=== PATIENT | male | born 1960 | race Caucasian/White ===

== ENCOUNTER 2019-05-08 07:00 | Outpatient (RCR) | payer MEDICARE, MEDICAID, SELFPAY | END 2019-05-21 14:00 | disposition home or self-care (01) | LOC: PT.CARL 07:00 | PROVIDERS: Visit Provider Physician Assistant Medical | DX: M54.5 Low back pain (principal); M25.552 Pain in left hip; M51.36 Other intervertebral disc degeneration, lumbar region | CPT/HCPCS: 97010; 97012; 97014; 97110; 97140; 97163; G0283 ==

== ENCOUNTER → 2023-01-04 08:36 | Outpatient (CLI) | payer MEDICARE, MEDICAID, SELFPAY ==
--- NOTE | 2023-01-04 08:48 | XR_ITS ---
FINAL REPORT CLINICAL HISTORY: foot pain FINDINGS: 3 weight-bearing views of the left foot were obtained. There is no acute fracture or dislocation. The joint spaces are intact. The soft tissues are unremarkable. IMPRESSION: No acute process. Reviewed, Interpreted and Dictated by Sanjeev Sutton MD Transcribed by Perez Riley Authenticated and [facility]
--- NOTE | 2023-01-04 08:48 | XR_ITS ---
FINAL REPORT CLINICAL HISTORY: foot pain FINDINGS: 3 weight-bearing views of the right foot were obtained. There is no acute fracture or dislocation. The joint spaces are intact. There is a small plantar spur. The soft tissues are unremarkable. IMPRESSION: No acute process. Reviewed, Interpreted and Dictated by Sanjeev Sutton MD Transcribed by Perez Riley Authenticated and [facility]
== END ==
PROVIDERS: PCP Nurse Practitioner; Visit Provider Nurse Practitioner Family
DX: M79.671 Pain in right foot (principal); M79.672 Pain in left foot
CPT/HCPCS: 73630

== ENCOUNTER 2023-03-27 08:42 | Emergency (ER) | payer MEDICARE, MEDICAID, SELFPAY ==
[2023-03-27 08:50] VITALS: BP 147/81; PULSE 60; RESP 21; TEMP 36.6; O2SAT 96; BMI 30.9
--- NOTE | 2023-03-27 09:14 | EXP.UTC ---
Discharge Plan Disposition Patient Disposition: Home, Self-Care Condition: Good Prescriptions Prescriptions: New sulfamethoxazole-trimethoprim [Bactrim DS] 800-160 mg tablet 1 tab PO Q12H Qty: 20 0RF phenazopyridine [Pyridium] 200 mg tablet 200 mg PO Q8H 2 Days Qty: 6 0RF No Action divalproex 500 mg tablet extended release 24 hr PO amlodipine 5 mg tablet 5 mg PO Patient Comments: TAKE 1 TABLET BY MOUTH DAILY. tamsulosin 0.4 mg capsule PO propranolol 20 mg tablet 20 mg PO gabapentin 600 mg tablet 600 mg PO Patient Comments: TAKE 1 TABLET BY MOUTH THREE TIMES DAILY NEEDED. esomeprazole magnesium 40 mg capsule,delayed release(DR/EC) 40 mg PO mesalamine 400 mg capsule (with del rel tablets) PO doxycycline hyclate 100 mg capsule 100 mg PO Patient Comments: TAKE 1 CAPSULE BY MOUTH TWICE A DAY. meloxicam 7.5 mg tablet 7.5 mg PO DAILY 30 Days Qty: 30 2RF Referrals Follow up/Referrals: Consuelo Segundo APRN [Primary Care Provider] - See instructions Activity Restrictions/Add. Instructions Additional Instructions/Restrictions: *Increase fluids. Water not Soda or Tea *Start antibiotic immediately and be sure to take as ordered for the FULL length of time although you should start to see improvement over the next 48 hours *Pyridium as needed Remember this medication will turn your urine . This is normal but it will stain what ever it gets on *You should not use Pyridium for more than 48 hours. If so , follow up with your primary physician to review urine culture and ensure that antibiotic is adequate for infection *Be SURE to follow up anytime for new or worsening symptoms with your family doctor. AND in 48 hours for urine culture results with your family doctor, if you do not have a doctor then you may call back to the [facility] for urine culture results and further treatment. We do recommend that you choose and establish care with a Primary Care Physician. ?AND follow up with them ?in 10-14 days to repeat UA to ensure infection is resolved and blood no longer present *Be sure to let your PCP know that we sent urine cultures from the [facility] so they can follow up to ensure that you area the on the correct antibiotic Call your doctor office and make appointment for 48 hours (2 days from today) ?to follow up and get the results of your urine culture and further treatment Straight to ER if you start having any fever, worsening of symptoms, N/V or any life threatening Clinical Impressions Clinical Impression: Urinary tract infection Qualifiers: Urinary tract infection type: site unspecified Hematuria presence: without hematuria Qualified Code(s): N39.0 - Urinary tract infection, site not specified Instructions Patient Instructions: Trimethoprim/Sulfamethoxazole (Alternative Therapy), DI for Urinary Tract Infection (UTI) Discharge ED Provider: Irma Lopez [facility] HPI General Stated complaint: possible bladder infection Mode of Arrival: Ambulatory Source of Information: Patient Limitations: No Limitations Time Seen by Provider: 03/27/23 09:14 Description of Symptoms (Recalled from Triage Doc. by RN): PATIENT C/O BURNING WITH URINATION, PAIN IN GENITAL AREA AND LOWER BACK PAIN SINCE TUESDAY NIGHT HEENT Symptoms (Recalled from RN notes): No Resp Symptoms (Recalled from RN notes): No Skin Symptoms (Recalled from RN notes): No MS Symptoms (Recalled from RN notes): No Functional Status (Recalled from RN notes): WNL History of Present Illness Provider Complaint: Patient states that he has been having burning with urination, achy like pain in his lower back area but has a bad back and tenderness in his private area State that he has been urinating more frequently than usual and just feels sore there Denies swelling or redness in testicles States that feels like he may have a UTI Related Data Home Medications Medication Instruc
[2023-03-27 09:17] LABS: Microscopic, Urine URINE MICROSCOPIC (MICROSCOPIC)
[2023-03-27 09:39] VITALS: BP 147/81; PULSE 60; RESP 21; TEMP 36.6; O2SAT 96
[2023-03-27 09:49] LABS: Appearance,Urine CLEAR (Clear); Blood, Urine Negative (Negative); Glucose,Urine (UA) 3+ (Negative); Ketones,Urine 1+ (Negative); Leukocyte Esterase,Urine Negative (Negative); Nitrate,Urine POSITIVE (Negative); Protein,Urine 2+ (Negative); Specific Gravity, Urine 1.015 (1.005-1.030)
[2023-03-27 10:00] LABS: Bilirubin,Urine Negative (Negative); Color,Urine Orange (Yellow)
[2023-03-27 10:10] LABS: Bacteria,Urine 1+ /lpf; Squamous Epithelial Cell,Urine Occasional #/hpf (0-5)
== END 2023-03-27 10:18 | disposition home or self-care (01) ==
PROVIDERS: Emergency Provider Nurse Practitioner; PCP Nurse Practitioner
DX: N39.0 Urinary tract infection, site not specified (principal); M54.59 Other low back pain
CPT/HCPCS: 81001; 87086; 99204; 99212; G0463

== ENCOUNTER 2023-08-11 16:20 | Emergency (ER) | payer MEDICARE, MEDICAID, SELFPAY ==
[2023-08-11 16:21] VITALS: BP 132/78; PULSE 56; RESP 16; TEMP 36.8; O2SAT 97; BMI 32.3
--- NOTE | 2023-08-11 16:52 | PC.NURSE ---
DR COSME AT BEDSIDE
--- NOTE | 2023-08-11 16:54 | XR_ITS ---
PROCEDURE INFORMATION: Exam: XR Left Wrist Exam date and time: 08/11/2023 4:58 PM Age: 63 years old Clinical indication: Injury or trauma; Fall; Blunt trauma (contusions or hematomas); Wrist; Left; Additional info: Fall injury. Previously broken 3 different times (no surgery) TECHNIQUE: Imaging protocol: Radiologic exam of the left wrist. Views: 3 or more views. Total images: 3 COMPARISON: CR XR FOREARM LT 2V 08/11/2023 4:58 PM FINDINGS: Bones/joints: No evidence of acute fracture or dislocation. Soft tissues: Soft tissues are within normal limits. IMPRESSION: No evidence of acute fracture or dislocation.
--- NOTE | 2023-08-11 16:54 | XR_ITS ---
PROCEDURE INFORMATION: Exam: XR Left Forearm Exam date and time: 08/11/2023 4:58 PM Age: 63 years old Clinical indication: Injury or trauma; Fall; Blunt trauma (contusions or hematomas); Arm, lower; Left; Prior surgery; Surgery date: 6+ months; Surgery type: Nerve removed; Additional info: Fall injury TECHNIQUE: Imaging protocol: Radiologic exam of the left forearm. Views: 2 views. Total images: 2 COMPARISON: CR XR HAND LT MIN 3V 08/11/2023 4:58 PM FINDINGS: Bones/joints: No evidence of acute fracture or dislocation. Soft tissues: Soft tissues are within normal limits. IMPRESSION: No evidence of acute fracture or dislocation.
--- NOTE | 2023-08-11 16:54 | XR_ITS ---
PROCEDURE INFORMATION: Exam: XR Left Hand Exam date and time: 08/11/2023 4:58 PM Age: 63 years old Clinical indication: Injury or trauma; Fall; Blunt trauma (contusions or hematomas); Hand; Left; Additional info: Fall injury TECHNIQUE: Imaging protocol: Radiologic exam of the left hand. Views: 3 or more views. Total images: 2 COMPARISON: CR XR FOREARM LT 2V 08/11/2023 4:58 PM FINDINGS: Bones/joints: No evidence of acute fracture or dislocation. Degenerative changes of the interphalangeal joints. Soft tissues: Mild soft tissue swelling. IMPRESSION: 1. No evidence of acute fracture or dislocation. 2. Mild soft tissue swelling. 3. Degenerative changes of the interphalangeal joints.
--- NOTE | 2023-08-11 16:55 | ED_ITS ---
Discharge Plan Disposition Patient Disposition: Home, Self-Care Prescriptions Prescriptions: No Action divalproex 500 mg tablet extended release 24 hr PO amlodipine 5 mg tablet 5 mg PO Patient Comments: TAKE 1 TABLET BY MOUTH DAILY. tamsulosin 0.4 mg capsule PO propranolol 20 mg tablet 20 mg PO gabapentin 600 mg tablet 600 mg PO Patient Comments: TAKE 1 TABLET BY MOUTH THREE TIMES DAILY NEEDED. esomeprazole magnesium 40 mg capsule,delayed release(DR/EC) 40 mg PO mesalamine 400 mg capsule (with del rel tablets) PO doxycycline hyclate 100 mg capsule 100 mg PO Patient Comments: TAKE 1 CAPSULE BY MOUTH TWICE A DAY. meloxicam 7.5 mg tablet 7.5 mg PO DAILY 30 Days Qty: 30 2RF sulfamethoxazole-trimethoprim [Bactrim DS] 800-160 mg tablet 1 tab PO Q12H Qty: 20 0RF phenazopyridine [Pyridium] 200 mg tablet 200 mg PO Q8H 2 Days Qty: 6 0RF Referrals Follow up/Referrals: Andrei Calhoun DO [Staff Physician] - See instructions (if you are not improving in 1-2 weeks ) Consuelo Segundo APRN [Primary Care Provider] - See instructions Clinical Impressions Clinical Impression: Left wrist sprain Discharge ED Provider: Fernando Pyle General Adult HPI General Chief complaint: PAIN Stated complaint: AO [id number] lt wrist injury Time Seen by Provider: 08/11/23 16:52 Mode of Arrival: Ambulatory Source of Information: Patient Limitations: No Limitations Description of Symptoms (Recalled from ER Triage Doc. by RN): pt presents to ED with c/o left wrist pain. pt states he tripped and fell earlier today. pt reports he stuck his hands out in front of him to catch himself when he was falling. pt reports pain in right wrist, but not as bad as left wrist History of Present Illness HPI narrative: Is a 63-year-old male presents today with left forearm wrist and hand pain after falling. This was a mechanical fall where he tripped over a board. Fell majority on his left hand no injuries elsewhere. States he has broken his wrist multiple times in the past on the same side that he is hurting today. Denies any need for any type of pain medication. Has normal function and sensory history. Related Data Home Medications Medication Instructions Recorded Confirmed amlodipine 5 mg tablet 5 mg PO 01/04/23 01/04/23 divalproex 500 mg tablet,extended tab PO 01/04/23 01/04/23 release 24 hr doxycycline hyclate 100 mg capsule 100 mg PO 01/04/23 01/04/23 esomeprazole magnesium 40 mg 40 mg PO 01/04/23 01/04/23 capsule,delayed release gabapentin 600 mg tablet 600 mg PO 01/04/23 01/04/23 mesalamine 400 mg capsule (with cap PO 01/04/23 01/04/23 delayed release tablets inside) propranolol 20 mg tablet 20 mg PO 01/04/23 01/04/23 tamsulosin 0.4 mg capsule cap PO 01/04/23 01/04/23 Previous Rx's Medication Instructions Recorded meloxicam 7.5 mg tablet 7.5 mg PO DAILY RIGHT FOOT PAIN 30 01/04/23 days #30 tabs phenazopyridine 200 mg tablet 200 mg PO Q8H pain 2 days #6 tabs 03/27/23 (Pyridium) sulfamethoxazole 800 1 tab PO Q12H #20 tabs 03/27/23 mg-trimethoprim 160 mg tablet (Bactrim DS) Allergies Allergy/AdvReac Type Severity Reaction Status Date / Time prednisone Allergy Mild Verified 08/11/23 16:36 levofloxacin [From Levaquin] Allergy Verified 08/11/23 16:36 lithium Allergy Verified 08/11/23 16:36 metronidazole [From Flagyl] Allergy Verified 08/11/23 16:36 mometasone furoate Allergy Verified 08/11/23 16:36 [From Asmanex Twisthaler] montelukast [From Singulair] Allergy Verified 08/11/23 16:36 [facility] Disclaimer: The information contained in this section may have been updated after the patient was seen, as this information can be updated by other users. Surgical History (Updated 01/04/23 @ 09:30 by MONCHO Hale) History of hip replacement Family History (Updated 01/04/23 @ 09:33 by MONCHO Hale) Brother Asthma Hypertension Mother Cancer Hypertension Sister Diabetes Hypertension Brother Diabetes Hypertension Grandfather Tuberculosis Social History (Updated 01/04/23 @ 09:35 by MONCHO Hale) Smoking Status: Never smoker second hand exposure: No alcohol intake: never substance use type: denies use current occupational status: unemployed Travel in the last 8 weeks: None lives independently: No marital status: ROS Obtained: Yes All systems reviewed & no additional complaints except as documented Physical Exam General General appearance: alert Respiratory Respiratory exam: Present normal lung sounds bilaterally Cardiovascular Cardiovascular exam: Present regular rate; Absent tachycardia Extremities Exam Extremities exam: Present other (Patient has significant tenderness over the distal radius on the left hand in the middle aspect of the dorsal aspect of the left hand also has some pain with compression of the proximal forearm normal neurovascular exam) Neurological Exam Neurological exam: Present alert and oriented X3 Medical Decision Making Jeet Inquiry Pt receiving controlled substance: No Vital Signs: 08/11/23 16:21 08/11/23 17:41 Temperature 98.2 F 97.9 F Temperature Source Oral Oral Pulse Rate 62 Pulse Rate [Left Radial] 56 L Respiratory Rate 16 18 Blood Pressure 135/84 Blood Pressure [Right Arm] 132/78 Blood Pressure Mean [Right Arm] 96 Blood Pressure Source Automatic Cuff Blood Pressure Position Sitting 02 Sat by Pulse Oximetry 97 Oxygen Delivery Method Room Air Room Air Orders (Tests/Meds): ORDERS Category Date Time Status Forearm XR left 2 views [XR forearm LT 2V] Stat Exams 08/11/23 16:54 Completed Wrist XR left minimum 3 views [XR wrist LT min 3V] Stat Exams 08/11/23 16:54 Completed XR hand LT min 3V Stat Exams 08/11/23 16:54 Completed Medical Decision Narrative: With above history differential includes left forearm wrist and hand sprain fracture dislocation we will get plain films for further evaluation. Reassessment 5:42 PM x-rays of the forearm wrist and hand were performed which I personally interpreted shows no acute fracture or dislocation this is consistent with radiology read patient was given a Velcro splint for comfort and advised to follow-up with orthopedics in 1 to 2 weeks if not improving otherwise supportive care discussed. Critical Care Critical Care Time Critical Care Time: No
[2023-08-11 17:41] VITALS: BP 135/84; PULSE 62; RESP 18; TEMP 36.6; O2SAT 97
--- NOTE | 2023-08-16 23:37 | PC.NURSE ---
chart accessed for ortho paperwork
== END 2023-08-11 17:43 | disposition home or self-care (01) ==
PROVIDERS: Emergency Provider Emergency Medicine; PCP Nurse Practitioner
DX: S63.502A Unspecified sprain of left wrist, initial encounter (principal); W01.0XXA Fall on same level from slipping, tripping and stumbling without subsequent striking against object, initial encounter
CPT/HCPCS: 73090; 73110; 73130; 99284

== ENCOUNTER 2024-03-13 20:44 | Emergency (ER) | payer MEDICARE, MEDICAID, SELFPAY ==
[2024-03-13 20:45] VITALS: BP 142/85; PULSE 66; RESP 18; TEMP 36.9; O2SAT 95; BMI 31.3
--- NOTE | 2024-03-13 21:26 | ED_ITS ---
Discharge Plan Disposition Patient Disposition: Home, Self-Care Prescriptions Prescriptions: No Action divalproex 500 mg tablet extended release 24 hr PO amlodipine 5 mg tablet 5 mg PO Patient Comments: TAKE 1 TABLET BY MOUTH DAILY. tamsulosin 0.4 mg capsule PO propranolol 20 mg tablet 20 mg PO gabapentin 600 mg tablet 600 mg PO Patient Comments: TAKE 1 TABLET BY MOUTH THREE TIMES DAILY NEEDED. esomeprazole magnesium 40 mg capsule,delayed release(DR/EC) 40 mg PO mesalamine 400 mg capsule (with del rel tablets) PO doxycycline hyclate 100 mg capsule 100 mg PO Patient Comments: TAKE 1 CAPSULE BY MOUTH TWICE A DAY. meloxicam 7.5 mg tablet 7.5 mg PO DAILY 30 Days Qty: 30 2RF sulfamethoxazole-trimethoprim [Bactrim DS] 800-160 mg tablet 1 tab PO Q12H Qty: 20 0RF phenazopyridine [Pyridium] 200 mg tablet 200 mg PO Q8H 2 Days Qty: 6 0RF Referrals Follow up/Referrals: Consuelo Segundo APRN [Primary Care Provider] - See instructions Activity Restrictions/Add. Instructions Additional Instructions/Restrictions: At this time it was felt you are safe to be discharged home. If new or worsening symptoms please do not hesitate to return the emergency department. Please apply 0.5 cm strip in the inferior lid of your erythromycin ointment 3 times a day for 5 days as discussed. Clinical Impressions Clinical Impression: Foreign body, intraocular, Corneal abrasion Print Language Print Language: Mohawk Discharge ED Provider: Fernando Pyle General Adult HPI General Chief complaint: Eye Problems Stated complaint: FB RT eye Time Seen by Provider: 03/13/24 20:53 Mode of Arrival: Ambulatory Source of Information: Patient Limitations: No Limitations Description of Symptoms (Recalled from ER Triage Doc. by RN): Pt to ED with c/o something in his right eye. states it could possibly be metal. History of Present Illness HPI narrative: Patient is 63-year-old male, diabetic who presents emergency department for ocular foreign body. Patient was backing out of screw over his head when he had a thea of something fall in his right eye. He was not welding. He was not angled grinding. No other acute complaints at this time. Related Data Home Medications ?Medication ?Instructions ?Recorded ?Confirmed amlodipine 5 mg tablet 5 mg PO 01/04/23 01/04/23 divalproex 500 mg tablet,extended tab PO 01/04/23 01/04/23 release 24 hr doxycycline hyclate 100 mg capsule 100 mg PO 01/04/23 01/04/23 esomeprazole magnesium 40 mg 40 mg PO 01/04/23 01/04/23 capsule,delayed release gabapentin 600 mg tablet 600 mg PO 01/04/23 01/04/23 mesalamine 400 mg capsule (with cap PO 01/04/23 01/04/23 delayed release tablets inside) propranolol 20 mg tablet 20 mg PO 01/04/23 01/04/23 tamsulosin 0.4 mg capsule cap PO 01/04/23 01/04/23 Previous Rx's ?Medication ?Instructions ?Recorded meloxicam 7.5 mg tablet 7.5 mg PO DAILY RIGHT FOOT PAIN 01/04/23 days #30 tabs phenazopyridine 200 mg tablet 200 mg PO Q8H pain 2 days #6 tabs 03/27/23 (Pyridium) sulfamethoxazole 800 1 tab PO Q12H #20 tabs 03/27/23 mg-trimethoprim 160 mg tablet (Bactrim DS) Allergies Allergy/AdvReac Type Severity Reaction Status Date / Time prednisone Allergy Mild Verified 08/11/23 16:36 levofloxacin [From Levaquin] Allergy Verified 08/11/23 16:36 lithium Allergy Verified 08/11/23 16:36 metronidazole [From Flagyl] Allergy Verified 08/11/23 16:36 mometasone furoate Allergy Verified 08/11/23 16:36 [From Asmanex Twisthaler] montelukast [From Singulair] Allergy Verified 08/11/23 16:36 PFSH PFS Disclaimer: The information contained in this section may have been updated after the patient was seen, as this information can be updated by other users. Surgical History (Updated 01/04/23 @ 09:30 by MONCHO Hale) History of hip replacement Family History (Updated 01/04/23 @ 09:33 by MONCHO Hale) Brother Asthma Hypertension Mother Cancer Hypertension Sister Diabetes Hypertension Brother Diabetes Hypertension Grandfather Tuberculosis Social History (Updated 01/04/23 @ 09:35 by MONCHO Hale) Smoking Status: Current some day smoker second hand exposure: No alcohol intake: never substance use type: denies use current occupational status: unemployed Travel in the last 8 weeks: None lives independently: No marital status: ROS Obtained: Yes Systems reviewed as appropriate & no additional complaints except as documented Physical Exam General General appearance: alert and in no apparent distress Head Head exam: atraumatic and normocephalic Eye Eye exam: Present PERRL and other (Ocular foreign body at the 6:00 while looking extreme vertical gaze along the sclera and conjunctiva.) ENT ENT exam: Present mucous membranes moist Neck Neck exam: Present normal inspection Chest Chest inspection: Present normal inspection Respiratory Respiratory exam: Absent respiratory distress Cardiovascular Cardiovascular exam: Present regular rate and normal rhythm Abdominal Exam Abdominal exam: Present soft Extremities Exam Extremities exam: Present normal inspection Neurological Exam Neurological exam: Present alert Psychiatric Psychiatric exam: Present normal affect Skin Skin exam: Present warm and dry Medical Decision Making Jeet Inquiry Pt receiving controlled substance: No Vital Signs: 03/13/24 20:45 03/13/24 21:27 Temperature 98.4 F 98.4 F Temperature Source Oral Oral Pulse Rate 65 Pulse Rate [Left Radial] 66 Respiratory Rate 18 18 Blood Pressure 132/81 Blood Pressure [Right Arm] 142/85 H Blood Pressure Mean [Right Arm] 104 Blood Pressure Source Automatic Cuff Blood Pressure Source [Right Arm] Automatic Cuff Blood Pressure Position Sitting Blood Pressure Position [Right Arm] Sitting 02 Sat by Pulse Oximetry 95 Oxygen Delivery Method Room Air Room Air Medical Decision Narrative: In summary patient is 63-year-old male past medical history described who presents emergency department for evaluation of ocular foreign body. Patient is hemodynamically stable nontoxic-appearing but arrival, afebrile. Initially was unable to locate ocular foreign body however upon fluorescein exam and with help from patient's significant other at bedside it was identified at 6:00 with extreme vertical gaze. It was easily removed with a Q-tip. He has a small corneal abrasion for which she will be treated with erythromycin and outpatient basis. Patient is appropriate for discharge at this time after his Tdap was updated. Procedure: Procedure performed was ocular examination. Procedure performed by Fernando Pyle. Using topical tetracaine the eye was numbed with good effect. Fluorescein staining showed corneal abrasion about the foreign body at 6:00 in the right eye with extreme vertical gaze. Critical Care Critical Care Time Critical Care Time: No
[2024-03-13 21:27] VITALS: BP 132/81; PULSE 65; RESP 18; TEMP 36.9; O2SAT 96
[2024-03-13] MEDS: TET/DIPHTH/PERT-ADULT 0.5ML SYRINGE 0.5 ML IM (21:32)
[2024-03-13] MEDS: ERYTHROMYCIN BASE 1 GM OINT...G. OP (21:41)
[2024-03-13] MEDS: FLUORESCEIN SODIUM 1MG STRIP 1 MG OP (21:41)
[2024-03-13] MEDS: TETRACAINE 0.5% OPTH SOL 15ML OP (21:43)
== END 2024-03-13 21:53 | disposition home or self-care (01) ==
PROVIDERS: Emergency Provider Emergency Medicine; PCP Nurse Practitioner
DX: T15.01XA Foreign body in cornea, right eye, initial encounter (principal); W44.9XXA Unspecified foreign body entering into or through a natural orifice, initial encounter; Z23 Encounter for immunization
CPT/HCPCS: 65220; 90471; 90715; 99283

== ENCOUNTER 2024-03-29 18:11 | Emergency (ER) | payer MEDICARE, MEDICAID, SELFPAY ==
[2024-03-29 18:14] VITALS: BP 128/79; PULSE 59; RESP 18; TEMP 36.6; O2SAT 97; BMI 32.4
[2024-03-29 18:31] VITALS: BP 118/70; PULSE 61; O2SAT 95
[2024-03-29 19:01] VITALS: BP 109/65; PULSE 60; O2SAT 96
--- NOTE | 2024-03-29 19:08 | HMH.EDGENADL ---
Discharge Plan Disposition Patient Disposition: Home, Self-Care Prescriptions Prescriptions: No Action divalproex 500 mg tablet extended release 24 hr PO amlodipine 5 mg tablet 5 mg PO Patient Comments: TAKE 1 TABLET BY MOUTH DAILY. tamsulosin 0.4 mg capsule PO propranolol 20 mg tablet 20 mg PO gabapentin 600 mg tablet 600 mg PO Patient Comments: TAKE 1 TABLET BY MOUTH THREE TIMES DAILY NEEDED. esomeprazole magnesium 40 mg capsule,delayed release(DR/EC) 40 mg PO mesalamine 400 mg capsule (with del rel tablets) PO doxycycline hyclate 100 mg capsule 100 mg PO Patient Comments: TAKE 1 CAPSULE BY MOUTH TWICE A DAY. meloxicam 7.5 mg tablet 7.5 mg PO DAILY 30 Days Qty: 30 2RF sulfamethoxazole-trimethoprim [Bactrim DS] 800-160 mg tablet 1 tab PO Q12H Qty: 20 0RF phenazopyridine [Pyridium] 200 mg tablet 200 mg PO Q8H 2 Days Qty: 6 0RF Referrals Follow up/Referrals: Consuelo Segundo APRN [Primary Care Provider] - See instructions Activity Restrictions/Add. Instructions Additional Instructions/Restrictions: Your symptoms are consistent with a concussion and postconcussive symptoms. As discussed to 48 hours out from an injury is exceedingly unlikely with your exam that we would find anything on a CAT scan that would require neurosurgical intervention. A CT scan was offered however after discussion and shared decision making and you stating that you would not even consider neurosurgical intervention there is no indication for ordering a CT scan as that would be the purpose of ordering the test would be to look for those abnormalities that would require further intervention. Please return with any significant worsening of her mental status neurologic deficits or other concerns. Otherwise expect postconcussive symptoms allow several days to weeks. Clinical Impressions Clinical Impression: Concussion Print Language Print Language: [place] Discharge ED Provider: Supriya Plummer General Adult [facility] General Chief complaint: Head Injury Stated complaint: Sent by janna Castillo in head with low beam Time Seen by Provider: 03/29/24 19:01 Mode of Arrival: Ambulatory Source of Information: Patient Limitations: No Limitations Description of Symptoms (Recalled from ER Triage Doc. by RN): c/o slurred speech, stuttering, dizziness and head pain that goes into the back of his neck since hitting his head on a beam, states he was walking his dog 8-10 days ago and he ran him into a beam causing him to hit the top of his head. Denies any loc, Pt states he has had a decreased appetite and nausea, ozempic started 5 weeks ago. Pt reports that he found a tick on his groin yesterday and if everything is negative in the ER, she is starting him on medicine for lyme disease. History of Present Illness HPI narrative: The patient is a 63-year-old man presenting today after being told to come to the Emergency Department for further evaluation after a head injury from 48 hours ago. He is not any antiplatelets or any anticoagulation. States that he was walking a dog that led him into a beam and struck the top portion of his head. Since that time he had some nausea and vomiting some dizziness. No changes in his mental status or no focal neurologic deficits according to he and his family member who is at the bedside. Does have some chronic nausea vomiting associated with Ozempic. Additionally he had an embedded tick that he saw his doctor for earlier today that they will be treating outpatient but he does not complaining of anything regarding that today. Related Data Home Medications ?Medication ?Instructions ?Recorded ?Confirmed amlodipine 5 mg tablet 5 mg PO 01/04/23 01/04/23 divalproex 500 mg tablet,extended tab PO 01/04/23 01/04/23 release 24 hr doxycycline hyclate 100 mg capsule 100 mg PO 01/04/23 01/04/23 esomeprazole magnesium 40 mg 40 mg PO 01/04/23 01/04/23 capsule,delayed release gabapentin 600 mg tablet 600 mg PO 01/04/23 01/04/23 mesalamine 400 mg capsule (with cap PO 01/04/23 01/04/23 delayed release tablets inside) propranolol 20 mg tablet 20 mg PO 01/04/23 01/04/23 tamsulosin 0.4 mg capsule cap PO 01/04/23 01/04/23 Previous Rx's ?Medication ?Instructions ?Recorded meloxicam 7.5 mg tablet 7.5 mg PO DAILY RIGHT FOOT PAIN 01/04/23 days #30 tabs phenazopyridine 200 mg tablet 200 mg PO Q8H pain 2 days #6 tabs 03/27/23 (Pyridium) sulfamethoxazole 800 1 tab PO Q12H #20 tabs 03/27/23 mg-trimethoprim 160 mg tablet (Bactrim DS) Allergies Allergy/AdvReac Type Severity Reaction Status Date / Time prednisone Allergy Mild Verified 08/11/23 16:36 levofloxacin [From Levaquin] Allergy Verified 08/11/23 16:36 lithium Allergy Verified 08/11/23 16:36 metronidazole [From Flagyl] Allergy Verified 08/11/23 16:36 mometasone furoate Allergy Verified 08/11/23 16:36 [From Asmanex Twisthaler] montelukast [From Singulair] Allergy Verified 08/11/23 16:36 [facility] Disclaimer: The information contained in this section may have been updated after the patient was seen, as this information can be updated by other users. Surgical History (Updated 01/04/23 @ 09:30 by MONCHO Hale) History of hip replacement Family History (Updated 01/04/23 @ 09:33 by MONCHO Hale) Brother Asthma Hypertension Mother Cancer Hypertension Sister Diabetes Hypertension Brother Diabetes Hypertension Grandfather Tuberculosis Social History (Updated 01/04/23 @ 09:35 by MONCHO Hale) Smoking Status: Unknown if ever smoked second hand exposure: No alcohol intake: never substance use type: denies use current occupational status: unemployed Travel in the last 8 weeks: None lives independently: No marital status: ROS Obtained: Yes All systems reviewed & no additional complaints except as documented Physical Exam General General appearance: alert and in no apparent distress Head Head exam: other (No evidence of depressible fracture Murray sign or raccoon eyes) Neck Neck exam: Absent tenderness Respiratory Respiratory exam: Present normal lung sounds bilaterally Cardiovascular Cardiovascular exam: Present regular rate and normal rhythm Neurological Exam Neurological exam: Present alert, oriented X3, CN II-XII intact and normal gait; Absent motor sensory deficit Medical Decision Making Jeet Inquiry Pt receiving controlled substance: No Vital Signs: 03/29/24 18:14 03/29/24 18:31 03/29/24 19:01 Temperature 97.9 F Temperature Source Oral Pulse Rate 61 60 Pulse Rate [Left Radial] 59 L Respiratory Rate 18 Blood Pressure 118/70 109/65 L Blood Pressure [Right Arm] 128/79 Blood Pressure Mean [Right Arm] 95 Blood Pressure Source [Right Arm] Automatic Cuff 02 Sat by Pulse Oximetry 97 95 96 Oxygen Delivery Method Room Air Medical Decision Narrative: 63-year-old to 48 hours out not on any anticoagulants or antiplatelets presenting today after a minor head injury nausea and vomiting. Symptoms are consistent with a concussion. Exceedingly unlikely that we would find any type of abnormality on his CAT scan that would require neurosurgical intervention and from my perspective that is the purpose of a CT scan in the setting of acute head trauma. He is also [place] head CT negative. After extensive discussion with the patient and shared decision making he also told me that he would not even be willing to consider neurosurgical intervention even if we did find an abnormality, we decided not to proceed with a CT scan. I have advised that he and his family member keep an eye on him if his mental status worsens that he should return but at this point no indication for any CT imaging as it would not change any management. He has been advised of what to expect with postconcussive symptoms and postconcussive syndrome and he is aware of this and agreeable to this plan. He will follow back up with his primary care doctor tomorrow regarding the tick bite that he was evaluated for earlier today. I do not believe that has anything to do with his presentation today. Critical Care Critical Care Time Critical Care Time: No
[2024-03-29 19:12] VITALS: BP 109/65; PULSE 77; RESP 18; TEMP 36.7; O2SAT 98
== END 2024-03-29 19:13 | disposition home or self-care (01) ==
PROVIDERS: Emergency Provider Student in an Organized Health Care Education/Training Program; PCP Nurse Practitioner
DX: S06.0X0A Concussion without loss of consciousness, initial encounter (principal); R11.2 Nausea with vomiting, unspecified; R42 Dizziness and giddiness; W22.8XXA Striking against or struck by other objects, initial encounter
CPT/HCPCS: 99283

== ENCOUNTER 2024-05-29 17:15 | Emergency (ER) | payer MEDICARE, MEDICAID, SELFPAY ==
[2024-05-29 17:45] VITALS: BP 117/76; PULSE 93; RESP 21; TEMP 37.9; O2SAT 97; BMI 31.4
--- NOTE | 2024-05-29 18:10 | ED_ITS ---
Discharge Plan Disposition Patient Disposition: Home, Self-Care Condition: Good Prescriptions Prescriptions: New azithromycin [Zithromax Z-Dangelo] 250 mg tablet See Rx Instructions .ROUTE .COMPLEX 5 Days Qty: 6 0RF Rx Instructions: For 250 mg dose pack: take 500 mg today (day 1), then 250 mg for 4 days (days 2-5) benzonatate 100 mg capsule 100 mg PO TID PRN (Reason: cough) Qty: 30 0RF guaifenesin [Mucinex] 600 mg tablet extended release 12hr 600 mg PO BID PRN (Reason: cough) Qty: 20 0RF ondansetron 4 mg tablet,disintegrating 4 mg PO Q8H PRN (Reason: nausea and vomiting) Qty: 10 0RF No Action gabapentin 600 mg tablet 600 mg PO TID Patient Comments: TAKE ONE TABLET BY MOUTH THREE TIMES DAILY atorvastatin 20 mg tablet 20 mg PO DAILY Patient Comments: TAKE ONE TABLET BY MOUTH DAILY amlodipine 5 mg tablet 5 mg PO DAILY Patient Comments: TAKE ONE TABLET BY MOUTH DAILY ropinirole 2 mg tablet 2 mg PO HS Patient Comments: TAKE ONE TABLET BY MOUTH NIGHTLY AT BEDTIME esomeprazole magnesium 40 mg capsule,delayed release(DR/EC) 40 mg PO BID Patient Comments: TAKE ONE CAPSULE BY MOUTH TWICE DAILY finasteride 5 mg tablet 5 mg PO DAILY Patient Comments: TAKE ONE TABLET BY MOUTH ONCE DAILY alfuzosin 10 mg tablet extended release 24 hr 10 mg PO DAILY Patient Comments: TAKE ONE TABLET BY MOUTH EVERY DAY mesalamine 0.375 gram capsule,extended release 24hr 0.375 g PO DAILY Patient Comments: Take 4 capsules every day by oral route as directed for 90 days. Jardiance 25 mg tablet 25 mg PO DAILY Patient Comments: Take 1 tablet every day by oral route. Ozempic 0.25 mg or 0.5 mg (2 mg/3 mL) pen injector 0.25 mg SQ WEEKLY Patient Comments: INJECT 0.25 MG WEEKLY SUBCUTANEOUSLY FOR 30 DAYS Referrals Follow up/Referrals: Consuelo Segundo APRN [Primary Care Provider] - See instructions Activity Restrictions/Add. Instructions Additional Instructions/Restrictions: * Start antibiotic today. Be sure to complete entire prescription even if feeling better * Monitor temp. Tylenol every 4 hours as needed and / or ibuprofen every 6 hours as needed ( As long as your primary care physician has told you that it ok to take both. For fever/aches/pains ER if no less than 101 despite Tylenol or Motrin * Humidifier/vaporizer or hot steamy shower * Inhaler every 4-6 hours as needed like we discussed. If unsure how to use it, ask pharmacist to demonstrate how. Should help open airways and improve cough, wheezing, and shortness of breath * Mucinex during the day for your cough and cough suppressant only at night. Be sure to drink lots of water. *Tessalon Perles will not cause drowsiness but use at bedtime to help stop cough so that you may get some rest. Follow up IMMEDIATELY for new or worsening of symptoms OR no noticeable improvement over the next 48-72 hours. 911 immediately for any life threatening symptoms such as chest pain or difficulty breathing Clinical Impressions Clinical Impression: Bronchitis Instructions Patient Instructions: Cough Print Language Print Language: [place] Discharge ED Provider: Irma Lopez [facility] [place] General Stated complaint: cough,body aches,headache Mode of Arrival: Ambulatory Source of Information: Patient Limitations: No Limitations Time Seen by Provider: 05/29/24 18:11 Description of Symptoms (Recalled from Triage Doc. by RN): PATIENT C/O COUGH, SORE THROAT, BODY ACHES, NAUSEA, AND CHEST CONGESTION SINCE TUESDAY MORNING HEENT Symptoms (Recalled from RN notes): Yes Resp Symptoms (Recalled from RN notes): Yes Skin Symptoms (Recalled from RN notes): No MS Symptoms (Recalled from RN notes): No Functional Status (Recalled from RN notes): WNL History of Present Illness Provider Complaint: Patient states that he had COVID about 3 weeks ago, States since Tuesday he has been having cough, sore throat, chest congestion and at times nausea/vomiting after coughing episode, and fever States today he was having chills and not feeling any better States feels like bronchitis so he came in to get checked Related Data Home Medications ?Medication ?Instructions ?Recorded ?Confirmed alfuzosin 10 mg tablet,extended 10 mg PO DAILY 05/29/24 05/29/24 release 24 hr amlodipine 5 mg tablet 5 mg PO DAILY 05/29/24 05/29/24 atorvastatin 20 mg tablet 20 mg PO DAILY 05/29/24 05/29/24 empagliflozin 25 mg tablet 25 mg PO DAILY 05/29/24 05/29/24 (Jardiance) esomeprazole magnesium 40 mg 40 mg PO BID 05/29/24 05/29/24 capsule,delayed release finasteride 5 mg tablet 5 mg PO DAILY 05/29/24 05/29/24 gabapentin 600 mg tablet 600 mg PO TID 05/29/24 05/29/24 mesalamine 0.375 gram 0.375 g PO DAILY 05/29/24 05/29/24 capsule,extended release 24 hr ropinirole 2 mg tablet 2 mg PO HS 05/29/24 05/29/24 semaglutide 0.25 mg or 0.5 mg (2 0.25 mg SQ WEEKLY 05/29/24 05/29/24 mg/3 mL) subcutaneous pen injector (Ozempic) Previous Rx's ?Medication ?Instructions ?Recorded azithromycin 250 mg tablet See Rx Instructions PO .COMPLEX 5 05/29/24 (Zithromax Z-Dangelo) days #6 tabs benzonatate 100 mg capsule 100 mg PO TID PRN cough #30 caps 05/29/24 guaifenesin 600 mg tablet, 600 mg PO BID PRN cough #20 tabs 05/29/24 extended release 12 hr (Mucinex) ondansetron 4 mg disintegrating 4 mg PO Q8H PRN nausea and 05/29/24 tablet vomiting #10 tabs Allergies Allergy/AdvReac Type Severity Reaction Status Date / Time prednisone Allergy Mild Verified 08/11/23 16:36 levofloxacin [From Levaquin] Allergy Verified 08/11/23 16:36 lithium Allergy Verified 08/11/23 16:36 metronidazole [From Flagyl] Allergy Verified 08/11/23 16:36 mometasone furoate Allergy Verified 08/11/23 16:36 [From Asmanex Twisthaler] montelukast [From Singulair] Allergy Verified 08/11/23 16:36 Worker's Comp Is this a Worker's Comp case?: No [facility] Disclaimer: The information contained in this section may have been updated after the patient was seen, as this information can be updated by other users. Medical History (Updated 05/29/24 @ 18:33 by Irma Lopez APRN) GERD (gastroesophageal reflux disease) Depression Anxiety Diabetes mellitus, type 2 Hyperlipidemia Hypertension Surgical History (Updated 05/29/24 @ 17:54 by Ashley King RN) History of cholecystectomy History of hip replacement Family History (Updated 01/04/23 @ 09:33 by MONCHO Hale) Brother Asthma Hypertension Mother Cancer Hypertension Sister Diabetes Hypertension Brother Diabetes Hypertension Grandfather Tuberculosis Social History (Updated 01/04/23 @ 09:35 by MONCHO Hale) Smoking Status: Unknown if ever smoked second hand exposure: No alcohol intake: never substance use type: denies use current occupational status: unemployed Travel in the last 8 weeks: None lives independently: No marital status: ROS Obtained: Yes All systems reviewed & no additional complaints except as documented and Yes Systems reviewed as appropriate & no additional complaints except as documented Constitutional Constitutional: Reports system reviewed and no additional complaints, except as documented, Reports as per HPI, Reports body ache, Reports chills, Reports fever(s) and Reports headache(s) ENT Ears, Nose, Mouth, and Throat: Reports system reviewed and no additional complaints, except as documented, Reports as per HPI and Reports headache(s) Cardiovascular Cardiovascular: Reports system reviewed and no additional complaints, except as documented and Reports as per HPI Respiratory Respiratory: Reports system reviewed and no additional complaints, except as documented, Reports as per HPI, Reports chest congestion and Reports cough Gastrointestinal Gastrointestingal: Reports system reviewed and no additional complaints, except as documented, as per HPI, nausea and vomiting Neurologic Neurologic: Reports headache(s) Physical Exam General General appearance: alert and in no apparent distress ENT ENT exam: Present mucous membranes moist Expanded ENT Exam Throat exam: Present tonsillar erythema Respiratory Respiratory exam: Present normal lung sounds bilaterally; Absent respiratory distress or wheezes Cardiovascular Cardiovascular exam: Present regular rate, normal rhythm and normal heart sounds Abdominal Exam Abdominal exam: Present soft and normal bowel sounds; Absent distention or tenderness Neurological Exam Neurological exam: Present alert, oriented X3 and normal gait Medical Decision Making Medical Records Screening: Per USPSTF and CDC recommendations, given the prevalence of disease in our region, it is our hospital?s policy to screen for HIV and viral Hepatitis for all patients aged 18 and over and those with ongoing risk factors. Jeet Inquiry Pt receiving controlled substance: No Jeet was queried for this patient: No Vital Signs: 05/29/24 17:45 Temperature 100.3 F H Temperature Source Oral Pulse Rate [Left Brachial] 93 H Respiratory Rate 21 Blood Pressure [Left Arm] 117/76 Blood Pressure Mean [Left Arm] 89 Blood Pressure Source [Left Arm] Automatic Cuff Blood Pressure Position [Left Arm] Sitting 02 Sat by Pulse Oximetry 97 Oxygen Delivery Method Room Air Lab Data Lab results reviewed: Yes I reviewed the patient's lab results. Medical Decision Narrative: discussed CXR and Rocephin injection and pt declined at this time Will cover with azithromycin, and mucinex and patient given strict return precautions and to follow up with PCP later this week
[2024-05-29 18:13] LABS: UTC Influenza A Antigen Negative (Negative); UTC Influenza B Antigen Negative (Negative); UTC Strep Screen (Rapid) Negative (Negative)
[2024-05-29 18:41] VITALS: BP 117/76; PULSE 93; RESP 21; TEMP 37.9; O2SAT 97
[2024-05-29] MEDS: AZITHROMYCIN 250MG TABLET 500 MG PO (18:46)
== END 2024-05-29 18:47 | disposition home or self-care (01) ==
PROVIDERS: Emergency Provider Nurse Practitioner; PCP Nurse Practitioner
DX: J40 Bronchitis, not specified as acute or chronic (principal)
CPT/HCPCS: 87804; 87880; 99213; G0381

== ENCOUNTER 2024-07-07 07:45 | Emergency (ER) | payer MEDICARE, MEDICAID, SELFPAY ==
[2024-07-07 07:46] VITALS: BP 117/73; PULSE 71; RESP 16; TEMP 36.6; O2SAT 97; BMI 30.7
--- NOTE | 2024-07-07 07:48 | ED_ITS ---
Discharge Plan Disposition Patient Disposition: Home, Self-Care Condition: Good Prescriptions Prescriptions: No Action gabapentin 600 mg tablet 600 mg PO TID Patient Comments: TAKE ONE TABLET BY MOUTH THREE TIMES DAILY atorvastatin 20 mg tablet 20 mg PO DAILY Patient Comments: TAKE ONE TABLET BY MOUTH DAILY amlodipine 5 mg tablet 5 mg PO DAILY Patient Comments: TAKE ONE TABLET BY MOUTH DAILY ropinirole 2 mg tablet 2 mg PO HS Patient Comments: TAKE ONE TABLET BY MOUTH NIGHTLY AT BEDTIME esomeprazole magnesium 40 mg capsule,delayed release(DR/EC) 40 mg PO BID Patient Comments: TAKE ONE CAPSULE BY MOUTH TWICE DAILY finasteride 5 mg tablet 5 mg PO DAILY Patient Comments: TAKE ONE TABLET BY MOUTH ONCE DAILY alfuzosin 10 mg tablet extended release 24 hr 10 mg PO DAILY Patient Comments: TAKE ONE TABLET BY MOUTH EVERY DAY mesalamine 0.375 gram capsule,extended release 24hr 0.375 g PO DAILY Patient Comments: Take 4 capsules every day by oral route as directed for 90 days. Jardiance 25 mg tablet 25 mg PO DAILY Patient Comments: Take 1 tablet every day by oral route. Ozempic 0.25 mg or 0.5 mg (2 mg/3 mL) pen injector 0.25 mg SQ WEEKLY Patient Comments: INJECT 0.25 MG WEEKLY SUBCUTANEOUSLY FOR 30 DAYS azithromycin [Zithromax Z-Dangelo] 250 mg tablet See Rx Instructions .ROUTE .COMPLEX 5 Days Qty: 6 0RF Rx Instructions: For 250 mg dose pack: take 500 mg today (day 1), then 250 mg for 4 days (days 2-5) benzonatate 100 mg capsule 100 mg PO TID PRN (Reason: cough) Qty: 30 0RF guaifenesin [Mucinex] 600 mg tablet extended release 12hr 600 mg PO BID PRN (Reason: cough) Qty: 20 0RF ondansetron 4 mg tablet,disintegrating 4 mg PO Q8H PRN (Reason: nausea and vomiting) Qty: 10 0RF Referrals Follow up/Referrals: Consuelo Segundo APRN [Primary Care Provider] - See instructions Activity Restrictions/Add. Instructions Additional Instructions/Restrictions: Place erythromycin ointment on lower eyelid and blink into place 4 times a day until you start your drops for upcoming cataract surgery. Avoid placing ointment prior to driving because can make your vision blurry.Wash eyelids with warm baby soap and water twice a day and use warm compresses to help stye heal. Clinical Impressions Clinical Impression: Stye Print Language Print Language: Kazakh Discharge ED Provider: Nilsa Schmidt General Adult HPI General Chief complaint: Eye Problems Stated complaint: feels like something is in/pain right eye Time Seen by Provider: 07/07/24 07:48 History of Present Illness HPI narrative: Patient is a 64-year-old with past medical history significant for hypertension and diabetes presents to the emergency department for irritation of right eye. Irritation has been present for the last 3 days. No trauma exposure to chemicals or irritants that patient can identify. No pain or significant visual changes. No photo phobia. Patient does not wear contacts and only wears gl asses. Is scheduled for cataract surgery later this week. Related Data Home Medications ?Medication ?Instructions ?Recorded ?Confirmed alfuzosin 10 mg tablet,extended 10 mg PO DAILY 05/29/24 05/29/24 release 24 hr amlodipine 5 mg tablet 5 mg PO DAILY 05/29/24 05/29/24 atorvastatin 20 mg tablet 20 mg PO DAILY 05/29/24 05/29/24 empagliflozin 25 mg tablet 25 mg PO DAILY 05/29/24 05/29/24 (Jardiance) esomeprazole magnesium 40 mg 40 mg PO BID 05/29/24 05/29/24 capsule,delayed release finasteride 5 mg tablet 5 mg PO DAILY 05/29/24 05/29/24 gabapentin 600 mg tablet 600 mg PO TID 05/29/24 05/29/24 mesalamine 0.375 gram 0.375 g PO DAILY 05/29/24 05/29/24 capsule,extended release 24 hr ropinirole 2 mg tablet 2 mg PO HS 05/29/24 05/29/24 semaglutide 0.25 mg or 0.5 mg (2 0.25 mg SQ WEEKLY 05/29/24 05/29/24 mg/3 mL) subcutaneous pen injector (Ozempic) Previous Rx's ?Medication ?Instructions ?Recorded azithromycin 250 mg tablet See Rx Instructions PO .COMPLEX 5 05/29/24 (Zithromax Z-Dangelo) days #6 tabs benzonatate 100 mg capsule 100 mg PO TID PRN cough #30 caps 05/29/24 guaifenesin 600 mg tablet, 600 mg PO BID PRN cough #20 tabs 05/29/24 extended release 12 hr (Mucinex) ondansetron 4 mg disintegrating 4 mg PO Q8H PRN nausea and 05/29/24 tablet vomiting #10 tabs Allergies Allergy/AdvReac Type Severity Reaction Status Date / Time prednisone Allergy Mild Verified 08/11/23 16:36 levofloxacin (From Levaquin) Allergy Verified 08/11/23 16:36 lithium Allergy Verified 08/11/23 16:36 metronidazole (From Flagyl) Allergy Verified 08/11/23 16:36 mometasone furoate (From Allergy Verified 08/11/23 16:36 Asmanex Twisthaler) montelukast (From Singulair) Allergy Verified 08/11/23 16:36 PFSH PFS Disclaimer: The information contained in this section may have been updated after the patient was seen, as this information can be updated by other users. Medical History (Updated 07/07/24 @ 08:05 by Nilsa Schmidt MD) GERD (gastroesophageal reflux disease) Depression Anxiety Diabetes mellitus, type 2 Hyperlipidemia Hypertension Surgical History (Updated 05/29/24 @ 17:54 by Ashley King RN) History of cholecystectomy History of hip replacement Family History (Updated 01/04/23 @ 09:33 by MONCHO Hale) Brother Asthma Hypertension Mother Cancer Hypertension Sister Diabetes Hypertension Brother Diabetes Hypertension Grandfather Tuberculosis Social History (Updated 01/04/23 @ 09:35 by MONCHO Hale) Smoking Status: Never smoker second hand exposure: No alcohol intake: never substance use type: denies use current occupational status: unemployed lives independently: No marital status: ROS Obtained: Yes All systems reviewed & no additional complaints except as documented Physical Exam General General appearance: alert and in no apparent distress Head Head exam: atraumatic Eye Eye exam: Present other (right eye: hordeolum right upper internal eyelid without erythema, fluorescein exam without corneal defect, no conjunctivitis, no chemosis, visual acuity intact, normal pupil, no periorbital swelling) ENT ENT exam: Present normal exam and normal oropharynx Neck Neck exam: Present normal inspection Chest Chest inspection: Present normal inspection Respiratory Respiratory exam: Absent respiratory distress Cardiovascular Cardiovascular exam: Present regular rate and normal rhythm Abdominal Exam Abdominal exam: Present soft; Absent distention Neurological Exam Neurological exam: Present alert and oriented X3; Absent motor sensory deficit Medical Decision Making Medical Records Screening: Per USPSTF and CDC recommendations, given the prevalence of disease in our region, it is our hospital?s policy to screen for HIV and viral Hepatitis for all patients aged 18 and over and those with ongoing risk factors. Jeet Inquiry Pt receiving controlled substance: No Vital Signs: 07/07/24 07:46 Temperature 97.9 F Temperature Source Oral Pulse Rate [Radial] 71 Respiratory Rate 16 Blood Pressure [Right Arm] 117/73 Blood Pressure Mean [Right Arm] 87 Blood Pressure Source [Right Arm] Automatic Cuff Blood Pressure Position [Right Arm] Sitting 02 Sat by Pulse Oximetry 97 Oxygen Delivery Method Room Air Orders (Tests/Meds): ORDERS Category Date Time Status HIV (1&2) Antibody Rapid Stat Lab 07/07/24 07:53 Ordered Hep C Ab with Reflex to RNA Stat Lab 07/07/24 07:53 Ordered Medical Decision Narrative: In summary, this 64-year-old male presents to the emergency department today with right eye irritation. On initial evaluation patient is hemodynamically stable saturating appropriately on room air afebrile no acute distress. Differential diagnosis includes but is not limited to hordeolum Chalazion, foreign body corneal abrasion corneal ulcer blepharitis. History, Fluorescein light exam and eye exam most consistent with hordeolum. No further workup indicated at this time. Patient was provided with erythromycin for comfort and educated on eye hygiene including using baby soap for exfoliation of eyelids and warm compresses. 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 On reassessment patient has alleviation of symptoms after tetracaine drops required for exam. Amenable to discharge with strict return precautions. Of note, social determinants of health include inability to see healthcare provider in timely manner. Critical Care Critical Care Time Critical Care Time: No
[2024-07-07 08:09] VITALS: BP 115/75; PULSE 70; RESP 18; TEMP 36.6; O2SAT 97
== END 2024-07-07 08:11 | disposition home or self-care (01) ==
PROVIDERS: Emergency Provider Student in an Organized Health Care Education/Training Program; PCP Nurse Practitioner
DX: H00.019 Hordeolum externum unspecified eye, unspecified eyelid (principal); H57.11 Ocular pain, right eye
CPT/HCPCS: 99282

== ENCOUNTER 2024-07-13 05:13 | Emergency (ER) | payer MEDICARE, MEDICAID, SELFPAY ==
[2024-07-13] VITALS (15 sets, daily range): BP systolic 117–150; BP diastolic 72–84; PULSE 50–87; RESP 18; TEMP 36.6–36.7; O2SAT 94–98; BMI 30.7
--- NOTE | 2024-07-13 05:26 | CT_ITS ---
FINAL REPORT CLINICAL HISTORY: L flank, LLQ pain, hx stones FINDINGS: CT OF THE ABDOMEN AND PELVIS WITH CONTRAST Axial CT images of the abdomen and pelvis were obtained after the administration of oral and iv contrast. Coronal reformatted images were also obtained and reviewed. This study was performed with techniques to keep radiation doses as low as reasonably achievable (ALARA). Individualized dose reduction techniques using automated exposure control or adjustment of mA and/or kV according to the patient's size were employed. Abdomen: There is mild bibasilar atelectasis. There is mild fatty infiltration of the liver. A small cyst is seen in the left liver dome. The patient is status postcholecystectomy. The spleen is unremarkable. No adrenal mass is present. The pancreas has an unremarkable appearance. There is a right renal cyst measuring 42 mm. There is mild left hydronephrosis and hydroureter secondary to a 5 mm distal left ureteral stone at the level of the mid pelvis. The aorta is normal in caliber. There is no free fluid or adenopathy. No mass or abnormal fluid collection is seen. Pelvis: The patient is status post right hip arthroplasty. The appendix normal. The urinary bladder is unremarkable. No inflammatory process is seen. There is no evidence of mass or adenopathy. There is no evidence of bowel obstruction. IMPRESSION: Mild left hydronephrosis and hydroureter secondary to a 5 mm distal left ureteral stone. Reviewed, Interpreted and Dictated by Romeo Edge III, MD Transcribed by Lisette Son Authenticated and [facility]
[2024-07-13] MEDS: LACTATED RINGERS 1000ML 1,000 ML 999 ML IV (05:28)
[2024-07-13] MEDS: MORPHINE 4MG/ML SYRINGE 4 MG IV ×3 (05:28→10:35)
[2024-07-13] MEDS: ONDANSETRON 4MG/2ML VIAL 4 MG IV (05:28)
--- NOTE | 2024-07-13 05:28 | ED_ITS ---
Discharge Plan Disposition Patient Disposition: Home, Self-Care Condition: Good Prescriptions Prescriptions: New tamsulosin [Flomax] 0.4 mg capsule 0.4 mg PO DAILY 14 Days Qty: 14 0RF ketorolac 10 mg tablet 10 mg PO Q8H PRN (Reason: pain) 5 Days Qty: 15 0RF oxycodone 5 mg tablet 5 mg PO Q8H PRN (Reason: pain) 3 Days Qty: 9 0RF No Action gabapentin 600 mg tablet 600 mg PO TID Patient Comments: TAKE ONE TABLET BY MOUTH THREE TIMES DAILY atorvastatin 20 mg tablet 20 mg PO DAILY Patient Comments: TAKE ONE TABLET BY MOUTH DAILY amlodipine 5 mg tablet 5 mg PO DAILY Patient Comments: TAKE ONE TABLET BY MOUTH DAILY ropinirole 2 mg tablet 2 mg PO HS Patient Comments: TAKE ONE TABLET BY MOUTH NIGHTLY AT BEDTIME esomeprazole magnesium 40 mg capsule,delayed release(DR/EC) 40 mg PO BID Patient Comments: TAKE ONE CAPSULE BY MOUTH TWICE DAILY finasteride 5 mg tablet 5 mg PO DAILY Patient Comments: TAKE ONE TABLET BY MOUTH ONCE DAILY alfuzosin 10 mg tablet extended release 24 hr 10 mg PO DAILY Patient Comments: TAKE ONE TABLET BY MOUTH EVERY DAY mesalamine 0.375 gram capsule,extended release 24hr 0.375 g PO DAILY Patient Comments: Take 4 capsules every day by oral route as directed for 90 days. Jardiance 25 mg tablet 25 mg PO DAILY Patient Comments: Take 1 tablet every day by oral route. Ozempic 0.25 mg or 0.5 mg (2 mg/3 mL) pen injector 0.25 mg SQ WEEKLY Patient Comments: INJECT 0.25 MG WEEKLY SUBCUTANEOUSLY FOR 30 DAYS azithromycin [Zithromax Z-Dangelo] 250 mg tablet See Rx Instructions .ROUTE .COMPLEX 5 Days Qty: 6 0RF Rx Instructions: For 250 mg dose pack: take 500 mg today (day 1), then 250 mg for 4 days (days 2-5) benzonatate 100 mg capsule 100 mg PO TID PRN (Reason: cough) Qty: 30 0RF guaifenesin [Mucinex] 600 mg tablet extended release 12hr 600 mg PO BID PRN (Reason: cough) Qty: 20 0RF ondansetron 4 mg tablet,disintegrating 4 mg PO Q8H PRN (Reason: nausea and vomiting) Qty: 10 0RF Referrals Follow up/Referrals: Randy Macdonald MD [Referring] - See instructions Consuelo Segundo APRN [Primary Care Provider] - See instructions Activity Restrictions/Add. Instructions Additional Instructions/Restrictions: Please follow-up with urology this coming Tuesday, your appointment is scheduled for . Should your symptoms worsen please return to ED. Clinical Impressions Clinical Impression: Left flank pain, Kidney stone on left side Instructions Patient Instructions: DI for Acute Abdominal Pain Print Language Print Language: Amharic Discharge ED Provider: Alo Alexander General Adult HPI <Errol Thomas MD - Last Filed: 07/13/24 06:42> General Chief complaint: Abdominal Pain Stated complaint: kidney stone Time Seen by Provider: 07/13/24 05:23 Mode of Arrival: Ambulatory Source of Information: Patient Limitations: No Limitations Description of Symptoms (Recalled from ER Triage Doc. by RN): Patient reports to ED with left side abd pain and vomiting that started 2-3 days ago. Patient has hx of kidney stones. History of Present Illness HPI narrative: 64-year-old male with history of hypertension, diabetes on Jardiance, cataract removal in the right eye yesterday presents to the ER for complaints of left flank and left lower quadrant abdominal pain that started 2 to 3 days ago but acutely worsened around 1 AM today. He states the pain worsened and then he started vomiting around 4:30 AM, approximately 40 minutes prior to arrival. He states he has not taken anything for the pain. He reports no dysuria or hematuria and states he is still passing urine. He has a history of kidney stones and states the last time he had to have a procedure for 1 was approximately [address] Patel out of [place]. Patient has not seen a urologist since that time. He states he tolerated the cataract procedure well and is having no pain or concerns with the right eye. Related Data Home Medications ?Medication ?Instructions ?Recorded ?Confirmed alfuzosin 10 mg tablet,extended 10 mg PO DAILY 05/29/24 05/29/24 release 24 hr amlodipine 5 mg tablet 5 mg PO DAILY 05/29/24 05/29/24 atorvastatin 20 mg tablet 20 mg PO DAILY 05/29/24 05/29/24 empagliflozin 25 mg tablet 25 mg PO DAILY 05/29/24 05/29/24 (Jardiance) esomeprazole magnesium 40 mg 40 mg PO BID 05/29/24 05/29/24 capsule,delayed release finasteride 5 mg tablet 5 mg PO DAILY 05/29/24 05/29/24 gabapentin 600 mg tablet 600 mg PO TID 05/29/24 05/29/24 mesalamine 0.375 gram 0.375 g PO DAILY 05/29/24 05/29/24 capsule,extended release 24 hr ropinirole 2 mg tablet 2 mg PO HS 05/29/24 05/29/24 semaglutide 0.25 mg or 0.5 mg (2 0.25 mg SQ WEEKLY 05/29/24 05/29/24 mg/3 mL) subcutaneous pen injector (Ozempic) Previous Rx's ?Medication ?Instructions ?Recorded azithromycin 250 mg tablet See Rx Instructions PO .COMPLEX 5 05/29/24 (Zithromax Z-Dangelo) days #6 tabs benzonatate 100 mg capsule 100 mg PO TID PRN cough #30 caps 05/29/24 guaifenesin 600 mg tablet, 600 mg PO BID PRN cough #20 tabs 05/29/24 extended release 12 hr (Mucinex) ondansetron 4 mg disintegrating 4 mg PO Q8H PRN nausea and 05/29/24 tablet vomiting #10 tabs ketorolac 10 mg tablet 10 mg PO Q8H PRN pain 5 days #15 07/13/24 tabs oxycodone 5 mg tablet 5 mg PO Q8H PRN pain 3 days #9 tabs 07/13/24 tamsulosin 0.4 mg capsule (Flomax) 0.4 mg PO DAILY 14 days #14 caps 07/13/24 Allergies Allergy/AdvReac Type Severity Reaction Status Date / Time prednisone Allergy Mild Verified 08/11/23 16:36 levofloxacin (From Levaquin) Allergy Verified 08/11/23 16:36 lithium Allergy Verified 08/11/23 16:36 metronidazole (From Flagyl) Allergy Verified 08/11/23 16:36 mometasone furoate (From Allergy Verified 08/11/23 16:36 Asmanex Twisthaler) montelukast (From Singulair) Allergy Verified 08/11/23 16:36 PFSH <Errol Thomas MD - Last Filed: 07/13/24 06:42> [facility] Disclaimer: The information contained in this section may have been updated after the patient was seen, as this information can be updated by other users. Medical History (Updated 07/13/24 @ 10:25 by Alo Alexander DO) GERD (gastroesophageal reflux disease) Depression Anxiety Diabetes mellitus, type 2 Hyperlipidemia Hypertension Surgical History (Updated 05/29/24 @ 17:54 by Ashley King RN) History of cholecystectomy History of hip replacement Family History (Updated 01/04/23 @ 09:33 by MONCHO Hale) Brother Asthma Hypertension Mother Cancer Hypertension Sister Diabetes Hypertension Brother Diabetes Hypertension Grandfather Tuberculosis Social History (Updated 01/04/23 @ 09:35 by MONCHO Hale) Smoking Status: Never smoker second hand exposure: No alcohol intake: never substance use type: denies use current occupational status: unemployed Travel in the last 8 weeks: None lives independently: No marital status: <Errol Thomas MD - Last Filed: 07/13/24 06:42> ROS Obtained: Yes Systems reviewed as appropriate & no additional complaints except as documented Per HPI Physical Exam <Errol Thomas MD - Last Filed: 07/13/24 06:42> General General appearance: alert and in no apparent distress Head Head exam: atraumatic and normocephalic Eye Eye exam: Present other (Normal-appearing left eye, right eye covered by a patch that patient states she is not supposed to taken off until later today.) ENT ENT exam: Present mucous membranes moist Neck Neck exam: Present normal inspection and full ROM Chest Chest inspection: Present symmetric chest wall rise Respiratory Respiratory exam: Present normal lung sounds bilaterally; Absent respiratory distress, wheezes or stridor Cardiovascular Cardiovascular exam: Present regular rate and normal rhythm Abdominal Exam Abdominal exam: Present soft and tenderness (Left lower quadrant); Absent distention, guarding, rebound or rigidity Extremities Exam Extremities exam: Present full ROM Back Exam Back exam: Present full ROM and CVA tenderness (L); Absent CVA tenderness (R) or vertebral tenderness Neurological Exam Neurological exam: Present alert, oriented X3 and normal gait; Absent motor sensory deficit Psychiatric Psychiatric exam: Present normal affect and normal mood Skin Skin exam: Present warm and dry Medical Decision Making <Errol Thomas MD - Last Filed: 07/13/24 06:42> Medical Records Medical records reviewed: Yes I reviewed the patient's medical records. Screening: Per USPSTF and CDC recommendations, given the prevalence of disease in our region, it is our hospital?s policy to screen for HIV and viral Hepatitis for all patients aged 18 and over and those with ongoing risk factors. MR Comment: Last time patient was seen in our system for urinary complaints was in March 2023 when patient was evaluated in the [facility] and diagnosed with UTI sent home on Bactrim and Pyridium Jeet Inquiry Pt receiving controlled substance: No Vital Signs: 07/13/24 05:14 07/13/24 05:18 07/13/24 05:30 Temperature 97.8 F Temperature Source Oral Pulse Rate 64 65 Pulse Rate [Right Brachial] 50 L Respiratory Rate 18 Blood Pressure 145/82 H 150/82 H Blood Pressure [Right Arm] 145/82 H Blood Pressure Mean 103 104 Blood Pressure Mean [Right Arm] 103 Blood Pressure Source [Right Arm] Automatic Cuff Blood Pressure Position [Right Arm] Supine 02 Sat by Pulse Oximetry 98 98 97 Oxygen Delivery Method Room Air Room Air Room Air 07/13/24 06:01 07/13/24 07:00 07/13/24 07:30 Temperature Temperature Source Pulse Rate 58 L 60 61 Pulse Rate [Right Brachial] Respiratory Rate Blood Pressure 129/72 126/74 130/80 Blood Pressure [Right Arm] Blood Pressure Mean 96 Blood Pressure Mean [Right Arm] Blood Pressure Source [Right Arm] Blood Pressure Position [Right Arm] 02 Sat by Pulse Oximetry 98 95 95 Oxygen Delivery Method Room Air Room Air Room Air 07/13/24 07:45 07/13/24 08:00 07/13/24 08:15 Temperature Temperature Source Pulse Rate 59 L 57 L 54 L Pulse Rate [Right Brachial] Respiratory Rate Blood Pressure 130/78 Blood Pressure [Right Arm] Blood Pressure Mean Blood Pressure Mean [Right Arm] Blood Pressure Source [Right Arm] Blood Pressure Position [Right Arm] 02 Sat by Pulse Oximetry 95 96 95 Oxygen Delivery Method 07/13/24 08:30 07/13/24 08:45 07/13/24 09:00 Temperature Temperature Source Pulse Rate 65 59 L 57 L Pulse Rate [Right Brachial] Respiratory Rate Blood Pressure 133/84 127/77 Blood Pressure [Right Arm] Blood Pressure Mean Blood Pressure Mean [Right Arm] Blood Pressure Source [Right Arm] Blood Pressure Position [Right Arm] 02 Sat by Pulse Oximetry 96 94 L 95 Oxygen Delivery Method 07/13/24 09:30 07/13/24 10:00 Temperature Temperature Source Pulse Rate 62 53 L Pulse Rate [Right Brachial] Respiratory Rate Blood Pressure 130/83 130/77 Blood Pressure [Right Arm] Blood Pressure Mean 96 Blood Pressure Mean [Right Arm] Blood Pressure Source [Right Arm] Blood Pressure Position [Right Arm] 02 Sat by Pulse Oximetry 95 95 Oxygen Delivery Method Lab Data Lab Results 07/13/24 05:27: Urine Color Yellow, Urine Appearance Clear, Urine pH 5.5, Ur Specific [place] >= 1.030, Urine Protein Negative, Urine Glucose (UA) 3+, Urine Ketones Negative, Urine Blood 3+ A, Urine Nitrate Negative, Urine Bilirubin Negative, Urine Urobilinogen 0.2, Ur Leukocyte Esterase Negative, Urine RBC 20- 50, Urine WBC Occasional, Ur Squamous Epith Cells 3-5, Calcium Oxalate Crystal 2+, Urine Bacteria Trace 07/13/24 05:30: WBC 6.3, RBC 5.17, Hgb 16.3, Hct 48.2, MCV 93.2, MCH 31.6 H, MCHC 33.9, RDW 14.4, Plt Count 301, MPV 7.7, Neut % (Auto) 57.5, Lymph % (Auto) 30.2, [place] % (Auto) 7.9, Eos % (Auto) 3.3, Baso % (Auto) 1.1, Neut # (Auto) 3.6, Lymph # (Auto) 1.9, [place] # (Auto) 0.5, Eos # (Auto) 0.2, Baso # (Auto) 0.1, PT 11.3, INR 1.01, Lactate 1.3 07/13/24 05:52: Sodium 136, Potassium 3.4 L, Chloride 105, Carbon Dioxide 24, Anion Gap 10.4, BUN 17, Creatinine 1.10, Estimated Creat Clear 83, Estimated GFR 67, Est GFR ( Amer) 82, Glucose 174 H, Calcium 8.9, Total Bilirubin 0.7, AST 30, ALT 28, Alkaline Phosphatase 102, Total Protein 6.5, Albumin 3.9, Globulin 2.6, Albumin/Globulin Ratio 1.5 07/13/24 05:30 07/13/24 05:52 Orders (Tests/Meds): ED MEDICATIONS Discontinued Medications Generic Name Dose Route Start Last Admin Trade Name Freq PRN Reason Stop Dose Admin Lactated Ringer's 1,000 mls @ 999 mls/hr 07/13/24 05:23 07/13/24 05:28 Lactated Ringer's 1000 Ml Bag IV 07/13/24 06:23 999 mls/hr .Q1H1M ONE Administration Iopamidol 75 ml 07/13/24 07:23 07/13/24 07:23 Iopamidol-370 (76%);100ml Bottle IV 07/13/24 07:24 75 ml ONCE ONE Administration Ketorolac Tromethamine 30 mg 07/13/24 05:23 07/13/24 05:29 Ketorolac 30mg/Ml Vial IV 07/13/24 05:24 30 mg ONCE ONE Administration Morphine Sulfate 4 mg 07/13/24 05:23 07/13/24 05:28 Morphine 4mg/Ml Syringe IV 07/13/24 05:24 4 mg ONCE ONE Administration Morphine Sulfate 4 mg 07/13/24 07:57 07/13/24 08:14 Morphine 4mg/Ml Syringe IV 07/13/24 07:58 4 mg ONCE ONE Administration Ondansetron HCl 4 mg 07/13/24 05:23 07/13/24 05:28 Ondansetron 4mg/2ml Vial IV 07/13/24 05:24 4 mg ONCE ONE Administration Sodium Chloride 10 ml 07/13/24 07:23 07/13/24 07:23 Sodium Chloride 0.9% 10ml Syr (Rad Only) IV 07/13/24 07:24 10 ml ONCE ONE Administration ORDERS Category Date Time Status CT abdomen pelvis w con Stat Cat Scan 07/13/24 05:26 Completed CBC w/Auto Diff [Complete Blood Count Auto Diff] Stat Lab 07/13/24 05:30 Completed CMP [Comprehensive Metabolic Panel] Stat Lab 07/13/24 05:52 Completed HIV (1&2) Antibody Rapid Stat Lab 07/13/24 05:30 Received Hep C Ab with Reflex to RNA Stat Lab 07/13/24 05:30 Received Lactic Acid Stat Lab 07/13/24 05:30 Completed PT INR [Prothrombin Time INR] Stat Lab 07/13/24 05:30 Completed Urinalysis and Microscopic Stat Lab 07/13/24 05:27 Completed Medical Decision Narrative: In summary, this 64-year-old male with comorbidities described in HPI presents to the emergency department today with left lower quadrant and left flank pain, concern for kidney stone. On initial evaluation patient is hemodynamically stable, afebrile, physical exam is most notable for left CVA tenderness and left lower quadrant tenderness without rebound or guarding. Differential diagnosis includes but is not limited to UTI, pyelonephritis, nephrolithiasis, ureterolithiasis, hydronephrosis, hydroureter, electrolyte abnormality, dehydration, kidney dysfunction, also considered the possibility of intra- abdominal pathology such as colitis, diverticulitis, though I have lower suspicion for these. Based on these concerns, I ordered serum labs, urine studies, CT imaging. Patient received Toradol, morphine, Zofran, IV fluid for treatment. Labs personally reviewed demonstrate RBC and calcium oxalate crystals, nitrite negative, only occasional WBCs, no findings of infection but UA is concerning for stone. CBC unremarkable, nonactionable, CMP nonactionable, reassuring kidney function. Lactic normal at 1.8. On reassessment patient has had significant improvement of symptoms, he is resting more comfortably at this time. CT abdomen pelvis pending at the time of physician handoff. Patient handed off to Dr. Alexander at physician shift change for further management and disposition. <Alo Alexander, DO - Last Filed: 07/13/24 10:31> Vital Signs: 07/13/24 05:14 07/13/24 05:18 07/13/24 05:30 Temperature 97.8 F Temperature Source Oral Pulse Rate 64 65 Pulse Rate [Right Brachial] 50 L Respiratory Rate 18 Blood Pressure 145/82 H 150/82 H Blood Pressure [Right Arm] 145/82 H Blood Pressure Mean 103 104 Blood Pressure Mean [Right Arm] 103 Blood Pressure Source [Right Arm] Automatic Cuff Blood Pressure Position [Right Arm] Supine 02 Sat by Pulse Oximetry 98 98 97 Oxygen Delivery Method Room Air Room Air Room Air 07/13/24 06:01 07/13/24 07:00 07/13/24 07:30 Temperature Temperature Source Pulse Rate 58 L 60 61 Pulse Rate [Right Brachial] Respiratory Rate Blood Pressure 129/72 126/74 130/80 Blood Pressure [Right Arm] Blood Pressure Mean 96 Blood Pressure Mean [Right Arm] Blood Pressure Source [Right Arm] Blood Pressure Position [Right Arm] 02 Sat by Pulse Oximetry 98 95 95 Oxygen Delivery Method Room Air Room Air Room Air 07/13/24 07:45 07/13/24 08:00 07/13/24 08:15 Temperature Temperature Source Pulse Rate 59 L 57 L 54 L Pulse Rate [Right Brachial] Respiratory Rate Blood Pressure 130/78 Blood Pressure [Right Arm] Blood Pressure Mean Blood Pressure Mean [Right Arm] Blood Pressure Source [Right Arm] Blood Pressure Position [Right Arm] 02 Sat by Pulse Oximetry 95 96 95 Oxygen Delivery Method 07/13/24 08:30 07/13/24 08:45 07/13/24 09:00 Temperature Temperature Source Pulse Rate 65 59 L 57 L Pulse Rate [Right Brachial] Respiratory Rate Blood Pressure 133/84 127/77 Blood Pressure [Right Arm] Blood Pressure Mean Blood Pressure Mean [Right Arm] Blood Pressure Source [Right Arm] Blood Pressure Position [Right Arm] 02 Sat by Pulse Oximetry 96 94 L 95 Oxygen Delivery Method 07/13/24 09:30 07/13/24 10:00 Temperature Temperature Source Pulse Rate 62 53 L Pulse Rate [Right Brachial] Respiratory Rate Blood Pressure 130/83 130/77 Blood Pressure [Right Arm] Blood Pressure Mean 96 Blood Pressure Mean [Right Arm] Blood Pressure Source [Right Arm] Blood Pressure Position [Right Arm] 02 Sat by Pulse Oximetry 95 95 Oxygen Delivery Method Lab Data Lab Results 07/13/24 05:27: Urine Color Yellow, Urine Appearance Clear, Urine pH 5.5, Ur Specific [place] >= 1.030, Urine Protein Negative, Urine Glucose (UA) 3+, Urine Ketones Negative, Urine Blood 3+ A, Urine Nitrate Negative, Urine Bilirubin Negative, Urine Urobilinogen 0.2, Ur Leukocyte Esterase Negative, Urine RBC 20- 50, Urine WBC Occasional, Ur Squamous Epith Cells 3-5, Calcium Oxalate Crystal 2+, Urine Bacteria Trace 07/13/24 05:30: WBC 6.3, RBC 5.17, Hgb 16.3, Hct 48.2, MCV 93.2, MCH 31.6 H, MCHC 33.9, RDW 14.4, Plt Count 301, MPV 7.7, Neut % (Auto) 57.5, Lymph % (Auto) 30.2, [place] % (Auto) 7.9, Eos % (Auto) 3.3, Baso % (Auto) 1.1, Neut # (Auto) 3.6, Lymph # (Auto) 1.9, [place] # (Auto) 0.5, Eos # (Auto) 0.2, Baso # (Auto) 0.1, PT 11.3, INR 1.01, Lactate 1.3 07/13/24 05:52: Sodium 136, Potassium 3.4 L, Chloride 105, Carbon Dioxide 24, Anion Gap 10.4, BUN 17, Creatinine 1.10, Estimated Creat Clear 83, Estimated GFR 67, Est GFR ( Amer) 82, Glucose 174 H, Calcium 8.9, Total Bilirubin 0.7, AST 30, ALT 28, Alkaline Phosphatase 102, Total Protein 6.5, Albumin 3.9, Globulin 2.6, Albumin/Globulin Ratio 1.5 Orders (Tests/Meds): ED MEDICATIONS Discontinued Medications Generic Name Dose Route Start Last Admin Trade Name Freq PRN Reason Stop Dose Admin Lactated Ringer's 1,000 mls @ 999 mls/hr 07/13/24 05:23 07/13/24 05:28 Lactated Ringer's 1000 Ml Bag IV 07/13/24 06:23 999 mls/hr .Q1H1M ONE Administration Iopamidol 75 ml 07/13/24 07:23 07/13/24 07:23 Iopamidol-370 (76%);100ml Bottle IV 07/13/24 07:24 75 ml ONCE ONE Administration Ketorolac Tromethamine 30 mg 07/13/24 05:23 07/13/24 05:29 Ketorolac 30mg/Ml Vial IV 07/13/24 05:24 30 mg ONCE ONE Administration Morphine Sulfate 4 mg 07/13/24 05:23 07/13/24 05:28 Morphine 4mg/Ml Syringe IV 07/13/24 05:24 4 mg ONCE ONE Administration Morphine Sulfate 4 mg 07/13/24 07:57 07/13/24 08:14 Morphine 4mg/Ml Syringe IV 07/13/24 07:58 4 mg ONCE ONE Administration Ondansetron HCl 4 mg 07/13/24 05:23 07/13/24 05:28 Ondansetron 4mg/2ml Vial IV 07/13/24 05:24 4 mg ONCE ONE Administration Sodium Chloride 10 ml 07/13/24 07:23 07/13/24 07:23 Sodium Chloride 0.9% 10ml Syr (Rad Only) IV 07/13/24 07:24 10 ml ONCE ONE Administration ORDERS Category Date Time Status CT abdomen pelvis w con Stat Cat Scan 07/13/24 05:26 Completed CBC w/Auto Diff [Complete Blood Count Auto Diff] Stat Lab 07/13/24 05:30 Completed CMP [Comprehensive Metabolic Panel] Stat Lab 07/13/24 05:52 Completed HIV (1&2) Antibody Rapid Stat Lab 07/13/24 05:30 Received Hep C Ab with Reflex to RNA Stat Lab 07/13/24 05:30 Received Lactic Acid Stat Lab 07/13/24 05:30 Completed PT INR [Prothrombin Time INR] Stat Lab 07/13/24 05:30 Completed Urinalysis and Microscopic Stat Lab 07/13/24 05:27 Completed Medical Decision Narrative: In summary, this 64-year-old male with comorbidities described in HPI presents to the emergency department today with left lower quadrant and left flank pain, concern for kidney stone. On initial evaluation patient is hemodynamically stable, afebrile, physical exam is most notable for left CVA tenderness and left lower quadrant tenderness without rebound or guarding. Differential diagnosis includes but is not limited to UTI, pyelonephritis, nephrolithiasis, ureterolithiasis, hydronephrosis, hydroureter, electrolyte abnormality, dehydration, kidney dysfunction, also considered the possibility of intra- abdominal pathology such as colitis, diverticulitis, though I have lower suspicion for these. Based on these concerns, I ordered serum labs, urine studies, CT imaging. Patient received Toradol, morphine, Zofran, IV fluid for treatment. Labs personally reviewed demonstrate RBC and calcium oxalate crystals, nitrite negative, only occasional WBCs, no findings of infection but UA is concerning for stone. CBC unremarkable, nonactionable, CMP nonactionable, reassuring kidney function. Lactic normal at 1.8. On reassessment patient has had significant improvement of symptoms, he is resting more comfortably at this time. CT abdomen pelvis pending at the time of physician handoff. Patient handed off to Dr. Alexander at physician shift change for further management and disposition. On my assumption of care patient hemodynamically stable. CT imaging reviewed, significant for 5 mm kidney stone left ureter distally. Mild left hydronephrosis. Discussed patient with Dr. Randy Simental office in [place] for urology follow-up. Patient to follow-up Tuesday. Prescribing Flomax and pain medication. Patient agreeable with this plan. Given strict instructions to return to ED if symptoms worsen. Medically clear for discharge at this time. Discharged home with hemodynamically stable vitals. Critical Care <Errol Thomas MD - Last Filed: 07/13/24 06:42> Critical Care Time Critical Care Time: No
[2024-07-13] MEDS: KETOROLAC 30MG/ML VIAL 30 MG IV (05:29)
[2024-07-13 05:30] LABS: Microscopic, Urine URINE MICROSCOPIC (MICROSCOPIC)
[2024-07-13 05:39] LABS: Appearance,Urine CLEAR (Clear); Bilirubin,Urine Negative (Negative); Blood, Urine 3+ (Negative); Color,Urine YELLOW (Yellow); Glucose,Urine (UA) 3+ (Negative); Ketones,Urine Negative (Negative); Leukocyte Esterase,Urine Negative (Negative); Nitrate,Urine Negative (Negative); PH,Urine 5.5 (5.0-8.5); Protein,Urine Negative (Negative); Specific Gravity, Urine >= 1.030 (1.005-1.030); Urobilinogen,Urine 0.2 EU/dl (0.2)
[2024-07-13 05:45] LABS: Basophils # 0.1 K/mm3 (0-0.2); Basophils % 1.1 % (0.1-2.0); Eosinophils # 0.2 K/mm3 (0.0-0.4); Eosinophils % 3.3 % (0.1-12.0); Hematocrit 48.2 % (42.0-52.0); Hemoglobin 16.3 g/dL (14.1-18.0); Lymphocytes # 1.9 K/mm3 (0.7-4.5); Lymphocytes % 30.2 % (10-50); Mean Corpuscular HGB Conc 33.9 g/dL (31.8-35.4); Mean Corpuscular Hemoglobin 31.6 pg (27.0-31.2); Mean Corpuscular Volume 93.2 fl (80-94); Mean Platelet Volume 7.7 fl (7.4-10.4); Monocytes # 0.5 K/mm3 (0.1-1.0); Monocytes % 7.9 % (1.7-9.3); Neutrophils # 3.6 K/mm3 (1.8-7.8); Neutrophils % 57.5 % (37.0-80.0); Platelet Count 301 K/mm3 (142-424); Red Blood Count 5.17 M/mm3 (4.60-6.20); Red Cell Distribution Width 14.4 % (11.5-17.5); White Blood Count 6.3 K/mm3 (4.8-10.8)
[2024-07-13 05:49] LABS: RBC,Urine 20-50 #/hpf (0-3); WBC,Urine Occasional #/hpf (0-3)
[2024-07-13 05:50] LABS: INR 1.01 (0.9-1.1); Prothrombin Time 11.3 seconds (10.1-12.5)
[2024-07-13 05:50] LABS: Bacteria,Urine Trace /lpf; Calcium Oxalate Crystals,Urine 2+ /lpf
[2024-07-13 05:54] LABS: Lactic Acid 1.3 mmol/L (0.7-2.1)
[2024-07-13 06:20] LABS: Albumin Level 3.9 g/dl (3.5-5.0); Chloride 105 mmol/L (98-107); Potassium 3.4 mmoL/L (3.5-5.1); Sodium 136 mmol/L (136-145)
[2024-07-13 06:23] LABS: Alanine Aminotransferase 28 U/L (12-78); Albumin/Globulin Ratio 1.5 (1.1-1.8); Alkaline Phosphatase 102 U/L (38-126); Anion Gap 10.4 mEq/L (5-15); Aspartate Amino Transferase 30 U/L (17-59); Bilirubin,Total 0.7 mg/dl (0.2-1.3); Blood Urea Nitrogen 17 mg/dl (9-20); Calcium 8.9 mg/dl (8.4-10.2); Carbon Dioxide 24 mmol/L (22.0-30.0); Creatinine Clearance Estimated 83 mL/min (50-200); Estimated Glomerular Filt Rate 67 ml/min (>60); GFR (African American) 82 ML/MIN (>60); Globulin 2.6 g/dL (1.3-3.2); Glucose 174 mg/dl (74-100); Total Protein,Serum 6.5 g/dl (6.3-8.2)
[2024-07-13] MEDS: SODIUM CHLORIDE 0.9% 10ML SYR (RAD ONLY) 10 ML IV (07:23)
[2024-07-13] MEDS: IOPAMIDOL-370 (76%);100ML BOTTLE 75 ML IV (07:23)
--- NOTE | 2024-07-13 07:38 | PC.NURSE ---
call made to radiology. spoke with ashley. she states scan is locked and in read status right now.
--- NOTE | 2024-07-13 08:15 | PC.NURSE ---
Rounded on pt, given pain medications and warm blanket for comfort. Updated we are awaiting ct results. Call light within reach
--- NOTE | 2024-07-13 08:57 | PC.NURSE ---
call made to radiology. TRN spoke with dany, states that the scan is still looked with [facility].
--- NOTE | 2024-07-13 09:15 | PC.NURSE ---
updated pt & his on results thus far, no needs at this time.
--- NOTE | 2024-07-13 10:22 | PC.NURSE ---
ED report and CT report faxed over to [facility] for his follow up appt next week. Radiology also sending down an imaging disc for patient.
[2024-07-13 11:36] LABS: HIV (1&2) Antibody Rapid NONREACTIVE (NONREACTIVE)
[2024-07-14 12:22] LABS: HCV Ab Non Reactive (Non Reactive)
== END 2024-07-13 10:40 | disposition home or self-care (01) ==
PROVIDERS: Emergency Medicine; Emergency Provider Student in an Organized Health Care Education/Training Program; PCP Nurse Practitioner
DX: N20.0 Calculus of kidney (principal); R10.32 Left lower quadrant pain; R11.10 Vomiting, unspecified
CPT/HCPCS: 74177; 80053; 81001; 83605; 85025; 85610; 86803; 87389; 96361; 96374; 96375; 99285; J1885; J2270; J2405; J7120; Q9967

== ENCOUNTER 2024-07-18 14:40 | Outpatient (CLI) | payer MEDICARE, MEDICAID, SELFPAY ==
--- NOTE | 2024-07-18 | ECG_ITS ---
APPROVED REPORT Exam: Resting ECG HR:56 bpm ECG Measurements Heart Rate 56 AXES MT 136 P 55 QRSd 104 QRS 77 QT 411 T 33 QTc 403 Conclusion SINUS BRADYCARDIA BORDERLINE ECG UNCONFIRMED REPORT Electronically signed by : J Carlos Montgomery MD 07/19/2024 16:41:10
== END 2024-07-18 23:59 | disposition home or self-care (01) ==
LOC: RT 14:52
PROVIDERS: PCP Nurse Practitioner; Visit Provider Internal Medicine
DX: Z01.818 Encounter for other preprocedural examination (principal)
CPT/HCPCS: 93005

== ENCOUNTER 2024-09-06 06:10 | Outpatient (CLI) | payer MEDICARE, MEDICAID, SELFPAY ==
--- NOTE | 2024-09-06 06:27 | CT_ITS ---
FINAL REPORT TECHNIQUE: Axial CT images of the abdomen were obtained without contrast. Coronal and sagittal reformatted images were also obtained. This study was performed with techniques to keep radiation doses as low as reasonably achievable (ALARA). Individualized dose reduction techniques using automated exposure control or adjustment of mA and/or kV according to the patient's size were employed. CLINICAL HISTORY: UPPER ABD PAIN FOR 3 WEEKS COMPARISON: 07/13/2024 FINDINGS: The lung bases are clear. The benign appearing cyst in the lateral segment of the left lobe of the liver is stable. The gallbladder is surgically absent. The pancreas and adrenals are unremarkable. The spleen measures at the upper limits of normal in size. There is a benign-appearing cyst in the anterior left kidney measuring 4.2 x 3.3 cm. The previously noted left hydronephrosis and hydroureter is no longer seen. The appendix appears unremarkable. IMPRESSION: Stable cyst in the liver and left kidney. Resolution of left hydronephrosis. Borderline splenomegaly. Reviewed, Interpreted and Dictated by Sanjeev Sutton MD Transcribed by Ginny Zacarias Authenticated and [facility]
== END 2024-09-06 23:59 | disposition home or self-care (01) ==
LOC: RAD 06:14
PROVIDERS: PCP Nurse Practitioner; Visit Provider Nurse Practitioner
DX: R10.10 Upper abdominal pain, unspecified (principal)
CPT/HCPCS: 74150

== ENCOUNTER 2024-09-11 09:06 | Outpatient (CLI) | payer MEDICARE, MEDICAID, SELFPAY ==
--- NOTE | 2024-09-11 09:09 | US_ITS ---
FINAL REPORT TECHNIQUE: Ultrasound images of the abdomen were obtained. CLINICAL HISTORY: EPIGASTRIC HERNIA COMPARISON: CT of the abdomen dated 09/06/2024 FINDINGS: The pancreas is obscured by bowel gas. The liver demonstrates increased echogenicity consistent with fatty infiltration. There are small hepatic cysts present, the largest measuring up to 1.5 cm in diameter. The gallbladder has been surgically resected. The common duct is normal. The right kidney measures 12.2 cm in length and is normal in echogenicity without hydronephrosis. The left kidney measures 12.2 cm in length and demonstrates a 4.1 x 3.8 cm hypoechoic cyst. No hydronephrosis is noted. The spleen is unremarkable. The aorta is normal in caliber. The vena cava is unremarkable. No evidence of an abdominal wall hernia is identified. IMPRESSION: Prior cholecystectomy without evidence of biliary ductal dilatation. Fatty infiltration of the liver, with small hepatic cysts. Hypoechoic left renal cyst as described. No evidence of hydronephrosis is seen in either kidney. No evidence of an anterior abdominal wall hernia is visualized. Reviewed, Interpreted and Dictated by Sanjeev Sutton MD Transcribed by Stephenie Preston Authenticated and [facility]
== END 2024-09-11 23:59 | disposition home or self-care (01) ==
LOC: RAD 09:07
PROVIDERS: PCP Nurse Practitioner; Visit Provider Nurse Practitioner
DX: K43.9 Ventral hernia without obstruction or gangrene (principal)
CPT/HCPCS: 76700

== ENCOUNTER 2024-09-13 19:10 | Emergency (ER) | payer MEDICARE, MEDICAID, SELFPAY ==
[2024-09-13 19:11] VITALS: BP 139/76; PULSE 77; RESP 12; TEMP 36.9; O2SAT 97; BMI 31.1
--- NOTE | 2024-09-13 19:19 | ECG_ITS ---
APPROVED REPORT Exam: Resting ECG HR:71 bpm ECG Measurements Heart Rate 71 AXES ND 135 P 54 QRSd 107 QRS 58 QT 386 T 40 QTc 408 Conclusion SINUS RHYTHM INCOMPLETE RIGHT BUNDLE BRANCH BLOCK [90+ ms QRS DURATION, TERMINAL R IN V1/V2, 40+ ms S IN I/aVL/V4/V5/V6] POSSIBLE INFERIOR MYOCARDIAL INFARCTION , PROBABLY OLD [30 ms Q WAVE IN II/aVF] BORDERLINE ECG UNCONFIRMED REPORT Electronically signed by : THADDEUS STACK, 09/14/2024 06:51:16
--- NOTE | 2024-09-13 19:34 | ED_ITS ---
Discharge Plan Disposition Patient Disposition: Home, Self-Care Condition: Good Prescriptions Prescriptions: New pantoprazole 40 mg tablet,delayed release (DR/EC) 40 mg PO DAILY Qty: 30 1RF alum-mag hydroxide-simeth [Maalox Maximum Strength] 400-400-40 mg/5 mL suspension 5 ml PO Q6H PRN (Reason: indigestion) Qty: 3000 0RF ondansetron 4 mg tablet,disintegrating 4 mg PO Q8H PRN (Reason: nausea and vomiting) 4 Days Qty: 12 0RF Discontinued esomeprazole magnesium 40 mg capsule,delayed release(DR/EC) 40 mg PO BID Patient Comments: TAKE ONE CAPSULE BY MOUTH TWICE DAILY No Action gabapentin 600 mg tablet 600 mg PO TID Patient Comments: TAKE ONE TABLET BY MOUTH THREE TIMES DAILY atorvastatin 20 mg tablet 20 mg PO DAILY Patient Comments: TAKE ONE TABLET BY MOUTH DAILY amlodipine 5 mg tablet 5 mg PO DAILY Patient Comments: TAKE ONE TABLET BY MOUTH DAILY ropinirole 2 mg tablet 2 mg PO HS Patient Comments: TAKE ONE TABLET BY MOUTH NIGHTLY AT BEDTIME finasteride 5 mg tablet 5 mg PO DAILY Patient Comments: TAKE ONE TABLET BY MOUTH ONCE DAILY alfuzosin 10 mg tablet extended release 24 hr 10 mg PO DAILY Patient Comments: TAKE ONE TABLET BY MOUTH EVERY DAY mesalamine 0.375 gram capsule,extended release 24hr 0.375 g PO DAILY Patient Comments: Take 4 capsules every day by oral route as directed for 90 days. Jardiance 25 mg tablet 25 mg PO DAILY Patient Comments: Take 1 tablet every day by oral route. Ozempic 0.25 mg or 0.5 mg (2 mg/3 mL) pen injector 0.25 mg SQ WEEKLY Patient Comments: INJECT 0.25 MG WEEKLY SUBCUTANEOUSLY FOR 30 DAYS azithromycin [Zithromax Z-Dangelo] 250 mg tablet See Rx Instructions .ROUTE .COMPLEX 5 Days Qty: 6 0RF Rx Instructions: For 250 mg dose pack: take 500 mg today (day 1), then 250 mg for 4 days (days 2-5) benzonatate 100 mg capsule 100 mg PO TID PRN (Reason: cough) Qty: 30 0RF guaifenesin [Mucinex] 600 mg tablet extended release 12hr 600 mg PO BID PRN (Reason: cough) Qty: 20 0RF ondansetron 4 mg tablet,disintegrating 4 mg PO Q8H PRN (Reason: nausea and vomiting) Qty: 10 0RF tamsulosin [Flomax] 0.4 mg capsule 0.4 mg PO DAILY 14 Days Qty: 14 0RF ketorolac 10 mg tablet 10 mg PO Q8H PRN (Reason: pain) 5 Days Qty: 15 0RF oxycodone 5 mg tablet 5 mg PO Q8H PRN (Reason: pain) 3 Days Qty: 9 0RF Referrals Follow up/Referrals: Rad Jacob II, MD [Staff Physician] - See instructions Consuelo Segundo APRN [Primary Care Provider] - See instructions Activity Restrictions/Add. Instructions Additional Instructions/Restrictions: You were evaluated in the emergency department today. Please follow-up very closely with your primary care provider. I also recommend close follow-up with gastroenterology. I provided you with information for Dr. Jacob. supervisor lens generating your prescriptions and take them as prescribed. Return to the emergency department for new or worsening symptoms. Clinical Impressions Clinical Impression: Diastasis of rectus abdominis, Abdominal pain, Nausea, vomiting and diarrhea, GERD with esophagitis Stand Alone Forms Stand Alone Forms: Work/School Release Instructions Patient Instructions: DI for Gastroesophageal Reflux Disease (GERD), DI for Diarrhea and Traveler's Diarrhea -- Adult, DI for Acute Abdominal Pain, DI for Nausea -- Adult Print Language Print Language: Maori Discharge ED Provider: Anca Jaquez General Adult HPI General Chief complaint: Abdominal Pain Stated complaint: Heart burn,congestion,vomiting Time Seen by Provider: 09/13/24 19:23 History of Present Illness HPI narrative: This patient is a 64-year-old male with a history of GERD, type 2 diabetes, hypertension, hyperlipidemia, depression, and anxiety presenting to the emergency department for evaluation with concern for abdominal pain. Patient has a history of prior cholecystectomy and prior hernia repair. He states that for the last several weeks, he has been having upper abdominal pain and a bulge in his abdomen when he tries to sit up or activate his abdominal wall musculature. He is concerned he has a hernia. He notes that he started having an increase of pain as well as nausea, vomiting, and diarrhea. Emesis and diarrhea are nonbloody. He has really bad heartburn as well. No fever or urinary symptoms associated. He saw his primary care provider for this and had CT scan 09/06/2024 and right upper quadrant ultrasound 09/11/24. Related Data Home Medications ?Medication ?Instructions ?Recorded ?Confirmed alfuzosin 10 mg tablet,extended 10 mg PO DAILY 05/29/24 05/29/24 release 24 hr amlodipine 5 mg tablet 5 mg PO DAILY 05/29/24 05/29/24 atorvastatin 20 mg tablet 20 mg PO DAILY 05/29/24 05/29/24 empagliflozin 25 mg tablet 25 mg PO DAILY 05/29/24 05/29/24 (Jardiance) finasteride 5 mg tablet 5 mg PO DAILY 05/29/24 05/29/24 gabapentin 600 mg tablet 600 mg PO TID 05/29/24 05/29/24 mesalamine 0.375 gram 0.375 g PO DAILY 05/29/24 05/29/24 capsule,extended release 24 hr ropinirole 2 mg tablet 2 mg PO HS 05/29/24 05/29/24 semaglutide 0.25 mg or 0.5 mg (2 0.25 mg SQ WEEKLY 05/29/24 05/29/24 mg/3 mL) subcutaneous pen injector (Ozempic) Previous Rx's ?Medication ?Instructions ?Recorded azithromycin 250 mg tablet See Rx Instructions PO .COMPLEX 5 05/29/24 (Zithromax Z-Dangelo) days #6 tabs benzonatate 100 mg capsule 100 mg PO TID PRN cough #30 caps 05/29/24 guaifenesin 600 mg tablet, 600 mg PO BID PRN cough #20 tabs 05/29/24 extended release 12 hr (Mucinex) ondansetron 4 mg disintegrating 4 mg PO Q8H PRN nausea and 05/29/24 tablet vomiting #10 tabs ketorolac 10 mg tablet 10 mg PO Q8H PRN pain 5 days #15 07/13/24 tabs oxycodone 5 mg tablet 5 mg PO Q8H PRN pain 3 days #9 tabs 07/13/24 tamsulosin 0.4 mg capsule (Flomax) 0.4 mg PO DAILY 14 days #14 caps 07/13/24 aluminum-mag hydroxide-simethicone 5 ml PO Q6H PRN indigestion #3,000 09/13/24 400 mg-400 mg-40 mg/5 mL oral susp mL (Maalox Maximum Strength) ondansetron 4 mg disintegrating 4 mg PO Q8H PRN nausea and 09/13/24 tablet vomiting 4 days #12 tabs pantoprazole 40 mg tablet,delayed 40 mg PO DAILY #30 tabs 09/13/24 release Allergies Allergy/AdvReac Type Severity Reaction Status Date / Time prednisone Allergy Mild Verified 08/11/23 16:36 levofloxacin (From Levaquin) Allergy Verified 08/11/23 16:36 lithium Allergy Verified 08/11/23 16:36 metronidazole (From Flagyl) Allergy Verified 08/11/23 16:36 mometasone furoate (From Allergy Verified 08/11/23 16:36 Asmanex Twisthaler) montelukast (From Singulair) Allergy Verified 08/11/23 16:36 PFSH PFSH Disclaimer: The information contained in this section may have been updated after the patient was seen, as this information can be updated by other users. Medical History GERD (gastroesophageal reflux disease) Depression Anxiety Diabetes mellitus, type 2 Hyperlipidemia Hypertension Surgical History History of cholecystectomy History of hip replacement Family History Brother Asthma Hypertension Mother Cancer Hypertension Sister Diabetes Hypertension Brother Diabetes Hypertension Grandfather Tuberculosis Social History Smoking Status: Never smoker second hand exposure: No alcohol intake: never substance use type: denies use current occupational status: unemployed Travel in the last 8 weeks: None lives independently: No marital status: Have you lived/traveled outside [place] in past 30 days?: No Contact w/someone who lives/traveled outside [place] past 30 days?: No Exposure to someone with infectious disease in past 14 days?: No Do you have a fever (greater than 100.4 F or 38 C)?: No Have you tested positive for COVID-19: No Exposed to someone with COVID-19 in past 14 days?: No Do you have a sore throat?: No Do you have a cough?: No Do you have any weakness?: No Do you have any diarrhea?: No Are you experiencing any unusual bleeding?: No Do you have any muscle aches/pain?: No Do you have any abdominal pain?: No Are you experiencing loss of taste or smell?: No ROS Obtained: Yes All systems reviewed & no additional complaints except as documented Physical Exam General General appearance: alert and in no apparent distress Head Head exam: atraumatic and normocephalic Eye Eye exam: Present normal appearance, PERRL and EOMI ENT ENT exam: Present normal exam, normal oropharynx, mucous membranes moist and normal external ear exam Neck Neck exam: Present normal inspection, full ROM and trachea midline; Absent tenderness Chest Chest inspection: Present normal inspection and symmetric chest wall rise; Absent tenderness Respiratory Respiratory exam: Present normal lung sounds bilaterally; Absent respiratory distress, wheezes, stridor or accessory muscle use Cardiovascular Cardiovascular exam: Present regular rate and normal rhythm Abdominal Exam Abdominal exam: Present soft and tenderness (Epigastric); Absent distention or guarding Comment: No appreciable hernia at rest, diastases of rectus abdominis muscles when activating his abdominal wall to trying to sit up Extremities Exam Extremities exam: Present normal inspection, full ROM and normal capillary refill; Absent tenderness or edema Back Exam Back exam: Present normal inspection and full ROM; Absent tenderness Neurological Exam Neurological exam: Present alert, oriented X3, CN II-XII intact and normal gait; Absent motor sensory deficit Psychiatric Psychiatric exam: Present normal affect and normal mood Skin Skin exam: Present warm and dry Medical Decision Making Medical Records Medical records reviewed: Yes I reviewed the patient's medical records. Screening: Per USPSTF and CDC recommendations, given the prevalence of disease in our region, it is our hospital?s policy to screen for HIV and viral Hepatitis for all patients aged 18 and over and those with ongoing risk factors. Jeet Inquiry Pt receiving controlled substance: No Vital Signs: 09/13/24 19:11 09/13/24 20:25 09/13/24 20:30 Temperature 98.4 F Temperature Source Oral Pulse Rate 69 65 Pulse Rate [Right Radial] 77 Respiratory Rate 12 14 23 Blood Pressure 122/76 119/66 Blood Pressure [Right Arm] 139/76 Blood Pressure Mean [Right Arm] 97 Blood Pressure Source Blood Pressure Source [Right Arm] Automatic Cuff 02 Sat by Pulse Oximetry 97 97 96 Oxygen Delivery Method Room Air Room Air Room Air 09/13/24 20:55 09/13/24 21:00 Temperature 98.4 F Temperature Source Pulse Rate 67 68 Pulse Rate [Right Radial] Respiratory Rate 19 24 Blood Pressure 119/66 111/69 Blood Pressure [Right Arm] Blood Pressure Mean [Right Arm] Blood Pressure Source Automatic Cuff Blood Pressure Source [Right Arm] 02 Sat by Pulse Oximetry 95 Oxygen Delivery Method Room Air Room Air Lab Data Lab results reviewed: Yes I reviewed the patient's lab results. Lab Results 09/13/24 19:32: WBC 4.6 L, RBC 4.54 L, Hgb 14.2, Hct 41.1 L, MCV 90.5, MCH 31.3 H, MCHC 34.5, RDW 13.2, Plt Count 190, MPV 9.9, Neut % (Auto) 51.6, Lymph % (Auto) 37.3, [place] % (Auto) 6.6, Eos % (Auto) 3.9, Baso % (Auto) 0.4, Neut # (Auto) 2.4, Lymph # (Auto) 1.7, [place] # (Auto) 0.3, Eos # (Auto) 0.2, Baso # (Auto) 0.0, Sodium 138, Potassium 3.8, Chloride 105, Carbon Dioxide 21 L, Anion Gap 15.8 H, BUN 16, Creatinine 0.90, Estimated Creat Clear 92, Estimated GFR 85, Est GFR ( Amer) 103, Glucose 192 H, Calcium 8.9, Total Bilirubin 0.8, AST 45, ALT 39, Alkaline Phosphatase 105, Troponin I < 0.01, Total Protein 6.7, Albumin 4.4, Globulin 2.3, Albumin/Globulin Ratio 1.9 H, Lipase 90, HCV Ab ERIC w/Rflx PCR Qn Negative, HIV Ag/Ab Combo Qual Negative 09/13/24 19:56: SARS-CoV-2 (PCR) Not detected, Influenza A Untype (PCR) Not detected, Influenza Type B (PCR) Not detected 09/13/24 20:00: Urine Color Yellow, Urine Appearance Clear, Urine pH 6.0, Ur Specific [place] 1.025, Urine Protein Negative, Urine Glucose (UA) 3+, Urine Ketones Negative, Urine Blood Negative, Urine Nitrate Negative, Urine Bilirubin Negative, Urine Urobilinogen 1.0, Ur Leukocyte Esterase Negative, Urine RBC Occasional, Urine WBC 3-5, Ur Squamous Epith Cells 3-5, Urine Mucus 1+ 09/13/24 20:17: Lactate 1.4 09/13/24 19:32 09/13/24 19:32 Orders (Tests/Meds): ED MEDICATIONS Discontinued Medications Generic Name Dose Route Start Last Admin Trade Name Sukhi PRN Reason Stop Dose Admin Acetaminophen 1,000 mg 09/13/24 19:33 09/13/24 20:21 Acetaminophen 1,000mg/100ml Vial IV 09/13/24 19:34 1,000 mg ONCE ONE Administration Belladonna Alkaloids 60 ml 09/13/24 19:33 09/13/24 20:09 Belladonna Alkaloids 60 Ml Ml PO 09/13/24 19:34 60 ml ONCE ONE Administration Famotidine 20 mg 09/13/24 19:33 09/13/24 20:16 Famotidine 20mg/2ml Vial IV 09/13/24 19:34 20 mg ONCE ONE Administration Lactated Ringer's 1,000 mls @ 999 mls/hr 09/13/24 19:33 09/13/24 20:38 Lactated Ringer's 1000 Ml Bag IV 09/13/24 20:33 999 mls/hr .Q1H1M ONE Administration Ketorolac Tromethamine 15 mg 09/13/24 19:33 09/13/24 20:13 Ketorolac 30mg/Ml Vial IV 09/13/24 19:34 15 mg ONCE ONE Administration Ondansetron HCl 4 mg 09/13/24 19:33 09/13/24 20:11 Ondansetron 4mg/2ml Vial IV 09/13/24 19:34 4 mg ONCE ONE Administration Sodium Chloride 8 ml 09/13/24 19:33 Sodium Chloride 0.9% 10ml Vial IV 10/13/24 19:32 NEEDED PRN dilute pepcid ORDERS Category Date Time Status Complete Blood Count Auto Diff Stat Lab 09/13/24 19:32 Completed Comprehensive Metabolic Panel Stat Lab 09/13/24 19:32 Completed HIV Combo Routine Lab 09/13/24 19:32 Completed Hepatitis C Ab Qual. W/ RFX Routine Lab 09/13/24 19:32 Completed Lactic Acid Stat Lab 09/13/24 20:17 Completed Lipase Stat Lab 09/13/24 19:32 Completed Rapid PCR Covid and Flu A/B Stat Lab 09/13/24 19:56 Completed Trop I [Troponin I] Stat Lab 09/13/24 19:32 Completed Troponin I Q3H Lab 09/13/24 22:30 Ordered UA [Urinalysis and Microscopic] Stat Lab 09/13/24 20:00 Completed ECG Data Tracing #1: I reviewed this ECG and interpreted as documented below: Normal sinus rhythm with ventricular of 71 bpm. Incomplete right bundle branch block. No acute ST changes concerning for STEMI. Normal intervals otherwise ECG initial impression date: 09/13/24 ECG initial impression time: 19:22 Medical Decision Narrative: In summary, this patient is a 64-year-old male presenting to the Emergency Department for evaluation of abdominal pain, nausea, vomiting, and diarrhea. Differential diagnoses considered include but are not limited to pancreatitis, ACS, gastritis, peptic ulcer disease, colitis, hernia, diastases rectus, gastroparesis. Ruling out the most morbid conditions drove assessment. It should be noted patient's history includes diabetes, GERD which may or may not be at goal therapy. This complicates all aspects of care by increasing patient's risk for morbidity. I reviewed patient's past medical records and noted outpatient CT scan and outpatient ultrasound obtained 09/06/2024 and 09/11/2024. I independently interpreted the imaging and noted no obvious large hernia, no obvious colonic inflammation. Please see radiology read for final interpretation. Per the report, the patient had mild splenomegaly. On exam, the patient is lying in bed in no acute distress. He does have diastases of his rectus abdominis muscles but no appreciable hernia on exam. He has epigastric tenderness but otherwise abdominal exam is benign. Vitals reassuring on cardiac telemetry. Workup included CBC, CMP, lipase, troponin, EKG, urinalysis. I ordered diarrhea panel but patient was not able to provide specimen. Patient was given GI cocktail, IV Zofran, IV Pepcid for symptomatic improvement as well as Toradol and acetaminophen. 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 Labs obtained were reassuring with very mild leukopenia, which is nonspecific. Blood counts otherwise look good. Anion gap and CO2 are slightly abnormal, consistent with slight dehydration. Urine is not concerning for infection. EKG looks good. Troponin negative. On reassessment, he had good symptomatic improvement after administration of interventions above. I had shared decision-making with the patient again who declines need for imaging, and states that he will follow-up with gastroenterology for further evaluation and management. It is possible he has gastritis/peptic ulcer disease causing his epigastric pain and significant heartburn symptoms. I changed his PPI to pantoprazole to see if he gets better symptomatic improvement and also prescribed him Maalox and Zofran. I gave him instructions for very close follow-up with GI as well as primary care and strict return precautions. He was discharged after all questions were answered. Critical Care Critical Care Time Critical Care Time: No
[2024-09-13 19:41] LABS: Basophils % 0.4 % (0.1-2.0); Eosinophils # 0.2 K/mm3 (0.0-0.4); Eosinophils % 3.9 % (0.1-12.0); Hematocrit 41.1 % (42.0-52.0); Hemoglobin 14.2 g/dL (14.1-18.0); Lymphocytes # 1.7 K/mm3 (0.7-4.5); Lymphocytes % 37.3 % (10-50); Mean Corpuscular HGB Conc 34.5 g/dL (31.8-35.4); Mean Corpuscular Hemoglobin 31.3 pg (27.0-31.2); Mean Corpuscular Volume 90.5 fl (80-94); Mean Platelet Volume 9.9 fl (7.4-10.4); Monocytes # 0.3 K/mm3 (0.1-1.0); Monocytes % 6.6 % (1.7-9.3); Neutrophils # 2.4 K/mm3 (1.8-7.8); Neutrophils % 51.6 % (37.0-80.0); Platelet Count 190 K/mm3 (142-424); Red Blood Count 4.54 M/mm3 (4.60-6.20); Red Cell Distribution Width 13.2 % (11.5-17.5); White Blood Count 4.6 K/mm3 (4.8-10.8)
[2024-09-13 19:50] LABS: Albumin Level 4.4 g/dl (3.5-5.0); Chloride 105 mmol/L (98-107); Sodium 138 mmol/L (136-145)
[2024-09-13 19:51] LABS: Potassium 3.8 mmoL/L (3.5-5.1)
[2024-09-13 19:53] LABS: Alanine Aminotransferase 39 U/L (12-78); Alkaline Phosphatase 105 U/L (38-126); Anion Gap 15.8 mEq/L (5-15); Aspartate Amino Transferase 45 U/L (17-59); Bilirubin,Total 0.8 mg/dl (0.2-1.3); Blood Urea Nitrogen 16 mg/dl (9-20); Carbon Dioxide 21 mmol/L (22.0-30.0); Creatinine Clearance Estimated 92 mL/min (50-200); Estimated Glomerular Filt Rate 85 ml/min (>60); GFR (African American) 103 ML/MIN (>60)
[2024-09-13 19:54] LABS: Albumin/Globulin Ratio 1.9 (1.1-1.8); Calcium 8.9 mg/dl (8.4-10.2); Globulin 2.3 g/dL (1.3-3.2); Glucose 192 mg/dl (74-100); Lipase 90 U/L (23-300); Total Protein,Serum 6.7 g/dl (6.3-8.2)
[2024-09-13 20:07] LABS: Appearance,Urine CLEAR (Clear); Bilirubin,Urine Negative (Negative); Blood, Urine Negative (Negative); Color,Urine YELLOW (Yellow); Glucose,Urine (UA) 3+ (Negative); Ketones,Urine Negative (Negative); Leukocyte Esterase,Urine Negative (Negative); Microscopic, Urine URINE MICROSCOPIC (MICROSCOPIC); Nitrate,Urine Negative (Negative); Protein,Urine Negative (Negative); Specific Gravity, Urine 1.025 (1.005-1.030)
[2024-09-13 20:07] LABS: Coronavirus 19, PCR Not Detected (NotDetected); Influenza A, PCR Not Detected (NotDetected); Influenza B, PCR Not Detected (NotDetected)
[2024-09-13] MEDS: BELLADONNA ALKALOIDS 60 ML ML PO (20:09)
[2024-09-13] MEDS: ONDANSETRON 4MG/2ML VIAL 4 MG IV (20:11)
[2024-09-13] MEDS: KETOROLAC 30MG/ML VIAL 15 MG IV (20:13)
[2024-09-13 20:14] LABS: Troponin I < 0.01 ng/ml (0.00-0.034)
[2024-09-13] MEDS: FAMOTIDINE 20MG/2ML VIAL 20 MG IV (20:16)
[2024-09-13] MEDS: ACETAMINOPHEN 1,000MG/100ML VIAL 1000 MG IV (20:21)
[2024-09-13 20:22] LABS: RBC,Urine Occasional #/hpf (0-3)
[2024-09-13 20:23] LABS: Mucus,Urine 1+ /lpf
[2024-09-13 20:25] VITALS: BP 122/76; PULSE 69; RESP 14; O2SAT 97
[2024-09-13 20:30] VITALS: BP 119/66; PULSE 65; RESP 23; O2SAT 96
[2024-09-13] MEDS: LACTATED RINGERS 1000ML 1,000 ML 999 ML IV (20:38)
[2024-09-13 20:53] LABS: HIV Combo NEGATIVE (Negative)
[2024-09-13 20:55] VITALS: BP 119/66; PULSE 67; RESP 19; TEMP 36.9; O2SAT 96
[2024-09-13 21:00] VITALS: BP 111/69; PULSE 68; RESP 24; O2SAT 95
[2024-09-13 21:00] LABS: Lactic Acid 1.4 mmol/L (0.7-2.1)
--- NOTE | 2024-09-13 21:00 | PC.NURSE ---
2008- GI cocktail administered, see MAR. 2010- Zofran administered, see MAR. 2013- Toradol administered, see MAR. 2016- Pepcid administered, see OCT. 2020- Tylenol administered, see MAR. Patient expresses no needs at this time. A & O x 4. No distress noted. Respirations are even and unlabored. Hemodynamic monitoring continued. Call smith in reach. Family x 1 at bedside. 2037- LRS administered, see MAR. Hourly rounding completed. Patient expresses no needs at this time. No change in condition. Will continue monitoring, no new orders at this time.
[2024-09-13 21:01] LABS: Hepatitis C Ab Qual. W/ RFX NEGATIVE (Negative)
== END 2024-09-13 21:08 | disposition home or self-care (01) ==
PROVIDERS: Emergency Provider Emergency Medicine; PCP Nurse Practitioner
DX: K21.00 Gastro-esophageal reflux disease with esophagitis, without bleeding (principal); R10.10 Upper abdominal pain, unspecified; R11.2 Nausea with vomiting, unspecified; R19.7 Diarrhea, unspecified; R12 Heartburn; I10 Essential (primary) hypertension; E78.5 Hyperlipidemia, unspecified
CPT/HCPCS: 80053; 81001; 83605; 83690; 84484; 85025; 86803; 87389; 87636; 93005; 96361; 96374; 96375; 99284; J0131; J1885; J2405; J7120; S0028

== ENCOUNTER 2024-10-07 15:17 | Emergency (ER) | payer MEDICARE, MEDICAID, SELFPAY ==
[2024-10-07 15:37] VITALS: BP 118/69; PULSE 72; RESP 18; TEMP 36.6; O2SAT 98; BMI 29.5
[2024-10-07 15:54] VITALS: BP 121/68; PULSE 73; O2SAT 95
--- NOTE | 2024-10-07 16:20 | ED_ITS ---
Discharge Plan Disposition Patient Disposition: Home, Self-Care Condition: Good Prescriptions Prescriptions: No Action gabapentin 600 mg tablet 600 mg PO TID Patient Comments: TAKE ONE TABLET BY MOUTH THREE TIMES DAILY atorvastatin 20 mg tablet 20 mg PO DAILY Patient Comments: TAKE ONE TABLET BY MOUTH DAILY amlodipine 5 mg tablet 5 mg PO DAILY Patient Comments: TAKE ONE TABLET BY MOUTH DAILY ropinirole 2 mg tablet 2 mg PO HS Patient Comments: TAKE ONE TABLET BY MOUTH NIGHTLY AT BEDTIME finasteride 5 mg tablet 5 mg PO DAILY Patient Comments: TAKE ONE TABLET BY MOUTH ONCE DAILY alfuzosin 10 mg tablet extended release 24 hr 10 mg PO DAILY Patient Comments: TAKE ONE TABLET BY MOUTH EVERY DAY mesalamine 0.375 gram capsule,extended release 24hr 0.375 g PO DAILY Patient Comments: Take 4 capsules every day by oral route as directed for 90 days. Jardiance 25 mg tablet 25 mg PO DAILY Patient Comments: Take 1 tablet every day by oral route. Ozempic 0.25 mg or 0.5 mg (2 mg/3 mL) pen injector 0.25 mg SQ WEEKLY Patient Comments: INJECT 0.25 MG WEEKLY SUBCUTANEOUSLY FOR 30 DAYS azithromycin [Zithromax Z-Dangelo] 250 mg tablet See Rx Instructions .ROUTE .COMPLEX 5 Days Qty: 6 0RF Rx Instructions: For 250 mg dose pack: take 500 mg today (day 1), then 250 mg for 4 days (days 2-5) benzonatate 100 mg capsule 100 mg PO TID PRN (Reason: cough) Qty: 30 0RF guaifenesin [Mucinex] 600 mg tablet extended release 12hr 600 mg PO BID PRN (Reason: cough) Qty: 20 0RF ondansetron 4 mg tablet,disintegrating 4 mg PO Q8H PRN (Reason: nausea and vomiting) Qty: 10 0RF tamsulosin [Flomax] 0.4 mg capsule 0.4 mg PO DAILY 14 Days Qty: 14 0RF ketorolac 10 mg tablet 10 mg PO Q8H PRN (Reason: pain) 5 Days Qty: 15 0RF oxycodone 5 mg tablet 5 mg PO Q8H PRN (Reason: pain) 3 Days Qty: 9 0RF pantoprazole 40 mg tablet,delayed release (DR/EC) 40 mg PO DAILY Qty: 30 1RF alum-mag hydroxide-simeth [Maalox Maximum Strength] 400-400-40 mg/5 mL suspension 5 ml PO Q6H PRN (Reason: indigestion) Qty: 3000 0RF ondansetron 4 mg tablet,disintegrating 4 mg PO Q8H PRN (Reason: nausea and vomiting) 4 Days Qty: 12 0RF Referrals Follow up/Referrals: Consuelo Segundo APRN [Primary Care Provider] - See instructions Activity Restrictions/Add. Instructions Additional Instructions/Restrictions: Apply erythromycin ointment to the right eye 4 times per day. You likely have an abrasion. No foreign body was visualized in your eye or ulceration. It is advised that you wear eye protection while using power tools. If your symptoms worsen, please return for reevaluation or go to an sonar technician. Please return to ED if your symptoms worsen, change in location, change in severity, new symptoms develop or if you become concerned for your health. Clinical Impressions Clinical Impression: Corneal abrasion Qualifiers: Encounter type: initial encounter Laterality: right Qualified Code(s): S05.01XA - Injury of conjunctiva and corneal abrasion without foreign body, right eye, initial encounter Instructions Patient Instructions: DI for Corneal Abrasion Print Language Print Language: Yoruba Discharge ED Provider: Elodia Alba Adult HPI General Chief complaint: Eye Problems Stated complaint: AO 10/07/24 1500 FB right eye Time Seen by Provider: 10/07/24 15:49 Mode of Arrival: Ambulatory Source of Information: Patient Limitations: No Limitations Description of Symptoms (Recalled from ER Triage Doc. by RN): Pt states he was cutting metal and may have gotten a piece of metal in his eye. Pt states he was not wearing safety glasses. History of Present Illness HPI narrative: Elliot Mata is a 64-year-old male presenting with eye pain. Patient states he was cutting a hole in a piece of metal without wearing safety glasses and felt that he got something in his eye. He complains of a scratching sensation in the right eye. He denies blurred vision, double vision. Patient does not wear contacts or glasses. Patient had cataract surgery in July. Patient denies pain with extraocular movements. Related Data Home Medications ?Medication ?Instructions ?Recorded ?Confirmed alfuzosin 10 mg tablet,extended 10 mg PO DAILY 05/29/24 05/29/24 release 24 hr amlodipine 5 mg tablet 5 mg PO DAILY 05/29/24 05/29/24 atorvastatin 20 mg tablet 20 mg PO DAILY 05/29/24 05/29/24 empagliflozin 25 mg tablet 25 mg PO DAILY 05/29/24 05/29/24 (Jardiance) finasteride 5 mg tablet 5 mg PO DAILY 05/29/24 05/29/24 gabapentin 600 mg tablet 600 mg PO TID 05/29/24 05/29/24 mesalamine 0.375 gram 0.375 g PO DAILY 05/29/24 05/29/24 capsule,extended release 24 hr ropinirole 2 mg tablet 2 mg PO HS 05/29/24 05/29/24 semaglutide 0.25 mg or 0.5 mg (2 0.25 mg SQ WEEKLY 05/29/24 05/29/24 mg/3 mL) subcutaneous pen injector (Ozempic) Previous Rx's ?Medication ?Instructions ?Recorded azithromycin 250 mg tablet See Rx Instructions PO .COMPLEX 5 05/29/24 (Zithromax Z-Dangelo) days #6 tabs benzonatate 100 mg capsule 100 mg PO TID PRN cough #30 caps 05/29/24 guaifenesin 600 mg tablet, 600 mg PO BID PRN cough #20 tabs 05/29/24 extended release 12 hr (Mucinex) ondansetron 4 mg disintegrating 4 mg PO Q8H PRN nausea and 05/29/24 tablet vomiting #10 tabs ketorolac 10 mg tablet 10 mg PO Q8H PRN pain 5 days #15 07/13/24 tabs oxycodone 5 mg tablet 5 mg PO Q8H PRN pain 3 days #9 tabs 07/13/24 tamsulosin 0.4 mg capsule (Flomax) 0.4 mg PO DAILY 14 days #14 caps 07/13/24 aluminum-mag hydroxide-simethicone 5 ml PO Q6H PRN indigestion #3,000 09/13/24 400 mg-400 mg-40 mg/5 mL oral susp mL (Maalox Maximum Strength) ondansetron 4 mg disintegrating 4 mg PO Q8H PRN nausea and 09/13/24 tablet vomiting 4 days #12 tabs pantoprazole 40 mg tablet,delayed 40 mg PO DAILY #30 tabs 09/13/24 release Allergies Allergy/AdvReac Type Severity Reaction Status Date / Time prednisone Allergy Mild Verified 08/11/23 16:36 levofloxacin (From Levaquin) Allergy Verified 08/11/23 16:36 lithium Allergy Verified 08/11/23 16:36 metronidazole (From Flagyl) Allergy Verified 08/11/23 16:36 mometasone furoate (From Allergy Verified 08/11/23 16:36 Asmanex Twisthaler) montelukast (From Singulair) Allergy Verified 08/11/23 16:36 [facility] Disclaimer: The information contained in this section may have been updated after the lubna prasad was seen, as this information can be updated by other users. Medical History GERD (gastroesophageal reflux disease) Depression Anxiety Diabetes mellitus, type 2 Hyperlipidemia Hypertension Surgical History History of cholecystectomy History of hip replacement Family History Brother Asthma Hypertension Mother Cancer Hypertension Sister Diabetes Hypertension Brother Diabetes Hypertension Grandfather Tuberculosis Social History Smoking Status: Never smoker second hand exposure: No alcohol intake: never substance use type: denies use current occupational status: unemployed Travel in the last 8 weeks: None lives independently: No marital status: Have you lived/traveled outside [place] in past 30 days?: No Contact w/someone who lives/traveled outside [place] past 30 days?: No Exposure to someone with infectious disease in past 14 days?: No Do you have a fever (greater than 100.4 F or 38 C)?: No Have you tested positive for COVID-19: No Exposed to someone with COVID-19 in past 14 days?: No Do you have a sore throat?: No Do you have a cough?: No Do you have any weakness?: No Do you have any diarrhea?: No Are you experiencing any unusual bleeding?: No Do you have any muscle aches/pain?: No Do you have any abdominal pain?: No Are you experiencing loss of taste or smell?: No ROS Obtained: Yes All systems reviewed & no additional complaints except as documented Physical Exam General General appearance: alert and in no apparent distress Head Head exam: atraumatic and normocephalic Eye Eye exam: Present normal appearance, PERRL and EOMI; Absent conjunctival redness, conjunctival injection, discharge, periorbital swelling or periorbital tenderness Respiratory Respiratory exam: Present normal lung sounds bilaterally; Absent respiratory distress Cardiovascular Cardiovascular exam: Present regular rate and normal rhythm Abdominal Exam Abdominal exam: Present soft; Absent tenderness Extremities Exam Extremities exam: Present full ROM Back Exam Back exam: Present full ROM Neurological Exam Neurological exam: Present alert and oriented X3 Medical Decision Making Medical Records Medical records reviewed: Yes I reviewed the patient's medical records. Screening: Per USPSTF and CDC recommendations, given the prevalence of disease in our region, it is our hospital?s policy to screen for HIV and viral Hepatitis for all patients aged 18 and over and those with ongoing risk factors. Jeet Inquiry Pt receiving controlled substance: No Jeet was queried for this patient: No Vital Signs: 10/07/24 15:37 10/07/24 15:54 10/07/24 16:23 Temperature 98 F 98 F Temperature Source Oral Pulse Rate 73 64 Pulse Rate [Right] 72 Respiratory Rate 18 18 Blood Pressure 121/68 118/72 Blood Pressure [Right Arm] 118/69 Blood Pressure Mean [Right Arm] 85 Blood Pressure Source [Right Arm] Automatic Cuff Blood Pressure Position [Right Arm] Sitting 02 Sat by Pulse Oximetry 98 95 Oxygen Delivery Method Room Air Room Air Medical Decision Narrative: In summary, this is a 64-year-old male presenting with right eye pain. Differential diagnosis includes but is not limited to, corneal abrasion, foreign body, conjunctivitis, keratitis, periorbital cellulitis, among others. Patient has no decreased vision, blurred vision, erythema or drainage. No foreign body visualized on exam. Tetracaine placed in patient's right eye. Patient's right eye stained and evaluated under Baird lamp without evidence of ulceration or foreign body. Ultrasound of right eye performed which was negative for foreign body, vitreous or retinal detachment/hemorrhage, normal optic nerve diameter visualized. I discussed the findings with the patient and his family at bedside. R ecommended erythromycin ointment for likely abrasion. Patient advised to wear eye protection when utilizing power tools. Patient given return precautions as well as follow-up recommendations. Patient and family in agreement with this plan. Patient discharged in stable condition. Elodia Alba MD Critical Care Critical Care Time Critical Care Time: No
[2024-10-07 16:23] VITALS: BP 118/72; PULSE 64; RESP 18; TEMP 36.6; O2SAT 94
== END 2024-10-07 16:27 | disposition home or self-care (01) ==
PROVIDERS: Emergency Provider Student in an Organized Health Care Education/Training Program; PCP Nurse Practitioner
DX: S05.01XA Injury of conjunctiva and corneal abrasion without foreign body, right eye, initial encounter (principal); H57.11 Ocular pain, right eye; X58.XXXA Exposure to other specified factors, initial encounter; Y93.89 Activity, other specified
CPT/HCPCS: 99283

== ENCOUNTER 2024-10-15 16:09 | Observation (INO) | payer MEDICARE, MEDICAID, SELFPAY ==
[2024-10-15 16:10] VITALS: BMI 29.3
[2024-10-15 16:12] VITALS: BP 129/76; PULSE 61; RESP 18; TEMP 36.7; O2SAT 98; BMI 29.3
--- NOTE | 2024-10-15 16:13 | ECG_ITS ---
APPROVED REPORT Exam: Resting ECG HR:59 bpm ECG Measurements Heart Rate 59 AXES WV 138 P 58 QRSd 103 QRS 69 QT 412 T 54 QTc 412 Conclusion SINUS BRADYCARDIA No acute ST changes Electronically signed by : PAVAN MONTIEL, 10/15/2024 23:46:05
--- NOTE | 2024-10-15 16:22 | PC.NURSE ---
Pt brought back to room 10. He c/o LUE arm pain that began last night and persisted t/o today. States he then began to have chest pain that radiated into left jaw and neck. States today at 12p, his left side of face had some numbness and tingling. He has moved all extremities well and walked back to room 10.
--- NOTE | 2024-10-15 16:24 | ED_ITS ---
<Statement entered by Anca Jaquez DO - 10/15/24 23:03> I was consulted by the HEMAL, and we discussed the complexity of the problems being addressed. I approved the treatment and management plan for this patient's care in the emergency department, thus performing a substantive portion of the medical decision making. Patient arrives complaining of chest pain, however on initial assessment by our PA had noted some L facial numbness as well. On my assessment of the patient, NIHSS is 1 for subjective decrease in sensation of L face. He states that his vision seems a little bit off but cannot further characterize this, he has no visual field deficits noted on my exam. Otherwise, I do not note any focal neurologic deficits. Patient was immediately taken for stroke CT scans, which did not demonstrate any intracranial hemorrhage on my independent interpretation. I also do not see large vessel occlusion. I considered tPA/TNK, however patient complained of symptoms outside of window since his last known well was almost 5 hours before he had notified us of the symptoms. He also has a very low NIH stroke scale so I do not feel that the left facial sensory issue is potentially devastating to him and would make the benefit of thrombolytics outweigh the risk. I considered thrombectomy, however the patient has no large vessel occlusion. Initial troponin negative, CTA reassuring. Ultimately, I feel the patient would benefit from admission for continued stroke evaluation, risk factor modification. Patient was admitted in stable condition. I personally performed critical care. Anca Jaquez DO Discharge Plan Disposition Patient Disposition: Admitted Condition: Fair Clinical Impressions Clinical Impression: Chest pain, Facial paresthesia Discharge ED Provider: Anca Jaquez General Adult HPI <REGINA Alvarado - Last Filed: 10/15/24 22:46> General Chief complaint: PAIN Stated complaint: Chest Pain Time Seen by Provider: 10/15/24 16:24 Mode of Arrival: Ambulatory Source of Information: Patient Description of Symptoms (Recalled from ER Triage Doc. by RN): Pt states he had left arm pain that started last night and then today developed a pressure to his chest. Pt states he has numbness that started to left side of his face/neck that started at 12pm. History of Present Illness HPI narrative: Patient presents for evaluation of initially chest pain. Patient states that he began having left arm pain last evening. It progressed to left chest discomfort. Patient reports that he had it continuously all night and throughout the day and around noon today began having paresthesia of his left face. He reports that it feels numb but has had no problems with word finding speech eating drinking swallowing walking. He has no change in his level of consciousness headache chest pain shortness of breath fever chills hemoptysis hematochezia melena nausea vomit diarrhea. He does not have a cardiovascular history or known cardiovascular disease. Related Data Home Medications ?Medication ?Instructions ?Recorded ?Confirmed amlodipine 5 mg tablet 5 mg PO DAILY 05/29/24 10/15/24 atorvastatin 20 mg tablet 20 mg PO DAILY 05/29/24 10/15/24 empagliflozin 25 mg tablet 25 mg PO DAILY 05/29/24 10/15/24 (Jardiance) gabapentin 600 mg tablet 600 mg PO TID 05/29/24 10/15/24 mesalamine 0.375 gram 0.375 g PO DAILY 05/29/24 10/15/24 capsule,extended release 24 hr semaglutide 0.25 mg or 0.5 mg (2 0.25 mg SQ WEEKLY 05/29/24 10/15/24 mg/3 mL) subcutaneous pen injector (Ozempic) divalproex 500 mg tablet,extended 500 mg PO BID 10/15/24 10/15/24 release 24 hr propranolol 10 mg tablet 10 mg PO BID 10/15/24 10/15/24 Previous Rx's ?Medication ?Instructions ?Recorded ondansetron 4 mg disintegrating 4 mg PO Q8H PRN nausea and 05/29/24 tablet vomiting #10 tabs ketorolac 10 mg tablet 10 mg PO Q8H PRN pain 5 days #15 07/13/24 tabs oxycodone 5 mg tablet 5 mg PO Q8H PRN pain 3 days #9 tabs 07/13/24 tamsulosin 0.4 mg capsule (Flomax) 0.4 mg PO DAILY 14 days #14 caps 07/13/24 aluminum-mag hydroxide-simethicone 5 ml PO Q6H PRN indigestion #3,000 09/13/24 400 mg-400 mg-40 mg/5 mL oral susp mL (Maalox Maximum Strength) Allergies Allergy/AdvReac Type Severity Reaction Status Date / Time prednisone Allergy Mild Other Verified 10/15/24 16:12 levofloxacin (From Levaquin) Allergy Other Verified 10/15/24 16:12 lithium Allergy Other Verified 10/15/24 16:12 metronidazole (From Flagyl) Allergy Other Verified 10/15/24 16:12 mometasone furoate (From Allergy Other Verified 10/15/24 16:12 Asmanex Twisthaler) montelukast (From Singulair) Allergy Other Verified 10/15/24 16:12 [facility] <REGINA Alvarado - Last Filed: 10/15/24 22:46> [facility] Disclaimer: The information contained in this section may have been updated after the patient was seen, as this information can be updated by other users. Medical History (Updated 10/15/24 @ 19:04 by Zulema Julian RN) Left wrist amputee GERD (gastroesophageal reflux disease) Depression Anxiety Diabetes mellitus, type 2 Hyperlipidemia Hypertension Surgical History (Updated 10/15/24 @ 19:04 by Zulema Julian RN) H/O left wrist surgery Hx of cataract surgery History of cholecystectomy History of hip replacement Family History Tuberculosis Grandfather Diabetes Sister Brother Cancer Mother Hypertension Brother Mother Sister Brother Asthma Brother Social History (Updated 10/15/24 @ 18:53 by Zulema Julian RN) Smoking Status: Never smoker second hand exposure: No alcohol intake: never substance use type: denies use current occupational status: unemployed Travel in the last 8 weeks: None lives independently: No marital status: Have you lived/traveled outside [place] in past 30 days?: No Contact w/someone who lives/traveled outside US past 30 days?: No Exposure to someone with infectious disease in past 14 days?: No Do you have a fever (greater than 100.4 F or 38 C)?: No Have you tested positive for COVID-19: No Exposed to someone with COVID-19 in past 14 days?: No Do you have a sore throat?: No Do you have a cough?: No Do you have any weakness?: No Are you experiencing any nausea/vomitting?: No Do you have any diarrhea?: No Are you experiencing any unusual bleeding?: No Do you have any muscle aches/pain?: No Do you have any abdominal pain?: No Are you experiencing loss of taste or smell?: No <REGINA Alvarado - Last Filed: 10/15/24 22:46> ROS Obtained: Yes Systems reviewed as appropriate & no additional complaints except as documented Physical Exam <REGINA Alvarado - Last Filed: 10/15/24 22:46> General General appearance: alert and in no apparent distress Respiratory Respiratory exam: Present normal lung sounds bilaterally Cardiovascular Cardiovascular exam: Present regular rate Neurological Exam Neurological exam: Present alert and oriented X3 Medical Decision Making <REGINA Alvarado - Last Filed: 10/15/24 22:46> Medical Records Medical records reviewed: Yes I reviewed the patient's medical records. Screening: Per USPSTF and CDC recommendations, given the prevalence of disease in our region, it is our hospital?s policy to screen for HIV and viral Hepatitis for all patients aged 18 and over and those with ongoing risk factors. Jeet Inquiry Pt receiving controlled substance: No Vital Signs: 10/15/24 16:12 10/15/24 16:54 10/15/24 18:20 Temperature 98.0 F Temperature Source Oral Pulse Rate 66 68 Pulse Rate [Right] 61 Respiratory Rate 18 Blood Pressure 130/72 104/67 L Blood Pressure [Right Arm] 129/76 Blood Pressure Mean [Right Arm] 93 Blood Pressure Source Blood Pressure Source [Right Arm] Automatic Cuff Blood Pressure Position Blood Pressure Position [Right Arm] Sitting 02 Sat by Pulse Oximetry 98 96 95 Oxygen Delivery Method Room Air Room Air 10/15/24 18:25 Temperature 98.2 F Temperature Source Oral Pulse Rate 70 Pulse Rate [Right] Respiratory Rate 18 Blood Pressure 104/67 L Blood Pressure [Right Arm] Blood Pressure Mean [Right Arm] Blood Pressure Source Automatic Cuff Blood Pressure Source [Right Arm] Blood Pressure Position Supine Blood Pressure Position [Right Arm] 02 Sat by Pulse Oximetry Oxygen Delivery Method Room Air Lab Data Lab results reviewed: Yes I reviewed the patient's lab results. Lab Results 10/15/24 16:25: WBC 4.5 L, RBC 4.78, Hgb 15.0, Hct 44.1, MCV 92.3, MCH 31.4 H, MCHC 34.0, RDW 13.1, Plt Count 185, MPV 10.1, Neut % (Auto) 50.9, Lymph % (Auto) 35.4, Holmes % (Auto) 8.6, Eos % (Auto) 3.8, Baso % (Auto) 0.9, Neut # (Auto) 2.3, Lymph # (Auto) 1.6, Holmes # (Auto) 0.4, Eos # (Auto) 0.2, Baso # (Auto) 0.0, PT 11.4, INR 1.02, APTT 26.6, Sodium 139, Potassium 3.6, Chloride 105, Carbon Dioxide 26, Anion Gap 11.6, BUN 10, Creatinine 0.80, Estimated Creat Clear 87, Estimated GFR 97, Est GFR ( Amer) 118, Glucose 146 H, Hemoglobin A1c 5.3, Calcium 8.8, Total Bilirubin 0.7, AST 32, ALT 25, Alkaline Phosphatase 100, Troponin I < 0.01, NT-Pro-B Natriuret Pep 21.8, Total Protein 6.9, Albumin 4.4, Globulin 2.5, Albumin/Globulin Ratio 1.8, Triglycerides 187 H, Cholesterol 130 L , LDL Cholesterol Direct 64.96 L, VLDL Cholesterol 37, HDL Cholesterol 39 L, Cholesterol/HDL Ratio 3.3, TSH 3.32, Plasma/Serum Alcohol < 10 10/15/24 17:05: SARS-CoV-2 (PCR) Not detected, Influenza A Untype (PCR) Not detected, Influenza Type B (PCR) Not detected 10/15/24 16:25 10/15/24 16:25 Orders (Tests/Meds): ED MEDICATIONS Generic Name Dose Route Start Last Admin Trade Name Freq PRN Reason Stop Dose Admin Aspirin 81 mg 10/16/24 09:00 Aspirin Ec 81mg Tablet PO 11/15/24 08:59 DAILY [facility] Aspirin 325 mg 10/15/24 18:14 10/15/24 18:41 Aspirin 325mg Tablet PO 10/15/24 18:15 325 mg ONCE ONE Administration Atorvastatin Calcium 80 mg 10/15/24 21:00 10/15/24 20:09 Atorvastatin 40mg Tablet PO 11/14/24 20:59 80 mg HS GERARD Administration Clopidogrel Bisulfate 75 mg 10/16/24 09:00 Clopidogrel 75mg Tab PO 11/15/24 08:59 DAILY [facility] Empagliflozin 25 mg 10/16/24 09:00 Empagliflozin 25mg Tablet PO 11/15/24 08:59 DAILY [facility] Enoxaparin Sodium 40 mg 10/15/24 18:13 10/15/24 18:41 Enoxaparin 40mg/0.4ml Syringe SUBCUT 10/15/24 18:14 40 mg ONCE ONE Administration Gabapentin 600 mg 10/16/24 09:00 Gabapentin 600mg Tablet PO 11/15/24 08:59 TID [facility] Insulin Human Lispro 0 unit 10/16/24 06:00 Humalog 100 Units/Ml 10ml Vial (Ssi) SUBCUT 11/15/24 05:59 ACHS [facility] Protocol Miscellaneous 1 each 10/15/24 18:11 Consider Pt For Statin At Discharge-Stroke NOTAPPLIC 11/14/24 18:10 NEEDED PRN Reminder for med @discharge Non-Formulary Medication 5 ml 10/15/24 21:43 Alum-Mag Hydroxide-Simeth [Maalox Maximum Strength] PO Q6H PRN indigestion Non-Formulary Medication 500 mg 10/16/24 09:00 Divalproex PO 11/15/24 08:59 BID [facility] Non-Formulary Medication 0.375 gm 10/16/24 09:00 Mesalamine PO 11/15/24 08:59 DAILY [facility] Non-Formulary Medication 10 mg 10/16/24 09:00 Propranolol PO 11/15/24 08:59 BID [facility] Sodium Chloride 10 ml 10/15/24 16:55 Sodium Chloride 0.9% 10ml Syr (Rad Only) IV 11/14/24 16:54 NEEDED PRN Maintain IV Site Tamsulosin HCl 0.4 mg 10/16/24 09:00 Tamsulosin 0.4mg Capsule PO 11/15/24 08:59 DAILY [facility] Discontinued Medications Generic Name Dose Route Start Last Admin Trade Name Freq PRN Reason Stop Dose Admin Acetaminophen 1,000 mg 10/15/24 17:45 10/15/24 18:18 Acetaminophen 500mg Tab PO 10/15/24 17:46 1,000 mg ONCE ONE Administration Dexamethasone Sodium Phosphate 10 mg 10/15/24 17:45 10/15/24 18:16 Dexamethasone 4mg/Ml 5ml Mdv IV 10/15/24 17:46 10 mg ONCE ONE Administration Iopamidol 160 ml 10/15/24 16:55 10/15/24 18:37 Iopamidol-370 (76%);100ml Bottle IV 10/15/24 16:56 Not Given ONCE ONE Ketorolac Tromethamine 15 mg 10/15/24 17:45 10/15/24 18:17 Ketorolac 30mg/Ml Vial IV 10/15/24 17:46 15 mg ONCE ONE Administration Methocarbamol 500 mg 10/15/24 17:45 10/15/24 18:17 Methocarbamol 500mg Tablet PO 10/15/24 17:46 500 mg ONCE ONE Administration Ondansetron HCl 4 mg 10/15/24 17:45 10/15/24 18:16 Ondansetron 4mg/2ml Vial IV 10/15/24 17:46 4 mg ONCE ONE Administration Sodium Chloride 100 ml 10/15/24 16:55 10/15/24 18:37 0.9 % Sodium Chloride 50 Ml Vial IV 10/15/24 16:56 Not Given ONCE ONE ORDERS Category Date Time Status CT angio chest PE protocol Stat Cat Scan 10/15/24 16:[address] angio head Stat Cat Scan 10/15/24 16:[address] angio neck Stat Cat Scan 10/15/24 16:[address] head/brain wo con Stat Cat Scan 10/15/24 16:51 Completed Blood alcohol [Ethyl Alcohol] Stat Lab 10/15/24 16:25 Completed Complete Blood Count Auto Diff AMLAB Lab 10/16/24 06:00 Ordered Complete Blood Count Auto Diff Stat Lab 10/15/24 16:25 Completed Comprehensive Metabolic Panel AMLAB Lab 10/16/24 06:00 Ordered Comprehensive Metabolic Panel Stat Lab 10/15/24 16:25 Completed Hemoglobin A1C Stat Lab 10/15/24 16:25 Completed Lipid Panel Stat Lab 10/15/24 16:25 Completed Magnesium AMLAB Lab 10/16/24 06:00 Ordered NT Pro Brain Natriuretic Pep. Stat Lab 10/15/24 16:25 Completed PTT [Activated Partial Thrombo Time] Stat Lab 10/15/24 16:25 Completed Prothrombin Time INR Stat Lab 10/15/24 16:25 Completed Rapid PCR Covid and Flu A/B Stat Lab 10/15/24 17:05 Completed TSH [Thyroid Stimulating Hormone] Stat Lab 10/15/24 16:25 Completed Troponin I Q3H Lab 10/15/24 16:25 Completed Troponin I Q3H Lab 10/15/24 20:10 Completed CA echo doppler complete Routine Y 10/15/24 18:15 Ordered HEART Score History (anamnesis): Slightly suspicious ECG: Normal Age: 45-65 years Risk factors: 1-2 risk factors Troponin: </= normal limit HEART Score: 2 Medical Decision Narrative: In summary patient is a 64-year-old male who presents to the emergency department for evaluation of chest pain arm pain facial paresthesia. Patient is hemodynamically stable blood pressure 129/76 pulse 61 respiratory rate 18 temperature is 98.0 satting at 98% on room air upon arrival. Physical exam is remarkable for a Cary Coma Score 15 patient is awake alert and oriented person place and circumstance cranial nerves II through XII are intact to exam. Patient at rest appears to have some left-sided mouth droop however there is no asymmetry on cranial nerve testing patient is tongue protrusion is normal patient has a normal eyebrow raise normal shoulder shrug but does have altered sensation of his left cheek from his right on exam. Straight leg raise shows that he has some left lower extremity drift but it does not reach the bed. No other focal neurologic deficits. NIH stroke score is 1 for the facial paresthesia. Extraocular movements are intact pupils equal round reactive to light patient has no extinction no visual field disturbances.. Differential diagnosis includes stroke versus Chen's palsy versus ACS versus service algia etc. Initial workup will be conducted with stroke alert secludes hematologic labs twelve-lead EKG CT scan of the head without contrast CTAs of the head and neck.. Initial interventions include Tylenol and Zofran for now. I considered TNK however patient is outside of the window for thrombolytics at the time of my arrival as it is 4 hours past the time of his last known well, and NIH stroke score of 1 with no definitive stroke findings other than the paresthesias to his face makes the risk versus benefit analysis not in the patient's favor for TNK. Initial workup reviewed by me shows that his hematologic labs are nonactionable his initial troponin is undetectable and his stroke scans do not show any large vessel occlusion or abnormality.. Upon repeat evaluation patient still reports the paresthesia to his face and arm pain. Given this had interactive discussion with hospital medicine regarding patient presentation SAUNDERS and findings as well as patient management and he will be admitted for further observation and care. <Anca Jaquez, DO - Last Filed: 10/15/24 23:00> Vital Signs: 10/15/24 16:12 10/15/24 16:54 10/15/24 18:20 Temperature 98.0 F Temperature Source Oral Pulse Rate 66 68 Pulse Rate [Right] 61 Respiratory Rate 18 Blood Pressure 130/72 104/67 L Blood Pressure [Right Arm] 129/76 Blood Pressure Mean [Right Arm] 93 Blood Pressure Source Blood Pressure Source [Right Arm] Automatic Cuff Blood Pressure Position Blood Pressure Position [Right Arm] Sitting 02 Sat by Pulse Oximetry 98 96 95 Oxygen Delivery Method Room Air Room Air 10/15/24 18:25 Temperature 98.2 F Temperature Source Oral Pulse Rate 70 Pulse Rate [Right] Respiratory Rate 18 Blood Pressure 104/67 L Blood Pressure [Right Arm] Blood Pressure Mean [Right Arm] Blood Pressure Source Automatic Cuff Blood Pressure Source [Right Arm] Blood Pressure Position Supine Blood Pressure Position [Right Arm] 02 Sat by Pulse Oximetry Oxygen Delivery Method Room Air Lab Data Lab Results 10/15/24 16:25: WBC 4.5 L, RBC 4.78, Hgb 15.0, Hct 44.1, MCV 92.3, MCH 31.4 H, MCHC 34.0, RDW 13.1, Plt Count 185, MPV 10.1, Neut % (Auto) 50.9, Lymph % (Auto) 35.4, Holmes % (Auto) 8.6, Eos % (Auto) 3.8, Baso % (Auto) 0.9, Neut # (Auto) 2.3, Lymph # (Auto) 1.6, Holmes # (Auto) 0.4, Eos # (Auto) 0.2, Baso # (Auto) 0.0, PT 11.4, INR 1.02, APTT 26.6, Sodium 139, Potassium 3.6, Chloride 105, Carbon Dioxide 26, Anion Gap 11.6, BUN 10, Creatinine 0.80, Estimated Creat Clear 87, Estimated GFR 97, Est GFR ( Amer) 118, Glucose 146 H, Hemoglobin A1c 5.3, Calcium 8.8, Total Bilirubin 0.7, AST 32, ALT 25, Alkaline Phosphatase 100, Troponin I < 0.01, NT-Pro-B Natriuret Pep 21.8, Total Protein 6.9, Albumin 4.4, Globulin 2.5, Albumin/Globulin Ratio 1.8, Triglycerides 187 H, Cholesterol 130 L , LDL Cholesterol Direct 64.96 L, VLDL Cholesterol 37, HDL Cholesterol 39 L, Cholesterol/HDL Ratio 3.3, TSH 3.32, Plasma/Serum Alcohol < 10 10/15/24 17:05: SARS-CoV-2 (PCR) Not detected, Influenza A Untype (PCR) Not detected, Influenza Type B (PCR) Not detected Orders (Tests/Meds): ED MEDICATIONS Generic Name Dose Route Start Last Admin Trade Name Freq PRN Reason Stop Dose Admin Aspirin 81 mg 10/16/24 09:00 Aspirin Ec 81mg Tablet PO 11/15/24 08:59 DAILY [facility] Aspirin 325 mg 10/15/24 18:14 10/15/24 18:41 Aspirin 325mg Tablet PO 10/15/24 18:15 325 mg ONCE ONE Administration Atorvastatin Calcium 80 mg 10/15/24 21:00 10/15/24 20:09 Atorvastatin 40mg Tablet PO 11/14/24 20:59 80 mg HS GERARD Administration Clopidogrel Bisulfate 75 mg 10/16/24 09:00 Clopidogrel 75mg Tab PO 11/15/24 08:59 DAILY [facility] Empagliflozin 25 mg 10/16/24 09:00 Empagliflozin 25mg Tablet PO 11/15/24 08:59 DAILY [facility] Enoxaparin Sodium 40 mg 10/15/24 18:13 10/15/24 18:41 Enoxaparin 40mg/0.4ml Syringe SUBCUT 10/15/24 18:14 40 mg ONCE ONE Administration Gabapentin 600 mg 10/16/24 09:00 Gabapentin 600mg Tablet PO 11/15/24 08:59 TID [facility] Insulin Human Lispro 0 unit 10/16/24 06:00 Humalog 100 Units/Ml 10ml Vial (Ssi) SUBCUT 11/15/24 05:59 ACHS [facility] Protocol Miscellaneous 1 each 10/15/24 18:11 Consider Pt For Statin At Discharge-Stroke NOTAPPLIC 11/14/24 18:10 NEEDED PRN Reminder for med @discharge Non-Formulary Medication 5 ml 10/15/24 21:43 Alum-Mag Hydroxide-Simeth [Maalox Maximum Strength] PO Q6H PRN indigestion Non-Formulary Medication 500 mg 10/16/24 09:00 Divalproex PO 11/15/24 08:59 BID GERARD Non-Formulary Medication 0.375 gm 10/16/24 09:00 Mesalamine PO 11/15/24 08:59 DAILY G[facility]ARD Non-Formulary Medication 10 mg 10/16/24 09:00 Propranolol PO 11/15/24 08:59 BID GERARD Sodium Chloride 10 ml 10/15/24 16:55 Sodium Chloride 0.9% 10ml Syr (Rad Only) IV 11/14/24 16:54 NEEDED PRN Maintain IV Site Tamsulosin HCl 0.4 mg 10/16/24 09:00 Tamsulosin 0.4mg Capsule PO 11/15/24 08:59 DAILY [facility] Discontinued Medications Generic Name Dose Route Start Last Admin Trade Name Freq PRN Reason Stop Dose Admin Acetaminophen 1,000 mg 10/15/24 17:45 10/15/24 18:18 Acetaminophen 500mg Tab PO 10/15/24 17:46 1,000 mg ONCE ONE Administration Dexamethasone Sodium Phosphate 10 mg 10/15/24 17:45 10/15/24 18:16 Dexamethasone 4mg/Ml 5ml Mdv IV 10/15/24 17:46 10 mg ONCE ONE Administration Iopamidol 160 ml 10/15/24 16:55 10/15/24 18:37 Iopamidol-370 (76%);100ml Bottle IV 10/15/24 16:56 Not Given ONCE ONE Ketorolac Tromethamine 15 mg 10/15/24 17:45 10/15/24 18:17 Ketorolac 30mg/Ml Vial IV 10/15/24 17:46 15 mg ONCE ONE Administration Methocarbamol 500 mg 10/15/24 17:45 10/15/24 18:17 Methocarbamol 500mg Tablet PO 10/15/24 17:46 500 mg ONCE ONE Administration Ondansetron HCl 4 mg 10/15/24 17:45 10/15/24 18:16 Ondansetron 4mg/2ml Vial IV 10/15/24 17:46 4 mg ONCE ONE Administration Sodium Chloride 100 ml 10/15/24 16:55 10/15/24 18:37 0.9 % Sodium Chloride 50 Ml Vial IV 10/15/24 16:56 Not Given ONCE ONE ORDERS Category Date Time Status CT angio chest PE protocol Stat Cat Scan 10/15/24 16:[address] angio head Stat Cat Scan 10/15/24 16:[address] angio neck Stat Cat Scan 10/15/24 16:[address] head/brain wo con Stat Cat Scan 10/15/24 16:51 Completed Blood alcohol [Ethyl Alcohol] Stat Lab 10/15/24 16:25 Completed Complete Blood Count Auto Diff AMLAB Lab 10/16/24 06:00 Ordered Complete Blood Count Auto Diff Stat Lab 10/15/24 16:25 Completed Comprehensive Metabolic Panel AMLAB Lab 10/16/24 06:00 Ordered Comprehensive Metabolic Panel Stat Lab 10/15/24 16:25 Completed Hemoglobin A1C Stat Lab 10/15/24 16:25 Completed Lipid Panel Stat Lab 10/15/24 16:25 Completed Magnesium AMLAB Lab 10/16/24 06:00 Ordered NT Pro Brain Natriuretic Pep. Stat Lab 10/15/24 16:25 Completed PTT [Activated Partial Thrombo Time] Stat Lab 10/15/24 16:25 Completed Prothrombin Time INR Stat Lab 10/15/24 16:25 Completed Rapid PCR Covid and Flu A/B Stat Lab 10/15/24 17:05 Completed TSH [Thyroid Stimulating Hormone] Stat Lab 10/15/24 16:25 Completed Troponin I Q3H Lab 10/15/24 16:25 Completed Troponin I Q3H Lab 10/15/24 20:10 Completed CA echo doppler complete Routine Y 10/15/24 18:15 Ordered ECG Data Tracing #1: I reviewed this ECG and interpreted as documented below: Sinus bradycardia with a ventricular rate of [address] changes concerning for ischemia. Normal intervals ECG initial impression date: 10/15/24 ECG initial impression time: 16:15 HEART Score HEART Score: 2 Critical Care <REGINA Alvarado - Last Filed: 10/15/24 22:46> Critical Care Time Critical Care Time: Yes Attestation: On 10/15/24, the high probability of a clinically significant, sudden or life threatening deterioration of the following system(s) required my full and direct attention, intervention and personal management. The time I documented below is in addition to time spent performing reported procedures but includes the following listed in this critical care notation. Total Time Total Critical Care Time: 35
--- NOTE | 2024-10-15 16:49 | PC.NURSE ---
lab notified that pt labs need to be run as a stroke alert
--- NOTE | 2024-10-15 16:50 | PC.NURSE ---
Maximo Bey would like a Stroke Alert paged d/t LLE weakness & L facial droop Pageg CVA alert at [id number]
--- NOTE | 2024-10-15 16:51 | CT_ITS ---
PROCEDURE INFORMATION: Exam: CT Head Without Contrast Exam date and time: 10/15/2024 3:55 PM Age: 64 years old Clinical indication: Stroke-like symptoms; Left facial droop; Additional info: Stroke, L face numb TECHNIQUE: Imaging protocol: Computed tomography of the head without contrast. Radiation optimization: All CT scans at this facility use at least one of these dose optimization techniques: automated exposure control; mA and/or kV adjustment per patient size (includes targeted exams where dose is matched to clinical indication); or iterative reconstruction. Other technique: STROKE PROTOCOL was implemented. COMPARISON: No relevant prior studies available. FINDINGS: Brain: Global cerebral volume loss. No acute intracranial hemorrhage. No intra- or extra-axial fluid collection. No mass effect or midline shift. No evidence of acute/subacute vascular territory infarct. Periventricular and subcortical white matter hypodensities compatible with chronic hypertensive microvascular disease. Cerebral ventricles: No hydrocephalus. Paranasal sinuses: No air fluid levels in the visualized paranasal sinuses. Mastoid air cells: Visualized mastoid air cells are clear. Bones: No evidence of acute calvarial or skull base fracture. Soft tissues: Unremarkable. IMPRESSION: 1. No evidence of acute intracranial hemorrhage or acute/subacute vascular territory infarct. 2. White matter changes compatible with chronic hypertensive microvascular disease. 3. Global cerebral volume loss. ASSESSMENT: ASPECTS ([place] Stroke Program Early CT Score) is 10.
--- NOTE | 2024-10-15 16:51 | CT_ITS ---
PROCEDURE INFORMATION: Exam: CTA Head With Contrast, Arteriography Exam date and time: 10/15/2024 3:57 PM Age: 64 years old Clinical indication: Stroke-like symptoms; Left facial droop; Additional info: Stroke, L face numb TECHNIQUE: Imaging protocol: Computed tomographic angiography of the head with contrast. Exam focused on the arteries. 3D rendering (Not supervised by radiologist): MIP and/or 3D reconstructed images were created by the technologist. Radiation optimization: All CT scans at this facility use at least one of these dose optimization techniques: automated exposure control; mA and/or kV adjustment per patient size (includes targeted exams where dose is matched to clinical indication); or iterative reconstruction. Contrast material: ISOVUE 370; Contrast volume: 80 ml; Contrast route: INTRAVENOUS (IV); COMPARISON: CT HEAD/BRAIN WO CON 10/15/2024 3:55 PM FINDINGS: ANTERIOR CIRCULATION: Right internal carotid artery: Intracranial segment is patent with no significant stenosis. No aneurysm. Right middle cerebral artery: No occlusion or significant stenosis. No aneurysm. Right anterior cerebral artery: No occlusion or significant stenosis. No aneurysm. Left internal carotid artery: Intracranial segment is patent with no significant stenosis. No aneurysm. Left middle cerebral artery: No occlusion or significant stenosis. No aneurysm. Left anterior cerebral artery: No occlusion or significant stenosis. No aneurysm. POSTERIOR CIRCULATION: Right vertebral artery: Moderate (50-69%) stenosis in the mid V4 segment of the right vertebral artery. Left vertebral artery: Severe (70-99%) focal stenosis in the distal V4 segment of the left vertebral artery. Basilar artery: Mild (less than 50%) stenosis in the proximal basilar artery. Right posterior cerebral artery: No occlusion or significant stenosis. No aneurysm. Left posterior cerebral artery: No occlusion or significant stenosis. No aneurysm. Right posterior communicating artery: Right posterior communicating artery is patent. Left posterior communicating artery: Left posterior communicating artery is patent. Brain: No abnormally enhancing brain lesion, mass effect, or midline shift. Cerebral ventricles: No hydrocephalus. Bones/joints: No acute calvarial or skull base fracture. Soft tissues: Unremarkable. IMPRESSION: 1. No evidence of large vessel occlusion in the intracranial cerebral arteries. 2. Severe (70-99%) focal stenosis in the distal V4 segment of the left vertebral artery and moderate (50-69%) stenosis in the mid V4 segment of the right vertebral artery. Of note, the [id number] is complete with patent anterior and posterior communicating arteries and no significant stenoses in the anterior circulation. 3. Mild (less than 50%) stenosis in the proximal basilar artery. 4. Concurrent neck CTA reported separately. PROCEDURE INFORMATION: Exam: CT Maxillofacial With Contrast Exam date and time: 10/15/2024 3:57 PM Age: 64 years old Clinical indication: Stroke-like symptoms; Left facial droop; Additional info: Stroke, L face numb TECHNIQUE: Imaging protocol: Computed tomography of the face with contrast. Radiation optimization: All CT scans at this facility use at least one of these dose optimization techniques: automated exposure control; mA and/or kV adjustment per patient size (includes targeted exams where dose is matched to clinical indication); or iterative reconstruction. COMPARISON: CT HEAD/BRAIN WO CON 10/15/2024 3:55 PM FINDINGS: Paranasal sinuses: Mucosal thickening in the paranasal sinuses with frothy fluid in the right sphenoid sinus compatible with sinusitis. Orbital cavities: Bilateral lens replacement incidentally noted. Globes and orbital structures are otherwise unremarkable. Bones: No evidence of acute fracture. Bilateral temporomandibular joints are congruent. Pterygoid plates and lamina papyracea are intact. Soft tissues: Unremarkable. IMPRESSION: Mucosal thickening in the paranasal sinuses with frothy fluid in the right sphenoid sinus compatible with sinusitis.
--- NOTE | 2024-10-15 16:51 | CT_ITS ---
PROCEDURE INFORMATION: Exam: CTA Neck With Contrast Exam date and time: 10/15/2024 3:57 PM Age: 64 years old Clinical indication: Stroke-like symptoms; Left facial droop; Additional info: Stroke, L face numb TECHNIQUE: Imaging protocol: Computed tomographic angiography of the neck with contrast. Exam focused on the cervical segments of the vasculature. 3D rendering (Not supervised by radiologist): MIP and/or 3D reconstructed images were created by the technologist. Radiation optimization: All CT scans at this facility use at least one of these dose optimization techniques: automated exposure control; mA and/or kV adjustment per patient size (includes targeted exams where dose is matched to clinical indication); or iterative reconstruction. Contrast material: ISOVUE 370; Contrast volume: 80 ml; Contrast route: INTRAVENOUS (IV); COMPARISON: CT HEAD/BRAIN WO CON 10/15/2024 3:55 PM FINDINGS: Right common carotid artery: No stenosis. No dissection or occlusion. Right internal carotid artery: No stenosis of the extracranial segment. No dissection or occlusion. Right external carotid artery: No occlusion or stenosis of the origin. Left common carotid artery: No stenosis. No dissection or occlusion. Left internal carotid artery: No stenosis of the extra-cranial segment. No dissection or occlusion. Left external carotid artery: No occlusion or stenosis of the origin. Right vertebral artery: No stenosis. No dissection or occlusion. Left vertebral artery: No stenosis. No dissection or occlusion. Soft tissues: Unremarkable. Bones/joints: Multi-level degenerative changes in the cervical spine result in varying degrees of mild to moderate neuroforaminal narrowing, most prominent on the right at C5-C6 and C6-C7. No evidence of acute osseous abnormality. IMPRESSION: 1. No evidence of occlusion, significant stenosis, dissection or aneurysm in the extracranial cerebral arteries. 2. Multi-level degenerative changes in the cervical spine, as above. 3. Concurrent head CTA reported separately. REFERENCES: NASCET CRITERIA. The degree of stenosis in the cervical segment of the internal carotid artery is based on NASCET criteria. Normal is no stenosis. Mild is less than 50% stenosis. Moderate is 50-69% stenosis. Severe is 70% to 99% stenosis. Total occlusion is no detectable patent lumen.
--- NOTE | 2024-10-15 16:51 | CT_ITS ---
PROCEDURE INFORMATION: Exam: CTA Chest With Contrast Exam date and time: 10/15/2024 4:04 PM Age: 64 years old Clinical indication: Pain; Chest pressure; Additional info: Chest pain, L arm pain, L facial numbness, vision TECHNIQUE: Imaging protocol: Computed tomographic angiography of the chest with contrast. Exam focused on the arteries. 3D rendering (Not supervised by radiologist): MIP and/or 3D reconstructed images were created by the technologist. Radiation optimization: All CT scans at this facility use at least one of these dose optimization techniques: automated exposure control; mA and/or kV adjustment per patient size (includes targeted exams where dose is matched to clinical indication); or iterative reconstruction. Contrast material: ISOVUE 370; Contrast volume: 80 ml; Contrast route: INTRAVENOUS (IV); COMPARISON: CT ANGIO NECK 10/15/2024 3:57 PM FINDINGS: Pulmonary arteries: No pulmonary emboli. Aorta: Unremarkable. No aortic aneurysm. No aortic dissection. Lungs: Unremarkable. No consolidation. No masses. Pleural spaces: Unremarkable. No pneumothorax. No pleural effusion. Heart: Unremarkable. No cardiomegaly. No pericardial effusion. Lymph nodes: Calcified hilar lymph nodes without lymphadenopathy. Bones/joints: Unremarkable. No acute fracture. Soft tissues: Unremarkable. IMPRESSION: No acute findings.
--- NOTE | 2024-10-15 16:51 | PC.NURSE ---
GLUCOSE IS 122
[2024-10-15 16:53] LABS: Basophils % 0.9 % (0.1-2.0); Eosinophils # 0.2 K/mm3 (0.0-0.4); Eosinophils % 3.8 % (0.1-12.0); Hematocrit 44.1 % (42.0-52.0); Lymphocytes # 1.6 K/mm3 (0.7-4.5); Lymphocytes % 35.4 % (10-50); Mean Corpuscular Hemoglobin 31.4 pg (27.0-31.2); Mean Corpuscular Volume 92.3 fl (80-94); Mean Platelet Volume 10.1 fl (7.4-10.4); Monocytes # 0.4 K/mm3 (0.1-1.0); Monocytes % 8.6 % (1.7-9.3); Neutrophils # 2.3 K/mm3 (1.8-7.8); Neutrophils % 50.9 % (37.0-80.0); Platelet Count 185 K/mm3 (142-424); Red Blood Count 4.78 M/mm3 (4.60-6.20); Red Cell Distribution Width 13.1 % (11.5-17.5); White Blood Count 4.5 K/mm3 (4.8-10.8)
--- NOTE | 2024-10-15 16:53 | PC.NURSE ---
PT GONE TO CT VIA STRETCHER
[2024-10-15 16:54] VITALS: BP 130/72; PULSE 66; O2SAT 96
[2024-10-15 16:56] LABS: Albumin Level 4.4 g/dl (3.5-5.0); Chloride 105 mmol/L (98-107); Potassium 3.6 mmoL/L (3.5-5.1); Sodium 139 mmol/L (136-145)
[2024-10-15 16:59] LABS: Alanine Aminotransferase 25 U/L (12-78); Albumin/Globulin Ratio 1.8 (1.1-1.8); Alkaline Phosphatase 100 U/L (38-126); Anion Gap 11.6 mEq/L (5-15); Aspartate Amino Transferase 32 U/L (17-59); Bilirubin,Total 0.7 mg/dl (0.2-1.3); Blood Urea Nitrogen 10 mg/dl (9-20); Carbon Dioxide 26 mmol/L (22.0-30.0); Creatinine Clearance Estimated 87 mL/min (50-200); Estimated Glomerular Filt Rate 97 ml/min (>60); GFR (African American) 118 ML/MIN (>60); Globulin 2.5 g/dL (1.3-3.2); Total Protein,Serum 6.9 g/dl (6.3-8.2)
[2024-10-15 17:00] LABS: Calcium 8.8 mg/dl (8.4-10.2); Glucose 146 mg/dl (74-100)
--- NOTE | 2024-10-15 17:02 | HMH.ITSTN ---
GFR results overrode by ED physician on risk vs benefit situation
[2024-10-15 17:06] LABS: Activated Partial Thrombo Time 26.6 seconds (22.8-30.6); INR 1.02 (0.9-1.1); Prothrombin Time 11.4 seconds (10.1-12.5)
--- NOTE | 2024-10-15 17:07 | PC.NURSE ---
REGINA ABERNATHY SPEAKING WITH LAB REGARDING PT LABS
[2024-10-15 17:10] LABS: NT Pro Brain Natriuretic Pep. 21.8 pg/mL (0-125)
[2024-10-15 17:12] LABS: Coronavirus 19, PCR Not Detected (NotDetected); Influenza A, PCR Not Detected (NotDetected); Influenza B, PCR Not Detected (NotDetected)
[2024-10-15 17:17] LABS: Troponin I < 0.01 ng/ml (0.00-0.034)
[2024-10-15 18:10] LABS: Chol/HDL Ratio 3.3 (1-3.5); Cholesterol 130 mg/dl (140-200); Direct LDL Cholesterol 64.96 mg/dL (100-129); HDL Cholesterol 39 mg/dl (40-60); Triglycerides 187 mg/dl (30-150); VLDL Cholesterol 37 mg/dL (0-40)
[2024-10-15 18:12] LABS: Ethyl Alcohol < 10 mg/dl (0-10)
--- NOTE | 2024-10-15 18:13 | PC.NURSE ---
HS aware of admission
[2024-10-15] MEDS: ONDANSETRON 4MG/2ML VIAL 4 MG IV (18:16)
[2024-10-15] MEDS: DEXAMETHASONE 4MG/ML 5ML MDV 10 MG IV (18:16)
--- NOTE | 2024-10-15 18:16 | EXP.HP ---
History of Present Illness *Admission Date: 10/15/24 *Reason for visit:: Left arm weakness and left facial tingling *History of present illness: Mr. Mata is a 64-year-old male with history of diabetes, GERD, depression, hypertension who presented with complaint of left arm pain and discomfort along with some weakness that began yesterday. Today he developed discomfort in his left upper chest as well as numbness/tingling in the left side of his face and neck. Symptoms began around noon today in the face. Denies fever, cough, shortness of breath. No pain with exertion. The weakness in his arm concerned him and so he came in for evaluation. Denies any significant change in vision. No headache. No confusion. Workup in the ER relatively unremarkable. Troponins negative. EKG normal. CT of head with no acute findings. Given strokelike symptoms, medicine consulted for admission and further workup. After arriving to the floor, patient is alert and oriented x 4. Comfortable on room air. Answers questions appropriately. Very minor strength deficit on left side compared to right. No cranial nerve deficits appreciable on exam. [facility] Disclaimer: The information contained in this section may have been updated after the patient was seen, as this information can be updated by other users. Medical History (Updated 10/15/24 @ 19:04 by Zulema Julian RN) Left wrist amputee GERD (gastroesophageal reflux disease) Depression Anxiety Diabetes mellitus, type 2 Hyperlipidemia Hypertension Surgical History (Updated 10/15/24 @ 19:04 by Zulema Julian RN) H/O left wrist surgery Hx of cataract surgery History of cholecystectomy History of hip replacement Family History Tuberculosis Grandfather Diabetes Sister Brother Cancer Mother Hypertension Brother Mother Sister Brother Asthma Brother Social History (Updated 10/15/24 @ 18:53 by Zulema Julian RN) Smoking Status: Never smoker second hand exposure: No alcohol intake: never substance use type: denies use current occupational status: unemployed Travel in the last 8 weeks: None lives independently: No marital status: Have you lived/traveled outside [place] in past 30 days?: No Contact w/someone who lives/traveled outside [place] past 30 days?: No Exposure to someone with infectious disease in past 14 days?: No Do you have a fever (greater than 100.4 F or 38 C)?: No Have you tested positive for COVID-19: No Exposed to someone with COVID-19 in past 14 days?: No Do you have a sore throat?: No Do you have a cough?: No Do you have any weakness?: No Are you experiencing any nausea/vomitting?: No Do you have any diarrhea?: No Are you experiencing any unusual bleeding?: No Do you have any muscle aches/pain?: No Do you have any abdominal pain?: No Are you experiencing loss of taste or smell?: No Review of Systems Review of Systems Review of systems (narrative): 14 point review of systems performed, pertinent positives and negatives as per HPI Meds Home Medications and Allergies Home Medications ?Medication ?Instructions ?Recorded ?Confirmed ?Type amlodipine 5 mg tablet 5 mg PO DAILY 05/29/24 10/15/24 History atorvastatin 20 mg tablet 20 mg PO DAILY 05/29/24 10/15/24 History empagliflozin 25 mg tablet 25 mg PO DAILY 05/29/24 10/15/24 History (Jardiance) gabapentin 600 mg tablet 600 mg PO TID 05/29/24 10/15/24 History mesalamine 0.375 gram 0.375 g PO DAILY 05/29/24 10/15/24 History capsule,extended release 24 hr ondansetron 4 mg disintegrating 4 mg PO Q8H PRN nausea and 05/29/24 10/15/24 Rx tablet vomiting #10 tabs semaglutide 0.25 mg or 0.5 mg (2 0.25 mg SQ WEEKLY 05/29/24 10/15/24 History mg/3 mL) subcutaneous pen injector (Ozempic) ketorolac 10 mg tablet 10 mg PO Q8H PRN pain 5 days #15 07/13/24 10/15/24 Rx tabs oxycodone 5 mg tablet 5 mg PO Q8H PRN pain 3 days #9 tabs 07/13/24 10/15/24 Rx tamsulosin 0.4 mg capsule (Flomax) 0.4 mg PO DAILY 14 days #14 caps 07/13/24 10/15/24 Rx aluminum-mag hydroxide-simethicone 5 ml PO Q6H PRN indigestion #3,000 09/13/24 10/15/24 Rx 400 mg-400 mg-40 mg/5 mL oral susp mL (Maalox Maximum Strength) divalproex 500 mg tablet,extended 500 mg PO BID 10/15/24 10/15/24 History release 24 hr propranolol 10 mg tablet 10 mg PO BID 10/15/24 10/15/24 History New Prescriptions to Start Prescriptions: Allergies Allergy/AdvReac Type Severity Reaction Status Date / Time prednisone Allergy Mild Other Verified 10/15/24 16:12 levofloxacin (From Levaquin) Allergy Other Verified 10/15/24 16:12 lithium Allergy Other Verified 10/15/24 16:12 metronidazole (From Flagyl) Allergy Other Verified 10/15/24 16:12 mometasone furoate (From Allergy Other Verified 10/15/24 16:12 Asmanex Twisthaler) montelukast (From Singulair) Allergy Other Verified 10/15/24 16:12 Exam Data for Last 24 hours Vital signs and Labs for Last 24 Hours: Temp Pulse Resp BP Pulse Ox O2 Del Method 98.0 F 66 18 130/72 96 Room Air 10/15/24 16:12 10/15/24 16:54 10/15/24 16:12 10/15/24 16:54 10/15/24 16:54 10/15/24 16:54 Laboratory Results - last 24 hr 10/15/24 16:25: WBC 4.5 L, RBC 4.78, Hgb 15.0, Hct 44.1, MCV 92.3, MCH 31.4 H, MCHC 34.0, RDW 13.1, Plt Count 185, MPV 10.1, Neut % (Auto) 50.9, Lymph % (Auto) 35.4, [place] % (Auto) 8.6, Eos % (Auto) 3.8, Baso % (Auto) 0.9, Neut # (Auto) 2.3, Lymph # (Auto) 1.6, [place] # (Auto) 0.4, Eos # (Auto) 0.2, Baso # (Auto) 0.0, PT 11.4, INR 1.02, APTT 26.6, Sodium 139, Potassium 3.6, Chloride 105, Carbon Dioxide 26, Anion Gap 11.6, BUN 10, Creatinine 0.80, Estimated Creat Clear 87, Estimated GFR 97, Est GFR ( Amer) 118, Glucose 146 H, Calcium 8.8, Total Bilirubin 0.7, AST 32, ALT 25, Alkaline Phosphatase 100, Troponin I < 0.01, NT-Pro-B Natriuret Pep 21.8, Total Protein 6.9, Albumin 4.4, Globulin 2.5, Albumin/Globulin Ratio 1.8, Triglycerides 187 H, Cholesterol 130 L, LDL Cholesterol Direct 64.96 L, VLDL Cholesterol 37, HDL Cholesterol 39 L, Cholesterol/HDL Ratio 3.3, Plasma/Serum Alcohol < 10 10/15/24 17:05: SARS-CoV-2 (PCR) Not detected, Influenza A Untype (PCR) Not detected, Influenza Type B (PCR) Not detected I & O for Last 24 hours: Intake & Output 10/12/24 10/13/24 10/15/24 10/15/24 23:59 23:59 00:59 23:59 Weight 82.554 kg Constitutional Constitutional: no acute distress, obese and cooperative *Routine HEENT Exam Head: Present normocephalic and atraumatic Eye: Present EOMI and PERRL ENT: Present mucous membranes moist *Routine Neck Exam Neck: Present supple; Absent lymphadenopathy *Routine Respiratory Exam Respiratory: Present CTA bilaterally; Absent rhonchi, wheezes or crackles *Routine Cardiovascular Exam Cardiovascular: Present RRR *Routine Abdominal Exam Abdominal: Present soft and normoactive bowel sounds; Absent tenderness *Routine Rectal Exam Rectal:: deferred *Routine Genitalia Exam Genitalia:: deferred *Routine Extremities Exam Extremities: Absent cyanosis, clubbing or edema *Routine Skin Exam Skin: Present warm; Absent rash *Routine Neurological Exam Neurological: Present alert, oriented X3, CN II-XII intact and moving all extremities; Absent altered mental status Comments: Strength ever so slightly less in left hand and arm than right. With arms extended out front and palms up, left hand drifted down with eyes closed. Assessment and Plan *Assessment and plan (1) Stroke-like symptoms: Status: Acute Category: Medical Code(s): R29.90 - Unspecified symptoms and signs involving the nervous system (2) Diabetes mellitus: Status: Acute Category: Medical Code(s): E11.9 - Type 2 diabetes mellitus without complications (3) GERD with esophagitis: Status: Acute Category: Medical Code(s): K21.00 - Gastro-esophageal reflux disease with esophagitis, without bleeding (4) Depression: Status: Acute Category: Medical Code(s): F32.A - Depression, unspecified (5) Hypertension: Status: Acute Category: Medical Code(s): I10 - Essential (primary) hypertension (6) Hyperlipidemia: Status: Acute Category: Medical Code(s): E78.5 - Hyperlipidemia, unspecified (7) BPH (benign prostatic hyperplasia): Status: Acute Category: Medical Code(s): N40.0 - Benign prostatic hyperplasia without lower urinary tract symptoms Plan 64-year-old male with history of diabetes and BPH. Presented with left-sided facial numbness and left arm weakness. Symptoms began the day before presentation. Outside window for treatment. CT negative in the ER. Discussed case with ER physician, request admission for MRI and further workup along with medical management/optimization. I agreed to admit for further care. Minimal symptoms at time of admission. Hemodynamically stable on room air. Problems addressed as follows: Seizure-like episode Left facial paresthesia -CTA of head and neck and CT of head obtained with no LVO or acute findings per my review. Does have some chronic changes and some mild volume loss. - Initiate Plavix 75 mg daily, loaded with aspirin 325 mg once, will continue 81 mg daily. Continue DAPT therapy for 21 days, aspirin therapy thereafter. Increase Lipitor to 80 mg nightly -LDL 64. A1c 5.3 as below. TSH normal at 3.3. Remainder of CBC and CMP nonactionable with normal kidney function. -Allow for permissive hypertension with blood pressure up to 180/110. Holding home blood pressure regimen at this time. -Proceed with MRI in the morning. Will also obtain echo to evaluate heart function and for possible shunt. Diabetes: A1c well-controlled at 5.3, on Jardiance 25 mg to and Ozempic for glucose control. Will do sliding scale insulin and fingersticks ACHS during admission, resume home regimen at discharge BPH: Continue tamsulosin 0.4 mg daily Neuropathy: Continue gabapentin 600 mg 3 times a day Mood disorder: Continue divalproex 500 mg twice daily Continue home mesalamine 0.375 g daily Full code Lovenox 40 mg subcu daily Diabetic diet
[2024-10-15] MEDS: KETOROLAC 30MG/ML VIAL 15 MG IV (18:17)
[2024-10-15] MEDS: METHOCARBAMOL 500MG TABLET 500 MG PO (18:17)
[2024-10-15] MEDS: ACETAMINOPHEN 500MG TAB 1000 MG PO (18:18)
[2024-10-15 18:20] VITALS: BP 104/67; PULSE 68; O2SAT 95
[2024-10-15 18:25] VITALS: BP 104/67; PULSE 70; RESP 18; TEMP 36.8; O2SAT 97
--- NOTE | 2024-10-15 18:34 | PC.NURSE ---
Addendum entered by Chantell Taylor RN 10/15/24 18:51: this occurred at 1634, not 1834 Original Note: Visitor at bedside
[2024-10-15] MEDS: ENOXAPARIN 40MG/0.4ML SYRINGE 40 MG SUBCUT (18:41)
[2024-10-15] MEDS: ASPIRIN 325MG TABLET 325 MG PO (18:41)
--- NOTE | 2024-10-15 18:42 | PC.NURSE ---
Addendum entered by Chantell Taylor RN 10/15/24 18:50: This occurred at 1642 not 1842 Original Note: Maximo TAPIA at bedside
[2024-10-15 18:56] VITALS: BP 134/78; PULSE 61; RESP 18; O2SAT 98; BMI 30.1
--- NOTE | 2024-10-15 19:12 | PC.NURSE ---
Per Dr Godoy, it is ok to not wake patient up between 10pm-6am so long as patient is in no obvious distress
[2024-10-15 19:46] LABS: Thyroid Stimulating Hormone 3.32 uIU/mL (0.465-4.68)
[2024-10-15 20:00] VITALS: BP 136/69; PULSE 63; RESP 17; TEMP 36.7; O2SAT 95
[2024-10-15] MEDS: ATORVASTATIN 40MG TABLET 80 MG PO (20:09)
[2024-10-15 20:42] LABS: Troponin I < 0.01 ng/ml (0.00-0.034)
[2024-10-15 21:17] LABS: Hemoglobin A1C 5.3 % (4.0-6.0)
--- NOTE | 2024-10-15 21:22 | PC.NURSE ---
patient c/o left sided facial numbness but reports its no worse then earlier.
[2024-10-15 21:41] LABS: POC Glucose,Bedside 155 (70-110)
[2024-10-16] VITALS: BP 127/50; PULSE 62; RESP 17; TEMP 36.6; O2SAT 97
[2024-10-16 04:00] VITALS: BP 111/63; PULSE 62; RESP 16; TEMP 36.7; O2SAT 94
[2024-10-16 05:49] LABS: POC Glucose,Bedside 140 (70-110)
[2024-10-16 06:29] LABS: Basophils % 0.2 % (0.1-2.0); Eosinophils % 0.2 % (0.1-12.0); Hematocrit 43.6 % (42.0-52.0); Hemoglobin 14.8 g/dL (14.1-18.0); Lymphocytes # 0.8 K/mm3 (0.7-4.5); Lymphocytes % 12.3 % (10-50); Mean Corpuscular HGB Conc 33.9 g/dL (31.8-35.4); Mean Corpuscular Hemoglobin 30.6 pg (27.0-31.2); Mean Corpuscular Volume 90.1 fl (80-94); Mean Platelet Volume 10.4 fl (7.4-10.4); Monocytes # 0.2 K/mm3 (0.1-1.0); Monocytes % 2.3 % (1.7-9.3); Neutrophils # 5.4 K/mm3 (1.8-7.8); Neutrophils % 84.7 % (37.0-80.0); Platelet Count 170 K/mm3 (142-424); Red Blood Count 4.84 M/mm3 (4.60-6.20); Red Cell Distribution Width 12.6 % (11.5-17.5); White Blood Count 6.4 K/mm3 (4.8-10.8)
[2024-10-16 06:59] LABS: Alanine Aminotransferase 26 U/L (12-78); Albumin Level 4.2 g/dl (3.5-5.0); Albumin/Globulin Ratio 1.8 (1.1-1.8); Alkaline Phosphatase 69 U/L (38-126); Aspartate Amino Transferase 38 U/L (17-59); Bilirubin,Total 0.6 mg/dl (0.2-1.3); Blood Urea Nitrogen 15 mg/dl (9-20); Carbon Dioxide 20 mmol/L (22.0-30.0); Chloride 110 mmol/L (98-107); Creatinine Clearance Estimated 89 mL/min (50-200); Estimated Glomerular Filt Rate 114 ml/min (>60); GFR (African American) 137 ML/MIN (>60); Globulin 2.4 g/dL (1.3-3.2); Glucose 156 mg/dl (74-100); Magnesium 1.8 mg/dl (1.6-2.3); Sodium 139 mmol/L (136-145); Total Protein,Serum 6.6 g/dl (6.3-8.2)
[2024-10-16 07:21] VITALS: BP 129/74; PULSE 60; RESP 14; TEMP 36.3; O2SAT 97
--- NOTE | 2024-10-16 07:23 | MR_ITS ---
FINAL REPORT CLINICAL HISTORY: LEFT SIDED FACIAL DROOP, STROKE LIKE SX FINDINGS: Multi planar MR imaging was obtained through the brain without contrast. The midline structures appear intact. There is no evidence of Chiari malformation. On T2 and flair axial images the brain parenchyma is homogeneous. On diffusion-weighted images there is no evidence of restricted diffusion. There is mild cortical atrophy. Mild mucoperiosteal thickening is seen within the inferior right maxillary sinus. The seventh and eighth nerve root complexes are intact. IMPRESSION: No acute intracranial abnormality. Mild cortical atrophy. Chronic right maxillary sinusitis. Reviewed, Interpreted and Dictated by Sanjeev Sutton MD Transcribed by Sury Fofana Authenticated and . [facility]
[2024-10-16 08:00] VITALS: PULSE 60
[2024-10-16] MEDS: EMPAGLIFLOZIN 25MG TABLET 25 MG PO (09:29)
[2024-10-16] MEDS: CLOPIDOGREL 75MG TAB 75 MG PO (09:29)
[2024-10-16] MEDS: ASPIRIN EC 81MG TABLET 81 MG PO (09:30)
[2024-10-16] MEDS: GABAPENTIN 600MG TABLET 600 MG PO ×2 (09:30→12:07)
[2024-10-16] MEDS: DIVALPROEX 500MG (Delayed-Release) TABLET 500 MG PO (09:30)
[2024-10-16] MEDS: PROPRANOLOL 20MG TAB 10 MG PO (09:30)
[2024-10-16] MEDS: MAGNESIUM SULFATE IN WATER 2 GM/50 ML PIGGYBACK IV (09:31)
--- NOTE | 2024-10-16 10:39 | HMH.PTEV ---
Physical Therapy Evaluation Rehab PT IP Evaluation Start: 10/15/24 18:13 Freq: ONCE Status: Active Protocol: Document 10/16/24 10:33 SANTOSH (Rec: 10/16/24 10:39 SANTOSH [id number]) Subjective/History History History 64-year-old male with history of diabetes, GERD, depression, hypertension who presented with complaint of left arm pain and discomfort along with some weakness that began yesterday. Today he developed discomfort in his left upper chest as well as numbness/ tingling in the left side of his face and neck. Symptoms began around noon today in the face. Denies fever, cough, shortness of breath. No pain with exertion. The weakness in his arm concerned him and so he came in for evaluation. Denies any significant change in vision. No headache. No confusion. Workup in the ER relatively unremarkable. Troponins negative. EKG normal. CT of head with no acute findings. Given strokelike symptoms, medicine consulted for admission and further workup. Pt reports he lives with , 1-2 GABI the home, and he is generally independent with all mobility and ambulation without AD at baseline. Subjective Subjective Pt reports he continues to have mild L side face numbness and L UE weakness, but overall feels he is better than upon adm. He agrees to mobility assessment this am. [facility] How much help from another person do you currently need... Turning from your back to your side None while in a flat bed without using bedrails? Moving from lying on back to sitting on None the side of a flat bed without using bedrails? Moving to and from a bed to a chair ( None including a wheelchair)? Standing up from a chair using your arms None ? (e.g., wheelchair, bedside chair) Walking in hospital room? None Climbing 3-5 steps with a railing? None Mobility Score 24 Mobility Level [facility] Mobility Calculator Mobility 8 Walk 250 feet or more Rehab PT IP Eval Objective Appearance Patient Behavior Appropriate Patient Orientation Person,Place,Time Difficulty following instructions none Speech Pattern Clear Ambulation Patient Able to Ambulate Yes Ambulation Observation IP General Gait Pattern Observation No Deviations/Normal Ambulation Distance (feet) 200 Ambulation Assistive Device None Ambulation Ability Independent Balance Ability to Arise Able, uses arms to help Sitting Balance Steady, safe Standing Balance Steady, wide stance Dynamic Sitting Balance Ability Good Dynamic Standing Balance Ability Good Transfers Bed Transfer Ability Independent Chair Transfer Ability Independent Sit to Stand Bed Transfer Ability Independent Sit to Stand Chair Transfer Ability Independent ROM All Extremities PT ROM Status WFL MMT All Extremities PT MMT WFL Abnormal MMT Grade except L 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 Rehab PT IP prob,goals,plan Problems Date of Evaluation: 10/16/24 Discharge Plan PT Discharge Plan Pt currently is appropriate to return home once medically stable for d/c. He may be a good candidate for outpatient occupational therapy if L hand weakness remains. No current inpatient acute therapy needs. Eval Complexity Eval Charge Codes 17206 - High Complexity PHYSICIAN CERTIFICATION: I certify the specified therapy services for Elliot Mata are required, authorized, and reviewed every 30 days.
[2024-10-16 10:47] LABS: POC Glucose,Bedside 150 (70-110)
[2024-10-16 11:36] VITALS: BP 116/68; PULSE 68; RESP 18; TEMP 36.6; O2SAT 95
--- NOTE | 2024-10-16 12:34 | SW/DCPLANNER ---
Spoke with patient about getting outpatient therapy. Patient agreed to do it with outpatient therapy in [place]. Patient asked that we get his appointments late in the day as possible. I spoke with the Dr and jd edwards consultant and told them patients request. Beth JUNE Annual Campaign Manager
--- NOTE | 2024-10-16 12:49 | P.DS_ITS ---
General Admission date:: 10/15/24 HPI HPI HPI: Mr. Mata is a 64-year-old male with history of diabetes, GERD, depression, hypertension who presented with complaint of left arm pain and discomfort along with some weakness that began yesterday. Today he developed discomfort in his left upper chest as well as numbness/tingling in the left side of his face and neck. Symptoms began around noon today in the face. Denies fever, cough, shortness of breath. No pain with exertion. The weakness in his arm concerned him and so he came in for evaluation. Denies any significant change in vision. No headache. No confusion. Workup in the ER relatively unremarkable. Troponins negative. EKG normal. CT of head with no acute findings. Given strokelike symptoms, medicine consulted for admission and further workup. After arriving to the floor, patient is alert and oriented x 4. Comfortable on room air. Answers questions appropriately. Very minor strength deficit on left side compared to right. No cranial nerve deficits appreciable on exam. Hospital Course Hospital Course Hospital Course: Elliot Mata is a 64-year-old male with a medical history significant for diabetes, hypertension who presented with left face/arm numbness and was admitted for stroke workup. #Left arm/leg weakness #Left face/arm numbness #Left neck pain #TIA vs muscle strain vs bulging/herniated disc ? Patient notes numbness and weakness began yesterday. No history of CVA, cardiac history. On my examination, patient has slight 4/5 motor deficit in left arm, leg. ? He also notes left-sided neck pain, denies any recent trauma or strenuous activity. ? CT head, CTA head/neck, MRI brain unremarkable for acute findings or large vessel occlusions. ? Neck CTA does show multilevel degenerative disc disease. ? Risk factors are well-managed, non-smoker, A1c 5.3, LDL 64, blood pressure normal. ? Symptoms may be from a TIA vs muscle strain vs bulging/herniated disc. ? Will treat with aspirin 81 mg, Plavix 75 mg for 19 more days for total of 21 days, then can discuss with PCP about monotherapy. Continue atorvastatin 20 mg. If symptoms do not get better, consider bulging/herniated disc. ? PT/OT consulted, referred to outpatient occupational therapy. #Hypertension ? Patient notes dizziness, especially with standing at home. ? Currently on amlodipine 5 mg, propranolol 10 mg twice daily. Will hold amlodipine, continue propranolol for tremors. ? Advised patient to keep a blood pressure log and follow-up with PCP. Diabetes: A1c well-controlled at 5.3, on Jardiance 25 mg to and Ozempic for glucose control. BPH: Continue tamsulosin 0.4 mg daily Neuropathy: Continue gabapentin 600 mg 3 times a day Mood disorder: Continue divalproex 500 mg twice daily Total time spent on discharge: 32 minutes on chart review, counseling, documentation, and direct care with patient. Exam Data for Last 24 hours Vital signs and Labs for Last 24 Hours: Temp Pulse Resp BP Pulse Ox O2 Del Method 97.8 F 68 18 116/68 95 Room Air 10/16/24 11:36 10/16/24 11:36 10/16/24 11:36 10/16/24 11:36 10/16/24 11:36 10/16/24 12:33 Laboratory Results - last 24 hr 10/15/24 16:25: WBC 4.5 L, RBC 4.78, Hgb 15.0, Hct 44.1, MCV 92.3, MCH 31.4 H, MCHC 34.0, RDW 13.1, Plt Count 185, MPV 10.1, Neut % (Auto) 50.9, Lymph % (Auto) 35.4, [place] % (Auto) 8.6, Eos % (Auto) 3.8, Baso % (Auto) 0.9, Neut # (Auto) 2.3, Lymph # (Auto) 1.6, [place] # (Auto) 0.4, Eos # (Auto) 0.2, Baso # (Auto) 0.0, PT 11.4, INR 1.02, APTT 26.6, Sodium 139, Potassium 3.6, Chloride 105, Carbon Dioxide 26, Anion Gap 11.6, BUN 10, Creatinine 0.80, Estimated Creat Clear 87, Estimated GFR 97, Est GFR ( Amer) 118, Glucose 146 H, Hemoglobin A1c 5.3, Calcium 8.8, Total Bilirubin 0.7, AST 32, ALT 25, Alkaline Phosphatase 100, Troponin I < 0.01, NT-Pro-B Natriuret Pep 21.8, Total Protein 6.9, Albumin 4.4, Globulin 2.5, Albumin/Globulin Ratio 1.8, Triglycerides 187 H, Cholesterol 130 L , LDL Cholesterol Direct 64.96 L, VLDL Cholesterol 37, HDL Cholesterol 39 L, Cholesterol/HDL Ratio 3.3, TSH 3.32, Plasma/Serum Alcohol < 10 10/15/24 17:05: SARS-CoV-2 (PCR) Not detected, Influenza A Untype (PCR) Not detected, Influenza Type B (PCR) Not detected 10/15/24 20:10: Troponin I < 0.01 10/15/24 21:34: POC Glucose 155 H 10/16/24 05:39: POC Glucose 140 H 10/16/24 06:08: WBC 6.4 D, RBC 4.84, Hgb 14.8, Hct 43.6, MCV 90.1, MCH 30.6, MCHC 33.9, RDW 12.6, Plt Count 170, MPV 10.4, Neut % (Auto) 84.7 H, Lymph % (Auto) 12.3, [place] % (Auto) 2.3, Eos % (Auto) 0.2, Baso % (Auto) 0.2, Neut # (Auto) 5.4, Lymph # (Auto) 0.8, [place] # (Auto) 0.2, Eos # (Auto) 0.0, Baso # (Auto) 0.0, Sodium 139, Potassium 4.0, Chloride 110 H, Carbon Dioxide 20 L, Anion Gap 13.0, BUN 15 D, Creatinine 0.70, Estimated Creat Clear 89, Estimated GFR 114, Est GFR ( Amer) 137, Glucose 156 H, Calcium 9.0, Magnesium 1.8, Total Bilirubin 0.6, AST 38, ALT 26, Alkaline Phosphatase 69, Total Protein 6.6, Albumin 4.2, Globulin 2.4, Albumin/Globulin Ratio 1.8 10/16/24 10:38: POC Glucose 150 H I & O for Last 24 hours: Intake & Output 10/13/24 10/15/24 10/15/24 10/16/24 23:59 00:59 23:59 23:59 Intake Total 240 / 240 250 / 250 Output Total 0 / 0 0 / 0 Balance 240 / 240 250 / 250 Weight 84.992 kg 84.731 kg Results Data Completed and Pending Labs on day of discharge: Labs from last 24 hours 10/16/24 10/16/2410/16/25 10:38 06:08 05:39 WBC 6.4 D RBC 4.84 Hgb 14.8 Hct 43.6 MCV 90.1 MCH 30.6 MCHC 33.9 RDW 12.6 Plt Count 170 MPV 10.4 Neut % (Auto) 84.7 H Lymph % (Auto) 12.3 [place] % (Auto) 2.3 Eos % (Auto) 0.2 Baso % (Auto) 0.2 Neut # (Auto) 5.4 Lymph # (Auto) 0.8 [place] # (Auto) 0.2 Eos # (Auto) 0.0 Baso # (Auto) 0.0 PT INR APTT Sodium 139 Potassium 4.0 Chloride 110 H Carbon Dioxide 20 L Anion Gap 13.0 BUN 15 D Creatinine 0.70 Estimated Creat Clear 89 Estimated GFR 114 Est GFR ( Amer) 137 Glucose 156 H POC Glucose 150 H 140 H Hemoglobin A1c Calcium 9.0 Magnesium 1.8 Total Bilirubin 0.6 AST 38 ALT 26 Alkaline Phosphatase 69 Troponin I NT-Pro-B Natriuret Pep Total Protein 6.6 Albumin 4.2 Globulin 2.4 Albumin/Globulin Ratio 1.8 Triglycerides Cholesterol LDL Cholesterol Direct VLDL Cholesterol HDL Cholesterol Cholesterol/HDL Ratio TSH Plasma/Serum Alcohol SARS-CoV-2 (PCR) Influenza A Untype (PCR) Influenza Type B (PCR) 10/15/24 10/15/24 10/15/24 21:34 20:10 17:05 WBC RBC Hgb Hct MCV MCH MCHC RDW Plt Count MPV Neut % (Auto) Lymph % (Auto) [place] % (Auto) Eos % (Auto) Baso % (Auto) Neut # (Auto) Lymph # (Auto) [place] # (Auto) Eos # (Auto) Baso # (Auto) PT INR APTT Sodium Potassium Chloride Carbon Dioxide Anion Gap BUN Creatinine Estimated Creat Clear Estimated GFR Est GFR ( Amer) Glucose POC Glucose 155 H Hemoglobin A1c Calcium Magnesium Total Bilirubin AST ALT Alkaline Phosphatase Troponin I < 0.01 NT-Pro-B Natriuret Pep Total Protein Albumin Globulin Albumin/Globulin Ratio Triglycerides Cholesterol LDL Cholesterol Direct VLDL Cholesterol HDL Cholesterol Cholesterol/HDL Ratio TSH Plasma/Serum Alcohol SARS-CoV-2 (PCR) Not detected Influenza A Untype (PCR) Not detected Influenza Type B (PCR) Not detected 03/10/25 16:25 WBC 4.5 L RBC 4.78 Hgb 15.0 Hct 44.1 MCV 92.3 MCH 31.4 H MCHC 34.0 RDW 13.1 Plt Count 185 MPV 10.1 Neut % (Auto) 50.9 Lymph % (Auto) 35.4 [place] % (Auto) 8.6 Eos % (Auto) 3.8 Baso % (Auto) 0.9 Neut # (Auto) 2.3 Lymph # (Auto) 1.6 [place] # (Auto) 0.4 Eos # (Auto) 0.2 Baso # (Auto) 0.0 PT 11.4 INR 1.02 APTT 26.6 Sodium 139 Potassium 3.6 Chloride 105 Carbon Dioxide 26 Anion Gap 11.6 BUN 10 Creatinine 0.80 Estimated Creat Clear 87 Estimated GFR 97 Est GFR ( Amer) 118 Glucose 146 H POC Glucose Hemoglobin A1c 5.3 Calcium 8.8 Magnesium Total Bilirubin 0.7 AST 32 ALT 25 Alkaline Phosphatase 100 Troponin I < 0.01 NT-Pro-B Natriuret Pep 21.8 Total Protein 6.9 Albumin 4.4 Globulin 2.5 Albumin/Globulin Ratio 1.8 Triglycerides 187 H Cholesterol 130 L LDL Cholesterol Direct 64.96 L VLDL Cholesterol 37 HDL Cholesterol 39 L Cholesterol/HDL Ratio 3.3 TSH 3.32 Plasma/Serum Alcohol < 10 SARS-CoV-2 (PCR) Influenza A Untype (PCR) Influenza Type B (PCR) DS: Diagnosis Discharge Diagnosis (1) Stroke-like symptoms: Status: Acute Code(s): R29.90 - Unspecified symptoms and signs involving the nervous system (2) Diabetes mellitus: Status: Acute Code(s): E11.9 - Type 2 diabetes mellitus without complications (3) GERD with esophagitis: Status: Acute Code(s): K21.00 - Gastro-esophageal reflux disease with esophagitis, without bleeding (4) Depression: Status: Acute Code(s): F32.A - Depression, unspecified (5) Hypertension: Status: Acute Code(s): I10 - Essential (primary) hypertension (6) Hyperlipidemia: Status: Acute Code(s): E78.5 - Hyperlipidemia, unspecified (7) BPH (benign prostatic hyperplasia): Status: Acute Code(s): N40.0 - Benign prostatic hyperplasia without lower urinary tract symptoms Meds Home Medications and Allergies Home Medications ?Medication ?Instructions ?Recorded ?Confirmed ?Type amlodipine 5 mg tablet 5 mg PO DAILY 05/29/24 10/15/24 History atorvastatin 20 mg tablet 20 mg PO HS 05/29/24 10/16/24 History empagliflozin 25 mg tablet 25 mg PO DAILY 05/29/24 10/15/24 History (Jardiance) gabapentin 600 mg tablet 600 mg PO TID 05/29/24 10/15/24 History mesalamine 0.375 gram 1.48 g PO DAILY 05/29/24 10/16/24 History capsule,extended release 24 hr semaglutide 0.25 mg or 0.5 mg (2 0.25 mg SQ WEEKLY 05/29/24 10/15/24 History mg/3 mL) subcutaneous pen injector (Ozempic) aluminum-mag hydroxide-simethicone 5 ml PO Q6H PRN indigestion #3,000 09/13/24 10/15/24 Rx 400 mg-400 mg-40 mg/5 mL oral susp mL (Maalox Maximum Strength) divalproex 500 mg tablet,extended 500 mg PO BID bipolar disease 10/15/24 10/15/24 History release 24 hr oxybutynin chloride 10 mg 10 mg PO DAILY 10/15/24 10/15/24 History tablet,extended release 24 hr pantoprazole 40 mg tablet,delayed 40 mg PO DAILY 10/15/24 10/15/24 History release propranolol 10 mg tablet 10 mg PO BID tremors 10/15/24 10/15/24 History ropinirole 2 mg tablet 2 mg PO HS 10/15/24 10/15/24 History tamsulosin 0.4 mg capsule 0.4 mg PO HS 10/15/24 10/16/24 History aspirin 81 mg tablet,delayed 81 mg PO DAILY 30 days #30 tabs 10/16/24 Rx release clopidogrel 75 mg tablet 75 mg PO DAILY 19 days #19 tabs 10/16/24 Rx New Prescriptions to Start Prescriptions: aspirin Scooter Pringle clopidogrel Scooter Pringle Allergies Allergy/AdvReac Type Severity Reaction Status Date / Time prednisone Allergy Mild Other Verified 10/15/24 16:12 levofloxacin (From Levaquin) Allergy Other Verified 10/15/24 16:12 lithium Allergy Other Verified 10/15/24 16:12 metronidazole (From Flagyl) Allergy Other Verified 10/15/24 16:12 mometasone furoate (From Allergy Other Verified 10/15/24 16:12 Asmanex Twisthaler) montelukast (From Singulair) Allergy Other Verified 10/15/24 16:12 Discharge Plan Disposition Patient Disposition: Home, Self-Care Condition: Fair Follow up Plan Follow up with: Consuelo Segundo APRN [Primary Care Provider] - 10/23/24 9:00 am Prescriptions/Medication Reconciliation: New clopidogrel 75 mg Tablet 75 mg PO DAILY 19 Days Qty: 19 0RF aspirin 81 mg Tablet,Delayed Release (Dr/Ec) 81 mg PO DAILY 30 Days Qty: 30 0RF Continued gabapentin 600 mg tablet 600 mg PO TID Patient Comments: TAKE ONE TABLET BY MOUTH THREE TIMES DAILY atorvastatin 20 mg tablet 20 mg PO HS Patient Comments: TAKE ONE TABLET BY MOUTH DAILY mesalamine 0.375 gram capsule,extended release 24hr 1.48 g PO DAILY Patient Comments: Take 4 capsules every day by oral route as directed for 90 days. Jardiance 25 mg tablet 25 mg PO DAILY Patient Comments: Take 1 tablet every day by oral route. Ozempic 0.25 mg or 0.5 mg (2 mg/3 mL) pen injector 0.25 mg SQ WEEKLY Patient Comments: INJECT 0.25 MG WEEKLY SUBCUTANEOUSLY FOR 30 DAYS alum-mag hydroxide-simeth [Maalox Maximum Strength] 400-400-40 mg/5 mL suspension 5 ml PO Q6H PRN (Reason: indigestion) Qty: 3000 0RF propranolol 10 mg tablet 10 mg PO BID Patient Comments: TAKE ONE TABLET BY MOUTH TWICE DAILY for tremors divalproex 500 mg tablet extended release 24 hr 500 mg PO BID Patient Comments: TAKE ONE TABLET BY MOUTH TWICE DAILY oxybutynin chloride 10 mg tablet extended release 24hr 10 mg PO DAILY Patient Comments: TAKE ONE TABLET BY MOUTH DAILY tamsulosin 0.4 mg capsule 0.4 mg PO HS Patient Comments: TAKE ONE CAPSULE BY MOUTH ONCE DAILY ropinirole 2 mg tablet 2 mg PO HS Patient Comments: TAKE ONE TABLET BY MOUTH NIGHTLY AT BEDTIME pantoprazole 40 mg tablet,delayed release (DR/EC) 40 mg PO DAILY Patient Comments: TAKE ONE TABLET BY MOUTH DAILY Held amlodipine 5 mg tablet 5 mg PO DAILY Hold Instructions: Resume on 10/23/24. Your blood pressures have been stable without this medication. Please check your blood pressures at home and follow- up with your PCP about restarting this medication. Patient Comments: TAKE ONE TABLET BY MOUTH DAILY Other Ambulatory Orders: Rehab Eval, OP (Routine) Timeframe: 2 Weeks Facility: [facility] - Location: Physical Therapy Ordered By: Scooter Pringle Problem Reconciliation Problems Reviewed?: Yes Patient Discharge Instructions Patient Instructions: Transient Ischemic Attack, High Triglycerides, High Blood Pressure, How to Prevent Falls Print Language: Arabic Providers Primary Care Provider: Consuelo Segundo Admit Provider: Marcelo Godoy Attending Provider: Marcelo Godoy
--- NOTE | 2024-10-16 18:15 | CA_ITS ---
APPROVED REPORT EXAM: Comprehensive 2D, Doppler, and color-flow Echocardiogram Chainstitch Felled Seam Operator: Sophy Cowan CRT Ht: 5 ft 6 in Wt: 182lbs BSA: 1.92 BP: 104/67 mmHg Indications: Atrial Fibrillation, Diabetes, Hyperlipidemia, Hypertension/HDD, Stoke like symptoms, cp, facial paresthesia Echo Enhancing Agent Indication: Rule out Shunt Agent(s) / Amount(s) Used: Agitated Saline 5 cc Comments: B/S performed 2D Dimensions LA Volume 18.90 mL LA Volume Index 9.60 mL/m2 (M/F) 16-34 M-Mode Dimensions RVDd 2.54 cm (0.9-2.6) LA Diam 2.64 cm (1.9-4.0) LVDd 4.47 cm (3.5-5.7) LVDs 2.43 cm (3.5-5.7) IVSd 1.21 cm (0.6-1.1) PWd 0.75 cm (0.6-1.1) EF (Teich) 77.10% FS 45.60% EDV (Teich) 91.00 mL ESV (Teich) 20.80 mL LV Diastology E Decel Time 227 (160-240 msec) E/A Ratio 0.98 MED A' 7.70 cm/s LAT A' 13.40 cm/s Aortic Valve AO Peak GR. 7.10 mmHg Mitral Valve MV A Velocity 95.0 (40-130 cm/s) E/A Ratio 0.98 Pulmonary Valve PV Peak Velocity 111.0 (50-150 cm/s) Tricuspid Valve TR P. Velocity 182.00 cm/s RAP Estimate 10.00 mmHg RVSP 23.20 mmHg Left Ventricle The left ventricle is normal size. The left ventricular systolic function is normal. The left ventricular ejection fraction is within the normal range. There is increased LV wall thickness. There is normal LV segmental wall motion. Transmitral Doppler flow pattern suggests impaired LV relaxation. LVEF is 60%. Right Ventricle The right ventricle is normal size. The right ventricular systolic function is normal. Atria The left atrium size is normal. The right atrium size is normal. There is no color Doppler evidence of interatrial shunt. Agitated saline administration demonstrates no evidence of interatrial shunt. Aortic Valve The aortic valve is mildly thickened. There is no aortic valvular stenosis. No aortic regurgitation is present. Mitral Valve The mitral valve is normal in structure. No evidence of mitral valve stenosis Trace mitral regurgitation. Tricuspid Valve Tricuspid valve is grossly normal in structure and function. Trace tricuspid regurgitation. There is insufficient TR jet to estimate RVSP. Pulmonic Valve The pulmonary valve is normal in structure. Trace pulmonic regurgitation. Great Vessels The aortic root is normal in size. IVC is normal in size and collapses >50% with inspiration. Pericardium There is no pericardial effusion. Other Information Study Quality: Fair Conclusion Normal biventricular systolic function. No significant valvular stenosis or regurgitation. There is no color Doppler evidence of interatrial shunt. Agitated saline administration demonstrates no evidence of interatrial shunt. Electronically signed by : Viry Viera MD 10/16/2024 09:34:01
--- NOTE | 2024-10-17 10:11 | SW/DCPLANNER ---
Spoke with patient on the phone. Patient stated that he is very tired. Patient stated that his is going to pick his medicine up from the drug store in [place]. Patient stated that he is aware of his upcoming appointments. Patient stated that he has no concerns or questions at this time. Beth Branham
== END 2024-10-16 13:37 | disposition home or self-care (01) ==
LOC: ER 18:10 → 2ND 18:26
PROVIDERS: Physician Assistant; Admitting Provider Internal Medicine Adolescent Medicine; Emergency Provider Emergency Medicine; PCP Nurse Practitioner; Visit Provider Internal Medicine Adolescent Medicine
DX: R20.2 Paresthesia of skin (principal); R29.90 Unspecified symptoms and signs involving the nervous system; R29.898 Other symptoms and signs involving the musculoskeletal system; M51.9 Unspecified thoracic, thoracolumbar and lumbosacral intervertebral disc disorder; K21.00 Gastro-esophageal reflux disease with esophagitis, without bleeding; I10 Essential (primary) hypertension; E78.5 Hyperlipidemia, unspecified; N40.0 Benign prostatic hyperplasia without lower urinary tract symptoms; E11.40 Type 2 diabetes mellitus with diabetic neuropathy, unspecified; F39 Unspecified mood [affective] disorder; Z83.1 Family history of other infectious and parasitic diseases; Z83.3 Family history of diabetes mellitus; Z80.9 Family history of malignant neoplasm, unspecified; Z82.49 Family history of ischemic heart disease and other diseases of the circulatory system; Z82.5 Family history of asthma and other chronic lower respiratory diseases; Z79.84 Long term (current) use of oral hypoglycemic drugs; Z79.85 Long-term (current) use of injectable non-insulin antidiabetic drugs; Z88.8 Allergy status to other drugs, medicaments and biological substances; Z88.1 Allergy status to other antibiotic agents
CPT/HCPCS: 70450; 70496; 70498; 70551; 71275; 80053; 80061; 80320; 82962; 83036; 83735; 83880; 84443; 84484; 85025; 85610; 85730; 87636; 93005; 93306; 97163; 99291; G0378; J1100; J1650; J1885; J2405; J3475

== ENCOUNTER 2024-10-19 17:26 | Emergency (ER) | payer MEDICARE, MEDICAID, SELFPAY ==
--- NOTE | 2024-10-19 17:36 | CT_ITS ---
PROCEDURE INFORMATION: Exam: CTA Neck With Contrast Exam date and time: 10/19/2024 5:44 PM Age: 64 years old Clinical indication: Stroke-like symptoms; Left facial droop; Additional info: L sided facial droop, numbness, lue drift TECHNIQUE: Imaging protocol: Computed tomographic angiography of the neck with contrast. Exam focused on the cervical segments of the vasculature. 3D rendering (Not supervised by radiologist): MIP and/or 3D reconstructed images were created by the technologist. Radiation optimization: All CT scans at this facility use at least one of these dose optimization techniques: automated exposure control; mA and/or kV adjustment per patient size (includes targeted exams where dose is matched to clinical indication); or iterative reconstruction. Contrast material: ISOVUE; Contrast volume: 80 ml; Contrast route: INTRAVENOUS (IV); COMPARISON: CT ANGIO NECK 10/15/2024 3:57 PM FINDINGS: Right common carotid artery: No stenosis. No dissection or occlusion. Right internal carotid artery: No stenosis of the extracranial segment. No dissection or occlusion. Right external carotid artery: No occlusion or stenosis of the origin. Left common carotid artery: No stenosis. No dissection or occlusion. Left internal carotid artery: No stenosis of the extracranial segment. No dissection or occlusion. Left external carotid artery: No occlusion or stenosis of the origin. Right vertebral artery: No stenosis. No dissection or occlusion. Left vertebral artery: No stenosis. No dissection or occlusion. Soft tissues: Normal. No significant soft tissue swelling. Bones/joints: No acute fracture. IMPRESSION: No stenosis or occlusion. REFERENCES: NASCET CRITERIA. The degree of stenosis in the cervical segment of the internal carotid artery is based on NASCET criteria. Normal is no stenosis. Mild is less than 50% stenosis. Moderate is 50-69% stenosis. Severe is 70% to 99% stenosis. Total occlusion is no detectable patent lumen.
--- NOTE | 2024-10-19 17:36 | CT_ITS ---
PROCEDURE INFORMATION: Exam: CT Head Without Contrast Exam date and time: 10/19/2024 5:44 PM Age: 64 years old Clinical indication: Stroke-like symptoms; Left facial droop; Additional info: Left facial droop, facial numbness, lue drift TECHNIQUE: Imaging protocol: Computed tomography of the head without contrast. Radiation optimization: All CT scans at this facility use at least one of these dose optimization techniques: automated exposure control; mA and/or kV adjustment per patient size (includes targeted exams where dose is matched to clinical indication); or iterative reconstruction. Other technique: STROKE PROTOCOL was implemented. COMPARISON: MR HEAD/BRAIN WO CON 10/16/2024 8:26 AM FINDINGS: Brain: Normal. No hemorrhage. Unremarkable white matter. No mass effect. Cerebral ventricles: No ventriculomegaly. Paranasal sinuses: Visualized sinuses are unremarkable. No fluid levels. Mastoid air cells: Visualized mastoid air cells are well aerated. Bones: Unremarkable. No acute fracture. Soft tissues: Unremarkable. IMPRESSION: No acute intracranial abnormality. ASSESSMENT: ASPECTS ([place] Stroke Program Early CT Score) is 10.
--- NOTE | 2024-10-19 17:36 | CT_ITS ---
PROCEDURE INFORMATION: Exam: CTA Head With Contrast, Arteriography Exam date and time: 10/19/2024 5:44 PM Age: 64 years old Clinical indication: Stroke-like symptoms; Left facial droop; Additional info: L sided facial droop, numbness, lue drift TECHNIQUE: Imaging protocol: Computed tomographic angiography of the head with contrast. Exam focused on the arteries. 3D rendering (Not supervised by radiologist): MIP and/or 3D reconstructed images were created by the technologist. Radiation optimization: All CT scans at this facility use at least one of these dose optimization techniques: automated exposure control; mA and/or kV adjustment per patient size (includes targeted exams where dose is matched to clinical indication); or iterative reconstruction. Contrast material: ISOVUE; Contrast volume: 80 ml; Contrast route: INTRAVENOUS (IV); COMPARISON: CT ANGIO HEAD 10/15/2024 3:57 PM FINDINGS: ANTERIOR CIRCULATION: Right internal carotid artery: Intracranial segment is patent with no significant stenosis. No aneurysm. Right middle cerebral artery: No occlusion or significant stenosis. No aneurysm. Right anterior cerebral artery: No occlusion or significant stenosis. No aneurysm. Left internal carotid artery: Intracranial segment is patent with no significant stenosis. No aneurysm. Left middle cerebral artery: No occlusion or significant stenosis. No aneurysm. Left anterior cerebral artery: No occlusion or significant stenosis. No aneurysm. POSTERIOR CIRCULATION: Right vertebral artery: No occlusion or significant stenosis. No aneurysm. Left vertebral artery: No occlusion or significant stenosis. No aneurysm. Basilar artery: No occlusion or significant stenosis. No aneurysm. Right posterior cerebral artery: No occlusion or significant stenosis. No aneurysm. Left posterior cerebral artery: No occlusion or significant stenosis. No aneurysm. Brain: No definite mass, mass effect, or midline shift. Cerebral ventricles: No ventriculomegaly. Bones/joints: Unremarkable. No acute fracture. Soft tissues: Unremarkable. IMPRESSION: No large vessel stenosis or occlusion.
--- NOTE | 2024-10-19 17:37 | PC.NURSE ---
1731 Cayetano CHRISTIANSON to triage to assess patient.
--- NOTE | 2024-10-19 17:38 | ECG_ITS ---
APPROVED REPORT Exam: Resting ECG HR:58 bpm ECG Measurements Heart Rate 58 AXES NV 141 P 52 QRSd 94 QRS 60 QT 417 T 55 QTc 414 Conclusion Sinus bradycardia Incomplete right bundle branch block Electronically signed by : WINSTON PADILLA, 10/19/2024 21:07:00
--- NOTE | 2024-10-19 17:38 | PC.NURSE ---
1733 Per Cayetano CHRISTIANSON stroke alert to be activated. Carlos Taylor notified of patient coming to room 1 and stroke activation.
[2024-10-19 17:44] VITALS: BP 123/73; PULSE 69; RESP 16; TEMP 36.6; O2SAT 98; BMI 29.8
[2024-10-19] MEDS: SODIUM CHLORIDE 0.9% 10ML SYR (RAD ONLY) 10 ML IV (17:47)
[2024-10-19] MEDS: IOPAMIDOL-370 (76%);100ML BOTTLE 80 ML IV (17:47)
[2024-10-19] MEDS: 0.9 % SODIUM CHLORIDE 50 ML VIAL IV (17:47)
[2024-10-19 17:49] LABS: Basophils % 0.6 % (0.1-2.0); Eosinophils # 0.2 K/mm3 (0.0-0.4); Eosinophils % 4.3 % (0.1-12.0); Hematocrit 43.7 % (42.0-52.0); Mean Corpuscular HGB Conc 34.3 g/dL (31.8-35.4); Mean Corpuscular Hemoglobin 31.3 pg (27.0-31.2); Mean Corpuscular Volume 91.2 fl (80-94); Mean Platelet Volume 9.8 fl (7.4-10.4); Monocytes # 0.5 K/mm3 (0.1-1.0); Monocytes % 9.1 % (1.7-9.3); Neutrophils # 2.3 K/mm3 (1.8-7.8); Neutrophils % 45.8 % (37.0-80.0); Platelet Count 181 K/mm3 (142-424); Red Blood Count 4.79 M/mm3 (4.60-6.20); White Blood Count 4.9 K/mm3 (4.8-10.8)
[2024-10-19 17:54] LABS: Albumin Level 4.4 g/dl (3.5-5.0); Chloride 104 mmol/L (98-107); Sodium 139 mmol/L (136-145)
[2024-10-19 17:55] LABS: Potassium 3.6 mmoL/L (3.5-5.1)
[2024-10-19 17:57] LABS: Alanine Aminotransferase 25 U/L (12-78); Alkaline Phosphatase 95 U/L (38-126); Anion Gap 11.6 mEq/L (5-15); Aspartate Amino Transferase 28 U/L (17-59); Bilirubin,Total 0.7 mg/dl (0.2-1.3); Blood Urea Nitrogen 17 mg/dl (9-20); Carbon Dioxide 27 mmol/L (22.0-30.0); Estimated Glomerular Filt Rate 85 ml/min (>60); GFR (African American) 103 ML/MIN (>60); Globulin 2.2 g/dL (1.3-3.2); Total Protein,Serum 6.6 g/dl (6.3-8.2)
[2024-10-19 17:58] LABS: Calcium 9.1 mg/dl (8.4-10.2); Glucose 147 mg/dl (74-100)
--- NOTE | 2024-10-19 17:59 | [facility].EDGENADL ---
Discharge Plan Disposition Patient Disposition: Home, Self-Care Chief Complaint: Neuro Symptoms/Deficit Prescriptions Prescriptions: No Action gabapentin 600 mg tablet 600 mg PO TID Patient Comments: TAKE ONE TABLET BY MOUTH THREE TIMES DAILY atorvastatin 20 mg tablet 20 mg PO HS Patient Comments: TAKE ONE TABLET BY MOUTH DAILY amlodipine 5 mg tablet 5 mg PO DAILY Patient Comments: TAKE ONE TABLET BY MOUTH DAILY mesalamine 0.375 gram capsule,extended release 24hr 1.48 g PO DAILY Patient Comments: Take 4 capsules every day by oral route as directed for 90 days. Jardiance 25 mg tablet 25 mg PO DAILY Patient Comments: Take 1 tablet every day by oral route. Ozempic 0.25 mg or 0.5 mg (2 mg/3 mL) pen injector 0.25 mg SQ WEEKLY Patient Comments: INJECT 0.25 MG WEEKLY SUBCUTANEOUSLY FOR 30 DAYS alum-mag hydroxide-simeth [Maalox Maximum Strength] 400-400-40 mg/5 mL suspension 5 ml PO Q6H PRN (Reason: indigestion) Qty: 3000 0RF propranolol 10 mg tablet 10 mg PO BID Patient Comments: TAKE ONE TABLET BY MOUTH TWICE DAILY for tremors divalproex 500 mg tablet extended release 24 hr 500 mg PO BID Patient Comments: TAKE ONE TABLET BY MOUTH TWICE DAILY oxybutynin chloride 10 mg tablet extended release 24hr 10 mg PO DAILY Patient Comments: TAKE ONE TABLET BY MOUTH DAILY tamsulosin 0.4 mg capsule 0.4 mg PO HS Patient Comments: TAKE ONE CAPSULE BY MOUTH ONCE DAILY ropinirole 2 mg tablet 2 mg PO HS Patient Comments: TAKE ONE TABLET BY MOUTH NIGHTLY AT BEDTIME pantoprazole 40 mg tablet,delayed release (DR/EC) 40 mg PO DAILY Patient Comments: TAKE ONE TABLET BY MOUTH DAILY clopidogrel 75 mg Tablet 75 mg PO DAILY 19 Days Qty: 19 0RF aspirin 81 mg Tablet,Delayed Release (Dr/Ec) 81 mg PO DAILY 30 Days Qty: 30 0RF Referrals Follow up/Referrals: Consuelo Segundo APRN [Primary Care Provider] - See instructions Delta Guajardo MD [Staff Physician] - See instructions Activity Restrictions/Add. Instructions Additional Instructions/Restrictions: Call your family doctor to establish care for this visit to the emergency department and schedule follow-up within 48 hours to ensure improvement. If you have any worsening of your condition or any other concerning signs or symptoms, return to the emergency department or your primary care doctor for further evaluation. Follow-up with cardiology, information here. This could be atypical presentation of heart disease given your history. Clinical Impressions Clinical Impression: Transient neurological symptoms Print Language Print Language: Sinhala Discharge ED Provider: Robert Monteiro General Adult HPI General Chief complaint: Neuro Symptoms/Deficit Stated complaint: Numbness left side of faceleft arm Time Seen by Provider: 10/19/24 17:35 History of Present Illness HPI narrative: Please note that above description of symptoms, in this electronic medical record under categorization of recalled from ER triage doctor by RN are reflective of an initial nursing assessment, however, is not reflective of my full history and physical exam that was personally taken and clarified. Consequentially, this preceding description of symptoms, which may include the patient's categorized chief complaint in the EMR, do not reflect my personal clinical impression, and the ultimate description of history of present illness and patient stated complaints should be deferred to this section of the note. Unless stated otherwise or congruent with this section of the note, additional signs, symptoms, or incongruence should be interpreted as inaccurate with my clinical impression. Related Data Home Medications ?Medication ?Instructions ?Recorded ?Confirmed amlodipine 5 mg tablet 5 mg PO DAILY 05/29/24 10/15/24 atorvastatin 20 mg tablet 20 mg PO HS 05/29/24 10/16/24 empagliflozin 25 mg tablet 25 mg PO DAILY 05/29/24 10/15/24 (Jardiance) gabapentin 600 mg tablet 600 mg PO TID 05/29/24 10/15/24 mesalamine 0.375 gram 1.48 g PO DAILY 05/29/24 10/16/24 capsule,extended release 24 hr semaglutide 0.25 mg or 0.5 mg (2 0.25 mg SQ WEEKLY 05/29/24 10/15/24 mg/3 mL) subcutaneous pen injector (Ozempic) divalproex 500 mg tablet,extended 500 mg PO BID bipolar disease 10/15/24 10/15/24 release 24 hr oxybutynin chloride 10 mg 10 mg PO DAILY 10/15/24 10/15/24 tablet,extended release 24 hr pantoprazole 40 mg tablet,delayed 40 mg PO DAILY 10/15/24 10/15/24 release propranolol 10 mg tablet 10 mg PO BID tremors 10/15/24 10/15/24 ropinirole 2 mg tablet 2 mg PO HS 10/15/24 10/15/24 tamsulosin 0.4 mg capsule 0.4 mg PO HS 10/15/24 10/16/24 Previous Rx's ?Medication ?Instructions ?Recorded aluminum-mag hydroxide-simethicone 5 ml PO Q6H PRN indigestion #3,000 09/13/24 400 mg-400 mg-40 mg/5 mL oral susp mL (Maalox Maximum Strength) aspirin 81 mg tablet,delayed 81 mg PO DAILY 30 days #30 tabs 10/16/24 release clopidogrel 75 mg tablet 75 mg PO DAILY 19 days #19 tabs 10/16/24 Allergies Allergy/AdvReac Type Severity Reaction Status Date / Time prednisone Allergy Mild Other Verified 10/19/24 18:08 levofloxacin (From Levaquin) Allergy Other Verified 10/19/24 18:08 lithium Allergy Other Verified 10/19/24 18:08 metronidazole (From Flagyl) Allergy Other Verified 10/19/24 18:08 mometasone furoate (From Allergy Other Verified 10/19/24 18:08 Asmanex Twisthaler) montelukast (From Singulair) Allergy Other Verified 10/19/24 18:08 PFSH PFSH Disclaimer: The information contained in this section may have been updated after the patient was seen, as this information can be updated by other users. Medical History (Updated 10/19/24 @ 20:04 by Robert Monteiro MD) Left wrist amputee GERD (gastroesophageal reflux disease) Depression Anxiety Diabetes mellitus, type 2 Hyperlipidemia Hypertension Surgical History (Updated 10/15/24 @ 19:04 by Zulema Julian RN) H/O left wrist surgery Hx of cataract surgery History of cholecystectomy History of hip replacement Family History Tuberculosis Grandfather Diabetes Sister Brother Cancer Mother Hypertension Brother Mother Sister Brother Asthma Brother Social History (Updated 10/15/24 @ 18:53 by Zulema Julian RN) Smoking Status: Never smoker second hand exposure: No alcohol intake: never substance use type: denies use current occupational status: unemployed Travel in the last 8 weeks: None lives independently: No marital status: Have you lived/traveled outside [place] in past 30 days?: No Contact w/someone who lives/traveled outside [place] past 30 days?: No Exposure to someone with infectious disease in past 14 days?: No Do you have a fever (greater than 100.4 F or 38 C)?: No Have you tested positive for COVID-19: No Exposed to someone with COVID-19 in past 14 days?: No Do you have a sore throat?: No Do you have a cough?: No Do you have any weakness?: No Do you have any diarrhea?: No Are you experiencing any unusual bleeding?: No Do you have any muscle aches/pain?: No Do you have any abdominal pain?: No Are you experiencing loss of taste or smell?: No Other Medical History Have you received the Flu Vaccine for this season: No Have you received the Pneumonia Vaccine: No ROS Obtained: Yes All systems reviewed & no additional complaints except as documented Physical Exam General General appearance: alert Head Head exam: atraumatic and normocephalic Eye Eye exam: Present normal appearance, PERRL and EOMI Neck Neck exam: Present normal inspection, full ROM and trachea midline Respiratory Respiratory exam: Present normal lung sounds bilaterally; Absent respiratory distress, wheezes, stridor, accessory muscle use or prolonged expiratory phase Cardiovascular Cardiovascular exam: Present regular rate, normal rhythm and other (Pulses equal symmetric in upper and lower extremities) Abdominal Exam Abdominal exam: Present soft; Absent distention, tenderness or pulsatile mass Extremities Exam Extremities exam: Absent edema Neurological Exam Neurological exam: Present alert, oriented X3, normal gait and motor sensory deficit (Left upper extremity drift); Absent CN II-XII intact (Left-sided nasolabial fold flattening and facial sensation decreased as compared to right) Skin Skin exam: Present warm and dry; Absent diaphoresis or erythema Medical Decision Making Medical Records Medical records reviewed: Yes I reviewed the patient's medical records. Screening: Per USPSTF and CDC recommendations, given the prevalence of disease in our region, it is our hospital?s policy to screen for HIV and viral Hepatitis for all patients aged 18 and over and those with ongoing risk factors. Jeet Inquiry Pt receiving controlled substance: No Jeet was queried for this patient: No Vital Signs: 10/19/24 17:44 10/19/24 18:02 10/19/24 18:30 Temperature 97.9 F Temperature Source Oral Pulse Rate 56 L 60 Pulse Rate [Left] 69 Respiratory Rate 16 22 18 Blood Pressure 123/73 119/71 Blood Pressure [Right Arm] 123/73 Blood Pressure Mean 95 88 Blood Pressure Mean [Right Arm] 89 Blood Pressure Source [Right Arm] Automatic Cuff Blood Pressure Position [Right Arm] Sitting 02 Sat by Pulse Oximetry 98 97 98 Oxygen Delivery Method Room Air 10/19/24 19:00 Temperature Temperature Source Pulse Rate 57 L Pulse Rate [Left] Respiratory Rate 17 Blood Pressure 122/73 Blood Pressure [Right Arm] Blood Pressure Mean 92 Blood Pressure Mean [Right Arm] Blood Pressure Source [Right Arm] Blood Pressure Position [Right Arm] 02 Sat by Pulse Oximetry 98 Oxygen Delivery Method Lab Data Lab Results 10/19/24 17:40: WBC 4.9, RBC 4.79, Hgb 15.0, Hct 43.7, MCV 91.2, MCH 31.3 H, MCHC 34.3, RDW 13.0, Plt Count 181, MPV 9.8, Neut % (Auto) 45.8, Lymph % (Auto) 40.0, [place] % (Auto) 9.1, Eos % (Auto) 4.3, Baso % (Auto) 0.6, Neut # (Auto) 2.3, Lymph # (Auto) 2.0, [place] # (Auto) 0.5, Eos # (Auto) 0.2, Baso # (Auto) 0.0, PT 11.5, INR 1.03, APTT 26.2, Sodium 139, Potassium 3.6, Chloride 104, Carbon Dioxide 27, Anion Gap 11.6, BUN 17, Creatinine 0.90, Estimated GFR 85, Est GFR ( Amer) 103, Glucose 147 H, Calcium 9.1, Total Bilirubin 0.7, AST 28, ALT 25, Alkaline Phosphatase 95, Troponin I < 0.01, NT-Pro-B Natriuret Pep 28.1, Total Protein 6.6, Albumin 4.4, Globulin 2.2, Albumin/Globulin Ratio 2.0 H 10/19/24 17:40 10/19/24 17:40 Orders (Tests/Meds): ED MEDICATIONS Discontinued Medications Generic Name Dose Route Start Last Admin Trade Name Freq PRN Reason Stop Dose Admin Iopamidol 80 ml 10/19/24 17:46 10/19/24 17:47 Iopamidol-370 (76%);100ml Bottle IV 10/19/24 17:47 80 ml ONCE ONE Administration Sodium Chloride 50 ml 10/19/24 17:46 10/19/24 17:47 0.9 % Sodium Chloride 50 Ml Vial IV 10/19/24 17:47 50 ml ONCE ONE Administration Sodium Chloride 10 ml 10/19/24 17:46 10/19/24 17:47 Sodium Chloride 0.9% 10ml Syr (Rad Only) IV 10/19/24 17:47 10 ml ONCE ONE Administration ORDERS Category Date Time Status CT angio head Stat Cat Scan 10/19/24 17:[address] angio neck Stat Cat Scan 10/19/24 17:[address] head/brain wo con Stat Cat Scan 10/19/24 17:36 Completed CBC w/Auto Diff [Complete Blood Count Auto Diff] Stat Lab 10/19/24 17:40 Completed CMP [Comprehensive Metabolic Panel] Stat Lab 10/19/24 17:40 Completed NT Pro Brain Natriuretic Pep. Stat Lab 10/19/24 17:40 Completed PT INR [Prothrombin Time INR] Stat Lab 10/19/24 17:40 Completed PTT [Activated Partial Thrombo Time] Stat Lab 10/19/24 17:40 Completed Trop T [Troponin I] Stat Lab 10/19/24 17:40 Completed Troponin I Q3H Lab 10/19/24 20:45 Ordered Troponin I Q3H Lab 10/19/24 23:45 Ordered ECG Data Tracing #1: I reviewed this ECG and interpreted as documented below: (Sinus bradycardia 58 bpm with TX 141, QRS 94, QTc 414. Incomplete right bundle branch block morphology with normal axis. No acute ischemic change) HEART Score History (anamnesis): Moderately suspicious ECG: Normal Age: 45-65 years Risk factors: 3 or more risk factors Troponin: </= normal limit HEART Score: 4 Medical Decision Narrative: 64-year-old male history of hypertension, hyperlipidemia, type 2 diabetes, anxiety, recent TIA presenting with worsening left-sided symptoms. States that his symptoms were largely gone till today, 10/19 around 4 PM. States that he was doing nothing in particular when he had acute onset left-sided facial numbness, left-sided facial droop and left upper extremity heaviness/weakness. Did go away, came in for further evaluation. No left lower extremity symptoms. History was obtained via conversation with patient, family, chart review. On arrival, patient hemodynamically stable, alert, oriented x4, appropriate, GCS 15, moving all extremities spontaneously, pupils equal and reactive to light. Full physical exam performed and significant for clinically well-appearing male who is in no acute distress. Ambulatory without issue. Left-sided facial decreased sensation as compared to right. Flattening of the left nasolabial fold. Left upper extremity drift and mild weakness as compared to right. No left lower extremity symptoms. Cardiac exam normal with no lower extremity edema. Differential includes embolic stroke, hemorrhagic stroke, dissection, metabolic abnormality, endocrinologic abnormality, among others. Patient placed on continuous cardiac monitoring and continuous pulse ox with initial blood pressure 123/73, heart rate 89, saturation 98% on room air. Independent interpretation of EKG shows sinus bradycardia 58 bpm with TX 141, QRS 94, QTc 414. No acute ischemic change and normal axis. Patient was given IV fluids for symptomatic management and correction of underlying abnormalities. Workup independently interpreted and significant for no acute actionable abnormalities of CBC chemistry, coags, troponin, BNP. Patient's imaging independently interpreted. No intracranial hemorrhage on CT head. No vascular abnormality about the head or neck. Heart score 4. On reevaluation, patient states that he is feeling better, just scared about the symptoms. I had prolonged discussion with patient regarding admission versus home-going. Patient already on maximal medical therapy, symptoms are resolving, but has ABCD2 score of 6 making him high risk for full CVA. Also discussed with patient that this may be related to underlying cardiac disease and atypical presentation of angina given his history of diabetes and atypical symptom he voiced his understanding. States that he would rather go home after prolonged discussion of risks and benefits of doing so. This included a discussion of potential alternative plans. These risks include but are not limited to clinical decompensation, halfway disability and . The patient appears capable of making this decision. I have advised the patient to immediately return if there are any further problems or if they change their mind about seeking further care. Given patient presentation, workup, history, this most likely represents TIA versus atypical angina. Recommended close follow-up with family doctor as well as cardiology. This was placed. Because patient at baseline without signs or symptoms of clinical decompensation, deemed appropriate for discharge. Results were relayed to patient who voiced understanding and were agreeable to outpatient management and follow up. I discussed my clinical impression with patient and answered all questions. At this time, the evidence for any other entities in the differential is insufficient to warrant any further testing or ED observation. This was explained as well. Advisory was given that persistent or worsening symptoms require further evaluation. I confirmed the understanding of this discussion. Flatbed Driver disclaimer Much of this encounter note is an electronic auto wash buffer spoken language to printed text. Electronic auto wash buffer of the spoken language may permit errors. Although I have reviewed the note, some errors may still exist. Critical Care Critical Care Time Critical Care Time: Yes (neurologic) Attestation: On 10/19/24, the high probability of a clinically significant, sudden or life threatening deterioration of the following system(s) required my full and direct attention, intervention and personal management. The time I documented below is in addition to time spent performing reported procedures but includes the following listed in this critical care notation. Total Time Total Critical Care Time: 35
[2024-10-19 18:02] VITALS: BP 123/73; PULSE 56; RESP 22; O2SAT 97
[2024-10-19 18:07] LABS: Activated Partial Thrombo Time 26.2 seconds (22.8-30.6); INR 1.03 (0.9-1.1); Prothrombin Time 11.5 seconds (10.1-12.5)
--- NOTE | 2024-10-19 18:07 | PC.NURSE ---
NAYANA called to speak with Dr Monteiro about this pt.
[2024-10-19 18:10] LABS: NT Pro Brain Natriuretic Pep. 28.1 pg/mL (0-125)
[2024-10-19 18:22] LABS: Troponin I < 0.01 ng/ml (0.00-0.034)
[2024-10-19 18:30] VITALS: BP 119/71; PULSE 60; RESP 18; O2SAT 98
[2024-10-19 19:00] VITALS: BP 122/73; PULSE 57; RESP 17; O2SAT 98
[2024-10-19 20:24] VITALS: BP 130/77; PULSE 59; RESP 16; TEMP 36.6; O2SAT 96
== END 2024-10-19 20:25 | disposition home or self-care (01) ==
PROVIDERS: Emergency Provider Emergency Medicine; PCP Nurse Practitioner
DX: R29.818 Other symptoms and signs involving the nervous system (principal); R20.2 Paresthesia of skin; G81.94 Hemiplegia, unspecified affecting left nondominant side; R29.810 Facial weakness
CPT/HCPCS: 70450; 70496; 70498; 80053; 83880; 84484; 85025; 85610; 85730; 93005; 99291; Q9967

== ENCOUNTER 2024-11-08 09:50 | Outpatient (CLI) | payer MEDICARE, MEDICAID, SELFPAY ==
[2024-11-08 11:13] LABS: Anion Gap 10.3 mEq/L (5-15); Blood Urea Nitrogen 11 mg/dl (9-20); Calcium 9.3 mg/dl (8.4-10.2); Carbon Dioxide 31 mmol/L (22.0-30.0); Chloride 103 mmol/L (98-107); Estimated Glomerular Filt Rate 85 ml/min (>60); GFR (African American) 103 ML/MIN (>60); Glucose 91 mg/dl (74-100); Potassium 4.3 mmoL/L (3.5-5.1); Sodium 140 mmol/L (136-145)
== END 2024-11-08 23:59 | disposition home or self-care (01) ==
LOC: RT 09:51
PROVIDERS: PCP Nurse Practitioner; Visit Provider Physician Assistant
DX: R00.2 Palpitations (principal); M79.661 Pain in right lower leg; R20.0 Anesthesia of skin; R07.89 Other chest pain
CPT/HCPCS: 36415; 80048; 93270

== ENCOUNTER 2024-11-23 08:40 | Outpatient (CLI) | payer MEDICARE, MEDICAID, SELFPAY ==
--- OUTSIDE RECORDS SUMMARY | 2024-11-23 08:42 | XMS_ITS | Data Portability ---
Author Organization ANGELINA LINNETTE Ku [facility] Address [address] [place] [address] Care Team Providers Care Policy Value Calculator Name Role Phone ISAURO SELENA Primary Care Provider [phone] Assessment Encounter Date Assessment Date Assessment LastModified by Organization Details LastModified Time 04/14/2023 04/14/2023 Back greater nohemy n right greater than left lower extremity pain. He has a disc protrusion at L1-2 that causes mild to moderate canal stenosis. I do not detect any severe nerve impingement or misalignment of the spine. I do not recommend surgery because of this. I will check flexion-extension x-rays to see if there is any occult instability. He will call the office in a couple days for results. He seems like a reasonable patientMan. He just wants some relief of his back pain. He Wants to avoid pain medications. I will see if Dr. Olguin our house painter helper can evaluate and treat him.He was happy with the plan. [email or web address] Not available 04/14/2023 12:31:42 04/19/2023 04/19/2023 This is a 62-year-old gentleman seen today for evaluation and treatment of low back pain. He is referred by Dr. Gallo for evaluation and treatment to consider injection therapy. No immediate surgery was recommended. This pain has been present for over 5 years. He describes pain with minimal standing and ambulation. He also has pain at rest. Pain refers into the hips and thighs bilaterally as well as an S1 distribution. He has some allodynia across the lumbar spine. He has treated with other pain management providers in the past with minimal relief. PMH: PSHx: 1. MRI lumbar spine 04/06/2023 demonstrates large central disc protrusion at L1-2 with moderate canal stenosis. Mild left L4-5 foraminal narrowing. Slight Modic type II endplate changes at right L5-S1 2. X-ray lumbar spine flexion-extension 04/14/2023 demonstrates no instability in flexion or extension. Mild DDD 3. EMG/NCV from 2021 demonstrates acute denervation of the L5-S1 innervated muscles bilaterally. The above image findings were discussed with the patient. Previous injection therapy at has included: 2021 lumbar MBB RFA no relief 09/02/2021 bilateral L3-5 MBB no relief 06/22/2021 L2-3 IL RAE Currently prescribed gabapentin with minimal. Presentation is consistent with lumbar stenosis with radiculopathy. I recommend: 1. Given the potential invasiveness of surgical options recommended at and no surgery recommended by Dr. Gallo we discussed all available options today. He has tried and failed conservative injection options with minimal relief. At this time I think it is appropriate to consider spinal cord stimulator trial. A thorough discussion was had with the patient today regarding the potential risks, benefits, and alternatives to the above treatment plan. Questions were answered to the patient's satisfaction. 2. He will call if he wishes to follow-up to discuss further or proceed Preop Surgery Preparation Diabetes history: Yes MRSA history: No or Unknown Postop infection history: No Immune compromised: No Anticoagulants: none External records were reviewed and discussed as above, including imaging, clinical notes, and relevant labs. [email or web address] Not available 04/19/2023 09:35:41 2023 2023 This is a 62-year-old gentleman seen today for evaluation and treatment of low back pain and to discuss Lyrica prescription as well as spinal cord stimulator versus neurosurgery. This pain has been present for over 5 years. He describes pain with minimal standing and ambulation, however he has recently experienced a few falls and generalized lower extremity weakness. He also has pain at rest. Pain refers into the hips and thighs bilaterally as well as an S1 distribution. He has some allodynia across the lumbar spine. Notably, he was intolerant of baclofen as it caused some mental status changes. PMH: PSHx: 1. MRI lumbar spine 04/06/2023 demonstrates large central disc protrusion at L1-2 with moderate canal stenosis. Mild left L4-5 foraminal narrowing. Slight Modic type II endplate changes at right L5-S1 2. X-ray lumbar spine flexion-extension 04/14/2023 demonstrates no instability in flexion or extension. Mild DDD 3. EMG/NCV from 2021 demonstrates acute denervation of the L5-S1 innervated muscles bilaterally. The above image findings were discussed with the patient. Previous injection therapy at has included: 2021 lumbar MBB RFA no relief 09/02/2021 bilateral L3-5 MBB no relief 06/22/2021 L2-3 IL RAE Jeet reviewed and appropriate. Patient is considered low risk. Presentation is consistent with lumbar stenosis with radiculopathy. I recommend: 1. Given the potential invasiveness of surgical options recommended at as well as exacerbation of symptoms to include worsening weakness and falls I would recommend he suspend the consideration of spinal cord stimulator at this time and patient will seek follow-up with neurosurgery. He has tried and failed conservative injection options with minimal relief. 2. In an effort to manage pain we will transition from gabapentin to Lyrica. Patient is currently taking gabapentin 600 mg 3 times daily. This will replace 5 Lyrica 100 mg 3 times daily. External records were reviewed and discussed as above, including imaging, clinical notes, and relevant labs. [email or web address] Not available 2023 10:49:42 05/18/2023 05/18/2023 Anatomic evaluat ion with cystoscopy. Medical management lower urinary symptoms with alfuzosin and finasteride. [email or web address] Not available 05/25/2023 19:30:24 06/21/2023 06/21/2023 DATE OF PROCEDUR E: 06/21/2023 PROCEDURE PERFORMED: Cystourethroscopy SURGEON: Jarred Tian M.D. ANESTHESIA: Local BLOOD LOSS: None PREOPERATIVE INDICATIONS: BPH/LUTS POSTOPERATIVE INDICATIONS: BPH/LUTS DESCRIPTION OF PROCEDURE: Patient was correctly identified in preoperative holding area. Informed consent was obtained. Risks and benefits were reviewed with patient. Patient was taken to procedure room and positioned supine position. All pressure points padded. Proper timeout procedure completed. Genitourinary area prepped and draped in the normal sterile fashion. Lidocaine jelly instilled for local analgesia. Flexible cystoscope advanced through the urethra. Bladder mucosa without evidence of erythema, papillary bladder mass, foreign body. Ureteral orifices in normal anatomic position. The prostatic urethra showed evidence of prior TUR procedure but moderate bladder neck contracture noted with some nodular adenoma. The urethra was without evidence of stricture or stenosis. The cystoscope was withdrawn atraumatically. Patient tolerated procedure well. DISPOSITION: Patient was taken to the recovery in stable condition. Discharged home with instructions for outpatient follow-up. [email or web address] Not available 06/21/2023 16:00:46 Plan of Treatment Reminders Order Date Submit Date Provider Last Modified By Organization Details Last Modified Time Details Appointments None recorded . Lab urinalys is panel, auto 2022 023 [email or web address] [facility], [address], [address], [place], [address], 19:30:25 PSA, serum or plasma 2022 023 [email or web address] [facility], [address], [address], [place], [address], 19:30:25 toxicolo gy screen, urine [address] [facility], [address] [place], [address], 00:04:17 Referral neurolog ical surgeon referral 2022 023 [email or web address] [facility] [place], [address] [place], [address], 11:37:15 Procedures None recorded . Surgeries transure thral resectio n of bladder neck (SURG) [email or web address] [facility], [address], [address], [place], [address], 13:14:48 cystosco py (SURG) 2022 023 [email or web address] [facility], [address], [address], 3 16:21:07 Imaging None recorded . Medication Orders alfuzosi n ER 10 mg tablet,e xtended release 24 hr 2022 023 [facility], [address] [place], [address], 4 10:49:03 finaster shmuel 5 mg tablet 2022 023 [email or web address] [facility], [address] [place], [address], 3 15:09:17 Lyrica 100 mg capsule 2022 023 [facility], [address] [place], [address], 3 11:24:18 Patient TargetsNo targets recorded. Patient InstructionsNo instructions recorded. Reason for Referral Neurological Surgeon Referra l for Displacement of lumbar intervertebral disc Referring Physician: Karoline Hernández, Pain Management, Encounter Date: 2023 Results Created Date Observation Date Name Description Value Unit Range Abnormal Flag Note LastModifiedBy Organization Detail LastModifiedTime 05/10/2005/11/2023 HIGH RISK DRUG PANEL heroin metabolite, qt ur NEGATI VE NG/mL <10 normal Not Available [facility] [address] [place], [address], 05/13/2023 00:50:28 05/10/2005/11/2023 HIGH RISK DRUG PANEL buprenorphin e NEGATI VE NG/mL <2 normal Not Available [facility] [address] [place], [address], 05/13/2023 00:50:28 05/10/2005/11/2023 HIGH RISK DRUG PANEL norbuprenorp lauren NEGATI VE NG/mL <2 normal Not Available [facility] [address] [place] [address], [address], 05/13/2023 00:50:28 05/10/20 23 05/11/2023 HIGH RISK DRUG PANEL naloxone NEGATI VE NG/mL <2 normal Not Available [facility] [address] [place] [address], [address], 05/13/2023 00:50:28 05/10/20 23 05/12/2023 HIGH RISK DRUG PANEL amphetamines NEGATI VE NG/mL <500 normal Not Available [facility] [address] [place] [address], [address], 05/13/2023 00:50:28 05/10/20 23 05/12/2023 HIGH RISK DRUG PANEL barbiturates NEGATI VE NG/mL <300 normal Not Available [facility] [address] [place] [address], [address], 05/13/2023 00:50:28 05/10/20 23 05/12/2023 HIGH RISK DRUG PANEL benzodiazepi conchis NEGATI VE NG/mL <100 normal Not Available [facility] [address] [place] [address], [address], 05/13/2023 00:50:28 05/10/20 23 05/12/2023 HIGH RISK DRUG PANEL marijuana metabolite NEGATI VE NG/mL <20 normal Not Available [facility] [address] [place] [address], [address], 05/13/2023 00:50:28 05/10/20 23 05/12/2023 HIGH RISK DRUG PANEL cocaine metabolite NEGATI VE NG/mL <150 normal Not Available [facility] [address] [place] [address], [address], 05/13/2023 00:50:28 05/10/20 23 05/12/2023 HIGH RISK DRUG PANEL methadone metabolite NEGATI VE NG/mL <100 normal Not Available [facility] [address] [place] [address], [address], 05/13/2023 00:50:28 05/10/2005/12/2023 HIGH RISK DRUG PANEL opiates NEGATI VE NG/mL <100 normal Not Available [facility] [address] [place] [address], [address], 05/13/2023 00:50:28 05/10/20 23 05/12/2023 HIGH RISK DRUG PANEL oxycodone NEGATI VE NG/mL <100 normal Not Available [facility] [address] [place] [address], [address], 05/13/2023 00:50:28 05/10/20 23 05/12/2023 HIGH RISK DRUG PANEL phencyclidin e NEGATI VE NG/mL <25 normal Not Available [facility] [address] [place] [address], [address], 05/13/2023 00:50:28 05/10/20 23 05/12/2023 HIGH RISK DRUG PANEL creatinine 61.8 mg/dL > or = 20.0 normal Not Available [facility] [address] [place] [address], [address], 05/13/2023 00:50:28 05/10/20 23 05/12/2023 HIGH RISK DRUG PANEL specific gravity 1.015 > or = 1.003 normal Not Available [facility] [address] [place] [address], [address], 05/13/2023 00:50:28 05/10/20 23 05/12/2023 HIGH RISK DRUG PANEL pH 7.3 4.5-9. 0 normal Not Available [facility] [address] [place] [address], [address], 05/13/2023 00:50:28 05/10/20 23 05/12/2023 HIGH RISK DRUG PANEL oxidant NEGATI VE mcg/m L <200 normal Not Available [facility] [address] [place] [address], [place], [address], 05/13/2023 00:50:28 05/10/20 23 05/12/2023 HIGH RISK DRUG PANEL comment SEE BELOW normal This drug testi ng is for medic al treat ment only. Lucina sis was perfo rmed as non-f orens ic testi ng and these resul ts shoul d be used only by healt hcare provi ders to rende r diagn osis or treat ment, or to monit or progr ess of medic al condi tions . LDT Notes : Confi rmati on tests were devel oped and their lucina tical perfo rmanc e wilmer cteri stics have been deter mined by [employer]. It has not been clear ed or appro christiane by the FDA. This assay has been valid ated pursu ant to the CLIA regul ation s and is used for clini sandie purpo ses. Healt hcare Provi ders needi ng Inter preta tion zaira tance , pleas e conta ct us at 1.877 .40.R XTOX (1.87 [phone] .[id number] ) M-F, 8am to 10pm EST Not Available [facility] [address] [place] [address], [address], 05/13/2023 00:50:28 05/10/20 23 05/12/2023 HIGH RISK DRUG PANEL fentanyl NG/mL <0.5 normal SEE BELOW NEGAT JEROMY CONFI RMED NEGAT JEROMY Not Available [facility] [address] [place] [address], [address], 05/13/2023 00:50:28 05/10/20 23 05/12/2023 HIGH RISK DRUG PANEL norfentanyl NEGATI VE NG/mL <0.5 normal Not Available [facility] [address] [place] [address], [address], 05/13/2023 00:50:28 05/10/20 23 05/12/2023 HIGH RISK DRUG PANEL gabapentin [id number] NG/mL <1000 high Not Available [facility] [address] [place] [address], [address], 05/13/2023 00:50:28 05/10/2005/12/2023 HIGH RISK DRUG PANEL pregabalin, qt ur NEGATI VE NG/mL <1000 normal Not Available [facility] [address] [place] [address], [address], 05/13/2023 00:50:28 05/10/20 23 05/12/2023 HIGH RISK DRUG PANEL desmethyltra madol NEGATI VE NG/mL <100 normal Not Available [facility] [address] [place] [address], [address], 05/13/2023 00:50:28 05/10/20 23 05/12/2023 HIGH RISK DRUG PANEL tramadol NEGATI VE NG/mL <100 normal Not Available [facility] [address] [place] [address], [address], 05/13/2023 00:50:28 05/10/20 23 05/12/2023 HIGH RISK DRUG PANEL tapentadol NEGATI VE NG/mL <50 normal Not Available [facility] [address] [place] [address], [address], 05/13/2023 00:50:28 05/10/20 23 05/12/2023 HIGH RISK DRUG PANEL nortapentado l NEGATI VE NG/mL <50 normal Not Available [facility] [address] [place] [address], [address], 05/13/2023 00:50:28 05/10/20 23 05/12/2023 HIGH RISK DRUG PANEL ethyl glucuronide NEGATI VE NG/mL <500 normal Not Available [facility] [address] [place] [address], [address], 05/13/2023 00:50:28 05/10/20 23 05/12/2023 HIGH RISK DRUG PANEL ethyl sulfate NEGATI VE NG/mL <100 normal Not Available [facility] [address] [place], [place] [address], [address], 05/13/2023 00:50:28 05/18/2005/18/2023 PSA, serum or plasm a PSA 0.30 NG/mL 0.0 - 4.0 Not Available [facility] [address], [place], [address], 05/18/2023 10:29:57 05/18/2005/18/2023 urina lysis panel , auto Unknown Analyte Clean Catch Not Available [facility] [address], [place], [address], 05/18/2023 09:50:26 05/18/2005/18/2023 urina lysis panel , auto Unknown Analyte Yellow Not Available [facility] [place] [address], [place], [address], 05/18/2023 09:50:26 05/18/2005/18/2023 urina lysis panel , auto Unknown Analyte Cloudy Not Available [facility] [address], [place], [address], 05/18/2023 09:50:26 05/18/2005/18/2023 urina lysis panel , auto Unknown Analyte 1.015 Not Available [facility] [address], [place], [address], 05/18/2023 09:50:26 05/18/2005/18/2023 urina lysis panel , auto Unknown Analyte 1.003- 1.035 Not Available [facility] [address], [place], [address], 05/18/2023 09:50:26 05/18/2005/18/2023 urina lysis panel , auto Unknown Analyte 7.[address] [facility] [address], [place], [address], 05/18/2023 09:50:26 05/18/2005/18/2023 urina lysis panel , auto Unknown Analyte 5.0-8. 0 Not Available [facility] [address], [place], [address], 05/18/2023 09:50:26 05/18/2005/18/2023 urina lysis panel , auto Unknown Analyte Negati ve Not Available [facility] [address], [place], [address], 05/18/2023 09:50:26 05/18/2005/18/2023 urina lysis panel , auto Unknown Analyte Negati ve Not Available [facility] [address], [place], [address], 05/18/2023 09:50:26 05/18/2005/18/2023 urina lysis panel , auto Unknown Analyte Negati ve Not Available [facility] [address], [place], [address], 05/18/2023 09:50:26 05/18/2005/18/2023 urina lysis panel , auto Unknown Analyte Negati ve Not Available [facility] [address], [place], [address], 05/18/2023 09:50:26 05/18/2005/18/2023 urina lysis panel , auto Unknown Analyte Negati ve Not Available [facility] [address], [place], [address], 05/18/2023 09:50:26 05/18/2005/18/2023 urina lysis panel , auto Unknown Analyte Negati ve Not Available [facility] [address], [place], [address], 05/18/2023 09:50:26 05/18/2005/18/2023 urina lysis panel , auto Unknown Analyte >1000 mg/dl Not Available [facility] [address], [place], [address], 05/18/2023 09:50:26 05/18/2005/18/2023 urina lysis panel , auto Unknown Analyte Normal Not Available [facility] [address], [place], [address], 05/18/2023 09:50:26 05/18/2005/18/2023 urina lysis panel , auto Unknown Analyte 15 mg/dl (Sm) Not Available [facility] [address], [place], [address], 05/18/2023 09:50:26 05/18/2005/18/2023 urina lysis panel , auto Unknown Analyte Negati ve Not Available [facility] [address], [place], [address], 05/18/2023 09:50:26 05/18/2005/18/2023 urina lysis panel , auto Unknown Analyte 1 mg/dl Not Available [facility] [address], [place], [address], 05/18/2023 09:50:26 05/18/2005/18/2023 urina lysis panel , auto Unknown Analyte Normal 1 mg/dl Not Available [facility] [address], [place], [address], 05/18/2023 09:50:26 05/18/2005/18/2023 urina lysis panel , auto Unknown Analyte Negati ve Not Available [facility] [address], [place], [address], 05/18/2023 09:50:26 05/18/2005/18/2023 urina lysis panel , auto Unknown Analyte Negati ve Not Available [facility] [address], [place], [address], 05/18/2023 09:50:26 05/18/2005/18/2023 urina lysis panel , auto Unknown Analyte Negati ve Not Available [facility] [address], [place], [address], 05/18/2023 09:50:26 05/18/2005/18/2023 urina lysis panel , auto Unknown Analyte Negati ve Not Available [facility] [address], [place], [address], 05/18/2023 09:50:26 03/15/2003/15/2023 XR, hip, unila teral , 2 or 3 view [facility] [address] [place] [address] Jorge duncan Name: ELLIOT duncan : [phone] Orderi ng Provid er: [facility] EXAM DATE: 2022 EXAM: XR RT HIP UNILAT ERAL, 2 OR 3 VWS COMPAR TIM: None. HISTOR Y: Pain FINDIN GS: Jorge duncan has a right total hip arthro plasty . The alignm ent is normal . No compli cation is indica pravin. No loosen ing is seen. Minima l degene rative change of the left hip. IMPRES PAIGE: Uncomp licate d appear ing right total hip arthro plasty Interp reted By: Angie Abreu MD Electr onical ly Signed By: Angie Abreu MD on 03/15/20 9:16 AM [email or web address] [facility] [place] [address] , [place], [address], 05/19/2023 07:37:55 03/15/2003/15/2023 XR, lumbo sacra l spine , 2 or 3 view [facility] [address] [place] [address] Jorge duncan Name: ELLIOT duncan : [phone] duncan Orderi ng Provid er: [facility] EXAM DATE: 2022 EXAM: XR LUMBAR AP/LAT CLINIC AL INFORM ATION: Back pain. IMAGES PROVID ED: AP, latera l and coned- down views of the lumbar spine. COMPAR TIM: None. FINDIN GS: Loss of normal lumbar lordos is is seen. Alignm ent and verteb ral body height s are normal . Multil evel disc space reduct ion is seen with anteri or and latera l osteop hytes. No radiog raphic eviden ce of injury is noted. IMPRES PAIGE: Degene rative change s of the lumbar spine. Interp reted By: Asia Pandey MD Electr onical ly Signed By: Asia Pandey MD on 03/15/20 2:22 PM [email or web address] [facility] [place] [address] , [place], [address], 05/19/2023 07:37:55 04/06/20 23 04/06/2023 MRI, lumba r spine , w/o contr ast [place] [facility] [address] [facility] [place] [address] Patien t Name: ELLIOT duncan : [phone] Orderi ng Provid er: ANGIE RAMOS EXAM DATE: 2022 EXAM: MR LUMBAR W/O CONTRA ST HISTOR Y: 62-yea r-old male with low back pain radiat ing to the hips and legs. COMPAR TIM: Radiog raph dated 03/15/20 23 FINDIN GS: The lumbar spine is normal in alignm ent. There is no sublux ation. There is no fractu re. There is mild anteri or margin al osteop hytic spurri ng. No pathol ogic lesion is identi fied in the lumbar spine. The conus medull ivan is normal in appear ance at the L1-L2 level. T11-T1 2 and T12-L1 : These interv ertebr al discs are essent ially normal in appear ance. L1-L2: There is a large centra l disc extrus ion and minima l endpla te spurri ng. There is modera te centra l canal stenos is. There is no neural forami nal stenos is. L2-L3: There is a broad- based disc bulge, mild endpla te spurri ng and mild facet arthro ana. There is no centra l canal stenos is. There is minima l left neural forami nal stenos is. L3-L4: There is a mild disc bulge, mild endpla te spurri ng and mild facet arthro ana. There is no centra l canal stenos is. There is minima l neural forami nal stenos is. L4-L5: There is a broad- based disc bulge, mild endpla te spurri ng and mild facet arthro ana. There is no centra l canal stenos is. There is mild left and minima l right neural forami nal stenos is. L5-S1: There is a broad- based disc protru paige, mild endpla te spurri ng and mild facet arthro ana. There is no centra l canal stenos is. There is mild right neural forami nal stenos is. The parasp inous muscul ature is symmet too and normal in signal . IMPRES PAIGE: 1. There is a large centra l disc extrus ion at L1-L2 with modera te centra l canal stenos is. 2. There is mild left neural forami nal narrow ing at L4-L5 and mild right neural forami nal narrow ing at L5-S1. Interp reted By: Wan rose MD Electr onical ly Signed By: Wan rose MD on 023 11:22 AM [id number] [facility] Radiology [facility] [address] [place] [address], [phone], 04/07/2023 07:34:29 04/14/20 23 04/14/2023 XR, lumbo sacra l spine , 2 or 3 view, bendi ng only [facility] [address] [address] Jorge duncan Name: ELLIOT duncan : [id number] Jorge duncan Orderi ng Provid er: SNEHAL GALLO EXAM DATE: 2022 EXAM: XR LUMBAR SPINE FLEX/E XT ONLY CLINIC AL INFORM ATION: Back pain. IMAGES PROVID ED: Latera l views of the lumbar spine in flexio n and extens ion. COMPAR TIM: 2022 FINDIN GS: Verteb ral body height s are normal . Disc spaces are well-m aintai remigio. No abnorm ality of alignm ent is seen. No instab ility is seen on flexio n or extens ion. No radiog raphic eviden ce of injury is noted. Mild diffus e degene rative endpla te spurri ng IMPRES PAIGE: Mild diffus e DDD. No instab ility. Interp reted By: Angie Abreu MD Electr onical ly Signed By: Angie Abreu MD on 04/14/20 23 12:49 PM [email or web address] [facility] Radiology [facility] [address] [place] [address], [phone], 05/19/2023 14:33:38 Result Notes None recorded. Problems Name Problem SNOMED Code Status Onset Date Resolution Date Notes Provider Name and Address Organization Details Recorded Time Spermatoce le 04168915 Active 2015 From Automated Load;Provi dayna: Lofton, Odilia;Statu s: Active Not Available [facility] 02:[facility]26 Problem Notes Documentation Provider Name and Address Organization Details Recorded Time Neurological Surgeon Consult Note : [facility] ? ? [address] [place] [id number], Perry M (id #[id number], : 1960) [facility] [address] [place] [phone] Date: 04/19/2023RE: Elliot Mata : 1960, PT ID #[id number] Woodward PA-C, I would like to thank you for referring Elliot Mata to our practice for consultation and evaluation. I have enclosed a copy of the office evaluation for your records. Sincerely, Electronically Signed by: FARIBA OLGUIN MDEncount Reason/Date Lower Back Elliot Mata is a 62yo male here for low back pain referred by Dr. Snehal Gallo. He states his pain is 7/10, centered bilaterally in his low back, radiating from his hip to the mid-calf on the Right and to the knee on the Left. He had a Right hip replacement 01/2022. His most recent MRI was 04/06/23. 04/19/2023 - 08:15AM - PAIN MEDICINE History of Present IllnessPain Management L-spine GISHReported bypatient.Location:bilatera l LE radiation; left buttock pain; right buttock pain Quality:burning;sharp Severity:current pain level 7/10; worst pain 10/10;interference with sleep Duration:constant; pain at night Onset/Timing:chronic; 5 years Context:cannot identify Alleviating Factors:position change Aggravating Factors:getting out of bed; going from sit to stand; sitting; walking Associated Symptoms:no bladder compromise; no bowel compromise;weakness; on right Work Related:no ADL (Activities of Daily Living):do not improve with medication; uses OTC acetaminophen alternating with Ibuprofen, states the gabapentin doesn't work but he still takes it Pain Relief with Current Medications:25%; [address] Impairments with Medications:no Prior Imaging:MRI Prior EMG:none Previous Surgery:none Previous Injections:RAE; Had RAE and RFA 4 years ago in [place] and the pain increased. Previous PT:did not help Previous Vamp Stitcher:noneReview of Systems Patient reportsmuscle weakness, back pain, and swelling in the extremitiesbut reports no neck pain. He reports no fever and no night sweats. He reports no difficulty hearing. He reports no chest pain, no palpitations, and no edema. He reports no cough, no shortness of breath, and no sleep apnea. He reports normal appetite. He reports no incontinence. He reports no weakness and no numbness. He reports no depression, no alcohol abuse, no anxiety, and no suicidal thoughts. He reports no fatigue. He reports no excessive bleeding. Physical ExamConstitutional:General Appearance: healthy-appearing, NAD, and normal body habitus. Psychiatric:Orientation: oriented to time, place, and person. Mood and Affect: normal mood and affect and active and alert. Gait and Station:Appearance: normal gait, no limp, and ambulating with no assistive devices. Cardiovascular System:Edema Right: none. Edema Left: none. Skin:Lumbosacral Spine: normal skin. Lumbar Spine:Inspection: no induration, ecchymosis, or swelling and normal alignment. Bony Palpation of the Lumbar Spine: no tenderness of the spinous process or the transverse process;Allodynia across the lumbar spine. Active Range of Motion: flexion normal and extension normal. Motor Strength:L1 Motor Strength on the Right: hip flexion iliopsoas 5/5. L1 Motor Strength on the Left: hip flexion iliopsoas 5/5. L2-L4 Motor Strength on the Right: knee extension quadriceps 5/5. L2-L4 Motor Strength on the Left: knee extension quadriceps 5/5. L5 Motor Strength on the Right: ankle dorsiflexion tibialis anterior 5/5. L5 Motor Strength on the Left: ankle dorsiflexion tibialis anterior 5/5. S1 Motor Strength on the Right: plantar flexion gastrocnemius 5/5. S1 Motor Strength on the Left: plantar flexion gastrocnemius 5/5. Neurological System:Knee Reflex Right: normal (2). Knee Reflex Left: normal (2). Sensation on the Right: L4 normal, L5 normal, and S1 normal. Sensation on the Left: L4 normal, L5 normal, and S1 normal. Special Tests on the Right: compression test negative, Sathya-Fabere test negative, and no clonus of the ankle/knee. Special Tests on the Left: compression test negative, Sathya-Fabere test negative, and no clonus of the ankle/knee.Procedure DocumentationCelina pozoSher[facility]/Pawan is a 62-year-old gentleman seen today for evaluation and treatment of low back pain. He is referred by Dr. Gallo for evaluation and treatment to consider injection therapy. No immediate surgery was recommended. This pain has been present for over 5 years. He describes pain with minimal standing and ambulation. He also has pain at rest. Pain refers into the hips and thighs bilaterally as well as an S1 distribution. He has some allodynia across the lumbar spine. He has treated with other pain management providers in the past with minimal relief.PMH:PSHx: 1. MRI lumbar spine 04/06/2023 demonstrates large central disc protrusion at L1-2 with moderate canal stenosis. Mild left L4-5 foraminal narrowing. Slight Modic type II endplate changes at right L5-S12. X-ray lumbar spine flexion-extension 04/14/2023 demonstrates no instability in flexion or extension. Mild DDD3. EMG/NCV from 2021 demonstrates acute denervation of the L5-S1 innervated muscles bilaterally.The above image findings were discussed with the patient. Previous injection therapy at has included:2021 lumbar MBB RFA no relief09/02/2021 bilateral L3-5 MBB no [id number]/22/2021 L2-3 [place] RAE Currently prescribed gabapentin with minimal. Presentation is consistent with lumbar stenosis with radiculopathy. I recommend:1. Given the potential invasiveness of surgical options recommended at and no surgery recommended by Dr. Gallo we discussed all available options today. He has tried and failed conservative injection options with minimal relief. At this time I think it is appropriate to consider spinal cord stimulator trial. A thorough discussion was had with the patient today regarding the potential risks, benefits, and alternatives to the above treatment plan. Questions were answered to the patient's satisfaction.2. He will call if he wishes to follow-up to discuss further or proceed Preop Surgery Preparation Diabetes history: Yes MRSA history: No or Unknown Postop infection history: No Immune compromised: No Anticoagulants: none External records were reviewed and discussed as above, including imaging, clinical notes, and relevant labs. 1. Lumbar frrjboofebtcvU70.16: Radiculopathy, lumbar region 2. Displacement of lumbar intervertebral discM51.26: Other intervertebral disc displacement, lumbar region 3. Spinal stenosis of lumbar fjavtsO59.062: Spinal stenosis, lumbar region with neurogenic claudication Return to Office Patient will return to the office as needed [facility] 09:10:51 External Records : [facility] ? ? [address] [facility] [id number], Perry M (id #[id number], : 1960) [facility] [address] [facility] [address] [place] [address] Date: 05/25/2023RE: Elliot Mata : 1960, PT ID #[id number] Woodward PA-C, I would like to thank you for referring Elliot Mata to our practice for consultation and evaluation. I have enclosed a copy of the office evaluation for your records. Sincerely, Electronically Signed by: JARRED TIAN MDEncmclaren lapeer region Reason/DateTransition of Care Encounter 05/18/2023 - 09:00AM - [facility] History of Present [id number] male in the office for my initial evaluation and for discussion of prostatitis. He was referred here by [facility]. He was treated for a UTI at the ER in early March. He felt better for a few days and then went back. He was informed he did not have a urinary tract infection, but he did have prostatitis. He just finished a 30 day course of ciprofloxacin. He reports pain in the groin and dysuria. He is experiencing nocturia, urgency, and leakage. He voids frequently during the day, and despite the urgency he is hesitant to void. He has a history of kidney stones. He reports being on tamsulosin for the last for 5 years. He reports procedure with Dr. Snell, possible TURP because he describes shaving of prostate with postoperative retrograde ejaculation.Review of Systems Patient reportsedemabut reports no chest pain, no arm pain on exertion, no shortness of breath when walking, no shortness of breath when lying down, no palpitations, no known heart murmur, and no edema. He reportsabdominal pain and GERDbut reports normal appetite, no nausea, no vomiting, not vomiting blood, no constipation, no diarrhea, no bright red blood per rectum, and no dyspepsia. He reportsurinary incontinence, increased urinary frequency, abnormal urinary flowing, and dysuriabut reports no difficulty urinating, no hematuria, no urinary urgency, and no nocturia. He reportsarthralgias/joint pain, back pain, and neck painbut reports no muscle aches, no muscle weakness, and no swelling in the extremities. He reports no fever, no night sweats, no significant weight gain, no significant weight loss, and no exercise intolerance. He reports no dry eyes, no vision change, and no irritation. He reports no difficulty hearing and no ear pain. He reports no frequent nosebleeds, no nose problems, and no sinus problems. He reports no sore throat, no bleeding gums, no snoring, no dry mouth, no mouth ulcers, no oral abnormalities, and no teeth problems. He reports no cough, no wheezing, no shortness of breath, no coughing up blood, and no sleep apnea. He reports no abnormal mole, no jaundice, no rashes, and no laceration. He reports no loss of consciousness, no weakness, no numbness, no seizures, no dizziness, no migraines, no headaches, no tremor, and no tingling (paresthesia). He reports no depression, no sleep disturbances, feeling safe in a relationship, no alcohol abuse, no anxiety, no hallucinations, and no suicidal thoughts. He reports no fatigue. He reports no swollen glands, no bruising, and no excessive bleeding. He reports no runny nose, no sinus pressure, no itching, no hives, and no frequent sneezing. Physical ExamConstitutional:General Appearance: healthy-appearing, well-nourished, and well-developed. Psychiatric:Orientation: to time, place, and person. Abdomen:Inspection and Palpation: soft, non-distended, and no tenderness.Procedure DocumentationNone recordedAssessment/PlanAnat omic evaluation with cystoscopy. Medical management lower urinary symptoms with alfuzosin and finasteride. 1. CcvwhglnrogL30.9: Inflammatory disease of prostate, unspecified URINALYSIS PANEL, AUTO - ?Specimen source: Urine 2. Benign prostatic hyperplasia with outflow hoqpahgdtmxF83.1: Benign prostatic hyperplasia with lower urinary tract symptoms alfuzosin ER 10 mg tablet,extended release 24 hr - To be submitted on or around 05/25/2023 ? Take 1 tablet(s) every day by oral route for 90 days. ? Qty: (90)?tablet ? Refills: 3 ? Pharmacy: [facility] ? Note to Pharmacy: Discontinue Flomax finasteride 5 mg tablet - Take 1 tablet(s) every day by oral route for 90 days. ? Qty: (90)?tablet ? Refills: 3 ? Pharmacy: [facility] CYSTOSCOPY (SURG) - ?Note to Provider: CYSTOSCOPY - LOCAL Admission Status: Outpatient Anesthesia: Local Diabetes?: N Bowel Prep?: N Latex Allergy: N Robot Assisted?: N Date of surgery/procedure: 06/21/2023 [facility] Procedure code: 40408 Authorization: [facility] (Medicare Replacement/Advantage - PPO) NOTREQUIRED Not Required for [id number]: [facility] (Medicaid Replacement - HMO) NOTREQUIRED [place] for [address] PSA, SERUM OR PLASMA - ?Specimen source: Blood venous URINALYSIS PANEL, AUTO UA Auto/Manual RESULT REFERENCE RANGE SOURCE Clean Catch COLOR Yellow APPEARANCE Cloudy SPECIFIC GRAVITY 1.015 1.003-1.035 pH 7.0 5.0-8.0 LEUKOCYTE ESTERACE Negative Negative NITRITE Negative Negative PROTEIN Negative Negative GLUCOSE >1000 mg/dl Normal KETONES 15 mg/dl (Sm) Negative UROBILINOGEN 1 mg/dl Normal 1 mg/dl BILIRUBIN Negative Negative BLOOD Negative Negative PSA, SERUM OR PLASMA Result: -PSA: 0.30ng/ml Return to Office KAROLINE HERNÁNDEZ PA-C for RECHECK at PAIN MEDICINE on 06/08/2023 at 09:30 AM JARRED TIAN MD for ASC-CYSTO at SURGERY SCHEDULE on 06/21/2023 at 01:15 PM [facility] 05/26/2023 07:27:19 Procedures Surgical History Date Name Laterality Status Provider Name and Address Organization Details Recorded Time 01/27/20 22 Total hip arthroplasty completed Barbara Crain [facility] 03/15/2023 08:38:27 08/08/19 18 Collette fundoplication completed Kristen Cage [facility] 04/19/2023 08:53:28 Cholecystectomy completed [facility] 12/29/2016 14:18:06 Other completed [facility] 12/29/2016 14:18:59 Kidney Stones completed [facility] 12/29/2016 14:19:05 Imaging Results Imaging Date Name Status LastModified by Organiz ation Details LastModified Time 03/15/2023 XR, hip, unilateral, 2 or 3 view completed [address] [facility] [place] [address], [place], [address], 05/19/2023 07:37:55 03/15/2023 XR, lumbosacral spine, 2 or 3 view completed [id number] [facility] [place] [address], [place], [address], 05/19/2023 07:37:55 04/06/2023 MRI, lumbar spine, w/o contrast completed [id number] Radiology [facility] [address] [facility], [place], [phone], 04/07/2023 07:34:29 04/14/2023 XR, lumbosacral spine, 2 or 3 view, bending only completed [email or web address] [facility] Radiology [facility] [address] [facility], [place], [address], 05/19/2023 14:33:38 Procedure Notes None recorded. Medical Equipment None Reported. Allergies Allergen ID Allergen Name Allergen Category Reaction Reaction Severity Criticality Documentation Date Start Date Code Code System Note Provider Name and Address Organization Details Recorded Time 409063 Singulair medicatio n Not available Not available Not available 07/01/20162005 71163 9 RxNorm Comme nt: milenaa perla to ld , SOB;C resánchez d By: Mary Ann jeffers; Creat ed Date: 2005 12:09 :53 PM; Not Available [facility] 6 10:20:20 [id number] Flagyl medicatio n Not available Not available Not available 07/01/2016201286 6 RxNorm Comme nt: Creat ed By: Shivani rosario;Cr eated Date: 2012 9:11: 44 AM; Not Available [facility] 6 10:54:21 [id number] prednison e medicatio n Not available Not available Not available 07/01/20162005 8640 RxNorm Comme nt: AGGRE SSIVE AND VIOLE NT;Cr eated By: Mary Ann jeffers; Creat ed Date: 2005 12:09 :04 PM; Not Available [facility] 6 11:15:51 [id number] Asmanex medicatio n Not available Not available Not available 07/01/20162012 78876 2 RxNorm Comme nt: Creat ed By: Shivani rosario;Cr eated Date: 2012 9:11: 33 AM; Not Available [facility] 6 11:15:51 [id number] Levaquin medicatio n Not available Not available Not available 07/02/20162005 35306 2 RxNorm Comme nt: hives ;Keira pravin By: Mary Ann jeffers; Creat ed Date: 2005 12:08 :14 PM; Not Available [facility] 6 03:55:39 [id number] Gralise medicatio n Not available Not available Not available 07/02/20162012 35180 76 RxNorm Comme nt: Creat ed By: Shivani cheonisreen Marilyn rosario;Cr eated Date: 2012 9:11: 55 AM; Not Available [facility] 6 03:55:39 [id number] Lipitor medicatio n Not available Not available Not available 12/29/2016 85520 5 RxNorm Selenajuaquin Ramsey [facility] 7 14:14:27 358970 baclofen medicatio n vomiting severe high 05/09/20232022 1292 RxNorm Viviana Hernandez [facility] 3 08:25:37 Medications Name Sig Start Date Stop Date Status Note LastModified by Organization Details LastModified Time Seroquel 300 mg tablet Daily 03/15 completed Duration : 10 days;Billy quency: daily;Me dication Descript ion: quetiapi ne; Route:or al; refills: 0 Not Available Not Available Not Available metformin 500 mg tablet Take 1 tablet twice a day by oral route. 03/15 completed Not Available Not Available Not Available gabapenti n 600 mg tablet TAKE ONE TABLET BY MOUTH THREE TIMES DAILY active Not Available Not Available No t Available doxycycli ne hyclate 100 mg capsule TAKE 1 CAPSULE BY MOUTH TWICE A DAY. active Not Available Not Available No t Available atorvasta tin 20 mg tablet TAKE ONE TABLET BY MOUTH EVERY DAY active Not Available Not Available No t Available Neurontin 300 mg capsule Every night at bedtime 03/15 completed Duration : 30 days;Billy quency: qhs;Medi cation Descript ion: gabapent in; Dosage:1 ; Route:or al; refills: 6; Quantity :30 capsule Not Available Not Available Not Available ibuprofen 800 mg tablet TAKE 1 TABLET BY MOUTH THREE TIMES DAILY active Not Available Not Available No t Available promethaz ine 12.5 mg tablet Every six hours 03/15 completed Duration : 30 days;Billy quency: q6h;Alt Frequenc y: prn;Medi cation Descript ion: prometha zine; Dosage:1 ; Route:or al; refills: 6; Quantity :30 tablet Not Available Not Available Not Available amlodipin e 5 mg tablet Take 1 tablet every day by oral route. active Not Available Not Available No t Available ciproflox acin 500 mg tablet TAKE 1 TABLET ORAL ROUTE EVERY 12 HOURS FOR 30 DAYS active Not Available Not Available No t Available sulfameth oxazole 800 mg-trimet hoprim 160 mg tablet TAKE ONE TABLET BY MOUTH EVERY TWELVE HOURS active Not Available Not Available No t Available amantadin e HCl 100 mg capsule TAKE ONE (1) CAPSULE BY MOUTH DAILY FOR TREMORS active Not Available Not Available No t Available propranol ol 10 mg tablet TAKE 1 TABLET BY MOUTH TWICE DAILY FOR TREMORS. active Not Available Not Available No t Available amoxicill in 875 mg tablet TAKE 1 TABLET EVERY 12 HOURS active Not Available Not Available No t Available tamsulosi n 0.4 mg capsule Take 1 capsule every day by oral route. active Not Available Not Available No t Available 50 CubesTouch Ultra Test strips USE DAILY DIRECTED . active Not Available Not Available No t Available baclofen 10 mg tablet TAKE 1 TABLET BY MOUTH AT BEDTIME THEN INCREASE TO TWICE DAILY TOLERATE D AND NEEDED. 05/10 completed Not Available Not Available Not Available esomepraz ole magnesium 40 mg capsule,d elayed release TAKE ONE CAPSULE BY MOUTH TWICE DAILY active Not Available Not Available No t Available divalproe x ER 500 mg tablet,ex tended release 24 hr TAKE 1 TABLET BY MOUTH TWICE DAILY. active Not Available Not Available No t Available Lamictal 100 mg tablet Two times a day 03/15 completed Frequenc y: bid;Medi cation Descript ion: lamotrig ine; Route:or al; refills: 0 Not Available Not Available Not Available diclofena c sodium 75 mg tablet,de layed release Two times a day 03/15 completed Frequenc y: bid;Medi cation Descript ion: diclofen ac; Route:or al; refills: 0 Not Available Not Available Not Available Bentyl 10 mg capsule Four times a day 03/15 completed Frequenc y: qid;Medi cation Descript ion: dicyclom ine; Dosage:1 ; Route:or al; refills: 0 Not Available Not Available Not Available aspirin 81 mg tablet Daily active Frequenc y: daily;Me dication Descript ion: aspirin; Dosage:1 ; Route:or al; refills: 0 Not Available Not Available Not Available mupirocin 2 % topical ointment APPLY A SMALL AMOUNT TO THE NARES 3 TIMES PER DAY FOR 5 DAYS PRIOR TO PROCEDUR E active Not Available Not Available No t Available metoprolo l succinate ER 25 mg tablet,ex tended release 24 hr Take 1 tablet every day by oral route. 03/15 completed Not Available Not Available Not Available Imitrex 100 mg tablet As Directed 03/15 completed Duration : 30 days;Ins truction s: at onset, may repeat x 1 after 2h prn; max 2/24h;Fr equency: as direct.; Medicati on Descript ion: sumatrip flores; Dosage:1 ; Route:or al; refills: 6; Quantity :9 tablet Not Available Not Available Not Available Vitamin D2 1,250 mcg (50,000 unit) capsule Take 1 capsule every week by oral route for 90 days. active Not Available Not Available No t Available propranol ol 20 mg tablet Take 1 tablet 3 times a day by oral route. active Not Available Not Available No t Available ketoconaz ole 2 % topical cream APPLY TO THE AFFECTED AREA(S) ONCE DAILY active Not Available Not Available No t Available brompheni ramine-ps eudoephed rine-DM 2 mg-30 mg-10 mg/5 mL oral syrup TAKE 10ml BY MOUTH EVERY 4 HOURS NEEDED active Not Available Not Available No t Available cefdinir 300 mg capsule TAKE 1 CAPSULE BY MOUTH EVERY 12 HOURS FOR 7 DAYS. active Not Available Not Available No t Available Hibiclens 4 % topical liquid Apply topicall y to procedur e area and scrub in bath the evening prior and morning of your procedur e. 2022 active Not Available Not Available Not Avai lable finasteri de 5 mg tablet TAKE 1 TABLET BY MOUTH ONCE DAILY active Not Available Not Available No t Available glycopyrr olate 2 mg tablet TAKE 1 TABLET BY MOUTH TWICE DAILY active Not Available Not Available No t Available hydroxyzi ne pamoate 25 mg capsule TAKE ONE CAPSULE BY MOUTH THREE TIMES DAILY NEEDED active Not Available Not Available No t Available rosuvasta tin 40 mg tablet TAKE 1 TABLET BY MOUTH ONCE DAILY. active Not Available Not Available No t Available Wellbutri n XL 300 mg 24 hr tablet, extended release Daily 03/15 completed Duration : 30 days;Billy quency: daily;Me dication Descript ion: bupropio n; Dosage:1 ; Route:or al; refills: 0 Not Available Not Available Not Available alfuzosin ER 10 mg tablet,ex tended release 24 hr Take 1 tablet every day by oral route for 90 days. 2022 active Not Available Not Available Not Avai lable pregabali n 100 mg capsule TAKE 1 CAPSULE BY MOUTH THREE TIMES DAILY active Not Available Not Available No t Available Zantac 03/15 completed Duration : 10 days;Med ication Descript ion: ranitidi ne; refills: 0 Not Available Not Available Not Available mesalamin e ER 0.375 gram capsule,e xtended release 24 hr TAKE 4 CAPSULES BY MOUTH DAILY DIRECTED . active Not Available Not Available No t Available Jardiance 10 mg tablet TAKE 1 TABLET BY MOUTH DAILY. active Not Available Not Available No t Available Jardiance 25 mg tablet Take 1 tablet every day by oral route. active Not Available Not Available No t Available mesalamin e 400 mg capsule (with delayed release tablets inside) Take 2 capsules 3 times a day by oral route. active Not Available Not Available No t Available OneTouch Ultra2 Meter USE DIRECTED . active Not Available Not Available No t Available OneTouch Delica Plus Lancet 33 gauge USE DAILY DIRECTED . active Not Available Not Available No t Available Paxlovid 300 mg (150 mg x 2)-100 mg tablets in a dose pack take by mouth as directed on pack active Not Available Not Available No t Available Vitals Date Recorded Body height Body mass index (BMI) Body weight Systolic blood pressure Diastolic blood pressure Provider Name and Address Organization Details Last Updated DateTime 04/14/2023 167.64 cm 35 kg/m2 08730.54 g 120 mm[Hg] 80 mm[Hg] Tena Vila [facility] 3 10:02:09 Date Recorded Body height Body mass index (BMI) Body weight Respiratory rate Pain severity - 0-10 verbal numeric rating [Score] - Reported Systolic blood pressure Diastolic blood pressure Provider Name and Address Organization Details Last Updated DateTime 3 167.64 cm 34.4 kg/m2 37235.1 7 g 14 /min 7 122 mm[Hg] 82 mm[Hg] Kristen Cage [facility] 3 08:50:49 Date Recorded Body height Body mass index (BMI) Body weight Heart rate Oxygen saturation Oxygen saturation in Arterial blood by Pulse oximetry Body temperature Systolic blood pressure Diastolic blood pressure Provider Name and Address Organization Details Last Updated DateTime 3 167.64 cm 34.4 kg/m2 86920.1 7 g 68 /min 99 % 99 % 98.6 [degF] 122 mm[Hg] 84 mm[Hg] Debbie Jese [facility] 3 08:48:38 Date Recorded Body height Body mass index (BMI) Body weight Provider Name and Address Organization Details Last Updated DateTime 05/18/2023 167.64 cm 32.9 kg/m2 44857.84 g Enriqueta Christian [facility] 05/18/2023 15:09:20 Social History Question Answer Notes LastModified by Organizat ion Details LastModified Time Tobacco Smoking Status [facility] 12/29/2016 14:17:46 What Is Your Level Of Alcohol Consumption? None Information not available 12/29/2016 What Is Your Occupation? Retired Information not available 12/29/2016 Marital Status [place] [id number] Informatio n not available 12/29/2016 What Was The Date Of Your Most Recent Tobacco Screening? 04/19/2023 [email or web address] Information not available 04/19/2023 Sex: Male Functional Status None recorded. Mental Status None recorded. Family History Relationship Description Onset Age of this Age Resolved Age Notes LastModified by Organization Details LastModified Time Unspecified Relation Diabetes mellitus arigg Not available 2016 14:15:10 Unspecified Relation Family history of malignant neoplasm Not available 2016 14:15:16 Medical History Condition Response Anxiety Disorder Y False Teeth Y Arthritis Y Chronic Obstructive Pulmonary Disease Y Kidney Stones Y High Cholesterol Y Acid Reflux (GERD) Y Ulcers Y Hypertension Y Depression Y Past Encounters Encounter ID Performer Location Encounter Start Date Encounter Closed Date Diagnosis/Indication Diagnosis SNOMED-CT Code Diagnosis ICD10 Code Diagnosis Note [id number] ODILIA LOFTON MD [facility] OUTREACH CLOSED [address] [address] 12/29/2016 13:32:25 01/03/2017 10:52:03 Cyst of testes 936343129 N44.2 Large prostate 300666803 N40.0 [id number] ANGIE WOODWARD PA-C [facility] [address] [place] [address] 03/15/2023 08:20:06 03/15/2023 10:29:46 History of right hip replacement 3715183930 248248 Z96.641 Assessment : 1 year status post right hip arthroplas ty with lumbar radiculopa thy Plan: Hip appears to be well fixed in proper position. No evidence of complicati on. Most of his pain appears to be more originatin g from his lumbar spine region. Was told in the past that he would benefit from a back surgery. Has underwent multiple injections in his lumbar spine with no benefits. Would like to obtain MRI and refer to neurosurge ry for further evaluation and treatment options. Follow-up with me as needed. May follow-up with Dr. Calvillo for yearly follow-ups . Lumbar radiculopathy 128 033453 M54.16 [id number] SNEHAL GALLO MD NEUROSURG [facility] [address] [place] [phone] 04/14/2023 09:19:30 04/15/2023 08:05:25 Lumbar spondylosis 953297328 M47.896 [id number] FARIBA OLGUIN MD PAIN MEDICINE [address] [place] [address] 04/19/2023 08:34:14 04/19/2023 12:56:04 Displacement of lumbar intervertebral disc 0260510293 M51.26 Lumbar radiculopathy 128 671682 M54.16 Spinal david nosis of lumbar region 60500380 M48.062 [id number] KAROLINE HERNÁNDEZ PA-C PAIN MEDICINE [address] [place], [place] [phone] 2023 08:40:01 05/11/2023 04:26:51 Lumbar radiculopathy 249708371 M54.16 Displaceme nt of lumbar intervertebral disc 8313102945 M51.26 Spinal david nosis of lumbar region 10643824 M48.062 Long-term drug therapy 118376838 Z79.899 [id number] JARRED TIAN MD [facility] [address] [place] [address] 05/18/2023 08:35:58 05/26/2023 19:59:58 Prostatitis 7170508 N41.9 Benign pro static hyperplasia with outflow obstruction 239318865 N40.1 [id number] JARRED TIAN MD SURGERY SCHEDULE [address] [place] [address] 06/21/2023 13:21:12 06/21/2023 13:22:01 Contracture of neck of urinary bladder 1501666443 9103 N32.0 Health Concerns Section Related Observation LastModified by Organization Detai ls LastModified Time None Recorded Concern Status LastModified by Organization Details LastModified Time None Recorded Advance Directives Directive None Recorded Payers Encounter Date Sequence Insurance Name Policy Number Policy Garcia Covered Member ID Garcia Member ID Guarantor Name 04/14/2023 1 [facility] (MEDICARE REPLACEMENT/AD VANTAGE - PPO) DANIELA Zarate [facility] [id number] [facility] 04/19/2023 1 [facility] (MEDICARE REPLACEMENT/AD VANTAGE - PPO) DANIELA Sexton [place] [id number] [facility] 04/19/2023 2 [facility] (MEDICAID REPLACEMENT - HMO) DANIELA Sexton [place] [id number] Elliot Sexton [place] 2023 1 [facility] (MEDICARE REPLACEMENT/AD VANTAGE - PPO) DANIELA Sexton [place] [id number] Elliot [facility] 2023 2 [facility] (MEDICAID REPLACEMENT - HMO) DANIELA Mata [id number] Elliot Sexton [place] 05/18/2023 1 [facility] (MEDICARE REPLACEMENT/AD VANTAGE - PPO) DANIELA Sexton [place] [id number] Elliot [facility] 05/18/2023 2 [facility] ([place]ICA[place] REPLAC[place] - HMO) DANIELA Mata [id number] Elliot Mata 06/21/2023 2 MEDICAID-[facility] - FFS/TRADITIONA Patricia Mata [id number] Elliot Mata 06/21/2023 1 [facility] (MEDICARE REPLACEMENT/AD VANTAGE - PPO) DANIELA Mata [id number] Elliot Mata Notes Date Note Type Note Provider Name and Address Organization Details Recorded Time 04/14/2023 text/html Mr. Mata is 62 years old.He has had low back pain for years. Pain is in the mid lumbar area. Occasionally radiates to the thoracolumbar area. He has right lower extremity pain that radiates to the ankle and the left lower extremity radiates to the knee. Lower extremity symptoms are posterior. His back pain is worse in his lower extremity symptoms.He is done physical therapy. He seen a house painter helper remotely in [place] where they have done injections. It sounds like he has had ablations and perhaps epidural injections.At some point he was seen by a spine surgeon at [facility] who talked him about undergoing surgery. He declined because the spine surgeon would not tell him if he thought his back pain and leg symptoms will get better after surgery. Dr. Calvillo a regional orthopedic surgeon performed a right hip arthroplasty about a year ago. He did well for a while. He saw our orthopedic doctors here and they ordered an MRI scan and have him see me. Apparently, his hip prosthesis looks good. SNEHAL GALLO MD [address] [place] [address], [phone], [facility] 04/14/2023 12:32:12 04/19/2023 text/html Pain Management L-spine GISHReported bypatient.Location: bilateral LE radiation; left buttock pain; right buttock pain Quality:burning;sha rp Severity:current pain level 7/10; worst pain 10/10;interference with sleep Duration:constant; pain at night Onset/Timing:chroni c; 5 years Context:cannot identify Alleviating Factors:position change Aggravating Factors:getting out of bed; going from sit to stand; sitting; walking Associated Symptoms:no bladder compromise; no bowel compromise;weakness ; on right Work Related:no ADL (Activities of Daily Living):do not improve with medication; uses OTC acetaminophen alternating with Ibuprofen, states the gabapentin doesn't work but he still takes it Pain Relief with Current Medications:25%; [address] Impairments with Medications:no Prior Imaging:MRI Prior EMG:none Previous Surgery:none Previous Injections:RAE; Had RAE and RFA 4 years ago in [place] and the pain increased. Previous PT:did not help Previous Vamp Stitcher:none AFRIBA OLGUIN MD [address] [place] [address], [phone], [facility] 04/19/2023 09:37:12 2023 text/html Pain Management L-spine GISHReported bypatient.Location: radiating to the LLE; radiating to the RLE; LBP Quality:numbness;bu rning Severity:current pain level 6-7/10; worst pain 10/10;interference with sleep Duration:constant Alleviating Factors:medication Associated Symptoms:no bladder compromise; no bowel compromise Work Related:no KAROLINE HERNÁNDEZ PA-C [address] [place] [address], [phone], [facility] 2023 10:50:29 05/18/2023 text/html 63-year-old male in the office for my initial evaluation and for discussion of prostatitis. He was referred here by [facility]. He was treated for a UTI at the ER in early March. He felt better for a few days and then went back. He was informed he did not have a urinary tract infection, but he did have prostatitis. He just finished a 30 day course of ciprofloxacin. He reports pain in the groin and dysuria. He is experiencing nocturia, urgency, and leakage. He voids frequently during the day, and despite the urgency he is hesitant to void. He has a history of kidney stones. He reports being on tamsulosin for the last for 5 years. He reports procedure with Dr. Snell, possible TURP because he describes shaving of prostate with postoperative retrograde ejaculation. JARRED TIAN MD [address] [place] [address], [phone], [facility] 05/25/2023 19:30:47
--- OUTSIDE RECORDS SUMMARY | 2024-11-23 08:42 | XMS_ITS | Continuity of Care Document ---
Author Organization [facility] Phone Care Team Providers Care System Trainer Name Role Phone NINA ROSS Admitting NINA ROSS Primary Attending [phone] NINA ROSS Unavailable RADHA JUAN Primary Care ALLERGIES AND ADVERSE REACTIONS ALLERGIES AND ADVERSE REACTIONS Code System Allergy Substance Adverse Reaction Date Reaction (Severity) [place] [id number] RXNorm Levaquin Adverse reaction to substance Not Specified active [id number] on February 18, 2021 8:57:36 PM UTC 8640 RXNorm predniSONE Adverse reaction to substance Not Specified active [id number] on February 18, 2021 8:57:36 PM UTC 17421 RXNorm Singulair Adverse reaction to substance Not Specified active [id number] on February 18, 2021 8:57:36 PM UTC 6922 RXNorm Flagyl Adverse reaction to substance Not Specified active [id number] on February 18, 2021 8:57:36 PM UTC [place] Carbonate (Free Text Allergy) Adverse reaction to substance Not Specified active [id number] on February 18, 2021 8:57:37 PM UTC 09702 RXNorm Lipitor Adverse reaction to substance Not Specified active [id number] on February 18, 2021 9:51:22 PM UTC [place] HFA (Free Text Allergy) Adverse reaction to substance Not Specified active [id number] on February 18, 2021 9:51:22 PM UTC [place] (Free Text Allergy) Adverse reaction to substance Not Specified active [id number] on February 18, 2021 9:51:22 PM UTC RESULTS Patient: ELENI CURRIE Date of : [birth year] 96 0 LABORATORY RESULTS ORDER 100: COMP METABOLIC PA HEIKE (LOINC: 60895-4) ORDER DATE: September 27, 2024 5:40:00 PM UTC Specimen Source: Serum Specimen Type: Serum specime n PERFORMING LAB: [address] [id number] Result Comment: Final Result Date: September 27, 2024 7:19:00 PM UTC (TECH: KNM) LOINC TEST FLAG RESULT REFERENCE RANGE UPDA IGNACIA BY 2951-2 Sodium [Moles/volume ] in Serum or Plasma N 143 mmol/L 137 mmol/L - 147 mmol/L September 27, 2024 7:19:00 PM UTC (TECH: KNM) 2823-3 Potassium [Moles/volume] in Serum or Plasma N 3.9 mmol/L 3.5 mmol/L - 5.1 mmol/L September 27, 2024 7:19:00 PM UTC (TECH: KNM) 2075-0 Chloride [Moles/volume] in Serum or Plasma N 104 mmol/L 98 mmol/L - 110 mmol/L September 27, 2024 7:19:00 PM UTC (TECH: KNM) 8-9 Carbon dioxide, tota l [Moles/volume] in Serum or Plasma N 26 mmol/L 21 mmol/L - 30 mmol/L September 27, 2024 7:19:00 PM UTC (TECH: KNM) 11792-5 Anion gap in Serum o r Plasma N 13 mmol/L 6 mmol/L - 14 mmol/L September 27, 2024 7:19:00 PM UTC (TECH: KNM) 2345-7 Glucose [Mass/volume ] in Serum or Plasma N 103 mg/dL 70 mg/dL - 115 mg/dL September 27, 2024 7:19:00 PM UTC (TECH: KNM) 3094-0 Urea nitrogen [Mass/volume] in Serum or Plasma N 19 mg/dL 9 mg/dL - 20 mg/dL September 27, 2024 7:19:00 PM UTC (TECH: KNM) 2160-0 Creatinine [Mass/volume] in Serum or Plasma N 0.9 mg/dL 0.5 mg/dL - 1.5 mg/dL September 27, 2024 7:19:00 PM UTC (TECH: KNM) 3097-3 Urea nitrogen/Creatinine [Mass Ratio] in Serum or Plasma H 21 - September 27, 2024 7:19:00 PM UTC (TECH: [email or web address]) 63593-6 Glomerular filtratio n rate/1.73 sq M.predicted N 95 mL/min >60 September 27, 2024 7:19:00 PM UTC (TECH: [email or web address]) 43885-0 Osmolality of Serum or Plasma by calculation N 300 mOsmol/Kg 275 mOsmol/Kg - 301 mOsmol/Kg September 27, 2024 7:19:00 PM UTC (TECH: [email or web address]) 2885-2 Protein [Mass/volume ] in Serum or Plasma N 7.2 g/dL 6.2 g/dL - 8.2 g/dL September 27, 2024 7:19:00 PM UTC (TECH: [email or web address]) 1751-7 Albumin [Mass/volume ] in Serum or Plasma N 4.5 g/dL 3.5 g/dL - 5.0 g/dL September 27, 2024 7:19:00 PM UTC (TECH: [email or web address]) 68848-4 Calcium [Mass/volume ] in Serum or Plasma N 9.3 mg/dL 8.5 mg/dL - 10.8 mg/dL September 27, 2024 7:19:00 PM UTC (TECH: [email or web address]) 1975-2 Bilirubin.total [Mass/volume] in Serum or Plasma N 0.8 mg/dL 0.2 mg/dL - 1.3 mg/dL September 27, 2024 7:19:00 PM UT (TECH: [email or web address]) 1920-8 Aspartate aminotransferase [Enzymatic activity/volume] in Serum or Plasma N 32 IU/L 17 IU/L - 59 IU/L September 27, 2024 7:19:00 PM UTC (TECH: [email or web address]) 1742-6 Alanine aminotransferase [Enzymatic activity/volume] in Serum or Plasma N 29 IU/L 0 IU/L - 50 IU/L September 27, 2024 7:19:00 PM UT (TECH: [email or web address]) 89043-6 Alkaline phosphatase.bile [Enzymatic activity/volume] in Serum or Plasma N 115 IU/L 38 IU/L - 126 IU/L September 27, 2024 7:19:00 PM UTC (TECH: [email or web address]) ORDER 200: CBC W/ AUTO DIFF (LOINC: 16978-0) ORDER DATE: September 27, 2024 5:40:00 PM UT Specimen Source: Whole Blood Specimen Type: Whole blood s ample PERFORMING LAB: [address] [id number] Result Comment: Final Result Date: September 27, 2024 6:21:00 PM UTC (TECH: BG) LOINC TEST FLAG RESULT REFERENCE RANGE UPDA IGNACIA BY 6690-2 Leukocytes [#/volume ] in Blood by Automated count N 5.25 K/uL 4.5 K/uL - 11.5 K/uL September 27, 2024 6:21:00 PM UTC (TECH: BG) 789-8 Erythrocytes [#/volume] in Blood by Automated count N 5.07 M/uL 4.0 M/uL - 5.4 M/uL September 27, 2024 6:21:00 PM UTC (TECH: BG) 718-7 Hemoglobin [Mass/volume] in Blood N 15.9 g/dL 14.0 g/dL - 18.0 g/dL September 27, 2024 6:21:00 PM UTC (TECH: BG) 4544-3 Hematocrit [Volume Fraction] of Blood by Automated count N 45.8 % 40 % - 54 % September 27, 2024 6:21:00 PM UTC (TECH: BG) 787-2 Erythrocyte mean corpuscular volume [Entitic volume] by Automated count N 90.3 fL 80.0 fL - 100.0 fL September 27, 2024 6:21:00 PM UTC (TECH: BG) 785-6 Erythrocyte mean corpuscular hemoglobin [Entitic mass] by Automated count N 31.4 pg 26.0 pg - 32.0 pg September 27, 2024 6:21:00 PM UTC (TECH: BG) 786-4 Erythrocyte mean corpuscular hemoglobin concentration [Mass/volume] by Automated count N 34.7 g/dL 32.0 g/dL - 36.0 g/dL September 27, 2024 6:21:00 PM UTC (TECH: BG) 788-0 Erythrocyte distribution width [Ratio] by Automated count N 13.1 % 11.5 % - 14.5 % September 27, 2024 6:21:00 PM UTC (TECH: BG) 777-3 Platelets [#/volume] in Blood by Automated count N 205 K/uL 142 K/uL - 424 K/uL September 27, 2024 6:21:00 PM UTC (TECH: BG) 35426-0 Platelet mean volume [Entitic volume] in Blood by Automated count N 9.5 fL 6.8 fL - 10.2 fL September 27, 2024 6:21:00 PM UTC (TECH: BG) 87379-5 Neutrophils/100 leukocytes in Blood N 56.9 % 50 % - 70 % September 27, 2024 6:21:00 PM UTC (TECH: BG) 29006-3 Lymphocytes/100 leukocytes in Blood N 30.7 % 18.0 % - 42.0 % September 27, 2024 6:21:00 PM UTC (TECH: BG) 77145-4 Monocytes/100 leukocytes in Blood N 8.2 % 2.0 % - 11.0 % September 27, 2024 6:21:00 PM UTC (TECH: BG) 16370-7 Eosinophils/100 leukocytes in Blood H 3.4 % 1.0 % - 3.0 % September 27, 2024 6:21:00 PM UTC (TECH: BG) 23200-1 Basophils/100 leukocytes in Blood N 0.6 % 0.0 % - 2.0 % September 27, 2024 6:21:00 PM UTC (TECH: BG) 74972-7 Immature granulocytes/100 leukocytes in Blood by Automated count N 0.2 % 0.0 % - 0.8 % September 27, 2024 6:21:00 PM UTC (TECH: BG) 63237-7 Nucleated cells [#/volume] in Blood N 0.0 % September 27, 2024 6:21:00 PM UTC (TECH: BG) 86021-7 Neutrophils [#/volume] in Blood N 2.99 K/uL September 27, 2024 6:21:00 PM UTC (TECH: BG) 51655-2 Lymphocytes [#/volume] in Blood N 1.61 K/uL September 27, 2024 6:21:00 PM UTC (TECH: BG) 41352-5 Monocytes [#/volume] in Blood N 0.43 K/uL September 27, 2024 6:21:00 PM UTC (TECH: BG) 64317-0 Eosinophils [#/volume] in Blood N 0.18 K/uL September 27, 2024 6:21:00 PM UTC (TECH: BG) 704-7 Basophils [#/volume] in Blood by Automated count N 0.03 K/uL September 27, 2024 6:21:00 PM UTC (TECH: BG) 16353-1 Immature granulocyte s [#/volume] in Blood N 0.01 K/uL September 27, 2024 6:21:00 PM UTC (TECH: BG) 72227-6 Nucleated cells [#/volume] in Blood N 0.00 k/uL September 27, 2024 6:21:00 PM UTC (TECH: BG) 28847-9 Manual differential comment [interpretation] in Blood Narrative N NO September 27, 2024 6:21:00 PM UTC (TECH: BG) ORDER 300: C-REACTIVE PROTEI N CRP (LOINC: 1987-12) ORDER DATE: September 27, 2024 5:40:00 PM UT Specimen Source: Serum/Plasm a Specimen Type: Acellular blo od (serum or plasma) specimen PERFORMING LAB: [address] [id number] Result Comment: Final Result Date: September 27, 2024 7:30:00 PM UT (TECH: KNM) LOINC TEST FLAG RESULT REFERENCE RANGE UPDA IGNACIA BY 1987- C reactive protein [Mass/volume] in Serum or Plasma N <5.0 mg/L - 10 mg/L September 27 7:30:00 PM UT (TECH: KNM) ORDER 400: PT PROTIME W INR (LOINC: 67038-7) ORDER DATE: September 27, 2024 5:40:00 PM UTC Specimen Source: Plasma Specimen Type: Plasma specim en PERFORMING LAB: [address] [id number] Result Comment: Final Result Date: September 27, 2024 6:33:00 PM UTC (TECH: A/V) LOINC TEST FLAG [place] [address]-1 INR in Platelet poor plasma or blood by Coagulation assay N 11.1 seconds 9.0 seconds - 12.0 seconds September 27, 2024 6:33:00 PM UT (TECH: A/V) 60020-9 INR in Platelet poor plasma by Coagulation assay --post heparin adsorption L 1.1 2.0 - 3.0 September 27, 2024 6:33:00 PM UTC (TECH: A/V) ORDER 500: CELIAC DISEASE CO MPREHENSIVE (LOINC: 20051-5) ORDER DATE: September 27, 2024 5:40:00 PM UTC Specimen Source: Whole Blood Specimen Type: Whole blood s ample PERFORMING LAB: [address] [id number] Result Comment: Final Result Date: September 27, 2024 5:40:00 PM UTC (TECH: LAB) LOINC TEST FLAG RESULT REFERENCE RANGE UPDA IGNACIA BY 2458-8 IgA [Mass/volume] in Serum or Plasma N 307 mg/dL 61-437 September 27, 2024 5:40:00 PM UTC (TECH: LAB) 86058-3 Gliadin peptide IgA Ab [Units/volume] in Serum N 4 units 0-September 27, 2024 5:40:00 PM UTC (TECH: LAB) 89100-2 Gliadin peptide IgG Ab [Units/volume] in Serum N 2 units 0-September 27, 2024 5:40:00 PM UTC (TECH: LAB) 16195-7 Tissue transglutamin ase IgA Ab [Units/volume] in Serum N <2 U/mL 0-3 September 27, 2024 5:40:00 PM UTC (TECH: LAB) 94656-0 Tissue transglutamin ase IgG Ab [Units/volume] in Serum N <2 U/mL 0-5 September 27, 2024 5:40:00 PM UTC (TECH: LAB) 44396-5 Endomysium IgA Ab [Presence] in Serum N Negative Negative September 27, 2024 5:40:00 PM UTC (TECH: LAB) ORDER 600: GAMMA GT (LOINC: 2324-2) ORDER DATE: September 27, 2024 5:40:00 PM UTC Specimen Source: Serum/Plasm a Specimen Type: Acellular blo od (serum or plasma) specimen PERFORMING LAB: [address] [id number] Result Comment: Final Result Date: September 27, 2024 7:20:00 PM UTC (TECH: KNM) LOINC TEST FLAG RESULT REFERENCE RANGE UPDA IGNACIA BY 2324-2 Gamma glutamyl transferase [Enzymatic activity/volume] in Serum or Plasma N 44 IU/L 5 IU/L - 85 IU/L September 27, 2024 7:20:00 PM UTC (TECH: KNM) ORDER 700: IGG IMMUNOGLOBULI NS QUANT (LOINC: 2465-3) ORDER DATE: September 27, 2024 5:40:00 PM UTC Specimen Source: Serum Specimen Type: Serum specime n PERFORMING LAB: [address] [id number] Result Comment: September 28, 2024 1:11:00 PM UTC Performed at: [facility] Result Comment: September 28, 2024 1:11:00 PM UTC [address] [place], [place] [id number] Result Comment: September 28, 2024 1:11:00 PM UTC Specification Manager: Levon Sanchez PhD, Phone: [phone] Result Comment: September 28, 2024 1:11:00 PM UTC Final Result Date: September 28, 2024 5:40:00 PM UTC (TECH: LAB) LOINC TEST FLAG RESULT REFERENCE RANGE UPDA IGNACIA BY 2465-3 IgG [Mass/volume] in Serum or Plasma N 1042 mg/dL 603-1613 September 28, 2024 5:40:00 PM UTC (TECH: LAB) ORDER 800: ACUTE VIRAL HEPAT ITIS PANEL (LOINC: 93008-4) ORDER DATE: September 27, 2024 5:40:00 PM UTC Specimen Source: Serum Specimen Type: Serum specime n PERFORMING LAB: [address] [id number] Result Comment: September 28, 2024 12:09:00 PM UTC . Result Comment: September 28, 2024 12:09:00 PM UTC Not infected with HCV unless early or acute infection is Result Comment: September 28, 2024 12:09:00 PM UTC suspected (which may be delayed in an immunocompromised Result Comment: September 28, 2024 12:09:00 PM UTC individual), or other evidence exists to indicate HCV Result Comment: September 28, 2024 12:09:00 PM UTC infection. Result Comment: September 28, 2024 12:09:00 PM UTC Performed at: [facility] Result Comment: September 28, 2024 12:09:00 PM UTC [address] [place], [place] [id number] Result Comment: September 28, 2024 12:09:00 PM UTC Specification Manager: Levon Sanchez PhD, Phone: [phone] Result Comment: September 28, 2024 12:09:00 PM UTC Final Result Date: September 27, 2024 5:40:00 PM UTC (TECH: LAB) LOINC TEST FLAG RESULT [place] [address]-5 Hepatitis A virus IgM Ab [Presence] in Serum N Negative Negative September 27, 2024 5:40:00 PM UTC (TECH: LAB) 5196-1 Hepatitis B virus surface Ag [Presence] in Serum or Plasma by Immunoassay N Negative Negative September 27, 2024 5:40:00 PM UTC (TECH: LAB) 76150-1 Hepatitis B virus core IgM Ab [Presence] in Serum or Plasma by Immunoassay N Negative Negative September 27, 2024 5:40:00 PM UTC (TECH: LAB) 95755-4 Hepatitis C virus Ab Signal/Cutoff in Serum or Plasma by Immunoassay N Non Reactive Non Reactive September 27, 2024 5:40:00 PM UTC (TECH: LAB) 95780-4 Reference lab test results N Comment September 27, 2024 5:40:00 PM UTC (TECH: LAB) ORDER 900: JOSEFINA SCREEN W REFL EX (LOINC: 8061-4) ORDER DATE: September 27, 2024 5:40:00 PM UTC Specimen Source: Serum Specimen Type: Serum specime n PERFORMING LAB: [address] [id number] Result Comment: September 28, 2024 6:09:00 PM UTC . Result Comment: September 28, 2024 6:09:00 PM UTC Autoantibody Disease Association Result Comment: September 28, 2024 6:09:00 PM UTC Result Comment: September 28, 2024 6:09:00 PM UTC Result Comment: September 28, 2024 6:09:00 PM UTC Condition Frequency Result Comment: September 28, 2024 6:09:00 PM UTC Result Comment: September 28, 2024 6:09:00 PM UTC --------- Result Comment: September 28, 2024 6:09:00 PM UTC Result Comment: September 28, 2024 6:09:00 PM UTC Antinuclear Antibody, SLE, mixed connective Result Comment: September 28, 2024 6:09:00 PM UTC Direct (JOSEFINA-D) tissue diseases Result Comment: September 28, 2024 6:09:00 PM UTC --------- Result Comment: September 28, 2024 6:09:00 PM UTC Result Comment: September 28, 2024 6:09:00 PM UTC dsDNA SLE 40 - 60% Result Comment: September 28, 2024 6:09:00 PM UTC Result Comment: September 28, 2024 6:09:00 PM UTC --------- Result Comment: September 28, 2024 6:09:00 PM UTC Result Comment: September 28, 2024 6:09:00 PM UTC Chromatin Drug induced SLE 90% Result Comment: September 28, 2024 6:09:00 PM UTC Result Comment: September 28, 2024 6:09:00 PM UTC SLE 48 - 97% Result Comment: September 28, 2024 6:09:00 PM UTC Result Comment: September 28, 2024 6:09:00 PM UTC --------- Result Comment: September 28, 2024 6:09:00 PM UTC Result Comment: September 28, 2024 6:09:00 PM UTC SSA (Ro) SLE 25 - 35% Result Comment: September 28, 2024 6:09:00 PM UTC Result Comment: September 28, 2024 6:09:00 PM UTC Sjogren's Syndrome 40 - 70% Result Comment: September 28, 2024 6:09:00 PM UTC Result Comment: September 28, 2024 6:09:00 PM UTC Lupus 100% Result Comment: September 28, 2024 6:09:00 PM UTC Result Comment: September 28, 2024 6:09:00 PM UTC --------- Result Comment: September 28, 2024 6:09:00 PM UTC Result Comment: September 28, 2024 6:09:00 PM UTC SSB (La) SLE 10% Result Comment: September 28, 2024 6:09:00 PM UTC Result Comment: September 28, 2024 6:09:00 PM UTC Sjogren's Syndrome 30% Result Comment: September 28, 2024 6:09:00 PM UTC Result Comment: September 28, 2024 6:09:00 PM UTC --------- Result Comment: September 28, 2024 6:09:00 PM UTC Result Comment: September 28, 2024 6:09:00 PM UTC Sm (anti-Jackson) SLE 15 - 30% Result Comment: September 28, 2024 6:09:00 PM UTC Result Comment: September 28, 2024 6:09:00 PM UTC --------- Result Comment: September 28, 2024 6:09:00 PM UTC Result Comment: September 28, 2024 6:09:00 PM UTC PYROMETER TEMPERATURE REGULATOR Mixed Connective Tissue Result Comment: September 28, 2024 6:09:00 PM UTC Disease 95% Result Comment: September 28, 2024 6:09:00 PM UTC Result Comment: September 28, 2024 6:09:00 PM UTC (U1 nRNP, SLE 30 - 50% Result Comment: September 28, 2024 6:09:00 PM UTC Result Comment: September 28, 2024 6:09:00 PM UTC anti-ribonucleoprotein) Polymyositis and/or Result Comment: September 28, 2024 6:09:00 PM UTC Dermatomyositis 20% Result Comment: September 28, 2024 6:09:00 PM UTC Result Comment: September 28, 2024 6:09:00 PM UTC --------- Result Comment: September 28, 2024 6:09:00 PM UTC Result Comment: September 28, 2024 6:09:00 PM UTC Scl-70 (antiDNA Scleroderma (diffuse) 20 - 35% Result Comment: September 28, 2024 6:09:00 PM UTC Result Comment: September 28, 2024 6:09:00 PM UTC topoisomerase) Crest 13% Result Comment: September 28, 2024 6:09:00 PM UTC Result Comment: September 28, 2024 6:09:00 PM UTC --------- Result Comment: September 28, 2024 6:09:00 PM UTC Result Comment: September 28, 2024 6:09:00 PM UTC May-1 Polymyositis and/or Result Comment: September 28, 2024 6:09:00 PM UTC Dermatomyositis 20 - 40% Result Comment: September 28, 2024 6:09:00 PM UTC Result Comment: September 28, 2024 6:09:00 PM UTC --------- Result Comment: September 28, 2024 6:09:00 PM UTC Result Comment: September 28, 2024 6:09:00 PM UTC Centromere B Scleroderma - Crest Result Comment: September 28, 2024 6:09:00 PM UTC variant 80% Result Comment: September 28, 2024 6:09:00 PM UTC Result Comment: September 28, 2024 6:09:00 PM UTC Performed at: [facility] Result Comment: September 28, 2024 6:09:00 PM UTC [address] [place], [place] [id number] Result Comment: September 28, 2024 6:09:00 PM UTC Specification Manager: Levon Sanchez PhD, Phone: [phone] Result Comment: September 28, 2024 6:09:00 PM UTC Result Comment: September 28, 2024 7:10:00 PM UTC . Result Comment: September 28, 2024 7:10:00 PM UTC Autoantibody Disease Association Result Comment: September 28, 2024 7:10:00 PM UTC Result Comment: September 28, 2024 7:10:00 PM UTC Result Comment: September 28, 2024 7:10:00 PM UTC Condition Frequency Result Comment: September 28, 2024 7:10:00 PM UTC Result Comment: September 28, 2024 7:10:00 PM UTC --------- Result Comment: September 28, 2024 7:10:00 PM UTC Result Comment: September 28, 2024 7:10:00 PM UTC Antinuclear Antibody, SLE, mixed connective Result Comment: September 28, 2024 7:10:00 PM UTC Direct (JOSEFINA-D) tissue diseases Result Comment: September 28, 2024 7:10:00 PM UTC --------- Result Comment: September 28, 2024 7:10:00 PM UTC Result Comment: September 28, 2024 7:10:00 PM UTC dsDNA SLE 40 - 60% Result Comment: September 28, 2024 7:10:00 PM UTC Result Comment: September 28, 2024 7:10:00 PM UTC --------- Result Comment: September 28, 2024 7:10:00 PM UTC Result Comment: September 28, 2024 7:10:00 PM UTC Chromatin Drug induced SLE 90% Result Comment: September 28, 2024 7:10:00 PM UTC Result Comment: September 28, 2024 7:10:00 PM UTC SLE 48 - 97% Result Comment: September 28, 2024 7:10:00 PM UTC Result Comment: September 28, 2024 7:10:00 PM UTC --------- Result Comment: September 28, 2024 7:10:00 PM UTC Result Comment: September 28, 2024 7:10:00 PM UTC SSA (Ro) SLE 25 - 35% Result Comment: September 28, 2024 7:10:00 PM UTC Result Comment: September 28, 2024 7:10:00 PM UTC Sjogren's Syndrome 40 - 70% Result Comment: September 28, 2024 7:10:00 PM UTC Result Comment: September 28, 2024 7:10:00 PM UTC Lupus 100% Result Comment: September 28, 2024 7:10:00 PM UTC Result Comment: September 28, 2024 7:10:00 PM UTC --------- Result Comment: September 28, 2024 7:10:00 PM UTC Result Comment: September 28, 2024 7:10:00 PM UTC SSB (La) SLE 10% Result Comment: September 28, 2024 7:10:00 PM UTC Result Comment: September 28, 2024 7:10:00 PM UTC Sjogren's Syndrome 30% Result Comment: September 28, 2024 7:10:00 PM UTC Result Comment: September 28, 2024 7:10:00 PM UTC --------- Result Comment: September 28, 2024 7:10:00 PM UTC Result Comment: September 28, 2024 7:10:00 PM UTC Sm (anti-Jackson) SLE 15 - 30% Result Comment: September 28, 2024 7:10:00 PM UTC Result Comment: September 28, 2024 7:10:00 PM UTC --------- Result Comment: September 28, 2024 7:10:00 PM UTC Result Comment: September 28, 2024 7:10:00 PM UTC PYROMETER TEMPERATURE REGULATOR Mixed Connective Tissue Result Comment: September 28, 2024 7:10:00 PM UTC Disease 95% Result Comment: September 28, 2024 7:10:00 PM UTC Result Comment: September 28, 2024 7:10:00 PM UTC (U1 nRNP, SLE 30 - 50% Result Comment: September 28, 2024 7:10:00 PM UTC Result Comment: September 28, 2024 7:10:00 PM UTC anti-ribonucleoprotein) Polymyositis and/or Result Comment: September 28, 2024 7:10:00 PM UTC Dermatomyositis 20% Result Comment: September 28, 2024 7:10:00 PM UTC Result Comment: September 28, 2024 7:10:00 PM UTC --------- Result Comment: September 28, 2024 7:10:00 PM UTC Result Comment: September 28, 2024 7:10:00 PM UTC Scl-70 (antiDNA Scleroderma (diffuse) 20 - 35% Result Comment: September 28, 2024 7:10:00 PM UTC Result Comment: September 28, 2024 7:10:00 PM UTC topoisomerase) Crest 13% Result Comment: September 28, 2024 7:10:00 PM UTC Result Comment: September 28, 2024 7:10:00 PM UTC --------- Result Comment: September 28, 2024 7:10:00 PM UTC Result Comment: September 28, 2024 7:10:00 PM UTC May-1 Polymyositis and/or Result Comment: September 28, 2024 7:10:00 PM UTC Dermatomyositis 20 - 40% Result Comment: September 28, 2024 7:10:00 PM UTC Result Comment: September 28, 2024 7:10:00 PM UTC --------- Result Comment: September 28, 2024 7:10:00 PM UTC Result Comment: September 28, 2024 7:10:00 PM UTC Centromere B Scleroderma - Crest Result Comment: September 28, 2024 7:10:00 PM UTC variant 80% Result Comment: September 28, 2024 7:10:00 PM UTC Result Comment: September 28, 2024 7:10:00 PM UTC Performed at: [facility] Result Comment: September 28, 2024 7:10:00 PM UTC [address] [place], [place] [id number] Result Comment: September 28, 2024 7:10:00 PM UTC Specification Manager: Levon Sanchez PhD, Phone: [phone] Result Comment: September 28, 2024 7:10:00 PM UTC Final Result Date: September 27, 2024 5:40:00 PM UTC (TECH: LAB) LOINC TEST FLAG RESULT REFERENCE RANGE UPDA IGNACIA BY 8061-4 Nuclear Ab [Presence ] in Serum Positive Negative September 27, 2024 5:40:00 PM UTC (TECH: LAB) 5130-0 DNA double strand Ab [Units/volume] in Serum N <1 IU/mL 0-9 September 27, 2024 5:40:00 PM UTC (TECH: LAB) 99522-9 Ribonucleoprotein extractable nuclear Ab [Units/volume] in Serum H >8.0 AI 0.0-0.9 September 27, 2024 5:40:00 PM UTC (TECH: LAB) 87193-2 SCL-70 extractable nuclear Ab [Units/volume] in Serum N <0.2 AI 0.0-0.9 September 27, 2024 5:40:00 PM UTC (TECH: LAB) 55694-1 Sjogrens syndrome-A extractable nuclear Ab [Units/volume] in Serum N <0.2 AI 0.0-0.9 September 27, 2024 5:40:00 PM UTC (TECH: LAB) 22428-8 Sjogrens syndrome-B extractable nuclear Ab [Units/volume] in Serum N <0.2 AI 0.0-0.9 September 27, 2024 5:40:00 PM UTC (TECH: LAB) 06799-1 Chromatin Ab [Units/volume] in Serum or Plasma N <0.2 AI 0.0-0.9 September 27, 2024 5:40:00 PM UTC (TECH: LAB) 04931-7 May-1 extractable nuclear Ab [Units/volume] in Serum N <0.2 AI 0.0-0.9 September 27, 2024 5:40:00 PM UTC (TECH: LAB) 74052-0 Centromere protein B Ab [Units/volume] in Serum N <0.2 AI 0.0-0.9 September 27, 2024 5:40:00 PM UTC (TECH: LAB) 48319-2 Nuclear Ab [Titer] i n Serum N <0.2 AI 0.0-0.9 September 27, 2024 5:40:00 PM UTC (TECH: LAB) 08514-1 Reference lab test results N Comment September 27, 2024 5:40:00 PM UTC (TECH: LAB) ORDER 1000: MITOCHONDRIAL AN TIBODIES (LOINC: 33834-1) ORDER DATE: September 27, 2024 5:40:00 PM UTC Specimen Source: Serum Specimen Type: Serum specime n PERFORMING LAB: [address] [id number] Result Comment: September 28, 2024 7:10:00 PM UTC Negative 0.0 - 20.0 Result Comment: September 28, 2024 7:10:00 PM UTC Equivocal 20.1 - 24.9 Result Comment: September 28, 2024 7:10:00 PM UTC Positive >24.9 Result Comment: September 28, 2024 7:10:00 PM UTC . Result Comment: September 28, 2024 7:10:00 PM UTC Mitochondrial (M2) Antibodies are found in 90-96% of Result Comment: September 28, 2024 7:10:00 PM UTC patients with primary biliary cirrhosis. Result Comment: September 28, 2024 7:10:00 PM UTC Performed at: [facility] Result Comment: September 28, 2024 7:10:00 PM UTC [address], [place] [id number] Result Comment: September 28, 2024 7:10:00 PM UTC Specification Manager: Levon Sanchez PhD, Phone: [phone] Result Comment: September 28, 2024 7:10:00 PM UTC Final Result Date: September 28, 2024 5:40:00 PM UTC (TECH: LAB) LOINC TEST FLAG [place] [address]-5 Mitochondria M2 IgG Ab [Units/volume] in Serum N <20.0 Units 0.0-20.0 September 28, 2024 5:40:00 PM UTC (TECH: LAB) ORDER 1100: SMOOTH MUSCLE AC TIN AB'S (LOINC: 39088-3) ORDER DATE: September 27, 2024 5:40:00 PM UTC Specimen Source: Serum Specimen Type: Serum specime n PERFORMING LAB: [address] [id number] Result Comment: September 28, 2024 7:10:00 PM UTC Negative 0 - 19 Result Comment: September 28, 2024 7:10:00 PM UTC Weak positive 20 - 30 Result Comment: September 28, 2024 7:10:00 PM UTC Moderate to strong positive >30 Result Comment: September 28, 2024 7:10:00 PM UTC . Result Comment: September 28, 2024 7:10:00 PM UTC Actin Antibodies are found in 52-85% of patients with Result Comment: September 28, 2024 7:10:00 PM UTC autoimmune hepatitis or chronic active hepatitis and Result Comment: September 28, 2024 7:10:00 PM UTC in 22% of patients with primary biliary cirrhosis. Result Comment: September 28, 2024 7:10:00 PM UTC Performed at: [employer] Result Comment: September 28, 2024 7:10:00 PM UTC [address] [place], [place] [id number] Result Comment: September 28, 2024 7:10:00 PM UTC Specification Manager: Levon Sanchez PhD, Phone: [phone] Result Comment: September 28, 2024 7:10:00 PM UTC Final Result Date: September 28, 2024 5:40:00 PM UTC (TECH: LAB) LOINC TEST FLAG [place] [address]-8 Actin IgG Ab [Units/volume] in Serum or Plasma N 3 Units 0-19 September 28 5:40:00 PM UTC (TECH: LAB) ORDER 1200: ALPHA 1 ANTITRYP TOTAL AND PHENO (LOINC: 1825-9) ORDER DATE: September 27, 2024 5:40:00 PM UTC Specimen Source: Serum/Plasm a Specimen Type: Acellular blo od (serum or plasma) specimen PERFORMING LAB: [address] [id number] Result Comment: September 28, 2024 6:09:00 PM UTC Performed at: [employer] Result Comment: September 28, 2024 6:09:00 PM UTC [address] [place], [place] [id number] Result Comment: September 28, 2024 6:09:00 PM UTC Specification Manager: Levon Sanchez PhD, Phone: [phone] Result Comment: September 28, 2024 6:09:00 PM UTC Performed at: [facility] Result Comment: September 28, 2024 6:09:00 PM UTC [address] [place], [place] [id number] Result Comment: September 28, 2024 6:09:00 PM UTC Specification Manager: Ike Berrios MD, Phone: [phone] Result Comment: September 28, 2024 6:09:00 PM UTC Result Comment: October 05, 2024 2:08:00 AM UTC MM Phenotype is considered to be normal , producing Result Comment: October 05, 2024 2:08:00 AM UTC normal serum levels of xjmji-7-gswneutd inhibitor and Result Comment: October 05, 2024 2:08:00 AM UTC not associated with clinical disease. Associated A1A Result Comment: October 05, 2024 2:08:00 AM UTC total serum levels in other phenotypes and their Result Comment: October 05, 2024 2:08:00 AM UTC incidence in the general population are shown in the Result Comment: October 05, 2024 2:08:00 AM UTC table below. Result Comment: October 05, 2024 2:08:00 AM UTC Phenotype Population % function A-1-AT Conc.* Result Comment: October 05, 2024 2:08:00 AM UTC Incidence % compared to MM (Typical Range) Result Comment: October 05, 2024 2:08:00 AM UTC MM 86.5% 100% (96 - 189) Result Comment: October 05, 2024 2:08:00 AM UTC MS 8.0% 86% (83 - 161) Result Comment: October 05, 2024 2:08:00 AM UTC MZ 3.9% 61% (60 - 111) Result Comment: October 05, 2024 2:08:00 AM UTC FM 0.4% 100% (93 - 191) Result Comment: October 05, 2024 2:08:00 AM UTC SZ 0.3% 41% (42 - 75) Result Comment: October 05, 2024 2:08:00 AM UTC SS 0.1% 64% (62 - 119) Result Comment: October 05, 2024 2:08:00 AM UTC ZZ 0.05% 19% (16 - 38) Result Comment: October 05, 2024 2:08:00 AM UTC FS 0.05% 70% (70 - 128) Result Comment: October 05, 2024 2:08:00 AM UTC FZ Unknown 46% (44 - 88) Result Comment: October 05, 2024 2:08:00 AM UTC FF Unknown Unknown Result Comment: October 05, 2024 2:08:00 AM UTC *A-1-AT concentration in the homozygous MM phenotype Result Comment: October 05, 2024 2:08:00 AM UTC is taken as the reference normal. Percent deficiency Result Comment: October 05, 2024 2:08:00 AM UTC in each phenotype is reported relative to this Result Comment: October 05, 2024 2:08:00 AM UTC reference. Ranges used to confirm phenotype. Result Comment: October 05, 2024 2:08:00 AM UTC Performed at: [facility] Result Comment: October 05, 2024 2:08:00 AM UTC [address] [place], [place] [id number] Result Comment: October 05, 2024 2:08:00 AM UTC Specification Manager: Levon Sanchez PhD, Phone: [phone] Result Comment: October 05, 2024 2:08:00 AM UTC [facility] Result Comment: October 05, 2024 2:08:00 AM UTC [facility] [place], [place] [id number] Result Comment: October 05, 2024 2:08:00 AM UTC Specification Manager: Ike Berrios MD, Phone: [phone] Result Comment: October 05, 2024 2:08:00 AM UTC Final Result Date: September 27, 2024 5:40:00 PM UTC (TECH: LAB) LOINC TEST FLAG RESULT REFERENCE RANGE UPDA IGNACIA BY 1825-9 Alpha 1 antitrypsin [Mass/volume] in Serum or Plasma N 167 mg/dL 101-187 September 27, 2024 5:40:00 PM UTC (TECH: LAB) 6770-2 Alpha 1 antitrypsin phenotyping [Identifier] in Serum or Plasma by Immunofixation N MM September 27, 2024 5:40:00 PM UTC (TECH: LAB) ORDER 1300: IRON STUDY W FE/ TIBC/UIBC/ SAT (LOINC: 98365-9) ORDER DATE: September 27, 2024 5:40:00 PM UTC Specimen Source: Serum Specimen Type: Serum specime n PERFORMING LAB: [address] [id number] Result Comment: Final Result Date: September 27, 2024 7:30:00 PM UTC (TECH: KNM) LOINC TEST FLAG RESULT REFERENCE RANGE UPDA IGNACIA BY 2498-4 Iron [Mass/volume] in Serum or Plasma N 114 ug/dL 49 ug/dL - 181 ug/dL September 27, 2024 7:30:00 PM UTC (TECH: KNM) 2500-7 Iron binding capacity [Mass/volume] in Serum or Plasma N 297 ug/dL 261 ug/dL - 462 ug/dL September 27, 2024 7:30:00 PM UTC (TECH: KNM) 2501-5 Iron binding capacity.unsaturat ed [Mass/volume] in Serum or Plasma N 183 ug/dl 150 ug/dl - 375 ug/dl September 27, 2024 7:30:00 PM UTC (TECH: KNM) 2502-3 Iron saturation [Mass Fraction] in Serum or Plasma N 38 % 15 % - 55 % September 27, 2024 7:30:00 PM UTC (TECH: KNM) ORDER 1400: FERRITIN (LOINC: 2276-4) ORDER DATE: September 27, 2024 5:40:00 PM UTC Specimen Source: Serum Specimen Type: Serum specime n PERFORMING LAB: [address] [id number] Result Comment: Final Result Date: September 27, 2024 7:54:00 PM UTC (TECH: KNM) LOINC TEST FLAG RESULT REFERENCE RANGE UPDA IGNACIA BY 2276-4 Ferritin [Mass/volume] in Serum or Plasma N 202 ng/mL 5 ng/mL - 244 ng/mL September 27, 2024 7:54:00 PM UTC (TECH: KNM) ORDER 1500: CERULOPLASMIN (L OINC: 2064-4) ORDER DATE: September 27, 2024 5:40:00 PM UTC Specimen Source: Serum/Plasm a Specimen Type: Acellular blo od (serum or plasma) specimen PERFORMING LAB: [address] [id number] Result Comment: September 28, 2024 6:09:00 PM UTC Performed at: [facility] Result Comment: September 28, 2024 6:09:00 PM UTC [address] [place] [id number] Result Comment: September 28, 2024 6:09:00 PM UTC Specification Manager: Levon Sanchez PhD, Phone: [phone] Result Comment: September 28, 2024 6:09:00 PM UTC Final Result Date: September 28, 2024 5:40:00 PM UTC (TECH: LAB) LOINC TEST FLAG RESULT REFERENCE RANGE UPDA IGNACIA BY 2063-11 Ceruloplasmin [Mass/volume] in Serum or Plasma N 22.6 mg/dL 16.0-31.0 September 28, 2024 5:40:00 PM UTC (TECH: LAB) ORDER 1600: HEREDITARY HEMOC HROMATOSIS (LOINC: 38969-1) ORDER DATE: September 27, 2024 5:40:00 PM UTC Specimen Source: Serum/Plasm a Specimen Type: Acellular blo od (serum or plasma) specimen PERFORMING LAB: [address] [id number] Result Comment: October 01, 2024 11:09:00 PM UTC Technical Component performed at [facility] Result Comment: October 01, 2024 11:09:00 PM UT Professional Component performed by: Result Comment: October 01, 2024 11:09:00 PM UT . Result Comment: October 01, 2024 11:09:00 PM UT [employer] Result Comment: October 01, 2024 11:09:00 PM UT Baldev Chavis, Ph.D., [facility] Result Comment: October 01, 2024 11:09:00 PM UT Director, Molecular Genetics Result Comment: October 01, 2024 11:09:[address] Result Comment: October 01, 2024 11:09:00 [facility] [id number] Result Comment: October 01, 2024 11:09:00 PM UTC [facility] Result Comment: October 01, 2024 11:09:00 PM UTC [address], [facility], [place] [id number] Result Comment: October 01, 2024 11:09:00 PM UTC Specification Manager: Henny Granados [facility], Phone: [phone] Result Comment: October 01, 2024 11:09:00 PM UTC Final Result Date: September 27, 2024 5:40:00 PM UTC (TECH: LAB) LOINC TEST FLAG [place] [address]-0 HFE gene mutation analysis in Blood or Tissue by Molecular genetics method Narrative N Comment September 27 5:40:00 PM UTC (TECH: LAB) 48700-5 Reviewer initials N Comment Fe brugrinnell 2024 5:40:00 PM UTC (TECH: LAB) ORDER 1700: RICKS FIBROSURE P FERNANDA (LOINC: 52228-9) ORDER DATE: September 27, 2024 5:40:00 PM UTC Specimen Source: Serum/Plasm a Specimen Type: Acellular blo od (serum or plasma) specimen PERFORMING LAB: [address] [id number] Result Comment: October 02, 2024 11:09:00 AM UTC . Result Comment: October 02, 2024 11:09:00 AM UTC The analytes tested are performed by [employer] Result Comment: October 02, 2024 11:09:00 AM UTC methods. Not intended for use with other diagnostic Result Comment: October 02, 2024 11:09:00 AM UTC considerations. Result Comment: October 02, 2024 11:09:00 AM UTC Final Result Date: September 27, 2024 5:40:00 PM UTC (TECH: LAB) LOINC TEST FLAG RESULT REFERENCE RANGE UPDA IGNACIA BY 2345-7 Glucose [Mass/volume ] in Serum or Plasma H 104 mg/dL 70-99 September 27 5:40:00 PM UTC (TECH: LAB) 2571-8 Triglyceride [Mass/v olume] in Serum or Plasma N 103 mg/dL 0-149 September 27, 2024 5:40:00 PM UTC (TECH: LAB) 67819-0 Cholesterol/Total in Stone N 139 mg/dL 100 -199 September 27, 2024 5:40:00 PM UTC (TECH: LAB) 1920-8 Aspartate aminotrans ferase [Enzymatic activity/volume] in Serum or Plasma N 30 IU/L 0-40 September 27, 2024 5:40:00 PM UTC (TECH: LAB) 1975-2 Bilirubin.total [Mass/volume] in Serum or Plasma N 0.4 mg/dL 0.0-1.2 September 27 5:40:00 PM UTC (TECH: LAB) 81636-2 Cqjpp-5-Dtvffprkwqem n [Mass/volume] in Unspecified specimen N 167 mg/dL 110-276 September 5:40:00 PM UTC (TECH: LAB) 2324-2 Gamma glutamyl trans ferase [Enzymatic activity/volume] in Serum or Plasma N 39 IU/L 0-65 September 27, 2024 5:40:00 PM UTC (TECH: LAB) 4542-7 Haptoglobin [Mass/vo lume] in Serum or Plasma N 117 mg/dL 32-363 September 27, 2024 5:40:00 PM UTC (TECH: LAB) 1869-7 Apolipoprotein A-I [Mass/volume] in Serum or Plasma N 157 mg/dL 101-178 September 27 5:40:00 PM UTC (TECH: LAB) 1742-6 Alanine aminotransfe rase [Enzymatic activity/volume] in Serum or Plasma N 27 IU/L 0-55 September 27, 2024 5:40:00 PM UTC (TECH: LAB) 76154-9 Nonalcoholic steatohepatitis score in Serum or Plasma H 0.62 0.00-0.25 September 27 5:40:00 PM UTC (TECH: LAB) 71165-2 Nonalcoholic steatohepatitis score in Serum or Plasma N Comment September 27 5:40:00 PM UTC (TECH: LAB) 92503-1 Nonalcoholic steatohepatitis grade in Serum or Plasma Qualitative N Comment Febr [id number] 5:40:00 PM UTC (TECH: LAB) 20312-8 Fibrosis stage N F0-F1 Febru linnette 2024 5:40:00 PM UTC (TECH: LAB) 05538-9 Fibrosis score N 0.21 0.00-0.21 2024 5:40:00 PM UTC (TECH: LAB) 87015-1 Cystic fibrosis [facility] orn screening panel N Comment September 27 5:40:00 PM UTC (TECH: LAB) 23565-1 Fibrosis stage N Comment 2024 5:40:00 PM UTC (TECH: LAB) 37327-3 Liver steatosis scor e in Serum or Plasma H 0.43 0.00-0.40 September 27 5:40:00 PM UTC (TECH: LAB) 62292-2 Liver steatosis scor e in Serum or Plasma N Comment September 27 5:40:00 PM UTC (TECH: LAB) 77013-4 Test performance information in Specimen Narrative N Comment September 27 5:40:00 PM UTC (TECH: LAB) 18897-4 Reference lab test results N Comment September 27, 2024 5:40:00 PM UTC (TECH: LAB) 83703-8 Nonalcoholic steatohepatitis interpretation in Serum or Plasma Qualitative N Comment September 27, 2024 5:40:00 PM UTC (TECH: LAB) 20196-7 Reference lab test method N Comment September 27, 2024 5:40:00 PM UTC (TECH: LAB) LABORATORY NARRATIVE RESULTS Information is not available RADIOLOGY RESULTS Information is not available PATHOLOGY NARRATIVE RESULTS Information is not available MICROBIOLOGY RESULTS No Micro Labs/Results Exist for Patient BLOOD ADMIN RESULTS Information is not available MEDICATIONS HOME MEDICATIONS Status RXNORM NDC Medication Dose Route Frequency Dates Comments Reported By Updated By Drug Treatment Unknown DISCHARGE MEDICATIONS Status RXNORM NDC Medication Dose Route Frequency Dates Comments Physician Updated By No Discharge Medication Info rmation Available INPATIENT MEDICATIONS Status RXNORM NDC Medication Dose Route Frequency Rat e Quantity Dates Comments Physician Updated By No Inpatient Medication Info rmation Available SOCIAL HISTORY SOCIAL HISTORY SNOMED-CT Social History Element Description Effective Dates Offered Cessation Comment UpdatedBy [id number] Smoking Status Unknown If Ever Smoked SOCIAL HISTORY - Gender Sex: Male SOCIAL HISTORY - Status : status i nformation is not available Intention in Next Year: intention information is not available SOCIAL HISTORY - Sexual Behavior Sexual Orientation Gender Identity SNOMED-CT Description SNO MED -CT Description Activity Level No of Partners Partner Type UpdatedBy Information is not available HEALTH CONCERNS Problems Concern Status Health Concern problem infor mation not available. Smoking Status Status Years Used Consumed packs p er day Health Concern smoking histo ry information not available. Family History Concern Status Health Concern family histor y information not available. ENCOUNTERS ENCOUNTER INFORMATION Reason for Visit LAB Admission September 27, 2024 5:29:[address] [address] Discharge September 28, 2024 1:29:00 AM [facility] DISCHARGED TO HOME OR SELF CARE ENCOUNTER DIAGNOSES Notes information is not julio ilable. Code System Diagnosis Onset Date Diagnosis information is not available. ABSTRACT DIAGNOSES Code System Diagnosis Updated By K51.90 ICD10 ULCERATIVE COLIT IS, UNSPECIFIED, WITHOUT COMPLICATIONS [id number] on October 01, 2024 7:41:03 AM [facility] K76.0 ICD10 FATTY (CHANGE OF ) LIVER, NOT ELSEWHERE CLASSIFIED [id number] on October 01, 2024 7:41:03 AM [facility] K51.90 ICD10 ULCERATIVE COLIT IS, UNSPECIFIED, WITHOUT COMPLICATIONS [id number] on October 01, 2024 7:41:03 AM [facility] K76.0 ICD10 FATTY (CHANGE OF ) LIVER, NOT ELSEWHERE CLASSIFIED [id number] on October 01, 2024 7:41:03 AM [facility] CARE TEAM Care System Trainer Role NINA ROSS Admitting NINA ROSS Primary Attending NINA ROSS Referring RADHA JUAN Primary Care CARE TEAM CARE mold designer Role on Team Status Start Date End Date Update d By YESSICA Nava APRN PCP normal September 27, 2024 5:33:35 PM UT September 28, 2024 1:29:00 AM [facility] [id number] on September 27, 2024 5:33:35 PM UT CODY HAMMER APRN Referring normal September 27, 2024 5:33:35 PM UT September 28, 2024 1:29:00 AM UT [id number] on September 27, 2024 5:33:35 PM UT CODY HAMMER APRN Attending normal September 27, 2024 5:33:35 PM UT September 28, 2024 1:29:00 AM UT [id number] on September 27, 2024 5:33:35 PM [facility] CODY HAMMER APRN Admitting normal September 27, 2024 5:33:35 PM UT September 28, 2024 1:29:00 AM [facility] [id number] on September 27, 2024 5:33:35 PM [facility]
[2024-11-23 09:21] VITALS: BP 142/91; PULSE 60; RESP 16; O2SAT 98
[2024-11-23] MEDS: NITROGLYCERIN 0.4MG SL TABLET SL (09:21)
[2024-11-23 09:24] VITALS: BP 96/56; PULSE 60; RESP 18; O2SAT 95
[2024-11-23 09:35] VITALS: BP 103/67; PULSE 68; RESP 16; O2SAT 96
[2024-11-23 09:41] VITALS: BP 110/76; PULSE 63; RESP 16; TEMP 36.1; O2SAT 99; BMI 64.0
[2024-11-23] MEDS: IOPAMIDOL-370 (76%);100ML BOTTLE 85 ML IV (09:56)
[2024-11-23] MEDS: 0.9 % SODIUM CHLORIDE 50 ML VIAL IV (09:56)
[2024-11-23] MEDS: SODIUM CHLORIDE 0.9% 10ML SYR (RAD ONLY) 10 ML IV (09:56)
--- NOTE | 2024-11-23 10:00 | CT_ITS ---
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 A noncontrast coronary calcium scan was performed. A CT attenuation threshold of 130 Hounsfield units (HU) was used for the detection of calcium in contiguous voxels of 1 sq mm in area to be counted as individual lesions. Bolus tracking in the ascending aorta with a threshold of 180 HU was performed. Immediately afterwards, ECG synchronized cardiac CT was then performed from the cardiac base to apex using retrospective gating with ECG tube current modulation. A total of 85 mL of Isovue 370 mg/mL contrast medium was administered at 5 mL/sec followed by a saline flush using a biphasic injection protocol. A tube voltage of 120 KVp was used. The patient received the following medications prior to the cardiac CT. 0.8 mg of sublingual nitroglycerin The average heart rate at the time of acquisition was 60 bpm and regular. Image Reconstruction Transaxial images were reconstructed at 0.67 mm slide thickness. Data was reviewed interactively on an advanced workstation capable of 2 and 3-dimensional displays in all conventional reconstruction formats, including multiplanar reformations, maximum intensity projections, curved multiplanar reformations, and volume rendered reconstructions. When applicable, selected routine images describing the relevant coronary anatomy and pathology were saved and sent to PACS. Complications None Technical Quality Overall image quality was good. Coronary artery opacification was adequate. Total DLP (Dose-Length Product) is 2030.3 mGy-cm. The reported value represents the total of one or more individual components during the CT acquisition of this date and at this time, and as such, the same value may appear in more than one CT report depending on the interpreting/reporting physicians. COMPARISON None FINDINGS CT Coronary Calcium Scoring LMA (Left Main Artery) = 0 LAD (Left Anterior Descending) = 29 LCX (Left Coronary Circumflex) = 0 RCA (Right Coronary Artery) = 1 Total Calcium Score = 30 using the AJ-130 method. The observed calcium score of 30 is at 40th percentile for subjects of the same age, sex, and race/ethnicity. The interpretation of the calcium heart score is based on the following continuum*: 0 = no calcified plaque detected (risk of coronary artery disease is very low ??? less than 5%) 1-10 = calcium detected in extremely minimal levels (risk of coronary diseases is still low ??? less than 10%) 11-100 = mild levels of plaque detected with certainty (mild or minimal narrowing of heart arteries is likely) 101-400 = definite,at least moderate levels of plaque detected (relatively high risk of a heart attack within 3-5 years) >401-999 = extensive levels of plaque detected (high risk of heart attack, high levels of vascular disease are present, high likelihood of at least one significant coronary narrowing) *The calcium heart score quantifies the burden of coronary calcification/plaque in the coronary arteries. The calcium heart score is not able to evaluate the presence or burden of non-calcified (i.e. soft) plaque. There is mild calcification in the ascending thoracic aorta. Coronary CT Angiography The coronary arterial system is right dominant. Quantitative Stenosis Grading: Left Main (LM): The left main originates normally from the left sinus of Valsalva. The LM is patent with no evidence of atherosclerosis. Left Anterior Descending (LAD) and Diagonal Branches: The LAD gives off 2 diagonal branch(es). There is calcified plaque in the proximal LAD, with no evidence of luminal stenosis. There is no evidence of LAD-myocardial bridge. 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 The LCx takeoff has a sharp angle and follows a non-interarterial (non-malignant) retroaortic course. The LCx gives off 1 Obtuse Marginal (OM) branch(es). The LCX and its branches are patent with no evidence of atherosclerosis. Right Coronary Artery (RCA): The RCA originates normally from the right sinus of Valsalva. The RCA gives off a posterior descending artery (PDA) and posterolateral (PL) branches. There is calcified plaque in the ostial RCA, with no evidence of luminal stenosis. Non-Coronary Cardiac Findings: Analysis of the left ventricular (LV) structure and function was performed after 3-D reconstruction of the LV from axial images, with user-corrected automatic contouring for assessment of LV volumes and user-defined reconstruction from oblique planes for measurement of 3-D cardiac structure and function. -The left ventricle systolic function is normal. -There is no left atrial appendage filling defect. Two right pulmonary veins and two left pulmonary veins drain normally into the left atrium. -No pericardial thickening or calcification. -Central and branch pulmonary arteries in the sldvf-sc-cpty are unremarkable. -Thoracic aorta within the visualized thoracic aortic-branches in the bgzih-bq-gwmu is unremarkable. Extracardiac Structures No significant extra-cardiac findings. Note, however, that this study is focused on the cardiac findings. IMPRESSION -Presence of coronary calcification with an Agatston score = 30 using the AJ-130 method. -The observed calcium score of 30 is at 40th percentile for subjects of the same age, sex, and race/ethnicity. 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 The LCx takeoff has a sharp angle and follows a non-interarterial (non-malignant) retroaortic course. The LCx gives off 1 Obtuse Marginal (OM) branch(es). The LCX and its branches are patent with no evidence of atherosclerosis. -No evidence of significant flow-limiting atherosclerosis of the coronary arteries. -CAD-RADS 1. Management recommendations per ACC/AHA guidelines*, as clinically appropriate. *Recommendations: CAD RADS 0: Reassurance. Consider non-atherosclerotic causes of chest pain. CAD RADS 1: Consider non-atherosclerotic causes of chest pain. Consider preventive therapy and risk factor modification. CAD RADS 2: Consider non-atherosclerotic causes of chest pain. Consider preventive therapy and risk factor modification, particularly for patients with nonobstructive plaque in multiple segments. CAD RADS 3: Consider further functional testing. Consider symptom-guided anti-ischemic and preventive pharmacotherapy as well as risk factor modification per published guideline statements. CAD RADS 4A: Consider further functional testing or invasive coronary angiography with revascularization per published guideline statements. Consider symptom-guided anti-ischemic and preventive pharmacotherapy as well as risk factor modification per published guideline statements. CAD RADS 4B: Invasive coronary angiography recommended with revascularization per published guideline statements. Consider symptom-guided anti-ischemic and preventive pharmacotherapy as well as risk factor modification per published guideline statements. CAD RADS 5: Consider invasive angiography and/or viability assessment with revascularization per published guideline statements. Consider symptom-guided anti-ischemic and preventive pharmacotherapy as well as risk factor modification per published guideline statements. CRITICAL RESULT None COMMUNICATION Per this written report The coronary and cardiac findings of this CCTA were reviewed, reported, and signed by Stoney Viera MD (Research Phlebotomist) Conclusion Electronically signed by : Viry Viera MD 11/26/2024 13:58:00
--- NOTE | 2024-11-23 13:00 | CA_ITS ---
FINAL REPORT TECHNIQUE: Multiple transverse and longitudinal images were performed of the right femoral-popliteal deep venous system with augmentation and compression maneuvers. CLINICAL HISTORY: Right leg pain and swelling FINDINGS: Right lower extremity duplex ultrasound demonstrates normal flow in the deep venous system. There is no abnormal echogenicity to suggest thrombus. There is normal compression and augmentation. IMPRESSION: No evidence of right DVT. Reviewed, Interpreted and Dictated by Sanjeev Sutton MD Transcribed by Lisette Son Authenticated and [facility]
--- NOTE | 2024-11-23 13:45 | CA_ITS ---
FINAL REPORT TECHNIQUE: Axial and color Doppler waveform evaluation of the left upper extremity was performed. Spectral analysis was performed. CLINICAL HISTORY: Left arm pain, R/O left subclavian stenosis FINDINGS: Left upper extremity velocities cm/sec: SCA: 133 AxA Mid: 58 BrA Dist: 68 Rad: 55 Ul: 45 Waveforms are triphasic. IMPRESSION: No evidence of significant peripheral vascular disease. Reviewed, Interpreted and Dictated by Sanjeev Sutton MD Transcribed by Lisette Son Authenticated and [facility]
== END 2024-11-23 23:59 | disposition home or self-care (01) ==
PROVIDERS: PCP Nurse Practitioner; Visit Provider Physician Assistant
DX: M79.661 Pain in right lower leg (principal); R20.0 Anesthesia of skin; R07.89 Other chest pain; R60.0 Localized edema; I77.1 Stricture of artery
CPT/HCPCS: 75574; 93931; 93971; Q9967

== ENCOUNTER 2025-01-02 16:40 | Emergency (ER) | payer MEDICARE, MEDICAID, SELFPAY ==
[2025-01-02] VITALS (7 sets, daily range): BP systolic 114–141; BP diastolic 73–82; PULSE 53–63; RESP 16; TEMP 36.6–37; O2SAT 93–99; BMI 29.8
--- OUTSIDE RECORDS SUMMARY | 2025-01-02 17:57 | XMS_ITS | Data Portability ---
Author Organization ANGELINA LINNETTE Ku VALLEJO CLOSED Address [address] [facility] [place] [address] Care Team Providers Care Clerk Manager Name Role Phone ISAURO SELENA Primary Care Provider Assessment Encounter Date Assessment Date Assessment LastModified [...] I will see if Dr. Olguin our stage setting painter apprentice can evaluate and treat him.He was happy [...] lower urinary symptoms with alfuzosin and finasteride. [email or web address] Not available 05/25/2023 19:30:24 06/21/2023 06/21/2023 DATE [...] Discharged home with instructions for outpatient follow-up. [email or web address] Not available 06/21/2023 16:00:46 Plan of Treatment Reminders Order Date Submit Date Provider Last Modified By Organization Details Last Modified Time Details Appointments None recorded . Lab urinalys is panel, auto 2022 023 [email or web address] [facility], [address], [place], [address], 19:30:25 PSA, serum or plasma 2022 023 [email or web address] [facility], [address], [address], [place], [address], 19:30:25 toxicolo gy screen, urine [address] [facility], [address] [place], [address], 00:04:17 Referral neurolog ical surgeon referral 2022 023 renae [facility], [address] [place], [address], 11:37:15 Procedures None recorded . Surgeries transure thral resectio n of bladder neck (SURG) [address] [facility], [address] [facility], [place], [address], 13:14:48 cystosco py (SURG) 2022 023 [email or web address] [facility], [address], [address], 3 16:21:07 Imaging None recorded . Medication Orders alfuzosi n ER 10 mg tablet,e xtended release 24 hr 2022 023 [facility], [address] [place], [address], 4 10:49:03 finaster shmuel 5 mg tablet 2022 023 [email or web address] [facility], [address] [place], [address], 3 15:09:17 Lyrica 100 mg capsule 2022 023 [facility], [address] [place], [address], 3 11:24:18 Patient TargetsNo targets recorded. Patient [...] NEGATI VE NG/mL <10 normal Not Available [facility] [address] [place], [address], 05/13/2023 00:50:28 05/10/2005/11/2023 HIGH RISK DRUG PANEL buprenorphin e NEGATI VE NG/mL <2 normal Not Available [facility] [address] [place], [address], 05/13/2023 00:50:28 05/10/2005/11/2023 HIGH RISK DRUG PANEL norbuprenorp lauren NEGATI VE NG/mL <2 normal Not Available [facility] [address] [place] [address], [address], 05/13/2023 00:50:28 05/10/20 23 05/11/2023 HIGH RISK DRUG PANEL naloxone NEGATI VE NG/mL <2 normal Not Available [facility] [address] [place] [address], [address], 05/13/2023 00:50:28 05/10/20 23 05/12/2023 HIGH RISK DRUG PANEL amphetamines NEGATI VE NG/mL <500 normal Not Available [facility] [address] [place] [address], [address], 05/13/2023 00:50:28 05/10/20 23 05/12/2023 HIGH RISK DRUG PANEL barbiturates NEGATI VE NG/mL <300 normal Not Available [facility] [address] [place] [address], [address], 05/13/2023 00:50:28 05/10/20 23 05/12/2023 HIGH RISK DRUG PANEL benzodiazepi conchis NEGATI VE NG/mL <100 normal Not Available [facility] [address] [place] [address], [address], 05/13/2023 00:50:28 05/10/20 23 05/12/2023 HIGH RISK DRUG PANEL marijuana metabolite NEGATI VE NG/mL <20 normal Not Available [facility] [address] [place] [address], [address], 05/13/2023 00:50:28 05/10/20 23 05/12/2023 HIGH RISK DRUG PANEL cocaine metabolite NEGATI VE NG/mL <150 normal Not Available [facility] [address] [place] [address], [address], 05/13/2023 00:50:28 05/10/20 23 05/12/2023 HIGH RISK DRUG PANEL methadone metabolite NEGATI VE NG/mL <100 normal Not Available [facility] [address] [place] [address], [address], 05/13/2023 00:50:28 05/10/2005/12/2023 HIGH RISK DRUG PANEL opiates NEGATI VE NG/mL <100 normal Not Available [facility] [address] [place] [address], [address], 05/13/2023 00:50:28 05/10/20 23 05/12/2023 HIGH RISK DRUG PANEL oxycodone NEGATI VE NG/mL <100 normal Not Available [facility] [address] [place] [address], [address], 05/13/2023 00:50:28 05/10/20 23 05/12/2023 HIGH RISK DRUG PANEL phencyclidin e NEGATI VE NG/mL <25 normal Not Available [facility] [address] [place] [address], [address], 05/13/2023 00:50:28 05/10/20 23 05/12/2023 HIGH RISK DRUG PANEL creatinine 61.8 mg/dL > or = 20.0 normal Not Available [facility] [address] [place] [address], [address], 05/13/2023 00:50:28 05/10/20 23 05/12/2023 HIGH RISK DRUG PANEL specific gravity 1.015 > or = 1.003 normal Not Available [facility] [address] [place] [address], [address], 05/13/2023 00:50:28 05/10/20 23 05/12/2023 HIGH RISK DRUG PANEL pH 7.3 4.5-9. 0 normal Not Available [facility] [address] [place] [address], [address], 05/13/2023 00:50:28 05/10/20 23 05/12/2023 HIGH RISK DRUG PANEL oxidant NEGATI VE mcg/m L <200 normal Not Available [facility] [address] [place] [address], [place], [address], 05/13/2023 00:50:28 05/10/20 23 05/12/2023 HIGH RISK [...] cteri stics have been deter mined by AbilTo ostic s. It has not been clear [...] M-F, 8am to 10pm EST Not Available [facility] [address] [place] [address], [address], 05/13/2023 00:50:28 05/10/20 23 05/12/2023 HIGH RISK DRUG PANEL fentanyl NG/mL <0.5 normal SEE BELOW NEGAT JEROMY CONFI RMED NEGAT JEROMY Not Available [facility] [address] [place] [address], [address], 05/13/2023 00:50:28 05/10/20 23 05/12/2023 HIGH RISK DRUG PANEL norfentanyl NEGATI VE NG/mL <0.5 normal Not Available [facility] [address] [place] [address], [address], 05/13/2023 00:50:28 05/10/20 23 05/12/2023 HIGH RISK DRUG PANEL gabapentin 976182 NG/mL <1000 high Not Available [facility] [address] [place] [address], [address], 05/13/2023 00:50:28 05/10/2005/12/2023 HIGH RISK DRUG PANEL pregabalin, qt ur NEGATI VE NG/mL <1000 normal Not Available [facility] [address] [place] [address], [address], 05/13/2023 00:50:28 05/10/20 23 05/12/2023 HIGH RISK DRUG PANEL desmethyltra madol NEGATI VE NG/mL <100 normal Not Available [facility] [address] [place] [address], [address], 05/13/2023 00:50:28 05/10/20 23 05/12/2023 HIGH RISK DRUG PANEL tramadol NEGATI VE NG/mL <100 normal Not Available [facility] [address] [place] [address], [address], 05/13/2023 00:50:28 05/10/20 23 05/12/2023 HIGH RISK DRUG PANEL tapentadol NEGATI VE NG/mL <50 normal Not Available [facility] [address] [place] [address], [address], 05/13/2023 00:50:28 05/10/20 23 05/12/2023 HIGH RISK DRUG PANEL nortapentado l NEGATI VE NG/mL <50 normal Not Available [facility] [address] [place] [address], [address], 05/13/2023 00:50:28 05/10/20 23 05/12/2023 HIGH RISK DRUG PANEL ethyl glucuronide NEGATI VE NG/mL <500 normal Not Available [facility] [address] [place] [address], [address], 05/13/2023 00:50:28 05/10/20 23 05/12/2023 HIGH RISK DRUG PANEL ethyl sulfate NEGATI VE NG/mL <100 normal Not Available [facility] [address] [place], [place] [address], [place], [address], 05/13/2023 00:50:28 05/18/2005/18/2023 PSA, serum or plasm a PSA 0.30 NG/mL 0.0 - 4.0 Not Available [facility] [address], [place], [address], 05/18/2023 10:29:57 05/18/2005/18/2023 urina lysis panel , auto Unknown Analyte Clean Catch Not Available [facility] [address], [place], [address], 05/18/2023 09:50:26 05/18/2005/18/2023 urina lysis panel , auto Unknown Analyte Yellow Not Available [facility] [place] [address], [place], [address], 05/18/2023 09:50:26 05/18/2005/18/2023 urina lysis panel , auto Unknown Analyte Cloudy Not Available [facility] [address], [place], [address], 05/18/2023 09:50:26 05/18/2005/18/2023 urina lysis panel , auto Unknown Analyte 1.015 Not Available [facility] [address], [place], [address], 05/18/2023 09:50:26 05/18/2005/18/2023 urina lysis panel , auto Unknown Analyte 1.003- 1.035 Not Available [facility] [address], [place], [address], 05/18/2023 09:50:26 05/18/2005/18/2023 urina lysis panel , auto Unknown Analyte 7.0 Not Available [facility] [address], [place], [address], 05/18/2023 09:50:26 05/18/2005/18/2023 urina lysis panel , auto Unknown Analyte 5.0-8. 0 Not Available [facility] [address], [place], [address], 05/18/2023 09:50:26 05/18/2005/18/2023 urina lysis panel , auto Unknown Analyte Negati ve Not Available [facility] [address], [place], [address], 05/18/2023 09:50:26 05/18/2005/18/2023 urina lysis panel , auto Unknown Analyte Negati ve Not Available [facility] [address], [place], [address], 05/18/2023 09:50:26 05/18/2005/18/2023 urina lysis panel , auto Unknown Analyte Negati ve Not Available [facility] [address], [place], [address], 05/18/2023 09:50:26 05/18/2005/18/2023 urina lysis panel , auto Unknown Analyte Negati ve Not Available [facility] [address], [place], [address], 05/18/2023 09:50:26 05/18/2005/18/2023 urina lysis panel , auto Unknown Analyte Negati ve Not Available [facility] [address], [place], [address], 05/18/2023 09:50:26 05/18/2005/18/2023 urina lysis panel , auto Unknown Analyte Negati ve Not Available [facility] [address], [place], [address], 05/18/2023 09:50:26 05/18/2005/18/2023 urina lysis panel , auto Unknown Analyte >1000 mg/dl Not Available [facility] [address], [place], [address], 05/18/2023 09:50:26 05/18/2005/18/2023 urina lysis panel , auto Unknown Analyte Normal Not Available [facility] [address], [place], [address], 05/18/2023 09:50:26 05/18/2005/18/2023 urina lysis panel , auto Unknown Analyte 15 mg/dl (Sm) Not Available [facility] [address], [place], [address], 05/18/2023 09:50:26 05/18/2005/18/2023 urina lysis panel , auto Unknown Analyte Negati ve Not Available [facility] [address], [place], [address], 05/18/2023 09:50:26 05/18/2005/18/2023 urina lysis panel , auto Unknown Analyte 1 mg/dl Not Available [facility] [address], [place], [address], 05/18/2023 09:50:26 05/18/2005/18/2023 urina lysis panel , auto Unknown Analyte Normal 1 mg/dl Not Available [facility] [address], [place], [address], 05/18/2023 09:50:26 05/18/2005/18/2023 urina lysis panel , auto Unknown Analyte Negati ve Not Available [facility] [address], [place], [address], 05/18/2023 09:50:26 05/18/2005/18/2023 urina lysis panel , auto Unknown Analyte Negati ve Not Available [facility] [address], [place], [address], 05/18/2023 09:50:26 05/18/2005/18/2023 urina lysis panel , auto Unknown Analyte Negati ve Not Available [facility] [address], [place], [address], 05/18/2023 09:50:26 05/18/2005/18/2023 urina lysis panel , auto Unknown Analyte Negati ve Not Available [facility] [address], [place], [address], 05/18/2023 09:50:26 03/15/2003/15/2023 XR, hip, unila teral , 2 or 3 view [facility] [address] [place] [address] Jorge duncan Name: ELLIOT duncan : [id number] Orderi ng Provid er: [facility] EXAM DATE: 2022 EXAM: XR RT HIP [...] Angie Abreu MD on 03/15/20 9:16 AM [facility] [place] [address] , [place], [address], 05/19/2023 07:37:55 03/15/2003/15/2023 XR, lumbo sacra l spine , 2 or 3 view [facility] [address] [place] [address] Jorge duncan Name: ELLIOT duncan : [address] dun[address] Orderi ng Provid er: [facility] EXAM DATE: 2022 EXAM: XR LUMBAR AP/LAT [...] Asia Pandey MD on 03/15/20 2:22 PM [email or web address] [facility] [place] [address] , [place], [address], 05/19/2023 07:37:55 04/06/20 23 04/06/2023 MRI, lumba r spine , w/o contr ast [place] [facility] [address] [facility] [place] [address] Patien t Name: ELLIOT duncan : [phone] [...] too and normal in signal . IMPRES APIGE: 1. There is a large centra l disc extrus ion at L1-L2 with modera te centra l canal stenos is. 2. There is mild left neural forami nal narrow ing at L4-L5 and mild right neural forami nal narrow ing at L5-S1. Interp reted By: Wan rose MD Electr onical ly Signed By: Wan rose MD on 023 11:22 AM [email or web address] [facility] [address] [place] [address], [address], 04/07/2023 07:34:29 04/14/20 23 04/14/2023 XR, lumbo sacra l spine , 2 or 3 view, [facility] [address] [address] Jorge duncan Name: ELLIOT duncan : [phone] [...] Signed By: Angie Abreu MD on 04/14/20 12:49 PM [email or web address] [facility] [address] [place] [address], [address], 05/19/2023 14:33:38 Result Notes None recorded. Problems Name Problem SNOMED Code Status Onset Date Resolution Date Notes Provider Name and Address Organization Details Recorded Time Spermatoce le 62637943 Active 2015 From Automated Load;Provi dayna: Lofton, Odilia;Statu s: Active Not Available [facility] 02:24:26 Problem Notes Documentation Provider Name and Address Organization Details Recorded Time Neurological Surgeon Consult Note : [facility] [address] [place] [id number], Perry M (id #[id number], : 1960) [facility] [address] [place] [address] Date: 04/19/2023RE: Elliot Mata : 1960, PT ID #[id number] Woodward PA-C, I would like to thank [...] RAE and RFA 4 years ago in [place] and the pain increased. Previous PT:did not help Previous Yarn Twister:noneReview of Systems Patient reportsmuscle weakness, back pain, [...] and no clonus of the ankle/knee.Procedure DocumentationCelina [facility]an is a 62-year-old gentleman seen today for [...] RFA no relief09/02/2021 bilateral L3-5 MBB no gmifxt8506/22/2021 L2-3 IL RAE Currently prescribed gabapentin with [...] clinical notes, and relevant labs. 1. Lumbar fwcteffacksgqD11.16: Radiculopathy, lumbar region 2. Displacement of lumbar intervertebral discM51.26: Other intervertebral disc displacement, lumbar region 3. Spinal stenosis of lumbar gtsqigA37.062: Spinal stenosis, lumbar region with neurogenic claudication Return to Office Patient will return to the office as needed [facility] 04/[facility]/2023 09:10:51 External Records : [facility] [address] [facility] [id number], Perry M (id #[id number], : 1960) [facility] [address] [facility] [address] [place] [address] Date: 05/25/2023RE: Elliot Mata, : 1960, PT ID #[id number] Woodward PA-C, I would like to thank you for referring Elliot Mata to our practice for consultation and evaluation. I have enclosed a copy of the office evaluation for your records. Sincerely, Electronically Signed by: JARRED TIAN MDEncmemorial healthcare Reason/DateTransition of Care Encounter 05/18/2023 - 09:00AM - RAHUL SHAVER [facility] History of Present [id number] male in the office for my initial evaluation and for discussion of prostatitis. He was referred here by [facility]. He was treated for a UTI [...] urinary symptoms with alfuzosin and finasteride. 1. IqtoqmnhbtvF91.9: Inflammatory disease of prostate, unspecified URINALYSIS PANEL, AUTO - Specimen source: Urine 2. Benign prostatic hyperplasia with outflow inawacdjnimF43.1: Benign prostatic hyperplasia with lower urinary tract symptoms alfuzosin ER 10 mg tablet,extended release 24 hr - To be submitted on or around 05/25/2023 Take 1 tablet(s) every day by oral route for 90 days. Qty: (90) tablet Refills: 3 Pharmacy: [facility] Note to Pharmacy: Discontinue Flomax finasteride 5 mg tablet - Take 1 tablet(s) every day by oral route for 90 days. Qty: (90) tablet Refills: 3 Pharmacy: [facility] CYSTOSCOPY (SURG) - Note to Provider: CYSTOSCOPY - LOCAL Admission Status: Outpatient Anesthesia: Local Diabetes?: N Bowel Prep?: N Latex Allergy: N Robot Assisted?: N Date of surgery/procedure: 06/21/2023 [facility] Procedure code: 66333 Authorization: [employer] [facility] (Medicare Replacement/Advantage - PPO) NOTREQUIRED Not Required for [id number]: [facility] (Medicaid Replacement - HMO) [place]QU[place] [address] PSA, SERUM OR PLASMA - Specimen source: Blood venous URINALYSIS PANEL, AUTO UA [...] SCHEDULE on 06/21/2023 at 01:15 PM [facility] 07:27:19 Procedures Surgical History Date Name Laterality Status Provider Name and Address Organization Details Recorded Time 01/27/20 22 Total hip arthroplasty completed Barbara Crain [facility] 03/15/2023 08:38:27 08/08/19 18 Collette fundoplication completed Kristen Cage [facility] 04/19/2023 08:53:28 Cholecystectomy completed Selena Ramsey [facility] 12/29/2016 14:18:06 Other completed [facility] 12/29/2016 14:18:59 Kidney Stones completed [facility] 12/29/2016 14:19:05 Imaging Results None recorded. Procedure Notes None recorded. Medical Equipment None Reported. Allergies Allergen ID Allergen Name Allergen Category Reaction Reaction Severity Criticality Documentation Date Start Date Code Code System Note Provider Name and Address Organization Details Recorded Time 172479 Singulair medicatio n Not available Not available Not available 07/01/20162005 41835 9 RxNorm Comme nt: ronnie jaffe SOB;Anisha schmittate d By: Mary Ann jeffers; Creat ed Date: 2005 12:09 :53 PM; Not Available [facility] 6 10:20:20 261937 Flagyl medicatio n Not available Not available Not available 07/01/2016201286 6 RxNorm Comme nt: Creat ed By: Shivani rosario;Cr eated Date: 2012 9:11: 44 AM; Not Available [facility] 6 10:54:21 305281 prednison e medicatio n Not available Not available Not available 07/01/20162005 8640 RxNorm Comme nt: AGGRE SSIVE AND VIOLE NT;Cr eated By: Mary Ann jeffers; Creat ed Date: 2005 12:09 :04 PM; Not Available [facility] 6 11:15:51 015002 Asmanex medicatio n Not available Not available Not available 07/01/20162012 98066 2 RxNorm Comme nt: Creat ed By: Shivani rosario;Cr eated Date: 2012 9:11: 33 AM; Not Available [facility] 6 11:15:51 915648 Levaquin medicatio n Not available Not available Not available 07/02/20162005 84835 2 RxNorm Comme nt: hives ;Crea pravin By: Mary Ann jeffers; Creat ed Date: 2005 12:08 :14 PM; Not Available [facility] 6 03:55:39 887818 Gralise medicatio n Not available Not available Not available 07/02/20162012 63725 76 RxNorm Comme nt: Creat ed By: Shivani rosario;Cr eated Date: 2012 9:11: 55 AM; Not Available [facility] 6 03:55:39 896420 Lipitor medicatio n Not available Not available Not available 12/29/2016 26643 5 RxNorm Selena Ramsey [facility] 7 14:14:27 [id number] baclofen medicatio n vomiting severe high 05/09/20232022 1292 RxNorm Viviana Hernandez [facility] 3 08:25:37 Medications Name Sig Start [...] Available Not Available No t Available OneTouch Ultra Test strips USE DAILY DIRECTED . [...] Updated DateTime 04/14/2023 167.64 cm 35 kg/m2 54313.54 g 120 mm[Hg] 80 mm[Hg] Tena Sevillaholz [facility] 3 10:02:09 Date Recorded Body height Body mass index (BMI) Body weight Respiratory rate Systolic blood pressure Diastolic blood pressure Provider Name and Address Organization Details Last Updated DateTime 3 167.64 cm 34.4 kg/m2 38842.1 7 g 14 /min 122 mm[Hg] 82 mm[Hg] Kristen Cage [facility] 3 08:50:49 Date Recorded Body height Body mass index (BMI) Body weight Heart rate Oxygen saturation Oxygen saturation in Arterial blood by Pulse oximetry Body temperature Systolic blood pressure Diastolic blood pressure Provider Name and Address Organization Details Last Updated DateTime 3 167.64 cm 34.4 kg/m2 08043.1 7 g 68 /min 99 % 99 % 98.6 [degF] 122 mm[Hg] 84 mm[Hg] Debbie Jese [facility] 3 08:48:38 Date Recorded Body height Body mass index (BMI) Body weight Provider Name and Address Organization Details Last Updated DateTime 05/18/2023 167.64 cm 32.9 kg/m2 41095.84 g Enriqueta Christian [facility] 05/18/2023 15:09:20 Social History Question Answer Notes LastModified by Organizat ion Details LastModified Time Tobacco Smoking Status Never Smoker [facility] 12/29/2016 14:17:46 Marital Status paulina Informatio n not available 12/29/2016 What Was The Date Of Your Most Recent Tobacco Screening? 04/19/2023 Information not available 04/19/2023 Sex: Male Functional Status Question Answer Note LastModified by Organization D etails LastModified Time What is your level of alcohol consumption? None Information not available 12/29/2016 What is your occupation? Retired Information not available 12/29/2016 Mental Status None recorded. Family History Relationship Description Onset Age of this Age Resolved Age Notes LastModified by Organization Details LastModified Time Unspecified Relation Diabetes mellitus Not available 2016 14:15:10 Unspecified Relation Family history of malignant neoplasm Not available 2016 14:15:16 Medical History Condition Response Anxiety Disorder Y Arthritis Y False Teeth Y Kidney Stones Y Chronic Obstructive Pulmonary Disease Y High Cholesterol Y Ulcers Y Acid Reflux (GERD) Y Hypertension Y Depression Y Past Encounters Encounter ID Performer Location Encounter Start Date Encounter Closed Date Diagnosis/Indication Diagnosis SNOMED-CT Code Diagnosis ICD10 Code Diagnosis Note [id number] ODILIA LOFTON MD [facility] [address] [facility] [place] [address] 12/29/2016 13:32:25 01/03/2017 10:52:03 Cyst of testes 062605771 N44.2 Large prostate [id number] N40.0 [id number] ANGIE WOODWARD PA-C [facility] [address] [place] [address] 03/15/2023 08:20:06 03/15/2023 10:29:46 History of right hip replacement [id number] 673555 Z96.641 Assessment : 1 year status post [...] for yearly follow-ups . Lumbar radiculopathy 128 812381 M54.16 [id number] SNEHAL GALLO MD NEUROS[facility]G [facility] [address] [place] [address] 04/14/2023 09:19:30 04/15/2023 08:05:25 Lumbar spondylosis 594834014 M47.896 [id number] FARIBA OLGUIN MD PAIN MEDICINE [address] [place] [address] 1 04/19/2023 08:34:14 04/19/2023 12:56:04 Displacement of lumbar intervertebral disc 3028118210 M51.26 Lumbar radiculopathy 128 018863 M54.16 Spinal david nosis of lumbar region 20751091 M48.062 [id number] KAROLINE HERNÁNDEZ PA-C PAIN MEDICINE [address] [place] [address] 1 2023 08:40:01 05/11/2023 04:26:51 Lumbar radiculopathy 054853260 M54.16 Displaceme nt of lumbar intervertebral disc 0065793810 M51.26 Spinal david nosis of lumbar region 18391515 M48.062 Long-term drug therapy 876882665 Z79.899 [id number] JARRED TIAN MD [facility] [address] [place] [address] 05/18/2023 08:35:58 05/26/2023 19:59:58 Prostatitis 4175468 N41.9 Benign pro static hyperplasia with outflow obstruction 975339095 N40.1 [id number] JARRED TIAN MD SURGERY SCHEDULE [address] [place] [address] 1 06/21/2023 13:21:12 06/21/2023 13:22:01 Contracture of neck of urinary bladder 5034700085 9103 N32.0 Health Concerns Section Related Observation LastModified by Organization Detai ls LastModified Time None Recorded Concern Status LastModified by Organization Details LastModified Time None Recorded Advance Directives Directive None Recorded Payers Insurance Date Sequence Insurance Name Policy Number Policy Garcia Covered Member ID Garcia Member ID Guarantor Name 03/15/2023 1 [place] Elliot Mata [id number] Elliot Mata 12/08/2023 2 [place] [employer] [place] FFS/TRADITIONA L Elliot Mata [id number] Elliot Mata 07/08/[address] [facility] (MEDICAID REPLACEMENT - HMO) DANIELA Mata [id number] Elliot Mata 03/15/2023 1 [facility] (MEDICARE REPLACEMENT/AD VANTAGE - HMO) DANIELA Mata [id number] Elliot Mata 02/14/2024 1 [facility] (MEDICARE REPLACEMENT/AD VANTAGE - PPO) DANIELA Mata [id number] Elliot Mata 03/15/2023 1 [facility] (MEDICARE REPLACEMENT/AD VANTAGE - HMO) DANIELA Mata [id number] Elliot Mata Notes Date Note Type Note [...] is done physical therapy. He seen a stage setting painter apprentice remotely in [place] where they have done injections. It sounds like he has had ablations and perhaps epidural injections.At some point he was seen by a spine surgeon at [facility] who talked him about undergoing surgery. He [...] hip prosthesis looks good. SNEHAL GALLO MD [address] [place] [address], [phone], [facility] 04/14/2023 12:32:12 04/19/2023 text/html Pain Management [...] RAE and RFA 4 years ago in [place] and the pain increased. Previous PT:did not help Previous Yarn Twister:none FARIBA OLGUIN MD [address] [place] [address], [phone], [facility] 04/19/2023 09:37:12 2023 text/html Pain Management L-spine GISHReported bypatient.Location: radiating to the LLE; radiating to the RLE; LBP Quality:numbness;bu rning Severity:current pain level 6-7/10; worst pain 10/10;interference with sleep Duration:constant Alleviating Factors:medication Associated Symptoms:no bladder compromise; no bowel compromise Work Related:no KAROLINE HERNÁNDEZ PA-C [address] [place] [address], [phone], [facility] 2023 10:50:29 05/18/2023 text/html 63-year-old male in the office for my initial evaluation and for discussion of prostatitis. He was referred here by [facility]. He was treated for a UTI [...] with postoperative retrograde ejaculation. JARRED TIAN MD [address] [place], [phone], [facility] 05/25/2023 19:30:47
--- NOTE | 2025-01-02 18:11 | CT_ITS ---
PROCEDURE INFORMATION: Exam: CT Lumbar Spine Without Contrast Exam date and time: 01/02/2025 6:22 PM Age: 64 years old Clinical indication: Low back pain; Additional info: Back pain, no radiculopathy TECHNIQUE: Imaging protocol: Computed tomography of the lumbar spine without contrast. Radiation optimization: All CT scans at this facility use at least one of these dose optimization techniques: automated exposure control; mA and/or kV adjustment per patient size (includes targeted exams where dose is matched to clinical indication); or iterative reconstruction. COMPARISON: CT ABDOMEN WO CON 09/06/2024 6:35 AM FINDINGS: Bones/joints: Lumbosacral alignment is normal. No fractures or pars defects. No blastic or lytic lesions. 6 mm probable bone island in the right iliac bone. T12-L1: No change. Mild chronic Schmorl's node formation. Mild anterior spurring. No canal or foraminal stenosis. L1-L2: No change. Mild-moderate disc space narrowing and anterior spurring. Broad posterior central calcified annular protrusion measuring up to 8 mm AP, likely producing mass effect on the ventral surface of the distal cord/conus medullaris. Midline AP thecal sac of 8.3 mm is consistent with mild-moderate central canal stenosis. No lateral recess stenosis or foraminal stenosis. L2-L3: No change. Mild anterior spurring. Slight 1.5 mm retrolisthesis with 2.5 mm disc bulge. No canal or foraminal stenosis. L3-L4: No change. Mild-moderate anterior spurring. Slight 1.5 mm retrolisthesis with 2 mm disc bulge. No canal or foraminal stenosis. L4-L5: No change. Mild-moderate anterior spurring. 2 mm disc bulge. Mild bilateral osteoarthritic facet hypertrophy. No central canal stenosis. Mild lateral recess stenosis bilaterally. No foraminal stenosis. L5-S1: Mild-moderate anterior spurring. Mild right lateral vacuum disc formation which is new. Mild bilateral osteoarthritic facet hypertrophy. 2.5 mm annular disc bulge. No canal or foraminal stenosis. Vasculature: Mild calcific atherosclerosis. Soft tissues: Visualized paraspinal soft tissues are normal. IMPRESSION: 1. No acute findings. No evidence of fracture or traumatic subluxation. 2. There is mild progression of disc osteoarthritic changes at L5-S1 since 09/06/2024, with mild vacuum disc formation in the right lateral disc which is new. The remainder of the examination is unchanged. 3. Large chronic posterior calcified central annular protrusion at L1-L2 is unchanged, likely producing mass effect on the ventral surface of the distal cord/conus medullaris, with mild-moderate central canal stenosis.
--- NOTE | 2025-01-02 18:12 | HMH.EDGENADL ---
Discharge Plan Disposition Patient Disposition: Home, Self-Care Condition: Good Prescriptions Prescriptions: New methocarbamol 750 mg tablet 750 mg PO Q8H PRN (Reason: pain) Qty: 20 0RF No Action ropinirole 2 mg tablet 2 mg PO Patient Comments: TAKE ONE TABLET BY MOUTH EVERY DAY AT bedtime esomeprazole magnesium 40 mg capsule,delayed release(DR/EC) 40 mg PO BID Patient Comments: TAKE ONE CAPSULE BY MOUTH TWICE DAILY gabapentin 600 mg tablet 600 mg PO TID Patient Comments: TAKE ONE TABLET BY MOUTH THREE TIMES DAILY atorvastatin 20 mg tablet 20 mg PO HS Patient Comments: TAKE ONE TABLET BY MOUTH DAILY amlodipine 5 mg tablet 5 mg PO DAILY Patient Comments: TAKE ONE TABLET BY MOUTH DAILY mesalamine 0.375 gram capsule,extended release 24hr 1.48 g PO DAILY Patient Comments: Take 4 capsules every day by oral route as directed for 90 days. Jardiance 25 mg tablet 25 mg PO DAILY Patient Comments: Take 1 tablet every day by oral route. Ozempic 0.25 mg or 0.5 mg (2 mg/3 mL) pen injector 0.25 mg SQ WEEKLY Patient Comments: INJECT 0.25 MG WEEKLY SUBCUTANEOUSLY FOR 30 DAYS propranolol 10 mg tablet 10 mg PO BID Patient Comments: TAKE ONE TABLET BY MOUTH TWICE DAILY for tremors divalproex 500 mg tablet extended release 24 hr 500 mg PO BID Patient Comments: TAKE ONE TABLET BY MOUTH TWICE DAILY tamsulosin 0.4 mg capsule 0.4 mg PO HS Patient Comments: TAKE ONE CAPSULE BY MOUTH ONCE DAILY Referrals Follow up/Referrals: Figueroa Meehan MD [Staff Physician, Pain Management] - See instructions Consuelo Segundo APRN [Primary Care Provider, Medical] - See instructions Activity Restrictions/Add. Instructions Additional Instructions/Restrictions: You were evaluated in the emergency department today. Your CT scan shows some worsening spine degeneration, for which I recommend close outpatient follow-up with spine, your primary care provider, or pain management. start up specialist your prescription and take as needed for pain. Return to the emergency department for new or worsening symptoms. Clinical Impressions Clinical Impression: Low back pain, Spine degeneration, Spinal stenosis Stand Alone Forms Stand Alone Forms: Work/School Release Instructions Patient Instructions: DI for Low Back Pain Print Language Print Language: Slovenian Discharge ED Provider: Anca Jaquez General Adult HPI <Debbie Holguin APRN - Last Filed: 01/03/25 12:05> General Chief complaint: Back Pain/Injury Stated complaint: lower back and leg pain Time Seen by Provider: 01/02/25 16:45 History of Present Illness HPI narrative: Elliot Mata is a 64-year-old male who presents emergency room today with complaints of low back pain. Mr. Mata states his back started hurting about a week ago. Has had chronic back pain issues in the past. States he discussed having surgery 2 or 3 years ago but declined. Denies any trauma, no fall. No radiculopathy down into his legs or feet. No saddle paresthesias, no numbness, tingling. Does take gabapentin already for diabetic neuropathy. Denies any weakness in his legs or feet. No gait issues. States his back does not hurt while he is sitting in bed. Hurts more when he gets up and walks around or goes to get out of the car. Does not take any blood thinners. Has never had injections in his back. Does not take any blood thinners. No acute complaints at this time. Please note that the above description of symptoms, and this electronic medical record under categorization of recalled from ER triage doctor by RN are reflective of an initial nursing assessment, however, is not reflective of my full history and physical exam that was personally taken and clarified. Consequentially, this proceeding description of symptoms, which may include the patient's cauterized chief complaint in the EMR, do not reflect my personal clinical impression, and the ultimate description of the history of present illness stated complaints should be deferred to this section of this note. Unless stated otherwise were congruent with the section of the note, additional signs, symptoms, or incongruence can be interpreted as in or accurate with my clinical impression. Related Data Home Medications ?Medication ?Instructions ?Recorded ?Confirmed amlodipine 5 mg tablet 5 mg PO DAILY 05/29/24 12/11/24 atorvastatin 20 mg tablet 20 mg PO HS 05/29/24 12/11/24 empagliflozin 25 mg tablet 25 mg PO DAILY 05/29/24 12/11/24 (Jardiance) gabapentin 600 mg tablet 600 mg PO TID 05/29/24 12/11/24 mesalamine 0.375 gram 1.48 g PO DAILY 05/29/24 12/11/24 capsule,extended release 24 hr semaglutide 0.25 mg or 0.5 mg (2 0.25 mg SQ WEEKLY 10/22/24 05/06/25 mg/3 mL) subcutaneous pen injector (Ozempic) divalproex 500 mg tablet,extended 500 mg PO BID bipolar disease 10/15/24 12/11/24 release 24 hr propranolol 10 mg tablet 10 mg PO BID tremors 10/15/24 12/11/24 tamsulosin 0.4 mg capsule 0.4 mg PO HS 10/15/24 12/11/24 esomeprazole magnesium 40 mg 40 mg PO BID 11/08/24 12/11/24 capsule,delayed release ropinirole 2 mg tablet 2 mg PO 12/11/24 12/11/24 Previous Rx's ?Medication ?Instructions ?Recorded methocarbamol 750 mg tablet 750 mg PO Q8H PRN pain #20 tabs 01/02/25 Allergies Allergy/AdvReac Type Severity Reaction Status Date / Time prednisone Allergy Mild Other Verified 12/11/24 10:25 levofloxacin (From Levaquin) Allergy Other Verified 12/11/24 10:25 lithium Allergy Other Verified 12/11/24 10:25 metronidazole (From Flagyl) Allergy Other Verified 12/11/24 10:25 mometasone furoate (From Allergy Other Verified 12/11/24 10:25 Asmanex Twisthaler) montelukast (From Singulair) Allergy Other Verified 12/11/24 10:25 PFSH <Debbie Holguin, [facility] [employer] - Last Filed: 01/03/25 12:05> PFS Disclaimer: The information contained in this section may have been updated after the patient was seen, as this information can be updated by other users. Medical History (Updated 01/02/25 @ 19:54 by Anca Jaquez DO) Chest pain Nausea, vomiting and diarrhea Abdominal pain Diastasis of rectus abdominis Kidney stone on left side Left flank pain Stye Bronchitis Concussion Corneal abrasion Foreign body, intraocular Left wrist sprain Urinary tract infection Right foot pain Left foot pain Metatarsalgia of right foot Diabetic foot Diabetes mellitus Left wrist amputee GERD (gastroesophageal reflux disease) Depression Anxiety Diabetes mellitus, type 2 Hyperlipidemia Hypertension Surgical History H/O left wrist surgery Hx of cataract surgery History of cholecystectomy History of hip replacement Family History Brother Asthma Hypertension Mother Cancer Hypertension Sister Diabetes Hypertension Brother Diabetes Hypertension Grandfather Tuberculosis Social History Smoking Status: Never smoker second hand exposure: No alcohol intake: never substance use type: denies use current occupational status: unemployed Travel in the last 8 weeks?: None lives independently: No marital status: Other Medical History Have you received the Flu Vaccine for this season: No Have you received the Pneumonia Vaccine: No <Debbie Holguin APRN - Last Filed: 01/03/25 12:05> ROS Obtained: Yes Systems reviewed as appropriate & no additional complaints except as documented Physical Exam <Debbie Holguin APRN - Last Filed: 01/03/25 12:05> General General appearance: alert and in no apparent distress Head Head exam: atraumatic and normocephalic Eye Eye exam: Present PERRL and EOMI Chest Chest inspection: Present symmetric chest wall rise Respiratory Respiratory exam: Present normal lung sounds bilaterally Cardiovascular Cardiovascular exam: Present regular rate and normal rhythm Abdominal Exam Abdominal exam: Present soft and normal bowel sounds; Absent tenderness Extremities Exam Extremities exam: Present full ROM Neurological Exam Neurological exam: Present alert and oriented X3 Expanded Neurological Exam Motor strength - LLE: 5/5 Motor strength - RLE: 5/5 Comment: Negative for clonus, 2+ DTRs throughout lower extremities Skin Skin exam: Present warm, dry and intact Medical Decision Making <Debbie Holguin APRN - Last Filed: 01/03/25 12:05> Medical Records Screening: Per USPSTF and CDC recommendations, given the prevalence of disease in our region, it is our hospital?s policy to screen for HIV and viral Hepatitis for all patients aged 18 and over and those with ongoing risk factors. Vital Signs: 01/02/25 18:30 01/02/25 19:00 01/02/25 19:14 Temperature 98.6 F Temperature Source Oral Pulse Rate 58 L 58 L Pulse Rate [Right Radial] 56 L Respiratory Rate 16 Blood Pressure 114/73 124/73 Blood Pressure [Right Arm] 130/74 Blood Pressure Mean Blood Pressure Mean [Right Arm] 92 Blood Pressure Source Blood Pressure Source [Right Arm] Automatic Cuff Blood Pressure Position Blood Pressure Position [Right Arm] Supine 02 Sat by Pulse Oximetry 93 L 99 98 Oxygen Delivery Method Room Air Room Air Room Air 01/02/25 19:30 01/02/25 20:00 01/02/25 20:15 Temperature Temperature Source Pulse Rate 53 L 58 L 63 Pulse Rate [Right Radial] Respiratory Rate Blood Pressure 141/82 H 129/79 Blood Pressure [Right Arm] Blood Pressure Mean 101 99 Blood Pressure Mean [Right Arm] Blood Pressure Source Blood Pressure Source [Right Arm] Blood Pressure Position Blood Pressure Position [Right Arm] 02 Sat by Pulse Oximetry 97 97 99 Oxygen Delivery Method 01/02/25 20:18 Temperature 97.8 F Temperature Source Oral Pulse Rate 58 L Pulse Rate [Right Radial] Respiratory Rate 16 Blood Pressure 129/79 Blood Pressure [Right Arm] Blood Pressure Mean Blood Pressure Mean [Right Arm] Blood Pressure Source Automatic Cuff Blood Pressure Source [Right Arm] Blood Pressure Position Sitting Blood Pressure Position [Right Arm] 02 Sat by Pulse Oximetry Oxygen Delivery Method Room Air Orders (Tests/Meds): ED MEDICATIONS Discontinued Medications Generic Name Dose Route Start Last Admin Trade Name Freq PRN Reason Stop Dose Admin Ketorolac Tromethamine 15 mg 01/02/25 19:54 01/02/25 20:14 Ketorolac 30mg/Ml Vial IV 01/02/25 19:55 15 mg ONCE ONE Administration Lidocaine 1 each 01/02/25 19:54 01/02/25 20:13 Lidocaine 5% Transdermal Patch TD 01/02/25 19:55 1 each ONCE ONE Administration Methocarbamol 500 mg 01/02/25 18:11 01/02/25 19:11 Methocarbamol 500mg Tablet PO 01/02/25 18:12 500 mg ONCE ONE Administration ORDERS Category Date Time Status CT lumbar spine wo con Stat Cat Scan 01/02/25 18:11 Completed Medical Decision Narrative: In summary patient is an 64-year-old male who presents emergency department for evaluation of low back pain. No radicular symptoms noted, no weakness in his lower extremities, no saddle paresthesias, no numbness, tingling. Patient is hemodynamically stable upon arrival, afebrile. Unremarkable nonfocal physical exam. Patient has 2+ DTRs throughout lower extremities, negative for clonus. 5/5 strength.. Differential diagnosis includes cauda equina, herniated disc, arthritis. Initial workup will be conducted with CT of the lumbar spine without contrast. Initial interventions include p.o. Robaxin for pain control, did offer patient some steroids to help with inflammation but patient states he would prefer not to have any steroids at this time, has had poor response with steroids in the past. Initial workup reviewed by me [hematologic labs remarkable for? Imaging remarkable for? Urinalysis interpreted by me and remarkable for]. Upon repeat evaluation [patient had acceptable resolution of symptoms, had persistent pain for which additional events were conducted (describe interventions), tolerated p.o., was ambulatory, etc.]. Given this [patient is appropriate for discharge at this time will be discharged with a prescription for? The case was discussed with hospital medicine regarding management they will meet the patient in the service for continued evaluation at this time? Etc.] Places where you can increase complexity: I informally interpreted the patient's chest x-ray or CT read and is remarkable for? Documenting what the cardiac catheterization technician shows with rate, rhythm, time interpreted Consideration of a test but deferring. Example: I consider chest x-ray on this patient however given they have no oxygen requirement are clear to auscultation all lung joseph would be deferred. Social determinants of health: Given that patient is undomiciled increases complexity, given the patient has polysubstance abuse compounds all aspects of care. <Anca Jaquez, DO - Last Filed: 01/02/25 23:29> Jeet Inquiry Pt receiving controlled substance: No Vital Signs: 01/02/25 18:30 01/02/25 19:00 01/02/25 19:14 Temperature 98.6 F Temperature Source Oral Pulse Rate 58 L 58 L Pulse Rate [Right Radial] 56 L Respiratory Rate 16 Blood Pressure 114/73 124/73 Blood Pressure [Right Arm] 130/74 Blood Pressure Mean Blood Pressure Mean [Right Arm] 92 Blood Pressure Source Blood Pressure Source [Right Arm] Automatic Cuff Blood Pressure Position Blood Pressure Position [Right Arm] Supine 02 Sat by Pulse Oximetry 93 L 99 98 Oxygen Delivery Method Room Air Room Air Room Air 01/02/25 19:30 01/02/25 20:00 01/02/25 20:15 Temperature Temperature Source Pulse Rate 53 L 58 L 63 Pulse Rate [Right Radial] Respiratory Rate Blood Pressure 141/82 H 129/79 Blood Pressure [Right Arm] Blood Pressure Mean 101 99 Blood Pressure Mean [Right Arm] Blood Pressure Source Blood Pressure Source [Right Arm] Blood Pressure Position Blood Pressure Position [Right Arm] 02 Sat by Pulse Oximetry 97 97 99 Oxygen Delivery Method 01/02/25 20:18 Temperature 97.8 F Temperature Source Oral Pulse Rate 58 L Pulse Rate [Right Radial] Respiratory Rate 16 Blood Pressure 129/79 Blood Pressure [Right Arm] Blood Pressure Mean Blood Pressure Mean [Right Arm] Blood Pressure Source Automatic Cuff Blood Pressure Source [Right Arm] Blood Pressure Position Sitting Blood Pressure Position [Right Arm] 02 Sat by Pulse Oximetry Oxygen Delivery Method Room Air Orders (Tests/Meds): ED MEDICATIONS Discontinued Medications Generic Name Dose Route Start Last Admin Trade Name Sukhi PRN Reason Stop Dose Admin Ketorolac Tromethamine 15 mg 01/02/25 19:54 01/02/25 20:14 Ketorolac 30mg/Ml Vial IV 01/02/25 19:55 15 mg ONCE ONE Administration Lidocaine 1 each 01/02/25 19:54 01/02/25 20:13 Lidocaine 5% Transdermal Patch TD 01/02/25 19:55 1 each ONCE ONE Administration Methocarbamol 500 mg 01/02/25 18:11 01/02/25 19:11 Methocarbamol 500mg Tablet PO 01/02/25 18:12 500 mg ONCE ONE Administration ORDERS Category Date Time Status CT lumbar spine wo con Stat Cat Scan 01/02/25 18:11 Completed Medical Decision Narrative: In summary patient is an 64-year-old male who presents emergency department for evaluation of low back pain. No radicular symptoms noted, no weakness in his lower extremities, no saddle paresthesias, no numbness, tingling. Patient is hemodynamically stable upon arrival, afebrile. Unremarkable nonfocal physical exam. Patient has 2+ DTRs throughout lower extremities, negative for clonus. 5/5 strength.. Differential diagnosis includes cauda equina, herniated disc, arthritis. Initial workup will be conducted with CT of the lumbar spine without contrast. Initial interventions include p.o. Robaxin for pain control, did offer patient some steroids to help with inflammation but patient states he would prefer not to have any steroids at this time, has had poor response with steroids in the past. DO Leonid: I was consulted by the HEMAL, and we discussed the complexity of the problems being addressed. I approved the treatment and management plan for this patient's care in the emergency department, thus performing a substantive portion of the medical decision making. On my assessment of the patient, he is lying in bed in no acute distress and is neurologically intact in his lower extremities with no alarm findings concerning for cauda equina syndrome or spinal cord compression. He does have chronic degenerative change to his spine as well as spinal stenosis with some worsening of degeneration of one of his intervertebral discs. He states he is ready to go home after receiving Robaxin. I do feel he is appropriate for discharge home with prescription for Robaxin and instructions for close follow-up with primary care on an outpatient basis. He was also given instructions for follow-up with pain management. He was discharged with strict return precautions Anca Jaquez DO Critical Care <Debbie Holguin, [employer] - Last Filed: 01/03/25 12:05> Critical Care Time Critical Care Time: No
[2025-01-02] MEDS: METHOCARBAMOL 500MG TABLET 500 MG PO (19:11)
[2025-01-02] MEDS: LIDOCAINE 5% TRANSDERMAL PATCH 1 EACH TD (20:13)
[2025-01-02] MEDS: KETOROLAC 30MG/ML VIAL 15 MG IV (20:14)
== END 2025-01-02 20:20 | disposition home or self-care (01) ==
PROVIDERS: Emergency Provider Emergency Medicine; PCP Nurse Practitioner
DX: M51.362 Other intervertebral disc degeneration, lumbar region with discogenic back pain and lower extremity pain (principal); M48.07 Spinal stenosis, lumbosacral region
CPT/HCPCS: 72131; 96374; 99284; J1885

== ENCOUNTER 2025-01-24 11:48 | Day surgery (SDC) | payer MEDICARE, MEDICAID, SELFPAY ==
[2025-01-22 14:35] VITALS: BMI 29.7
[2025-01-24 12:55] VITALS: BP 124/73; PULSE 54; RESP 17; TEMP 36.5; O2SAT 96
[2025-01-24 12:58] LABS: POC Glucose,Bedside 97 (70-110)
[2025-01-24] MEDS: LACTATED RINGERS 1000ML 1,000 ML 50 ML IV (13:02)
--- NOTE | 2025-01-24 13:23 | P.PNANES_ITS ---
[facility] Disclaimer: The information contained in this section may have been updated after the patient was seen, as this information can be updated by other users. Medical History Chest pain Nausea, vomiting and diarrhea Abdominal pain Diastasis of rectus abdominis Kidney stone on left side Left flank pain Stye Bronchitis Concussion Corneal abrasion Foreign body, intraocular Left wrist sprain Urinary tract infection Right foot pain Left foot pain Metatarsalgia of right foot Diabetic foot Diabetes mellitus Left wrist amputee GERD (gastroesophageal reflux disease) Depression Anxiety Diabetes mellitus, type 2 Hyperlipidemia Hypertension Surgical History H/O left wrist surgery Hx of cataract surgery History of cholecystectomy History of hip replacement Family History Brother Asthma Hypertension Mother Cancer Hypertension Sister Diabetes Hypertension Brother Diabetes Hypertension Grandfather Tuberculosis Social History Smoking Status: Never smoker second hand exposure: No alcohol intake: never substance use type: denies use current occupational status: unemployed Travel in the last 8 weeks?: None lives independently: No marital status: Have you lived/traveled outside [place] in past 30 days?: No Contact w/someone who lives/traveled outside [place] past 30 days?: No Exposure to someone with infectious disease in past 14 days?: No Do you have a fever (greater than 100.4 F or 38 C)?: No Have you tested positive for COVID-19?: No Exposed to someone with COVID-19 in past 14 days?: No Do you have a sore throat?: No Do you have a cough?: No Do you have any weakness?: No Do you have any diarrhea?: No Are you experiencing any unusual bleeding?: No Do you have any muscle aches/pain?: No Do you have any abdominal pain?: No Are you experiencing loss of taste or smell?: No [facility] Anesthesia Checklist Patient Identification Patient Identification: Arm Band and Family Structural Data Admitted From: Home Planned Operative Procedure/s: EGD Consent for Planned Operative Procedure(s) Verified: Yes Verified Documents: Surgical Consent, History and Physical and Cardiac Clearance NPO Status Verified Time NPO: 00:00 Additional verifications Patient : No Anesthesia Reactions: No Hx Blood Transfusions: No Blood Transfusion Reaction: No Cephalosporin Allergy: No Previous Colonoscopy: Yes Airway Assessment Mallampati Score:: Class II C-Spine Mobility Assessed: Yes TMJ Mobility Assessed: Yes Dentition: Edentulous Neurological Assessment Level of Consciousness: Awake, Alert, Appropriate and Follows Commands Hx Seizures: No Numbness or tingling in extremities: No Anesthesia Plan Anesthesia Risk discussed: Yes ASA Class: II Anesthesia Type: MAC Preoperative Comments Pre-Operative Comments: HTN. Occasional s tones. Ozempic once per week, otherwise NIDDM.
--- NOTE | 2025-01-24 13:28 | EXP.ANES.CKL ---
[facility] Disclaimer: The information contained in this section may have been updated after the patient was seen, as this information can be updated by other users. Medical History Chest pain Nausea, vomiting and diarrhea Abdominal pain Diastasis of rectus abdominis Kidney stone on left side Left flank pain Stye Bronchitis Concussion Corneal abrasion Foreign body, intraocular Left wrist sprain Urinary tract infection Right foot pain Left foot pain Metatarsalgia of right foot Diabetic foot Diabetes mellitus Left wrist amputee GERD (gastroesophageal reflux disease) Depression Anxiety Diabetes mellitus, type 2 Hyperlipidemia Hypertension Surgical History H/O left wrist surgery Hx of cataract surgery History of cholecystectomy History of hip replacement Family History Brother Asthma Hypertension Mother Cancer Hypertension Sister Diabetes Hypertension Brother Diabetes Hypertension Grandfather Tuberculosis Social History Smoking Status: Never smoker second hand exposure: No alcohol intake: never substance use type: denies use current occupational status: unemployed Travel in the last 8 weeks?: None lives independently: No marital status: Have you lived/traveled outside [place] in past 30 days?: No Contact w/someone who lives/traveled outside [place] past 30 days?: No Exposure to someone with infectious disease in past 14 days?: No Do you have a fever (greater than 100.4 F or 38 C)?: No Have you tested positive for COVID-19?: No Exposed to someone with COVID-19 in past 14 days?: No Do you have a sore throat?: No Do you have a cough?: No Do you have any weakness?: No Do you have any diarrhea?: No Are you experiencing any unusual bleeding?: No Do you have any muscle aches/pain?: No Do you have any abdominal pain?: No Are you experiencing loss of taste or smell?: No [facility] Anesthesia Checklist Patient Identification Patient Identification: Arm Band and Family Structural Data Admitted From: Home Planned Operative Procedure/s: EGD Consent for Planned Operative Procedure(s) Verified: Yes Verified Documents: Surgical Consent and History and Physical NPO Status Verified Time NPO: 00:00 Additional verifications Patient : No Anesthesia Reactions: No Hx Blood Transfusions: No Blood Transfusion Reaction: No Cephalosporin Allergy: No Previous Colonoscopy: Yes Airway Assessment Mallampati Score:: Class II C-Spine Mobility Assessed: Yes TMJ Mobility Assessed: Yes Dentition: Edentulous Neurological Assessment Level of Consciousness: Awake, Alert, Appropriate and Follows Commands Hx Seizures: No Numbness or tingling in extremities: No Anesthesia Plan Anesthesia Risk discussed: Yes ASA Class: II Anesthesia Type: MAC Preoperative Comments Pre-Operative Comments: HTN. Occasional kidney stones. Ozempic once per week otherwise NIDDM. Frequent heartburn. ,five allergies.
--- NOTE | 2025-01-24 13:52 | EXP.HP ---
History of Present Illness *Admission Date: 01/24/25 *History of present illness: Mr. Mata is a 64-year-old gentleman with epigastric abdominal pain, bloating and belching. He also has some bile acid diarrhea and elevated liver chemistries. He is here for diagnostic EGD. The examination is deemed medically necessary for upper endoscopy. The patient has been seen, interviewed and examined prior to the procedure by both myself and the anesthesia provider. [facility] Disclaimer: The information contained in this section may have been updated after the patient was seen, as this information can be updated by other users. Medical History Chest pain Nausea, vomiting and diarrhea Abdominal pain Diastasis of rectus abdominis Kidney stone on left side Left flank pain Stye Bronchitis Concussion Corneal abrasion Foreign body, intraocular Left wrist sprain Urinary tract infection Right foot pain Left foot pain Metatarsalgia of right foot Diabetic foot Diabetes mellitus Left wrist amputee GERD (gastroesophageal reflux disease) Depression Anxiety Diabetes mellitus, type 2 Hyperlipidemia Hypertension Surgical History H/O left wrist surgery Hx of cataract surgery History of cholecystectomy History of hip replacement Family History Brother Asthma Hypertension Mother Cancer Hypertension Sister Diabetes Hypertension Brother Diabetes Hypertension Grandfather Tuberculosis Social History Smoking Status: Never smoker second hand exposure: No alcohol intake: never substance use type: denies use current occupational status: unemployed Travel in the last 8 weeks?: None lives independently: No marital status: Have you lived/traveled outside US in past 30 days?: No Contact w/someone who lives/traveled outside US past 30 days?: No Exposure to someone with infectious disease in past 14 days?: No Do you have a fever (greater than 100.4 F or 38 C)?: No Have you tested positive for COVID-19?: No Exposed to someone with COVID-19 in past 14 days?: No Do you have a sore throat?: No Do you have a cough?: No Do you have any weakness?: No Do you have any diarrhea?: No Are you experiencing any unusual bleeding?: No Do you have any muscle aches/pain?: No Do you have any abdominal pain?: No Are you experiencing loss of taste or smell?: No Other Medical History Have you received the Flu Vaccine for this season: No Have you received the Pneumonia Vaccine: No Review of Systems Review of Systems Review of systems (narrative): Negative *Cardiovascular Comments: Negative *Gastrointestinal Comments: Negative *Genitourinary Comments: Negative *Musculoskeletal Comments: Negative *Neurologic Comments: Negative Meds Home Medications and Allergies Home Medications ?Medication ?Instructions ?Recorded ?Confirmed ?Type amlodipine 5 mg tablet 5 mg PO DAILY 05/29/24 01/24/25 History atorvastatin 20 mg tablet 20 mg PO HS 05/29/24 01/24/25 History empagliflozin 25 mg tablet 25 mg PO DAILY 05/29/24 01/24/25 History (Jardiance) gabapentin 600 mg tablet 600 mg PO TID 05/29/24 01/24/25 History mesalamine 0.375 gram 1.48 g PO DAILY 05/29/24 01/24/25 History capsule,extended release 24 hr (Apriso) semaglutide 0.25 mg or 0.5 mg (2 0.25 mg SQ WEEKLY 05/29/24 01/24/25 History mg/3 mL) subcutaneous pen injector (Ozempic) divalproex 500 mg tablet,extended 500 mg PO BID bipolar disease 10/15/24 01/24/25 History release 24 hr (Depakote ER) propranolol 10 mg tablet 10 mg PO BID tremors 10/15/24 01/24/25 History tamsulosin 0.4 mg capsule 0.4 mg PO HS 10/15/24 01/24/25 History esomeprazole magnesium 40 mg 40 mg PO BID 11/08/24 01/24/25 History capsule,delayed release ropinirole 2 mg tablet 2 mg PO DAILY 12/11/24 01/24/25 History methocarbamol 750 mg tablet 750 mg PO Q8H PRN pain #20 tabs 01/02/25 01/24/25 Rx New Prescriptions to Start Prescriptions: Allergies Allergy/AdvReac Type Severity Reaction Status Date / Time prednisone Allergy Mild Other Verified 01/24/25 12:49 levofloxacin (From Levaquin) Allergy Other Verified 01/24/25 12:49 lithium Allergy Other Verified 01/24/25 12:49 metronidazole (From Flagyl) Allergy Other Verified 01/24/25 12:49 mometasone furoate (From Allergy Other Verified 01/24/25 12:49 Asmanex Twisthaler) montelukast (From Singulair) Allergy Other Verified 01/24/25 12:49 Exam Data for Last 24 hours Vital signs and Labs for Last 24 Hours: Temp Pulse Resp BP Pulse Ox O2 Del Method 97.7 F 54 L 17 124/73 96 Room Air 01/24/25 12:55 01/24/25 12:55 01/24/25 12:55 01/24/25 12:55 01/24/25 12:55 01/24/25 12:55 Laboratory Results - last 24 hr 01/24/25 12:49: POC Glucose 97 I & O for Last 24 hours: Intake & Output 01/21/25 01/22/25 01/23/25 01/24/25 23:59 23:59 23:59 23:59 Weight 184 lb *Routine HEENT Exam Head: Present normocephalic Eye: Present EOMI and PERRL ENT: Present mucous membranes moist *Routine Neck Exam Neck: Present supple *Routine Respiratory Exam Respiratory: Present CTA bilaterally *Routine Cardiovascular Exam Cardiovascular: Present RRR *Routine Abdominal Exam Abdominal: Present soft and normoactive bowel sounds; Absent tenderness *Routine Rectal Exam Rectal:: deferred *Routine Genitalia Exam Genitalia:: deferred *Routine Extremities Exam Extremities: Absent cyanosis, clubbing or edema *Routine Skin Exam Skin: Present warm; Absent rash *Routine Neurological Exam Neurological: Present alert and oriented X3 Assessment and Plan *Assessment and plan (1) Epigastric pain: Status: Acute Category: Medical Code(s): R10.13 - Epigastric pain (2) Belching: Status: Acute Category: Medical Code(s): R14.2 - Eructation (3) Bloating: Status: Acute Category: Medical Code(s): R14.0 - Abdominal distension (gaseous) (4) GERD (gastroesophageal reflux disease): Status: Acute Category: Medical Code(s): K21.9 - Gastro-esophageal reflux disease without esophagitis (5) Diarrhea: Status: Acute Category: Medical Code(s): R19.7 - Diarrhea, unspecified (6) Elevated LFTs: Status: Acute Category: Medical Code(s): R79.89 - Other specified abnormal findings of blood chemistry Plan A/P: 1. Epigastric abdominal pain/dyspepsia with belching, bloating, reflux and diarrhea is the preprocedural diagnosis. The patient will be anesthetized/sedated using MAC sedation. The patient has been seen and examined. Cardiac and lung assessment prior to the examination is stable. Proceed with planned diagnostic EGD.
--- NOTE | 2025-01-24 13:54 | P.PCN_ITS ---
[facility] Procedure Note Date: 01/24/25 Time: 14:15 Procedure Note:: Upper Endoscopy Procedure Report: Esophagogastroduodenoscopy with cold biopsies Endoscopost: Rad Jacob II, MD Referring Physician: KRYSTA Triana Date of Procedure: January 24, 2025 Equipment: Olympus GIF 190 standard upper endoscope Sedation: MAC sedation Indications: Mr. Mata is a 64-year-old gentleman with chronic GERD. The patient did have a Collette fundoplication 7 years ago in [facility] (Dr. Shankar). He did have significant improvement of his GERD symptoms. The patient started Ozempic 7 or 8 months ago and started having worsening of his heartburn, reflux, belching (sulfur burps) and gassiness at that time. He also noted a ridge in the abdomen (diastasis of the rectus abdominis tendon). He has had cholecystectomy several years ago. He does report some epigastric abdominal discomfort. He still has some persistent heartburn symptoms even on esomeprazole twice daily. He does drink 2 to 3 cans of soda daily. Procedure: Prior to the procedure, a history and physical exam was performed, and patient's medications and allergies were reviewed. The risks, benefits and alternatives of the sedation and procedure were discussed with the patient. All questions were answered and informed consent was obtained. The patient was brought to the procedure room. Patient identification and proposed procedure were verified by the physician and the nurse. The patient was placed in a left lateral decubitus position and the scope was passed under direct vision. Throughout the procedure, the patient's blood pressure, pulse, and oxygen saturations were monitored continuously. The upper GI endoscopy was accomplished without difficulty. The patient tolerated the procedure well. Findings: The scope was passed directly into the upper esophagus and advanced to the fourth portion of duodenum and proximal jejunum. A cold biopsy was taken for disaccharidase assay in the proximal jejunum. There was a duodenal diverticulum in the third portion of the duodenum. The proximal jejunum, post bulbar duodenum and duodenal bulb were normal with normal mucosa and conniventes. The scope was withdrawn through a normal duodenal bulb and pylorus into the stomach. There was some bile reflux and retained digestive solid food content. There was some linear reactive gastropathy of the antrum. Upon retroflexion, there was evidence of prior Collette fundoplication/wrap with very small recurrent 1 to 2 cm hiatal hernia. The scope was then withdrawn into the esophagus. There were 2 tongues of salmon-colored mucosa and NBI was utilized for directed biopsies to rule out intestinal metaplasia/short segment Castaneda's esophagus. There was no evidence of reflux esophagitis and the remainder of the esophageal mucosa was normal. Impression: 1. 2 short tongues of salmon-colored mucosa in distal esophagus?rule out very short segment Castaneda's esophagus 2. Nonerosive GERD with small recurrent 1 to 2 cm hiatal hernia and primarily intact fundoplication 3. Retained gastric food content/gastric dysmotility?Ozempic effect 4. Bile reflux with linear reactive gastropathy of antrum 5. Duodenal diverticulum third portion Plan: I will follow-up the biopsies and disaccharidase assay. I would recommend addition of [id number] herbal Iberogast twice daily plus PPI therapy (esomeprazole) which I will refill. We will discuss additional treatment options.
[2025-01-24 14:22] VITALS: BP 121/71; PULSE 62; RESP 16; TEMP 36.2; O2SAT 95
[2025-01-24 14:32] VITALS: BP 116/68; PULSE 54; RESP 20; O2SAT 97
[2025-01-24 14:42] VITALS: BP 113/65; PULSE 58; RESP 16; O2SAT 97
[2025-01-24 14:53] VITALS: BP 125/69; PULSE 60; RESP 16; TEMP 36.3; O2SAT 98
[2025-01-29 14:16] LABS: Disclaimer Notes (.); Interpretation Notes (.); Lactase 36.89 (>/= 14.0); Maltase 373.66 (>/= 110.0); Palatinase 25.98 (>/= 8.5); Reference Notes (.); Sucrase 109.07 (>/= 25.0)
== END 2025-01-24 15:00 | disposition home or self-care (01) ==
PROVIDERS: PCP Nurse Practitioner; Visit Provider Internal Medicine Gastroenterology
PROC: 0DJ08ZZ Inspection of Upper Intestinal Tract, Via Natural or Artificial Opening Endoscopic (ICD-10-PCS; CPT 43239; principal; 2025-01-24 13:30)
DX: K21.9 Gastro-esophageal reflux disease without esophagitis (principal); R19.7 Diarrhea, unspecified; K44.9 Diaphragmatic hernia without obstruction or gangrene; K57.10 Diverticulosis of small intestine without perforation or abscess without bleeding; K31.89 Other diseases of stomach and duodenum; T38.3X5A Adverse effect of insulin and oral hypoglycemic [antidiabetic] drugs, initial encounter; E11.9 Type 2 diabetes mellitus without complications; E78.5 Hyperlipidemia, unspecified; I10 Essential (primary) hypertension; F41.9 Anxiety disorder, unspecified; F32.A Depression, unspecified; R94.5 Abnormal results of liver function studies; Z90.49 Acquired absence of other specified parts of digestive tract; Z56.0 Unemployment, unspecified; Z79.899 Other long term (current) drug therapy; Z79.84 Long term (current) use of oral hypoglycemic drugs; Z79.85 Long-term (current) use of injectable non-insulin antidiabetic drugs; Z88.8 Allergy status to other drugs, medicaments and biological substances; Z88.1 Allergy status to other antibiotic agents; Z88.3 Allergy status to other anti-infective agents; Z98.890 Other specified postprocedural states
CPT/HCPCS: 43239; 82657; 82962; J2003; J2704; J7120

== ENCOUNTER 2025-03-15 15:59 | Outpatient (CLI) | payer MEDICARE, MEDICAID, SELFPAY ==
--- OUTSIDE RECORDS SUMMARY | 2025-03-15 16:02 | XMS_ITS | Encounter Summary ---
Author Organization [employer] ([place], [place], [place], [place]) Address [address] [place] [address] Care Team Providers Care Yarn Sorter Name Role Phone Salomón Frausto PA-C Unavailable [phone] Edosn Miller MD Primary Care Provider [phone] Consuelo Segundo APRN Primary Care Provider [phone]- [phone] Encounter Details Date Type Department Care Team (Late st Contact Info) Description 12/05/2020 Transcribed Document [facility] [place] Family Medicine [address] [place] [address] ProviderGaurang MD [address] [place] [address] Social History Tobacco Use Types Packs/Day Years Used Date Smoking Tobacco: Never Assessed Sex and Gender Information Value Date Recorded Sex Assigned at Not on file Legal Sex Male 5:16 PM CDT Gender Identity Not on file Sexual Orientation Not on file documented as of this encounter Miscellaneous Notes * Cerner Conversion Note - Historical ProviderMD - 12/05/2020 1:11 PM CDT Stroke/Warfarin Instructions Entered On: 12/05/2020 13:11 EDT Performed On: 12/05/2020 13:11 EDT by Michelle Guzman Non Emp RN Stroke/Warfarin Instructions Stroke/TIA Discharge Ins : N/A Warfarin Discharge Ins : N/A Michelle Guzman Non Emp RN - 12/05/2020 13:11 EDT documented in this encounter Plan of Treatment Not on file documented as of this encounter Visit Diagnoses Not on filedocumented in this encounter Care Teams Yarn Sorter Relationship Specialty Start Date End Date Edson Miller MD [address] [place] [address] PCP - General Internal Medicine/Pediatrics 07/21/22 07/11/24 Consuelo Segundo, RADIATION CONTROL HEALTH PHYSICIST 209 [facility] [address] [place] [address] PCP - General Family Medicine 07/12/24 Salomón Frausto PA-C [address] [place] [address] Orthopedist Physician Quarantine Officer 05/07/22 documented as of this encounter
--- OUTSIDE RECORDS SUMMARY | 2025-03-15 16:02 | XMS_ITS | Encounter Summary ---
Author Organization [employer] ([place], [place], [place], [place]) Address [address] [place] [address] Care Team Providers Care Research Affiliate Name Role Phone Salomón Frausto PA-C Unavailable [phone] Edson Miller MD Primary Care Provider [phone] Consuelo Segundo APRN Primary Care Provider [phone]- [phone] Encounter Details Date Type Department Care Team (Late st Contact Info) Description 12/05/2020 Transcribed Document [facility] [place] Family Medicine [address] [place] [address] ProviderGaurang MD [address] [place] [address] Social History Tobacco Use Types Packs/Day Years Used Date Smoking Tobacco: Never Assessed Sex and Gender Information Value Date Recorded Sex Assigned at Not on file Legal Sex Male 5:16 PM CDT Gender Identity Not on file Sexual Orientation Not on file documented as of this encounter Miscellaneous Notes * Cerner Conversion Note - Historical ProviderMD - 12/05/2020 4:03 PM CDT Nursing Discharge Summary Entered On: 12/05/2020 16:05 EDT Performed On: 12/05/2020 16:03 EDT by Indu Bansal, paralegal specialist Documentation Discharge Date/Time : 12/05/2020 15:58 EDT Patient Disposition, General : Discharge Discharge To : Home with ambulatory/outpatient follow-up Mode Of Departure, General Discharge : Private vehicle Accompanied By, Discharge : Friend IV Discontinued : Yes Personal Belongings With Patient : Yes Pt's Own Supply of Medications Returned : No patient supply of medications to return Prescriptions Given to Patient : Yes Medications Given to Patient : No Discharge Instructions Reviewed With, Opportunity For Questions Given : Patient Patient Education Completed : Yes Number of Prescriptions Given : 2 Teaching Method : Explanation, Printed materials Teaching Evaluation : Verbalizes understanding Indu Bansal RN - 12/05/2020 16:03 EDT documented in this encounter Plan of Treatment Not on file documented as of this encounter Visit Diagnoses Not on filedocumented in this encounter Care Teams Research Affiliate Relationship Specialty Start Date End Date Edson Miller MD [address] [place] [address] PCP - General Internal Medicine/Pediatrics 07/21/22 07/11/24 Consuelo Segundo, EXERCISE SCIENCE INTERNSHIP 209 [facility] [address] [place] [address] PCP - General Family Medicine 07/12/24 Salomón Frausto PA-C [address] [place] [address] Orthopedist Physician Drywall Hanger Framer 05/07/22 documented as of this encounter
--- OUTSIDE RECORDS SUMMARY | 2025-03-15 16:02 | XMS_ITS | Encounter Summary ---
Author Organization [employer] ([place], [place], [place], [place]) Address [address] [place] [address] Care Team Providers Care Recorder Of Deeds Name Role Phone Salomón Frausto PA-C Unavailable [phone] Edson Miller MD Primary Care Provider [phone] Consuelo Segundo APRN Primary Care Provider [phone] Encounter Details Date Type Department Care Team (Late st Contact Info) Description 12/05/2020 Transcribed Document [facility] [place] Family Medicine [address] [place] [address] ProviderGaurang MD [address] [place] [address] Social History Tobacco Use Types Packs/Day Years Used Date Smoking Tobacco: Never Assessed Sex and Gender Information Value Date Recorded Sex Assigned at Not on file Legal Sex Male 5:16 PM CDT Gender Identity Not on file Sexual Orientation Not on file documented as of this encounter Miscellaneous Notes * Cerner Conversion Note - Historical ProviderMD - 12/05/2020 9:37 AM CDT DATE OF DISCHARGE: 12/05/2020 DISCHARGE DIAGNOSES: 1. Recent head trauma with concussion. 2. History of tremors. 3. Gastroparesis. 4. Irritable bowel syndrome. 5. Hypertension. 6. Hyperlipidemia. 7. Benign prostatic hyperplasia. 8. Gastroesophageal reflux disease. 9. Obesity. DISCHARGING INSTRUCTIONS: Diet according to [place] [employer]. Activities, as tolerated. Followup appointment with his primary care physician in 3 to 4 days. Followup appointment with Neurology in 1 to 2 weeks. DISPOSITION: Home. DISCHARGING MEDICATIONS: 1. Diclofenac potassium 1 tablet 3 times daily. 2. Nexium 40 mg twice daily. 3. Glycopyrrolate 2 mg twice daily. 4. Flonase once daily. 5. Norvasc 5 mg daily. 6. Flexeril 5 mg 3 times daily as needed. 7. Depakote 500 mg in a.m. and 1000 mg in p.m. 8. Gabapentin 300 mg in a.m. and 600 mg in p.m. 9. Mesalamine 400 mg four caps twice a day. 10. Oxycodone 5 mg q.6 hours as needed. 11. Primidone 250 mg daily. 12. Crestor 5 mg at bedtime. 13. Flomax 0.4 mg daily. HISTORY AND HOSPITAL COURSE: This is a 60-year-old male, admitted to the hospital with head trauma/concussion. 1. Head trauma/concussion. The patient admitted to the hospital, had been evaluated by neurologist. MRI of the brain done with no acute abnormality. The patient is improving and asymptomatic at this point. The patient will be discharged home on Flexeril and oxycodone as needed and follow up as an outpatient with Neurology. 2. Hypertension. We will resume home medication. 3. Headache. The patient is on Depakote, to be continued. 4. History of irritable bowel syndrome. We will resume home medication and follow up as an outpatient. 5. All other medical problems, medication to be continued as mentioned. The patient is medically stable, will be discharged home today to follow up as an outpatient. Plan discussed with the patient, with RN. Chart was reviewed. Time spent, 40 minutes. /[id number] MD TONG Scruggs/ALEX / TONG / MODL /[id number] Electronically signed by [facility] April Checkout Supervisor Cerner at 11/26/2022 6:14 PM CDT documented in this encounter Plan of Treatment Not on file documented as of this encounter Visit Diagnoses Not on filedocumented in this encounter Care Teams Recorder Of Deeds Relationship Specialty Start Date End Date Edson Miller MD [address] [place] [address] PCP - General Internal Medicine/Pediatrics 07/21/22 07/11/24 Consuelo Segundo, ENOLOGIST 209 [facility] [address] [place] [address] PCP - General Family Medicine 07/12/24 Salomón Frausto PA-C [address] [place] [address] Orthopedist Physician A&P Technician 05/07/22 documented as of this encounter
--- OUTSIDE RECORDS SUMMARY | 2025-03-15 16:02 | XMS_ITS | Encounter Summary ---
Author Organization [employer] ([place], [place], [place], [place]) Address [address] [place] [address] Care Team Providers Care Offshore Diver Name Role Phone Salomón Frausto PA-C Unavailable [phone] Edson Miller MD Primary Care Provider [phone] Consuelo Segundo APRN Primary Care Provider [phone]- [phone] Encounter Details Date Type Department Care Team (Late st Contact Info) Description 12/05/2020 Transcribed Document [facility] [place] Family Medicine [address] [place] [address] ProviderGaurang MD [address] [place] [address] Social History Tobacco Use Types Packs/Day Years Used Date Smoking Tobacco: Never Assessed Sex and Gender Information Value Date Recorded Sex Assigned at Not on file Legal Sex Male 5:16 PM CDT Gender Identity Not on file Sexual Orientation Not on file documented as of this encounter Miscellaneous Notes * Cerner Conversion Note - Historical ProviderMD - 12/05/2020 2:00 AM CDT Stock And Station Agent Details Entered On: 12/05/2020 4:57 EDT Performed On: 12/05/2020 2:00 EDT by Loki Coffey Non Emp RN Order Details Order Detail : N/A Lift/Transfer : Minimal Central Line Order Detail : No Room Service : Appropriate Arterial Line : No Patient Needs Meds Crushed/Liquid : No Loki Coffey Non Emp RN - 12/05/2020 4:57 EDT documented in this encounter Plan of Treatment Not on file documented as of this encounter Visit Diagnoses Not on filedocumented in this encounter Care Teams Offshore Diver Relationship Specialty Start Date End Date Edson Miller MD [address] [place] [address] PCP - General Internal Medicine/Pediatrics 07/21/22 07/11/24 Consuelo Segundo, FAST FOOD SHIFT LEAD 209 [facility] [address] [place] [address] PCP - General Family Medicine 07/12/24 Salomón Frausto PA-C [address] [place] [address] Orthopedist Physician Job Tracer 05/07/22 documented as of this encounter
--- OUTSIDE RECORDS SUMMARY | 2025-03-15 16:02 | XMS_ITS | Encounter Summary ---
Author Organization [employer] ([place], [place], [place], [place]) Address [address] [place] [address] Care Team Providers Care Pit Slagman Name Role Phone Salomón Frausto PA-C Unavailable [phone] Edson Miller MD Primary Care Provider [phone] Consuelo Segundo APRN Primary Care Provider [phone]- [phone] Encounter Details Date Type Department Care Team (Late st Contact Info) Description 12/05/2020 Transcribed Document [facility] [place] Family Medicine [address] [place] [address] ProviderGaurang MD [address] [place] [address] Social History Tobacco Use Types Packs/Day Years Used Date Smoking Tobacco: Never Assessed Sex and Gender Information Value Date Recorded Sex Assigned at Not on file Legal Sex Male 5:16 PM CDT Gender Identity Not on file Sexual Orientation Not on file documented as of this encounter Miscellaneous Notes * Cerner Conversion Note - Historical ProviderMD - 12/05/2020 9:37 AM CDT UM Authorization Entered On: 12/05/2020 9:37 EDT Performed On: 12/05/2020 9:37 EDT by MAEGAN NÚÑEZ, RN-Utilization Review Primary Insurance Authorization Authorization and Policy Numbers : Insurance 1 Health Plan: MEDICARE Policy Number: [id number] Authorization Number: Insurance 2 Health Plan: MEDICAID QMB Policy Number: [id number] Authorization Number: Insurance Primary Name : MEDICARE Policy Number: [id number] Authorized Service Begin Date-Primary : 12/04/2020 EDT Historical Authorization Comments-Primary : No Authorization Comments Found MAEGAN NÚÑEZ, RN-Utilization Review - 12/05/2020 9:37 EDT Electronically signed by [facility] Conversion Lining Ironer Cerner at 11/26/2022 6:02 PM CDT documented in this encounter Plan of Treatment Not on file documented as of this encounter Visit Diagnoses Not on filedocumented in this encounter Care Teams Pit Slagman Relationship Specialty Start Date End Date Edson Miller MD [address] [place] [address] PCP - General Internal Medicine/Pediatrics 07/21/22 07/11/24 Consuelo Segundo, FINAL RAIL CUTTER 209 [facility] 200 [place] [address] PCP - General Family Medicine 07/12/24 Salomón Frausto PA-Anisha [address] [place] [address] Orthopedist Physician Customer Account Specialist 05/07/22 documented as of this encounter
--- OUTSIDE RECORDS SUMMARY | 2025-03-15 16:02 | XMS_ITS | Encounter Summary ---
Author Organization [facility] [facility] [employer] ([place], [place], [place], [place]) Address [address] [place] [address] Care Team Providers Care Trouble Dispatcher Name Role Phone Salomón Frausto PA-C Unavailable [phone] Edson Miller MD Primary Care Provider [phone] Consuelo Segundo APRN Primary Care Provider [phone]- [phone] Encounter Details Date Type Department Care Team (Late st Contact Info) Description 12/05/2020 Transcribed Document [facility] [place] [address] [place] [address] ProviderGaurang MD [address] [place] [address] Social History Tobacco Use Types Packs/Day Years Used Date Smoking Tobacco: Never Assessed Sex and Gender Information Value Date Recorded Sex Assigned at Not on file Legal Sex Male 5:16 PM CDT Gender Identity Not on file Sexual Orientation Not on file documented as of this encounter Miscellaneous Notes * Cerner Conversion Note - Historical ProviderMD - 12/05/2020 3:51 PM CDT Discharge Summary, PT Entered On: 12/05/2020 15:53 EDT Performed On: 12/05/2020 15:51 EDT by CARLOS HAM, PT Discharge Summary Discharge Summary Provider Notified : Physical Therapy Reason for Discharge : Discharge order Discharged to, Therapy : Home, with family care Discharge Summary Comment, PT : pt supervision supine to/from sit and sit to/from stand and able to amb x 150 ft with min A using hand held assist, but had LOB. Pt could benefit from home health or outpatient PTx. Goals not meet due to pt only seen for initial eval. CARLOS HAM, PT - 12/05/2020 15:51 EDT Sewing Machine Tester Goals Mobility/Bed Mobility LTG PT Grid Goal #1 Goal #2 Activity : Supine to sit Sit to stand Assist : Independent, complete Independent, complete Date to Meet : 12/18/2020 EDT 12/18/2020 EDT Goal Status : Not met Not met CARLOS HAM, PT - 12/05/2020 15:51 EDT CARLOS HAM, PT - 12/05/2020 15:51 EDT Ambulation LTG Grid Goal #1 Device : None Distance : 300ft without LOB in < 2min Assist : Independent, complete Date to Meet : 12/18/2020 EDT Goal Status : Not met CARLOS HAM, PT - 12/05/2020 15:51 EDT Electronically signed by Poonam [facility] Conversion Police Matron Cerner at 11/26/2022 6:15 PM CDT documented in this encounter Plan of Treatment Not on file documented as of this encounter Visit Diagnoses Not on filedocumented in this encounter Care Teams Trouble Dispatcher Relationship Specialty Start Date End Date Edson Miller MD [address] [place] [id number] PCP - General Internal Medicine/Pediatrics 07/21/22 07/11/24 Consuelo Segundo, COMMERCIAL ACCOUNT OFFICER [address] [facility] [address] [place] [address] PCP - General Family Medicine 07/12/24 Salomón Frausto PA-C [address] [place] [address] Orthopedist Physician Satellite Communications Operator 05/07/22 documented as of this encounter
--- OUTSIDE RECORDS SUMMARY | 2025-03-15 16:02 | XMS_ITS | Encounter Summary ---
Author Organization [employer] ([place], [place], [place], [place]) Address [address] [place] [address] Care Team Providers Care Shade Cloth Finisher Name Role Phone Salomón Frausto PA-C Unavailable [phone] Edson Miller MD Primary Care Provider [phone] Consuelo Segundo APRN Primary Care Provider [phone]- [phone] Encounter Details Date Type Department Care Team (Late st Contact Info) Description 12/05/2020 Transcribed Document [facility] [place] [facility] [place] [address] ProviderGaurang MD [address] [place] [address] Social History Tobacco Use Types Packs/Day Years Used Date Smoking Tobacco: Never Assessed Sex and Gender Information Value Date Recorded Sex Assigned at Not on file Legal Sex Male 5:16 PM CDT Gender Identity Not on file Sexual Orientation Not on file documented as of this encounter Miscellaneous Notes * Cerner Conversion Note - Historical ProviderMD - 12/05/2020 1:08 PM CDT Patient Education Materials Follows: FAQ - Patient COVID-19 testing Why do I need a COVID-19 test in the hospital? We are testing patients as part of an overall effort to ensure the safety of our patients, staff and providers, and to limit the spread of the novel coronavirus throughout our community. What happens if I test positive for COVID-19? Any scheduled elective procedure will be postponed and treatment for the coronavirus will follow the protocol that is currently in place. If you are admitted to the hospital, we will use droplet precautions for patients who test positive for COVID-19. If I'm a patient, should I wear a mask? Yes. When you are in your room alone, you may remove your mask. When anyone enters your room, you should put your mask back on. Will I be allowed to have visitors if I am admitted to the hospital with COVID-19? As part of the standard care for COVID-19 patients, visitors will not be allowed to protect them from potential exposure to the novel coronavirus. If you have a health care support person with you during a pending test and the test comes back positive, your visitor will be asked to leave and follow up with their primary care provider. Public health may reach out to them to complete contact tracing. Will my status as COVID-19 positive be reported? Because COVID-19 is a public health threat, all positive cases are reported through the local health department and the [place] Department for Public Health. Those organizations are responsible for monitoring public health threats. What is contact tracing? The public health departments at the state and local levels use contact tracing to prevent the spread of infectious disease. They will work to identify people who have COVID-19 and their contacts who may have been exposed. What does contact tracing involve? Typically, a contact tracer will interview patients with COVID-19 to identify everyone with whom they have had close contact during the time they may have been infectious and then notify those contacts of potential exposure and refer them for testing. They may monitor the contacts for symptoms of COVID-19 and connect the contacts with services they may need during a recommended self-quarantine period. The patient's name is not revealed to anyone during the contact tracing interviews, even if a contact asks. Who would be considered a close contact ? According to the CDC, a close contact is defined as someone who was within 6 feet of an infected person for at least 15 minutes, starting from 48 hours before the person began feeling sick until the time the patient was isolated. What can a close contact expect during this process? A contact tracer from the health department will contact that person to inform them they have been exposed to COVID-19. If that happens, the contact should self-quarantine for 14 days, starting from the last date of possible exposure, monitor their health, wear a face covering and maintain social distancing - at least 6 feet from others at all times. Should a close contact seek medical care? Close contacts should take their temperature twice a day, watch for COVID-19 symptoms and notify the health department if they develop symptoms. They should also notify people with whom they have had recent close contact if they become ill. They should seek medical care if symptoms worsen or become severe, including trouble breathing, persistent pain or pressure in the chest, confusion, inability to wait or stay awake, or bluish lips or face. Steps to Help Prevent the Spread of COVID-19 if You Are Sick In all cases, follow the guidance of your health care provider and local health department. Your local health department determines the length of time for quarantine and will notify you with detailed information. Monitor your symptoms. Common symptoms of COVID-19 include fever, fatigue, diarrhea/vomiting, loss of taste and smell, and cough. Trouble breathing is a more serious symptom that means you should get medical attention. If you develop emergency warning signs for COVID-19 get medical attention immediately. Emergency warning signs include*: ??? Trouble breathing ??? Persistent pain or pressure in the chest ??? New confusion or inability to arouse ??? Bluish lips or face *This list is not all inclusive. Please consult your medical provider for any other symptoms that are severe or concerning. Call 911 if you have a medical emergency. If you have a medical emergency and need to call 911, notify the dielectric machine operator that you have, or think you might have, COVID-19. If possible, put on a facemask before medical help arrives. Stay home except to get medical care. ??? Stay home: Most people with COVID-19 have mild illness and can recover at home without medical care. Do not leave your home, except to get medical care. Do not visit public areas. ??? Stay in touch with your doctor. Call before you get medical care. Be sure to get care if you have trouble breathing, or have any other emergency warning signs, or if you think it is an emergency. Separate yourself from other people in your home; this is known as home isolation. ??? Stay away from others: As much as possible, stay away from others. You should stay in a specific sick room if possible, and away from other people in your home. Use a separate bathroom, if available. Call ahead before visiting your doctor. ??? Call ahead: Many medical visits for routine care are being postponed or done by phone or telemedicine. If you have a medical appointment that cannot be postponed, call your doctor's office, and tell them you have or may have COVID-19. This will help the office protect themselves and other patients. If you are sick, wear a facemask in the following situations, if available. ??? If you are sick: You should wear a facemask, if available, when you are around other people (including before you enter a health care provider's office). ??? If you are caring for others: If the person who is sick is not able to wear a facemask (for example, because it causes trouble breathing), then as their caregiver, you should wear a facemask when in the same room with them. Visitors, other than caregivers, are not recommended. Cover your coughs and sneezes. ??? Cover: Cover your mouth and nose with a tissue when you cough or sneeze. ??? Dispose: Throw used tissues into a lined trash can. ??? Wash hands: Immediately wash your hands with soap and water for at least 20 seconds. If soap and water are not available, clean your hands with an alcohol-based hand respiratory care instructor that contains at least 60% alcohol. Clean your hands often. ??? Wash hands: Wash your hands often with soap and water for at least 20 seconds when visibly dirty. This is especially important after blowing your nose, coughing or sneezing, and going to the bathroom, and before eating or preparing food. ??? Hand respiratory care instructor: Use an alcohol-based hand respiratory care instructor with at least 60% alcohol, covering all surfaces of your hands and rubbing them together until they feel dry. ??? Avoid touching: Avoid touching your eyes, nose and mouth with unwashed hands. Avoid sharing personal household items. ??? Do not share: Do not share dishes, drinking glasses, cups, eating utensils, towels or bedding with other people in your home. ??? Wash thoroughly after use: After using these items, wash them thoroughly with soap and water or put them in the sports coordinator. Clean all high-touch surfaces every day. Clean high-touch surfaces in your isolation area ( sick room and bathroom) every day; let a caregiver clean and disinfect high-touch surfaces in other areas of the home. ??? Clean and disinfect: Routinely clean high-touch surfaces in your sick room and bathroom. Let someone else clean and disinfect surfaces in common areas, but not your bedroom and bathroom. ? If a caregiver or other person needs to clean and disinfect a sick person's bedroom or bathroom, they should do so on an as-needed basis. The caregiver/other person should wear a mask and wait as long as possible after the sick person has used the bathroom. ? High-touch surfaces include phones, remote controls, counters, tabletops, doorknobs, bathroom fixtures, toilets, keyboards, tablets and bedside tables. ??? Clean and disinfect areas that may have blood, stool, or body fluids on them. ??? Household crew leader/control room operator and disinfectants: Clean the area or item with soap and water or another detergent if it is dirty. Then, use a household disinfectant. ?? Be sure to follow the instructions on the label to ensure safe and effective use of the product. Many products recommend keeping the surface wet for several minutes to ensure germs are killed. Many also recommend precautions such as wearing gloves and making sure you have good ventilation during use of the product. ?? Most EPA-registered household disinfectants should be effective. A full list of disinfectants can be found here: https://www.epa.gov/pesticide-registration/gcrd-j-vtxanoabhfnbj-erh-ckwspdz-hx rs-cov-2 Neurology Concussion, Adult A concussion is a brain injury from a hard, direct hit (trauma) to your head or body. This direct hit causes the brain to quickly shake back and forth inside the skull. A concussion may also be called a mild traumatic brain injury (TBI). Healing from this injury can take time. What are the causes? This condition is caused by: ??? A direct hit to your head, such as: ? Running into a player during a game. ? Being hit in a fight. ? Hitting your head on a hard surface. ??? A quick and sudden movement (jolt) of the head or neck, such as in a car crash. What are the signs or symptoms? The signs of a concussion can be hard to notice. They may be missed by you, family members, and doctors. You may look fine on the outside but may not act or feel normal. Physical symptoms ??? Headaches. ??? Being tired (fatigued). ??? Being dizzy. ??? Problems with body balance. ??? Problems seeing or hearing. ??? Being sensitive to light or noise. ??? Feeling sick to your stomach (nausea) or throwing up (vomiting). ??? Not sleeping or eating as you used to. ??? Loss of feeling (numbness) or tingling in the body. ??? Seizure. Mental and emotional symptoms ??? Problems remembering things. ??? Trouble focusing your mind (concentrating), organizing, or making decisions. ??? Being slow to think, act, react, speak, or read. ??? Feeling grouchy (irritable). ??? Having mood changes. ??? Feeling worried or nervous (anxious). ??? Feeling sad (depressed). How is this treated? This condition may be treated by: ??? Stopping sports or activity if you are injured. If you hit your head or have signs of concussion: ? Do not return to sports or activities the same day. ? Get checked by a doctor before you return to your activities. ??? Resting your body and your mind. ??? Being watched carefully, often at home. ??? Medicines to help with symptoms such as: ? Feeling sick to your stomach. ? Headaches. ? Problems with sleep. ? Avoid taking strong pain medicines (opioids) for a concussion. ??? Avoiding alcohol and drugs. ??? Being asked to go to a concussion clinic or a place to help you recover (rehabilitation center). Recovery from a concussion can take time. Return to activities only: ??? When you are fully healed. ??? When your doctor says it is safe. Follow these instructions at home: Activity ??? Limit activities that need a lot of thought or focus, such as: ? Homework or work for your job. ? Watching TV. ? Using the computer or phone. ? Playing memory games and puzzles. ??? Rest. Rest helps your brain heal. Make sure you: ? Get plenty of sleep. Most adults should get 7?9 hours of sleep each night. ? Rest during the day. Take naps or breaks when you feel tired. ??? Avoid activity like exercise until your doctor says its safe. Stop any activity that makes symptoms worse. ??? Do not do activities that could cause a second concussion, such as riding a bike or playing sports. ??? Ask your doctor when you can return to your normal activities, such as school, work, sports, and driving. Your ability to react may be slower. Do not do these activities if you are dizzy. General instructions ??? Take rqxb-lqc-wclgxom and prescription medicines only as told by your doctor. ??? Do not drink alcohol until your doctor says you can. ??? Watch your symptoms and tell other people to do the same. Other problems can occur after a concussion. Older adults have a higher risk of serious problems. ??? Tell your network security analyst, teachers, school nurse, school counselor, motorcoach operator, or wellness trainer about your injury and symptoms. Tell them about what you can or cannot do. ??? Keep all follow-up visits as told by your doctor. This is important. How is this prevented? It is very important that you do not get another brain injury. In rare cases, another injury can cause brain damage that will not go away, brain swelling, or . The risk of this is greatest in the first 7?10 days after a head injury. To avoid injuries: ? Stop activities that could lead to a second concussion, such as contact sports, until your doctor says it is okay. ? When you return to sports or activities: ? Do not crash into other players. This is how most concussions happen. ? Follow the rules. ? Respect other players. ? Get regular exercise. Do strength and balance training. ? Wear a helmet that fits you well during sports, biking, or other activities. ? Helmets can help protect you from serious skull and brain injuries, but they do not protect you from a concussion. Even when wearing a helmet, you should avoid being hit in the head. Contact a doctor if: ??? Your symptoms get worse or they do not get better. ??? You have new symptoms. ??? You have another injury. Get help right away if: ??? You have bad headaches or your headaches get worse. ??? You feel weak or numb in any part of your body. ??? You are mixed up (confused). ??? Your balance gets worse. ??? You keep throwing up. ??? You feel more sleepy than normal. ??? Your speech is not clear (is slurred). ??? You cannot recognize people or places. ??? You have a seizure. ??? Others have trouble waking you up. ??? You have behavior changes. ??? You have changes in how you see (vision). ??? You pass out (lose consciousness). Summary ??? A concussion is a brain injury from a hard, direct hit (trauma) to your head or body. ??? This condition is treated with rest and careful watching of symptoms. ??? If you keep having symptoms, call your doctor. This information is not intended to replace advice given to you by your health care provider. Make sure you discuss any questions you have with your health care provider. Document Revised: 03/15/2019 Document Reviewed: 03/15/2019 [employer] Patient Education ? 2020 [employer]. documented in this encounter Plan of Treatment Not on file documented as of this encounter Visit Diagnoses Not on filedocumented in this encounter Care Teams Shade Cloth Finisher Relationship Specialty Start Date End Date Edson Miller MD [address] [place] [address] PCP - General Internal Medicine/Pediatrics 07/21/22 07/11/24 Consuelo Segundo, BELLE [facility] [address] [place] [id number] PCP - General Family Medicine 07/12/24 Salomón Frausto PA-C [address] [place] [address] Orthopedist Physician Rn Clinical Documentation 05/07/22 documented as of this encounter
--- OUTSIDE RECORDS SUMMARY | 2025-03-15 16:02 | XMS_ITS | Encounter Summary ---
Author Organization [employer] ([place], [place], [place], [place]) Address [address] [place] [address] Care Team Providers Care Helper Metal Hanging Name Role Phone Salomón Frausto PA-C Unavailable [phone] Edson Miller MD Primary Care Provider [phone] Consuelo Segundo APRN Primary Care Provider [phone]- [phone] Encounter Details Date Type Department Care Team (Late st Contact Info) Description 12/05/2020 Transcribed Document [facility] [place] [address] [place] [id number] ProviderGaurang MD [address] [place] [address] Social History Tobacco Use Types Packs/Day Years Used Date Smoking Tobacco: Never Assessed Sex and Gender Information Value Date Recorded Sex Assigned at Not on file Legal Sex Male 5:16 PM CDT Gender Identity Not on file Sexual Orientation Not on file documented as of this encounter Miscellaneous Notes * Cerner Conversion Note - Historical ProviderMD - 12/05/2020 2:59 PM CDT [facility] [place] [address] KUSH MATA :1960 Visit Time:12/04/2020 Your Visit Summary Your Care Team Admitting Physician - ARMANDO SOTO MD-INT Attending Physician - AMY VILLALOBOS MD Primary Care Physician - LARRY, NOT LISTED Referring Physician - ARMANDO SOTO MD-INT Your Diagnosis Concussion with loss of consciousness of unspecified duration, initial encounter, Concussion with loss of consciousness of unspecified duration, initial encounter Discharge Vitals Temperature 36.6 ??C Heart Rate (Monitored) 58 Respiratory Rate 19 Blood Pressure 125/80 What to do next Follow-Up Appointments Follow Up with Follow up with primary care provider When Within 2 to 3 days Follow Up with Patient should call for a follow up appointment with his outpatient neurologist in [place]. When Within 2 to 3 days Medications What How Much When Instructions Next Dose cyclobenzaprine (cyclobenzaprine 5 mg oral tablet) 1 Tablet(s) Oral Three Times A Day Duration: 7 Day(s) Printed Prescription oxyCODONE (oxyCODONE 5 mg oral tablet) 1 Tablet(s) Oral Every 6 Hours as needed for Pain (Severe 7-10) Duration: 3 Day(s) Printed Prescription esomeprazole (NexIUM 40 mg oral delayed release capsule) 1 Capsule(s) Oral Two Times A Day gabapentin (gabapentin 300 mg oral capsule) 2 Capsule(s) Oral At Bedtime gabapentin (gabapentin 300 mg oral capsule) 1 Capsule(s) Oral Every Morning primidone (primidone 250 mg oral tablet) 1 Tablet(s) Oral At Bedtime amLODIPine (amLODIPine 5 mg oral tablet) 1 Tablet(s) Oral Every Day diclofenac (diclofenac potassium 50 mg oral tablet) 1 Tablet(s) Oral Three Times A Day divalproex sodium (divalproex sodium 500 mg oral delayed release tablet) 1 Tablet(s) Oral Every Morning divalproex sodium (divalproex sodium 500 mg oral delayed release tablet) 2 Tablet(s) Oral At Bedtime fluticasone nasal (fluticasone 50 mcg/ inh nasal spray) 1 Paradis(s) Nasal Every Day glycopyrrolate (glycopyrrolate 2 mg oral tablet) 1 Tablet(s) Oral Two Times A Day mesalamine (mesalamine 400 mg oral delayed release capsule) 4 Capsule(s) Oral Two Times A Day rosuvastatin (rosuvastatin 5 mg oral tablet) 1 Tablet(s) Oral At Bedtime tamsulosin (tamsulosin 0.4 mg oral capsule) 1 Capsule(s) Oral At Bedtime Take your medications faithfully. Do NOT skip medication. Do NOT stop taking medications without the direction of a physician. Carry a list of your medications with you at all times, and take this medication list with you to your first follow up visit. Report any side effects. Avoid herbal remedies unless discussed with your physician. As part of your treatment plan, your physician may have prescribed a limited course of a controlled substance. This medication may be given to help people with moderate or severe pain or for other medical conditions, but there are risks involved with treatment. Common side effects may include nausea, constipation, drowsiness, sweating, itching, dry mouth, and rash. More serious side effects may include cognitive and motor impairment, like problems with thinking, concentrating, alertness, and movement (e.g. slowed reflexes), and driving and operating heavy machinery can be dangerous. It is important for you to talk to your physician if you have these side effects or questions. These controlled substances can produce physical dependence and be habit-forming if taken for an extended period of time, which means that the body has gotten used to them and may experience withdrawal symptoms if they are abruptly stopped. Withdrawal symptoms can include runny nose, sweating, goose bumps, diarrhea, abdominal cramping, rapid heartbeat, difficulty sleeping, and nervousness. Please dispose of unused and medications per your retail pharmacy guidance. Allergies Asmanex HFA atorvastatin levoFLOXacin lithium montelukast predniSONE topiramate Immunizations This Visit No Immunizations Found Education Materials FAQ ??? Patient COVID-19 testing Why do I need [...] patients who test positive for COVID-19. If I???m a patient, should I wear a mask? [...] through the local health department and the [place] Department for Public Health. Those organizations are [...] need during a recommended self-quarantine period. The patient???s name is not revealed to anyone during the contact tracing interviews, even if a contact asks. Who would be considered a ???close contact?? ? According to the CDC, a close [...] a face covering and maintain social distancing ??? at least 6 feet from others at [...] and need to call 911, notify the straightedge machine operator helper that you have, or think you might [...] others. You should stay in a specific ???sick room?? if possible, and away from other people [...] (including before you enter a health care provider???s office). ??? If you are caring for [...] clean your hands with an alcohol-based hand wash oil pump operator that contains at least 60% alcohol. Clean your hands often. ??? Wash hands: Wash your hands often with soap and water for at least 20 seconds when visibly dirty. This is especially important after blowing your nose, coughing or sneezing, and going to the bathroom, and before eating or preparing food. ??? Hand wash oil pump operator: Use an alcohol-based hand wash oil pump operator with at least 60% alcohol, covering all [...] and water or put them in the register repairer. Clean all high-touch surfaces every day. Clean high-touch surfaces in your isolation area (???sick room?? and bathroom) every day; let a caregiver clean and disinfect high-touch surfaces in other areas of the home. ??? Clean and disinfect: Routinely clean high-touch surfaces in your ???sick room?? and bathroom. Let someone else clean and disinfect surfaces in common areas, but not your bedroom and bathroom. ? If a caregiver or other person needs to clean and disinfect a sick person???s bedroom or bathroom, they should do so [...] or body fluids on them. ??? Household catalogue maker and disinfectants: Clean the area or item with soap and water or another detergent if it is dirty. Then, use a household disinfectant. ??? Be sure to follow the instructions on the label to ensure safe and effective use of the product. Many products recommend keeping the surface wet for several minutes to ensure germs are killed. Many also recommend precautions such as wearing gloves and making sure you have good ventilation during use of the product. ??? Most EPA-registered household disinfectants should be effective. A full list of disinfectants can be found here: https://www.epa.gov/pesticide-registration/cbpy-x-ehipphmsgulsy-idn-qqgmptr-uu rs-cov-2 Concussion, Adult A concussion is a brain [...] plenty of sleep. Most adults should get 7???9 hours of sleep each night. ? Rest [...] you are dizzy. General instructions ??? Take hrfs-ccz-aysdekr and prescription medicines only as told by your doctor. ??? Do not drink alcohol until your doctor says you can. ??? Watch your symptoms and tell other people to do the same. Other problems can occur after a concussion. Older adults have a higher risk of serious problems. ??? Tell your demurrage worker, teachers, school nurse, school counselor, literacy coach, or epic trainer about your injury and symptoms. Tell [...] of this is greatest in the first 7???10 days after a head injury. To avoid [...] provider. Document Revised: 03/15/2019 Document Reviewed: 03/15/2019 [employer] Patient Education ?? 2020 [employer]. cyclobenzaprine (basilio fitch) Emilia, María Elena Pac with Cyclobenzaprine, Fexmid What is the most important information I should know about cyclobenzaprine? You should not use cyclobenzaprine if you have a thyroid disorder, heart block, congestive heart failure, a heart rhythm disorder, or you have recently had a heart attack. Do not use cyclobenzaprine if you have taken an MAO inhibitor in the past 14 days, such as isocarboxazid, linezolid, phenelzine, rasagiline, selegiline, or tranylcypromine. What is cyclobenzaprine? Cyclobenzaprine is a muscle relaxant. It works by blocking nerve impulses (or pain sensations) that are sent to your brain. Cyclobenzaprine is used together with rest and physical therapy to relieve muscle spasms caused by painful conditions such as an injury. Cyclobenzaprine may also be used for purposes not listed in this medication guide. What should I discuss with my healthcare provider before taking cyclobenzaprine? You should not use cyclobenzaprine if you are allergic to it, or if you have: ?? a thyroid disorder; ?? heart block, heart rhythm disorder, congestive heart failure; or ?? if you have recently had a heart attack. Cyclobenzaprine is not approved for use by anyone younger than 15 years old. Do not use cyclobenzaprine if you have taken an MAO inhibitor in the past 14 days. A dangerous drug interaction could occur. MAO inhibitors include isocarboxazid, linezolid, phenelzine, rasagiline, selegiline, and tranylcypromine. Some medicines can interact with cyclobenzaprine and cause a serious condition called serotonin syndrome. Be sure your doctor knows if you also take stimulant medicine, opioid medicine, herbal products, or medicine for depression, mental illness, Parkinson's disease, migraine headaches, serious infections, or prevention of nausea and vomiting. Ask your doctor before making any changes in how or when you take your medications. Tell your doctor if you have ever had: ?? liver disease; ?? glaucoma; ?? enlarged prostate; or ?? problems with urination. It is not known whether this medicine will harm an unborn baby. Tell your doctor if you are or plan to become . It may not be safe to breast-feed while using this medicine. Ask your doctor about any risk. Older adults may be more sensitive to the effects of this medicine. How should I take cyclobenzaprine? Follow all directions on your prescription label and read all medication guides or instruction sheets. Your doctor may occasionally change your dose. Use the medicine exactly as directed. Cyclobenzaprine is usually taken once daily for only 2 or 3 weeks. Follow your doctor's dosing instructions very carefully. Swallow the capsule whole and do not crush, chew, break, or open it. Take the medicine at the same time each day. Call your doctor if your symptoms do not improve after 3 weeks, or if they get worse. Store at room temperature away from moisture, heat, and light. What happens if I miss a dose? Take the medicine as soon as you can, but skip the missed dose if it is almost time for your next dose. Do not take two doses at one time. What happens if I overdose? Seek emergency medical attention or call the Poison Help line at . An overdose of cyclobenzaprine can be fatal. Overdose symptoms may include severe drowsiness, vomiting, fast heartbeats, tremors, agitation, or hallucinations. What should I avoid while taking cyclobenzaprine? Avoid driving or hazardous activity until you know how this medicine will affect you. Your reactions could be impaired. Avoid drinking alcohol. Dangerous side effects could occur. What are the possible side effects of cyclobenzaprine? Get emergency medical help if you have signs of an allergic reaction: hives; difficult breathing; swelling of your face, lips, tongue, or throat. Stop using cyclobenzaprine and call your doctor at once if you have: ?? fast or irregular heartbeats; ?? chest pain or pressure, pain spreading to your jaw or shoulder; or ?? sudden numbness or weakness (especially on one side of the body), slurred speech, balance problems. Seek medical attention right away if you have symptoms of serotonin syndrome, such as: agitation, hallucinations, fever, sweating, shivering, fast heart rate, muscle stiffness, twitching, loss of coordination, nausea, vomiting, or diarrhea. Serious side effects may be more likely in older adults. Common side effects may include: ?? drowsiness, tiredness; ?? headache, dizziness; ?? dry mouth; or ?? upset stomach, nausea, constipation. This is not a complete list of side effects and others may occur. Call your doctor for medical advice about side effects. You may report side effects to FDA at 1-801-BEU-1099. What other drugs will affect cyclobenzaprine? Using cyclobenzaprine with other drugs that make you drowsy can worsen this effect. Ask your doctor before using opioid medication, a sleeping pill, a muscle relaxer, or medicine for anxiety or seizures. Tell your doctor about all your other medicines, especially: ?? bupropion (Zyban, for smoking cessation); ?? meperidine; ?? tramadol; ?? verapamil; ?? cold or allergy medicine that contains an antihistamine (Benadryl and others); ?? medicine to treat Parkinson's disease; ?? medicine to treat excess stomach acid, stomach ulcer, motion sickness, or irritable bowel syndrome; ?? medicine to treat overactive bladder; or ?? bronchodilator asthma medication. This list is not complete. Other drugs may affect cyclobenzaprine, including prescription and lwnv-nds-vrejwsv medicines, vitamins, and herbal products. Not all possible drug interactions are listed here. Where can I get more information? Your pharmacist can provide more information about cyclobenzaprine. Remember, keep this and all other medicines out of the reach of children, never share your medicines with others, and use this medication only for the indication prescribed. Every effort has been made to ensure that the information provided by [employer]. ('[employer]') is accurate, up-to-date, and complete, but no guarantee is made to that effect. Drug information contained herein may be time sensitive. [employer] information has been compiled for use by healthcare practitioners and consumers in the [place] and therefore [employer] does not warrant that uses outside of the [place] are appropriate, unless specifically indicated otherwise. [employer] drug information does not endorse drugs, diagnose patients or recommend therapy. [employer] drug information is an informational resource designed to assist licensed healthcare practitioners in caring for their patients and/or to serve consumers viewing this service as a supplement to, and not a substitute for, the expertise, skill, knowledge and judgment of healthcare practitioners. The absence of a warning for a given drug or drug combination in no way should be construed to indicate that the drug or drug combination is safe, effective or appropriate for any given patient. [employer] does not assume any responsibility for any aspect of healthcare administered with the aid of information [employer] provides. The information contained herein is not intended to cover all possible uses, directions, precautions, warnings, drug interactions, allergic reactions, or adverse effects. If you have questions about the drugs you are taking, check with your doctor, nurse or pharmacist. Copyright 0804-1316 [employer]. Version: 5.01. Revision Date: 05/03/2018. oxycodone (ox i KOE done) Oxaydo, OxyCONTIN, Oxyfast, OxyIR, Roxicodone, Xtampza ER What is the most important information I should know about oxycodone? MISUSE OF OPIOID MEDICINE CAN CAUSE ADDICTION, OVERDOSE, OR . Keep the medication in a place where others cannot get to it. Taking opioid medicine during may cause life-threatening withdrawal symptoms in the . Fatal side effects can occur if you use opioid medicine with alcohol, or with other drugs that cause drowsiness or slow your breathing. What is oxycodone? Oxycodone is an opioid pain medication used to treat moderate to severe pain. The extended-release form of oxycodone is for zcwaib-kfc-nmdgp treatment of pain and should not be used on an as-needed basis for pain. Oxycodone may also be used for purposes not listed in this medication guide. What should I discuss with my healthcare provider before using oxycodone? You should not use oxycodone if you are allergic to it, or if you have: ?? severe asthma or breathing problems; or ?? a blockage in your stomach or intestines. You should not use oxycodone unless you are already using a similar opioid medicine and are tolerant to it. Most brands of oxycodone are not approved for use in people under 18. OxyContin should not be given to a child younger than 11 years old. Tell your doctor if you have ever had: ?? breathing problems, sleep apnea; ?? a head injury, or seizures; ?? drug or alcohol addiction, or mental illness; ?? liver or kidney disease; ?? urination problems; or ?? problems with your gallbladder, pancreas, or thyroid. If you use opioid medicine while you are , your baby could become dependent on the drug. This can cause life-threatening withdrawal symptoms in the baby after it is born. Babies born dependent on opioids may need medical treatment for several weeks. Ask a doctor before using opioid medicine if you are . Tell your doctor if you notice severe drowsiness or slow breathing in the nursing baby. How should I use oxycodone? Follow the directions on your prescription label and read all medication guides. Never use oxycodone in larger amounts, or for longer than prescribed. Tell your doctor if you feel an increased urge to take more of this medicine. Never share opioid medicine with another person, especially someone with a history of drug abuse or addiction. MISUSE CAN CAUSE ADDICTION, OVERDOSE, OR . Keep the medication in a place where others cannot get to it. Selling or giving away opioid medicine is against the law. Stop taking all other uqwmvl-oio-mghug opioid pain medicines when you start taking extended-release oxycodone. Take oxycodone with food. Swallow the capsule or tablet whole to avoid exposure to a potentially fatal overdose. Do not crush, chew, break, open, or dissolve. If you cannot swallow a capsule whole, open it and sprinkle the medicine into a spoonful of pudding or applesauce. Swallow the mixture right away without chewing. Do not save it for later use. Never crush or break an oxycodone pill to inhale the powder or mix it into a liquid to inject the drug into your vein. This can cause in . Measure liquid medicine carefully. Use the dosing syringe provided, or use a medicine dose-measuring device (not a kitchen spoon). You should not stop using oxycodone suddenly. Follow your doctor's instructions about tapering your dose. Store at room temperature, away from heat, moisture, and light. Keep track of your medicine. Oxycodone is a drug of abuse and you should be aware if anyone is using your medicine improperly or without a prescription. Do not keep leftover opioid medication. Just one dose can cause in someone using this medicine accidentally or improperly. Ask your pharmacist where to locate a drug take-back disposal program. If there is no take-back program, flush the unused medicine down the toilet. What happens if I miss a dose? Since oxycodone is used for pain, you are not likely to miss a dose. Skip any missed dose if it is almost time for your next dose. Do not use two doses at one time. What happens if I overdose? Seek emergency medical attention or call the Poison Help line at . An opioid overdose can be fatal, especially in a child or other person using the medicine without a prescription. Overdose symptoms may include severe drowsiness, pinpoint pupils, slow breathing, or no breathing. Your doctor may recommend you get naloxone (a medicine to reverse an opioid overdose) and keep it with you at all times. A person caring for you can give the naloxone if you stop breathing or don't wake up. Your caregiver must still get emergency medical help and may need to perform CPR (cardiopulmonary resuscitation) on you while waiting for help to arrive. Anyone can buy naloxone from a pharmacy or local health department. Make sure any person caring for you knows where you keep naloxone and how to use it. What should I avoid while using oxycodone? Do not drink alcohol. Dangerous side effects or could occur. Avoid driving or operating machinery until you know how oxycodone will affect you. Dizziness or severe drowsiness can cause falls or other accidents. Avoid medication errors. Always check the brand and strength of oxycodone you get from the pharmacy. What are the possible side effects of oxycodone? Get emergency medical help if you have signs of an allergic reaction: hives; difficult breathing; swelling of your face, lips, tongue, or throat. Opioid medicine can slow or stop your breathing, and may occur. A person caring for you should give naloxone and/or seek emergency medical attention if you have slow breathing with long pauses, blue colored lips, or if you are hard to wake up. Call your doctor at once if you have: ?? noisy breathing, sighing, shallow breathing, breathing that stops during sleep; ?? a slow heart rate or weak pulse; ?? a light-headed feeling, like you might pass out; ?? confusion, unusual thoughts or behavior; ?? seizure (convulsions); ?? low cortisol levels-- nausea, vomiting, loss of appetite, dizziness, worsening tiredness or weakness; or ?? high levels of serotonin in the body--agitation, hallucinations, fever, sweating, shivering, fast heart rate, muscle stiffness, twitching, loss of coordination, nausea, vomiting, diarrhea. Serious breathing problems may be more likely in older adults and in those who are debilitated or have wasting syndrome or chronic breathing disorders. Common side effects may include: ?? drowsiness, headache, dizziness, tiredness; or ?? constipation, stomach pain, nausea, vomiting. This is not a complete list of side effects and others may occur. Call your doctor for medical advice about side effects. You may report side effects to FDA at 4-777-QXS-3570. What other drugs will affect oxycodone? You may have breathing problems or withdrawal symptoms if you start or stop taking certain other medicines. Tell your doctor if you also use an antibiotic, antifungal medication, heart or blood pressure medication, seizure medication, or medicine to treat HIV or hepatitis C. Opioid medication can interact with many other drugs and cause dangerous side effects or . Be sure your doctor knows if you also use: ?? cold or allergy medicines, bronchodilator asthma/COPD medication, or a diuretic ('water pill'); ?? medicines for motion sickness, irritable bowel syndrome, or overactive bladder; ?? other opioids--opioid pain medicine or prescription cough medicine; ?? a sedative like Valium--diazepam, alprazolam, lorazepam, Xanax, Klonopin, Versed, and others; ?? drugs that make you sleepy or slow your breathing--a sleeping pill, muscle relaxer, medicine to treat mood disorders or mental illness; or ?? drugs that affect serotonin levels in your body--a stimulant, or medicine for depression, Parkinson's disease, migraine headaches, serious infections, or nausea and vomiting. This list is not complete and many other drugs may affect oxycodone. This includes prescription and snic-nim-luaqija medicines, vitamins, and herbal products. Not all possible drug interactions are listed here. Where can I get more information? Your pharmacist can provide more information about oxycodone. Remember, keep this and all other medicines out of the reach of children, never share your medicines with others, and use this medication only for the indication prescribed. Every effort has been made to ensure that the information provided by [employer]. ('[employer]') is accurate, up-to-date, and complete, but no guarantee is made to that effect. Drug information contained herein may be time sensitive. [employer] information has been compiled for use by healthcare practitioners and consumers in the [place] and therefore [employer] does not warrant that uses outside of the [place] are appropriate, unless specifically indicated otherwise. [employer] drug information does not endorse drugs, diagnose patients or recommend therapy. [employer] drug information is an informational resource designed to assist licensed healthcare practitioners in caring for their patients and/or to serve consumers viewing this service as a supplement to, and not a substitute for, the expertise, skill, knowledge and judgment of healthcare practitioners. The absence of a warning for a given drug or drug combination in no way should be construed to indicate that the drug or drug combination is safe, effective or appropriate for any given patient. [employer] does not assume any responsibility for any aspect of healthcare administered with the aid of information [employer] provides. The information contained herein is not intended to cover all possible uses, directions, precautions, warnings, drug interactions, allergic reactions, or adverse effects. If you have questions about the drugs you are taking, check with your doctor, nurse or pharmacist. Copyright 1739-0606 [employer]. Version: 14.02. Revision Date: 09/04/2020. Emergency Awareness and Preventative Care STROKE is an EMERGENCY Every Minute Counts Act FAST and Check for these signs: FACE Does the face look uneven? ARM Does one arm drift down? SPEECH Does their speech sound strange? TIME Call at any sign of stroke Stroke Risk Factors Atrial Fibrillation (irregular heartbeat) Diabetes Family history of stroke Heart Disease Heavy alcohol use High Blood Pressure High Cholesterol Physical inactivity and obesity Smoking Cigarette Smoking The facts are clear, cigarette smoking will shorten your life. Smoking can cause many illnesses along the way. As a healthcare provider, we recommend that you stop smoking. Assistance with quitting is available by contacting 0-813-BFFR-NOW. This is a free resource providing counseling, support, and referral. Or you may contact your personal physician. [employer] Suicide Prevention Lifeline: The National Suicide Prevention Lifeline is a national network of local crisis centers that provides free and confidential emotional support to people in suicidal crisis or emotional distress 24 hours a day, 7 days a week. Don't Wait! Stop a Heart Attack Before it Starts What is a heart attack? A heart attack is damage or to a part of the heart from severely decreased or lack of blood flow to the heart. Over time, arteries can become narrow from the buildup of fat and cholesterol, which is called plaque. The plaque can rupture causing a blood clot to form. When the blood clot forms, the artery can become severely narrowed or completely blocked, causing a heart attack. Heart attack is the leading cause of in the [place]. 85% of muscle damage occurs within the first 2 hours. Delay in the recognition of heart attack symptoms increases the chances of . Know the early symptoms of a heart attack: Nausea Feeling of fullness in chest Jaw Pain Pain that travels down one or both arms Fatigue/being tired Anxiety Back Pain Chest pressure, squeezing, or discomfort Shortness of breath Sweating, or a cold sweat Feeling of impending doom There are unusual signs of a heart attack, too! Women, the elderly, and diabetics may present with atypical symptoms: Fainting/dizziness Weakness Confusion Risk Factors for a Heart Attack Some heart disease risk factors, such as age and family history, cannot be changed. Others, like smoking and lack of exercise, can be changed. Smoking High Cholesterol High Blood Pressure Family History Obesity Age Gender (Males are at higher risk) Lack of Exercise Diabetes Diet Stress Excessive Alcohol Intake If you or someone you know is experiencing the signs and symptoms of a heart attack, DON???T DELAY. Call immediately and seek help. If someone collapses, perform CPR! Do not attempt to drive if you are having symptoms of heart attack. Hands-Only CPR Why Hands-Only CPR? Hands-Only CPR has been shown to be as effective as conventional CPR for cardiac arrests that occur outside of a hospital. Survival depends on immediately receiving CPR from someone nearby. How do you perform Hands-Only CPR? There are two easy steps: Call 9-1-1 if you see a teen or adult collapse Push hard and fast in the center of the chest at a beat of 100 beats per minute. Save a life! 4 WAYS TO GET AHEAD OF SEPSIS SEPSIS is a MEDICAL EMERGENCY. Time matters! Infections put you and your family at risk for a life-threatening condition called sepsis. Sepsis is the body's extreme response to an infection. It is life-threatening, and without timely treatment, sepsis can rapidly lead to tissue damage, organ failure, and . Sepsis happens when an infection you already have-in your skin, lungs, urinary tract or somewhere else-triggers a chain reaction throughout your body. 1 PREVENT INFECTIONS Take good care of chronic conditions. Talk to your doctor about getting the recommended vaccines. 2 PRACTICE GOOD HYGIENE Wash your hands frequently. Keep cuts or open sores clean and covered until they are healed. 3 KNOW THE SYMPTOMS Confusion or disorientation Shortness of breath High heart rate Fever, shivering, or feeling very cold Extreme pain or discomfort Clammy or sweaty skin 4 ACT FAST Get medical care IMMEDIATELY if you suspect sepsis or if you have an infection that is not getting better or is getting worse. To learn more about sepsis and how to prevent infections, visit www.cdc.gov/sepsis. Test Results Laboratory or Other Results This Visit (last charted value for your 12/04/2020 visit) Hematology 12/05/2020 5:50 AM WBC: 4.2 K/uL -- Normal range between ( 3.6 and 9.5 ) RBC: 4.19 Million/uL -- Normal range between ( 4.20 and 5.70 ) Hct: 40.7 % -- Normal range between ( 40.1 and 51.0 ) Hgb: 13.4 g/dL -- Normal range between ( 13.5 and 17.3 ) Platelet Count: 161 K/uL -- Normal range between ( 163 and 369 ) MCH: 32.0 pg -- Normal range between ( 25.6 and 32.2 ) MCHC: 32.9 Gram/dL -- Normal range between ( 32.2 and 36.5 ) MCV: 97.1 fL -- Normal range between ( 79.0 and 94.8 ) Slide Review: No Eos %: 6.4 % -- Normal range between ( 0.0 and 7.0 ) Tarrant #: 0.48 K/uL -- Normal range between ( 0.16 and 1.00 ) Eos #: 0.27 x10(3)/uL -- Normal range between ( 0.00 and 0.80 ) [place]arrant %: 11.4 % -- Normal range between ( 3.0 and 9.0 ) Baso %: 0.7 % -- Normal range between ( 0.0 and 1.5 ) Baso #: 0.03 x10(3)/uL -- Normal range between ( 0.00 and 0.20 ) RDW: 12.5 % -- Normal range between ( 11.7 and 14.9 ) Neut %: 42.8 % -- Normal range between ( 34.0 and 71.0 ) Neut #: 1.80 K/uL -- Normal range between ( 1.56 and 6.13 ) Lymph %: 38.2 % -- Normal range between ( 19.3 and 53.1 ) Lymph #: 1.61 x10(3)/uL -- Normal range between ( 1.00 and 3.90 ) MPV: 9.8 fL -- Normal range between ( 9.4 and 12.4 ) IG#: 0.02 x10(3)/uL -- Normal range between ( 0.00 and 0.05 ) IG%: 0.50 % -- Normal range between ( 0.00 and 0.60 ) General Chemistry 12/05/2020 5:50 AM Creatinine Level: 1.00 mg/dL -- Normal range between ( 0.70 and 1.30 ) Sodium Level: 143 mmol/L -- Normal range between ( 136 and 146 ) Potassium Level: 4.4 mmol/L -- Normal range between ( 3.5 and 5.1 ) Chloride Level: 108 mmol/L -- Normal range between ( 102 and 112 ) Carbon Dioxide Level: 30 mmol/L -- Normal range between ( 21 and 32 ) Anion Gap: 9 -- Normal range between ( 9 and 20 ) Bilirubin Total: 0.2 mg/dL -- Normal range between ( 0.2 and 1.2 ) A/G Ratio: 1.1 -- Normal range between ( 1.1 and 2.5 ) ALT: 39 Units/Liter -- Normal range between ( 16 and 61 ) AST: 30 Units/Liter -- Normal range between ( 5 and 37 ) Globulin: 3.3 Gram/dL -- Normal range between ( 1.5 and 4.5 ) Alk Phos: 83 Units/Liter -- Normal range between ( 27 and 136 ) Ammonia Level: 45.0 uMol/L -- Normal range between ( 11.0 and 32.0 ) Bun/Creatinine: 16.0 -- Normal range between ( 8.0 and 20.0 ) Calcium Level: 8.7 mg/dL -- Normal range between ( 8.4 and 10.1 ) eGFR : >60 mL/min/1.73m2 eGFR NonAfrican: >60 mL/min/1.73m2 Glucose Level: 99 mg/dL -- Normal range between ( 74 and 106 ) Magnesium Level: 2.3 mg/dL -- Normal range between ( 1.5 and 2.4 ) Blood Urea Nitrogen: 16 mg/dL -- Normal range between ( 7 and 22 ) Protein Total: 6.8 Gram/dL -- Normal range between ( 6.4 and 8.2 ) Albumin Level: 3.5 Gram/dL -- Normal range between ( 3.4 and 5.0 ) Coagulation 12/05/2020 5:50 AM INR: 1.1 -- Normal range between ( 0.9 and 1.2 ) PT: 11.1 Second(s) -- Normal range between ( 9.2 and 12.0 ) Therapeutic Drugs 12/05/2020 5:50 AM Valproic Acid Level: 46.0 mcg/mL -- Normal range between ( 50.0 and 100.0 ) Magnetic Resonance Imaging 12/04/2020 1:34 PM MRI Brain WO: MRI Brain WO Patient Name:KUSH MATA I have received and understand this information and was given the opportunity to ask questions. Patient/Bottom Pounder Cement Shoes Name: Patient/Bottom Pounder Cement Shoes Signature: Relationship to Patient: Clinician/Hospital Bottom Pounder Cement Shoes Signature: Date: documented in this encounter Plan of Treatment Not on file documented as of this encounter Visit Diagnoses Not on filedocumented in this encounter Care Teams Helper Metal Hanging Relationship Specialty Start Date End Date Edson Miller MD [address] [place] [address] PCP - General Internal Medicine/Pediatrics 07/21/22 07/11/24 Consuelo Segundo, NURSE ORTHOPAEDIC 209 [facility] [address] [place] [id number] PCP - General Family Medicine 07/12/24 Salomón Frausto PA-C [address] [place] [address] Orthopedist Physician Space Engineer 05/07/22 documented as of this encounter
--- OUTSIDE RECORDS SUMMARY | 2025-03-15 16:02 | XMS_ITS | Encounter Summary ---
Author Organization [facility] ([place], [place], [place], [place]) Address [address] [place] [address] Care Team Providers Care Pump House Technician Name Role Phone Salomón Frausto PA-C Unavailable [phone] Edson Miller MD Primary Care Provider [phone] Consuelo Segundo APRN Primary Care Provider [phone]- [phone] Reason for Referral * Rehabilitation (Elective) - Closed Specialty Diagnoses / Procedures Referred By Estephania duncan Referred To Contact Physical Therapy Diagnoses Presence of right artificial hip joint Salomón Frausto PA-C [address] [place] [address] Phone: tel: fax: Referral ID Status Reason Start Date Expiration Date V isits Requested Visits Authorized [id number] Closed Specialty Services Required 05/07/2022 08/05/2022 8 8 Encounter Details Date Type Department Care Team (Late st Contact Info) Description 05/07/2022 Outside Orders [facility] OP Physical Therapy [address] [place] [address] Salomón Frausto PA-C [address] [place] [address] Presence of right artificial hip joint (Primary Dx) Social History Tobacco Use Types Packs/Day Years Used Date Smoking Tobacco: Never Assessed Sex and Gender Information Value Date Recorded Sex Assigned at Not on file Legal Sex Male 5:16 PM CDT Gender Identity Not on file Sexual Orientation Not on file documented as of this encounter Plan of Treatment Scheduled Referrals Name Type Priority Associated Diagnoses Orde r Schedule AMB REFERRAL TO PHYSICAL THERAPY EVALUATE, TREAT AND PLAN OF CARE Outpatient Referral Routine Presence of right artificial hip joint Expected: 05/07/2022, Expires: 05/07/2023 documented as of this encounter Visit Diagnoses Diagnosis Presence of right artificial hip joint- Primary documented in this encounter Care Teams Pump House Technician Relationship Specialty Start Date End Date Edson Miller MD [address] [place] [address] PCP - General Internal Medicine/Pediatrics 07/21/22 07/11/24 Consuelo Segundo, BIODIESEL PLANT SUPERINTENDENT [address] [address] PCP - General Family Medicine 07/12/24 Salomón Frausto PA-C [address] [place] [address] Orthopedist Physician Yard Brakeman 05/07/22 documented as of this encounter
--- OUTSIDE RECORDS SUMMARY | 2025-03-15 16:02 | XMS_ITS | Encounter Summary ---
Author Organization [facility] ([place], [place], [place], [place]) Address [address] [place] [address] Care Team Providers Care Police Or Patrol Park Officer Name Role Phone Salomón Frausto PA-C Unavailable [phone] Edson Miller MD Primary Care Provider [phone] Consuelo Segundo APRN Primary Care Provider +- [phone] Encounter Details Date Type Department Care Team (Late st Contact Info) Description 12/05/2020 Transcribed Document [facility] [place] Family Medicine [address] [place] [address] ProviderGaurang MD [address] [place] [address] Social History Tobacco Use Types Packs/Day Years Used Date Smoking Tobacco: Never Assessed Sex and Gender Information Value Date Recorded Sex Assigned at Not on file Legal Sex Male 5:16 PM CDT Gender Identity Not on file Sexual Orientation Not on file documented as of this encounter Miscellaneous Notes * Cerner Conversion Note - Historical ProviderMD - 12/05/2020 12:59 PM CDT Final Discharge Planning Entered On: 12/05/2020 13:00 EDT Performed On: 12/05/2020 12:59 EDT by JEANETTE MELENDEZ, RN-Special Education Kindergarten Teacher Final Discharge Planning Discharge Arrangements : Patient Post-Acute Information Patient Name: KUSH MATA Gender: Male : 60 Age: 60 Years No Post-Acute Placement(s) Listed No Post-Acute Service(s) Listed No [place] Referral(s) Listed Transportation Needs : Family/Friend Patient/Family Notified of Plan : Yes Support Person/Pt Rep Notified of Plan : Yes Is Patient Ready for Discharge? : Yes Physician Notified Patient is Ready for Discharge? : Yes Discharge To Care Management : Home/Residential/Snf or Self Care - JEANETTE MELENDEZ, DIVYA-Special Education Kindergarten Teacher - 12/05/2020 12:59 EDT Electronically signed by [facility] Conversion Corn Lab Technician Cerner at 11/26/2022 6:10 PM CDT documented in this encounter Plan of Treatment Not on file documented as of this encounter Visit Diagnoses Not on filedocumented in this encounter Care Teams Police Or Patrol Park Officer Relationship Specialty Start Date End Date Edson Miller MD [address] [place] [address] PCP - General Internal Medicine/Pediatrics 07/21/22 07/11/24 Consuelo Segundo, PRINCIPAL NETWORK ENGINEER 209 [facility] [address] [place] [phone] PCP - General Family Medicine 07/12/24 Salomón Frausto PA-C [address] [place] [address] Orthopedist Physician Manufacturing Scheduler 05/07/22 documented as of this encounter
--- OUTSIDE RECORDS SUMMARY | 2025-03-15 16:02 | XMS_ITS | Encounter Summary ---
Author Organization [employer] ([place], [place], [place], [place]) Address [address] [place] [address] Care Team Providers Care Provider Relations Consultant Name Role Phone Salomón Frausto PA-C Unavailable [phone] Edson Miller MD Primary Care Provider [phone] Consuelo Segundo APRN Primary Care Provider [phone]- [phone] Encounter Details Date Type Department Care Team (Late st Contact Info) Description 12/05/2020 Transcribed Document [facility] [place] [address] [place] [address] ProviderGaurang MD [address] [place] [address] Social History Tobacco Use Types Packs/Day Years Used Date Smoking Tobacco: Never Assessed Sex and Gender Information Value Date Recorded Sex Assigned at Not on file Legal Sex Male 5:16 PM CDT Gender Identity Not on file Sexual Orientation Not on file documented as of this encounter Miscellaneous Notes * Cerner Conversion Note - Historical ProviderMD - 12/05/2020 11:34 AM CDT Patient: KUSH MATA Age: 60 Years Sex: Male : 1960 Subjective Patient states that his headache is much better today and he wants to go home. He states that the severity of his headache yesterday was about a 6- 7 / 10 but today is about a - 09/17 . He did take some Oxycodone last night and this morning. He tells me that at home , he takes Depakote 500 mg in am and 1000 mg at night. Review of Systems Cardiac - denies any chest pain. Objective Vitals & Measurements T: 36.6 ??C TMIN: 36.5 ??C TMAX: 36.7 ??C HR: 58(Monitored) RR: 19 BP: 125/80 SpO2: 95% Physical Exam Well developed male in NAD resting in bed . EOMI Pupils react equally to light. I am unable to see discs because of small pupils. Motor - no drift in either arm. TESTS Valproic Acid level - 46 Ammonia level - 45 AST and ALT - normal Assessment/Plan Kush Mata is a 60-year-old male with a history of hypertension, essential tremor, and bipolar disease, who has been having some headaches since hitting his head on some 2 x 4's seven days ago. A cranial MRI is normal and his headaches are improved today. The differential for his headaches could include one or a combination of the followin. Benign posttraumatic headaches. 2. Concussion. 3. Structural disease of his brain, not seen on his cranial MRI. 4. Vascular malformation. 5. Central nervous system infection. 6. Functional disorder. 7. Side effects of medications. 8. Migraine. 9. Vasculitis. At this time, I do not know the exact etiology of his headaches, but I would say the two most likely cause in this scenario would either be a posttraumatic headache and/or a concussion. At this time, I would recommend the followin. To continue symptomatic treatment. 2. Consideration could be given to a LP and/or a CTA of head and neck to look for any vascular malformation. 3. At discharge, he should follow up with his outpatient neurologist in [place]. 4. I have told him not to drive or operate heavy machinery until released by physician given the narcotics he has been receiving. 5. Will increase his Depakote to his home dose by adding 1000 mg at night. I have told the patient that without doing a LP or CTA of head and neck , I cannot exclude a vascular malformation such as an aneurysm. However, he does not wish to have these tests performed at this time. As he is improving , I am OK with him going home . Medications Inpatient amLODIPine, 5 mg= 1 Tab, Oral, Daily Depakote ER, 1000 mg= 2 Tab, Oral, At Bedtime divalproex sodium, 500 mg= 1 Tab, Oral, Daily Flexeril, 5 mg= 0.5 Tab, Oral, TID, PRN Flomax, 0.4 mg= 1 Cap, Oral, At Bedtime gabapentin, 300 mg= 1 Cap, Oral, QAM gabapentin, 600 mg= 2 Cap, Oral, At Bedtime mesalamine, 1600 mg= 4 Cap, Oral, BID oxyCODONE, 5 mg= 1 Tab, Oral, Q6H, PRN primidone, 250 mg= 1 Tab, Oral, At Bedtime Protonix, 40 mg= 1 Tab, Oral, Daily rosuvastatin, 5 mg= 0.5 Tab, Oral, At Bedtime Tylenol, 650 mg= 2 Tab, Oral, Q6H, PRN Zofran, 4 mg= 2 mL, IV Push, Q4H, PRN Electronically signed by Poonam, [facility] Conversion Headlight Assembler Cerner at 11/26/2022 6:03 PM CDT documented in this encounter Plan of Treatment Not on file documented as of this encounter Visit Diagnoses Not on filedocumented in this encounter Care Teams Provider Relations Consultant Relationship Specialty Start Date End Date Edson Miller MD [address] [place] [address] PCP - General Internal Medicine/Pediatrics 07/21/22 07/11/24 Consuelo Segundo, MOTOR COACH CHAUFFEUR 209 [facility] [address] [place] [phone] PCP - General Family Medicine 07/12/24 Salomón Frausto PA-C [address] [place] [address] Orthopedist Physician Order Packer 05/07/22 documented as of this encounter
--- OUTSIDE RECORDS SUMMARY | 2025-03-15 16:02 | XMS_ITS | Encounter Summary ---
Author Organization [facility] Address [address] [place] [address] Care Team Providers Care Doctor Of Pharmacy Name Role Phone Marisol Hidalgo APRN Primary Care Provider [phone] Asael Bolden MD Unavailable [phone] Anup Ronquillo MD Unavailable [phone] Kenya Antony APRN Primary Care Provider [phone] Consuelo Segundo APRN Primary Care Provider [phone] Encounter Details Date Type Department Care Team (Late st Contact Info) Description 02/06/2021 Orders Only External Location [address] [place] [id number] Provider, External Social History Tobacco Use Types Packs/Day Years Used Date Smoking Tobacco: Former Alcohol Use Standard Drinks/Week Comments No 0 (1 standard drink = 0.6 oz pur e alcohol) Sex and Gender Information Value Date Recorded Sex Assigned at Not on file Legal Sex Male 8:46 PM EDT Gender Identity Not on file Sexual Orientation Not on file documented as of this encounter Plan of Treatment Not on file documented as of this encounter Procedures Procedure Name Priority Date/Time Associated Diagnosis Comments MR OUTSIDE IMAGES 02/06/2021 9:20 AM EDT documented in this encounter Results * MR transfer of outside films (02/06/2021 9:20 AM EDT) Anatomical Region Laterality Modality Magnetic Resonan ce 02/06/2021 9:20 AM EDT us External Provider IMG MRI PROCEDURES Final Resul t documented in this encounter Visit Diagnoses Not on filedocumented in this encounter Care Teams Doctor Of Pharmacy Relationship Specialty Start Date End Date Marisol Hidalgo APRN [address] [place] [address] PCP - General 12/19/20 11/26/21 Kenya Antony APRN [address] [place] [id number] PCP - General 11/27/21 07/10/23 Consuelo Segundo APRN [address] [place] [address] PCP - General 07/11/23 Asael Bolden MD [address] [place] [address] Surgeon Neurosurgery 03/16/21 Anup Ronquillo MD [address] [place] [address] Consulting Physician Neurology 10/19/21 documented as of this encounter
--- OUTSIDE RECORDS SUMMARY | 2025-03-15 16:03 | XMS_ITS | Encounter Summary ---
Author Organization [employer] ([place], [place], [place], [place]) Address [address] [place] [address] Care Team Providers Care Nurse Sane Name Role Phone Salomón Frausto PA-C Unavailable [phone] Edson Miller MD Primary Care Provider [phone] Consuelo Segundo APRN Primary Care Provider [phone]- [phone] Encounter Details Date Type Department Care Team (Late st Contact Info) Description 12/04/2020 Transcribed Document [facility] [place] [address] ProviderGaurang MD [address] [place] [address] Social History Tobacco Use Types Packs/Day Years Used Date Smoking Tobacco: Never Assessed Sex and Gender Information Value Date Recorded Sex Assigned at Not on file Legal Sex Male 5:16 PM CDT Gender Identity Not on file Sexual Orientation Not on file documented as of this encounter Miscellaneous Notes * Cerner Conversion Note - Historical ProviderMD - 12/04/2020 4:15 PM CDT Discharge Instructions Entered On: 12/04/2020 16:16 EDT Performed On: 12/04/2020 16:15 EDT by ALTAF LIANG MD-NEU DC Instructions HWD Driving After Discharge : Do not drive, Other: No driving or operating heavy machinery until released by a physician. ALTAF LIANG MD-NEU - 12/04/2020 16:15 EDT Electronically signed by Poonam, [facility] Conversion Highway Engineer Cerner at 11/26/2022 6:16 PM CDT documented in this encounter Plan of Treatment Not on file documented as of this encounter Visit Diagnoses Not on filedocumented in this encounter Care Teams Nurse Sane Relationship Specialty Start Date End Date Edson Miller MD [address] [place] [address] PCP - General Internal Medicine/Pediatrics 07/21/22 07/11/24 Consuelo Segundo, INSPECTOR PRECISION ASSEMBLY 209 [facility] [address] [place] [address] PCP - General Family Medicine 07/12/24 Salomón Frausto PA-Anisha [address] [place] [address] Orthopedist Physician Chip Tuner 05/07/22 documented as of this encounter
--- OUTSIDE RECORDS SUMMARY | 2025-03-15 16:03 | XMS_ITS | Encounter Summary ---
Author Organization [employer] ([place], [place], [place], [place]) Address [address] [place] [address] Care Team Providers Care Transportation Dispatcher Name Role Phone Salomón Frausto PA-C Unavailable [phone] Edson Miller MD Primary Care Provider [phone] Consuelo Segundo APRN Primary Care Provider [phone]- [phone] Encounter Details Date Type Department Care Team (Late st Contact Info) Description 12/04/2020 Transcribed Document [facility] [place] Family Medicine [address] [place] [address] ProviderGaurang MD [address] [place] [address] Social History Tobacco Use Types Packs/Day Years Used Date Smoking Tobacco: Never Assessed Sex and Gender Information Value Date Recorded Sex Assigned at Not on file Legal Sex Male 5:16 PM CDT Gender Identity Not on file Sexual Orientation Not on file documented as of this encounter Miscellaneous Notes * Cerner Conversion Note - Historical ProviderMD - 12/04/2020 4:38 AM CDT Meds to Bed Enrollment Entered On: 12/04/2020 7:42 EDT Performed On: 12/04/2020 4:38 EDT by ANDRES VILLAR RPh Meds to Bed Enrollment Patient Enrollment Decision: : No/do not enroll in meds to bed program Reason for Declining Meds to Bed Program: : Prefer to use home pharmacy JIAN ANDRESAzael Pa - 12/04/2020 7:42 EDT documented in this encounter Plan of Treatment Not on file documented as of this encounter Visit Diagnoses Not on filedocumented in this encounter Care Teams Transportation Dispatcher Relationship Specialty Start Date End Date Edson Miller MD [address] [place] [address] PCP - General Internal Medicine/Pediatrics 07/21/22 07/11/24 Consuelo Segundo, INSPECTOR CANNED FOOD RECONDITIONING 209 [facility] [address] [place] [address] PCP - General Family Medicine 07/12/24 Salomón Frausto PA-C [address] [place] [address] Orthopedist Physician Whizzer 05/07/22 documented as of this encounter
--- OUTSIDE RECORDS SUMMARY | 2025-03-15 16:03 | XMS_ITS | Encounter Summary ---
Author Organization [email or web address] ([place], [place], [place], [place]) Address [address] [place] [address] Care Team Providers Care Senior Systems Developer Name Role Phone Salomón Frausto PA-C Unavailable [phone] Edson Miller MD Primary Care Provider [phone] Consuelo Segundo APRN Primary Care Provider [phone]- [phone] Encounter Details Date Type Department Care Team (Late st Contact Info) Description 12/04/2020 Transcribed Document [facility] [place] [address] [place] [address] ProviderGaurang MD [address] [place] [address] Social History Tobacco Use Types Packs/Day Years Used Date Smoking Tobacco: Never Assessed Sex and Gender Information Value Date Recorded Sex Assigned at Not on file Legal Sex Male 5:16 PM CDT Gender Identity Not on file Sexual Orientation Not on file documented as of this encounter Miscellaneous Notes * Cerner Conversion Note - Historical ProviderMD - 12/04/2020 8:15 AM CDT Evaluation, Occupational Therapy Entered On: 12/04/2020 15:21 EDT Performed On: 12/04/2020 14:51 EDT by DEMI SUMNER, OTR/L General Information, OT Visit Type, OT : Initial evaluation Patient Orders : Order Date Order Ordering 12/04/2020 08:15 OT Evaluation and Treatment Ordered By: ARMANDO SOTO MD-INT Active Diagnoses : No Qualifying Diagnoses Therapy Diagnosis, OT : Decreased I with ADLs and fxnl mobility secondary to LOC with likely concussion, resulting in fxnl decline. Onset of Problem, OT : 12/04/2020 EDT Admission Date : 12/04/2020 04:37 Co-treated by, OT : Physical Therapist Personal Devices : Personal Devices Glasses Assistive Devices : Assistive Devices No Devices Recorded General Information Comment, OT : 60 yo male who was admitted to [facility] on 12/04 for LOC with likely concussion after hitting head 3x while helping friend put togther playground set. CTH: negative MRI: pending result PMHx: anxiety, arthritis, bipolar, GERD, HTN, and tremor. DEMI SUMNER OTR/Patricia - 12/04/2020 15:09 EDT General Status Patient Received Status : Supine in bed Treatment Start Time : 12/04/2020 14:34 EDT Patient Left Status : Supine in bed, RN/PCT informed, All needs met and within reach RN/PCT Informed Comment : DIVYA Griggs'carlos Treatment End Time : 12/04/2020 14:51 EDT Treatment Time : 17 Minute(s) DEMI SUMNER OTR/Patricia - 12/04/2020 15:09 EDT History and Environment, OT Living Situation, Therapy : Home Patient Lives With : Alone Persons Assisting Patient at Home : Alone Professional Skilled Services : None Persons Providing Information : Patient Home Equipment, Therapy : None Home Setup : One story Stairs : No DEMI SUMNER OTR/Patricia - 12/04/2020 15:09 EDT Prior LOF Bathing, OT : Independent Prior LOF Bed Mobility : Independent Prior LOF Upper Body Dressing, OT : Independent Prior LOF Lower Body Dressing, OT : Independent Prior LOF Toileting : Independent Prior LOF Transfer : Independent Prior LOF Grooming, OT : Independent Prior LOF for IADLs, OT : Independent DEMI SUMNER OTR/Patricia - 12/04/2020 15:09 EDT Upper Extremity Right UE Active ROM : WFL Right UE Strength : WFL Left UE Active ROM : WFL Left UE Strength : WFL Upper Extremity Strength Impaired : No Right UE Strength : WFL Left UE Strength : WFL Upper Extremity Comment : BUE ROM and MMT WFL DEMI SUMNER, OTR/L - 12/04/2020 15:09 EDT Self Care/Home Management, OT Self Feeding Assist Level, OT : Independent, complete Grooming Assist Level, OT : Supervision or set-up Bathing Assist Level, OT : Supervision or set-up Upper Body Dressing Assist Level, OT : Independent, complete Lower Body Dressing Assist Level, OT : Supervision or set-up Toileting Assist Level : Independent, complete Toilet Transfer Assist Level : Supervision or set-up DEMI SUMNER, OTR/L - 12/04/2020 15:09 EDT Mobility Device/Prosthesis/Wt Bearing Weight Bearing Status Maintained : Yes Weight Bearing Status : As tolerated DEMI SUMNER, OTR/L 12/04/2020 15:09 EDT Functional Mobility Mobility Grid Supine to Sit : Supervision/set-up Sit to Stand : Supervision/set-up Stand to Sit : Supervision/set-up Sit to Supine : Supervision/set-up DEMI SUMNER, OTR/L 12/04/2020 15:09 EDT Sit to Stand Device : Belt, gait Stand to Sit Device : Belt, gait DEMI SUMNER, OTR/L 12/04/2020 15:09 EDT Cognition Assessment, OT Orientation : Oriented x 4 Cognition Assessment, OT : Intact Comprehension Assessment, OT : Intact DEMI SUMNER, OTR/L 12/04/2020 15:09 EDT Education OT Occupational Therapy Education Grid Activity of Daily Living Training : Needs further teaching Functional Mobility Training : Needs further teaching Role of Occupational Therapy : Verbalizes understanding DEMI SUMNER, OTR/L 12/04/2020 15:09 EDT Teaching/Learning Assessment Barriers To Learning : None evident Individuals Taught : Patient Readiness to Learn : Cooperative Readiness to Learn : Explanation Learning Style Preferences Patient : None DEMI SUMNER, OTR/L - 12/04/2020 15:09 EDT Indication Assessment, OT Occupational Therapy Indicated : Yes Problem List, OT : Impaired, bed mobility, Impaired, endurance tolerance, Impaired functional mobility, Impaired, standing balance, Impaired, strength, Impaired, transfers Potential Barriers, OT : None evident Rehabilitation Potential, OT : Good DEMI SUMNER, OTR/L - 12/04/2020 15:09 EDT Plan of Care, OT OT Tx Plan/Goals Established w Patient : Yes OT Frequency Rehab : Five days per week OT Duration Rehab : Fourteen days OT Treatments Planned : Activities of daily living, Balance training, Functional mobility training, Safety education, Therapeutic activities, Therapeutic exercises DEMI SUMNER, OTR/L - 12/04/2020 15:09 EDT Vermin Exterminator Goals, OT Grooming LTG Grid Goal #1 Activity : Grooming Cues : No cues Assist : Independent, complete Date to Meet : 12/18/2020 EDT Goal Status : Initial goal Comment : Standing at sink DEMI SUMNER, OTR/L - 12/04/2020 15:09 EDT Dressing, Lower Body LTG Grid Goal #1 Activity : Dressing, Lower Body Cues : No cues Assist : Independent, complete Date to Meet : 12/18/2020 EDT Goal Status : Initial goal DEMI SUMNER, OTR/L - 12/04/2020 15:09 EDT Toilet Transfer LTG Grid Goal #1 Activity : Toilet Transfer, Ambulatory Cues : No cues Assist : Independent, complete Date to Meet : 12/18/2020 EDT DEMI SUMNER, OTR/L - 12/04/2020 15:09 EDT Bed Mobility/ Bed Transfer LTG Grid Goal #1 Activity : Bed Mobility/Bed Transfer Cues : No cues Assist : Independent, complete Date to Meet : 12/18/2020 EDT Goal Status : Initial goal DEMI SUMNER, OTR/L - 12/04/2020 15:09 EDT Treatment Note Subjective Comment : Pt and RN okay'd OT eval at this time Patient's Response to Treatment : Pt tolerated OT eval well Additional Objective Information : Pt supine in bed upon OT arrival. Pt tolerated BUE ROM and MMT. Pt to EOB with supervision. Pt donned shoes with supervision. Pt walked 100ft with Min A via AIR PRESS OPERATOR. Pt returned to room and returned to bed with supervision. Pt left supine in bed with call light/phone within reach. Assessment : Pt would benefit from skilled OT services to improve fxnl status. Plan for Treatment : See POC tab DEMI SUMNER, OTR/L - 12/04/2020 15:09 EDT Pain Assessment Pain Scaled Used : 0-10 Pain scale Pain Score Pre-Intervention : 4 Pain Score During-Intervention : 6 Location : Head DEMI SUMNER, OTR/L - 12/04/2020 15:09 EDT Image 1 - Images currently included in the form version of this document have not been included in the text rendition version of the form. Anticipated Discharge Needs, OT/PT Anticipated Discharge to : Home, with home health, Other: Level 1 Recommend Continued Therapy at Discharge : Yes DEMI SUMNER, OTR/L - 12/04/2020 15:[address] [facility] OT Charges OT Eval Moderate Complexity : 1 DEMI SUMNER, OTR/L - 12/04/2020 15:09 EDT Electronically signed by [facility] Conversion Veterinarian Helper Cerner at 11/26/2022 6:22 PM CDT documented in this encounter Plan of Treatment Not on file documented as of this encounter Visit Diagnoses Not on filedocumented in this encounter Care Teams Senior Systems Developer Relationship Specialty Start Date End Date dEson Miller MD [address] [place] [address] PCP - General Internal Medicine/Pediatrics 07/21/22 07/11/24 Consuelo Segundo, PUBLICATIONS MANAGER 209 [facility] [address] [place] [id number] PCP - General Family Medicine 07/12/24 Salomón Frausto PA-C [address] [place] [address] Orthopedist Physician Edge Runner 05/07/22 documented as of this encounter
--- OUTSIDE RECORDS SUMMARY | 2025-03-15 16:03 | XMS_ITS | Encounter Summary ---
Author Organization [employer] ([place], [place], [place], [place]) Address [address] [place] [address] Care Team Providers Care Legal Examiner Name Role Phone Salomón Frausto PA-C Unavailable [phone] Edson Miller MD Primary Care Provider [phone] Consuelo Segundo APRN Primary Care Provider [phone]- [phone] Encounter Details Date Type Department Care Team (Late st Contact Info) Description 12/04/2020 Transcribed Document [facility] [place] Family Medicine [address] [place] [address] ProviderGaurang MD [address] [place] [address] Social History Tobacco Use Types Packs/Day Years Used Date Smoking Tobacco: Never Assessed Sex and Gender Information Value Date Recorded Sex Assigned at Not on file Legal Sex Male 5:16 PM CDT Gender Identity Not on file Sexual Orientation Not on file documented as of this encounter Miscellaneous Notes * Cerner Conversion Note - Historical ProviderMD - 12/04/2020 10:48 AM CDT Pain Assessment Entered On: 12/05/2020 11:46 EDT Performed On: 12/05/2020 7:05 EDT by Indu Bansal, RN Intervention Information: oxyCODONE Performed by Loki Coffey Non Emp RN on 12/05/2020 06:05:00 EDT oxyCODONE,5mg Oral,Pain (Severe 7-10) Pain Assessment Pain Assessment : Follow-up assessment Pain Improved by Intervention : Yes Indu Bansal RN - 12/05/2020 11:46 EDT documented in this encounter Plan of Treatment Not on file documented as of this encounter Visit Diagnoses Not on filedocumented in this encounter Care Teams Legal Examiner Relationship Specialty Start Date End Date Edson Miller MD [address] [place] [address] PCP - General Internal Medicine/Pediatrics 07/21/22 07/11/24 Consuelo Segundo, COFFEE BREAK ATTENDANT 209 [facility] [address] [place] [address] PCP - General Family Medicine 07/12/24 Salomón Frausto PA-C [address] [place] [address] Orthopedist Physician Oral Therapist 05/07/22 documented as of this encounter
--- OUTSIDE RECORDS SUMMARY | 2025-03-15 16:03 | XMS_ITS | Clinical Summary ---
Author Organization [employer] ([place], [place], [place], [place]) Address [address] [place] [address] Care Team Providers Care Hot Top Liner Helper Name Role Phone Salomón Frausto PA-C Unavailable [phone] Consuelo Segundo APRN Primary Care Provider [phone] Allergies Active Allergy Reactions Criticality Noted Date Comments Metronidazole 07/21/2022 Levofloxacin Other (See Comments) Low 10/22/2015 Roxie 07/21/2022 Prednisone 07/21/2022 Montelukast 07/21/2022 Medications amLODIPine (NORVASC) 5 MG tablet Take 1 tablet (5 mg total) by mouth daily. 07/13/2022 Active divalproex (DEPAKOTE) 500 MG 24 hr tablet Take 1 tablet (500 mg total) by mouth 2 (two) times daily. 07/15/2022 Active esomeprazole (NexIUM) 40 MG capsule Take 1 capsule (40 mg total) by mouth 2 (two) times daily. 06/21/2022 Active gabapentin (NEURONTIN) 600 MG tablet Take 500 mg by mouth 3 (three) times daily. 06/28/2022 Active glycopyrrolate (ROBINUL) 2 MG tablet Take 1 tablet (2 mg total) by mouth 2 (two) times daily. 06/21/2022 Active Jardiance 10 mg tablet Take 1 tablet (10 mg total) by mouth daily. 07/13/2022 Active mesalamine (DELZICOL) 400 mg cdti Take 4 capsules (1,600 mg total) by mouth daily. 06/21/2022 Active metFORMIN (GLUCOPHAGE-XR) 500 MG 24 hr tablet Take 1 tablet (500 mg total) by mouth. 07/28/2021 Active propranoloL (INDERAL) 20 MG tablet Take 1 tablet (20 mg total) by mouth 2 (two) times daily. 07/13/2022 Active tamsulosin (FLOMAX) 0.4 mg Cap 24 hr capsule Take 1 capsule (0.4 mg total) by mouth daily. 06/28/2022 Active semaglutide (OZEMPIC SUBQ) Inject subcutaneousl y. Active Hospital, Clinic, or Other Facility Administered Medication Ordered Dose Route Frequency Start Date End Date Status lidocaine (XYLOCAINE) injection 1%Indications:Chronic left shoulder pain 1 mL OTHER Once 03/07/2023 Active methylPREDNISolone acetate (DEPO-MEDROL) injection 80 mgIndications:Chronic left shoulder pain 80 mg OTHER Once 03/07/2023 Active Active Problems Problem Noted Date Diagnosed Date Smoker 07/12/2024 HTN (hypertension) 07/12/2024 Diabetes mellitus, type 2 07/12/2024 Gastroesophageal reflux disease 07/12/2024 Anxiety 07/12/2024 Depression 07/12/2024 BARRERA (headache) 07/12/2024 Date of surgery: 01/17/2022 S/p Right total hip a rthroplasty 03/28/2023 DDD (degenerative disc disease), lumbar 03/28/20 23 Lumbar radiculopathy 03/28/2023 Family History Medical History Relation Name Comments Cancer Other Deep vein thrombosis Other Diabetes Other Heart disease Other High blood pressure Other Osteoporosis Other Renal tubular acidosis Other Thyroid disease Other Relation Name Status Comments Other Social History Tobacco Use Types Packs/Day Years Used Date Smoking Tobacco: Never Smokeless Tobacco: Never Alcohol Use Standard Drinks/Week Comments Never 0 (1 standard drink = 0.6 oz pur e alcohol) Family and Community Support Answer Harman e Recorded Help with Day to Day Activities Not on file 08/25/2023 Feeling Lonely or Isolated Not on file 08/25 Educational Attainment Answer Date Markel rded Speak language other than Macanese at home Not on file 08/25/2023 Want help with school or training Not on file 08/25/2023 Substance Use Answer Date Recorded Used prescription meds for non-medical reasons N ot on file 08/25/2023 Used illegal drugs past 12 months Not on file 08/25/2023 Sex and Gender Information Value Date Recorded Sex Assigned at Not on file Legal Sex Male 5:16 PM CDT Gender Identity Not on file Sexual Orientation Not on file Last Filed Vital Signs Vital Sign Reading Time Taken Comments Blood Pressure 135/81 07/26/2024 8:27 AM EST Pulse 70 07/26/2024 8:27 AM EST Temperature 36.3 C (97.3 F) 07/26/2024 8:27 AM EST Respiratory Rate 18 07/26/2024 8:27 AM EST Oxygen Saturation 94% 07/26/2024 8:27 AM EST Inhaled Oxygen Concentration - - Weight 86.2 kg (190 lb) 07/04/2024 11:00 AM EST Height 167.6 cm (5' 6 ) 07/04/2024 11:00 AM EST Body Mass Index 30.67 07/04/2024 11:00 AM EST Plan of Treatment Health Maintenance Due Date Last Done Comments Medicare Initial AWV G0438 CT Colonography 1960 Colonoscopy 1960 Colorectal Cancer Screening 1960 Diabetic Kidney Health Evaluation (KED) 1960 FOBT/FIT 1960 Fit-DNA (Cologuard) 1960 Sigmoidoscopy 1960 Diabetic Eye Exam 1970 HIV Screening 1975 Hepatitis C Screening 1978 Pneumococcal 50+ years (1 of 2 - PCV) 1979 Lipid Panel 1995 DTAP/TDAP/TD VACCINES (2 - Td or Tdap) 12/06/2005 Shingles Vaccine (Zoster) (1 of 2) 2010 COVID-19 VACCINE ( - season) 2024 Hemoglobin A1C 07/12/2024 Influenza Vaccine (#1) 2025 Tobacco Cessation Counseling and Screening (12+) 07/2007/20/2024 Respiratory Syncytial Virus (RSV) Adult or (1 - 1-dose 75+ series) 2035 Medical Devices Implanted Type Area Perl Developer Device Identifier Shelf Expiration Date Model / Serial / Lot Iol Uv Clareon +30.0 [id number] - [id number] Implanted:Qty: 1 on 07/12/2024 by King Dey MD at [facility] IMPLANTS Right: Eye REHANA 11/15/2026 [id number] / [id number] / Iol Uv Clareon +30.0 [id number] - [id number] Implanted:Qty: 1 on 07/26/2024 by King Dey MD at [facility] IMPLANTS Left: Eye REHANA 11/03/2027 [id number] / [id number] / Insurance MEDICAID OF [place] [facility] DUAL COMPLETE [facility] ADV FIELD [facility] DUAL COMPLETE Care Teams Hot Top Liner Helper Relationship Specialty Start Date End Date Consuelo Segundo, OPERATIONAL METEOROLOGIST [address] [address] PCP - General Family Medicine 07/12/24 Salomón Frausto PA-C [address] [place] [address] Orthopedist Physician Body Shop Mechanic 05/07/22
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
--- OUTSIDE RECORDS SUMMARY | 2025-03-15 16:03 | XMS_ITS | Encounter Summary ---
Author Organization Healthcare Address [address] [place] [address] Care Team Providers Care Fruit Or Nut Farmworker Name Role Phone Marisol Hidalgo APRN Primary Care Provider [phone] Asael Bolden MD Unavailable [phone] Anup Ronquillo MD Unavailable [phone] Kenya Antony APRN Primary Care Provider [phone] Consuelo Segundo APRN Primary Care Provider [phone] Encounter Details Date Type Department Care Team (Late st Contact Info) Description 01/27/2018 Orders Only External Location [address] [place] [address] Provider, External Social History Tobacco Use Types [...] Date/Time Associated Diagnosis Comments MR OUTSIDE IMAGES 01/27/2018 2:35 PM EDT documented in this encounter Results * MR transfer of outside films (01/27/2018 2:35 PM EDT) Anatomical Region Laterality Modality Magnetic Resonan ce 01/27/2018 2:35 PM EDT us External Provider IMG MRI PROCEDURES Final Resul t documented in this encounter Visit Diagnoses Not on filedocumented in this encounter Care Teams Fruit Or Nut Farmworker Relationship Specialty Start Date End Date Marisol Hidalgo APRN [address] [place] [address] PCP - General 12/19/20 11/26/21 Kenya Antony APRN [address] [place] [address] PCP - General 11/27/21 07/10/23 Consuelo Segundo APRN [address] [place] [address] PCP - General 07/11/23 Asael Bolden MD [address] [place] [address] Surgeon Neurosurgery 03/16/21 Anup Ronquillo MD [address] [place] [address] Consulting Physician Neurology 10/19/21 documented as of this encounter
--- OUTSIDE RECORDS SUMMARY | 2025-03-15 16:03 | XMS_ITS | Encounter Summary ---
Author Organization [employer] ([place], [place], [place], [place]) Address [address] [place] [address] Care Team Providers Care Bell Hole Digger Name Role Phone Salomón Frausto PA-C Unavailable [phone] Edson Miller MD Primary Care Provider [phone] Consuelo Segundo APRN Primary Care Provider [phone] Encounter Details Date Type Department Care Team (Late st Contact Info) Description 12/04/2020 Transcribed Document [facility] [place] Family Medicine [address] [place] [address] ProviderGaurang MD [address] [place] [address] Social History Tobacco Use Types [...] ProviderMD - 12/04/2020 8:15 AM CDT Evaluation, Physical Therapy Entered On: 12/04/2020 16:16 EDT Performed On: 12/04/2020 14:32 EDT by RCIK DOSHI, TALON General Information, PT Visit Type, PT : Initial evaluation Patient Orders : Order Date Order Ordering 12/04/2020 08:15 PT Evaluation and Treatment Ordered By: ARMANDO SOTO MD-INT 12/04/2020 15:56 PT Additional Treatment Ordered By: RICK DOSHI PT Active Diagnoses : No Qualifying Diagnoses Therapy Diagnosis, PT : Debililty Onset of Problem, PT : 12/04/2020 EDT Admission Date : 12/04/2020 04:37 Co-treated by, PT : Occupational Therapist Personal Devices : Personal Devices Glasses Assistive Devices : Assistive Devices No Devices Recorded General Information Comment, PT : Admit Dx: fall with multiple head trauma/concussion, vomitting, headache MRI(-) GCS 15 (12/04) Hx: bipolar, HTN RICK DOSHI, PT - 12/04/2020 15:58 EDT General Status Patient Received Status : Supine in bed Treatment Start Time : 12/04/2020 14:32 EDT Patient Left Status : Supine in bed, All needs met and within reach Treatment End Time : 12/04/2020 14:55 EDT Treatment Time : 23 Minute(s) RICK DOSHI, PT - 12/04/2020 15:58 EDT History and Environment Living Situation, Therapy : Home Patient Lives With : Alone Persons Assisting Patient at Home : Alone Professional Skilled Services : None Persons Providing Information : Patient Home Equipment Therapy, PT : None Home Setup : One story Stairs : No RICK DOSHI, PT - 12/04/2020 15:58 EDT Prior Level of Function PT GRID Prior LOF Ambulation, Household : Independent Prior LOF Ambulation, Community : Independent Prior LOF Bed Mobility : Independent Prior LOF Toileting : Independent Prior LOF Transfer : Independent RICK DOSHI, PT - 12/04/2020 15:58 EDT Intervention Summary Heart Rate/Pulse Pre-intervention : 62 bpm BP Systolic Pre-intervention : 132 mmHg BP Diastolic Pre-intervention : 75 mmHg O2 Pre-Intervention : 0 SpO2 Pre-Intervention : 96 % RICK DOSHI, PT - 12/04/2020 15:58 EDT Lower Extremity RLE Active ROM : Impaired Right LE Strength : Impaired LLE Active ROM : WFL Left LE Strength : WFL RICK DOSHI, PT - 12/04/2020 15:58 EDT Right Lower Extremity MMT Hip Flexion (0-125) : 2/poor Knee Flexion (0-140) : 2/poor Knee Extension (0-0) : 2/poor Ankle Dorsiflexion (0-20) : 5/normal Ankle Plantarflexion (0-45) : 5/normal RICK DOSHI, PT - 12/04/2020 15:58 EDT Left Lower Extremity MMT Hip Flexion (0-125) : 4/good Knee Flexion (0-140) : 5/normal Knee Extension (0-0) : 5/normal Ankle Dorsiflexion (0-20) : 5/normal Ankle Plantarflexion (0-45) : 5/normal RICK DOSHI, PT - 12/04/2020 15:58 EDT Functional Mobility Mobility Grid Supine to Sit : Supervision/set-up Sit to Stand : Supervision/set-up Stand to Sit : Supervision/set-up Sit to Supine : Supervision/set-up RICK DOSHI, PT - 12/04/2020 15:58 EDT Sit to Stand Device : None, Belt, gait Stand to Sit Device : None, Belt, gait RICK DOSHI, PT - 12/04/2020 15:58 EDT Gait Training/Assessment, PT Gait Assistance Level : Assist, minimal Walking Distance : ~150ft with LINUX ADMINISTRATOR with noted 2x LOB with turns but stepping strategy for corrective balances Ambulatory Devices : None, Gait belt RICK DOSHI, PT - 12/04/2020 15:58 EDT Cognition Assessment, PT Orientation : Oriented x 4 Safety/Judgment Comment : occasional pauses Follows Basic Command Assessment : c/o double vision on occasion Attention Assessment : Present RICK DOSHI, PT - 12/04/2020 15:58 EDT Edu Topics Physical Therapy Education Grid Gait Training : Verbalizes understanding, Returns demonstration, Needs reinforcement Transfer Training : Verbalizes understanding, Returns demonstration, Needs reinforcement RICK DOSHI, PT - 12/04/2020 15:58 EDT Indication Assesessment, PT Physical Therapy Indicated : Yes PT Problem List : Impaired, endurance tolerance, Impaired, gait RICK DOSHI, PT - 12/04/2020 15:58 EDT Plan of Care, PT PT Tx Plan/Goals Established w Patient : Yes PT Frequency Rehab : Five days per week PT Duration Rehab : Fourteen days PT Treatments Planned : Balance training, Gait training RICK DOSHI, PT - 12/04/2020 15:58 EDT [facility] Goals Mobility/Bed Mobility LTG PT Grid Goal #1 Goal #2 Activity : Supine to sit Sit to stand Assist : Independent, complete Independent, complete Date to Meet : 12/18/2020 EDT 12/18/2020 EDT Goal Status : Intial Goal Intial Goal DOSHIRICK, PT - 12/04/2020 15:58 EDT DOSHI, RICK, PT - 12/04/2020 15:58 EDT Ambulation LTG Grid Goal #1 Device : None Distance : 300ft without LOB in < 2min Assist : Independent, complete Date to Meet : 12/18/2020 EDT Goal Status : Intial Goal DOSHI RICK, PT - 12/04/2020 15:58 EDT Treatment Note Subjective Comment : pt agreed to PTx eval Patient's Response to Treatment : Stable but c/o occasional diplopia and worsening BARRERA with positional change in upright posture Additional Objective Information : pt performed bed mobility and OOB transfer SBA but requiring LINUX ADMINISTRATOR for safety ambulating ~150ft for safety; noted difficulty with RLE hip flexion but able to be brought into knee/hip flexion with PROM Assessment : pt with poor RLE coordination at this time with command following but able to ambulate 150ft with LINUX ADMINISTRATOR; however, noted on occasional LOB with turn with stepping strategy for balance recovery Plan for Treatment : cont PTx POC DOSHIRICK, PT - 12/04/2020 15:58 EDT Pain Assessment Pain Scaled Used : 0-10 Pain scale Location : Head Pain Intervention, Drug : Medicated DOSHIRICK, PT - 12/04/2020 15:58 EDT Image 1 - Images currently included in the form version of this document have not been included in the text rendition version of the form. Anticipated Discharge Needs, OT/PT Anticipated Discharge to : Other: pt may require f/u with neurologist upon disch due to c/o cont on occasion diplopia and BARRERA Recommend Continued Therapy at Discharge : No DOSHI, RICK, PT - 12/04/2020 15:58 EDT [place] PT Charges PT Eval Moderate Complexity : 1 DOSHIRICK, PT - 12/04/2020 15:58 EDT documented in this encounter Plan of Treatment Not on file documented as of this encounter Visit Diagnoses Not on filedocumented in this encounter Care Teams Bell Hole Digger Relationship Specialty Start Date End Date Edson Miller MD [address] [place] [address] PCP - General Internal Medicine/Pediatrics 07/21/22 07/11/24 Consuelo Segundo, GINNER [address] [facility] [address] [place] [address] PCP - General Family Medicine 07/12/24 Salomón Frausto PA-C [address] [place] [address] Orthopedist Physician Utility Helicopter Repairer 05/07/22 documented as of this encounter
--- OUTSIDE RECORDS SUMMARY | 2025-03-15 16:03 | XMS_ITS | Encounter Summary ---
Author Organization Healthcare Address [address] [place] [address] Care Team Providers Care Carton Forming Machine Helper Name Role Phone Asael Bolden MD Unavailable [phone] Anup Ronquillo MD Unavailable [phone] Kenya Antony APRN Primary Care Provider [phone] Consuelo Segundo APRN Primary Care Provider + [phone] Encounter Details Date Type Department Care Team (Late st Contact Info) Description 04/06/2023 Orders Only External Location [address] [place] [address] Provider, External Social History Tobacco Use Types Packs/Day Years Used Date Smoking Tobacco: Never Smokeless Tobacco: Former Chew Quit: 1979 Alcohol Use Standard Drinks/Week Comments No 0 [...] Date/Time Associated Diagnosis Comments MR OUTSIDE IMAGES 04/06/2023 12:00 PM EDT documented in this encounter Results * MR transfer of outside films (04/06/2023 12:00 PM EDT) Anatomical Region Laterality Modality Magnetic Resonan ce 04/06/2023 12:0 0 PM EDT us External Provider IMG MRI PROCEDURES Final Resul t documented in this encounter Visit Diagnoses Not on filedocumented in this encounter Additional Health Concerns Assessment Noted Time A fall risk assessment has been complete d for the patient 12/07/2021 12:52 PM EDT documented as of this encounter Care Teams Carton Forming Machine Helper Relationship Specialty Start Date End Date Kenya Antony APRN [address] [place] [address] PCP - General 11/27/21 07/10/23 Consuelo Segundo APRN [address] [place], [place] [id number] PCP - General 07/11/23 Asael Bolden MD [address] [place] [address] Surgeon Neurosurgery 03/16/21 Anup Ronquillo MD [address] [place] [id number] Consulting Physician Neurology 10/19/21 documented as of this encounter
--- OUTSIDE RECORDS SUMMARY | 2025-03-15 16:03 | XMS_ITS | Encounter Summary ---
Author Organization [facility] ([place], [place], [place], [place]) Address [address] [place] [address] Care Team Providers Care Paralegals Name Role Phone Salomón Frausto PA-C Unavailable [phone] Edson Miller MD Primary Care Provider [phone] Consuelo Segundo APRN Primary Care Provider [phone]- [phone] Encounter Details Date Type Department Care Team (Late st Contact Info) Description 12/04/2020 Transcribed Document [facility] [place] [address] [place] [address] ProviderGaurang MD [address] [place] [address] Social History Tobacco Use Types Packs/Day Years Used Date Smoking Tobacco: Never Assessed Sex and Gender Information Value Date Recorded Sex Assigned at Not on file Legal Sex Male 5:16 PM CDT Gender Identity Not on file Sexual Orientation Not on file documented as of this encounter Miscellaneous Notes * Cerner Conversion Note - Gaurang ProviderMD - 12/04/2020 6:15 AM CDT Consult Phone Call Documentation Entered On: 12/04/2020 9:39 EDT Performed On: 12/04/2020 6:15 EDT by Cierra Martines Phone Call for Consults Consult Phone Call/Page Attempt : First call Consult Reason : recent head injury vomiting Physician Requesting Consult : ARMANDO SOTO MD-INT Physician Requested for Consult : ALTAF LIANG MD-SUDARSHAN Date and Time Call Returned : 12/04/2020 9:39 EDT Consult, Additional Information : left detailed Cierra Benites - 12/04/2020 9:38 EDT Electronically signed by [facility], [facility] Conversion Premium Auditor Cerner at 11/26/2022 6:24 PM CDT documented in this encounter Plan of Treatment Not on file documented as of this encounter Visit Diagnoses Not on filedocumented in this encounter Care Teams Paralegals Relationship Specialty Start Date End Date Edson Miller MD [address] [place] [address] PCP - General Internal Medicine/Pediatrics 07/21/22 07/11/24 Consuelo Segundo, MACHINE FEEDER [address] [address] PCP - General Family Medicine 07/12/24 Salomón Frausto PA-Anisha [address] [place] [address] Orthopedist Physician Laboratory Courier 05/07/22 documented as of this encounter
--- OUTSIDE RECORDS SUMMARY | 2025-03-15 16:03 | XMS_ITS | Clinical Summary ---
Author Organization [facility] Address [address] [place] [address] Care Team Providers Care Mother Repairer Name Role Phone Asael Bolden MD Unavailable [phone] Anup Ronquillo MD Unavailable [phone] Consuelo Segundo APRN Primary Care Provider + [phone] Allergies Active Allergy Reactions Criticality Noted Date Comments Atorvastatin Unknown - Patient st ates they do not know rxn details Low 03/30/2019 Gabapentin Unknown - Patient st ates they do not know rxn details Low 10/22/2015 Latex Unknown - Patient st ates they do not know rxn details Low 10/22/2015 Levofloxacin Unknown - Patient st ates they do not know rxn details Low 10/22/2015 University Unknown - Patient st ates they do not know rxn details Low 03/30/2019 Metronidazole Unknown - Patient st ates they do not know rxn details Low 10/22/2015 Mometasone Unknown - Patient st ates they do not know rxn details Low 10/22/2015 Montelukast Unknown - Patient st ates they do not know rxn details Low 10/22/2015 Prednisolone Unknown - Patient st ates they do not know rxn details Low 10/22/2015 Topiramate Unknown - Patient st ates they do not know rxn details Low 03/30/2019 Medications amLODIPine (Norvasc) 5 MG tablet Take 1 tablet (5 mg) by mouth 1 (one) time each day. 1 Active divalproex (Depakote ER) 500 MG 24 hr tablet TAKE ONE (1) TABLET BY MOUTH EVERY MORNING AND TWO (2) TABLETS AT BEDTIME 1 Active esomeprazole (NexIUM) [address] capsule Take by mouth 2 (two) times a day. 1 Active glycopyrrolate (Robinul) 2 MG tablet Take 1 tablet (2 mg) by mouth 2 (two) times a day. 1 Active mesalamine (Delzicol) [address] capsule ONLY 4 caps Daily 1 Active ondansetron (Zofran) 4 MG tablet TAKE 1 TABLET BY MOUTH 4 TIMES DAILY NEEDED FOR NAUSEA AND VOMITING 1 Active primidone (Mysoline) 250 MG tablet Take 250 mg by mouth 1 (one) time each day. 1 Active promethazine (Phenergan) 25 MG tablet TAKE 1 TABLET EVERY 6-8 HOURS NEEDED. 1 Active tamsulosin (Flomax) 0.4 MG 24 hr capsule Take 0.4 mg by mouth 1 (one) time each day. 1 Active SUMAtriptan (Imitrex) 100 MG tablet TAKE 1 TABLET AT ONSET OF MIGRAINE HEADACHE. MAY REPEAT IN 2 HOURS IF NEEDED. DO NOT EXCEED 2 TABLETS IN 24 HOURS 1 Active gabapentin (Neurontin) 400 MG capsule TAKE 1 CAPSULE BY MOUTH 3 TIMES A DAY FOR 30 DAYS. 1 Active meloxicam (Mobic) 15 MG tablet Take 1 tablet (15 mg) by mouth 1 (one) time each day. 1 Active metFORMIN XR (Glucophage-XR) 500 MG 24 hr tablet Take 500 mg by mouth 2 (two) times a day. 1 Active cholecalciferol (Vitamin D-3) 50 MCG (1999) capsule TAKE 1 CAPSULE BY MOUTH ONCE DAILY 2 Active diazePAM (Valium) 10 MG tablet TAKE 1 TABLET BY MOUTH 1 TIME FOR 1 DOSE. TAKE 1 HOUR BEFORE PROCEDURE. DO NOT DRIVE; MUST HAVE QUILL COLLECTOR PRESENT FOR PROCEDURE 2 Active metoprolol tartrate (Lopressor) 25 MG tablet TAKE ONE (1) TABLET BY MOUTH TWICE A DAY 2 Active propranolol LA (Inderal LA) 60 MG 24 hr capsule Take 1 capsule (60 mg) by mouth 1 (one) time each day. 2 Active Blood Glucose Monitoring Suppl (Accu-Chek Guide Me) w/Device kit 2 Active Jardiance 10 MG Take 1 tablet (10 mg) by mouth 1 (one) time each day. 2 Active Accu-Chek Guide test strip USE TO TEST ONCE DAILY. 2 Active Accu-Chek Softclix Lancets lancets USE DIRECTED ONCE DIALY. 2 Active alfuzosin (Uroxatral) 10 MG 24 hr tablet Take 1 tablet (10 mg) by mouth 1 (one) time each day. 3 Active gabapentin (Neurontin) 600 MG tablet Take 1 tablet (600 mg) by mouth 3 (three) times a day. 3 Active finasteride (Proscar) 5 MG tablet Take 1 tablet (5 mg) by mouth 1 (one) time each day. 3 Active Active Problems Problem Noted Date Diagnosed Date Lumbar radiculopathy 10/21/2021 Groin pain 03/30/2019 Hip pain 03/30/2019 Encounter for long-term (current) use of NSAIDs 05/12/2018 Fibromyalgia syndrome 05/03/2018 Positive JOSEFINA (antinuclear antibody) 05/03/2018 DDD (degenerative disc disease), lumbar 03/09/20 18 Low back pain 03/09/2018 Chronic GERD 10/22/2015 Immunizations Immunization Administration Dates Next Due TD (adult), 2 Lf tetanus tox oid, preservative free, adsorbed 12/07/1995 Td (adult), unspecified 04/22/2015 Family History Medical History Relation Name Comments Heart failure Father Breast cancer Mother Cirrhosis Sister Relation Name Status Comments Father Mother Sister Social History Tobacco Use Types Packs/Day Years Used Date Smoking Tobacco: Never Smokeless Tobacco: Former Chew Quit: 1979 Tobacco Cessation:Counseling Given: Not Answered Alcohol Use Standard Drinks/Week Comments No 0 (1 standard drink = 0.6 oz pur e alcohol) Sex and Gender Information Value Date Recorded Sex Assigned at Not on file Legal Sex Male 8:46 PM EDT Gender Identity Not on file Sexual Orientation Not on file Last Filed Vital Signs Vital Sign Reading Time Taken Comments Blood Pressure 132/80 07/11/2023 12:00 PM EST Pulse 59 10/19/2021 2:23 PM EDT Temperature 36.4 C (97.5 F) 12/03/2021 1:33 PM EDT Respiratory Rate 18 09/02/2021 10:14 AM EST Oxygen Saturation 95% 10/19/2021 2:23 PM EDT Inhaled Oxygen Concentration - - Weight 96.2 kg (212 lb) 07/11/2023 12:00 PM EST Height 167.6 cm (5' 6 ) 07/11/2023 12:00 PM EST Body Mass Index 34.22 07/11/2023 12:00 PM EST Plan of Treatment Health Maintenance Due Date Last Done Comments [facility]-Depression Screening 1960 [facility]-HIV Screening 1960 [facility]-Hepatitis C Screening 1960 [facility]-Medicare Annual Wellness (AWV) 1960 [facility]-Infant/Child/Adol SDOH Screenings 1960 [facility]- SDOH Screenings 1978 [facility]-Adult SDOH Screenings 1978 CT Colonography 2005 Colonoscopy 2005 FIT-DNA 2005 FIT 2005 FOBT 2005 Sigmoidoscopy 2005 [facility]-Colorectal Cancer Screening 2005 [facility]-Pneumococcal Vaccine: 50 + Years (1 of 1 - PCV) 2010 [facility]-Zoster Vaccines (1 of 2) 2010 [id number] Vaccine (1 - season) 2024 [facility]-Influenza Vaccine (#1) 2025 [facility]-DTaP,Tdap,and Td Vaccine s (2 - Td or Tdap) 03/13/2034 03/13/2024, 04/22/2015, 12/07/1995 [facility]-RSV Vaccine: 60+ Years o r (1 - 1-dose 75+ series) 2035 [facility]-Obesity Intervention Completed 07/11/2023 HPV Vaccines Aged Out No longer eligi ble based on patient's age to complete this topic [facility]-HIB Vaccines Aged Out No longer e ligible based on patient's age to complete this topic [facility]-Hepatitis A Vaccines Aged Out No longer eligible based on patient's age to complete this topic [facility]-IPV Vaccines Aged Out No longer e ligible based on patient's age to complete this topic [facility]-Rotavirus Vaccines Aged Out No lo nger eligible based on patient's age to complete this topic Insurance MEDICAID-[place] UHC MEDICARE Care Teams Mother Repairer Relationship Specialty Start Date End Date Consuelo Segundo APRN [address] [place] [address] PCP - General 07/11/23 Asael Bolden MD [address] [place] [address] Surgeon Neurosurgery 03/16/21 Anup Ronquillo MD [address] [place] [address] Consulting Physician Neurology 10/19/21
--- OUTSIDE RECORDS SUMMARY | 2025-03-15 16:03 | XMS_ITS | Encounter Summary ---
Author Organization [employer] ([place], [place], [place], [place]) Address [address] [place] [address] Care Team Providers Care Utilization Management Nurse Name Role Phone Salomón Frausto PA-C Unavailable [phone] Edson Miller MD Primary Care Provider [phone] Consuelo Segundo APRN Primary Care Provider [phone]- [phone] Encounter Details Date Type Department Care Team (Late st Contact Info) Description 12/04/2020 Transcribed Document [facility] [place] [address] [place] [address] ProviderGaurang MD [address] [place] [address] Social History Tobacco Use Types Packs/Day Years Used Date Smoking Tobacco: Never Assessed Sex and Gender Information Value Date Recorded Sex Assigned at Not on file Legal Sex Male 5:16 PM CDT Gender Identity Not on file Sexual Orientation Not on file documented as of this encounter Miscellaneous Notes * Cerner Conversion Note - Historical ProviderMD - 12/04/2020 8:38 AM CDT Nutrition Assessment Entered On: 12/04/2020 14:31 EDT Performed On: 12/04/2020 14:25 EDT by Danielle Preez Dietitian Nutrition Assessment Nutrition Assessment Reason : Consult Current Nutrition Regimen Comment : Danielle Perez Dietitian - 12/04/2020 14:25 EDT Nutrition Recommendations Dietitian Recommendations : 12/04: MD consult received. Pt is a 60 y/o M admitted 12/04 with emesis and unsteadiness following head trauma. MRI (-). Pt is currently on Reg diet- intakes establishing. GI and SKin WNL. Labs unavailable at this time. Meds reveiwed. Admit wt is 101.3 kg (BMI 36). No nutrition dx at this time. Will rescreen in 3-5 days to assess intakes Danielle Perez, Dietitian - 12/04/2020 14:32 EDT Electronically signed by [facility], [facility] Conversion Early Childhood Associate Teacher Cerner at 11/26/2022 6:02 PM CDT documented in this encounter Plan of Treatment Not on file documented as of this encounter Visit Diagnoses Not on filedocumented in this encounter Care Teams Utilization Management Nurse Relationship Specialty Start Date End Date Edson Miller MD [address] [place] [address] PCP - General Internal Medicine/Pediatrics 07/21/22 07/11/24 Consuelo Segundo, LEADER ASSEMBLER [address] [facility] [address] [place] [phone] PCP - General Family Medicine 07/12/24 Salomón Frausto PA-C [address] [place] [address] Orthopedist Physician Records Analyst 05/07/22 documented as of this encounter
--- OUTSIDE RECORDS SUMMARY | 2025-03-15 16:03 | XMS_ITS | Encounter Summary ---
Author Organization [employer] ([place], [place], [place], [place]) Address [address] [place] [address] Care Team Providers Care Catalogue Maker Name Role Phone Salomón Frausto PA-C Unavailable [phone] Edson Miller MD Primary Care Provider [phone] Consuelo Segundo APRN Primary Care Provider +- [phone] Encounter Details Date Type Department Care Team (Late st Contact Info) Description 12/04/2020 Transcribed Document [facility] [place] [address] [place] [address] ProviderGaurang MD [address] [place] [address] Social History Tobacco Use Types Packs/Day Years Used Date Smoking Tobacco: Never Assessed Sex and Gender Information Value Date Recorded Sex Assigned at Not on file Legal Sex Male 5:16 PM CDT Gender Identity Not on file Sexual Orientation Not on file documented as of this encounter Miscellaneous Notes * Cerner Conversion Note - Historical ProviderMD - 12/04/2020 4:36 AM CDT Admission History, Adult Entered On: 12/04/2020 5:13 EDT Performed On: 12/04/2020 4:36 EDT by Loki Coffey Non Emp RN Advance Directive Patient has Advance Directive *Q : No, patient refuses Advance Directive information Loki Coffey Non Emp RN - 12/04/2020 4:44 EDT Anesthesia/Transfusion History Family History of Anesthesia Reaction : No prior transfusion(s) Blood Transfusion Acceptable to Patient : Yes Transfusion History : Prior anesthesia without reaction Family History of Anesthesia Reaction : None Loki Coffey Non Emp RN - 12/04/2020 4:44 EDT Functional Assessment Living Situation : Home Current Home Treatments : None Loki Coffey Non Emp RN - 12/04/2020 4:44 EDT General Info Want Family/Rep/Phys Notified of Admit : No Emergency Contact #1 : AMY MATA Emergency Contact #1 Phone Number : [phone] Emergency Contact #1 Relationship : BROTHER Emergency Contact #2 : TONJA YEPEZ Emergency Contact #2 Phone Number : [phone] Emergency Contact #2 Relationship : SISTER Primary Language : Guinean Communication Barrier : None Bridge Instructor Needed : No Loki Coffey Non Emp RN - 12/04/2020 4:44 EDT Fall Risk Scales ABCs Fall Injury Risk Identification : None BUENROSTRO Hx Falls Immediate/Within 3 Months : Yes [place] Secondary Diagnosis : Yes BUENROSTRO Use of Ambulatory Aid : None BU[place]O IV Therapy or IV Access : Yes [place] Gait/Transferring : Weak [place] Mental Status : Oriented to own ability [place] Fall Risk Score : 70 BU[place]RO[place]O Fall Scale Risk Level : 46 or > High Risk [place] Fall Interventions : Adequate lighting, Bed in low position, Call device within reach, Fall prevention handout/education per facility policy, Hourly comfort/safety rounds, Non-slip footwear, Personal items within reach, Reinforced to call for assistance before getting out of bed, Room free of clutter/spills, Upper side-rails up, Wheels locked, Wires/Cords secured Loki Coffey Non Emp RN - 12/04/2020 4:44 EDT Health Histories Smoking Status : Former smoker, quit more than 30 days ago Smokeless Tobacco Status : Former smokeless tobacco user, quit more than 30 days ago Loki Coffey Non Emp RN - 12/04/2020 4:44 EDT Social History (As Of: 12/04/2020 05:13:10 EDT) Height and Weight, Clinical Dosing Height Source : Stated Height Entry Format : [place] Height, Feet : 5 ft(Converted to: 152 cm, 60 Inch) Height, Inches : 6 Inch(Converted to: 0 ft 6 Inch, 15.24 cm) Clinical Height : 167.64 cm Weight Source : Bed scale Weight Entry Format : Metric, kilograms Weight, Kilograms : 101.3 kg(Converted to: 223 lb 5 oz) Clinical Dosing Weight : 101.3 kg Body Surface Area (BSA) : 2.1 m2 Body Mass Index : 36 kg/m2 (HI) [place] Body Weight : 63 kg Loki Coffey Non Emp RN - 12/04/2020 4:44 EDT Infectious Disease History Has the patient ever been tested for COVID-19? : Yes, Patient stated results Positive Date of COVID-19 test known? : Yes Date of COVID-19 Test : 05/08/2020 EDT Does patient have symptoms of COVID-19? : No COVID19 Screening : No Experiencing Infectious Disease Symptoms : No symptoms Physical contact outside [place] in the last 30 days : No Infectious Disease History : None Tuberculosis Symptoms : None Loki Coffey Non Emp RN - 12/04/2020 4:44 EDT Influenza Vaccine Asmt, Adult Previous Vaccines from Immunization Schedule : No qualifying data available. Influenza Immunization, Current Season : No Inactivated Flu Vaccine Contraindications : No contraindications to inactivated influenza vaccine Transplant Workup/Recent Transplant : No Order for Influenza Vaccine : Declined Vaccination Loki Coffey Non Emp RN - 12/04/2020 4:44 EDT Pneumococcal Vaccine Previous Vaccines from Immunization Schedule : No qualifying data available. Pneumonia Immunization Received : No Pneumococcal Risk Assessment < Age 65 : None Loki Coffey Non Emp RN - 12/04/2020 4:44 EDT Order Details Order Detail : N/A IV Order Detail : 1 Oxygen Order Detail : 0 Nurse Collect Order Detail : 0 Lift/Transfer : Minimal Central Line Order Detail : No Room Service : Appropriate Arterial Line : No Patient Needs Meds Crushed/Liquid : No Loki Coffey Non Emp RN - 12/04/2020 4:44 EDT Nutrition History Eating Poorly Due to Decreased Appetite : No Unplanned Weight Loss in Past 3-6 Months : No Malnutrition Screening Tool Total(mal) : 0 Malnutrition Screening Tool Risk Level : Patient not at risk Loki Coffey Non Emp RN - 12/04/2020 4:44 EDT [place] Suicide Severity Rating Scale (C-SSRS) CSSRS Past Month Wish to be : No CSSRS Past Month Suicidal Thoughts : No CSSRS Lifetime Suicide Behavior : No Suicide Severity Rating Score : 0 Suicide Severity Rating : No Additional Care Required at this time Loki CoffeyRachna RN - 12/04/2020 4:44 EDT Psychosocial History Currently in Unsafe Situation : No Loki CoffeyRachna RN - 12/04/2020 4:44 EDT Sleep Apnea Risk Assmt Hx of Obstructive Sleep Apnea Diagnosis : No Snore Loudly : Yes Tired, Fatigued, or Sleepy During Day : Yes Observed Stopping Breathing During Sleep : No Have/Are Being Treated for Hypertension : Yes BMI Greater Than 35 kg/m2 : Yes Age over 50 Years Old : Yes Neck Circumference Greater Than 40 cm : No Gender Male : Yes STOP-BANG Sleep Apnea Risk Level Score : 6 Loki CoffeyRachna RN - 12/04/2020 4:44 EDT Valuables and Belongings Valuables and Belongings : Clothing, Personal devices, Personal items Clothing : Common streetwear Clothing Disposition : With patient Personal Device Disposition : With patient Personal Devices : Glasses Personal Items : Fitzgerald, Cell phone, Credit cards, Wallet Personal Items Disposition : With patient Loki CoffeyRachna RN - 12/04/2020 4:44 EDT documented in this encounter Plan of Treatment Not on file documented as of this encounter Visit Diagnoses Not on filedocumented in this encounter Care Teams Catalogue Maker Relationship Specialty Start Date End Date Edson Miller MD [address] [place] [address] PCP - General Internal Medicine/Pediatrics 07/21/22 07/11/24 Consuelo Segundo, BELLE [address] [facility] [address] [place] [phone] PCP - General Family Medicine 07/12/24 Salomón Frausto PA-C [address] [place] [address] Orthopedist Physician Strategic Sourcing Specialist 05/07/22 documented as of this encounter
--- OUTSIDE RECORDS SUMMARY | 2025-03-15 16:03 | XMS_ITS | Encounter Summary ---
Author Organization Healthcare Address [address] [place] [address] Care Team Providers Care Systems Trainer Name Role Phone Marisol Hidalgo APRN Primary Care Provider [phone] Asael Bolden MD Unavailable [phone] Anup Ronquillo MD Unavailable [phone] Kenya Antony APRN Primary Care Provider [phone] Consuelo Segundo APRN Primary Care Provider + [phone] Encounter Details Date Type Department Care Team (Late st Contact Info) Description 01/23/2021 Orders Only External Location [address] [place] [address] Marisol Hidalgo APRN [address] [place] [address] Social History Tobacco Use Types Packs/Day Years [...] Procedure Name Priority Date/Time Associated Diagnosis Comments XR OUTSIDE IMAGES 01/23/2021 1:03 PM EDT documented in this encounter Results * XR OUTSIDE IMAGES (01/23/2021 1:03 PM EDT) Anatomical Region Laterality Modality Radiographic Isabella ging 01/23/2021 1:03 PM EDT Marisol Hidalgo SIMULATION SOFTWARE ENGINEER IMG XR PROCEDURES Final Res ult documented in this encounter Visit Diagnoses Not on filedocumented in this encounter Care Teams Systems Trainer Relationship Specialty Start Date End Date Marisol Hidalgo APRN [address] [place] [address] PCP - General 12/19/20 11/26/21 Kenya Antony APRN [address] [place] [id number] PCP - General 11/27/21 07/10/23 Consuelo Segundo APRN [address] [place] [address] PCP - General 07/11/23 Asael Bolden MD [address] [place] [address] Surgeon Neurosurgery 03/16/21 Anup Ronquillo MD [address] [place] [address] Consulting Physician Neurology 10/19/21 documented as of this encounter
--- OUTSIDE RECORDS SUMMARY | 2025-03-15 16:03 | XMS_ITS | Encounter Summary ---
Author Organization Healthcare Address [address] [place] [address] Care Team Providers Care Project Control Manager Name Role Phone Marisol Hiadlgo APRN Primary Care Provider [phone] Asael Boledn MD Unavailable [phone] Anup Ronquillo MD Unavailable [phone] Kenya Antony APRN Primary Care Provider [phone]- [phone] Consuelo Segundo APRN Primary Care Provider + [phone] Encounter Details Date Type Department Care Team (Late st Contact Info) Description 02/26/2019 Orders Only External Location [address] [place] [address] Provider, External Social History Tobacco Use Types [...] Date/Time Associated Diagnosis Comments MR OUTSIDE IMAGES 02/26/2019 12:48 PM EDT documented in this encounter Results * MR transfer of outside films (02/26/2019 12:48 PM EDT) Anatomical Region Laterality Modality Magnetic Resonan ce 02/26/2019 12:4 8 PM EDT us External Provider IMG MRI PROCEDURES Final Resul t documented in this encounter Visit Diagnoses Not on filedocumented in this encounter Care Teams Project Control Manager Relationship Specialty Start Date End Date Marisol Hidalgo APRN [address] [place] [address] PCP - General 12/19/20 11/26/21 Kenya Antony APRN [address] [place] [address] PCP - General 11/27/21 07/10/23 Consuelo Segundo APRN [address] [place] [address] PCP - General 07/11/23 Asael Bolden MD [address] [place] [address] Surgeon Neurosurgery 03/16/21 Anup Ronquillo MD [address] [place] [address] Consulting Physician Neurology 10/19/21 documented as of this encounter
--- OUTSIDE RECORDS SUMMARY | 2025-03-15 16:03 | XMS_ITS | Encounter Summary ---
Author Organization [employer] ([place], [place], [place], [place]) Address [address] [place] [address] Care Team Providers Care Stewarding Supervisor Name Role Phone Salomón Frausto PA-C Unavailable [phone] Edson Miller MD Primary Care Provider [phone] Consuelo Segundo APRN Primary Care Provider [phone]- [phone] Encounter Details Date Type Department Care Team (Late st Contact Info) Description 12/04/2020 Transcribed Document [facility] [address] [place] [address] Provider, Lucas Merlos MD Social History Tobacco Use Types Packs/Day Years Used Date Smoking Tobacco: Never Assessed Sex and Gender Information Value Date Recorded Sex Assigned at Not on file Legal Sex Male 5:16 PM CDT Gender Identity Not on file Sexual Orientation Not on file documented as of this encounter Miscellaneous Notes * Cerner Conversion Note - [facility] Gaurang ProviderMD - 12/04/2020 4:24 PM EDT Treatment Intervention, OT Entered On: 12/05/2020 11:23 EDT Performed On: 12/05/2020 11:16 EDT by LATESHA DELUCA OTR/Patricia General Information, OT Visit Type, OT : Treatment Note Patient Orders : Order Date Order Ordering 12/04/2020 08:15 OT Evaluation and Treatment Ordered By: ARMANDO SOTO MD-INT 12/04/2020 15:24 OT Additional Treatment Ordered By: Active Diagnoses : No Qualifying Diagnoses Therapy Diagnosis, OT : Decreased I with ADLs and fxnl mobility secondary to LOC with likely concussion, resulting in fxnl decline. Admission Date : 12/04/2020 04:37 Personal Devices : Personal Devices Glasses Assistive Devices : Assistive Devices No Devices Recorded General Information Comment, OT : Pt agreeable to tx. LATESHA DELUCA OTR/L - 12/05/2020 11:16 EDT General Status Patient Received Status : Supine in bed Treatment Start Time : 12/05/2020 9:35 EDT Patient Left Status : Sitting edge of bed, All needs met and within reach RN/PCT Informed Comment : ok per Indu STOKES Treatment End Time : 12/05/2020 9:48 EDT Treatment Time : 13 Minute(s) LATESHA DELUCA OTR/L - 12/05/2020 11:16 EDT Self Care/Home Management, OT Self Feeding Assist Level, OT : Independent, complete Grooming Assist Level, OT : Independent, complete Grooming Comment, OT : pt stood at sink to brush hair Toileting Assist Level : Independent, complete Toilet Transfer Assist Level : Independent, complete Toilet Transfer Comment : pt ambulated into bathroom without assist for toileting LATESHA DELUCA OTR/L - 12/05/2020 11:16 EDT Functional Mobility Mobility Grid Bed Roll Left : Rehab Complete independence Bed Scooting : Rehab Complete independence Supine to Sit : Rehab Complete independence Sit to Stand : Rehab Complete independence Stand to Sit : Rehab Complete independence LATESHA DELUCA OTR/L - 12/05/2020 11:16 EDT Functional MobilityComment : Pt ambulated around unit X 2 independently with no LOB noted. Pt wearing gait belt. Pt left seated EOB with call light in reach. LATESHA DELUCA OTR/L - 12/05/2020 11:16 EDT Plan of Care, OT OT Tx Plan/Goals Established w Patient : Yes LATESHA DELUCA OTR/L - 12/05/2020 11:16 EDT Penitentiary Goals, OT Grooming LTG Grid Goal #1 Activity : Grooming Cues : No cues Assist : Independent, complete Date to Meet : 12/18/2020 EDT Goal Status : Goal met Date Met : 12/05/2020 EDT Comment : Standing at sink LATESHA DELUCA OTR/L - 12/05/2020 11:16 EDT Dressing, Lower Body LTG Grid Goal #1 Activity : Dressing, Lower Body Cues : No cues Assist : Independent, complete Date to Meet : 12/18/2020 EDT Goal Status : Initial goal LATESHA DELUCA OTR/L - 12/05/2020 11:16 EDT Toilet Transfer LTG Grid Goal #1 Activity : Toilet Transfer, Ambulatory Cues : No cues Assist : Independent, complete Date to Meet : 12/18/2020 EDT Goal Status : Goal met Date Met : 12/05/2020 EDT LATESHA DELUCA OTR/L - 12/05/2020 11:16 EDT Bed Mobility/ Bed Transfer LTG Grid Goal #1 Activity : Bed Mobility/Bed Transfer Cues : No cues Assist : Independent, complete Date to Meet : 12/18/2020 EDT Goal Status : Goal met Date Met : 12/05/2020 EDT LATESHA DELUCA OTR/L - 12/05/2020 11:16 EDT Treatment Note Subjective Comment : pt pleasant and cooperative Patient's Response to Treatment : pt tolerated well on RA Additional Objective Information : addressed fxl mobility Assessment : Pt states he has been ambulating in room ad jayne without AD. Pt close to baseline independence and anticipates d/c home today. Pt lives alone but states his sister and girlfriend can check in on him daily. Plan for Treatment : Cont per POC LATESHA DELUCA OTR/L - 12/05/2020 11:16 EDT Pain Assessment Pain Scaled Used : 0-10 Pain scale Pain Score Pre-Intervention : 4 Location : Headache, frontal Pain Comment : Pt states he received pain meds this a.mLATESHA MCCONNELL OTR/L - 12/05/2020 11:16 EDT Image 1 - Images currently included in the form version of this document have not been included in the text rendition version of the form. Anticipated Discharge Needs, OT/PT Anticipated Discharge to : Home, independently LATESHA DELUCA OTR/L - 12/05/2020 11:16 EDT [facility] OT Charges OT Ther Activities Ea 15 Min : 1 YOSI LATESHA, OTR/L - 12/05/2020 11:16 EDT documented in this encounter Plan of Treatment Not on file documented as of this encounter Visit Diagnoses Not on filedocumented in this encounter Care Teams Stewarding Supervisor Relationship Specialty Start Date End Date Edson Miller MD [address] [place] [address] PCP - General Internal Medicine/Pediatrics 07/21/22 07/11/24 Consuelo Segundo, RUFFLER 209 [facility] [address] [place] [address] PCP - General Family Medicine 07/12/24 Salomón Frausto PA-C [address] [place] [address] Orthopedist Physician Upholstery Department Supervisor 05/07/22 documented as of this encounter
--- OUTSIDE RECORDS SUMMARY | 2025-03-15 16:03 | XMS_ITS | Encounter Summary ---
Author Organization [email or web address] ([place], [place], [place], [place]) Address [address] [place] [address] Care Team Providers Care Correspondence Dictator Name Role Phone Salomón Frausto PA-C Unavailable [phone] Edson Miller MD Primary Care Provider [phone] Consuelo Segundo APRN Primary Care Provider +- [phone] Encounter Details Date Type Department Care Team (Late st Contact Info) Description 12/04/2020 Transcribed Document [facility] [place] [address] [place] [address] ProviderGaurang MD [address] [place] [address] Social History Tobacco Use Types Packs/Day Years Used Date Smoking Tobacco: Never Assessed Sex and Gender Information Value Date Recorded Sex Assigned at Not on file Legal Sex Male 5:16 PM CDT Gender Identity Not on file Sexual Orientation Not on file documented as of this encounter Miscellaneous Notes * Cerner Conversion Note - Historical ProviderMD - 12/04/2020 4:31 PM CDT DATE OF CONSULTATION: 12/04/2020 NEUROLOGY CONSULT HISTORY OF PRESENT ILLNESS: Elliot Mata is a 60-year-old white male with a history of hypertension and an essential tremor, for which he is on primidone, who was transferred to our hospital yesterday from the emergency room at [facility] for further evaluation of a headache. I have been asked to evaluate him for a headache. The patient tells me that as a younger person, he used to have occasional migraines, for which he used to take Imitrex. However, he has not had a migraine in many years. 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 Apparently, there were some 2 x 4's that has already been hung up high when he was doing the work in three times. While he was doing the work 6 days ago, he accidentally raised up and hit his head on the 2 x 4's. He says he specifically remembers one time when an edge of a 2 x 4 hit him around the right orthodox. He says there was no lacerations or loss of consciousness. Later that evening, he started having a headache that began on his right orthodox, but then radiated out throughout his head. He says over the last 6 days, the headache is there with him almost constantly until he gets a narcotic here at our hospital. He says 2 days ago he went to the emergency room at [facility] and they gave him some pain medicines and released him home. As his headache was continuing, he decided to go to an emergency room at [facility] last night, and a head CT was done there that showed no acute changes and he was transferred here for further evaluation. Here, he is getting some narcotics, which helped. He has also been having some nausea and vomiting as well. However, his nausea is a bit better today and he did eat some lunch. CURRENT MEDICATIONS: Here in the hospital include: 1. Amlodipine. 2. Depakote 500 mg a day. 3. Gabapentin 300 mg in the morning and 600 at night. 4. Mesalamine. 5. Protonix. 6. Primidone 250 mg at night. 7. Rosuvastatin. 8. Flomax. 9. Tylenol. 10. Zofran. 11. Oxycodone p.r.n. ALLERGIES: Asmanex, atorvastatin, Levaquin, lithium, Singulair, prednisone, and Topamax. MEDICATIONS AT HOME: According to a computerized home medication list may have included: 1. Depakote 500 in the morning and 500 at night. 2. Mesalamine. 3. Primidone. 4. Diclofenac. 5. Flomax. 6. Amlodipine. 7. Rosuvastatin. 8. Flonase. 9. Nexium. 10. Glycopyrrolate. 11. Gabapentin. PAST MEDICAL HISTORY: 1. He says he used to smoke cigars. 2. No alcohol use. 3. No illicit drug use. 4. He has had a cholecystectomy. 5. He has had surgery on his left arm after an injury to his left arm. 6. He has had surgery on his esophagus for acid reflux disease. 7. Gastroparesis. 8. Kidney stones. 9. Hypertension. 10. He has an essential tremor, for which he sees an outpatient neurologist in [place], [place], and takes primidone for this. 11. He has bipolar disease which was diagnosed 10 years ago, and he has been on Depakote for the last 3 years for this. 12. Migraines - see above. SOCIAL HISTORY: The patient lives in [place], [place], by himself. He has been and 3 times. He has 7 children. He has been on disability for the last 18 years. 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 He drives and walks independently. FAMILY HISTORY: His father of unknown causes. His mother of breast cancer. REVIEW OF SYSTEMS: GENERAL: He denies any fever. EYES: He sometimes has blurred vision. EARS: He denies any hearing loss. CARDIAC: He denies any chest pain. RESPIRATORY: He denies any shortness of breath. GI: He denies any changes in his bowel habits. : He denies any changes in his urinary habits. SKIN: He denies any rashes. MUSCULAR: He denies any muscle aches. NEUROLOGIC: He feels like he might feel a little bit numb on his right side. PSYCHIATRIC: He denies any thoughts of hurting himself. ENDOCRINE: He denies any diabetes. HEMATOLOGIC: He denies any history of cancer. PHYSICAL EXAMINATION: GENERAL: He is a well-developed male, in no acute distress, resting comfortably in bed. VITAL SIGNS: His blood pressure is 122/76, pulse is 61, and his respirations are 12. HEART: Regular rate and rhythm. LUNGS: Clear. NECK: Supple without any bruits. HEENT: An ophthalmologic exam was done and his pupils react equally to light, but I could not see his disc. NEUROLOGIC: Motor exam shows 5/5 strength in both arms and legs. His tone in both arms and legs is normal. He is alert and oriented x3. He has good recent and remote recall. His attention span and concentration are normal. Language skills are normal, and fund of knowledge is adequate. Cranial nerves II through XII are intact. Coordination shows intact [id number] and [id number]. Gait was not tested. Reflexes were 0 to 1+. DIAGNOSTIC STUDIES: IMAGING STUDIES: The cranial MRI has been done here that is within normal limits. LABORATORY RESULTS: Electrolytes and CBC with diff are pending. ASSESSMENT: Elliot Mata is a 60-year-old male with a history of hypertension, essential tremor, and bipolar disease, who has been having some headaches since hitting his head on some 2 x 4's six days ago. The differential for his headaches could include [...] the followin. To continue symptomatic treatment. 2. If his liver function tests come back normal, consideration could be given to a trial of muscle relaxants, such as baclofen. 3. To check a Depakote level and an ammonia level. 4. At discharge, he should follow up with his outpatient neurologist in [place]. 5. I have told him not to drive or operate heavy machinery until released by physician. 6. We may wish to clarify with the patient what his home dose of Depakote is. Of note, I have spent over an hour on this patient today. Over half of that time was spent reviewing the chart and counseling the patient. I will follow with you. /[id number] MD PINKY Joseph/ALEX / WSB / MODL /[id number] documented in this encounter Plan of Treatment Not on file documented as of this encounter Visit Diagnoses Not on filedocumented in this encounter Care Teams Correspondence Dictator Relationship Specialty Start Date End Date Edson Miller MD [address] [place] [address] PCP - General Internal Medicine/Pediatrics 07/21/22 07/11/24 Consuelo Segundo, BELLE 209 [facility] [address] [place] [address] PCP - General Family Medicine 07/12/24 Salomón Frausto PA-C [address] [place] [address] Orthopedist Physician Network Designer 05/07/22 documented as of this encounter
--- OUTSIDE RECORDS SUMMARY | 2025-03-15 16:03 | XMS_ITS | Encounter Summary ---
Author Organization [employer] ([place], [place], [place], [place]) Address [address] [place] [address] Care Team Providers Care Quality Improvement Coordinator Name Role Phone Salomón Frausto PA-C Unavailable [phone] Edson Miller MD Primary Care Provider [phone] Consuelo Segundo APRN Primary Care Provider [phone]- [phone] Encounter Details Date Type Department Care Team (Late st Contact Info) Description 12/04/2020 Transcribed Document [facility] [address] [place] [address] ProviderGaurang MD [address] [place] [address] Social History Tobacco Use Types Packs/Day Years Used Date Smoking Tobacco: Never Assessed Sex and Gender Information Value Date Recorded Sex Assigned at Not on file Legal Sex Male 5:16 PM CDT Gender Identity Not on file Sexual Orientation Not on file documented as of this encounter Miscellaneous Notes * Cerner Conversion Note - Historical ProviderMD - 12/04/2020 5:00 AM CDT Chart Check - Review Order Profile Entered On: 12/04/2020 7:42 EDT Performed On: 12/04/2020 5:00 EDT by Loki Coffey Non Emp RN Chart Check All Active Orders Reviewed : Yes Loki Coffey Non Emp RN - 12/04/2020 7:42 EDT documented in this encounter Plan of Treatment Not on file documented as of this encounter Visit Diagnoses Not on filedocumented in this encounter Care Teams Quality Improvement Coordinator Relationship Specialty Start Date End Date Edson Miller MD [address] [place] [address] PCP - General Internal Medicine/Pediatrics 07/21/22 07/11/24 Consuelo Segundo, CADDIE [address] [facility] [address] [place] [address] PCP - General Family Medicine 07/12/24 Salomón Frausto PA-C [address] [place] [address] Orthopedist Physician Mold Filling Operator 05/07/22 documented as of this encounter
--- OUTSIDE RECORDS SUMMARY | 2025-03-15 16:03 | XMS_ITS | Encounter Summary ---
Author Organization [email or web address] ([place], [place], [place], [place]) Address [address] [place] [address] Care Team Providers Care Bit Setter Name Role Phone Salomón Frausto PA-C Unavailable [phone] Edson Miller MD Primary Care Provider [phone] Consuelo Segundo APRN Primary Care Provider +- [phone] Encounter Details Date Type Department Care Team (Late st Contact Info) Description 12/04/2020 Transcribed Document [facility] [address] [place] [address] ProviderGaurang MD [address] [place] [address] Social History Tobacco Use Types Packs/Day Years Used Date Smoking Tobacco: Never Assessed Sex and Gender Information Value Date Recorded Sex Assigned at Not on file Legal Sex Male 5:16 PM CDT Gender Identity Not on file Sexual Orientation Not on file documented as of this encounter Miscellaneous Notes * Cerner Conversion Note - Gaurang ProviderMD - 12/04/2020 8:21 AM CDT Pain Assessment Entered On: 12/04/2020 16:13 EDT Performed On: 12/04/2020 10:29 EDT by Indu Bansal, RN Intervention Information: acetaminophen Performed by Indu Bansal, RN on 12/04/2020 09:29:00 EDT acetaminophen,650mg Oral,Pain (Mild 1-3) Pain Assessment Pain Assessment : Follow-up assessment Pain Improved by Intervention : Yes Indu Bansal RN - 12/04/2020 16:13 EDT documented in this encounter Plan of Treatment Not on file documented as of this encounter Visit Diagnoses Not on filedocumented in this encounter Care Teams Bit Setter Relationship Specialty Start Date End Date Edson Miller MD [address] [place] [address] PCP - General Internal Medicine/Pediatrics 07/21/22 07/11/24 Consuelo Segundo, MID LEVEL DEVELOPER [address] [address] PCP - General Family Medicine 07/12/24 Salomón Frausto PA-C [address] [place] [address] Orthopedist Physician Waste Management Specialist 05/07/22 documented as of this encounter
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
--- OUTSIDE RECORDS SUMMARY | 2025-03-15 16:03 | XMS_ITS | Encounter Summary ---
Author Organization [employer] ([place], [place], [place], [place]) Address [address] [place] [address] Care Team Providers Care Home Hospice Aide Name Role Phone Salomón Frausto PA-C Unavailable [phone] Edson Miller MD Primary Care Provider [phone] Consuelo Segundo APRN Primary Care Provider +- [phone] Encounter Details Date Type Department Care Team (Late st Contact Info) Description 12/04/2020 Transcribed Document [facility] [place] Family Medicine [address] [place] [address] ProviderGaurang MD [address] [place] [address] Social History Tobacco Use Types Packs/Day Years Used Date Smoking Tobacco: Never Assessed Sex and Gender Information Value Date Recorded Sex Assigned at Not on file Legal Sex Male 5:16 PM CDT Gender Identity Not on file Sexual Orientation Not on file documented as of this encounter Miscellaneous Notes * Cerner Conversion Note - Historical ProviderMD - 12/04/2020 5:00 PM CDT Chart Check - Review Order Profile Entered On: 12/04/2020 19:43 EDT Performed On: 12/04/2020 17:00 EDT by Inud Bansal, RN Chart Check Powerplans Initiated/Discontinued as Appropriate : Yes All Active Orders Reviewed : Yes Indu Bansal, DIVYA - 12/04/2020 19:43 EDT documented in this encounter Plan of Treatment Not on file documented as of this encounter Visit Diagnoses Not on filedocumented in this encounter Care Teams Home Hospice Aide Relationship Specialty Start Date End Date Edson Miller MD [address] [place] [address] PCP - General Internal Medicine/Pediatrics 07/21/22 07/11/24 Consuelo Segundo, ROOF TILE LAYER [address] [facility] [address] [place] [address] PCP - General Family Medicine 07/12/24 Salomón Frausto PA-C [address] [place] [address] Orthopedist Physician Psychiatric Lpn 05/07/22 documented as of this encounter
--- OUTSIDE RECORDS SUMMARY | 2025-03-15 16:03 | XMS_ITS | Referral Summary ---
Author Organization [employer] ([place], [place], [place], [place]) Address [address] [place] [address] Care Team Providers Care Credit Collections Clerk Name Role Phone Salomón Frausto PA-C Unavailable [phone] Consuelo Segundo APRN Primary Care Provider [phone] Allergies Active Allergy Reactions Criticality Noted Date Comments Metronidazole 07/21/2022 Levofloxacin Other (See Comments) Low 10/22/2015 [place] 07/21/2022 Prednisone 07/21/2022 Montelukast 07/21/2022 Medications amLODIPine [...] disease), lumbar 03/28/20 23 Lumbar radiculopathy 03/28/2023 Social History Tobacco Use Types Packs/Day Years [...] Date Markel rded Speak language other than Israeli at home Not on file 08/25/2023 Want [...] 07/04/2024 11:00 AM EST Plan of Treatment Not on file Medical Devices Implanted Type Area Shank Scourer Device Identifier Shelf Expiration Date Model / Serial / Lot Iol Uv Clareon +30.0 [id number] - [id number] Implanted:Qty: 1 on 07/12/2024 by King Dey MD at [facility] IMPLANTS Right: Eye REHANA 11/15/2026 [id number] / [id number] / Iol Uv Clareon +30.0 [id number] - [id number] Implanted:Qty: 1 on 07/26/2024 by King Dey MD at [facility] IMPLANTS Left: Eye REHANA 11/03/2027 [id number] / [id number] / Insurance MEDICAID OF [place] [facility] DUAL COMPLETE MCR ADV UHC MCR ADV DUAL COMPLETE Care Teams Credit Collections Clerk Relationship Specialty Start Date End Date Consuelo Segundo, GRAIN RECEIVER [address] [address] PCP - General Family Medicine 07/12/24 Salomón Frausto PA-C [address] [place] [address] Orthopedist Physician Drawstring Knotter 05/07/22
--- OUTSIDE RECORDS SUMMARY | 2025-03-15 16:03 | XMS_ITS | Encounter Summary ---
Author Organization [employer] ([place], [place], [place], [place]) Address [address] [place] [address] Care Team Providers Care Rod Buster Helper Name Role Phone Salomón Frausto PA-C Unavailable [phone] Edson Miller MD Primary Care Provider [phone] Consuelo Segundo APRN Primary Care Provider +- [phone] Encounter Details Date Type Department Care Team (Late st Contact Info) Description 12/04/2020 Transcribed Document [facility] Family Medicine [address] [place] [address] ProviderGaurang MD [address] [place] [address] Social History Tobacco Use Types Packs/Day Years Used Date Smoking Tobacco: Never Assessed Sex and Gender Information Value Date Recorded Sex Assigned at Not on file Legal Sex Male 5:16 PM CDT Gender Identity Not on file Sexual Orientation Not on file documented as of this encounter Miscellaneous Notes * Cerner Conversion Note - Historical ProviderMD - 12/04/2020 9:29 AM CDT Pain Assessment Entered On: 12/04/2020 16:14 EDT Performed On: 12/04/2020 10:49 EDT by Indu Bansal, RN Intervention Information: oxyCODONE Performed by Indu Bansal, RN on 12/04/2020 09:49:00 EDT oxyCODONE,5mg Oral,Pain (Severe 7-10) Pain Assessment Pain Assessment : Follow-up assessment Pain Improved by Intervention : Yes Indu Bansal, RN - 12/04/2020 16:14 EDT documented in this encounter Plan of Treatment Not on file documented as of this encounter Visit Diagnoses Not on filedocumented in this encounter Care Teams Rod Buster Helper Relationship Specialty Start Date End Date Edson Miller MD [address] [place] [address] PCP - General Internal Medicine/Pediatrics 07/21/22 07/11/24 Consuelo Segundo, SPECIAL INVESTIGATION UNIT INVESTIGATOR 209 [facility] [address] [place] [address] PCP - General Family Medicine 07/12/24 Salomón Frausto PA-C [address] [place] [address] Orthopedist Physician Chief Deputy 05/07/22 documented as of this encounter
[2025-03-15 19:01] LABS: Alanine Aminotransferase 26 U/L (12-78); Albumin Level 4.4 g/dl (3.5-5.0); Albumin/Globulin Ratio 1.8 (1.1-1.8); Alkaline Phosphatase 113 U/L (38-126); Anion Gap 9.8 mEq/L (5-15); Aspartate Amino Transferase 35 U/L (17-59); Bilirubin,Total 0.6 mg/dl (0.2-1.3); Blood Urea Nitrogen 13 mg/dl (9-20); Calcium 9.2 mg/dl (8.4-10.2); Carbon Dioxide 29 mmol/L (22.0-30.0); Chloride 104 mmol/L (98-107); Creatinine,Serum 0.80 mg/dl (0.66-1.25); Estimated Glomerular Filt Rate 97 ml/min (>60); GFR (African American) 118 ML/MIN (>60); Globulin 2.4 g/dL (1.3-3.2); Glucose 101 mg/dl (74-100); Potassium 3.8 mmoL/L (3.5-5.1); Sodium 139 mmol/L (136-145); Total Protein,Serum 6.8 g/dl (6.3-8.2)
== END 2025-03-15 23:59 | disposition home or self-care (01) ==
LOC: LAB 16:00
PROVIDERS: PCP Nurse Practitioner; Visit Provider Nurse Practitioner Family
DX: K76.0 Fatty (change of) liver, not elsewhere classified (principal)
CPT/HCPCS: 36415; 80053

== ENCOUNTER 2025-04-18 16:40 | Emergency (ER) | payer MEDICARE, MEDICAID, SELFPAY ==
[2025-04-18] VITALS (8 sets, daily range): BP systolic 128–158; BP diastolic 76–92; PULSE 56–68; RESP 16; TEMP 36.5; O2SAT 95–98; BMI 29.8
--- OUTSIDE RECORDS SUMMARY | 2025-04-18 18:08 | XMS_ITS | Encounter Summary ---
Author Organization Healthcare Address [address] [place] [address] Care Team Providers Care Cloth Winding Supervisor Name Role Phone Asael Bolden MD Unavailable [phone] Anup Ronquillo MD Unavailable [phone] Kenya Antony APRN Primary Care Provider [phone] Consuelo Segundo APRN Primary Care Provider + [phone] Encounter Details Date Type Department Care Team (Late st Contact Info) Description 04/06/2023 Orders Only External Location [address] [place] [address] Provider, External Social History Tobacco Use Types [...] as of this encounter Plan of Treatment Upcoming Encounters Date Type Department Care Team (Late st Contact Info) Description 05/13/2025 9:00 AM EDT Consult [place] [facility] [address] [place] [address] Asael Bolden MD [address] [place] [address] documented as of this encounter Procedures Procedure [...] documented as of this encounter Care Teams Cloth Winding Supervisor Relationship Specialty Start Date End Date Kenya Antony APRN [address] [place] [address] PCP - General 11/27/21 07/10/23 Consuelo Segundo APRN [address] [place], [place] [address] PCP - General 07/11/23 Asael Bolden MD [address] [place] [address] Surgeon Neurosurgery 03/16/21 Anup Ronquillo MD [address] [place] [address] Consulting Physician Neurology 10/19/21 documented as of this encounter
--- OUTSIDE RECORDS SUMMARY | 2025-04-18 18:08 | XMS_ITS | Encounter Summary ---
Author Organization Healthcare Address [address] [place] [address] Care Team Providers Care Youth Services Librarian Name Role Phone Marisol Hidalgo APRN Primary Care Provider [phone]- [phone] Asael Bolden MD Unavailable [phone] Anup Ronquillo MD Unavailable [phone] Kenya Antony APRN Primary Care Provider [phone] Consuelo Segundo APRN Primary Care Provider + [phone] Encounter Details Date Type Department Care Team (Late st Contact Info) Description 01/23/2021 Orders Only External Location [address] [place] [id number] Marisol Hidalgo APRN [address] [place] [address] Social History Tobacco Use Types Packs/Day [...] Info) Description 05/13/2025 9:00 AM EDT Consult [place] [facility] [address] [place] [address] Asael Bolden MD [address] [place] [address] documented as of this encounter Procedures Procedure Name Priority Date/Time Associated Diagnosis Comments XR OUTSIDE IMAGES 01/23/2021 1:03 PM EDT documented in this encounter Results * XR OUTSIDE IMAGES (01/23/2021 1:03 PM EDT) Anatomical Region Laterality Modality Radiographic Isabella ging 01/23/2021 1:03 PM EDT Marisol Hidalgo INCIDENT RESPONSE MANAGER IMG XR PROCEDURES Final Res ult documented in this encounter Visit Diagnoses Not on filedocumented in this encounter Care Teams Youth Services Librarian Relationship Specialty Start Date End Date Marisol Hidalgo APRN [address] [place] [address] PCP - General 12/19/20 11/26/21 Kenya Antony APRN [address] [place] [address] PCP - General 11/27/21 07/10/23 Consuelo Segundo APRN [address] [place] [id number] PCP - General 07/11/23 Asael Bolden MD [address] [place] [address] Surgeon Neurosurgery 03/16/21 Anup Ronquillo MD [address] [place] [address] Consulting Physician Neurology 10/19/21 documented as of this encounter
--- OUTSIDE RECORDS SUMMARY | 2025-04-18 18:08 | XMS_ITS | Encounter Summary ---
Author Organization Healthcare Address [address] [place] [address] Care Team Providers Care Long Line Teamster Name Role Phone Marisol Hidalgo APRN Primary Care Provider [phone] Asael Bolden MD Unavailable [phone] Anup Ronquillo MD Unavailable [phone] Kenya Antony APRN Primary Care Provider [phone] Consuelo Segundo APRN Primary Care Provider + [phone] Encounter Details Date Type Department Care Team (Late st Contact Info) Description 02/06/2021 Orders Only External Location [address] [place] [address] Provider, External Social History Tobacco [...] Consult [place] [facility] [address] [place] [address] Asael Bolden MD [address] [place] [address] documented as of this encounter [...] on filedocumented in this encounter Care Teams Long Line Teamster Relationship Specialty Start Date End Date Marisol Hidalgo, RETORT COOLER [address] [place] [address] PCP - General 12/19/20 11/26/21 Kenya Antony APRN [address] [place] [address] PCP - General 11/27/21 07/10/23 Consuelo Segundo APRN [address] [place], [place] [phone] PCP - General 07/11/23 Asael Bodlen MD [address] [place] [address] Surgeon Neurosurgery 03/16/21 Anup Ronquillo MD [address] [place] [address] Consulting Physician Neurology 10/19/21 documented as of this encounter
--- OUTSIDE RECORDS SUMMARY | 2025-04-18 18:08 | XMS_ITS | Encounter Summary ---
Author Organization [facility] Address [address] [place] [address] Care Team Providers Care Field Supervisor Seed Production Name Role Phone Marisol Hidalgo APRN Primary Care Provider [phone] Asael Bolden MD Unavailable [phone] Anup Ronquillo MD Unavailable [phone] Kenya Antony APRN Primary Care Provider [phone] Consuelo Segundo APRN Primary Care Provider + [phone] Encounter Details Date Type Department Care Team (Late st Contact Info) Description 02/26/2019 Orders Only External Location [address] [place] [address] Provider, External Social History Tobacco [...] Info) Description 05/13/2025 9:00 AM EDT Consult [place] [facility] [address] [place] [address] Asael Bolden MD [address] [place] [address] documented as of this encounter [...] on filedocumented in this encounter Care Teams Field Supervisor Seed Production Relationship Specialty Start Date End Date Marisol Hidalgo APRN [address] [place] [address] PCP - General 12/19/20 11/26/21 Kenya Antony APRN [address] [place] [address] PCP - General 11/27/21 07/10/23 Consuelo Segundo APRN [address] [place] [id number] PCP - General 07/11/23 Asael Bolden MD [address] [place] [address] Surgeon Neurosurgery 03/16/21 Anup Ronquillo MD [address] [place] [address] Consulting Physician Neurology 10/19/21 documented as of this encounter
--- OUTSIDE RECORDS SUMMARY | 2025-04-18 18:08 | XMS_ITS | Encounter Summary ---
Author Organization [facility] Address [address] [place] [address] Care Team Providers Care Boot Maker Name Role Phone Asael Bolden MD Unavailable [phone] Anup Ronquillo MD Unavailable [phone] Consuelo Segundo APRN Primary Care Provider + [phone] Encounter Details Date Type Department Care Team (Late st Contact Info) Description 04/10/2025 Telephone [place] [facility] [address] [place] [address] Asael Bolden MD [address] [place] [address] Social History Tobacco Use Types Packs/Day Years [...] as of this encounter Miscellaneous Notes * Telephone Encounter - Carleen Fletcher - 04/10/2025 12:20 PM EDT Patient Phone Message Reason for Call: Pt is calling and asking for an appointment to see Dr Bolden he said that his lower back is hurtingand his Primary just did a new CT scan and said he can get that to us and wants to know if he needsanother referral? It has not been quite 2 years since he was seen. He is asking for a call Please advise. Best contact number and optimal time of day to reach caller: [phone] Note: Please do not reply to this message. Follow-up communication and further actions as a result of this message need to be communicated with the patient directly, if the patient is not active onMyChart. If the patient is active on MyChart, they will receive notification of the communication/outcome via MyChart. documented in this encounter Plan of Treatment Upcoming Encounters Date Type Department Care Team (Late st Contact Info) Description 05/13/2025 9:00 AM EDT Consult [place] [facility] [address] [place] [address] Asael Bolden MD [id number] [place] [address] documented as of this encounter Visit Diagnoses Not on filedocumented in this encounter Additional Health Concerns Assessment Noted Time A fall risk assessment has been complete d for the patient 07/11/2023 12:00 PM EST A Body Mass Index follow-up plan has been documented for the patient 07/12/2023 12:42 PM EST documented as of this encounter Care Teams Boot Maker Relationship Specialty Start Date End Date Sanya ConsueloBELLE qiu [address] [place] [address] PCP - General 07/11/23 Asael Bolden MD [address] [place] [address] Surgeon Neurosurgery 03/16/21 Anup Ronquillo MD [address] [place] [address] Consulting Physician Neurology 10/19/21 documented as of this encounter
--- OUTSIDE RECORDS SUMMARY | 2025-04-18 18:08 | XMS_ITS | Clinical Summary ---
Author Organization [facility] Address [address] [place] [address] Care Team Providers Care Straightener Gun Parts Name Role Phone Asael Bolden MD Unavailable [phone] Anup Ronquillo MD Unavailable [phone] Consuelo Segundo APRN Primary Care Provider + [phone] Allergies Active Allergy Reactions Criticality Noted Date [...] do not know rxn details Low 10/22/2015 [place] Unknown - Patient st ates they do [...] BEFORE PROCEDURE. DO NOT DRIVE; MUST HAVE INSURANCE SALESPERSON PRESENT FOR PROCEDURE 2 Active metoprolol tartrate [...] Low back pain 03/09/2018 Chronic GERD 10/22/2015 Encounters Date Type Department Care Team Description 04/10/2025 Telephone [place] [facility] [address] [place] [address] Asael Bolden MD from Last 3 Months Immunizations Immunization Administration Dates Next Due TD [...] 07/11/2023 12:00 PM EST Plan of Treatment Upcoming Encounters Date Type Department Care Team (Late st Contact Info) Description 05/13/2025 9:00 AM EDT Consult [place] [facility] [address] [place] [address] Asael Bolden MD [address] [place] [address] Health Maintenance Due Date Last Done Comments [facility]-Depression Screening 1960 [facility]-HIV Screening 1960 [facility]-Hepatitis C Screening 1960 [facility]-Medicare Annual Wellness (AWV) 1960 [facility]-/Child/Adol SDOH Screenings 1960 [facility]- SDOH Screenings 1978 [facility]-Adult SDOH Screenings 1978 CT Colonography 2005 Colonoscopy 2005 FIT-DNA 2005 FIT 2005 FOBT 2005 Sigmoidoscopy 2005 [facility]-Colorectal Cancer Screening 2005 [facility]-Pneumococcal Vaccine: 50 + Years (1 of 1 - PCV) 2010 [facility]-Zoster Vaccines (1 of 2) 2010 [id number] Vaccine ( - season) 2025 [facility]-Influenza Vaccine (#1) 2025 [facility]-DTaP,Tdap,and Td Vaccine [...] patient's age to complete this topic Insurance [place] [facility] MEDICARE Care Teams Straightener Gun Parts Relationship Specialty Start Date End Date Consuelo Segundo APRN [address] [place] [address] PCP - General 07/11/23 Asael Bolden MD [address] [address] Surgeon Neurosurgery 03/16/21 Anup Ronquillo MD [address] [address] Consulting Physician Neurology 10/19/21
--- OUTSIDE RECORDS SUMMARY | 2025-04-18 18:08 | XMS_ITS | Encounter Summary ---
Author Organization [facility] Address [address] [place] [address] Care Team Providers Care Asphalt Paving Superintendent Name Role Phone Marisol Hidalgo APRN Primary Care Provider [phone] Asael Bolden MD Unavailable [phone] Anup Ronquillo MD Unavailable [phone] Kenya Antony APRN Primary Care Provider [phone] Consuelo Segundo APRN Primary Care Provider [phone] Encounter Details Date Type Department Care Team (Late st Contact Info) Description 01/27/2018 Orders Only External Location [address] [place] [address] Provider, External Social History Tobacco [...] Info) Description 05/13/2025 9:00 AM EDT Consult [facility] [address] [place] [address] Asael Bolden MD [address] [place] [address] documented as of this encounter [...] on filedocumented in this encounter Care Teams Asphalt Paving Superintendent Relationship Specialty Start Date End Date Marisol Hidalgo APRN [address] [place] [id number] PCP - General 12/19/20 11/26/21 Kenya Antony APRN [address] [place] [id number] PCP - General 11/27/21 07/10/23 Consuelo Segundo APRN [address] [place] [address] [phone] PCP - General 07/11/23 Asael Bolden MD [address] [place] [address] Surgeon Neurosurgery 03/16/21 Anup Ronquillo MD [address] [place] [address] Consulting Physician Neurology 10/19/21 documented as of this encounter
--- NOTE | 2025-04-18 18:12 | CT_ITS ---
PROCEDURE INFORMATION: Exam: CT Abdomen And Pelvis With Contrast Exam date and time: 04/18/2025 7:34 PM Age: 64 years old Clinical indication: Abdominal pain; Other: Llq; Additional info: Llq abdominal tenderness TECHNIQUE: Imaging protocol: Computed tomography of the abdomen and pelvis with contrast. Radiation optimization: All CT scans at this facility use at least one of these dose optimization techniques: automated exposure control; mA and/or kV adjustment per patient size (includes targeted exams where dose is matched to clinical indication); or iterative reconstruction. Contrast material: ISOVUE; Contrast volume: 75 ml; Contrast route: IV; COMPARISON: CT LUMBAR SPINE WO CON 01/02/2025 6:22 PM FINDINGS: Liver: No suspicious liver lesions. Gallbladder and biliary ducts: Status post cholecystectomy. Pancreas: Unremarkable. Spleen: Unremarkable. Adrenal glands: Unremarkable. Kidneys and ureters: Simple renal cyst in the left kidney. No renal or ureteral stones. No hydronephrosis. Stomach and bowel: Colonic diverticulosis with acute inflammatory changes surrounding a diverticulum at the sigmoid flexure of the colon. No focal fluid collection or free air to suggest perforation. No evidence of intramural abscess. Two small diverticula also noted in the distal duodenum. No evidence of duodenal diverticulitis. Appendix: Appendix is visualized and is normal. Intraperitoneal space: No free fluid. No pneumoperitoneum. Vasculature: Unremarkable. Lymph nodes: Unremarkable. Urinary bladder: Unremarkable. Reproductive: Unremarkable. Bones/joints: No evidence of acute osseous abnormality. Soft tissues: Unremarkable. IMPRESSION: Acute diverticulitis. COMMENTS: Consistent with the [employer]'s Incidental Findings Committee white paper (J Am Yared Radiol 2018): Any incidental renal lesion less than 1 cm or classified as too small to characterize, or any incidental cystic renal lesion characterized as simple-appearing, is likely benign. No follow-up imaging is recommended for these lesions per consensus recommendations based on imaging criteria.
--- NOTE | 2025-04-18 18:31 | HMH.EDGENADL ---
Discharge Plan Disposition Patient Disposition: Home, Self-Care Condition: Good Prescriptions Prescriptions: New amoxicillin-pot clavulanate 875-125 mg tablet 1 tab PO BID Qty: 10 0RF No Action psyllium husk [Metamucil] 0.4 gram capsule 0.4 g PO DAILY colestipol 1 gram tablet 1 g PO BID Qty: 60 5RF esomeprazole magnesium 40 mg capsule,delayed release(DR/EC) 40 mg PO BID Patient Comments: TAKE ONE CAPSULE BY MOUTH TWICE DAILY Sutab 1.479-0.188- 0.225 gram tablet See Rx Instructions PO PER PKG DIR Qty: 24 0RF Rx Instructions: at 6pm the night before procedure, swallow 1 tablet every 1-2 minutes. you should finish 12 tablets and entire 16 oz of water within 20 minutes. IMPORTANT: If you experience pre-related symptoms ( nausea, bloating or cramping) pause and slow the rate of drinking additional water until symptoms diminish. approximately one hour after the last tablet, drink 16 oz of water over 30 mins. then repeat 4 hours before procedure time. gabapentin 600 mg tablet 600 mg PO TID Patient Comments: TAKE ONE TABLET BY MOUTH THREE TIMES DAILY atorvastatin 20 mg tablet 20 mg PO HS Patient Comments: TAKE ONE TABLET BY MOUTH DAILY amlodipine 5 mg tablet 5 mg PO DAILY Patient Comments: TAKE ONE TABLET BY MOUTH DAILY mesalamine [Apriso] 0.375 gram capsule,extended release 24hr 1.48 g PO DAILY Patient Comments: Take 4 capsules every day by oral route as directed for 90 days. Jardiance 25 mg tablet 25 mg PO DAILY Patient Comments: Take 1 tablet every day by oral route. propranolol 10 mg tablet 10 mg PO BID Patient Comments: TAKE ONE TABLET BY MOUTH TWICE DAILY for tremors divalproex [Depakote ER] 500 mg tablet extended release 24 hr 500 mg PO BID Patient Comments: TAKE ONE TABLET BY MOUTH TWICE DAILY tamsulosin 0.4 mg capsule 0.4 mg PO HS Patient Comments: TAKE ONE CAPSULE BY MOUTH ONCE DAILY Referrals Follow up/Referrals: Consuelo Segundo APRN [Primary Care Provider, Medical] - See instructions Activity Restrictions/Add. Instructions Additional Instructions/Restrictions: Please take Augmentin for the next 5 days, twice daily. If you develop fevers, intractable pain, intractable nausea/vomiting, or any other new or concerning symptoms please return to the ER for further evaluation. Please follow up with Dr. Jacob for the colonoscopy you previously had scheduled. Clinical Impressions Clinical Impression: Acute diverticulitis Instructions Patient Instructions: DI for Acute Abdominal Pain Print Language Print Language: Grenadian Discharge ED Provider: Glen Fuentes Adult HPI General Chief complaint: Abdominal Pain Stated complaint: Vomiting,lower back pain,possible kidney stone Time Seen by Provider: 04/18/25 18:03 Mode of Arrival: Ambulatory Source of Information: Patient Description of Symptoms (Recalled from ER Triage Doc. by RN): Patient states he has been having lower pelvic pain, abdominal pain, nausea for 1-2 days. Denies diarrhea, states he has been a little constipated History of Present Illness HPI narrative: This is a 64-year-old male patient, with past medical history of hypertension, diabetes, hyperlipidemia, GERD, recurrent kidney stones, and prior diverticulitis, who is presenting to the emergency department today for evaluation of abdominal pain. Patient states that he has had pain in his left lower quadrant of his abdomen as well as in his left flank region since this morning. He tells me that he is not having the typical dysuria, hematuria, and urinary frequency that he experiences with prior stones that he has had. He has not had any diarrhea, nausea, or vomiting. No fevers. He is not having chest pain or shortness of breath. He states that the bumps in the road on the way to the hospital were causing him to have significant abdominal pain. He states that he has had difficulty producing bowel movements today but he is still passing gas. The pain does radiate into his scrotum. Related Data Home Medications ?Medication ?Instructions ?Recorded ?Confirmed amlodipine 5 mg tablet 5 mg PO DAILY 05/29/24 01/24/25 atorvastatin 20 mg tablet 20 mg PO HS 05/29/24 03/14/25 empagliflozin 25 mg tablet 25 mg PO DAILY 05/29/24 03/14/25 (Jardiance) gabapentin 600 mg tablet 600 mg PO TID 05/29/24 03/14/25 mesalamine 0.375 gram 1.48 g PO DAILY 05/29/24 03/14/25 capsule,extended release 24 hr (Apriso) divalproex 500 mg tablet,extended 500 mg PO BID bipolar disease 10/15/24 03/14/25 release 24 hr (Depakote ER) propranolol 10 mg tablet 10 mg PO BID tremors 10/15/24 03/14/25 tamsulosin 0.4 mg capsule 0.4 mg PO HS 10/15/24 03/14/25 esomeprazole magnesium 40 mg 40 mg PO BID 11/08/24 03/14/25 capsule,delayed release psyllium husk 0.4 gram capsule 0.4 g PO DAILY 03/14/25 03/14/25 (Metamucil) Previous Rx's ?Medication ?Instructions ?Recorded colestipol 1 gram tablet 1 g PO BID #60 tabs 03/14/25 sodium sul 1.479 gram-potas ch See Rx Instructions PO PER PKG DIR 04/09/25 0.188 gram-magnes sul 0.225 gram colonscopy #24 tabs tablet (Sutab) amoxicillin 875 mg-potassium 1 tab PO BID #10 tabs 04/18/25 clavulanate 125 mg tablet Allergies Allergy/AdvReac Type Severity Reaction Status Date / Time prednisone Allergy Mild Other Verified 03/14/25 11:36 levofloxacin (From Levaquin) Allergy Other Verified 03/14/25 11:36 lithium Allergy Other Verified 03/14/25 11:36 metronidazole (From Flagyl) Allergy Other Verified 03/14/25 11:36 mometasone furoate (From Allergy Other Verified 03/14/25 11:36 Asmanex Twisthaler) montelukast (From Singulair) Allergy Other Verified 03/14/25 11:36 [facility] Disclaimer: The information contained in this section may have been updated after the patient was seen, as this information can be updated by other users. Medical History Chest pain Nausea, vomiting and diarrhea Abdominal pain Diastasis of rectus abdominis Kidney stone on left side Left flank pain Stye Bronchitis Concussion Corneal abrasion Foreign body, intraocular Left wrist sprain Urinary tract infection Right foot pain Left foot pain Metatarsalgia of right foot Diabetic foot Diabetes mellitus Left wrist amputee GERD (gastroesophageal reflux disease) Depression Anxiety Diabetes mellitus, type 2 Hyperlipidemia Hypertension Surgical History H/O left wrist surgery Hx of cataract surgery History of cholecystectomy History of hip replacement Family History Brother Asthma Hypertension Mother Cancer Hypertension Sister Diabetes Hypertension Brother Diabetes Hypertension Grandfather Tuberculosis Social History Smoking Status: Never smoker second hand exposure: No alcohol intake: never substance use type: denies use current occupational status: unemployed Travel in the last 8 weeks?: None lives independently: No marital status: Have you lived/traveled outside [place] in past 30 days?: No Contact w/someone who lives/traveled outside US past 30 days?: No Exposure to someone with infectious disease in past 14 days?: No Do you have a fever (greater than 100.4 F or 38 C)?: No Have you tested positive for COVID-19?: No Exposed to someone with COVID-19 in past 14 days?: No Do you have a sore throat?: No Do you have a cough?: No Do you have any weakness?: No Do you have any diarrhea?: No Are you experiencing any unusual bleeding?: No Do you have any muscle aches/pain?: No Do you have any abdominal pain?: No Are you experiencing loss of taste or smell?: No Other Medical History Have you received the Flu Vaccine for this season: No Have you received the Pneumonia Vaccine: No ROS Obtained: Yes Systems reviewed as appropriate & no additional complaints except as documented Physical Exam General General appearance: other (See MDM) Respiratory Respiratory exam: Present other (See MDM) Cardiovascular Cardiovascular exam: Present other (See MDM) Neurological Exam Neurological exam: Present other (See MDM) Medical Decision Making Medical Records Medical records reviewed: Yes I reviewed the patient's medical records. Screening: Per USPSTF and CDC recommendations, given the prevalence of disease in our region, it is our hospital?s policy to screen for HIV and viral Hepatitis for all patients aged 18 and over and those with ongoing risk factors. Jeet Inquiry Pt receiving controlled substance: No Jeet was queried for this patient: No Vital Signs: 04/18/25 18:07 04/18/25 19:00 Temperature 97.7 F Temperature Source Oral Pulse Rate 68 Pulse Rate [Right Brachial] 64 Respiratory Rate 16 Blood Pressure 140/92 H Blood Pressure [Right Arm] 158/90 H Blood Pressure Mean [Right Arm] 112 Blood Pressure Source [Right Arm] Automatic Cuff Blood Pressure Position [Right Arm] Sitting 02 Sat by Pulse Oximetry 98 96 Oxygen Delivery Method Room Air Lab Data Lab Results 04/18/25 18:20: WBC 5.9, RBC 5.05, Hgb 15.8, Hct 46.4, MCV 91.9, MCH 31.3 H, MCHC 34.1, RDW 13.2, Plt Count 181, MPV 10.0, Neut % (Auto) 53.8, Lymph % (Auto) 30.2, Addison % (Auto) 12.8 H, Eos % (Auto) 2.7, Baso % (Auto) 0.3, Neut # (Auto) 3.2, Lymph # (Auto) 1.8, Addison # (Auto) 0.8, Eos # (Auto) 0.2, Baso # (Auto) 0.0, Sodium 140, Potassium 3.9, Chloride 104, Carbon Dioxide 31 H, Anion Gap 8.9, BUN 13, Creatinine 1.00, Estimated Creat Clear 89, Estimated GFR 75, Est GFR ( Amer) 91, Glucose 135 H, Lactate 0.9, Calcium 9.0, Total Bilirubin 0.8, AST 27, ALT 18, Alkaline Phosphatase 88, Total Protein 7.3, Albumin 4.3, Globulin 3.0, Albumin/Globulin Ratio 1.4, Lipase 70 04/18/25 18:24: Urine Color Yellow, Urine Appearance Clear, Urine pH 6.5, Ur Specific Sullivan 1.020, Urine Protein Negative, Urine Glucose (UA) 3+, Urine Ketones Trace, Urine Blood Negative, Urine Nitrate Negative, Urine Bilirubin Negative, Urine Urobilinogen 2.0, Ur Leukocyte Esterase Negative, Urine RBC 3-5, Urine WBC Occasional, Ur Squamous Epith Cells Occasional, Urine Bacteria Trace 04/18/25 18:20 04/18/25 18:20 Orders (Tests/Meds): ED MEDICATIONS Discontinued Medications Generic Name Dose Route Start Last Admin Trade Name Freq PRN Reason Stop Dose Admin Iopamidol 75 ml 04/18/25 19:32 04/18/25 19:33 Iopamidol-370 (76%);100ml Bottle IV 04/18/25 19:33 75 ml ONCE ONE Administration Morphine Sulfate 4 mg 04/18/25 18:16 04/18/25 18:56 Morphine 4mg/Ml Syringe IV 04/18/25 18:17 4 mg ONCE ONE Administration Ondansetron HCl 4 mg 04/18/25 18:16 04/18/25 18:56 Ondansetron 4mg/2ml Vial IV 04/18/25 18:17 4 mg ONCE ONE Administration Sodium Chloride 10 ml 04/18/25 19:32 04/18/25 19:33 Sodium Chloride 0.9% 10ml Syr (Rad Only) IV 04/18/25 19:33 10 ml ONCE ONE Administration ORDERS Category Date Time Status CT abdomen pelvis w con Stat Cat Scan 04/18/25 18:12 Completed CBC w/Auto Diff [Complete Blood Count Auto Diff] Stat Lab 04/18/25 18:20 Completed CMP [Comprehensive Metabolic Panel] Stat Lab 04/18/25 18:20 Completed Lactic Acid Stat Lab 04/18/25 18:20 Completed Lipase Stat Lab 04/18/25 18:20 Completed Urinalysis and Microscopic Stat Lab 04/18/25 18:24 Completed Urine Culture Stat Micro 04/18/25 18:24 Received Medical Decision Narrative: In summary, this is a 64-year-old male patient who is presenting to the emergency department today for evaluation of left lower quadrant abdominal pain and flank pain onset this morning. He tells me that his pain is radiating into his testicles. He is not experiencing any urinary or gastrointestinal symptoms otherwise. Comorbidities do include a history of hypertension, hyperlipidemia, diabetes, prior diverticulitis, prior kidney stones. On initial evaluation of the patient they were resting comfortably in no acute distress and nontoxic in appearance. They are hemodynamically stable, saturating well room air, and are neurologically intact. On physical examination the patient he is appropriately alert and oriented with a GCS of 15. Heart and lungs are clear to auscultation bilaterally. He has focal left lower quadrant abdominal tenderness palpation and very mild CVA tenderness on the left. The pain in his abdomen is worse with flexion of the hip. He has no rebound tenderness. On examination of his scrotum there is no evidence of cellulitis or necrotic appearing tissue. He has an intact cremasteric reflex bilaterally. Differential diagnosis includes diverticulitis, ureterolithiasis, pyelonephritis, urinary tract infection, intra-abdominal abscess, among others. I have a low suspicion for acute testicular torsion as the patient does not have any testicular tenderness and he has an intact cremasteric reflex. Initial workup to include hematologic labs as well as a urinalysis and CT scan of the abdomen pelvis with IV contrast. Initial interventions have included 4 mg of morphine and 4 mg of Zofran. Labs personally turbid by me demonstrate no actionable normalities. No leukocytosis. No actionable anemia. No significant electrolyte derangement or evidence of acute kidney injury. Lipase is normal. Urine studies show no evidence of urinary tract infection. CT scan of the abdomen and pelvis as personally turbid by me demonstrates fatty stranding adjacent to the sigmoid colon consistent with diverticulitis. Official radiology read is in agreement and states the patient does not fact have acute diverticulitis. I am aware that the new guidelines for diverticulitis suggest the watch and wait approach without antibiotics for uncomplicated diverticulitis. However, this patient does have a very focal abdominal exam and is experiencing significant distress in terms of symptoms being produced by his diverticulitis. Given his age, symptoms, and comorbidities I do feel that it is safest for this patient to treat with Augmentin. We will treat with a 5-day course of Augmentin. We will administer the first dose here this evening given that pharmacies are currently closed. Patient knowledges understanding and is amenable to this plan. At this time all questions been answered and all parties are agreeable with the decision to discharge. Critical Care Critical Care Time Critical Care Time: No
[2025-04-18 18:35] LABS: Microscopic, Urine URINE MICROSCOPIC (MICROSCOPIC)
[2025-04-18 18:37] LABS: Bilirubin,Urine Negative (Negative); Color,Urine YELLOW (Yellow); Glucose,Urine (UA) 3+ (Negative); Ketones,Urine TRACE (Negative); Leukocyte Esterase,Urine Negative (Negative); PH,Urine 6.5 (5.0-8.5); Protein,Urine Negative (Negative); Specific Gravity, Urine 1.020 (1.005-1.030); Urobilinogen,Urine 2.0 EU/dl (0.2)
[2025-04-18 18:38] LABS: Hematocrit 46.4 % (42.0-52.0); Hemoglobin 15.8 g/dL (14.1-18.0); Immature Granulocytes % 0.2 %; Mean Corpuscular HGB Conc 34.1 g/dL (31.8-35.4); Mean Corpuscular Hemoglobin 31.3 pg (27.0-31.2); Mean Corpuscular Volume 91.9 fl (80-94); Nucleated Red Blood Cells % 0 %; Platelet Count 181 K/mm3 (142-424); Red Blood Count 5.05 M/mm3 (4.60-6.20); Red Cell Distribution Width-SD 44.2 fL; White Blood Count 5.9 K/mm3 (4.8-10.8)
[2025-04-18 18:49] LABS: Alanine Aminotransferase 18 U/L (12-78); Albumin Level 4.3 g/dl (3.5-5.0); Aspartate Amino Transferase 27 U/L (17-59); Blood Urea Nitrogen 13 mg/dl (9-20); Carbon Dioxide 31 mmol/L (22.0-30.0); Chloride 104 mmol/L (98-107); Creatinine Clearance Estimated 89 mL/min (50-200); Creatinine,Serum 1.00 mg/dl (0.66-1.25); Estimated Glomerular Filt Rate 75 ml/min (>60); GFR (African American) 91 ML/MIN (>60); Glucose 135 mg/dl (74-100); Potassium 3.9 mmoL/L (3.5-5.1)
[2025-04-18] MEDS: MORPHINE 4MG/ML SYRINGE 4 MG IV (18:56)
[2025-04-18] MEDS: ONDANSETRON 4MG/2ML VIAL 4 MG IV (18:56)
[2025-04-18 19:03] LABS: Albumin/Globulin Ratio 1.4 (1.1-1.8); Alkaline Phosphatase 88 U/L (38-126); Anion Gap 8.9 mEq/L (5-15); Bilirubin,Total 0.8 mg/dl (0.2-1.3); Calcium 9.0 mg/dl (8.4-10.2); Globulin 3.0 g/dL (1.3-3.2); Lipase 70 U/L (23-300); Sodium 140 mmol/L (136-145); Total Protein,Serum 7.3 g/dl (6.3-8.2)
[2025-04-18 19:19] LABS: Bacteria,Urine Trace /lpf; Squamous Epithelial Cell,Urine Occasional #/hpf (0-5); WBC,Urine Occasional #/hpf (0-3)
[2025-04-18] MEDS: IOPAMIDOL-370 (76%);100ML BOTTLE 75 ML IV (19:33)
[2025-04-18] MEDS: SODIUM CHLORIDE 0.9% 10ML SYR (RAD ONLY) 10 ML IV (19:33)
[2025-04-18] MEDS: AMOXICILLIN/CLAVULANATE POTASSIUM 875/125MG TABLET 1 EACH PO (21:27)
== END 2025-04-18 21:36 | disposition home or self-care (01) ==
PROVIDERS: Emergency Provider Student in an Organized Health Care Education/Training Program; PCP Nurse Practitioner
DX: R10.32 Left lower quadrant pain (principal); K57.92 Diverticulitis of intestine, part unspecified, without perforation or abscess without bleeding; E78.5 Hyperlipidemia, unspecified; I10 Essential (primary) hypertension; K21.9 Gastro-esophageal reflux disease without esophagitis
CPT/HCPCS: 74177; 80053; 81001; 83605; 83690; 85025; 87086; 96374; 96375; 99285; J2270; J2405; Q9967

== ENCOUNTER 2025-07-07 10:39 | Emergency (ER) | payer MEDICARE, MEDICAID, SELFPAY ==
--- OUTSIDE RECORDS SUMMARY | 2025-05-13 07:11 | XMS_ITS | Encounter Summary ---
Author Organization Healthcare Address [address] [place] [address] Care Team Providers Care Hairspring Assembler Name Role Phone Asael Bolden MD Unavailable [phone] Anup Ronquillo MD Unavailable [phone] Consuelo Segundo APRN Primary Care Provider [phone] Encounter Details Date Type Department Care Team (Latest Contact Info) Description 05/13/2025 8:11 AM EDT - 05/13/2025 11:59 PM EDT [facility] [address], [address] [place] [address] Degeneration of intervertebral disc of lumbar region with discogenic back pain and lower extremity pain; Low back pain, unspecified back pain laterality, unspecified chronicity, unspecified whether sciatica present Discharge Disposition: Home or Self Care Social History Tobacco Use Types Packs/Day Years [...] on file documented as of this encounter Medications at Time of Discharge Accu-Chek Guide test strip USE TO TEST ONCE DAILY. 10/27/2021 Accu-Chek Softclix Lancets lancets USE DIRECTED ONCE DIALY. 10/27/2021 amantadine (Symmetrel) 100 MG capsule TAKE ONE (1) CAPSULE BY MOUTH DAILY FOR TREMORS amLODIPine (Norvasc) 5 MG tablet Take 1 tablet (5 mg) by mouth 1 (one) time each day. 02/28/2021 Apriso 0.375 g 24 hr capsule take 4 capsules by mouth every day 02/23/2025 Blood Glucose Monitoring Suppl (Accu-Chek Guide Me) w/Device kit 10/27/2021 colestipol (Colestid) 1 g tablet Take 1 tablet by mouth 2 times a day. divalproex (Depakote ER) 500 MG 24 hr tablet TAKE ONE (1) TABLET BY MOUTH EVERY MORNING AND TWO (2) TABLETS AT BEDTIME 03/02/2021 esomeprazole (NexIUM) [address] capsule Take by mouth 2 (two) times a day. 02/28/2021 gabapentin (Neurontin) 600 MG tablet Take 1 tablet (600 mg) by mouth 3 (three) times a day. 06/02/2023 ibuprofen 800 MG tablet Take 1 tablet by mouth 3 times a day. ondansetron (Zofran) 4 MG tablet TAKE 1 TABLET BY MOUTH 4 TIMES DAILY NEEDED FOR NAUSEA AND VOMITING 01/22/2021 primidone (Mysoline) 250 MG tablet Take 250 mg by mouth 1 (one) time each day. 12/12/2020 promethazine (Phenergan) 25 MG tablet TAKE 1 TABLET EVERY 6-8 HOURS NEEDED. 02/20/2021 propranolol (Inderal) 10 MG tablet TAKE 1 TABLET BY MOUTH TWICE DAILY for tremors 04/03/2025 rOPINIRole (Requip) 2 MG tablet Take 1 tablet by mouth nightly. 11/10/2024 SUMAtriptan (Imitrex) 100 MG tablet TAKE 1 TABLET AT ONSET OF MIGRAINE HEADACHE. MAY REPEAT IN 2 HOURS IF NEEDED. DO NOT EXCEED 2 TABLETS IN 24 HOURS 04/01/2021 tamsulosin (Flomax) 0.4 MG 24 hr capsule Take 0.4 mg by mouth 1 (one) time each day. 01/29/2021 documented as of this encounter Plan of Treatment Upcoming Encounters Date Type Department Care Team (Late st Contact Info) Description 07/24/2025 1:00 PM EST Office Visit [facility] Interventional Pain Medicine [facility] [place] [address] Richard Taylor MD [address] [facility] [address] [place] [phone] documented as of this encounter Procedures Procedure Name Priority Date/Time Associated Diagnosis Comments XR LUMBAR SPINE 2 OR 3 VIEWS Routine 05/13/2025 8:26 AM EDT Degeneration of intervertebral disc of lumbar region with discogenic back pain and lower extremity pain Low back pain, unspecified back pain laterality, unspecified chronicity, unspecified whether sciatica present documented in this encounter Results * XR Lumbar Spine 2 or 3 Views (05/13/2025 8:26 AM EDT) Anatomical Region Laterality Modality Spine, L-spine Digital Radiogra phy Impressions 05/13/2025 8:54 AM EDT Redemonstration of upper lumbar discogenic disease. No malalignment or abnormal motion of the lumbar spine. CRITICAL RESULT: No. COMMUNICATION: Per this written report. Drafted by Jarred Smith MD on 05/13/2025 8:53 AM Final report signed by Jarred Smith MD on 05/13/2025 8:54 AM Narrative 05/13/2025 8:54 AM EDT CLINICAL INDICATION: scoliosis TECHNIQUE: XR SCOLIOSIS ENTIRE SPINE 2 OR 3 VIEWS, XR LUMBAR SPINE 2 OR 3 VIEWS COMPARISON: 07/11/2023 FINDINGS: The imaged lungs are clear. Mild to moderate glenohumeral joint osteoarthrosis is seen bilaterally. Cholecystectomy clips. Right total hip arthroplasty. Overlying soft tissue, stool, bowel gas limits evaluation of the lumbar spine and pelvis. Straightening of cervical lordosis. Suboptimal evaluation of cervicothoracic junction on lateral view. Redemonstration of loss of height of C5. Mild upper and mid thoracic spine disc space narrowing with anterior osteophytosis. Lumbar spine flexion and extension views demonstrate continued disc space narrowing at L1-2 and L2-3. No abnormal motion. Lower lumbar facet arthrosis. Procedure Note Jarred Smith MD - 05/13/2025 CLINICAL INDICATION: scoliosis TECHNIQUE: XR SCOLIOSIS ENTIRE SPINE 2 OR 3 VIEWS, XR LUMBAR SPINE 2 OR 3 VIEWS COMPARISON: 07/11/2023 FINDINGS: The imaged lungs are clear. Mild to moderate glenohumeral jointosteoarthrosis is seen bilaterally. Cholecystectomy clips. Right total hiparthroplasty. Overlying soft tissue, stool, bowel gas limits evaluation ofthe lumbar spine and pelvis. Straightening of cervical lordosis.Suboptimal evaluation of cervicothoracic junction on lateral view.Redemonstration of loss of height of C5. Mild upper and mid thoracic spinedisc space narrowing with anterior osteophytosis. Lumbar spine flexion and extension views demonstrate continued disc spacenarrowing at L1-2 and L2-3. No abnormal motion. Lower lumbar facetarthrosis. IMPRESSION: Redemonstration of upper lumbar discogenic disease. No malalignment or abnormal motion of the lumbar spine. CRITICAL RESULT: No. COMMUNICATION: Per this written report. Drafted by Jarred Smith MD on 05/13/2025 8:53 AM Final report signed by Jarred Smith MD on 05/13/2025 8:54 AM Alyssa TAPIA IMG XR PROCEDURES Final Result documented in this encounter Visit Diagnoses Diagnosis Degeneration of intervertebral disc of lumbar region with discogenic back pain and lower extremity pain Low back pain, unspecified back pain laterality, unspecified chronicity, unspecified whether sciatica present documented in this encounter Additional Health Concerns Assessment Noted Time A fall risk assessment has been complete d for the patient 07/11/2023 12:00 PM EST A Body Mass Index follow-up plan has been documented for the patient 05/14/2025 11:13 AM EDT documented as of this encounter Care Teams Hairspring Assembler Relationship Specialty Start Date End Date Consuelo Segundo APRN [address] [place] [address] PCP - General 07/11/23 Asael Bolden MD [address] [place] [address] Surgeon Neurosurgery 03/16/21 Anup Ronquillo MD [address] [place] [address] Consulting Physician Neurology 10/19/21 documented as of this encounter
--- OUTSIDE RECORDS SUMMARY | 2025-05-13 07:11 | XMS_ITS | Encounter Summary ---
Author Organization Healthcare Address [address] [place] [address] Care Team Providers Care Director It Project Name Role Phone Asael Bolden MD Unavailable [phone] Anup Ronquillo MD Unavailable [phone] Consuelo Segundo APRN Primary Care Provider [phone] Encounter Details Date Type Department Care Team (Latest Contact Info) Description 05/13/2025 8:11 AM EDT - 05/13/2025 11:59 PM EDT Hospital Encounter [facility] Rad[facility] [address], [address] [place] [address] Degeneration of intervertebral disc of [...] Description 07/24/2025 1:00 PM EST Office Visit [facility] Interventional Pain Medicine [facility] [place] [address] Richard Taylor MD [address] [facility] [address] [place] [phone] documented as of this encounter Procedures Procedure Name Priority Date/Time Associated Diagnosis Comments XR SCOLIOSIS ENTIRE SPINE 2 OR 3 VIEWS Routine 05/13/2025 8:37 AM EDT Degeneration of intervertebral disc of lumbar region with discogenic back pain and lower extremity pain Low back pain, unspecified back pain laterality, unspecified chronicity, unspecified whether sciatica present documented in this encounter Results * XR Scoliosis Entire Spine 2 or 3 Views (05/13/2025 8:37 AM EDT) Anatomical Region Laterality Modality Spine Digital Radiogra phy Impressions 05/13/2025 8:54 AM [...] documented as of this encounter Care Teams Director It Project Relationship Specialty Start Date End Date Consuelo Segundo APRN [address] [place] [address] PCP - General 07/11/23 Asael Bolden MD [address] [place] [address] Surgeon Neurosurgery 03/16/21 Anup Ronquillo MD [address] [place] [address] Consulting Physician Neurology 10/19/21 documented as of this encounter
--- OUTSIDE RECORDS SUMMARY | 2025-05-13 08:00 | XMS_ITS | Encounter Summary ---
Author Organization [facility] Address [address] [place] [address] Care Team Providers Care Coil Winder Hand Name Role Phone Asael Bolden MD Unavailable [phone] Anpu Ronquillo MD Unavailable [phone] Consuelo Segundo APRN Primary Care Provider [phone] Reason for Referral * Consultation (Routine) - Closed Specialty Diagnoses / Procedures Referred By Contac t Referred To Contact Pain Medicine Diagnoses Degeneration of intervertebral disc of lumbar region with discogenic back pain and lower extremity pain Low back pain, unspecified back pain laterality, unspecified chronicity, unspecified whether sciatica present Michelle Foss APRN [address] [place] [address] Phone: tel: fax: [facility] Interventional Pain Medicine [address] [place] [address] Phone: tel: fax: Referral ID Status Reason Start Date Expiration Date V isits Requested Visits Authorized [id number] Closed Specialty Services Required 05/13/2025 11/12/2026 1 1 Scheduling Instructions Consideration of L1-2 injection Reason for Visit * Consultation (Routine) - Closed Specialty Diagnoses / Procedures Referred By Contac t Referred To Contact Neurosurgery Diagnoses Unspecified thoracic, thoracolumbar and lumbosacral intervertebral disc disorder Consuelo Segundo APRN [address] [place] [address] Phone: tel: fax: [facility] [address] [place] [address] Phone: tel: fax: Referral ID Status Reason Start Date Expiration Date V isits Requested Visits Authorized [id number] Closed Specialty Services Required 04/12/2025 10/12/2026 1 1 Encounter Details Date Type Department Care Team (Late st Contact Info) Description 05/13/2025 9:00 AM EDT Consult [facility] [address] [place] [address] Asael Bolden MD [address] [place] [address] Degeneration of intervertebral disc of lumbar region with discogenic back pain and lower extremity pain (Primary Dx); Low back pain, unspecified back pain laterality, unspecified chronicity, unspecified whether sciatica present Social History Tobacco Use Types Packs/Day Years [...] on file documented as of this encounter Last Filed Vital Signs Vital Sign Reading Time Taken Comments Blood Pressure 118/67 05/13/2025 8:49 AM EDT Pulse 57 05/13/2025 8:49 AM EDT Temperature - - Respiratory Rate - - Oxygen Saturation 96% 05/13/2025 8:49 AM EDT Inhaled Oxygen Concentration - - Weight 88.5 kg (195 lb 1.7 oz) 05/13/2025 8:49 A M EDT Height - - Body Mass Index 31.49 07/11/2023 12:00 PM EST documented in this encounter Miscellaneous Notes * Progress Notes - Michelle Foss, DIGITAL STRATEGIST SENIOR MANAGER - 05/13/2025 9:00 AM EDT We had the pleasure of seeing your patient in our clinic today for continued Neurosurgical evaluation. Verbal consent was obtained to use ambient listening technology to assist in the documentation of the encounter: yes Chief Complaint: Low back pain History Of Present Illness Rosendo Mata is a 65 y.o. male presents to the neurosurgical clinic today for follow-up regarding low back pain. History of Present Illness The patient presents for back pain. The patient was last evaluated in the neurosurgical clinic in 2022, at which time surgical intervention was discussed with the patient for a calcified L1-2 LLIF. At that time, the patient was complaining of low back pain that has been refractory to multiple conservative treatments; however, he did not undergo any surgical intervention. He contacted the neurosurgical clinic as he was having increasingly worsening low back complaints. He presents today with a new MRI. He reports that he has low back and bilateral lower extremity complaints, right greater than left. He reports it will go anteriorly to the mid lugo. He notes numbness and tingling mostly in the bilateral anterior thighs. The patient does note weakness in the bilateral lower extremities. The patient is unable to walk more than a block without having to stop due to pain. He reports his back pain is worse than leg pain. Positive shopping cart sign. He does note over the last couple of months, he has had some episodes of bladder incontinence, denies any bowel incontinence. Denies any saddle anesthesia. The patient states that 6-7 months ago, he did 6 weeks of physical therapy without appreciable benefit. He then followed up with body care manager, where he was released 3 months ago as it did not give him any benefit. The patient has not had any recent epidural steroid injections. He denies any heart, lung, kidney issues. The patient is a nonsmoker. The patient is diabetic, last hemoglobin A1c was 6.4%. He does take ibuprofen with slight benefit in symptoms. Past Medical History[1] Surgical History[2] Family History[3] Social History[4] Current Outpatient Medications Medication Instructions Accu-Chek Guide test strip USE TO TEST ONCE DAILY. Accu-Chek Softclix Lancets lancets USE DIRECTED ONCE DIALY. amantadine (Symmetrel) 100 MG capsule TAKE ONE (1) CAPSULE BY MOUTH DAILY FOR TREMORS amLODIPine (NORVASC) 5 mg, Daily Apriso 0.375 g 24 hr capsule take 4 capsules by mouth every day Blood Glucose Monitoring Suppl (Accu-Chek Guide Me) w/Device kit No dose, route, or frequency recorded. colestipol (COLESTID) 1 g, 2 times daily divalproex (Depakote ER) 500 MG 24 hr tablet TAKE ONE (1) TABLET BY MOUTH EVERY MORNING AND TWO (2)TABLETS AT BEDTIME esomeprazole (NexIUM) [address] capsule ZZ 2 times daily RT gabapentin (NEURONTIN) 600 mg, 3 times daily ibuprofen 800 mg, 3 times daily ondansetron (Zofran) 4 MG tablet TAKE 1 TABLET BY MOUTH 4 TIMES DAILY NEEDED FOR NAUSEA AND VOMITING primidone (MYSOLINE) 250 mg, Daily promethazine (Phenergan) 25 MG tablet TAKE 1 TABLET EVERY 6-8 HOURS NEEDED. propranolol (Inderal) 10 MG tablet TAKE 1 TABLET BY MOUTH TWICE DAILY for tremors rOPINIRole (REQUIP) 2 mg, Nightly SUMAtriptan (Imitrex) 100 MG tablet TAKE 1 TABLET AT ONSET OF MIGRAINE HEADACHE. MAY REPEAT IN 2 HOURS IF NEEDED. DO NOT EXCEED 2 TABLETS IN 24 HOURS tamsulosin (FLOMAX) 0.4 mg, Daily Allergies Baclofen, Atorvastatin, Aztreonam, Gabapentin, Latex, Levofloxacin, [place], Metronidazole, Mometasone, Mometasone furoate, Montelukast, Prednisolone, Prednisone, and Topiramate Objective Review of Systems 14 point review of systems was performed and was negative except as noted per HPI. Visit Vitals BP 118/67 Pulse 57 Wt 88.5 kg (195 lb 1.7 oz) SpO2 96% BMI 31.49 kg/m?? Smoking Status Never BSA 2.03 m?? Physical Exam Neurologic exam: Alert and oriented x3. Appropriate memory, attention span, and insight. Normal coordination noted. Strength 5/5 bilaterally in upper and lower extremities. No tremor noted. Biceps, triceps, brachioradialis, patellar, achilles reflexes symmetric and 2+ bilaterally. Sensation, including light touch, intact bilaterally. Negative Lisa's bilaterally. No clonus noted bilaterally. Negative straight leg raise test bilaterally. Positive Sathya's test on the right, negative Sathya's test on the left. Results Imaging I personally reviewed and independently interpreted MRI of the lumbar spine from April 03, 2025. Imaging continues to demonstrate an L1-2 calcified lumbar disc without significant nerve compression;however, central canal stenosis eccentric to the right. Assessment and Plan Elliot Mata is a 65 y.o. male presents to the neurosurgical clinic today for follow-up regarding low back pain. Assessment & Plan Imaging was reviewed and is noted above. The patient's imaging continues to demonstrate an L1-2 calcified disc with central canal stenosis. However, symptoms do not completely correlate with a radiculopathy consistent with imaging findings. We have made a referral to interventional pain for potential L1-2 injection, for both diagnostic and therapeutic purposes. We will have him follow up in 8 weeks [address] clinic with Dr. Bolden after the injection to see if this is beneficial for the patient. The patient was given the opportunity to ask questions all of which were answered to their satisfaction and is agreeable to the plan of care. This note was dictated using voice to text software and may contain minor errors I personally examined and reviewed patient's history along with Dr. Bolden, the plan of care was discussed and guided by Dr. Bolden. Patient was agreeable with this plan. They were given the opportunity to ask questions, which were answered to their satisfaction. They were informed to to contact the Neurosurgery clinic with any questions, concerns, or worsening symptoms. Patient specific comorbidities further complicating management during the perioperative period include: None I personally spent a total of 35 minutes on this encounter. This time includes face to face with patient, and review of imaging, counseling and discussion and/or coordination of care. Parts of this note were dictated using [employer] Direct voice recognition software. As a result, errors may occur. When identified, these route returner errors are corrected, but while every attempt is made to prevent/correct these, errors may still exist. Michelle Foss APRN [facility] Department of Neurosurgery Diagnoses and all orders for this visit: Degeneration of intervertebral disc of lumbar region with discogenic back pain and lower extremity pain (Primary) - XR Scoliosis Entire Spine 2 or 3 Views; Future - XR Lumbar Spine 2 or 3 Views; Future - Ambulatory referral to Interventional Pain; Future Low back pain, unspecified back pain laterality, unspecified chronicity, unspecified whether sciatica present - XR Scoliosis Entire Spine 2 or 3 Views; Future - XR Lumbar Spine 2 or 3 Views; Future - Ambulatory referral to Interventional Pain; Future Other orders - Ambulatory referral to Neurosurgery [1] Past Medical History: Diagnosis Date Anxiety disorder, unspecified Anxiety Arthritis Diabetes HBP (high blood pressure) Personal history of other diseases of the digestive system History of esophageal reflux Personal history of other mental and behavioral disorders History of depression Personal history of urinary calculi History of renal calculi [2] Past Surgical History: Procedure Laterality Date ARM AMPUTATION AT [facility] GALLBLADDER SURGERY N/A Gallbladder Surgery from [employer] [facility] ARTHROPLASTY Right [3] Family History Problem Relation Name Age of Onset Heart failure Father Cirrhosis Sister Breast cancer Mother [4] Social History Tobacco Use Smoking status: Never Smokeless tobacco: Former Types: Chew Quit date: 1979 Vaping Use Vaping status: Never Used Substance Use Topics Alcohol use: No Drug use: Never Comment: Drug use: No drug use Cosigned by Asael Bolden MD at 05/14/2025 11:13 AM EDT Associated attestation - Asael Bolden MD - 05/14/2025 11:13 AM EDT Signature only. I saw and examined the patient with the HEMAL. I agree with the assessment and plan. A substantive portion of care was provided by the HEMAL. documented in this encounter Plan of Treatment Upcoming Encounters Date Type Department Care Team (Late st Contact Info) Description 07/24/2025 1:00 PM EST Office Visit [facility] Interventional Pain Medicine [address] [place] [address] Richard Taylor MD [address] [facility] [address] [place] [address] Scheduled Referrals Name Type Priority Associated Diagnoses Orde r Schedule Ambulatory referral to Interventional Pain Outpatient Referral Routine Degeneration of intervertebral disc of lumbar region with discogenic back pain and lower extremity pain Low back pain, unspecified back pain laterality, unspecified chronicity, unspecified whether sciatica present Expected: 06/13/2025, Expires: 11/14/2026 documented as of this encounter Results * XR Scoliosis Entire [...] Alyssa TAPIA IMG XR PROCEDURES Final Result * XR Lumbar Spine 2 or 3 [...] with discogenic back pain and lower extremity pain- Primary Low back pain, unspecified back pain laterality, unspecified chronicity, unspecified whether sciatica present Degeneration of intervertebral disc of lumbar region with discogenic back pain and lower extremity pain Low back pain, unspecified back pain laterality, unspecified chronicity, unspecified whether sciatica present Degeneration of intervertebral disc of lumbar region [...] documented as of this encounter Care Teams Coil Winder Hand Relationship Specialty Start Date End Date Consuelo Segundo APRN [address] [place] [address] PCP - General 07/11/23 Asael Bolden MD [address] [place] [address] Surgeon Neurosurgery 03/16/21 Anup Ronquillo MD [address] [place] [address] Consulting Physician Neurology 10/19/21 documented as of this encounter
--- OUTSIDE RECORDS SUMMARY | 2025-05-17 09:00 | XMS_ITS | Encounter Summary ---
Author Organization [facility] Address [address] [place] [address] Care Team Providers Care Athletic Monitor Name Role Phone Asael Bolden MD Unavailable [phone] Anup Ronquillo MD Unavailable [phone] Consuelo Segundo APRN Primary Care Provider + [phone] Reason for Referral * Other Medical (Routine) - Closed Specialty Diagnoses / Procedures Referred By Contac t Referred To Contact Pain Medicine Diagnoses Lumbar radiculopathy Procedures Interlaminer Epidural - Lumbar / Sacral Interlaminer Epidural - Lumbar / Sacral Richard Taylor MD [address] [facility] [address] [place] [address] Phone: tel: fax: [facility] Interventional Pain Medicine [address] [place] [address] Phone: tel: fax: Referral ID Status Reason Start Date Expiration Date Visits Re quested Visits Authorized [id number] Closed 05/17/2025 11/16/2026 1 1 Reason for Visit * Reason Comments Consult * Consultation (Routine) - Closed Specialty Diagnoses / Procedures Referred By Contac t Referred To Contact Pain Medicine Diagnoses Degeneration of intervertebral disc of lumbar region with discogenic back pain and lower extremity pain Low back pain, unspecified back pain laterality, unspecified chronicity, unspecified whether sciatica present Michelle Foss, SPINNING FRAME CHANGER [address] [place] [address] Phone: tel: fax: [facility] Interventional Pain Medicine [address] [place] [address] Phone: tel: fax: Referral ID Status Reason Start Date Expiration Date V isits Requested Visits Authorized [id number] Closed Specialty Services Required 05/13/2025 11/12/2026 1 1 Encounter Details Date Type Department Care Team (Late st Contact Info) Description 05/17/2025 10:00 AM EDT Office Visit [facility] Interventional Pain Medicine [address] [place] [address] Richard Taylor MD [address] [facility] [address] [place] [address] Lumbar radiculopathy (Primary Dx) Social History Tobacco Use Types [...] Sign Reading Time Taken Comments Blood Pressure 125/75 05/17/2025 9:12 AM EDT Pulse 54 05/17/2025 9:12 AM EDT Temperature 36.7 C (98 F) 05/17/2025 9:12 AM EDT Respiratory Rate 18 05/17/2025 9:12 AM EDT Oxygen Saturation 96% 05/17/2025 9:12 AM EDT Inhaled Oxygen Concentration - - Weight 88 kg (194 lb) 05/17/2025 9:12 AM EDT Height 167.6 cm (5' 6 ) 05/17/2025 9:12 AM EDT Body Mass Index 31.31 05/17/2025 9:12 AM EDT documented in this encounter Miscellaneous Notes * Progress Notes - Richard Taylor MD - 05/17/2025 10:00 AM EDT Images from the original note were not included. Interventional Pain Medicine New Patient Note Subjective: Referring Physician: Michelle Foss, SPINNING FRAME CHANGER [address] [place] [address] Record Review: I personally reviewed NS records Chief Complaint: Consult History of Present Illness: Elliot Mata is a 65 y.o. male with PMHx of Medical History[1] Presents with: Site: low back pain Severity: 02/14 Onset: years Descriptors: constant dull, legs numb Aggravating Factors: standing Relieving Factors: nothing Associated Symptoms: numb & weak Current Disabilities: limitations in ADLs/IADLs Functional Goals of Treatment: improvement in function Global Pain Score: reviewed PHQ9: reviewed Current Medication: Current Pain Medications divalproex (Depakote ER) 500 MG 24 hr tablet TAKE ONE (1) TABLET BY MOUTH EVERY MORNING AND TWO (2)TABLETS AT BEDTIME gabapentin (Neurontin) 600 MG tablet Take 1 tablet (600 mg) by mouth 3 (three) times a day. ibuprofen 800 MG tablet Take 1 tablet by mouth 3 times a day. primidone (Mysoline) 250 MG tablet Take 250 mg by mouth 1 (one) time each day. sertraline (Zoloft) 50 MG tablet Previous Pain Medications: NSAID Previous Non-Interventional Treatment: PT 6 weeks - helped for a little while Heat Previous Interventions/Consults: Epidurals and RFA- 5 years [place] Other Medical History reports that he has never smoked. He quit smokeless tobacco use about 45 years ago. His smokeless tobacco use included chew. Diabetes: NA A1C: No results found for: HGBA1C Anticoagulation: Work Status/Pain related to work injury: NA Review of Systems: CONSTITUTIONAL: denies fevers, chills HEENT: denies swallowing difficulties, sore throat CARDIOVASCULAR: denies chest pain, palpitations, syncope RESPIRATORY: denies shortness of breath, cough, wheezing GI: denies change in bowel habits, nausea, vomiting : denies change in bladder function, frequency, dysuria SKIN: denies rash, skin changes MSK: Per HPI NEURO: Per HPI PSYCH: Per HPI General Physical Exam: Constitutional Appears well-developed and well-nourished Neurological Alert and oriented to person, place, and time Psychiatric Normal mood and affect, behavior and judgment Head Normocephalic and atraumatic. Eyes Pupils are equal, round, and reactive to light. Neck Neck supple Cardiovascular Minimal to no peripheral edema, intact distal pulses Pulmonary/Chest Effort normal, no shortness of breath noted Skin Skin is warm and dry Neurologic & Musculoskeletal Exam Lumbar Region Exam Right (+/-) Left (+/-) Lumbar Musculature Tender w/ palpation - - Posterior Column Pain w/ extension + + Anterior Column Pain w/ Flexion + + Sensation Right Left L2: Proximal anterior thigh normal normal L3: Mid anterior thigh normal normal L4: Medial leg/foot, great toe (Saphenous n.) normal normal L5: Dorsum of mid foot normal normal S1: Lateral leg/foot, little toe, Back of leg (Sural n.) normal normal Motor Strength Right Left L2: Hip flexion (Iliopsoas) 12/10 12/10 L3: Knee extension (Quad) 12/10 12/10 L4: Ankle DF (TA) 12/10 12/10 L5: Great Toe DF (EHL) 12/10 12/10 S1: Ankle PF, Foot Eversion (Peroneal longus/brevis) 12/10 12/10 S2: Great toe flexion (FHL), Knee Flexion 12/10 12/10 Reflexes Right Left L4: Patellar 2/4 2/4 S1: Achilles 2/4 2/4 Babinski Absent Absent Clonus Absent Absent SLR - - Crossed SLR - - Slump - - Sacroiliac Joint Exam Right Left Gt's Finger (PSIS) - - BLANCA - - Gaenslen's - - Compression - - Distraction - - Imaging: Images of the following studies have been personally reviewed and my independent interpretation reveals as written: April 06, 2025 lumbar spine MRI There is an L1-2 lumbar disc which does have central canal narrowing and maybe a mild degree of foraminal Narrowing. There is also L5-S1 Modic changes around a disc that is lost hydration as well as some inferior endplate Modic change at L4 Labs: Lab Results Component Value Date PLT 223 05/03/2018 No results found for: INR , PROTIME Assessment & Plan Elliot Mata is a 65 y.o. male predominantly back pain although has complaints of leg pain and somenumbness. His MRI has a large L1-2 disc it is reasonable to try diagnostic epidural injection at this level to see if this changes his pain in any way. On physical exam he has more pain on forward flexion and in review of MRI there is Modic changes. He has also had a lumbar radiofrequency ablation which was not helpful therefore this may very well point more towards a vertebral genic source of his low back pain 1. Lumbar radiculitis-chronic worsening - Recommend diagnostic L1-2 epidural 2. Vertebral genic low back pain-chronic worsening - Failed lumbar radiofrequency ablation of the lumbar medial branches - Modic change at L4-L5 and S1 on new MRI - Consider basilar vertebral nerve ablation at L4, L5 and S1 if not helpful and in discussion with our neurosurgical colleagues [1] Past Medical History: Diagnosis Date Anxiety disorder, unspecified Anxiety Arthritis Diabetes HBP (high blood pressure) Personal history of other diseases of the digestive system History of esophageal reflux Personal history of other mental and behavioral disorders History of depression Personal history of urinary calculi History of renal calculi documented in this encounter Plan of Treatment Upcoming Encounters Date Type Department Care Team (Late st Contact Info) Description 07/24/2025 1:00 PM EST Office Visit [facility] Interventional Pain Medicine [address] [place] [address] Richard Taylor MD [address] [facility] [address] [place] [address] documented as of this encounter Results * [place] NJX DX/THER SBST INTRLMNR LMBR/SAC W/IMG GDN (05/27/2025 1:30 PM EDT) Narrative Richard Taylor MD - 05/27/2025 1:30 PM EDT Richard Taylor MD 05/28/2025 7:09 AM Interlaminer Epidural - Lumbar / Sacral Performed by: Eliel Brannon DO Authorized by: Richard Taylor MD Richard Taylor MD IN CLINIC/BEDSIDE ORDERABLES Final Result documented in this encounter Visit Diagnoses Diagnosis Lumbar radiculopathy- Primary Thoracic or lumbosacral neuritis or radiculitis, unspecified Lumbar radiculopathy Thoracic or lumbosacral neuritis or radiculitis, unspecified documented in this encounter Additional Health Concerns Assessment Noted Time A fall risk assessment has been complete d for the patient 05/17/2025 9:12 AM EDT A Body Mass Index follow-up plan has been documented for the patient 05/17/2025 9:35 AM EDT documented as of this encounter Care Teams Athletic Monitor Relationship Specialty Start Date End Date Consuelo Segundo APRN [address] [place] [address] PCP - General 07/11/23 Asael Bolden MD [address] [place] [id number] Surgeon Neurosurgery 03/16/21 Anup Ronquillo MD [address] [place] [id number] Consulting Physician Neurology 10/19/21 documented as of this encounter
--- OUTSIDE RECORDS SUMMARY | 2025-05-27 12:30 | XMS_ITS | Encounter Summary ---
Author Organization [facility] Address [address] [place] [address] Care Team Providers Care Vacuum Cleaner Mechanic Name Role Phone Asael Bolden MD Unavailable [phone] Anup Ronquillo MD Unavailable [phone] Consuelo Segundo APRN Primary Care Provider + [phone] Reason for Visit * Reason Comments Injections * Other Medical (Routine) - Closed Specialty Diagnoses / Procedures Referred By Contac t Referred To Contact Pain Medicine Diagnoses Lumbar radiculopathy Procedures Interlaminer Epidural - Lumbar / Sacral Interlaminer Epidural - Lumbar / Sacral Richard Taylor MD [address] [address] Phone: tel: fax: [facility] Interventional Pain Medicine [address] [place] [address] Phone: tel: fax: Referral ID Status Reason Start Date Expiration Date Visits Re quested Visits Authorized [id number] Closed 05/17/2025 11/16/2026 1 1 Encounter Details Date Type Department Care Team (Late st Contact Info) Description 05/27/2025 1:30 PM EDT Procedure Visit [facility] Interventional Pain Medicine [address] [place], [place] [phone] Richard Taylor MD [address] [address] Lumbar radiculopathy Social History Tobacco Use Types Packs/Day Years [...] Sign Reading Time Taken Comments Blood Pressure 119/74 05/27/2025 1:59 PM EDT Pulse 51 05/27/2025 1:59 PM EDT Temperature 36.6 C (97.8 F) 05/27/2025 1:06 PM EDT Respiratory Rate 16 05/27/2025 1:59 PM EDT Oxygen Saturation 95% 05/27/2025 1:59 PM EDT Inhaled Oxygen Concentration - - Weight - - Height 167.6 cm (5' 6 ) 05/27/2025 1:06 PM EDT Body Mass Index - - documented in this encounter Miscellaneous Notes * Clinician Note - Elva Quiñones RN - 05/27/2025 1:30 PM EDTAssociated Order(s): Interventional Pain Nurse Procedure Protocol Interventional Pain Nurse Procedure Protocol Documentation: Indications: Documentation supporting primary procedure completed by : Richard Taylor MD See the provider procedure note for performed procedure details and findings. Pre-Procedure Checklist: Currently taking anticoagulant(s)?: no Technical Maintenance Specialist present?: no Additional Pre-Procedure Comments: JAZMIN Pa timeout was called immediately prior to the procedure, in accordance with [employer] policy @ 1027 Procedure details: Procedure start time:: 05/27/2025 1:48 PM Procedure end time:: 05/27/2025 1:51 PM Guidance used (if applicable): fluoro Total amount of contrast dye (mGy): 2.25 Fluoro time: 14 seconds Moderate conscious sedation used?: no Post-procedure details: Orientation at discharge?: Normal to time, normal to place, normal to person, normal to situation and completely oriented Mood and Affect normal?: yes Discharged to: home Mode of exit: Walked (@ 1403; had mild vasovagal at end of procedure, returned to postop via stretcher for safety, recovered quickly and without incident.) Attendance: Constant attendance by certified staff until patient recovered Recovery: Patient returned to pre-procedure baseline Estimated blood loss (see I/O flowsheets): no Specimens recovered: None Patient is stable for discharge or admission: yes Procedure completion: Tolerated well, no immediate complications * Progress Notes - Eliel Brannon DO - 05/27/2025 1:30 PM EDTAssociated Order(s): Interlaminer Epidural - Lumbar / Sacral Pre-Procedure Diagnose(s): Lumbar radiculopathy Post-Procedure Diagnose(s): Lumbar radiculopathy Patient ID: Elliot Mata is a 65 y.o. male. Encounter Diagnosis Name Primary? Lumbar radiculopathy Patient seen and evaluated prior to their procedure.There is nothing in the patient's overall condition that would affect the planned course of the patient's treatment today that requires additional interventions to reduce risk to the patient. Interlaminer Epidural - Lumbar / Sacral Performed by: Eliel Brannon DO Authorized by: Richard Taylor MD Procedure(s): L1-L2 Lumbar Interlaminar Epidural Steroid injection Anesthesia Type: local only Complications: none Follow-up Plan: Clinic follow up as scheduled Procedure: This patient was seen earlier for a comprehensive evaluation of their painful condition.After discussing treatment options, the patient elected to proceed with a lumbar interlaminar epidural steroid injection. Written, informed consent was obtained before the start of the procedure. Thepatient's history of present illness, past medical history (including current medications and allerg ies), and physical examination were reviewed with the patient immediately before the procedure, andit was confirmed directly with the patient that they desired to proceed. The patient ambulated to the operating room and was placed in the prone position with pressure points padded. A time out was performed, confirming the patient's identification, allergy status, the side(s) of the procedure, and the procedure(s) to be performed. All operators were wearing hats, masksand sterile gloves. The patient underwent ChloraPrep skin prep followed by sterile drape. The interlaminar space was then identified by fluoroscopy and marked. The patient received 1% lidocaine for local anesthesia subcutaneously. An 20-gauge 9 cm Tuohy needle was then advanced under fluoroscopic guidance using a coaxial approach, loss of resistance to saline until the epidural space was entered. After negative aspiration, under live fluoroscopy in the anterior-posterior position, 1 mL of contrast solution was injected. This demonstrated appropriate epidural spread and was negative for intravascular or intrathecal flow. After confirmation of proper positioning of the needle within the epidural space 40 mg of DepoMedrol was injected with 3 mL of normal saline. The stylette was replaced and the needle was then removed. Sterile bandage was applied over the puncture site. Following completion of the procedure, the patient was transported to the PACU, then was later discharged in stable condition. Cosigned by Richard Taylor MD at 05/28/2025 7:09 AM EDT Associated attestation - Richard Taylor MD - 05/28/2025 7:09 AM EDT I was present for the entirety of the procedure(s). documented in this encounter Plan of Treatment Upcoming Encounters Date Type Department Care Team (Late st Contact Info) Description 07/24/2025 1:00 PM EST Office Visit [facility] Interventional Pain Medicine [address] [place] [address] Richard Taylor MD [address] [facility] [address] [place] [address] documented as of this encounter Procedures Procedure Name Priority Date/Time Associated Diagnosis Comments IVP NURSE PROCEDURE PROTOCOL Routine 05/27/2025 1:30 PM EDT [place] NJX DX/THER SBST INTRLMNR LMBR/SAC W/IMG GDN Routine 05/27/2025 1:30 PM EDT Lumbar radiculopathy documented in this encounter Results * Interventional Pain Nurse Procedure Protocol (05/27/2025 1:30 PM EDT) Narrative Elva Quiñones RN - 05/27/2025 1:30 PM EDT Elva Quiñones RN 05/28/2025 7:10 AM Interventional Pain Nurse Procedure Protocol Documentation: Indications: Documentation supporting primary procedure completed by : Richard Taylor MD See the provider procedure note for performed procedure details and findings. Pre-Procedure Checklist: Currently taking anticoagulant(s)?: no Technical Maintenance Specialist present?: no Additional Pre-Procedure Comments: JAZMIN Pa timeout was called immediately prior to the procedure, in accordance with [employer] policy @ 1346 Procedure details: Procedure start time:: 05/27/2025 1:48 PM Procedure end time:: 05/27/2025 1:51 PM Guidance used (if applicable): fluoro Total amount of contrast dye (mGy): 2.25 Fluoro time: 14 seconds Moderate conscious sedation used?: no Post-procedure details: Orientation at discharge?: Normal to time, normal to place, normal to person, normal to situation and completely oriented Mood and Affect normal?: yes Discharged to: home Mode of exit: Walked (@ 1403; had mild vasovagal at end of procedure, returned to postop via stretcher for safety, recovered quickly and without incident.) Attendance: Constant attendance by certified staff until patient recovered Recovery: Patient returned to pre-procedure baseline Estimated blood loss (see I/O flowsheets): no Specimens recovered: None Patient is stable for discharge or admission: yes Procedure completion: Tolerated well, no immediate complications us Richard Taylor MD IN CLINIC/BEDSIDE ORDERABLES Final Result * [place] NJX DX/THER SBST INTRLMNR LMBR/SAC W/IMG GDN (05/27/2025 1:30 PM EDT) Narrative Richard Taylor MD - 05/27/2025 1:30 PM EDT Richard Taylor MD 05/28/2025 7:09 AM Interlaminer Epidural - Lumbar / Sacral Performed by: Eliel Brannon DO Authorized by: Richard Taylor MD us Richard Taylor MD IN CLINIC/BEDSIDE ORDERABLES Final Result documented in this encounter Visit Diagnoses Diagnosis Lumbar radiculopathy Thoracic or lumbosacral neuritis or radiculitis, unspecified documented in this encounter Administered Medications Inactive Administered Medications - up to 3 most recent administrations Medication Order MAR Action Action Date Dose Rate Site iohexol (OMNIPaque) 300 MG/ML injection 10 mL 10 mL, Other, Once in imaging, 1 dose, Starting on Tue05/27/25 at 1347, Until Tue05/27/25 at 1348, RoutineIndications:Lumbar radiculopathy Given by Other 05/27/2025 1:48 PM EDT 10 mL lidocaine PF (Xylocaine) 1 % injection 300 mg 300 mg (30 mL), Injection, Once, 1 dose, On Tue05/27/25 at 1445, RoutineIndications:Lumbar radiculopathy Given by Other 05/27/2025 1:48 PM EDT 300 mg methylPREDNISolone acetate (DEPO-Medrol) injection 40 mg 40 mg, Intra-articular, Once, 1 dose, On Tue05/27/25 at 1445, RoutineIndications:Lumbar radiculopathy Given by Other 05/27/2025 1:48 PM EDT 40 mg sodium bicarbonate 8.4 % injection 50 mEq 50 mEq, Intradermal, Once, 1 dose, On Tue05/27/25 at 1445, RoutineIndications:Lumbar radiculopathy Given by Other 05/27/2025 1:49 PM EDT 50 mEq sodium chloride (PF) 0.9 % injection 20 mL 20 mL, Intracatheter, Once, 1 dose, On Tue05/27/25 at 1445, RoutineIndications:Lumbar radiculopathy Given by Other 05/27/2025 1:48 PM EDT 20 mL documented in this encounter Additional Health Concerns Assessment Noted Time A fall risk assessment has been complete d for the patient 05/27/2025 1:06 PM EDT A Body Mass Index follow-up plan has been documented for the patient 05/28/2025 7:10 AM EDT documented as of this encounter Care Teams Vacuum Cleaner Mechanic Relationship Specialty Start Date End Date Consuelo Segundo APRN [address] [place] [address] PCP - General 07/11/23 Asael Bolden MD [address] [place] [address] Surgeon Neurosurgery 03/16/21 Anup Ronquillo MD [address] [place] [address] Consulting Physician Neurology 10/19/21 documented as of this encounter
[2025-07-07 10:46] VITALS: BP 129/79; PULSE 58; RESP 16; TEMP 36.6; O2SAT 97; BMI 32.3
[2025-07-07 10:55] LABS: Coronavirus 19, PCR Not Detected (NotDetected); Influenza A, PCR Not Detected (NotDetected); Influenza B, PCR Not Detected (NotDetected)
[2025-07-07 11:00] VITALS: BP 105/82; PULSE 57; O2SAT 97
--- NOTE | 2025-07-07 11:01 | HMH.EDGENADL ---
Discharge Plan Disposition Patient Disposition: Home, Self-Care Prescriptions Prescriptions: New meloxicam 15 mg tablet 15 mg PO DAILY Qty: 14 0RF benzonatate 100 mg capsule 100 mg PO BID PRN (Reason: cough) Qty: 20 0RF No Action psyllium husk [Metamucil] 0.4 gram capsule 0.4 g PO DAILY colestipol 1 gram tablet 1 g PO BID Qty: 60 5RF esomeprazole magnesium 40 mg capsule,delayed release(DR/EC) 40 mg PO BID Patient Comments: TAKE ONE CAPSULE BY MOUTH TWICE DAILY Sutab 1.479-0.188- 0.225 gram tablet See Rx Instructions PO PER PKG DIR Qty: 24 0RF Rx Instructions: at 6pm the night before procedure, swallow 1 tablet every 1-2 minutes. you should finish 12 tablets and entire 16 oz of water within 20 minutes. IMPORTANT: If you experience pre-related symptoms ( nausea, bloating or cramping) pause and slow the rate of drinking additional water until symptoms diminish. approximately one hour after the last tablet, drink 16 oz of water over 30 mins. then repeat 4 hours before procedure time. gabapentin 600 mg tablet 600 mg PO TID Patient Comments: TAKE ONE TABLET BY MOUTH THREE TIMES DAILY atorvastatin 20 mg tablet 20 mg PO HS Patient Comments: TAKE ONE TABLET BY MOUTH DAILY amlodipine 5 mg tablet 5 mg PO DAILY Patient Comments: TAKE ONE TABLET BY MOUTH DAILY mesalamine [Apriso] 0.375 gram capsule,extended release 24hr 1.48 g PO DAILY Patient Comments: Take 4 capsules every day by oral route as directed for 90 days. Jardiance 25 mg tablet 25 mg PO DAILY Patient Comments: Take 1 tablet every day by oral route. amoxicillin-pot clavulanate 875-125 mg tablet 1 tab PO BID Qty: 10 0RF propranolol 10 mg tablet 10 mg PO BID Patient Comments: TAKE ONE TABLET BY MOUTH TWICE DAILY for tremors divalproex [Depakote ER] 500 mg tablet extended release 24 hr 500 mg PO BID Patient Comments: TAKE ONE TABLET BY MOUTH TWICE DAILY tamsulosin 0.4 mg capsule 0.4 mg PO HS Patient Comments: TAKE ONE CAPSULE BY MOUTH ONCE DAILY Referrals Follow up/Referrals: Consuelo Segundo APRN [Primary Care Provider, Medical] - See instructions Clinical Impressions Clinical Impression: Cough, Pleuritis Instructions Patient Instructions: Cough, Pleurisy Print Language Print Language: Upper Sorbian Discharge ED Provider: Leonid Castle [facility] Adult HPI General Chief complaint: Upper Respiratory Infection Stated complaint: cough, congestion, SOA, Pain on inhale Time Seen by Provider: 07/07/25 10:54 Mode of Arrival: Ambulatory Source of Information: Patient Description of Symptoms (Recalled from ER Triage Doc. by RN): Patient states he has had cough, congestion since Tuesday07/05/25, states he was seen at his PCP office and tested for COVID and flu- both were negative- was given a Z-pack, a nasal spray and muccinex. Patient states he does not feel any better. History of Present Illness HPI narrative: He is on day 5 of symptoms. denies productive cough. is on day 3 of his z-pack without resolution of symptoms. has intermittent pleuritic chest pain. is concerned for pneumonia. Related Data Home Medications ?Medication ?Instructions ?Recorded ?Confirmed amlodipine 5 mg tablet 5 mg PO DAILY 05/29/24 01/24/25 atorvastatin 20 mg tablet 20 mg PO HS 05/29/24 03/14/25 empagliflozin 25 mg tablet 25 mg PO DAILY 05/29/24 03/14/25 (Jardiance) gabapentin 600 mg tablet 600 mg PO TID 05/29/24 03/14/25 mesalamine 0.375 gram 1.48 g PO DAILY 05/29/24 03/14/25 capsule,extended release 24 hr (Apriso) divalproex 500 mg tablet,extended 500 mg PO BID bipolar disease 10/15/24 03/14/25 release 24 hr (Depakote ER) propranolol 10 mg tablet 10 mg PO BID tremors 10/15/24 03/14/25 tamsulosin 0.4 mg capsule 0.4 mg PO HS 10/15/24 03/14/25 esomeprazole magnesium 40 mg 40 mg PO BID 11/08/24 03/14/25 capsule,delayed release psyllium husk 0.4 gram capsule 0.4 g PO DAILY 03/14/25 03/14/25 (Metamucil) Previous Rx's ?Medication ?Instructions ?Recorded colestipol 1 gram tablet 1 g PO BID #60 tabs 03/14/25 sodium sul 1.479 gram-potas ch See Rx Instructions PO PER PKG DIR 09/02/25 0.188 gram-magnes sul 0.225 gram colonscopy #24 tabs tablet (Sutab) amoxicillin 875 mg-potassium 1 tab PO BID #10 tabs 04/18/25 clavulanate 125 mg tablet benzonatate 100 mg capsule 100 mg PO BID PRN cough #20 caps 07/07/25 meloxicam 15 mg tablet 15 mg PO DAILY #14 tabs 07/07/25 Allergies Allergy/AdvReac Type Severity Reaction Status Date / Time prednisone Allergy Mild Other Verified 03/14/25 11:36 levofloxacin (From Levaquin) Allergy Other Verified 03/14/25 11:36 lithium Allergy Other Verified 03/14/25 11:36 metronidazole (From Flagyl) Allergy Other Verified 03/14/25 11:36 mometasone furoate (From Allergy Other Verified 03/14/25 11:36 Asmanex Twisthaler) montelukast (From Singulair) Allergy Other Verified 03/14/25 11:[address] [facility] Disclaimer: The information contained in this section may have been updated after the patient was seen, as this information can be updated by other users. Medical History Chest pain Nausea, vomiting and diarrhea Abdominal pain Diastasis of rectus abdominis Kidney stone on left side Left flank pain Stye Bronchitis Concussion Corneal abrasion Foreign body, intraocular Left wrist sprain Urinary tract infection Right foot pain Left foot pain Metatarsalgia of right foot Diabetic foot Diabetes mellitus Left wrist amputee GERD (gastroesophageal reflux disease) Depression Anxiety Diabetes mellitus, type 2 Hyperlipidemia Hypertension Surgical History H/O left wrist surgery Hx of cataract surgery History of cholecystectomy History of hip replacement Family History Brother Asthma Hypertension Mother Cancer Hypertension Sister Diabetes Hypertension Brother Diabetes Hypertension Grandfather Tuberculosis Social History Smoking Status: Never smoker second hand exposure: No alcohol intake: never substance use type: denies use current occupational status: unemployed Travel in the last 8 weeks?: None lives independently: No marital status: Have you lived/traveled outside [place] in past 30 days?: No Contact w/someone who lives/traveled outside [place] past 30 days?: No Exposure to someone with infectious disease in past 14 days?: No Do you have a fever (greater than 100.4 F or 38 C)?: No Have you tested positive for COVID-19?: No Exposed to someone with COVID-19 in past 14 days?: No Do you have a sore throat?: No Do you have a cough?: Yes Do you have any weakness?: No Do you have any diarrhea?: No Are you experiencing any unusual bleeding?: No Do you have any muscle aches/pain?: Yes Do you have any abdominal pain?: No Are you experiencing loss of taste or smell?: No Other Medical History Have you received the Flu Vaccine for this season: No Have you received the Pneumonia Vaccine: No ROS Obtained: Yes Systems reviewed as appropriate & no additional complaints except as documented Physical Exam General General appearance: alert and in no apparent distress Head Head exam: atraumatic Eye Eye exam: Present normal appearance ENT ENT exam: Present normal exam Neck Neck exam: Present normal inspection Chest Chest inspection: Present normal inspection Respiratory Respiratory exam: Present normal lung sounds bilaterally and other (normal effort on room air) Cardiovascular Cardiovascular exam: Present regular rate, normal rhythm and normal heart sounds Abdominal Exam Abdominal exam: Present soft and other (nontender ) Extremities Exam Extremities exam: Present normal inspection Neurological Exam Neurological exam: Present alert and oriented X3 Psychiatric Psychiatric exam: Present normal affect Skin Skin exam: Present warm and dry Medical Decision Making Medical Records Screening: Per USPSTF and CDC recommendations, given the prevalence of disease in our region, it is our hospital?s policy to screen for HIV and viral Hepatitis for all patients aged 18 and over and those with ongoing risk factors. Jeet Inquiry Pt receiving controlled substance: No Vital Signs: 07/07/25 10:46 07/07/25 11:00 07/07/25 11:30 Temperature 98 F Temperature Source Oral Pulse Rate 57 L 57 L Pulse Rate [Right Brachial] 58 L Respiratory Rate 16 Blood Pressure 105/82 L 114/68 Blood Pressure [Right Arm] 129/79 Blood Pressure Mean [Right Arm] 95 Blood Pressure Source Blood Pressure Source [Right Arm] Automatic Cuff Blood Pressure Position Blood Pressure Position [Right Arm] Sitting 02 Sat by Pulse Oximetry 97 97 95 Oxygen Delivery Method Room Air Room Air Room Air 07/07/25 12:00 07/07/25 12:31 07/07/25 13:12 Temperature 98.0 F Temperature Source Oral Pulse Rate 52 L 53 L 54 L Pulse Rate [Right Brachial] Respiratory Rate 16 Blood Pressure 114/66 125/82 122/74 Blood Pressure [Right Arm] Blood Pressure Mean [Right Arm] Blood Pressure Source Automatic Cuff Blood Pressure Source [Right Arm] Blood Pressure Position Sitting Blood Pressure Position [Right Arm] 02 Sat by Pulse Oximetry 95 97 Oxygen Delivery Method Room Air Room Air Room Air Lab Data Lab results reviewed: Yes I reviewed the patient's lab results. Lab Results 07/07/25 10:48: SARS-CoV-2 (PCR) Not detected, Influenza A Untype (PCR) Not detected, Influenza Type B (PCR) Not detected 07/07/25 10:50: WBC 4.4 L, RBC 4.92, Hgb 15.4, Hct 45.3, MCV 92.1, MCH 31.3 H, MCHC 34.0, RDW 12.8, Plt Count 143, MPV 10.2, Neut % (Auto) 46.0, Lymph % (Auto) 38.9, Morrill % (Auto) 9.0, Eos % (Auto) 5.2, Baso % (Auto) 0.7, Neut # (Auto) 2.0, Lymph # (Auto) 1.7, Morrill # (Auto) 0.4, Eos # (Auto) 0.2, Baso # (Auto) 0.0, Sodium 134 L, Potassium 4.0, Chloride 102, Carbon Dioxide 25, Anion Gap 11.0, BUN 11, Creatinine 0.90, Estimated Creat Clear 94, Estimated GFR 85, Est GFR ( Amer) 102, Glucose 239 H, Calcium 9.0, Total Bilirubin 1.0, AST 48, ALT 43, Alkaline Phosphatase 110, Total Protein 7.3, Albumin 4.3, Globulin 3.0, Albumin/Globulin Ratio 1.4 07/07/25 10:50 07/07/25 10:50 Orders (Tests/Meds): ORDERS Category Date Time Status CXR 2 view (NOT portable) [XR chest 2V] Stat Exams 07/07/25 11:31 Completed Complete Blood Count Auto Diff Stat Lab 07/07/25 10:50 Completed Comprehensive Metabolic Panel Stat Lab 07/07/25 10:50 Completed Rapid PCR Covid and Flu A/B Stat Lab 07/07/25 10:48 Completed Medical Decision Narrative: He is on day 5 of symptoms. denies productive cough. is on day 3 of his z-pack without resolution of symptoms. has intermittent pleuritic chest pain. is concerned for pneumonia his lab workup was notable for slight leukopenia he remained hds throughout his stay in the ed on room air his pain described as sharp and pleutitic associated with his congestion and cough, very low suspciion for cardiac etiology or pe based on lack of tachycardia, hypotension, or need for osxygen support, absence of tachypnea cxr without sign of consolidation, suspect viral bronchitis, which explains his continued cough, pleutitis, and absence of improvement from zpack did recommend finishing zpack as he is on day 3 currently prescribed benzotate return precautions for new fever, new purulent cough, worsening pain or sob Critical Care Critical Care Time Critical Care Time: No
--- OUTSIDE RECORDS SUMMARY | 2025-07-07 11:05 | XMS_ITS | Data Portability ---
Author Organization [facility] [place] LINNETTE Guzmán HARDIN CLOSED Address [address] [facility] [place] [address] Care Team Providers Care Ditch Rider Name Role Phone SELENA BOX Primary Care Provider [phone] Assessment Encounter Date Assessment Date Assessment LastModified [...] I will see if Dr. Olguin our set painter can evaluate and treat him.He was happy [...] L3-5 MBB no relief 06/22/2021 L2-3 IL ILYA Currently prescribed gabapentin with minimal. Presentation is [...] L3-5 MBB no relief 06/22/2021 L2-3 IL ILYA Jeet reviewed and appropriate. Patient is considered [...] lower urinary symptoms with alfuzosin and finasteride. [email or web address] Not available 05/25/2023 19:30:24 06/21/2023 06/21/2023 DATE [...] Discharged home with instructions for outpatient follow-up. Not available 06/21/2023 16:00:46 Plan of Treatment Reminders Order Date Submit Date Provider Last Modified By Organization Details Last Modified Time Details Appointments None recorded . Lab urinalys is panel, auto 2022 023 [email or web address] [facility], [address] [place] [address], [address], [place], [address], 19:30:25 PSA, serum or plasma 2022 023 [email or web address] [facility], [address], [address], [place], [address], 3 19:30:25 toxicolo gy screen, urine 2022 023 [facility], [address] [place], [address], 00:04:17 Referral neurolog ical surgeon referral 2022 023 renae [facility] [place], [address] [facility] [address], [place], [address], 3 11:37:15 Procedures None recorded . Surgeries transure thral resectio n of bladder neck (SURG) [address] [facility], [address] [facility], [facility] [address], [place], [address], 13:14:48 cystosco py (SURG) [email or web address] [facility], [address], [address], 3 16:21:07 Imaging None recorded . Medication Orders alfuzosi n ER 10 mg tablet,e xtended release 24 hr 2022 023 [facility], [address] [place], [address], 4 10:49:03 finaster shmuel 5 mg tablet 2022 023 [email or web address] [facility], [address] [place], [address], 3 15:09:17 Lyrica 100 mg capsule 2022 023 [facility], [address] [place], [address], 3 11:24:18 Patient TargetsNo targets recorded. Patient [...] NEGATI VE NG/mL <10 normal Not Available [facility] [address] [place], [address], 05/13/2023 00:50:28 05/10/20 23 05/11/2023 HIGH RISK DRUG PANEL buprenorphin e NEGATI VE NG/mL <2 normal Not Available [facility] [address] [place], [address], 05/13/2023 00:50:28 05/10/20 23 05/11/2023 HIGH RISK DRUG PANEL norbuprenorp lauren NEGATI VE NG/mL <2 normal Not Available [facility] [address] [place] [address], [address], 05/13/2023 00:50:28 05/10/2005/11/2023 HIGH RISK DRUG PANEL naloxone NEGATI VE NG/mL <2 normal Not Available [facility] [address] [place] [address], [address], 05/13/2023 00:50:28 05/10/20 23 05/12/2023 HIGH RISK DRUG PANEL amphetamines NEGATI VE NG/mL <500 normal Not Available [facility] [address] [place] [address], [address], 05/13/2023 00:50:28 05/10/2005/12/2023 HIGH RISK DRUG PANEL barbiturates NEGATI VE NG/mL <300 normal Not Available [facility] [address] [place] [address], [address], 05/13/2023 00:50:28 05/10/2005/12/2023 HIGH RISK DRUG PANEL benzodiazepi conchis NEGATI VE NG/mL <100 normal Not Available [facility] [address] [place] [address], [address], 05/13/2023 00:50:28 05/10/20 23 05/12/2023 HIGH RISK DRUG PANEL marijuana metabolite NEGATI VE NG/mL <20 normal Not Available [facility] [address] [place] [address], [address], 05/13/2023 00:50:28 05/10/20 23 05/12/2023 HIGH RISK DRUG PANEL cocaine metabolite NEGATI VE NG/mL <150 normal Not Available [facility] [address] [place] [address], [address], 05/13/2023 00:50:28 05/10/20 23 05/12/2023 HIGH RISK DRUG PANEL methadone metabolite NEGATI VE NG/mL <100 normal Not Available [facility] [address] [place] [address], [address], 05/13/2023 00:50:28 05/10/2005/12/2023 HIGH RISK DRUG PANEL opiates NEGATI VE NG/mL <100 normal Not Available [facility] [address] [place] [address], [address], 05/13/2023 00:50:28 05/10/20 23 05/12/2023 HIGH RISK DRUG PANEL oxycodone NEGATI VE NG/mL <100 normal Not Available [facility] [address] [place] [address], [address], 05/13/2023 00:50:28 05/10/20 23 05/12/2023 HIGH RISK DRUG PANEL phencyclidin e NEGATI VE NG/mL <25 normal Not Available [facility] [address] [place] [address], [address], 05/13/2023 00:50:28 05/10/20 23 05/12/2023 HIGH RISK DRUG PANEL creatinine 61.8 mg/dL > or = 20.0 normal Not Available [facility] [address] [place] [address], [address], 05/13/2023 00:50:28 05/10/20 23 05/12/2023 HIGH RISK DRUG PANEL specific gravity 1.015 > or = 1.003 normal Not Available [facility] [address] [place] [address], [address], 05/13/2023 00:50:28 05/10/20 23 05/12/2023 HIGH RISK DRUG PANEL pH 7.3 4.5-9. 0 normal Not Available [facility] [address] [place] [address], [address], 05/13/2023 00:50:28 05/10/20 23 05/12/2023 HIGH RISK DRUG PANEL oxidant NEGATI VE mcg/m L <200 normal Not Available [facility] [address] [place], [address], 05/13/2023 00:50:28 05/10/20 23 05/12/2023 HIGH RISK DRUG PANEL comment SEE BELOW normal This drug testi ng is for medic al treat ment only. Lucina sis was perfo rmed as non-f orens ic testi ng and these resul ts shoul d be used only by healt [facility] ders to rende r diagn osis or treat ment, or to monit or progr ess of medic al condi tions . LDT Notes : Confi rmati on tests were devel oped and their lucina tical perfo rmanc e wilmer cteri stics have been deter mined by [facility]. It has not been clear ed or appro christiane by the FDA. This assay has been valid ated pursu ant to the CLIA regul ation s and is used for clini sandie purpo ses. [facility] Provi ders needi ng Inter preta tion zaira tance , pleas e conta ct us at 1.877 .40.R XTOX (1.87 7.407 .9869 ) M-F, 8am to 10pm EST Not Available [facility] [address] [place], [address], 05/13/2023 00:50:28 05/10/20 23 05/12/2023 HIGH RISK DRUG PANEL fentanyl NG/mL <0.5 normal SEE BELOW NEGAT JEROMY CONFI RMED NEGAT JEROMY Not Available [facility] [address] [place], [address], 05/13/2023 00:50:28 05/10/20 23 05/12/2023 HIGH RISK DRUG PANEL norfentanyl NEGATI VE NG/mL <0.5 normal Not Available [facility] [address] [place], [address], 05/13/2023 00:50:28 05/10/20 23 05/12/2023 HIGH RISK DRUG PANEL gabapentin 009153 NG/mL <1000 high Not Available [facility] [address] [place] [address], [address], 05/13/2023 00:50:28 05/10/20 23 05/12/2023 HIGH RISK DRUG PANEL pregabalin, qt ur NEGATI VE NG/mL <1000 normal Not Available [facility] [address] [place] [address], [address], 05/13/2023 00:50:28 05/10/20 23 05/12/2023 HIGH RISK DRUG PANEL desmethyltra madol NEGATI VE NG/mL <100 normal Not Available [facility] [address] [place] [address], [address], 05/13/2023 00:50:28 05/10/20 23 05/12/2023 HIGH RISK DRUG PANEL tramadol NEGATI VE NG/mL <100 normal Not Available [facility] [address] [place] [address], [address], 05/13/2023 00:50:28 05/10/20 23 05/12/2023 HIGH RISK DRUG PANEL tapentadol NEGATI VE NG/mL <50 normal Not Available [facility] [address] [place] [address], [address], 05/13/2023 00:50:28 05/10/20 23 05/12/2023 HIGH RISK DRUG PANEL nortapentado l NEGATI VE NG/mL <50 normal Not Available [facility] [address] [place] [address], [address], 05/13/2023 00:50:28 05/10/20 23 05/12/2023 HIGH RISK DRUG PANEL ethyl glucuronide NEGATI VE NG/mL <500 normal Not Available [facility] [address] [place] [address], [address], 05/13/2023 00:50:28 05/10/20 23 05/12/2023 HIGH RISK DRUG PANEL ethyl sulfate NEGATI VE NG/mL <100 normal Not Available [facility] [address] [facility], [place], [address], 05/13/2023 00:50:28 05/18/2005/18/2023 PSA, serum or plasm a PSA 0.30 NG/mL 0.0 - 4.0 Not Available [facility] [address], [place], [address], 05/18/2023 10:29:57 05/18/2005/18/2023 urina lysis panel , auto Unknown Analyte Clean Catch Not Available [facility] [address], [place], [address], 05/18/2023 09:50:26 05/18/2005/18/2023 urina lysis panel , auto Unknown Analyte Yellow Not Available [facility] [address], [address], 05/18/2023 09:50:26 05/18/2005/18/2023 urina lysis panel , auto Unknown Analyte Cloudy Not Available [facility] [address], [place], [address], 05/18/2023 09:50:26 05/18/2005/18/2023 urina lysis panel , auto Unknown Analyte 1.015 Not Available [facility] [address], [place], [address], 05/18/2023 09:50:26 05/18/20 23 05/18/2023 urina lysis panel , auto Unknown Analyte 1.003- 1.035 Not Available [facility] [address], [place], [address], 05/18/2023 09:50:26 05/18/2005/18/2023 urina lysis panel , auto Unknown Analyte 7.0 Not Available [facility] With [address], [place], [address], 05/18/2023 09:50:26 05/18/2005/18/2023 urina lysis panel , auto Unknown Analyte 5.0-8. 0 Not Available [facility] [address], [place], [address], 05/18/2023 09:50:26 05/18/2005/18/2023 urina lysis panel , auto Unknown Analyte Negati ve Not Available [facility] [address], [place], [address], 05/18/2023 09:50:26 05/18/2005/18/2023 urina lysis panel , auto Unknown Analyte Negati ve Not Available [facility] [address], [place], [address], 05/18/2023 09:50:26 05/18/2005/18/2023 urina lysis panel , auto Unknown Analyte Negati ve Not Available [facility] [address], [place], [address], 05/18/2023 09:50:26 05/18/2005/18/2023 urina lysis panel , auto Unknown Analyte Negati ve Not Available [facility] [address], [place], [address], 05/18/2023 09:50:26 05/18/2005/18/2023 urina lysis panel , auto Unknown Analyte Negati ve Not Available [facility] [address], [place], [address], 05/18/2023 09:50:26 05/18/2005/18/2023 urina lysis panel , auto Unknown Analyte Negati ve Not Available [facility] [address], [place], [address], 05/18/2023 09:50:26 05/18/2005/18/2023 urina lysis panel , auto Unknown Analyte >1000 mg/dl Not Available [facility] [address], [place], [address], 05/18/2023 09:50:26 05/18/2005/18/2023 urina lysis panel , auto Unknown Analyte Normal Not Available [facility] [address], [place], [address], 05/18/2023 09:50:26 05/18/2005/18/2023 urina lysis panel , auto Unknown Analyte 15 mg/dl (Sm) Not Available [facility] [address], [place], [address], 05/18/2023 09:50:26 05/18/2005/18/2023 urina lysis panel , auto Unknown Analyte Negati ve Not Available [facility] [address], [place], [address], 05/18/2023 09:50:26 05/18/2005/18/2023 urina lysis panel , auto Unknown Analyte 1 mg/dl Not Available [facility] [address], [place], [address], 05/18/2023 09:50:26 05/18/2005/18/2023 urina lysis panel , auto Unknown Analyte Normal 1 mg/dl Not Available [facility] [address], [place], [address], 05/18/2023 09:50:26 05/18/2005/18/2023 urina lysis panel , auto Unknown Analyte Negati ve Not Available [facility] [address], [place], [address], 05/18/2023 09:50:26 05/18/2005/18/2023 urina lysis panel , auto Unknown Analyte Negati ve Not Available [facility] [address], [place], [address], 05/18/2023 09:50:26 05/18/2005/18/2023 urina lysis panel , auto Unknown Analyte Negati ve Not Available [facility] [address], [place], [address], 05/18/2023 09:50:26 05/18/2005/18/2023 urina lysis panel , auto Unknown Analyte Negati ve Not Available [facility] [address], [place], [address], 05/18/2023 09:50:26 03/15/20 23 03/15/2023 XR, hip, unila teral , 2 or 3 view [facility] [address] [place] [address] Jorge duncan Name: ELLIOT duncan : [address] Jorge duncan Orderi ng Provid er: [facility] EXAM DATE: 2022 EXAM: XR RT HIP [...] Angie Abreu MD on 03/15/20 9:16 AM [email or web address] [facility] [place] [address] , [place], [address], 05/19/2023 07:37:55 03/15/20 23 03/15/2023 XR, lumbo sacra l spine , 2 or 3 view [facility] [address] [place] [address] Jorge duncan Name: ELLIOT duncan : [address] Jorge duncan Orderi ng Provid er: [facility] EXAM DATE: 2022 EXAM: XR LUMBAR AP/LAT [...] Asia Pandey MD on 03/15/20 2:22 PM [email or web address] [facility] [place] [address] , [place], [address], 05/19/2023 07:37:55 04/06/20 23 04/06/2023 MRI, lumba r spine , w/o contr ast [place] [facility] [address] [facility] [place] [address] Patialie duncan Name: ELLIOT duncan : [address] dun[address] Orderi ng Provid er: ANGIE RAMOS EXAM DATE: 2022 EXAM: MR LUMBAR W/O CONTRA ST HISTOR Y: 62-yea r-old male with low back pain radiat ing to the hips and legs. COMPAR TIM: Radiog raph dated 03/15/20 FINDIN GS: The lumbar spine is normal [...] Wan rose MD on 023 11:22 AM [email or web address] [facility] [address], [place], [address], 04/07/2023 07:34:29 04/14/20 23 04/14/2023 XR, lumbo sacra l spine , 2 or 3 view, bendi ng only [address] [place] [address] Dennisealie duncan Name: ELLIOT duncan : [address] [...] Abreu MD on 04/14/20 12:49 PM [email or web address] [facility] [address], [address], 05/19/2023 14:33:38 Result Notes Documentation Provider Name and Address Organization Details Recorded Time Xr, Lumbosacral Spine, 2 Or 3 View, Bending Only : [address] [address] Patient Name: ELLIOT MATA Patient : 1960 Patient Ordering Provider: SNEHAL GALLO EXAM DATE: 04/14/2023 EXAM: XR LUMBAR SPINE FLEX/EXT ONLY CLINICAL INFORMATION: Back pain. IMAGES PROVIDED: Lateral views of the lumbar spine in flexion and extension. COMPARISON: 03/15/2023 FINDINGS: Vertebral body heights are normal. Disc spaces are well-maintained. No abnormality of alignment is seen. No instability is seen on flexion or extension. No radiographic evidence of injury is noted. Mild diffuse degenerative endplate spurring IMPRESSION: Mild diffuse DDD. No instability. Interpreted By: Angie Abreu MD AL GLALO MD [address] [place] [address], [address] 05/19/2023 14:33:38 Problems Name Problem SNOMED Code Status Onset Date Resolution Date Notes Provider Name and Address Organization Details Recorded Time Spermatoce le 23503054 Active 2015 From Automated [employer];Provi dayna: Lo[place]on, Gera;Statu s: Active Not Available [employer] 7 02:24:26 Problem Notes Documentation Provider Name and Address Organization Details Recorded Time Neurological Surgeon Consult Note : [facility] [address] [place] [id number], Elliot Sexton (id #[id number], : 1960) [facility] [address] [place] [address] Date: 04/19/2023RE: Elliot Mata, : 1960, PT ID #[id number] Woodward PA-C, I would like to thank you for referring Elliot Mata to our practice for consultation and evaluation. I have enclosed a copy of the office evaluation for your records. Sincerely, Electronically Signed by: FARIBA OLGUIN MDVibra [facility] Reason/Date Lower Back Elliot Mata is a [...] Prior Imaging:MRI Prior EMG:none Previous Surgery:none Previous Injections:ILYA; Had ILYA and RFA 4 years ago in [place] and the pain increased. Previous PT:did not help Previous Pin Setter:noneReview of Systems Patient reportsmuscle weakness, back pain, [...] negative, and no clonus of the ankle/knee.Pro[facility]an is a 62-year-old gentleman seen today for [...] RFA no relief09/02/2021 bilateral L3-5 MBB no [id number]/22/2021 L2-3 IL ILYA Currently prescribed gabapentin with minimal. Presentation is [...] clinical notes, and relevant labs. 1. Lumbar pqoyufxfuxhlpY10.16: Radiculopathy, lumbar region 2. Displacement of lumbar intervertebral discM51.26: Other intervertebral disc displacement, lumbar region 3. Spinal stenosis of lumbar adguofF00.062: Spinal stenosis, lumbar region with neurogenic claudication Return to Office Patient will return to the office as needed Marisol Santiago [facility] 04/22/2023 09:10:51 External Records : [facility] [address] [facility] [id number], Perry M (id #[id number], : 1960) [facility] [address] [facility] [address] [place] [address] Date: 05/25/2023RE: Elliot Mata : 1960, PT ID #[id number] Woodward PA-C, I would like to thank you for referring Elliot Mata to our practice for consultation and evaluation. I have enclosed a copy of the office evaluation for your records. Sincerely, Electronically Signed by: JARRED TIAN MDCleveland Clinic Medina Hospitalbharat Reason/DateTransition of Care Encounter 05/18/2023 - 09:00AM - [facility] History of Present [id number] male in the office for my initial evaluation and for discussion of prostatitis. He was referred here by [facility]. He was treated for a UTI at [...] urinary symptoms with alfuzosin and finasteride. 1. ThufzksyrjnZ72.9: Inflammatory disease of prostate, unspecified URINALYSIS PANEL, AUTO - Specimen source: Urine 2. Benign prostatic hyperplasia with outflow yrcmbbgnwcrW08.1: Benign prostatic hyperplasia with lower urinary tract symptoms alfuzosin ER 10 mg tablet,extended release 24 hr - To be submitted on or around 05/25/2023 Take 1 tablet(s) every day by oral route for 90 days. Qty: (90) tablet Refills: 3 Pharmacy: [facility] Note to Pharmacy: Discontinue Flomax [...] of service: [facility] Procedure code: [id number] Authorization: [facility] (Medicare Replacement/Advantage - PPO) NOTREQUIRED Not Required for [id number]: [facility] (Medicaid Replacement - HMO) [place] [address] PSA, SERUM OR PLASMA - Specimen source: [...] SCHEDULE on 06/21/2023 at 01:15 PM [facility] 05/26/2023 07:27:19 Procedures Surgical History Date Name Laterality Status Provider Name and Address Organization Details Recorded Time 01/27/20 22 Total hip arthroplasty completed Barbara Crain [facility] 03/15/2023 08:38:27 08/08/19 18 Collette fundoplication completed Kristen Cage [facility] 04/19/2023 08:53:28 Cholecystectomy completed Selena Ramsey [facility] 12/29/2016 14:18:06 Other completed [facility] 12/29/2016 14:18:59 Kidney Stones completed Sel[facility] 12/29/2016 14:19:05 Imaging Results None recorded. Procedure Notes None recorded. Medical Equipment None Reported. Allergies Allergen ID Allergen Name Allergen Category Reaction Reaction Severity Criticality Documentation Date Start Date Code Code System Note Provider Name and Address Organization Details Recorded Time 438120 Singulair medicatio n Not available Not available Not available 07/01/20162005 52716 9 RxNorm Comme nt: throa t to ld , SOB;C reate d By: Mary Ann jeffers; Creat ed Date: 2005 12:09 :53 PM; Not Available [facility] 6 10:20:20 [id number] Flagyl medicatio n Not available Not available Not available 07/01/20162012 23126 6 RxNorm Comme nt: Creat ed By: Shivani rosario;Cr eated Date: 2012 9:11: 44 AM; Not Available [facility] 6 10:54:21 [id number] prednison e medicatio n Not available Not available Not available 07/01/20162005 8640 RxNorm Comme nt: AGGRE SSIVE AND VIOLE NT;Cr eated By: Mary Ann jeffers; Creat ed Date: 2005 12:09 :04 PM; Not Available [facility] 6 11:15:51 003505 Asmanex medicatio n Not available Not available Not available 07/01/20162012 73946 2 RxNorm Comme nt: Creat ed By: Shivani rosario;Cr eated Date: 2012 9:11: 33 AM; Not Available [facility] 6 11:15:51 237312 Levaquin medicatio n Not available Not available Not available 07/02/20162005 11960 2 RxNorm Comme nt: hives ;Crea pravin By: Mary Ann jeffers; Creat ed Date: 2005 12:08 :14 PM; Not Available [facility] 6 03:55:39 378289 Gralise medicatio n Not available Not available Not available 07/02/20162012 83492 76 RxNorm Comme nt: Creat ed By: Shivani rosario;Cr eated Date: 2012 9:11: 55 AM; Not Available [facility] 6 03:55:39 [id number] Lipitor medicatio n Not available Not available Not available 12/29/2016 38336 5 RxNorm Selena Ramsey [facility] 7 14:14:27 863318 baclofen medicatio n vomiting severe high 05/09/20232022 1292 RxNorm Viviana Hernandez [facility] 3 08:25:37 Medications Name Sig Start Date [...] Not Available Not Available No t Available [email or web address] Ultra Test strips USE DAILY DIRECTED . [...] Body mass index (BMI) Body weight Systolic And Diastolic Provider Name and Address Organization Details Last Updated DateTime 04/14/2023 167.64 cm 35 kg/m2 10395.54 g 120/80 mm[Hg] Tena Vila [facility] 04/14/2023 10:02:09 Date Recorded Body height Body mass index (BMI) Body weight Respiratory rate Pain severity - 0-10 verbal numeric rating [Score] - Reported Systolic And Diastolic Provider Name and Address Organization Details Last Updated DateTime 3 167.64 cm 34.4 kg/m2 31093.1 7 g 14 /min 7 122/82 mm[Hg] Kristen Cage [facility] 3 08:50:49 Date Recorded Body height Body mass index (BMI) Body weight Heart rate Oxygen saturation Body temperature Systolic And Diastolic Provider Name and Address Organization Details Last Updated DateTime 3 167.64 cm 34.4 kg/m2 04310.1 7 g 68 /min 99 % 98.6 [degF] 122/84 mm[Hg] Debbie Sawant [facility] 3 08:48:38 Date Recorded Body height Body mass index (BMI) Body weight Provider Name and Address Organization Details Last Updated DateTime 05/18/2023 167.64 cm 32.9 kg/m2 47229.84 g Enriqueta Saldivarpherd [facility] 05/18/2023 15:09:20 Social History Question Answer Notes LastModified by Organizat ion Details LastModified Time Tobacco Smoking Status Never Smoker [facility] 12/29/2016 14:17:46 [facility] Informatio n not available 12/29/2016 What Was The Date Of Your Most Recent Tobacco Screening? 04/19/2023 Information not available 04/19/2023 Sex: Male Functional Status Question Answer Note LastModified by Organization D etails LastModified Time What is your level of alcohol consumption? None Information not available 12/29/2016 What is your occupation? Retired [employer]6 Information not available 12/29/2016 Mental Status None recorded. Family History Relationship Description Onset Age of this Age Resolved Age Notes LastModified by Organization Details LastModified Time Unspecified Relation [facility] Not available 2016 14:15:10 Unspecified Relation Family [...] Diagnosis SNOMED-CT Code Diagnosis ICD10 Code Diagnosis IMO Codes Diagnosis Note [id number] MD [facility]UL [facility] OUTREACH CLOSED [address] [place] [address] 12/29/2016 13:32:25 01/03/2017 10:52:03 Cyst of testes 534590055 N44.2 Large prostate 833543341 N40.0 [id number] ANGIE WOODWARD PA-C ORTHOPEDI [facility] CLOSED [address] [place] [address] 03/15/2023 08:20:06 03/15/2023 10:29:46 History of right hip replacement 8507400106 481329 Z96.641 Assessment : 1 year status post [...] for yearly follow-ups . Lumbar radiculopathy 128 M54.16 [id number] SNEHAL GALLO MD NEUROSURG [facility] CLOSED [address] [place] [address] 04/14/2023 09:19:30 04/15/2023 08:05:25 Lumbar spondylosis 165073537 M47.896 [id number] FARIBA OLGUIN MD PAIN MEDICINE CLOSED [address] [place] [address] 04/19/2023 08:34:14 04/19/2023 12:56:04 Displacement of lumbar intervertebral disc 2890701650 M51.26 Lumbar radiculopathy 128 115849 M54.16 Spinal valentín nosis of lumbar region 45462912 M48.062 [id number] KAROLINE HERNÁNDEZ PA-C PAIN MEDICINE CLOSED [address] [place] [address] 2023 08:40:01 05/11/2023 04:26:51 Lumbar radiculopathy 392454748 M54.16 Displaceme nt of lumbar intervertebral disc 2283702171 M51.26 Spinal valentín nosis of lumbar region 07711028 M48.062 Long-term drug therapy 479342138 Z79.899 [id number] JARRED TIAN MD [facility] [address] 05/18/2023 08:35:58 05/26/2023 19:59:58 Prostatitis 2382180 N41.9 Benign pro static hyperplasia with outflow obstruction 617905094 N40.1 [id number] JARRED TIAN MD SURGERY SCHEDULE [address] [place] [address] 06/21/2023 13:21:12 06/21/2023 13:22:01 Contracture of neck of urinary bladder 4816213301 9103 N32.0 Health Concerns Section Related Observation LastModified by Organization Detai ls LastModified Time None Recorded Concern Status LastModified by Organization Details LastModified Time None Recorded Advance Directives Directive None Recorded Payers Insurance Date Sequence Insurance Name Policy Number Policy Garcia Covered Member ID Garcia Member ID Guarantor Name 03/15/2023 1 [place] Elliot Mata [id number] Elliot Mata 12/08/2023 2 [facility] - FFS/[facility]ADITION[facility] L Elliot Mata [id number] Elliot Mata 07/08/2023 2 [facility] [place] [place] DANIELA Mata [id number] Elliot Mata 03/15/2023 1 [facility] (MEDICARE REPLACEMENT/AD VANTAGE - HMO) DANIELA Mata [id number] Elliot Mata 02/14/2024 1 [facility] (MEDICARE REPLACEMENT/AD VANTAGE - PPO) DANIELA Mata [id number] Elliot Mata 03/15/2023 1 [facility] (MEDICARE REPLACEMENT/AD VANTAGE - HMO) DANIELA Mata [id number] Elliot Mata Notes Date Note Type Note Provider Name and Address Organization Details Recorded Time 3 text/html Mr. Mata is 62 years old.He [...] is done physical therapy. He seen a set painter remotely in [place] where they have done injections. It sounds like he has had ablations and perhaps epidural injections.At some point he was seen by a spine surgeon at [facility] who talked him about undergoing surgery. [...] hip prosthesis looks good. SNEHAL GALLO MD [address] [place] [address], [address], [place] [facility] 04/14/2023 12:32:12 3 text/html Pain Management L-spine GISHReported by PatientHPIFor quality, patient reportsburningandsharp. For severity, patient reportsinterference with sleepbut reportscurrent pain level 7/10andworst pain 10/10. For associated symptoms, patient reportsweaknessbut reportsno bladder compromiseandno bowel compromise(on right). For adl (activities of daily living), patient reportsdo not improve with medication(uses otc acetaminophen alternating with ibuprofen, states the gabapentin doesn't work but he still takes it). For location, patient reportsbilateral le radiation,left buttock pain, andright buttock pain. For duration, patient reportsconstantandpain at night. For onset/timing, patient reportschronicand5 years. For context, patient reportscannot identify. For alleviating factors, patient reportsposition change. For aggravating factors, patient reportsgetting out of bed,going from sit to stand,sitting, andwalking. For work related, patient reportsno. For pain relief with current medications, patient bxukauc77%and4 hours. For driving impairments with medications, patient reportsno. For prior imaging, patient reportsmri. For prior emg, patient reportsnone. For previous surgery, patient reportsnone. For previous injections, patient reportsesi(had ilya and rfa 4 years ago in [place] and the pain increased.). For previous pt, patient reports did not help. 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 FARIBA OLGUIN MD [address] [place] [address], [address], [facility] 04/19/2023 09:37:12 3 text/html Pain Management L-spine GISHReported by PatientHPIFor quality, patient reportsnumbnessandburning. For severity, patient reportsinterference with sleepbut reportscurrent pain level 6-7/10andworst pain 10/10. For location, patient reportsradiating to the lle,radiating to the rle, andlbp. For duration, patient reportsconstant. For alleviating factors, patient reportsmedication. For associated symptoms, patient reportsno bladder compromiseandno bowel compromise. For work related, patient reportsno. KAROLINE HERNÁNDEZ PA-C [address] [place], [address], [facility] 2023 10:50:29 3 text/html 63-year-old male in the office for my initial evaluation and for discussion of prostatitis. He was referred here by [facility]. He was treated for a UTI at [...] postoperative retrograde ejaculation. JARRED TIAN MD [address] [place], [address], [facility] 05/25/2023 19:30:47
--- OUTSIDE RECORDS SUMMARY | 2025-07-07 11:05 | XMS_ITS | Encounter Summary ---
Author Organization [facility] Address [address] [place] [address] Care Team Providers Care Line Closer Name Role Phone Marisol Hidalgo APRN Primary Care Provider [phone] Asael Bolden MD Unavailable [phone] Anup Ronquillo MD Unavailable [phone] Kenya Antony APRN Primary Care Provider [phone] Consuelo Segundo APRN Primary Care Provider + [phone] Encounter Details Date Type Department Care Team (Late st Contact Info) Description 02/06/2021 Orders Only External Location [address] [place] [address] Provider, External Social History Tobacco [...] Description 07/24/2025 1:00 PM EST Office Visit [facility] Interventional Pain Medicine [address] [place] [address] Richard Taylor MD [address] [facility] [address] [place] [address] documented as of this encounter Procedures Procedure [...] on filedocumented in this encounter Care Teams Line Closer Relationship Specialty Start Date End Date Marisol Hidalgo APRN [address] [place] [address] PCP - General 12/19/20 11/26/21 Kenya Antony APRN [address] [place] [address] PCP - General 11/27/21 07/10/23 Consuelo Segundo APRN [address] [place], [place] [address] PCP - General 07/11/23 Asael Bolden MD [address] [place] [address] Surgeon Neurosurgery 03/16/21 Anup Ronquillo MD [address] [place] [address] Consulting Physician Neurology 10/19/21 documented as of this encounter
--- OUTSIDE RECORDS SUMMARY | 2025-07-07 11:05 | XMS_ITS | Encounter Summary ---
Author Organization [employer] ([place], [place], [place], [place], [place]) Address [address] [place] [address] Care Team Providers Care Cargo Worker Name Role Phone Salomón Frausto PA-C Unavailable [phone] Edson Miller MD Primary Care Provider + [phone] Consuelo Segundo APRN Primary Care Provider [phone] Encounter Details Date Type Department Care Team (Late st Contact Info) Description 12/05/2020 Transcribed Document [facility] [place] [address] [place] [address] ProviderGaurang MD [address] [place] [address] Social History Tobacco Use Types Packs/Day Years Used Date Smoking Tobacco: Never Assessed Sex and Gender Information Value Date Recorded Sex Assigned at Not on file Legal Sex Male 5:16 PM CDT Gender Identity Not on file Sexual Orientation Not on file documented as of this encounter Miscellaneous Notes * Cerner Conversion Note - Historical ProviderMD - 12/05/2020 2:00 AM CDT Anhydrous Ammonia Production Supervisor Details Entered On: 12/05/2020 4:57 EDT Performed On: 12/05/2020 2:00 EDT by Loki Coffey Non Emp RN Order Details Order Detail : N/A Lift/Transfer : Minimal Central Line Order Detail : No Room Service : Appropriate Arterial Line : No Patient Needs Meds Crushed/Liquid : No Loki Coffey, Rachna Emp RN - 12/05/2020 4:57 EDT documented in this encounter Plan of Treatment Not on file documented as of this encounter Visit Diagnoses Not on filedocumented in this encounter Care Teams Cargo Worker Relationship Specialty Start Date End Date Edson Miller MD [address] [place] [address] PCP - General Internal Medicine/Pediatrics 07/21/22 07/11/24 Consuelo Segundo, MANAGEMENT SCIENTIST [address] [address] PCP - General Family Medicine 07/12/24 Salomón Frausto PA-C [address] [place] [address] Orthopedist Physician Ice Cream Freezer Helper 05/07/22 documented as of this encounter
--- OUTSIDE RECORDS SUMMARY | 2025-07-07 11:05 | XMS_ITS | Encounter Summary ---
Author Organization [employer] ([place], [place], [place], [place], [place]) Address [address] [place] [address] Care Team Providers Care Windrower Operator Name Role Phone Salomón Frausto PA-C Unavailable [phone] Edson Miller MD Primary Care Provider + [phone] Consuelo Segundo APRN Primary Care Provider [phone] Encounter Details Date Type Department Care Team (Late st Contact Info) Description 12/05/2020 Transcribed Document [facility] [place] Medicine [facility] [place] [address] ProviderGaurang MD [address] [place] [address] Social History Tobacco Use Types [...] Non Emp RN - 12/05/2020 13:11 EDT Electronically signed by Poonam [facility] Conversion Director Of Occupational Health Cerner at 11/26/2022 6:01 PM CDT documented in this encounter Plan of Treatment Not on file documented as of this encounter Visit Diagnoses Not on filedocumented in this encounter Care Teams Windrower Operator Relationship Specialty Start Date End Date Edson Miller MD [address] [place] [address] PCP - General Internal Medicine/Pediatrics 07/21/22 07/11/24 Consuelo Segundo, OVERHEAD LINE WORKER 209 [facility] [address] [place] [address] PCP - General Family Medicine 07/12/24 Salomón Frausto PA-C [address] [place] [address] Orthopedist Physician Agent Ticketing Gate 05/07/22 documented as of this encounter
--- OUTSIDE RECORDS SUMMARY | 2025-07-07 11:05 | XMS_ITS | Encounter Summary ---
Author Organization [employer] ([place], [place], [place], [place], [place]) Address [address] [place] [address] Care Team Providers Care Lockstitch Waistband Setter Name Role Phone Salomón Frausto PA-C Unavailable [phone] Edson Miller MD Primary Care Provider [phone] Consuelo Segundo APRN Primary Care Provider [phone] Encounter Details Date Type Department Care Team (Late st Contact Info) Description 12/05/2020 Transcribed Document [facility] [place] Medicine [facility] [place] [address] ProviderGaurang MD [address] [place] [address] Social History Tobacco Use Types Packs/Day Years Used Date Smoking Tobacco: Never Assessed Sex and Gender Information Value Date Recorded Sex Assigned at Not on file Legal Sex Male 5:16 PM CDT Gender Identity Not on file Sexual Orientation Not on file documented as of this encounter Miscellaneous Notes * Cerner Conversion Note - Gaurang ProviderMD - 12/05/2020 4:03 PM CDT Nursing Discharge Summary Entered On: 12/05/2020 16:05 EDT Performed On: 12/05/2020 16:03 EDT by Indu Bansal, design analyst Documentation Discharge Date/Time : 12/05/2020 15:58 EDT [...] on filedocumented in this encounter Care Teams Lockstitch Waistband Setter Relationship Specialty Start Date End Date Edson Miller MD [address] [place] [address] PCP - General Internal Medicine/Pediatrics 07/21/22 07/11/24 Consuelo Segundo, PHOTO PRODUCER 209 [facility] [address] [place] [address] PCP - General Family Medicine 07/12/24 Salomón Frausto PA-C [address] [place] [address] Orthopedist Physician Scale Balancer 05/07/22 documented as of this encounter
--- OUTSIDE RECORDS SUMMARY | 2025-07-07 11:05 | XMS_ITS | Encounter Summary ---
Author Organization [employer] ([place], [place], [place], [place], [place]) Address [address] [place] [address] Care Team Providers Care Bad Credit Collector Name Role Phone Salomón Frausto PA-C Unavailable [phone] Edson Miller MD Primary Care Provider [phone] Consuelo Segundo APRN Primary Care Provider [phone] Encounter Details Date Type Department Care Team (Late st Contact Info) Description 12/05/2020 Transcribed Document [facility] [place] [address] [place] [address] ProviderGaurang MD [address] [place] [address] Social History Tobacco Use Types [...] through the local health department and the [place] Department for Public Health. Those organizations are [...] and need to call 911, notify the resizer operator that you have, or think you [...] clean your hands with an alcohol-based hand telecommunications network planner that contains at least 60% alcohol. Clean your hands often. ??? Wash hands: Wash your hands often with soap and water for at least 20 seconds when visibly dirty. This is especially important after blowing your nose, coughing or sneezing, and going to the bathroom, and before eating or preparing food. ??? Hand telecommunications network planner: Use an alcohol-based hand telecommunications network planner with at least 60% alcohol, covering all [...] and water or put them in the thread spooler. Clean all high-touch surfaces every day. Clean [...] or body fluids on them. ??? Household branch associate and disinfectants: Clean the area or item [...] list of disinfectants can be found here: https://www.epa.gov/pesticide-registration/zmxb-e-tapwbyhcnzqvu-vuh-rmvgmcz-ze rs-cov-2 Neurology Concussion, Adult A concussion is [...] you are dizzy. General instructions ??? Take vufj-yvx-alzrqgh and prescription medicines only as told by your doctor. ??? Do not drink alcohol until your doctor says you can. ??? Watch your symptoms and tell other people to do the same. Other problems can occur after a concussion. Older adults have a higher risk of serious problems. ??? Tell your asbestos worker helper, teachers, school nurse, school counselor, onsite health coach, or link trainer operator about your injury and symptoms. Tell them [...] provider. Document Revised: 03/15/2019 Document Reviewed: 03/15/2019 [employer] Patient Education ? 2020 [employer] documented in this encounter Plan of Treatment Not on file documented as of this encounter Visit Diagnoses Not on filedocumented in this encounter Care Teams Bad Credit Collector Relationship Specialty Start Date End Date Edson Miller MD [address] [place] [address] PCP - General Internal Medicine/Pediatrics 07/21/22 07/11/24 Consueol Segundo, BELLE 209 [facility] [address] [place] [address] PCP - General Family Medicine 07/12/24 Salomón Frausto PA-C [address] [place] [address] Orthopedist Physician Coordinator Hotels 05/07/22 documented as of this encounter
--- OUTSIDE RECORDS SUMMARY | 2025-07-07 11:05 | XMS_ITS | Encounter Summary ---
Author Organization [employer] ([place], [place], [place], [place], [place]) Address [address] [place] [address] Care Team Providers Care Counsellors Name Role Phone Salomón Frausto PA-C Unavailable [phone] Edson Miller MD Primary Care Provider [phone] Consuelo Segundo APRN Primary Care Provider [phone] Encounter Details Date Type Department Care Team (Late st Contact Info) Description 12/05/2020 Transcribed Document [facility] [place] [address] [place] [address] ProviderGaurang MD [address] [place] [address] Social History Tobacco Use Types Packs/Day Years Used Date Smoking Tobacco: Never Assessed Sex and Gender Information Value Date Recorded Sex Assigned at Not on file Legal Sex Male 5:16 PM CDT Gender Identity Not on file Sexual Orientation Not on file documented as of this encounter Miscellaneous Notes * Cerner Conversion Note - Gaurang ProviderMD - 12/05/2020 9:37 AM CDT UM Authorization Entered On: 12/05/2020 9:37 EDT Performed On: 12/05/2020 9:37 EDT by MAEGAN NÚÑEZ, RN-Utilization Review Primary Insurance Authorization Authorization and Policy Numbers : Insurance 1 Health Plan: MEDICARE Policy Number: [id number] Authorization Number: Insurance 2 Health Plan: MEDICAID QMB Policy Number: [id number] Authorization Number: Insurance Primary Name : MEDICARE Policy Number: [id number] Authorized Service Begin Date-Primary : 12/04/2020 EDT Historical Authorization Comments-Primary : No Authorization Comments Found MAEGAN NÚÑEZ, RN-Utilization Review - 12/05/2020 9:37 EDT Electronically signed by Poonam [facility] Conversion Leasing Specialist Cerner at 11/26/2022 6:02 PM CDT documented in this encounter Plan of Treatment Not on file documented as of this encounter Visit Diagnoses Not on filedocumented in this encounter Care Teams Counsellors Relationship Specialty Start Date End Date Edson Miller MD [address] [place] [address] PCP - General Internal Medicine/Pediatrics 07/21/22 07/11/24 Consuelo Segundo, MARBLE MACHINE TENDER 209 [facility] [address] [place] [address] PCP - General Family Medicine 07/12/24 Salomón Frausto PA-C [address] [place] [address] Orthopedist Physician Coffee Shop Attendant 05/07/22 documented as of this encounter
--- OUTSIDE RECORDS SUMMARY | 2025-07-07 11:05 | XMS_ITS | Encounter Summary ---
Author Organization [facility] Address [address] [place] [address] Care Team Providers Care System Support Specialist Name Role Phone Asael Bolden MD Unavailable [phone] Anup Ronquillo MD Unavailable [phone] Consuelo Segundo APRN Primary Care Provider + [phone] Encounter Details Date Type Department Care Team (Late st Contact Info) Description 05/27/2025 Orders Only External Location [address] [place] [address] Provider, External Social History Tobacco Use Types [...] Encounters Date Type Department Care Team (Late Contact Info) Description 07/24/2025 1:00 PM EST Office Visit [facility] Interventional Pain Medicine [address] [place] [address] Richard Taylor MD [address] [facility] [address] [place] [address] documented as of this encounter Procedures Procedure Name Priority Date/Time Associated Diagnosis Comments POC ULTRASOUND 05/27/2025 documented in this encounter Results * POC Imaging (05/27/2025) Anatomical Region Laterality Modality Pelvis Other 05/27/2025 us External Provider IMG POINT OF CARE ULTRASOUND E dited Result - Final documented in this encounter Visit Diagnoses Not on filedocumented in this encounter Additional Health Concerns Assessment Noted Time A fall risk assessment has been complete d for the patient 05/27/2025 1:06 PM EDT A Body Mass Index follow-up plan has been documented for the patient 05/28/2025 7:10 AM EDT documented as of this encounter Care Teams System Support Specialist Relationship Specialty Start Date End Date Consuelo Segundo APRN [address] [place] [id number] PCP - General 07/11/23 Asael Bolden MD [address] [place] [address] Surgeon Neurosurgery 03/16/21 Anup Ronquillo MD [address] [place] [address] Consulting Physician Neurology 10/19/21 documented as of this encounter
--- OUTSIDE RECORDS SUMMARY | 2025-07-07 11:05 | XMS_ITS | Encounter Summary ---
Author Organization Healthcare Address [address] [place] [address] Care Team Providers Care Aviation Manager Name Role Phone Asael Bolden MD Unavailable [phone] Anup Ronquillo MD Unavailable [phone] Consuelo Segundo APRN Primary Care Provider + [phone] Encounter Details Date Type Department Care Team (Latest Contact Info) Description 05/27/2025 Travel Social History Tobacco Use Types Packs/Day Years [...] Description 07/24/2025 1:00 PM EST Office Visit [facility] Interventional Pain Medicine [address] [facility] [place] [address] Richard Taylor MD [address] [facility] [address] [place] [address] documented as of this encounter Visit Diagnoses Not on filedocumented in this encounter Additional Health Concerns Assessment Noted Time A fall risk assessment has been complete d for the patient 05/27/2025 1:06 PM EDT A Body Mass Index follow-up plan has been documented for the patient 05/28/2025 7:10 AM EDT documented as of this encounter Care Teams Aviation Manager Relationship Specialty Start Date End Date Consuelo Segundo APRN [address] [place], [place] [id number] PCP - General 07/11/23 Asael Bolden MD [address] [place] [address] Surgeon Neurosurgery 03/16/21 Anup Ronquillo MD [address] [place] [address] Consulting Physician Neurology 10/19/21 documented as of this encounter
--- OUTSIDE RECORDS SUMMARY | 2025-07-07 11:05 | XMS_ITS | Encounter Summary ---
Author Organization [facility] Address [address] [place] [address] Care Team Providers Care Floor Space Allocator Name Role Phone Asael Bolden MD Unavailable [phone] Anup Ronquillo MD Unavailable [phone] Consuelo Segundo APRN Primary Care Provider + [phone] Reason for Visit * Reason Onset Date Comments [facility] Clinical Concern/Question 05/24/2025 Encounter Details Date Type Department Care Team (Late st Contact Info) Description 05/24/2025 Telephone [facility] Interventional Pain Medicine [address] [facility] [place] [address] Richard Taylor MD [address] [facility] [address] [place] [address] [facility] Clinical Concern/Question Social History Tobacco Use Types Packs/Day Years [...] encounter Miscellaneous Notes * Telephone Encounter - Elva Quiñones RN - 05/27/2025 8:48 AM EDT Script obtained, called patient to notify him, states he is unsure if he will be able to have a tractor sweeper driver; advised not to pick pack worker the Valium and take it unless he had a tractor sweeper driver, and that his tractor sweeper driver wouldneed to remain inside the building, but that if he didn't have a tractor sweeper driver we could proceed with procedure without valium, Verbalized understanding. * Telephone Encounter - Consuelo Fuller - 05/24/2025 4:22 PM EDT Clinical Concern/Question Reason for Call: Dr Taylor/[facility] called in regards to the Valium that the office was to send for his appointment on 05/27. Please call to advise Best contact number: Other: [phone] Optimal time of day to reach caller: ANYTIME Additional comments/information from caller: None Note: Please do not reply to this message. Follow-up communication and further actions as a result of this message need to be communicated with the patient directly, if the patient is not active onMyChart. If the patient is active on MyChart, they will receive notification of the communication/outcome via [employer]. documented in this encounter Plan of Treatment Upcoming Encounters Date Type Department Care Team (Late st Contact Info) Description 07/24/2025 1:00 PM EST Office Visit [facility] Interventional Pain Medicine [address] [place] [address] Richard Taylor MD [address] [facility] [address] [place] [address] documented as of this encounter Visit Diagnoses Not on filedocumented in this encounter Additional Health Concerns Assessment Noted Time A fall risk assessment has been complete d for the patient 05/17/2025 9:12 AM EDT A Body Mass Index follow-up plan has been documented for the patient 05/17/2025 9:35 AM EDT documented as of this encounter Care Teams Floor Space Allocator Relationship Specialty Start Date End Date Consuelo Segundo APRN [address] [place] [address] PCP - General 07/11/23 Asael Bolden MD [address] [place] [address] Surgeon Neurosurgery 03/16/21 Anup Ronquillo MD [address] [place] [address] Consulting Physician Neurology 10/19/21 documented as of this encounter
--- OUTSIDE RECORDS SUMMARY | 2025-07-07 11:05 | XMS_ITS | Data Portability ---
Author Organization [employer] [facility] - [facility] Address [address] [place] [address] Care Team Providers Care Foxer Name Role Phone DANIEL BARCLAY Orthopedic Surgeon NINA ROSS Paraffiner CONSUELO SEGUNDO Primary Care Provider Unavailabl e Assessment Encounter Date Assessment Date Assessment LastModified by Organization Details LastModified Time 05/25/2025 05/25/2025 Discussed with patient we will start on cetirizine 10 mg daily. Patient instructed to return to clinic if symptoms persist or worsen. Patient voiced understanding . fernando Not available 05/25/2025 10:49:10 Plan of Treatment Reminders Order Date Submit Date Provider Last Modified By Organization Details Last Modified Time Details Appointments FOLLOW UP 30 2024 05:00P M Benita Segundo APRN Not available Not available Not available Lab rapid strep group A, throat [address], [address], 07/05/2025 11:05:48 rapid influenza virus A + B and SARS CoV + SARS CoV 2 Ag panel, [place], upper respirato ry specimen [address], [address], 07/05/2025 11:05:49 rapid influenza virus A + B and SARS CoV + SARS CoV 2 Ag panel, IA, upper respirato ry specimen 2024 025 [email or web address] [facility], [address] [place] [address], [phone], 05/25/2025 10:44:04 HbA1c (hemoglob in A1c), blood 2024 025 [email or web address] [facility], [address] [place] [address], [phone], 04/19/2025 18:01:58 lipid panel, serum 2024 025 [facility] [address] [place], [address], 03/29/2025 13:08:20 CBC w/ auto diff 2024 025 [facility] [address] [place], [address], 03/29/2025 13:08:19 TSH + free T4, serum 2024 025 [facility] [address] [place], [address], 03/29/2025 13:08:18 CMP, serum or plasma 2024 025 [facility] [address] [place], [address], 03/29/2025 13:08:19 magnesium , serum or plasma 2024 025 [facility]), [address] [place], [address], 03/29/2025 13:08:22 unlisted lab - BNP+CK mb+D dimer+tro p T 2024 025 [facility] [address] [place], [address], 03/29/2025 13:08:18 vitamin D, 25-hydrox y, total, serum 2024 025 [facility]), [address] [place], [address], 03/29/2025 13:08:21 iron + TIBC + ferritin, serum 2024 025 [facility]), [address] [place], [address], 03/29/2025 13:08:17 cobalamin and folate panel, serum 2024 025 [facility]), [facility] [place], [address], 03/29/2025 13:08:21 Referral None recorded. Procedures None recorded. Surgeries None recorded. Imaging MRI, lumbar spine, w/o contrast - first available appt 2024 [facility]uling, [address] , [place], [address], 04/03/2025 11:14:20 Medication Orders fluticaso ne propionat e 50 mcg/actua tion nasal spray,tye pension 2024 [facility], [address] [place] [address], [id number], 07/05/2025 14:52:31 azithromy val 250 mg tablet 2024 [facility], [address] [place] [address], [address], 07/05/2025 14:52:31 cetirizin e 10 mg tablet 2024 025 [facility], [address] [place] [address], [address], 05/25/2025 10:56:22 aspirin 81 mg tablet,de layed release 2024 025 [facility], [address] [place] [address], [address], 05/04/2025 08:57:46 cefdinir 300 mg capsule 2024 025 [facility], [address] [place] [address], [address], 04/11/2025 05:01:59 Apriso 0.375 gram capsule,e xtended release 2024 025 [facility], [address] [place] [address], [address], 02/26/2025 12:51:26 esomepraz ole magnesium 40 mg capsule,d elayed release 2024 025 [facility], [address] [place] [address], [address], 05/30/2025 13:24:43 gabapenti n 600 mg tablet 2024 025 [facility], [address] [place] [address], [address], 05/30/2025 13:24:44 Patient TargetsNo targets recorded. Patient Instructions Encounter Date Encounter Id Patient Instructions Last Modified By Organization Details Last Modified Time 05/25/2025 [id number] cough: care instructions Not available 05/25/2025 10:44:04 upper respirator y infection (cold): care instructions Not available 05/25/2025 10:44:04 07/05/2025 [id number] sore throat: car e instructions Not available 07/05/2025 11:05:49 upper respirator y infection (cold): care instructions Not available 07/05/2025 11:05:49 Reason for Referral None Reported. Results Created Date Observation Date Name Description Value Unit Range Abnormal Flag Note LastModifiedBy Organization Detail LastModifiedTime 03/28/2003/29/2025 FE+TI BC+FE R iron bind.cap.(TI BC) 334 ug/dL 250-45 0 normal Not Available [facility] ([facility]) [address] [place], [address], 03/29/2025 13:08:17 03/28/20 25 03/29/2025 FE+TI BC+FE R UIBC 206 ug/dL 111-34 3 normal Not Available [facility] ([facility]) [address] [place], [address], 03/29/2025 13:08:17 03/28/20 25 03/29/2025 FE+TI BC+FE R iron 128 ug/dL 38-169 normal Not Available [facility] ([facility]) [address] [place], [address], 03/29/2025 13:08:17 03/28/20 25 03/29/2025 FE+TI BC+FE R iron saturation 38 % 15-55 normal Not Available [facility] ([facility]) [address] [place], [address], 03/29/2025 13:08:17 03/28/20 25 03/29/2025 FE+TI BC+FE R ferritin 257 NG/mL 30-400 normal Not Available [facility] ([facility]) [address] [place], [address], 03/29/2025 13:08:17 03/28/20 25 03/29/2025 BNP+C K MB+D DIMER +TROP T creatine kinase (CK), mb 2.0 NG/mL 0.0-10 .4 Not Available [facility] ([facility]) [address] [place], [address], 03/29/2025 13:08:18 03/28/20 25 03/29/2025 BNP+C K MB+D DIMER +TROP T troponin T(highly sensitive) 9 NG/L 0-22 In order to disti nguis h acute eleva tions of high sensi tive Tropo song from other clini asndie condi tions , the Unive rsal Defin ition of myoca rdial infar ction stres ses clini sandie asses sment and the need for seria l measu remen ts to obser ve a rise and/o r fall above the upper limit of the refer ence inter braden. Not Available [facility] ([facility]) [address] [facility], [place], [address], 03/29/2025 13:08:18 03/28/20 25 03/29/2025 BNP+C K MB+D DIMER +TROP T B-type natriuretic peptide 19.3 pg/mL 0.0-10 0.0 Sieme ns [facility] metho dolog y Not Available [facility] ([facility]) [address] [facility], [place], [address], 03/29/2025 13:08:18 03/28/20 25 03/29/2025 BNP+C K MB+D DIMER +TROP T D-dimer 0.49 mg/L_ feu 0.00-0 .49 Accor ding to the assay manuf actur er's publi shed packa ge inser t, a thompson l (<0.5 0 mg/L FEU) D-dim er resul t in conju nctio n with a non-h igh clini sandie proba bilit y asses sment , exclu gian deep vein throm bosis (DVT) and pulmo nary embol ism (PE) with high sensi tivit y. D-dim er value s incre ase with age and this can make VTE exclu paige of an older popul ation diffi cult. To addre ss this, the Ameri can Colle ge of Physi cians , based on best avail able evide nce and recen t guide lines , recom mends that clini cians use age-a djust ed D-dim er thres holds in patie nts great er than 50 years of age with: a) a low proba bilit y of PE who do not meet all Pulmo nary Embol ism Rule Out Crite sita, or b) in those with inter media te proba bilit y of PE. The formu la for an age-a djust ed D-dim er cut-o ff is age/ 100 . For examp le, a 60 year old patie nt would have an age-a djust ed cut-o ff of 0.60 mg/L FEU and an 80 year old 0.80 mg/L FEU. Not Available [facility] ([facility]) [address] [place], [address], 03/29/2025 13:08:18 03/28/20 25 03/29/2025 TSH+F REE T4 TSH 4.150 uIU/m L 0.450- 4.500 normal Not Available [facility] ([facility]) [address] [place], [address], 03/29/2025 13:08:18 03/28/20 25 03/29/2025 TSH+F REE T4 T4,free(dire ct) 1.00 NG/dL 0.82-1 .77 normal Not Available [facility] ([facility]) [address] [place], [address], 03/29/2025 13:08:18 03/28/20 25 03/29/2025 CBC WITH DIFFE RENTI AL/PL ATELE T WBC 5.0 x10e3 /uL 3.4-10 .8 normal Not Available [facility] ([facility]) [address] [place], [address], 03/29/2025 13:08:19 03/28/20 25 03/29/2025 CBC WITH DIFFE RENTI AL/PL ATELE T RBC 5.26 x10e6 /uL 4.14-5 .80 normal Not Available [facility] ([facility]) [address] [place], [address], 03/29/2025 13:08:19 03/28/20 25 03/29/2025 CBC WITH DIFFE RENTI AL/PL ATELE T hemoglobin 16.5 g/dL 13.0-1 7.7 normal Not Available [facility] ([facility]) [address] [place], [address], 03/29/2025 13:08:19 03/28/20 25 03/29/2025 CBC WITH DIFFE RENTI AL/PL ATELE T hematocrit 49.2 % 37.5-5 1.0 normal Not Available [facility] ([facility]) [address] [place], [address], 03/29/2025 13:08:19 03/28/20 25 03/29/2025 CBC WITH DIFFE RENTI AL/PL ATELE T MCV 94 fL 79-97 normal Not Available [facility] ([facility]) [address] [place], [address], 03/29/2025 13:08:19 03/28/20 25 03/29/2025 CBC WITH DIFFE RENTI AL/PL ATELE T MCH 31.4 pg 26.6-3 3.0 normal Not Available [facility] ([facility]) [address] [place], [address], 03/29/2025 13:08:19 03/28/20 25 03/29/2025 CBC WITH DIFFE RENTI AL/PL ATELE T MCHC 33.5 g/dL 31.5-3 5.7 normal Not Available [facility] ([facility]) [address] [place], [address], 03/29/2025 13:08:19 03/28/20 25 03/29/2025 CBC WITH DIFFE RENTI AL/PL ATELE T RDW 12.7 % 11.6-1 5.4 Not Available [facility] ([facility]) [address] [place], [address], 03/29/2025 13:08:19 03/28/20 25 03/29/2025 CBC WITH DIFFE RENTI AL/PL ATELE T platelets 177 x10e3 /uL 150-45 0 normal Not Available [facility] ([facility]) [address] [place], [address], 03/29/2025 13:08:19 03/28/20 25 03/29/2025 CBC WITH DIFFE RENTI AL/PL ATELE T neutrophils 45 % not estab. normal Not Available [facility] ([facility]) [address] [place], [address], 03/29/2025 13:08:19 03/28/20 25 03/29/2025 CBC WITH DIFFE RENTI AL/PL ATELE T lymphs 38 % not estab. normal Not Available [facility] ([facility]) [address] [place], [address], 03/29/2025 13:08:19 03/28/20 25 03/29/2025 CBC WITH DIFFE RENTI AL/PL ATELE T monocytes 11 % not estab. normal Not Available [facility] ([facility]) [address] [place], [address], 03/29/2025 13:08:19 03/28/20 25 03/29/2025 CBC WITH DIFFE RENTI AL/PL ATELE T eos 5 % not estab. normal Not Available [facility] ([facility]) [address] [place], [address], 03/29/2025 13:08:19 03/28/20 25 03/29/2025 CBC WITH DIFFE RENTI AL/PL ATELE T basos 1 % not estab. normal Not Available [facility] ([facility]) [address] [place], [address], 03/29/2025 13:08:19 03/28/20 25 03/29/2025 CBC WITH DIFFE RENTI AL/PL ATELE T immature cells MANUFACTURING OPERATIONS MANAGER Not Available [facility] ([facility]) [address] [place], [address], 03/29/2025 13:08:19 03/28/20 25 03/29/2025 CBC WITH DIFFE RENTI AL/PL ATELE T neutrophils (absolute) 2.3 x10e3 /uL 1.4-7. 0 normal Not Available [facility] ([facility]) [address] [facility], [place], [address], 03/29/2025 13:08:19 03/28/20 25 03/29/2025 CBC WITH DIFFE RENTI AL/PL ATELE T lymphs (absolute) 1.9 x10e3 /uL 0.7-3. 1 normal Not Available [facility] ([facility]) [address] [place], [address], 03/29/2025 13:08:19 03/28/20 25 03/29/2025 CBC WITH DIFFE RENTI AL/PL ATELE T monocytes(ab solute) 0.5 x10e3 /uL 0.1-0. 9 normal Not Available [facility] ([facility]) [address] [place], [address], 03/29/2025 13:08:19 03/28/20 25 03/29/2025 CBC WITH DIFFE RENTI AL/PL ATELE T eos (absolute) 0.2 x10e3 /uL 0.0-0. 4 normal Not Available [facility] ([facility]) [address] [place], [address], 03/29/2025 13:08:19 03/28/20 25 03/29/2025 CBC WITH DIFFE RENTI AL/PL ATELE T baso (absolute) 0.0 x10e3 /uL 0.0-0. 2 normal Not Available [facility] ([facility]) [address] [place], [address], 03/29/2025 13:08:19 03/28/20 25 03/29/2025 CBC WITH DIFFE RENTI AL/PL ATELE T immature granulocytes 0 % not estab. Not Available [facility] ([facility]) [address] [facility], [place], [address], 03/29/2025 13:08:19 03/28/20 25 03/29/2025 CBC WITH DIFFE RENTI AL/PL ATELE T immature grans (abs) 0.0 x10e3 /uL 0.0-0. 1 Not Available [facility] ([facility]) [address] [facility], [place], [address], 03/29/2025 13:08:19 03/28/20 25 03/29/2025 CBC WITH DIFFE RENTI AL/PL ATELE T NRBC MANUFACTURING OPERATIONS MANAGER Not Available [facility] ([facility]) [address] [facility], [place], [address], 03/29/2025 13:08:19 03/28/20 25 03/29/2025 CBC WITH DIFFE RENTI AL/PL ATELE T hematology comments: MANUFACTURING OPERATIONS MANAGER Not Available [facility] ([facility]) [address] [facility], [place], [address], 03/29/2025 13:08:19 03/28/20 25 03/29/2025 COMP. METAB OLIC PANEL (14) glucose 106 mg/dL 70-99 above high normal Not Available [facility] ([facility]) [address] [facility], [place], [address], 03/29/2025 13:08:19 03/28/20 25 03/29/2025 COMP. METAB OLIC PANEL (14) BUN 15 mg/dL 8-27 normal Not Available [facility] ([facility]) [address] [place], [address], 03/29/2025 13:08:19 03/28/20 25 03/29/2025 COMP. METAB OLIC PANEL (14) creatinine 0.98 mg/dL 0.76-1 .27 normal Not Available [facility] ([facility]) [address] [facility], [place], [address], 03/29/2025 13:08:19 03/28/20 25 03/29/2025 COMP. METAB OLIC PANEL (14) eGFR 86 mL/mi n/1.7 3 >59 normal Not Available [facility] ([facility]) [address] [facility], [place], [address], 03/29/2025 13:08:19 03/28/20 25 03/29/2025 COMP. METAB OLIC PANEL (14) BUN/creatini ne ratio 15 10-24 normal Not Available [facility] ([facility]) [address] [facility] [place], [address], 03/29/2025 13:08:19 03/28/20 25 03/29/2025 COMP. METAB OLIC PANEL (14) sodium 140 mmol/ L 134-14 4 normal Not Available [facility] ([facility]) [address] [facility] [place], [address], 03/29/2025 13:08:19 03/28/20 25 03/29/2025 COMP. METAB OLIC PANEL (14) potassium 4.3 mmol/ L 3.5-5. 2 normal Not Available [facility] ([facility]) [address] [facility] [place], [address], 03/29/2025 13:08:19 03/28/20 25 03/29/2025 COMP. METAB OLIC PANEL (14) chloride 103 mmol/ L 96-106 normal Not Available [facility] ([facility]) [address] [facility] [place], [address], 03/29/2025 13:08:19 03/28/20 25 03/29/2025 COMP. METAB OLIC PANEL (14) carbon dioxide, total 21 mmol/ L 20-29 normal Not Available [facility] ([facility]) [address] [facility] [place], [address], 03/29/2025 13:08:19 03/28/20 25 03/29/2025 COMP. METAB OLIC PANEL (14) calcium 9.7 mg/dL 8.6-10 .2 normal Not Available [facility] ([facility]) [address] [facility] [place], [address], 03/29/2025 13:08:19 03/28/20 25 03/29/2025 COMP. METAB OLIC PANEL (14) protein, total 6.9 g/dL 6.0-8. 5 normal Not Available [facility] ([facility]) [address] [facility] [place], [address], 03/29/2025 13:08:19 03/28/20 25 03/29/2025 COMP. METAB OLIC PANEL (14) albumin 4.5 g/dL 3.9-4. 9 normal Not Available [facility] ([facility]) [address] [facility] [place], [address], 03/29/2025 13:08:19 03/28/20 25 03/29/2025 COMP. METAB OLIC PANEL (14) globulin, total 2.4 g/dL 1.5-4. 5 Not Available [facility] ([facility]) [address] [facility] [place], [address], 03/29/2025 13:08:19 03/28/20 25 03/29/2025 COMP. METAB OLIC PANEL (14) bilirubin, total 0.6 mg/dL 0.0-1. 2 normal Not Available [facility] ([facility]) [address] [facility] [place], [address], 03/29/2025 13:08:19 03/28/20 25 03/29/2025 COMP. METAB OLIC PANEL (14) alkaline phosphatase 122 IU/L 44-121 above high normal Not Available [facility] ([facility]) [address] [facility] [place], [address], 03/29/2025 13:08:19 03/28/20 25 03/29/2025 COMP. METAB OLIC PANEL (14) AST (SGOT) 19 IU/L 0-40 normal Not Available [facility] ([facility]) [address] [facility] [place], [address], 03/29/2025 13:08:19 03/28/20 25 03/29/2025 COMP. METAB OLIC PANEL (14) ALT (SGPT) 14 IU/L 0-44 normal Not Available [facility] ([facility]) [address] [facility] [place], [address], 03/29/2025 13:08:19 03/28/20 25 03/29/2025 LIPID PANEL cholesterol, total 154 mg/dL 100-19 9 normal Not Available [facility] ([facility]) [address] [place], [address], 03/29/2025 13:08:20 03/28/20 25 03/29/2025 LIPID PANEL triglyceride s 131 mg/dL 0-149 normal Not Available [facility] ([facility]) [address] [place], [address], 03/29/2025 13:08:20 03/28/20 25 03/29/2025 LIPID PANEL HDL cholesterol 44 mg/dL >39 normal Not Available [facility] ([facility]) [address] [place], [address], 03/29/2025 13:08:20 03/28/20 25 03/29/2025 LIPID PANEL VLDL cholesterol sandie 23 mg/dL 5-40 Not Available [facility] ([facility]) [address] [place], [address], 03/29/2025 13:08:20 03/28/20 25 03/29/2025 LIPID PANEL LDL chol calc ([facility]) 87 mg/dL 0-99 Not Available [facility] ([facility]) [address] [place], [address], 03/29/2025 13:08:20 03/28/20 25 03/29/2025 LIPID PANEL LDL calc comment: MANUFACTURING OPERATIONS MANAGER Not Available [facility] ([facility]) [address] [facility], [place], [address], 03/29/2025 13:08:20 03/28/20 25 03/29/2025 VITAM IN B12 AND FOLAT E vitamin B12 360 pg/mL 232-12 45 normal Not Available [facility] ([facility]) [address] [facility], [place], [address], 03/29/2025 13:08:21 03/28/20 25 03/29/2025 VITAM IN B12 AND FOLAT E folate (folic acid), serum 5.1 NG/mL >3.0 normal A serum folat e brian ntrat ion of less than 3.1 ng/mL is consi dered to repre sent clini sandie defic iency . Not Available [facility] ([facility]) [address] [facility], [place], [address], 03/29/2025 13:08:21 03/28/20 25 03/29/2025 VITAM IN D, 25-HY DROXY vitamin D, 25-hydroxy 32.7 NG/mL 30.0-1 00.0 Vitam in D defic iency has been defin ed by the Insti tute of Medic ine and an Endoc rine Socie ty pract ice guide line as a level of serum 25-OH vitam in D less than 20 ng/mL (1,2) . The Endoc rine Socie ty went on to furth er defin e vitam in D insuf ficie ncy as a level betwe en 21 and 29 ng/mL (2). 1. IOM (Inst itute of Medic ine). 2009. Dieta ry refer ence intak es for calci um and D. Douglas moffett [place]: The [facility] . 2. [place], Amy esquivel [place], Kylah off-F errar i BARRERA, et al. Evalu ation , treat ment, and preve ntion of vitam in D defic iency : an Endoc rine Socie ty clini sandie pract ice guide line. JCEM. 2010; 96(7) :1911 -30. Not Available [facility] ([facility]) [address] [facility], [place], [address], 03/29/2025 13:08:21 03/28/20 25 03/29/2025 MAGNE SIUM magnesium 2.3 mg/dL 1.6-2. 3 normal Not Available [facility] ([facility]) [address] [facility], [place], [address], 03/29/2025 13:08:22 04/19/20 25 04/19/2025 HbA1c (hemo globi n A1c), blood HbA1c 6.5 Not Available [address], [address], 04/19/2025 16:41:26 05/25/20 25 05/25/2025 rapid influ kayleen virus A + B and SARS CoV + SARS CoV 2 Ag panel , [place], upper respi rator y speci men SARS-CoV2 negati ve Not Available [address], [address], 05/25/2025 10:16:23 05/25/20 25 05/25/2025 rapid influ kayleen virus A + B and SARS CoV + SARS CoV 2 Ag panel , [place], upper respi rator y speci men Flu A negati ve Not Available [address], [address], 05/25/2025 10:16:23 05/25/20 25 05/25/2025 rapid influ kayleen virus A + B and SARS CoV + SARS CoV 2 Ag panel , [place], upper respi rator y speci men Flu B negati ve Not Available [address], [address], 05/25/2025 10:16:23 07/05/20 25 07/05/2025 rapid influ kayleen virus A + B and SARS CoV + SARS CoV 2 Ag panel , [place], upper respi rator y speci men SARS-CoV2 negati ve Not Available [facility] - [address], [address], 07/05/2025 10:38:08 07/05/20 25 07/05/2025 rapid influ kayleen virus A + B and SARS CoV + SARS CoV 2 Ag panel , [place], upper respi rator y speci men Flu A negati ve Not Available [facility] - [address], [address], 07/05/2025 10:38:08 07/05/20 25 07/05/2025 rapid influ kayleen virus A + B and SARS CoV + SARS CoV 2 Ag panel , [place], upper respi rator y speci men Flu B negati ve Not Available [facility] - [address], [address], 07/05/2025 10:38:08 07/05/20 25 07/05/2025 rapid strep group A, throa t Strep negati ve Not Available [facility] - [address], [address], 07/05/2025 10:37:54 02/13/20 25 07/22/2024 CT, angio gram, abdom en + pelvi s, w/ contr ast No observ ation record ed. [email or web address] [facility] ([facility]) [address], [place], [address], 02/15/2025 10:55:17 04/03/20 25 04/03/2025 MRI, lumba r spine , w/o contr ast [facility] [address] [place] [address] Phone: Fax: Name: KUSH MATA Exam Date: 025 : 960 Age 64 years Gender : M Access ion: [id number] Physic cassidy: PIETER SEGUNDO CRUZ Facili ty: [facility] Facili ty HSV: Outpat ient Exam: MRI SPINE LUMBAR WO PROCED URE DESCRI PTION: MRI SPINE LUMBAR WO CLINIC AL INDICA TION: Protru paige of lumbar interv ertebr al disc old back pain with radiat ion into the bilate ral lower extrem ities. TECHNI QUE: Multip lanar multis equenc e MR images were obtain ed of the lumbar spine withou t intrav enous contra st. Unless otherw ise specif ied, incide ntal findin gs do not requir e dedica pravin imagin g follow -up. COMPAR TIM: CT of abdome n and pelvis perfor med on 2023. FINDIN GS: The alignm ent of lumbar spine is unrema rkable . There is degene rative disc diseas e at all levels . The bone marrow signal intens ity is unrema rkable . There are scatte red jessica iomas throug hout the thorac ic spine, lumbar spine, and sacrum . The conus is at L1. At L1-2: There is a circum ferent ial disc bulge with centra l disc protru paige and annula r tear. There is mild facet arthro ana. There is no neural forami nal narrow ing. There is mild spinal canal narrow ing. At L2-3: There is a circum ferent ial disc bulge. There is mild facet arthro ana. There is no neural forami nal narrow ing. There is mild spinal canal narrow ing. At L3-4: There is a circum ferent ial disc bulge. There is mild facet arthro ana. There is no neural forami nal narrow ing. There is no spinal canal narrow ing. At L4-5: There is a circum ferent ial disc bulge. There is mild facet arthro ana. There is no neural forami nal narrow ing. There is no spinal canal narrow ing. At L5-S1: There is a circum ferent ial disc bulge. There is mild facet arthro ana. There is no neural forami nal narrow ing. There is no spinal canal narrow ing. Impres paige: Multil evel degene rative change s of the lumbar spine as descri bed above. Electr onical ly signed by: Josiah duncan MD 2024 11:08 AM EDT RP Workst ation: [id number] Dictat ed By: Josiah Combs Transc ribed By: Transc ribed On: 025 10:32 AM Electr onical ly signed by: Josiah Combs 025 Legall y authen ticate d by SRINIVAS RIVER MD 04-03 10:32: 50 Thank you for referr ing KUSH MATA to [facility]. Legall y authen ticate d by SRINIVAS RIVER MD 04-03 10:32: 50 CC'ed Logic: Orderi ng Provid er: YESSICA ARROYO CC Provid er: YESSICA ARROYO Attend ing Provid er: YESSICA ARROYO Referr ing Provid er: YESSICA ARROYO Admitt ing Provid er: YESSICA ARROYO [address] (Radiology) [address] [place] [address] [place], [address], 04/12/2025 12:07:25 04/04/20 25 03/22/2025 CT, chest , w/ contr ast No observ ation record ed. [address] [place], [address], 04/05/2025 11:21:39 04/18/20 25 04/18/2025 CT, abdom en, w/o contr ast No observ ation record ed. [address], [place], [address], 06/28/2025 15:54:07 Result Notes Documentation Provider Name and Address Organization Details Recorded Time Mri, Lumbar Spine, W/o Contrast : [address] [place] [address] Name: KUSH MATA Exam Date: 04/03/2025 : 1960 Age 64 years Gender: M Physician: CONSUELO SEGUNDO Facility: [facility] Facility HSV: Outpatient Exam: MRI SPINE LUMBAR WO PROCEDURE DESCRIPTION: MRI SPINE LUMBAR WO CLINICAL INDICATION: Protrusion of lumbar intervertebral disc old back pain with radiation into the bilateral lower extremities. TECHNIQUE: Multiplanar multisequence MR images were obtained of the lumbar spine without intravenous contrast. Unless otherwise specified, incidental findings do not require dedicated imaging follow-up. COMPARISON: CT of abdomen and pelvis performed on 07/22/2024. FINDINGS: The alignment of lumbar spine is unremarkable. There is degenerative disc disease at all levels. The bone marrow signal intensity is unremarkable. 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 The conus is at L1. At L1-2: There is a circumferential disc bulge with central disc protrusion and annular tear. There is mild facet arthropathy. There is no neural foraminal narrowing. There is mild spinal canal narrowing. At L2-3: There is a circumferential disc bulge. There is mild facet arthropathy. There is no neural foraminal narrowing. There is mild spinal canal narrowing. At L3-4: There is a circumferential disc bulge. There is mild facet arthropathy. There is no neural foraminal narrowing. There is no spinal canal narrowing. At L4-5: There is a circumferential disc bulge. There is mild facet arthropathy. There is no neural foraminal narrowing. There is no spinal canal narrowing. At L5-S1: There is a circumferential disc bulge. There is mild facet arthropathy. There is no neural foraminal narrowing. There is no spinal canal narrowing. Impression: Multilevel degenerative changes of the lumbar spine as described above. Electronically signed by: Josiah Moore MD 04/03/2025 11:08 AM EDT Dictated By: Josiah Moore Transcribed By: Transcribed On: 04/03/2025 10:32 AM Electronically signed by: Josiah Moore 04/03/2025 Legally authenticated by DERICK RIVER MD 2025-04-03 10:32:50 Thank you for referring KUSH MATA to [facility]. Legally authenticated by DERICK RIVER MD 2025-04-03 10:32:50 CC'ed Logic: Ordering Provider: YESSICA GARCIA CC Provider: YESSICA GARCIA Attending Provider: YESSICA GARCIA Referring Provider: YESSICA GARCIA Admitting Provider: YESSICA Segundo, [employer] [address] [place], [address], [employer] 04/12/2025 12:07:25 Problems Name Problem SNOMED Code Status Onset Date Resolution Date Notes Provider Name and Address Organization Details Recorded Time Type 2 diabetes mellitus 73106256 Active 2021 Kimmy hsu, [employer] 5 16:03:13 Neuropathy 511927930 Active 2021 MORENO hsu, [employer] 2 10:11:01 Essential hypertensio n 49332555 Active 2022 NIKO NAVA [address], [address], [place] [employer] 3 16:49:00 COVID-19 108447759 Active 2022 NIKO NAVA [address], [address], [place] [employer] 3 08:58:30 Mixed hyperlipide kiet 817147159 Active 2022 NIKO NAVA [address], [address], [email or web address] 3 12:18:26 Benign prostatic hyperplasia 899261289 Active 2023 NIKO NAVA [address], [address], [email or web address] 4 11:19:02 Neuropathy due to type 2 diabetes mellitus 3332262091557 06 Active 2023 NIKO NAVA [address], [address], [email or web address] 4 16:41:35 Hemorrhoids 37934928 Active 2023 NIKO NAVA [address], [address], [email or web address] 16:45:17 Increased frequency of urination 175813228 Active 2023 NIKO NAVA [address], [address], [email or web address] 16:45:44 Lesion of skin of right ear 7672596870219 9106 Active [address], [address], [email or web address] 16:41:04 Skin lesion 50939724 Active 2023 NIKO NAVA [address], [address], [email or web address] 4 16:41:16 Cough 26319167 Active 2023 Gerda Reed NP [address] [place] [address], [address], [email or web address] 5 10:27:23 Slurred speech 322907478 Active 2023 Anca Donaldson NP [address] [place] [address], [address], [email or web address] 4 12:56:59 Headache 23433784 Active 2023 Anca Donaldson NP [address] [place] [address], [address], [email or web address] 4 12:57:08 Nausea and vomiting 32650604 Active 2023 Anca Donaldson NP [address] [place] [address], [address], [employer] 4 12:57:13 Closed injury of head 173768108413 Active 2023 Anca Donaldson, KAYLEIGH [address] [place], [address], [employer] 4 12:57:28 Fever 730029752 Active 2023 Kimmy hsu, [employer] 4 17:00:08 Type 2 diabetes mellitus without complicatio n 863823977 Active 2023 Kimmy hsu, [employer] 4 16:46:21 Hyperlipide kiet 74218291 Active 2024 Kimmy hsu, [employer] 5 12:16:58 Diabetes mellitus 84205677 Active 2024 Kimmy hsu, [employer] 5 16:41:09 Upper respiratory infection 30154790 Active 2024 eGrda Reed NP [address] [place] [address], [address], [employer] 5 10:43:00 Nasal congestion 44419882 Active 2024 MICHAEL MCCOLLUM NP [address] [place] [address], [address], [email or web address] 5 11:00:47 Acute left otitis media 486049311 Active 2024 MICHAEL MCCOLLUM NP [address] [place] [address], [address], [email or web address] 5 11:01:12 Notes:Some problems listed i n Documents: #[id number], #[id number] could not be added to this patient's chart. Please review these documents and add these problems to the patient's chart manually as needed. Problem Notes None recorded. Procedures Surgical History Date Name Laterality Status Provider Name and Address Organization Details Recorded Time 4 extraction of cataract completed Kimmy [place] [employer] 07/17/2024 16:41:15 Orthopedic Surgery completed MORENO MARTINEZ [employer] 07/20/2022 09:59:44 Imaging Results None recorded. Procedure Notes None recorded. Medical Equipment None Reported. Allergies Allergen ID Allergen Name Allergen Category Reaction Reaction Severity Criticality Documentation Date Start Date Code Code System Note Provider Name and Address Organization Details Recorded Time 88983 Levaquin medicatio n Not available Not available Not available 07/20/2022 21282 2 RxNorm MORENO hsu, [employer] 2 11:30:32 17794 Flagyl medicatio n Not available Not available Not available 07/20/2022 6 RxNorm MORENO hsu, [employer] 2 11:30:41 40231 lithium Not available Not available Not available Not available 07/20/2022 6448 RxNorm MORENO hsu, [employer] 2 11:30:46 76142 prednison e medicatio n Not available Not available Not available 07/20/2022 8640 RxNorm MORENO hsu, [employer] 2 11:30:59 46886 Singulair medicatio n Not available Not available Not available 07/07/2023 15872 9 RxNorm KYUNG hsu, [employer] 3 16:31:08 57071 Asmanex medicatio n Not available Not available Not available 07/07/2023 70170 2 RxNorm KYUNG YEPEZ [place], [employer] 3 16:31:22 94572 Gralise medicatio n Not available Not available Not available 07/01/20252012 68745 76 RxNorm Grali se Not Available [employer] - [employer] - prod 5 16:30:42 57561 Lipitor medicatio n Not available Not available Not available 07/01/2025 39645 5 RxNorm Not Available [employer] - External [employer] - prod 5 16:30:42 17454 baclofen medicatio n vomiting severe high 07/01/20252022 1292 RxNorm Tia hsu, [place] - [employer] 10:26:35 32674 atorvasta tin calcium medicatio n Not available Not available low 07/01/20252018 58398 RxNorm unrec ogniz ed react ion (text : Unkno wn - Patie nt state s they do not know rxn detai ls, code: 95567 5006) (from exter nal sourc e) Not Available [employer] - External Data Service - prod 16:31:25 18128 aztreonam medicatio n other Not available low 07/01/20252024 1272 RxNorm Azact am Not Available [employer] - External Data [employer] - prod 16:31:25 31480 gabapenti n medicatio n Not available Not available low 07/01/20252015 26678 RxNorm unrec ogniz ed react ion (text : Unkno wn - Patie nt state s they do not know rxn detai ls, code: 49328 5006) (from exter nal sourc e) Not Available [employer] - External Data [employer] - prod 16:31:25 80766 Latex (substanc e) environme nt,medica tion Not available Not available low 07/01/20252015 71837 8007 SNOMED unrec ogniz ed react ion (text : Unkno wn - Patie nt state s they do not know rxn detai ls, code: 65734 5006) (from exter nal sourc e) Not Available [employer] - External Data [employer] - prod 16:31:25 69303 levofloxa val medicatio n Not available Not available low 07/01/20252015 59080 RxNorm unrec ogniz ed react ion (text : Unkno wn - Patie nt state s they do not know rxn detai ls, code: 33507 5006) (from exter nal sourc e) Not Available [employer] - External Data Service - prod 5 16:31:25 84566 metronida zole medicatio n Not available Not available low 07/01/20252015 6922 RxNorm unrec ogniz ed react ion (text : Unkno wn - Patie nt state s they do not know rxn detai ls, code: 40318 5006) (from [facility]) Not Available [employer] - External Data Service - prod 16:31:25 42293 mometason e furoate medicatio n other Not available low 07/01/20252015 09799 RxNorm unrec ogniz ed react ion (text : Unkno wn - Patie nt state s they do not know rxn detai ls, code: 19520 5006) (from [facility]) Not Available [employer] - External Data Service - prod 16:31:[address] medicatio n Not available Not available low 07/01/20252015 98130 RxNorm unrec ogniz ed react ion (text : Unkno wn - Patie nt state s they do not know rxn detai ls, code: 79123 5006) (from [facility]) Not Available [employer] - External Data Service - prod 16:31:25 50988 prednisol one medicatio n Not available Not available low 07/01/20252015 8638 RxNorm unrec ogniz ed react ion (text : Unkno wn - Patie nt state s they do not know rxn detai ls, code: 99330 5006) (from [facility]) Not Available [employer] - External Data Service - prod 16:31:25 96939 atorvasta tin medicatio n Not available Not available Not available 07/01/2025 03861 RxNorm unrec ogniz ed react ion (text : Adver se react ion to subst ance, code: 87308 0009) (from [facility]) Not Available [employer] - External Data Service - prod 16:31:33 48986 Azactam medicatio n Not available Not available Not available 07/01/202560767 1 RxNorm Not Available [employer] - External Data [employer] - prod 16:31:40 10654 topiramat e medicatio n Not available Not available Not available 07/01/20252021 65956 RxNorm Not Available [employer] - External Data [employer] - prod 16:31:40 Medications Name Sig Start Date Stop Date Status Note LastModified by Organization Details LastModified Time vitamin d3 50 mcg (1999 ut) TAKE 1 CAPSULE BY MOUTH ONCE DAILY 07/07 completed Not Available Not Available Not Available nystatin 100,000 unit/mL oral suspension TAKE FIVE ML BY MOUTH FOUR TIMES DAILY 10/25 completed Not Available Not Available Not Available gabapentin 600 mg tablet take 1 tablet by mouth 3 times a day active Not Available Not Available No t Available doxycyclin e hyclate 100 mg capsule TAKE ONE CAPSULE BY MOUTH TWICE DAILY FOR 5 DAYS 04/17 completed Not Available Not Available Not Available atorvastat in 20 mg tablet TAKE ONE TABLET BY MOUTH EVERY DAY active Not Available Not Available No t Available Carafate 100 mg/mL oral suspension TAKE 10 ML BY MOUTH 4 TIMES DAILY, NEEDED. 07/20 completed Not Available Not Available Not Available hydrocorti sone-pramo xine 2.5 %-1 % rectal cream Insert 1 applicat ion every 8 hours by rectal route as needed. 2023 active Not Available Not Available Not Avai lable cetirizine 10 mg tablet Take 1 tablet every day by mouth for 30 days. active Not Available Not Available No t Available oxybutynin chloride ER 10 mg tablet,ext ended release 24 hr TAKE ONE TABLET BY MOUTH DAILY 10/25 completed Not Available Not Available Not Available azithromyc in 250 mg tablet TAKE 2 TABLETS (500 MG) BY ORAL ROUTE ONCE DAILY FOR 1 DAY THEN 1 TABLET (250 MG) BY ORAL ROUTE ONCE DAILY FOR 4 DAYS 2024 active Not Available Not Available Not Avai lable ibuprofen 800 mg tablet TAKE 1 TABLET BY MOUTH THREE TIMES DAILY 07/20 completed Not Available Not Available Not Available benzonatat e 200 mg capsule TAKE ONE CAPSULE BY MOUTH THREE TIMES DAILY NEEDED 07/17 completed Not Available Not Available Not Available meloxicam 15 mg tablet TAKE 1 TABLET BY MOUTH DAILY. 07/20 completed Not Available Not Available Not Available propranolo l ER 60 mg capsule,24 hr,extende d release TAKE 1 CAPSULE BY MOUTH DAILY. 07/20 completed Not Available Not Available Not Available gabapentin 400 mg capsule TAKE 1 CAPSULE BY MOUTH THREE TIMES DAILY 07/20 completed Not Available Not Available Not Available Accu-Chek Softclix Lancets USE DIRECTED ONCE DIALY. active Not Available Not Available No t Available clopidogre l 75 mg tablet TAKE ONE TABLET BY MOUTH EVERY DAY active Not Available Not Available No t Available amlodipine 5 mg tablet TAKE ONE TABLET BY MOUTH EVERY DAY active Not Available Not Available No t Available ciprofloxa val 500 mg tablet TAKE 1 TABLET ORAL ROUTE EVERY 12 HOURS FOR 30 DAYS 07/07 completed Not Available Not Available Not Available sulfametho xazole 800 mg-trimeth oprim 160 mg tablet TAKE ONE TABLET BY MOUTH EVERY TWELVE HOURS 10/25 completed Not Available Not Available Not Available aspirin 81 mg tablet,del ayed release Take 1 tablet every day by oral route. 2024 active Not Available Not Available Not Avai lable tramadol 50 mg tablet TAKE ONE TABLET BY MOUTH THREE TIMES DAILY NEEDED FOR 7 DAYS FOR FOR BACK pain active Not Available Not Available No t Available amantadine HCl 100 mg capsule TAKE ONE (1) CAPSULE BY MOUTH DAILY FOR TREMORS 07/20 completed Not Available Not Available Not Available triamcinol one acetonide 0.1 % topical cream APPLY A THIN LAYER TO THE AFFECTED AREA(S) TWCIE DAILY. 07/20 completed Not Available Not Available Not Available meloxicam 7.5 mg tablet 07/07 completed Not Available Not Available Not Available propranolo l 10 mg tablet Take one (1) tablet by mouth twice a day for tremors active Not Available Not Available No t Available amoxicilli n 875 mg tablet TAKE 1 TABLET EVERY 12 HOURS 07/20 completed Not Available Not Available Not Available prednisolo ne acetate 1 % eye drops,susp ension 09/03 completed Not Available Not Available Not Available methocarba mol 750 mg tablet TAKE ONE TABLET BY MOUTH EVERY 8 HOURS NEEDED FOR PAIN active Not Available Not Available No t Available gentamicin 0.3 % eye drops active Not Available Not Available Not Available tamsulosin 0.4 mg capsule TAKE ONE CAPSULE BY MOUTH EVERY DAY active Not Available Not Available No t Available dicyclomin e 20 mg tablet Take 1 tablet 4 times a day by oral route for 90 days. 10/25 completed Not Available Not Available Not Available [employer] Mobile Ultra Test strips use to test 2-3 times a day or as needed active Not Available Not Available No t Available baclofen 10 mg tablet TAKE 1 TABLET BY MOUTH AT BEDTIME THEN INCREASE TO TWICE DAILY TOLERATE D AND NEEDED. 07/07 completed Not Available Not Available Not Available benzonatat e 100 mg capsule TAKE ONE CAPSULE BY MOUTH THREE TIMES DAILY NEEDED f FOR COUGH 07/17 completed Not Available Not Available Not Available doxycyclin e monohydrat e 100 mg capsule TAKE ONE CAPSULE BY MOUTH TWICE DAILY 07/17 completed Not Available Not Available Not Available ropinirole 2 mg tablet TAKE ONE TABLET BY MOUTH EVERY DAY AT bedtime active Not Available Not Available No t Available cephalexin 500 mg capsule 09/03 completed Not Available Not Available Not Available pantoprazo le 40 mg tablet,del ayed release TAKE ONE TABLET BY MOUTH DAILY 02/22 completed Not Available Not Available Not Available nortriptyl ine 10 mg capsule TAKE 3 CAPSULES BY MOUTH AT BEDTIME. 07/20 completed Not Available Not Available Not Available esomeprazo le magnesium 40 mg capsule,de layed release take 1 capsule by mouth twice a day active Not Available Not Available No t Available divalproex ER 500 mg tablet,ext ended release 24 hr Take one (1) tablet by mouth twice a day active Not Available Not Available No t Available mupirocin 2 % topical ointment APPLY A SMALL AMOUNT TO THE NARES 3 TIMES PER DAY FOR 5 DAYS PRIOR TO PROCEDUR E 07/07 completed Not Available Not Available Not Available diazepam 10 mg tablet TAKE 1 TABLET BY MOUTH 1 time FOR 1 DOSE - take 1 hour BEFORE procedur e. DO not drive, must have armored car guard and driver present FOR procedur e active Not Available Not Available No t Available polyethyle ne glycol 3350 17 gram/dose oral powder MIX 17 gram with IN FLUID AND DRINK by MOUTH ONCE daily active Not Available Not Available No t Available albuterol sulfate HFA 90 mcg/actuat ion aerosol inhaler INHALE TWO PUFFS BY MOUTH EVERY 4 HOURS NEEDED 10/25 completed Not Available Not Available Not Available Vitamin D2 1,250 mcg (50,000 unit) capsule Take 1 capsule every week by oral route for 90 days. 10/25 completed Not Available Not Available Not Available propranolo l 20 mg tablet TAKE 1/2 TABLET BY MOUTH TWICE DAILY 10/25 completed Not Available Not Available Not Available ketoconazo le 2 % topical cream APPLY TO THE AFFECTED AREA(S) ONCE DAILY 07/07 completed Not Available Not Available Not Available bromphenir amine-pseu doephedrin e-DM 2 mg-30 mg-10 mg/5 mL oral syrup TAKE 10ml BY MOUTH EVERY 4 HOURS NEEDED 07/26 completed Not Available Not Available Not Available ondansetro n 4 mg disintegra ting tablet TAKE ONE TABLET BY MOUTH EVERY 8 HOURS NEEDED f FOR NAUSEA & FOR VOMITING active Not Available Not Available No t Available cefdinir 300 mg capsule Take 1 capsule every 12 hours by oral route for 7 days. 04/11 completed Not Available Not Available Not Available fluticason e propionate 50 mcg/actuat ion nasal spray,susp ension [place] 1 spray every day by intranas al route. 2024 active Not Available Not Available Not Avai lable metformin ER 500 mg tablet,ext ended release 24 hr TAKE 1 TABLET BY MOUTH TWICE DAILY. 07/20 completed Not Available Not Available Not Available sertraline 50 mg tablet TAKE 1 TABLET BY MOUTH AT BEDTIME FOR depressi on AND anxiety active Not Available Not Available No t Available colestipol 1 gram tablet TAKE 1 TABLET BY MOUTH TWICE DAILY active Not Available Not Available No t Available finasterid e 5 mg tablet TAKE 1 TABLET BY MOUTH ONCE DAILY active Not Available Not Available No t Available glycopyrro late 2 mg tablet TAKE 1 TABLET BY MOUTH TWICE DAILY 07/07 completed Not Available Not Available Not Available amoxicilli n 875 mg-potassi um clavulanat e 125 mg tablet TAKE 1 TABLET BY MOUTH TWICE DAILY 05/25 completed Not Available Not Available Not Available amoxicilli n 500 mg-potassi um clavulanat e 125 mg tablet TAKE ONE TABLET BY MOUTH EVERY TWELVE HOURS FOR 10 DAYS 02/05 completed Not Available Not Available Not Available oxycodone 5 mg tablet 09/03 completed Not Available Not Available Not Available hydroxyzin e pamoate 25 mg capsule TAKE ONE CAPSULE BY MOUTH THREE TIMES DAILY NEEDED 10/25 completed Not Available Not Available Not Available rosuvastat in 40 mg tablet TAKE 1 TABLET BY MOUTH ONCE DAILY. 07/07 completed cardio Not Available Not Available Not Available ketorolac 0.4 % eye drops active Not Available Not Available Not Available alfuzosin ER 10 mg tablet,ext ended release 24 hr TAKE ONE TABLET BY MOUTH EVERY DAY 10/25 completed Not Available Not Available Not Available metoprolol tartrate 25 mg tablet TAKE ONE (1) TABLET BY MOUTH TWICE A DAY 07/20 completed Not Available Not Available Not Available pregabalin 100 mg capsule Take 1 capsule 3 times a day by oral route. 06/02 completed Not Available Not Available Not Available oxycodone 10 mg tablet TAKE 1 TABLET BY MOUTH EVERY 8 HOURS 07/20 completed Not Available Not Available Not Available Apriso 0.375 gram capsule,ex tended release TAKE FOUR CAPSULES BY MOUTH EVERY DAY active Not Available Not Available No t Available Mucus Relief ER 600 mg tablet, extended release TAKE ONE CAPSULE BY MOUTH TWICE DAILY NEEDED 10/25 completed Not Available Not Available Not Available Vitamin D3 50 mcg (2,000 unit) capsule Take 1 capsule every day by oral route. 07/07 completed Not Available Not Available Not Available Creon 36,000 unit-114,0 00 unit-180,0 00 unit capsule,de layed release take ONE capsule by MOUTH wih meals AND OR snacks with a max of SIX PER DAY active Not Available Not Available No t Available Jardiance 10 mg tablet TAKE 1 TABLET BY MOUTH DAILY. 10/12 completed Not Available Not Available Not Available Jardiance 25 mg tablet TAKE ONE TABLET BY MOUTH EVERY DAY active Not Available Not Available No t Available mesalamine 400 mg capsule (with delayed release tablets inside) TAKE 4 CAPSULE BY MOUTH ONCE DAILY active Not Available Not Available No t Available Ozempic 0.25 mg or 0.5 mg (2 mg/1.5 mL) subcutaneo us pen injector Inject 0.25 mg every week by subcutan eous route for 30 days. 07/17 completed Not Available Not Available Not Available OneTouch Ultra2 Meter active Not Available Not Available Not Available OneTouch Delica Plus Lancet 33 gauge active Not Available Not Available Not Available Sutab 1.479-0.18 8-0.225 gram tablet for colonsco py; at 6pm the night before procedur e, swallow 1 tablet every 1-2 minutes. you should finish 12 tablets and entire 16 oz of water within 20 minutes. IMPORTAN T If you experien ce pre-rela pravin symptoms (nausea, bloating or cramping ) pause and slow the rate of drinking addition al water until symptoms diminish . approxim ately one hour after the last tablet, drink 16 oz of water over 30 mins. then repeat 4 hours before procedur e time. active Not Available Not Available No t Available Paxlovid 300 mg (150 mg x 2)-100 mg tablets in a dose pack take THREE tablets followin g pack twice vaughan FOR FIVE DAYS. take with food. 05/31 completed Not Available Not Available Not Available Ozempic 0.25 mg or 0.5 mg (2 mg/3 mL) subcutaneo us pen injector INJECT 0.25 MG WEEKLY SUBCUTAN EOUSLY FOR 30 DAYS 04/19 completed Not Available Not Available Not Available Vitals Date Recorded Body height Body mass index (BMI) Body weight Heart rate Oxygen saturation Systolic And Diastolic Provider Name and Address Organization Details Last Updated DateTime 5 167.64 cm 31 kg/m2 32413.7 4 g 55 /min 97 % 134/82 mm[Hg] [employer] 5 17:10:50 Date Recorded Body height Body mass index (BMI) Body weight Body temperature Heart rate Oxygen saturation Systolic And Diastolic Provider Name and Address Organization Details Last Updated DateTime 5 167.64 cm 31 kg/m2 12009.1 4 g 97.6 [degF] 57 /min 97 % 133/80 mm[Hg] [employer] 5 10:02:13 Date Recorded Body height Body mass index (BMI) Body weight Heart rate Oxygen saturation Systolic And Diastolic Provider Name and Address Organization Details Last Updated DateTime 5 167.64 cm 31 kg/m2 51671.7 4 g 68 /min 94 % 134/84 mm[Hg] [employer] 5 16:38:45 Date Recorded Body height Body mass index (BMI) Body weight Body temperature Heart rate Oxygen saturation Systolic And Diastolic Provider Name and Address Organization Details Last Updated DateTime 5 167.64 cm 31.3 kg/m2 40355.9 2 g 97.5 [degF] 69 /min 97 % 133/77 mm[Hg] Deyvi Jocelyn Down. 5 10:16:16 Date Recorded Body height Body mass index (BMI) Body weight Body temperature Oxygen saturation Heart rate Systolic And Diastolic Provider Name and Address Organization Details Last Updated DateTime 5 167.64 cm 32.3 kg/m2 90414.5 7 g 97.5 [degF] 95 % 62 /min 130/77 mm[Hg] Tia Sal Down. 5 10:32:09 Social History Question Answer Notes LastModified by Organizat ion Details LastModified Time Tobacco Smoking Status Former Smoker MORENO hsu Down. 07/20/2022 10:12:00 Do You Have An Advance Directive? No [email or web address] Information not available 07/20/2022 Is Your Home Air Conditioned? Yes [email or web address] Information not available 07/20/2022 Are You Blind Or Do You Have Difficulty Seeing? Yes [email or web address] Information not available 07/20/2022 What Is Your Level Of Caffeine Consumption? Occasional [email or web address] Information not available 12/17/2022 Are You A Caregiver? No [email or web address] Information not available 07/20/2022 In The 14 Days Before Symptom Onset, Have You Had Close Contact With A Laboratory-confir med COVID-19 While That Case Was Ill? No [email or web address] Information not available 07/20/2022 In The 14 Days Before Symptom Onset, Have You Had Close Contact With A Person Who Is Under Investigation For COVID-19 While That Person Was Ill? No [email or web address] Information not available 07/20/2022 Have You Been To An Area Known To Be High Risk For COVID-19? No [email or web address] Information not available 07/20/2022 Are You Deaf Or Do You Have Serious Difficulty Hearing? No [email or web address] Information not available 07/20/2022 What Type Of Diet Are You Following? REGULAR [email or web address] Information not available 07/20/2022 How Many Days Of Moderate To Strenuous Exercise, Like A Brisk Walk, Did You Do In The Last 7 Days? 3 [email or web address] Information not available 07/20/2022 Have There Been Any Changes To Your Family Or Social Situation? No [email or web address] Information no t available 07/20/2022 When Did You Quit Smoking? 16+yearssincel astcigarette Information not available 07/20/2022 Which Of Your Hands Is Dominant? Right [email or web address] Information not available 07/20/2022 What Is Your Home Situation? Other [email or web address] Information not available 07/20/2022 Do You Have A Medical Power Of Res Counselor? No [email or web address] Information not available 07/20/2022 What Was The Date Of Your Most Recent Tobacco Screening? 07/05/2025 [email or web address] Information not available 07/05/2025 What Is Your Current Pack Years? 10packyears [email or web address] Information not available 07/20/2022 What Is Your Relationship Status? [email or web address] Information not available 07/20/2022 Do You Use Your Seat Belt Or Car Seat Routinely? Yes [email or web address] Information not available 07/20/2022 Do You Have Any Siblings? 8 Information not available 07/20/2022 Do You Have Smoke And Carbon Monoxide Detectors In Your Home? Yes [email or web address] Information not available 07/20/2022 Are You Passively Exposed To Smoke? No Information no t available 07/20/2022 Are There Any Smokers In Your House? No [email or web address] Information not available 07/20/2022 Have You Recently Traveled Abroad? No [email or web address] Information not available 07/20/2022 Do You Have Difficulty Walking Or Climbing Stairs? Yes [email or web address] Information not available 07/20/2022 Are You Currently In School? No [email or web address] Information not available 07/20/2022 Do You Have Any Dietary Restrictions? No [email or web address] Information not available 07/20/2022 Sex: Male Functional Status Question Answer Note LastModified by Organizat ion Details LastModified Time Do you use any illicit or recreational drugs? No [email or web address] Information not available 07/20/2022 What is your level of alcohol consumption? None aqzepvcq19 Information not available 07/20/2022 Are you currently employed? No [email or web address] Information not available 07/20/2022 Do you have transportation difficulties? No [email or web address] Information not available 07/20/2022 Are you able to walk independently without assistance or assistive devices? YESWOREST [email or web address] Information not available 07/20/2022 Do you have difficulty doing errands alone? No [email or web address] Information not available 07/20/2022 Are you able to care for yourself independently? No lheknhmk93 Information not available 07/20/2022 Do you have difficulty dressing, bathing, grooming, or toileting? No [email or web address] Information not available 07/20/2022 What is your exercise level? Occasional [email or web address] Information not available 07/20/2022 Mental Status Question Answer Note LastModified by Organizat ion Details LastModified Time Do you feel stressed (tense, restless, nervous, or anxious, or unable to sleep at night)? [id number] epycznrv31 Information not available 07/20/2022 Do you have difficulty concentrating, remembering or making decisions? Yes [email or web address] Information no t available 07/20/2022 Family History Relationship Description Onset Age of this Age Resolved Age Notes LastModified by Organization Details LastModified Time Father Heart disease [email or web address] Not available 07/20 09:59:43 Father Hypertensive disorder [email or web address] Not available 07/20 09:59:43 Mother Malignant neoplasm of breast [email or web address] Not available 07/20 09:59:43 Medical History Condition Response Hospitalizations N ADD/ADHD N Acid Reflux (GERD) Y Emergency room visit since last appointm ent. N Immunizations Vaccine Type Date Status Note Provider Name and Address Organization Details Recorded Time zoster recombinant 04/17/20 24 cancelled patient objection Consuelo Segundo, [employer] [address] [facility], [place], [address], [facility] [employer]. 04/17/2024 18:23:31 Td (adult), 2 Lf tetanus toxoid, preservative free, adsorbed 12/06/18 96 completed MORENO hsu ND [employer]. 07/20/2022 10:07:13 Td(adult) unspecified formulation 04/22/20 15 completed [facility] 07/20/2022 10:07:13 Tdap 03/13/20 24 completed Not Available [facility] 07/05/2025 10:24:44 Past Encounters Encounter ID Performer Location Encounter Start Date Encounter Closed Date Diagnosis/Indication Diagnosis SNOMED-CT Code Diagnosis ICD10 Code Diagnosis IMO Codes Diagnosis [place] [id number] [place] [address] 07/20/2022 09:13:24 07/20/2022 11:04:44 Acute otitis media 3280783 H66.90 Irritable bowel syndrome 02711411 K58.9 Body mass index 30+ - obesity 992615226 Z68.33 Type 2 tami betes mellitus without complication 613922198 E11.9 Essential hypertension 53972447 I10 Gastroesop hageal reflux disease without esophagitis 856528675 K21.9 Neuropathy 437420227 G62 .9 Benign pro static hyperplasia 103928723 N40.0 Vitamin D deficiency 347 23999 E55.9 [id number] [place] [address] 09/17/2022 07:53:22 09/17/2022 08:24:13 Type 2 diabetes mellitus 44880091 E11.9 Benign pro static hyperplasia without outflow obstruction 456931393 N40.0 Chronic fa tigue syndrome 13444497 R53.82 Epididymitis 65146080 N4 5.1 Neuropathy 841690254 G62 .9 Essential hypertension 86989949 I10 Bipolar disorder 6978671 4 F31.9 Gastroesop hageal reflux disease without esophagitis 414508330 K21.9 Essential tremor 3166246 09 G25.0 Benign pro static hyperplasia 043040844 N40.0 Vitamin D deficiency 347 16333 E55.9 Body mass index 30+ - obesity 494342706 Z68.33 [id number] [place] [address] 12/17/2022 16:43:45 12/17/2022 17:19:23 Diabetes mellitus 20471005 E13.9 Pain in right foot 69941 75336 03971 M79.671 Skin lesion 53131292 L98 .9 Tinea corporis 75177211 B35.4 Irritable bowel syndrome 86283442 K58.9 Body mass index 30+ - obesity 738877184 Z68.33 [id number] [place] [address] 01/11/2023 17:09:48 01/11/2023 17:40:47 Irritable bowel syndrome with diarrhea 017738292 K58.0 Diarrhea 14504336 R19.7 [id number] Consuelo Segundo [place] [address] 0 03/31/2023 16:21:44 03/31/2023 17:36:30 Diabetes mellitus 59480387 E11.9 Essential hypertension 01981160 I10 Neuropathy 345175266 G62 .9 Body mass index 30+ - obesity 414830102 Z68.33 [id number] Consuelo Segundo [place] [address] 0 06/02/2023 16:34:37 06/02/2023 17:33:22 Gastroesophageal reflux disease without esophagitis 482762227 K21.9 Neuropathy 693522838 G62 .9 Body mass index 30+ - obesity 942647873 Z68.33 [id number] NIKO NAVA [place] [address] 0 07/07/2023 16:26:42 07/07/2023 16:59:24 Type 2 diabetes mellitus 94945691 E11.9 Essential hypertension 18754100 I10 [id number] NIKO NAVA [place] [address] 0 07/13/2023 08:25:16 07/13/2023 09:39:48 Cough 50757438 R05.9 COVID-19 153837655 U07.1 [id number] Consuelo Segundo [place] [address] 0 07/26/2023 16:13:02 07/26/2023 17:13:20 Itching of skin 792014399 L29.9 Body mass index 30+ - obesity 726502027 Z68.33 [id number] Consuelo Segundo [place] [address] 0 09/05/2023 15:57:52 09/05/2023 17:13:56 Cough 39063550 R05.9 Nausea 193252323 R11.0 Viral gastroenteritis 11 2038603 A08.4 Body mass index 30+ - obesity 396136547 Z68.33 [id number] NIKO [place] [address] 10/13/2023 15:57:21 10/13/2023 17:19:00 Essential hypertension 17953552 I10 Mixed hyperlipidemia 267 484013 E78.2 Neuropathy 525814366 G62 .9 Type 2 tami betes mellitus without complication 443000805 E11.9 [id number] NIKO [place] [address] 0 12/14/2023 16:24:18 12/14/2023 16:49:34 Gastroesophageal reflux disease without esophagitis 000657072 K21.9 Neuropathy due to type 2 diabetes mellitus 9944806231 52981 E11.40 Hemorrhoids 34595779 K64 .9 Increased frequency of urination 324658791 R35.0 [id number] NIKO [place] [address] 01/12/2024 16:13:52 01/12/2024 17:40:34 Type 2 diabetes mellitus without complication 658243187 E11.9 Skin lesion 41390234 L98 .9 Essential hypertension 96738195 I10 Mixed hyperlipidemia 267 402608 E78.2 [id number] [place] [address] 01/16/2024 16:25:30 01/16/2024 17:13:30 Acute otitis media 0826153 H66.90 Resting tremor 52022216 G25.2 Poor short -term memory 549627090 R41.3 Body mass index 30+ - obesity 842163942 Z68.33 [id number] Consuelo Segundo [place] [address] 0 02/06/2024 14:38:00 02/06/2024 15:08:51 Low back pain 949227122 M54.50 Body mass index 30+ - obesity 808868805 Z68.33 [id number] [place] [address] 03/08/2024 16:14:36 03/08/2024 17:07:47 Uncontrolled type 2 diabetes mellitus 685261549 E11.65 Restless l egs syndrome 24492243 G25.81 Hypomagnesemia 498902952 E83.42 Body mass index 30+ - obesity 017167582 Z68.33 [id number] Anca Donaldson, KAYLEIGH [place] [address] 03/29/2024 09:53:19 03/29/2024 17:56:06 Cough 15461376 R05.9 Closed injury of head 45 77520166 06 S09.90XA Slurred speech 173533238 R47.81 Headache 34997959 R51.9 Nausea and vomiting 1693 2000 R11.2 Tick bite 24175959 W57.X XXA [id number] Consuelo Segundo [place] [address] 0 04/17/2024 16:07:59 04/17/2024 17:06:53 Type 2 diabetes mellitus 78611293 E11.9 patient declined dm foot exam Vaccine de clined by patient 3786156637 02 Z28.20 Shingles VIS given for pt education Body mass index 30+ - obesity 810134266 Z68.33 Mixed hyperlipidemia 267 503940 E78.2 Benign pro static hyperplasia 149001122 N40.0 Neuropathy 541405593 G62 .9 Essential hypertension 36879807 I10 Type 2 tami betes mellitus without complication 933519808 E11.9 [id number] [place] [address] 05/11/2024 15:53:49 05/11/2024 17:00:09 Cough 17936185 R05.9 COVID-19 642341403 U07.1 Body mass index 30+ - obesity 668751326 Z68.33 [id number] [place] [address] 05/31/2024 16:24:32 05/31/2024 17:35:42 Fever 616882750 R50.9 Lower resp iratory tract infection 81443581 J22 Candidiasis of mouth 797 49614 B37.0 Cough 12599406 R05.9 Body mass index 30+ - obesity 369356911 Z68.33 [id number] [place] [address] 07/17/2024 16:28:58 07/17/2024 17:12:16 Type 2 diabetes mellitus without complication 866717030 E11.9 Benign pro static hyperplasia 576357165 N40.0 Neuropathy 792408517 G62 .9 Type 2 tami betes mellitus 71250670 E11.9 patient declined dm foot exam Body mass index 30+ - obesity 664355866 Z68.33 [id number] [place] [address] 09/03/2024 16:47:37 09/03/2024 17:23:25 Abdominal pain 81256370 R10.9 History of hernia repair 2237554071 9109 Z98.890 Body mass index 30+ - obesity 474832950 Z68.[id number] Consuelo Segundo[address] [address] 10/25/2024 16:35:27 10/25/2024 17:46:02 Type 2 diabetes mellitus without complication 582879854 E11.9 Hyperlipidemia 91949313 E78.5 Chest pain 33770368 R07. 9 Abdominal pain 52091351 R10.9 Essential hypertension 22934192 I10 Mixed hyperlipidemia 267 959847 E78.2 Benign pro static hyperplasia 716610002 N40.0 Type 2 tami betes mellitus 26179100 E11.9 patient declined dm foot exam Restless l egs syndrome 15390371 G25.81 Fatigue 50862966 R53.83 HIV screening 276451836 Z11.4 Vitamin D deficiency 347 67779 E55.9 Vitamin B deficiency 479 67278 E53.9 Iron defic iency anemia 75874492 D50.9 Nocturia 785323969 R35.1 Body mass index 30+ - obesity 009719745 Z68.33 [id number] [place] [address] 01/18/2025 15:45:24 01/18/2025 16:31:40 Type 2 diabetes mellitus 34500782 E11.9 75793527 Essential hypertension 78770458 I10 Chest pain 69608837 R07. 9 Mixed hyperlipidemia 267 944963 E78.2 Benign pro static hyperplasia 044474524 N40.0 Low back pain 884300547 M54.50 572336 Body mass index 30+ - obesity 717136931 Z68.31 713709 [id number] Consuelo Segundo [place] [address] 02/22/2025 16:18:36 02/22/2025 17:48:41 Gastroesophageal reflux disease without esophagitis 775978597 K21.9 Neuropathy 740531933 G62 .9 Ulcerative colitis 26937 004 K51.919 72960332 Body mass index 30+ - obesity 203491234 Z68.31 078950 [id number] Consuelo Segundo[address] [address] 03/28/2025 09:35:17 03/28/2025 10:41:06 Fatigue 36313853 R53.83 4161671 Mixed hyperlipidemia 267 473121 E78.2 50104 Vitamin D deficiency 347 76821 E55.9 61098 Cobalamin deficiency 190 183105 E53.8 83927 Iron defic iency anemia 30924694 D50.9 88736917 Chest pain 21577396 R07. 9 30804632 Acute left otitis media 324883056 H66.92 3419221 Prolapsed lumbar intervertebral disc 470149862 M51.26 76694366 Body mass index 30+ - obesity 807748707 Z68.31 964098 [id number] Consuelo Segundo APRN [place] [address] 04/19/2025 16:27:30 04/23/2025 10:50:49 Diabetes mellitus 40500519 E11.9 98153 Chest pain 61167229 R07. 9 Diverticular disease 397 693362 K57.90 394402 Body mass index 30+ - obesity 123378521 Z68.31 688351 [id number] Gerda Reed, MANUFACTURING OPERATIONS MANAGER [address] 05/25/2025 10:06:56 05/25/2025 10:52:39 Cough 67108007 R05.9 3157438624 Upper resp iratory infection 79470726 J06.9 14306286 [id number] MICHAEL MCCOLLUM, MANUFACTURING OPERATIONS MANAGER [place] [address] 07/05/2025 10:17:01 07/05/2025 11:17:54 Sore throat 826715329 J02.9 25623 Viral scre ening status 699295855 Z11.59 488314 Nasal congestion 0420979 0 R09.81 84603 Upper resp iratory infection 36267565 J06.9 12573124 Health Concerns Section Related Observation LastModified by Organization Detai ls LastModified Time None Recorded Concern Status LastModified by Organization Details LastModified Time None Recorded Advance Directives Directive N: Payers Insurance Date Sequence Insurance Name Policy Number Policy Garcia Covered Member ID Garcia Member ID Guarantor Name 07/04/2025 2 [facility]ICAID-[facility] CHO[facility] - FFS/TRADITIONA L Kush Mata [id number] Kush Mata 09/03/2024 1 [place] [facility] MEDIBLUE PLUS (MEDICARE REPLACEMENT HMO) [id number] Kush Mata [id number] Kush Mata 07/05/2025 MEDICARE [place] [employer] - [facility] Kush Mata [id number] Kush Mata 07/04/2025 1 [facility] (MEDICARE REPLACEMENT/AD VANTAGE - PPO) [id number] Kush Mata [id number] Kush Mata Notes Date Note Type Note Provider Name and Address Organization Details Recorded Time 02/22/2025 text/html pt here today for medication refills. pt states hes doing well on current medication regime. pt states that he has seen GI and had colonoscopy and states he was told he doesnt have heart burn but states that he has it daily and cannot live without the medication. he states that he has drank 3 gallons of pepto and it still doesnt help. states he was taken off of the ozempic because he still had food in his intestines. states that he got a letter from [facility] about a nodule in lungs he needs to f/u on from jul. pt has had a chest scan in october that was clear but i will order one. pt states that he has really been in a bad mood since having all of these procedures and health issues. he is seeing a new therapist for it. Consuelo Segundo APRN [address] [place] [address], [place], [address], [facility] [employer] 02/22/2025 18:07:53 03/28/2025 text/html pt here today with c/o left ear pain that started a few days ago. on exam, left ear red with fluid. i will order abx. educated pt on new med. pt voiced understanding. pt wanted to know if his results were in from ct he had yesterday. explained to pt his ct results (neg for lung nodules). pt does have a protruding disc. pt would like to have an MRI. states that he has been seeing a chiropractor and states he is not getting any better and he suggested that he have one. also states that he has been having a little pain in his left chest and LUE on/off for the past several days. states not enough to go to ER but he wanted ot bring it up. states that he had the pain earlier but not now. assessment WNL. i will order labs. i highly recommend pt to go to ER pt declined. pt states that he will go if it gets worse. Consueol Segundo APRN [address] [place], [address], [place]. 03/28/2025 18:38:27 04/19/2025 text/html DiabetesReported by Patient pt here today for medication refills. pt states hes doing well on current medication regime. A1C 6.5, 5.4 at last visit. ozempic was d/c by gastric doc. pt to continue diabetic diet, current medication regime and exercise. pt states that he went to ER last night and was dx with diverticulitis. states that he was prescribed augmentin. states that his lower abd is still having some pain but he feels a little better. no note in chart yet. Consuelo Segundo APRN [address] [place], [address], [place]. 04/19/2025 17:48:50 05/25/2025 text/html ROS as noted in the HPI Patient presented to clinic today C/O cough, congestion, nausea, body aches, and subjective fever x 3 days. Patient denies feeling like he has a fever today. Patient denies any signs or symptoms risk distress. Patient states that most of the coughing occurs at night once he lies down. Patient has no additional complaints or concerns for today's visit Gerda Reed NP [address] [place], [address], [place]. 05/25/2025 10:49:28 07/05/2025 text/html ROS as noted in the HPI Presents today with complaints for 2 days of fever, cough that produces thick yellow green mucus, nasal drainage also producing thick mucus, head congestion, sore throat, and body aches. No known sick contacts. Has been using tylenol and ibuprofen for pain and fever relief. MICHAEL MCCOLLUM NP [address] [place], [address], [facility] [employer] 07/05/2025 11:17:39
--- OUTSIDE RECORDS SUMMARY | 2025-07-07 11:05 | XMS_ITS | Encounter Summary ---
Author Organization [facility] Address [address] [place] [address] Care Team Providers Care Piano Mechanic Apprentice Name Role Phone Asael Bolden MD Unavailable [phone] Anup Ronquillo MD Unavailable [phone] Consuelo Segundo APRN Primary Care Provider + [phone] Encounter Details Date Type Department Care Team (Late st Contact Info) Description 05/27/2025 Orders Only [facility] Interventional Pain Medicine [address] [facility] [place] [address] Richard Taylor MD [address] [facility] [address] [place] [address] Social History Tobacco Use Types Packs/Day Years [...] as of this encounter Miscellaneous Notes * Progress Notes - Richard Taylor MD - 05/27/2025 8:09 AM EDT Needed valium for procedure documented in this encounter Plan of Treatment Upcoming Encounters Date Type Department Care Team (Late st Contact Info) Description 07/24/2025 1:00 PM EST Office Visit [facility] Interventional Pain Medicine [address] [facility] [place] [address] Richard Taylor MD [address] [facility] [address] [place] [address] documented as of this encounter Visit Diagnoses Not on filedocumented in this encounter Additional Health Concerns Assessment Noted Time A fall risk assessment has been complete d for the patient 05/27/2025 1:06 PM EDT A Body Mass Index follow-up plan has been documented for the patient 05/28/2025 7:10 AM EDT documented as of this encounter Care Teams Piano Mechanic Apprentice Relationship Specialty Start Date End Date Consuelo Segundo APRN [address] [place] [address] PCP - General 07/11/23 Asael Bolden MD [address] [facility] [place] [address] Surgeon Neurosurgery 03/16/21 Anup Ronquillo MD [address] [place] [address] Consulting Physician Neurology 10/19/21 documented as of this encounter
--- OUTSIDE RECORDS SUMMARY | 2025-07-07 11:05 | XMS_ITS | Data Portability ---
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 [email or web address] Not available 06/28/2022 08:38:33 Plan of Treatment Reminders Order Date Submit Date Provider Last Modified By Organization Details Last Modified Time Details Appointments None recorded. Lab drug screen, urine 2021 022 [facility], [address] [place], [address], 2 11:34:33 albumin/cre atinine, mass ratio, urine 2021 022 TUSTIN [facility], [address], [place] [address], [place], [address], 2 10:12:13 glucose, fingerstick , blood 2021 022 [facility], [address] [place], [address], 11:53:07 HbA1c (hemoglobin A1c), blood 2021 022 [facility], [address] [place], [address], 11:53:07 urinalysis, dipstick 2021 [place] [address] [facility], [address], [place], [address], 11:53:07 culture, urine 2021 DINORAH [facility], [address], [address], [place], [address], 04:08:18 CMP, serum or plasma 2021 DINORAH [facility], [address], [place] [address], [place], [address], 11:11:19 CBC w/ auto diff 2021 TUSTIN [facility], [address], [place] [address], [place], [address], 11:11:18 drug screen, urine 2021 [place] [address] [facility], [address], [place], [address], 11:53:06 Referral cut out stitcher referral 2021 DINORAH [facility], [address] [place], [address], 16:18:18 Procedures None recorded. Surgeries None recorded. Imaging None recorded. Medication Orders amlodipine 5 mg tablet 2021 [facility], [address] [place], [address], 3 11:38:39 tamsulosin 0.4 mg capsule 2021 T[facility], [address] [place], [address], 2 12:40:46 amoxicillin 875 mg tablet 2021 022 DINORAH [facility], [address] [place], [address], 2 12:41:01 Jardiance 10 mg tablet 2021 022 DINORAH [facility], [address] [place], [address], 2 13:13:28 Vitamin D2 1,250 mcg (50,000 unit) capsule 2021 DINORAH [facility], [address] [place], [address], 3 10:38:39 gabapentin 600 mg tablet 2021 DINORAH [facility], [address] [place], [address], 2 12:42:21 gabapentin 600 mg tablet 2021 DINORAH [facility], [address] [place], [address], 2 18:11:38 triamcinolo ne acetonide 0.1 % topical cream 2021 DINORAH [facility], [address] [place], [address], 2 10:29:25 Jardiance 10 mg tablet 2021 DINORAH [facility], [address] [place], [address], 2 09:07:58 tadalafil 5 mg tablet 2021 022 [facility], [address] [place], [address], 12:19:46 amlodipine 5 mg tablet 2021 022 [facility], [address] [place], [address], 11:15:35 Patient TargetsNo targets recorded. Patient Instructions Encounter Date Encounter Id Patient Instructions Last Modified By Organization Details Last Modified Time 01/11/2022 [id number] Follow up as needed. The patient will report any new or worsening symptoms. The patient will return to clinic if new or worsening symptoms are noted, or if if the symptoms do not resolve. If marked worsening of the symptoms is noted the patient will go to the emergency department of their choice. Not available 01/11/2022 12:54:12 02/18/2022 [id number] Follow up as needed. The patient will report any new or worsening symptoms. The patient will return to clinic if new or worsening symptoms are noted, or if if the symptoms do not resolve. If marked worsening of the symptoms is noted the patient will go to the emergency department of their choice. Not available 02/18/2022 10:35:22 03/02/2022 [id number] Follow up as needed. The patient will report any new or worsening symptoms. The patient will return to clinic if new or worsening symptoms are noted, or if if the symptoms do not resolve. If marked worsening of the symptoms is noted the patient will go to the emergency department of their choice. Not available 03/02/2022 11:16:47 03/18/2022 [id number] Follow up as needed. The patient will report any new or worsening symptoms. The patient will return to clinic if new or worsening symptoms are noted, or if if the symptoms do not resolve. If marked worsening of the symptoms is noted the patient will go to the emergency department of their choice. Not available 03/18/2022 12:44:39 06/28/2022 [id number] advance directives: care instructions Not available 06/28/2022 11:15:44 learning about depression Not available 06/28/2022 11:15:45 preventing falls : care instructions Not available 06/28/2022 11:15:44 medicare preventive services guide Not available 06/28/2022 11:15:44 learning about healthy weight Not available 06/28/2022 11:15:44 Learning About Being Physically Active Not available 06/28/2022 11:15:45 Follow up as needed. The patient will report any new or worsening symptoms. The patient will return to clinic if new or worsening symptoms are noted, or if if the symptoms do not resolve. If marked worsening of the symptoms is noted the patient will go to the emergency department of their choice. 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 Referring Physician: Kenya Antony, Family Medicine, Encounter Date: 03/02/2022 Results Created Date Observation Date Name Description Value Unit Range Abnormal Flag Note LastModifiedBy Organization Detail LastModifiedTime 12/17/19 22 12/24/2021 COMPL IANCE DRUG LUCINA SIS, UR summary report (summary) FINAL ===== ===== ===== ===== ===== ===== ===== ===== ===== ===== ===== ===== ===== === TOXAS SURE COMP DRUG LUCINA SIS,U R ===== ===== ===== ===== ===== ===== ===== ===== ===== ===== ===== ===== ===== === Test Resul t Flag Units Drug Prese nt Gabap entin PRESE NT Aceta minop hen PRESE NT Salic ylate PRESE NT Lidoc crissy PRESE NT Propr anolo l PRESE NT ===== ===== ===== ===== ===== ===== ===== ===== ===== ===== ===== ===== ===== === Test Resul t Flag Units Ref Range Creat inine 136 mg/dL >=20 ===== ===== ===== ===== ===== ===== ===== ===== ===== ===== ===== ===== ===== === Decla red Medic ation s: Medic ation list was not provi ded. ===== ===== ===== ===== ===== ===== ===== ===== ===== ===== ===== ===== ===== === For clini sandie consu ltati on, pleas e call . ===== ===== ===== ===== ===== ===== ===== ===== ===== ===== ===== ===== ===== === Not Available [facility] [address], [place], [address], 12/24/2021 18:09:10 12/17/19 22 12/24/2021 COMPL IANCE DRUG LUCINA SIS, UR pdf . Not Available [facility] [address], [place], [address], 12/24/2021 18:09:10 03/18/20 22 03/19/2022 CBC WITH DIFFE RENTI AL/PL ATELE T WBC 4.6 x10e3 /uL 3.4-10 .8 Not Available [facility] ([facility]) [address], [place], [address], 03/19/2022 11:11:18 03/18/20 22 03/19/2022 CBC WITH DIFFE RENTI AL/PL ATELE T RBC 4.87 x10e6 /uL 4.14-5 .80 Not Available [facility] ([facility]) [address] [facility], [place], [address], 03/19/2022 11:11:18 03/18/20 22 03/19/2022 CBC WITH DIFFE RENTI AL/PL ATELE T hemoglobin 15.3 g/dL 13.0-1 7.7 Not Available [facility] ([facility]) [address] [facility], [place], [address], 03/19/2022 11:11:18 03/18/20 22 03/19/2022 CBC WITH DIFFE RENTI AL/PL ATELE T hematocrit 45.5 % 37.5-5 1.0 Not Available [facility] ([facility]) [address] [facility], [place], [address], 03/19/2022 11:11:18 03/18/20 22 03/19/2022 CBC WITH DIFFE RENTI AL/PL ATELE T MCV 93 fL 79-97 Not Available [facility] ([facility]) [address] [place], [address], 03/19/2022 11:11:18 03/18/20 22 03/19/2022 CBC WITH DIFFE RENTI AL/PL ATELE T MCH 31.4 pg 26.6-3 3.0 Not Available [facility] ([facility]) [address] [place], [address], 03/19/2022 11:11:18 03/18/20 22 03/19/2022 CBC WITH DIFFE RENTI AL/PL ATELE T MCHC 33.6 g/dL 31.5-3 5.7 Not Available [facility] ([facility]) [address] [place], [address], 03/19/2022 11:11:18 03/18/20 22 03/19/2022 CBC WITH DIFFE RENTI AL/PL ATELE T RDW 12.8 % 11.6-1 5.4 Not Available [facility] ([facility]) [address] [facility], [place], [address], 03/19/2022 11:11:18 03/18/20 22 03/19/2022 CBC WITH DIFFE RENTI AL/PL ATELE T platelets 255 x10e3 /uL 150-45 0 Not Available [facility] ([facility]) [address] [facility], [place], [address], 03/19/2022 11:11:18 03/18/20 22 03/19/2022 CBC WITH DIFFE RENTI AL/PL ATELE T neutrophils 42 % not estab. Not Available [facility] ([facility]) [address] [facility], [place], [address], 03/19/2022 11:11:18 03/18/20 22 03/19/2022 CBC WITH DIFFE RENTI AL/PL ATELE T lymphs 39 % not estab. Not Available [facility] ([facility]) [address] [facility] [facility], [place], [address], 03/19/2022 11:11:18 03/18/20 22 03/19/2022 CBC WITH DIFFE RENTI AL/PL ATELE T monocytes 12 % not estab. Not Available [facility] ([facility]) [address] [facility], [place], [address], 03/19/2022 11:11:18 03/18/20 22 03/19/2022 CBC WITH DIFFE RENTI AL/PL ATELE T eos 6 % not estab. Not Available [facility] ([facility]) [address] [facility], [place], [address], 03/19/2022 11:11:18 03/18/20 22 03/19/2022 CBC WITH DIFFE RENTI AL/PL ATELE T basos 1 % not estab. 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 0 Not Available [facility] ([facility]) [address] [facility], [place], [address], 03/19/2022 11:11:18 03/18/20 22 03/19/2022 CBC WITH DIFFE RENTI AL/PL ATELE T lymphs (absolute) 1.8 x10e3 /uL 0.7-3. 1 Not Available [facility] ([facility]) [address] [facility] [facility], [place], [address], 03/19/2022 11:11:18 03/18/20 22 03/19/2022 CBC WITH DIFFE RENTI AL/PL ATELE T monocytes(ab solute) 0.6 x10e3 /uL 0.1-0. 9 Not Available [facility] ([facility]) [address] [facility], [place], [address], 03/19/2022 11:11:18 03/18/20 22 03/19/2022 CBC WITH DIFFE RENTI AL/PL ATELE T eos (absolute) 0.3 x10e3 /uL 0.0-0. 4 Not Available [facility] ([facility]) [address] [facility], [place], [address], 03/19/2022 11:11:18 03/18/20 22 03/19/2022 CBC WITH DIFFE RENTI AL/PL ATELE T baso (absolute) 0.0 x10e3 /uL 0.0-0. 2 Not Available [facility] ([facility]) [address] [facility], [place], [address], 03/19/2022 11:11:18 03/18/20 22 03/19/2022 CBC WITH DIFFE RENTI AL/PL ATELE T immature granulocytes 0 % not estab. Not Available [facility] ([facility]) [address] [facility], [place], [address], 03/19/2022 11:11:18 03/18/20 22 03/19/2022 CBC WITH DIFFE RENTI AL/PL ATELE T immature grans (abs) 0.0 x10e3 /uL 0.0-0. 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 METAB OLIC PANEL (14) glucose 140 mg/dL 65-99 above high normal Not Available [facility] ([facility]) [address] [facility], [place], [address], 03/19/2022 11:11:19 03/18/20 22 03/19/2022 COMP. METAB OLIC PANEL (14) BUN 14 mg/dL 8-27 Not Available [facility] ([facility]) [address] [place], [address], 03/19/2022 11:11:19 03/18/20 22 03/19/2022 COMP. METAB OLIC PANEL (14) creatinine 1.03 mg/dL 0.76-1 .27 Not Available [facility] ([facility]) [address] [place], [address], 03/19/2022 11:11:19 03/18/20 22 03/19/2022 COMP. METAB OLIC PANEL (14) eGFR 83 mL/mi n/1.7 3 >59 Not Available [facility] ([facility]) [address] [place], [address], 03/19/2022 11:11:19 03/18/20 22 03/19/2022 COMP. METAB OLIC PANEL (14) BUN/creatini ne ratio 14 10-24 Not Available [facility] ([facility]) [address] [place], [address], 03/19/2022 11:11:19 03/18/20 22 03/19/2022 COMP. METAB OLIC PANEL (14) sodium 141 mmol/ L 134-14 4 Not Available [facility] ([facility]) [address] [place], [address], 03/19/2022 11:11:19 03/18/20 22 03/19/2022 COMP. METAB OLIC PANEL (14) potassium 4.4 mmol/ L 3.5-5. 2 Not Available [facility] ([facility]) [address] [place], [address], 03/19/2022 11:11:19 03/18/20 22 03/19/2022 COMP. METAB OLIC PANEL (14) chloride 102 mmol/ L 96-106 Not Available [facility] ([facility]) [address] [place], [address], 03/19/2022 11:11:19 03/18/20 22 03/19/2022 COMP. METAB OLIC PANEL (14) carbon dioxide, total 19 mmol/ L 20-29 below low normal Not Available [facility] ([facility]) [address] [facility], [place], [address], 03/19/2022 11:11:19 03/18/20 22 03/19/2022 COMP. METAB OLIC PANEL (14) calcium 9.5 mg/dL 8.6-10 .2 Not Available [facility] ([facility]) [address] [place], [address], 03/19/2022 11:11:19 03/18/20 22 03/19/2022 COMP. METAB OLIC PANEL (14) protein, total 6.9 g/dL 6.0-8. 5 Not Available [facility] ([facility]) [address] [place], [address], 03/19/2022 11:11:19 03/18/20 22 03/19/2022 COMP. METAB OLIC PANEL (14) albumin 4.4 g/dL 3.8-4. 8 Not Available [facility] ([facility]) [address] [place], [address], 03/19/2022 11:11:19 03/18/20 22 03/19/2022 COMP. METAB OLIC PANEL (14) globulin, total 2.5 g/dL 1.5-4. 5 Not Available [facility] ([facility]) [address] [place], [address], 03/19/2022 11:11:19 03/18/20 22 03/19/2022 COMP. METAB OLIC PANEL (14) A/G ratio 1.8 1.2-2. 2 Not Available [facility] ([facility]) [address] [place], [address], 03/19/2022 11:11:19 03/18/20 22 03/19/2022 COMP. METAB OLIC PANEL (14) bilirubin, total <0.2 mg/dL 0.0-1. 2 Not Available [facility] ([facility]) [address] [place], [address], 03/19/2022 11:11:19 03/18/20 22 03/19/2022 COMP. METAB OLIC PANEL (14) alkaline phosphatase 109 IU/L 44-121 Not Available [facility] ([facility]) [address] [facility], [place], [address], 03/19/2022 11:11:19 03/18/20 22 03/19/2022 COMP. METAB OLIC PANEL (14) AST (SGOT) 29 IU/L 0-40 Not Available [facility] ([facility]) [address] [facility], [place], [address], 03/19/2022 11:11:19 03/18/20 22 03/19/2022 COMP. METAB OLIC PANEL (14) ALT (SGPT) 26 IU/L 0-44 Not Available [facility] ([facility]) [address] [place], [address], 03/19/2022 11:11:19 03/18/20 22 03/19/2022 URINE CULTU RE, LIBBY NE urine culture, routine Final report Not Available [facility] ([facility]) [address] [place], [address], 03/20/2022 04:08:18 03/18/20 22 03/19/2022 URINE CULTU RELIBBY NE result 1 Commen t Mixed uroge nital veriot Less than 10,00 0 colon ies/m L Not Available [facility] ([facility]) [address] [place], [address], 03/20/2022 04:08:18 03/18/20 22 03/18/2022 HbA1c (hemo globi n A1c), blood HbA1C 5.6 % Not Available [facility] [address], [place], [address], 03/18/2022 11:37:49 03/18/20 22 03/18/2022 gluco se, finge rstic k, blood Blood Glucose: mg/dl 157 Not Available [facility] [address], [place], [address], 03/18/2022 11:37:05 03/18/20 22 03/18/2022 gluco se, finge rstic k, blood Reference Range (60-100) abnorm al Not Available [facility] [address], [place], [address], 03/18/2022 11:37:05 03/18/20 22 03/18/2022 drug scree n, urine Amphetamines : negati ve Not Available [facility] [address], [place], [address], 03/18/2022 11:22:15 03/18/20 22 03/18/2022 drug scree n, urine Cannabinoids : negati ve Not Available [facility] [address], [place], [address], 03/18/2022 11:22:15 03/18/20 22 03/18/2022 drug scree n, urine Cocaine: negati ve Not Available [facility] [address], [place], [address], 03/18/2022 11:22:15 03/18/20 22 03/18/2022 drug scree n, urine Opiates: negati ve Not Available [facility] [address], [place], [address], 03/18/2022 11:22:15 03/18/20 22 03/18/2022 drug scree n, urine Phenocyclidi ne: negati ve Not Available [facility] [address], [place], [address], 03/18/2022 11:22:15 03/18/20 22 03/18/2022 drug scree n, urine Barbiturates : negati ve Not Available [facility] [address], [place], [address], 03/18/2022 11:22:15 03/18/20 22 03/18/2022 drug scree n, urine Benzodiazepi conchis: negati ve Not Available [facility] [address], [place], [address], 03/18/2022 11:22:15 03/18/20 22 03/18/2022 drug scree n, urine Ethanol: negati ve Not Available [facility] [address], [place], [address], 03/18/2022 11:22:15 03/18/20 22 03/18/2022 drug scree n, urine Hallucinogen s: negati ve Not Available [facility] [address], [place], [address], 03/18/2022 11:22:15 03/18/20 22 03/18/2022 drug scree n, urine Inhalants: negati ve Not Available [facility] [address], [place], [address], 03/18/2022 11:22:15 03/18/20 22 03/18/2022 drug scree n, urine Anabolic Steroids: negati ve Not Available [facility] [address], [place], [address], 03/18/2022 11:22:15 03/18/20 22 03/18/2022 drug scree n, urine Other: negati ve Not Available [facility] [address], [place], [address], 03/18/2022 11:22:15 03/18/20 22 03/18/2022 urina lysis , dipst ick Leukocytes Negati ve Not Available [facility] [address], [place], [address], 03/18/2022 11:21:58 03/18/20 22 03/18/2022 urina lysis , dipst ick Nitrite negati ve Not Available [facility] [address], [place], [address], 03/18/2022 11:21:58 03/18/20 22 03/18/2022 urina lysis , dipst ick Urobilinogen .2 Not Available [facility] [address], [place], [address], 03/18/2022 11:21:58 03/18/20 22 03/18/2022 urina lysis , dipst ick Protein Negati ve Not Available [facility] [address], [place], [address], 03/18/2022 11:21:58 03/18/20 22 03/18/2022 urina lysis , dipst ick pH 6.0 Not Available [facility] [address], [place], [address], 03/18/2022 11:21:58 03/18/20 22 03/18/2022 urina lysis , dipst ick Blood Negati ve Not Available [facility] [address], [place], [address], 03/18/2022 11:21:58 03/18/20 22 03/18/2022 urina lysis , dipst ick Specific [place] 1.020 Not Available [facility] [address], [place], [address], 03/18/2022 11:21:58 03/18/20 22 03/18/2022 urina lysis , dipst ick Ketone Negati ve Not Available [facility] [address], [place], [address], 03/18/2022 11:21:58 03/18/20 22 03/18/2022 urina lysis , dipst ick Bilirubin Negati ve Not Available [facility] [address], [place], [address], 03/18/2022 11:21:58 03/18/20 22 03/18/2022 urina lysis , dipst ick Glucose [address] [facility] [address], [place], [address], 03/18/2022 11:21:58 03/18/20 22 03/18/2022 urina lysis , dipst ick Appearance Slight ly Cloudy Not Available [facility] [address], [place], [address], 03/18/2022 11:21:58 03/18/20 22 03/18/2022 urina lysis , dipst ick Color Dark Yellow Not Available [facility] [address], [place], [address], 03/18/2022 11:21:58 06/22/20 22 06/23/2022 TSH+F REE T4 TSH 2.450 uIU/m L 0.450- 4.500 Not Available [facility] ([facility]) [address] [facility], [place], [address], 06/23/2022 08:21:30 06/22/20 22 06/23/2022 TSH+F REE T4 T4,free(dire ct) 1.23 NG/dL 0.82-1 .77 Not Available [facility] ([facility]) [address] [facility], [place], [address], 06/23/2022 08:21:30 06/22/20 22 06/23/2022 CBC WITH DIFFE RENTI AL/PL ATELE T WBC 5.1 x10e3 /uL 3.4-10 .8 Not Available [facility] ([facility]) [address] [facility], [place], [address], 06/23/2022 08:21:30 06/22/20 22 06/23/2022 CBC WITH DIFFE RENTI AL/PL ATELE T RBC 4.99 x10e6 /uL 4.14-5 .80 Not Available [facility] ([facility]) [address] [place], [address], 06/23/2022 08:21:30 06/22/20 22 06/23/2022 CBC WITH DIFFE RENTI AL/PL ATELE T hemoglobin 16.2 g/dL 13.0-1 7.7 Not Available [facility] ([facility]) [address] [place], [address], 06/23/2022 08:21:30 06/22/20 22 06/23/2022 CBC WITH DIFFE RENTI AL/PL ATELE T hematocrit 47.1 % 37.5-5 1.0 Not Available [facility] ([facility]) [address] [place], [address], 06/23/2022 08:21:30 06/22/20 22 06/23/2022 CBC WITH DIFFE RENTI AL/PL ATELE T MCV 94 fL 79-97 Not Available [facility] ([facility]) [address] [place], [address], 06/23/2022 08:21:30 06/22/20 22 06/23/2022 CBC WITH DIFFE RENTI AL/PL ATELE T MCH 32.5 pg 26.6-3 3.0 Not Available [facility] ([facility]) [address] [place], [address], 06/23/2022 08:21:30 06/22/20 22 06/23/2022 CBC WITH DIFFE RENTI AL/PL ATELE T MCHC 34.4 g/dL 31.5-3 5.7 Not Available [facility] ([facility]) [address] [place], [address], 06/23/2022 08:21:30 06/22/20 22 06/23/2022 CBC WITH DIFFE RENTI AL/PL ATELE T RDW 13.1 % 11.6-1 5.4 Not Available [facility] ([facility]) [address] [place], [address], 06/23/2022 08:21:30 06/22/20 22 06/23/2022 CBC WITH DIFFE RENTI AL/PL ATELE T platelets 236 x10e3 /uL 150-45 0 Not Available [facility] ([facility]) [address] [facility], [place], [address], 06/23/2022 08:21:30 06/22/20 22 06/23/2022 CBC WITH DIFFE RENTI AL/PL ATELE T neutrophils 46 % not estab. Not Available [facility] ([facility]) [address] [place], [address], 06/23/2022 08:21:30 06/22/20 22 06/23/2022 CBC WITH DIFFE RENTI AL/PL ATELE T lymphs 36 % not estab. Not Available [facility] ([facility]) [address] [place], [address], 06/23/2022 08:21:30 06/22/20 22 06/23/2022 CBC WITH DIFFE RENTI AL/PL ATELE T monocytes 12 % not estab. Not Available [facility] ([facility]) [address] [place], [address], 06/23/2022 08:21:30 06/22/20 22 06/23/2022 CBC WITH DIFFE RENTI AL/PL ATELE T eos 5 % not estab. Not Available [facility] ([facility]) [address] [facility], [place], [address], 06/23/2022 08:21:30 06/22/20 22 06/23/2022 CBC WITH DIFFE RENTI AL/PL ATELE T basos 1 % not estab. 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 0 Not Available [facility] ([facility]) [address] [place], [address], 06/23/2022 08:21:30 06/22/20 22 06/23/2022 CBC WITH DIFFE RENTI AL/PL ATELE T lymphs (absolute) 1.8 x10e3 /uL 0.7-3. 1 Not Available [facility] ([facility]) [address] [place], [address], 06/23/2022 08:21:30 06/22/20 22 06/23/2022 CBC WITH DIFFE RENTI AL/PL ATELE T monocytes(ab solute) 0.6 x10e3 /uL 0.1-0. 9 Not Available [facility] ([facility]) [address] [facility], [place], [address], 06/23/2022 08:21:30 06/22/20 22 06/23/2022 CBC WITH DIFFE RENTI AL/PL ATELE T eos (absolute) 0.3 x10e3 /uL 0.0-0. 4 Not Available [facility] ([facility]) [address] [facility], [place], [address], 06/23/2022 08:21:30 06/22/20 22 06/23/2022 CBC WITH DIFFE RENTI AL/PL ATELE T baso (absolute) 0.0 x10e3 /uL 0.0-0. 2 Not Available [facility] ([facility]) [address] [facility], [place], [address], 06/23/2022 08:21:30 06/22/20 22 06/23/2022 CBC WITH DIFFE RENTI AL/PL ATELE T immature granulocytes 0 % not estab. Not Available [facility] ([facility]) [address] [facility], [place], [address], 06/23/2022 08:21:30 06/22/20 22 06/23/2022 CBC WITH DIFFE RENTI AL/PL ATELE T immature grans (abs) 0.0 x10e3 /uL 0.0-0. 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 METAB OLIC PANEL (14) glucose 124 mg/dL 70-99 above high normal Not Available [facility] ([facility]) [address] [place], [address], 06/23/2022 08:21:31 06/22/20 22 06/23/2022 COMP. METAB OLIC PANEL (14) BUN 16 mg/dL 8-27 Not Available [facility] ([facility]) [address] [place], [address], 06/23/2022 08:21:31 06/22/20 22 06/23/2022 COMP. METAB OLIC PANEL (14) creatinine 1.00 mg/dL 0.76-1 .27 Not Available [facility] ([facility]) [address] [place], [address], 06/23/2022 08:21:31 06/22/20 22 06/23/2022 COMP. METAB OLIC PANEL (14) eGFR 85 mL/mi n/1.7 3 >59 Not Available [facility] ([facility]) [address] [place], [address], 06/23/2022 08:21:31 06/22/20 22 06/23/2022 COMP. METAB OLIC PANEL (14) BUN/creatini ne ratio 16 10-24 Not Available [facility] ([facility]) [address] [place], [address], 06/23/2022 08:21:31 06/22/20 22 06/23/2022 COMP. METAB OLIC PANEL (14) sodium 142 mmol/ L 134-14 4 Not Available [facility] ([facility]) [address] [place], [address], 06/23/2022 08:21:31 06/22/20 22 06/23/2022 COMP. METAB OLIC PANEL (14) potassium 4.3 mmol/ L 3.5-5. 2 Not Available [facility] ([facility]) [address] [facility], [place], [address], 06/23/2022 08:21:31 06/22/20 22 06/23/2022 COMP. METAB OLIC PANEL (14) chloride 101 mmol/ L 96-106 Not Available [facility] ([facility]) [address] [facility], [place], [address], 06/23/2022 08:21:31 06/22/20 22 06/23/2022 COMP. METAB OLIC PANEL (14) carbon dioxide, total 25 mmol/ L 20-29 Not Available [facility] ([facility]) [address] [place], [address], 06/23/2022 08:21:31 06/22/20 22 06/23/2022 COMP. METAB OLIC PANEL (14) calcium 9.3 mg/dL 8.6-10 .2 Not Available [facility] ([facility]) [address] [place], [address], 06/23/2022 08:21:31 06/22/20 22 06/23/2022 COMP. METAB OLIC PANEL (14) protein, total 7.1 g/dL 6.0-8. 5 Not Available [facility] ([facility]) [address] [place], [address], 06/23/2022 08:21:31 06/22/20 22 06/23/2022 COMP. METAB OLIC PANEL (14) albumin 4.6 g/dL 3.8-4. 8 Not Available [facility] ([facility]) [address] [place], [address], 06/23/2022 08:21:31 06/22/20 22 06/23/2022 COMP. METAB OLIC PANEL (14) globulin, total 2.5 g/dL 1.5-4. 5 Not Available [facility] ([facility]) [address] [place], [address], 06/23/2022 08:21:31 06/22/20 22 06/23/2022 COMP. METAB OLIC PANEL (14) A/G ratio 1.8 1.2-2. 2 Not Available [facility] ([facility]) [address] [place], [address], 06/23/2022 08:21:31 06/22/20 22 06/23/2022 COMP. METAB OLIC PANEL (14) bilirubin, total 0.5 mg/dL 0.0-1. 2 Not Available [facility] ([facility]) [address] [place], [address], 06/23/2022 08:21:31 06/22/20 22 06/23/2022 COMP. METAB OLIC PANEL (14) alkaline phosphatase 139 IU/L 44-121 above high normal Not Available [facility] ([facility]) [address] [place], [address], 06/23/2022 08:21:31 06/22/20 22 06/23/2022 COMP. METAB OLIC PANEL (14) AST (SGOT) 30 IU/L 0-40 Not Available [facility] ([facility]) [address] [place], [address], 06/23/2022 08:21:31 06/22/20 22 06/23/2022 COMP. METAB OLIC PANEL (14) ALT (SGPT) 32 IU/L 0-44 Not Available [facility] ([facility]) [address] [place], [address], 06/23/2022 08:21:31 06/22/20 22 06/23/2022 LIPID PANEL cholesterol, total 256 mg/dL 100-19 9 above high normal Not Available [facility] ([facility]) [address] [facility], [place], [address], 06/23/2022 08:21:32 06/22/20 22 06/23/2022 LIPID PANEL triglyceride s 202 mg/dL 0-149 above high normal Not Available [facility] ([facility]) [address] [facility], [place], [address], 06/23/2022 08:21:32 06/22/20 22 06/23/2022 LIPID PANEL HDL cholesterol 41 mg/dL >39 Not Available [facility] ([facility]) [address] [facility], [place], [address], 06/23/2022 08:21:32 06/22/20 22 06/23/2022 LIPID PANEL VLDL cholesterol sandie 38 mg/dL 5-40 Not Available [facility] ([facility]) [address] [facility], [place], [address], 06/23/2022 08:21:32 06/22/20 22 06/23/2022 LIPID PANEL LDL chol calc ([facility]) 177 mg/dL 0-99 above high normal Not Available [facility] ([facility]) [address] [facility], [place], [address], 06/23/2022 08:21:32 06/22/20 22 06/23/2022 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 Not Available [facility] ([facility]) [address] [facility], [place], [address], 06/23/2022 08:21:32 06/22/20 22 06/22/2022 PSA TOTAL (REFL EX TO FREE) reflex criteria Commen t The perce nt free PSA is perfo rmed on a refle x basis only when the total PSA is betwe en 4.0 and 10.0 ng/mL . Not Available [facility] ([facility]) [address] [facility], [place], [address], 06/23/2022 08:21:33 06/22/20 22 06/23/2022 PSA TOTAL (REFL EX TO FREE) prostate specific Ag 0.3 NG/mL 0.0-4. 0 Diana ECLIA metho dolog y. Accor ding to the Ameri can [employer]o g[employer] iatio n, Serum PSA shoul d decre ase and remai n at undet ectab le level s after radic al prost atect jamar. The AUA defin es bioch emica l recur rence as an initi al PSA value 0.2 ng/mL or great er follo wed by a subse quent confi rmato ry PSA value 0.2 ng/mL or great er. Value s obtai remigio with diffe rent assay metho ds or kits canno t be used inter sam eably . Resul ts canno t be inter prete d as absol samanta evide nce of the prese nce or absen ce of edgar lemus se. Not Available [facility] ([facility]) [address] [facility], [place], [address], 06/23/2022 08:21:33 06/22/20 22 06/23/2022 HEMOG LOBIN A1C hemoglobin A1C 5.8 % 4.8-5. 6 above high normal Predi abete s: 5.7 - 6.4 Diabe michelle: >6.4 Glyce lacy contr ol for adult s with diabe michelle: <7.0 Not Available [facility] ([facility]) [address] [facility], [place], [address], 06/23/2022 08:21:34 06/22/20 22 06/23/2022 VITAM IN D, 25-HY DROXY vitamin D, 25-hydroxy 22.0 NG/mL 30.0-1 00.0 below low normal Vitam in D defic iency has been [...] um and D. Douglas moffett [place]: The [facility] Press . 2. Che lake [place], Aym esquivel [place], Kylah off-F jennifer i BARRERA, et al. Evalu ation , treat ment, and preve ntion of vitam in D defic iency : an Endoc rine Socie ty clini sandie pract ice guide line. JCEM. 2010; 96(7) :1911 -30. Not Available [facility] ([facility]) [address] [facility], [place], [address], 06/23/2022 08:21:34 06/28/20 22 06/29/2022 ALBUM IN/CR EATIN INE RATIO ,URIN E creatinine, urine 60.5 mg/dL not estab. Not Available [facility] ([facility]) [address] [facility], [place], [address], 06/29/2022 10:12:13 06/28/20 22 06/29/2022 ALBUM IN/CR EATIN INE RATIO ,URIN E albumin, urine <3.0 ug/mL not estab. Kimi ified by repea t lucina sis Not Available [facility] ([facility]) [address] [facility], [place], [address], 06/29/2022 10:12:13 06/28/20 22 06/29/2022 ALBUM IN/CR EATIN INE RATIO ,URIN E alb/creat ratio <5 mg/g_ creat 0-29 Ellen l: 0 - 29 Moder ately incre ased: 30 - 300 Sever conner incre ased: >300 Not Available [facility] ([facility]) [address] [facility], [place], [address], 06/29/2022 10:12:13 06/28/20 22 06/28/2022 drug scree n, urine Amphetamines : negati ve Not Available [facility] [address], [place], [address], 06/28/2022 11:16:11 06/28/20 22 06/28/2022 drug scree n, urine Cannabinoids : negati ve Not Available [facility] [address], [place], [address], 06/28/2022 11:16:11 06/28/20 22 06/28/2022 drug scree n, urine Cocaine: negati ve Not Available [facility] [address], [place], [address], 06/28/2022 11:16:11 06/28/20 22 06/28/2022 drug scree n, urine Opiates: negati ve Not Available [facility] [address], [place], [address], 06/28/2022 11:16:11 06/28/20 22 06/28/2022 drug scree n, urine Barbiturates : negati ve Not Available [facility] [place] [address], [place], [address], 06/28/2022 11:16:11 06/28/20 22 06/28/2022 drug scree n, urine Benzodiazepi conchis: negati ve Not Available [facility] [place] [address], [place], [address], 06/28/2022 11:16:11 06/28/20 22 06/28/2022 drug scree n, urine Hallucinogen s: negati ve Not Available [facility] [place] [address], [place], [address], 06/28/2022 11:16:11 01/07/20 22 01/06/2022 elect rocar diogr am No observ ation record ed. [email or web address] Not Available 2021 11:08:48 01/07/20 22 01/06/2022 XR, chest , 2 view No observ ation record ed. [facility] (Central Scheduling) [address] , [place], [address], 01/06/2022 13:15:54 03/20/20 22 03/20/2022 CT, abdom en + pelvi s, w/o contr ast No observ ation record ed. [email or web address] [facility] ([facility]) [address] [place], [address], 03/29/2022 10:37:16 Result Notes None recorded. Problems Name Problem SNOMED Code Status Onset Date Resolution Date Notes Provider Name and Address Organization Details Recorded Time Hyperlip idemia 59246596 Active Carleen hsu [place] - [facility] 7 11:11:14 Diabetes mellitus 58720105 Active Merary hsu [place] [facility] 2 10:11:19 Migraine 92406419 Active Carleen hsu [place] [facility] 7 11:11:54 Suspecte d COVID-19 394253473 Completed 03/16/2021 Removal Reason: Problem added by user [email or web address] from the COVID-19 watch flag Lita Ko null, [place] - [facility] 1 16:44:37 Ulcerati ve colitis 25331555 Active Merary Hyman [place] - [facility] 2 10:11:18 Enzyme level - finding 733687638 Active Merary [place]yman [place] - [facility] 2 10:11:18 Low back pain 559510748 Active Merary Hyman [place] [facility] 2 10:11:18 History of calculus of kidney 462652906 Active Merary [place]yman [place] [facility] 2 10:11:18 Depressi ve disorder 48249454 Active Merary [place]yman [place] [facility] 2 10:11:18 Kidney stone 02520578 Active Merary [place]yman [place] [facility] 2 10:11:18 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 516634247 Active Merary [place] [facility] 2 10:11:18 Irritabl e bowel syndrome 92809890 Active Merary [place] [facility] 2 10:11:18 Cyst of kidney 891455471 Active Merary [place] [facility] 2 10:11:18 Heredita ry essentia l tremor 455254285 Active Merary [place] [facility] 2 10:11:18 Divertic jose of intestin e 10312330 Active Merary [place] [facility] 2 10:11:18 Benign prostati c hyperpla keya 361408357 Active Merary [place] [facility] 2 10:11:18 Bipolar I disorder 420611803 Active Merary [place] [facility] 2 10:11:18 Chronic diarrhea 177867995 Active Merary [place] [facility] 2 10:11:18 Chest pain 85582232 Active Merary [place] [facility] 2 10:11:18 Incomple te emptying of urinary bladder due to benign prostati c hypertro phy 98529942881 9108 Active Merary [place] [facility] 2 10:11:18 Urinary tract infectio us disease 24843426 Active Merary [place] [facility] 2 10:11:18 History of clinical finding in subject 391018101 Fior Hyman [place] [facility] 2 10:11:18 Chronic prostati tis Active Merary [place] [facility] 2 10:11:19 Postoper ative pain 675582645 Active Merary [place] [facility] 2 10:11:19 Gastro-e sophagea l reflux disease with esophagi tis 186814175 Active Merary [place] [facility] 2 10:11:19 Gastropa resis syndrome 788816216 Fior [place] [facility] 2 10:11:19 History of insertio n of stent into ureter 227436692 Fior [place] [facility] 2 10:11:19 Fracture at wrist and/or hand level 536415212 Fior [place]yman [place] [facility] 2 10:11:19 Non-alco holic fatty liver 025526773 Fior [place] [facility] 2 10:11:19 Seasonal allergic rhinitis 913485498 Active Merary [place] [facility] 2 10:11:19 Ureteric stone 45515352 Fior [place] [facility] 2 10:11:19 Gastroes ophageal reflux disease 848754923 Fior [place] [facility] 2 10:11:19 Chronic ulcerati ve colitis 789923192 Active Merary [place] [facility] 2 10:11:19 Disorder of gallblad dayna 70267787 Active Merary [place] [facility] 2 10:11:19 Anxiety 11541134 Active Merary [place] [facility] 2 10:11:19 Epigastr ic pain 52598005 Active Merary [place] [facility] 2 10:11:19 History of divertic ulitis 45482931947 9100 Active Merary [place] [facility] 2 10:11:19 Abdomina l pain 96708574 Active Merary [place] [facility] 2 10:11:19 Essentia l hyperten paige 10340896 Active 2016 Merary [place] [facility] 2 10:11:19 Bipolar disorder 64588803 Active 2017 Merary hsu, [place] - [facility] 2 10:11:18 Acute prostati tis 19127801 Active 2017 Merary hsu[place] - [facility] 2 10:11:18 Chronic pain 05690958 Active 2019 Merary hsu[place] - [facility] 2 10:11:18 SARS-CoV -2 Completed 201902/17/2021 Removal Reason: Problem marked historic al by user [email or web address] from the [employer] watch flag Marisol hsu, [place] - [facility] 1 12:25:30 Exposure to SARS-CoV -2 Completed 201902/17/2021 Removal Reason: Problem marked historic al by user [email or web address] from the Robert Applebaum MD19 watch flag Marisol hsu[place] - [facility] 1 12:25:30 Neuropat hy 340790735 Active 2020 Merary hsu, [place] - [facility] 2 10:11:18 Contact dermatit is 09697416 Active 2021 Kenya Antony, SKIVER OPERATOR [address], [place], [address], [place] - [facility] 2 11:16:42 Vitamin D deficien cy 53998352 Active 2021 Kenya Antony, SKIVER OPERATOR [address], [place], [address], [place] - [facility] 11/21/202 2 11:43:58 Acute bilatera l otitis media 100203178 Active 2021 Kenya Antony APRN [address], [place], [address], [facility] - [facility] 2 11:45:33 Notes:Some problems listed i n Document: #[id number] could not be added to this patient's chart. Please review this document and add these problems to the patient's chart manually as needed. Problem Notes None recorded. Procedures Surgical History Date Name Laterality Status Provider Name and Address Organization Details Recorded Time 06/28/20 Advance Care Planning completed [place]ca [place] [facility] 06/28/2022 08:38:34 06/28/20 Functional Status Assessed completed Anca [place] [facility] 06/28/2022 08:38:34 03/12/20 Medication Reconcilliation completed Lita [place] [facility] 03/12/2021 17:26:52 12/10/19 21 Medication Reconcilliation completed Lita Ko [place] [facility] 12/09/2020 10:44:50 09/30/19 21 Systolic B/P less than 130 mm Hg completed Merary [place]yman [place] [facility] 09/30/2020 09:39:40 09/30/19 Diastolic B/P less than 80 mm Hg completed Merary [place]yman [place] [facility] 09/30/2020 09:39:42 08/27/19 Cryosurgery Dermatology completed Samantha Vidal APRN [address], [place], [address], [place] - [facility] 08/27/2020 11:22:59 04/30/20 20 Suture/Staple removal completed Richard Antony MD [address], [place], [address], [place] - [facility] 04/30/2020 09:07:36 04/30/20 Diastolic B/P 80-89 mm Hg completed Skyla Shanta [place] [facility] 04/30/2020 08:53:14 04/30/20 Systolic B/P 130-139 mm Hg completed Skyla Shanta [place] [facility] 04/30/2020 08:53:09 04/23/20 20 Skin Biopsy and/or Mucous Membrane completed Richard Antony MD [address], [place], [address], [place] - [facility] 04/23/2020 11:21:44 04/23/20 20 Diastolic B/P less than 80 mm Hg completed Skyla Shanta [place] - [facility] 04/23/2020 10:58:43 04/23/20 20 Systolic B/P 130-139 mm Hg completed Skyla Shanta [place] - [facility] 04/23/2020 10:58:35 03/20/20 20 Systolic B/P less than 130 mm Hg completed Thania Jimenes [place] - [facility] 03/20/2020 08:57:31 03/20/20 20 Diastolic B/P less than 80 mm Hg completed Thania Jimenes [place] - [facility] 03/20/2020 08:57:33 02/29/20 20 Medication Reconcilliation completed Lita Ko [place] - [facility] 02/29/2020 14:41:22 10/09/19 20 Advance Care Planning completed Anca Moore RN [address], [place], [address], [place] [facility] 10/08/2019 11:57:14 10/09/19 20 Functional Status Assessed completed Anca Moore RN [address], [place], [address], [place] [facility] 10/08/2019 11:57:14 09/06/19 20 Medication Reconcilliation completed Lita Ko [place] - [facility] 09/06/2019 10:08:41 08/29/19 20 Prostate Surgery completed Lita Ko [place] [facility] 09/06/2019 10:13:17 10/18/19 19 Systolic B/P less than 130 mm Hg completed Merary Hyman [place] - [facility] 10/17/2018 16:06:58 10/18/19 19 Diastolic B/P less than 80 mm Hg completed Merary Hyman [place] - [facility] 10/17/2018 16:07:00 10/12/19 19 Systolic B/P less than 130 mm Hg completed Thania Jimenes [place] - [facility] 10/11/2018 15:12:37 10/12/19 19 Diastolic B/P 80-89 mm Hg completed Thania Jimenes [place] - [facility] 10/11/2018 15:12:40 10/05/19 19 Systolic B/P less than 130 mm Hg completed Merary Hyman [place] - [facility] 10/05/2018 14:43:59 10/05/19 19 Diastolic B/P less than 80 mm Hg completed Merary Hyman [facility] 10/05/2018 14:44:02 08/21/19 19 Systolic B/P less than 130 mm Hg completed Merary Hyman [facility] 08/21/2018 14:28:16 08/21/19 19 Diastolic B/P 80-89 mm Hg completed Merary Hyman [facility] 08/21/2018 14:28:18 Cholecystectomy, laparoscopic completed Thania Jimenes [facility] 08/27/2016 13:30:11 Nrv grf 1strnd arm/leg <4cm completed Thania Jimenes [facility] 08/27/2016 13:30:34 Imaging Results None recorded. Procedure Notes None recorded. Medical Equipment None Reported. Allergies Allergen ID Allergen Name Allergen Category Reaction Reaction Severity Criticality Documentation Date Start Date Code Code System Note Provider Name and Address Organization Details Recorded Time [id number] mometason e furoate medicatio n Not available Not available Not available 03/02/20222021 99987 RxNorm Merary hsu [place] [facility] 2 10:11:10 769590 levofloxa val medicatio n Not available Not available Not available 03/02/20222021 48092 RxNorm Merary hsu [place] [facility] 2 10:11:10 912431 atorvasta tin medicatio n Not available Not available Not available 03/02/20222021 31741 RxNorm Merary hsu [place] [facility] 2 10:11:10 145120 metronida zole medicatio n Not available Not available Not available 03/02/20222021 6922 RxNorm Merary hsu [place] [facility] 2 10:11:10 55352 Levaquin medicatio n hives Not available Not available 08/27/201687494 2 RxNorm Thania hsu [place] [facility] 7 13:22:58 26975 Flagyl medicatio n Not available Not available Not available 08/27/201622935 6 RxNorm prost ate swell ing Thania Jimenes [place] - [facility] 7 13:23:14 68206 Azactam medicatio n Not available Not available Not available 08/27/201683442 1 RxNorm breat argenisrigoberto Jim[place] - [facility] 7 13:23:39 85631 Gralise medicatio n Not available Not available Not available 08/27/2016 42952 76 RxNorm viole nt affec t Marisol Hidalgo null[place] - [facility] 0 10:54:50 61043 prednison e medicatio n Not available Not available Not available 08/27/20162021 8640 RxNorm Merary Hyman [place] - [facility] 2 10:11:10 13373 lithium Not available Not available Not available Not available 01/24/20182021 6448 RxNorm Merary Hyman [place] - [facility] 2 10:11:10 46111 topiramat e medicatio n Not available Not available Not available 01/24/20182021 92227 RxNorm Merary Hyman [place] - [facility] 2 10:11:10 Medications Name Sig Start Date Stop Date Status Note LastModified by Organization Details LastModified Time vitamin d3 50 mcg (1999 ut) TAKE 1 CAPSULE BY MOUTH ONCE DAILY active Not Available Not Available No t Available celecoxib 200 mg capsule 200 mg by oral route. 02/19 completed Not Available Not Available Not Available ketorolac 15 mg/mL injection solution 15 mg x 1 dose now 08/21 completed Not Available Not Available Not Available cyclobenzap rine 10 mg tablet TAKE 1 TABLET BY MOUTH 3 TIMES DAILY NEEDED. MAY CAUSE DROWSINES S 02/28 completed Not Available Not Available Not Available amoxicillin 500 mg capsule Take 1 capsule 3 times a day by oral route for 10 days. 09/16 completed Not Available Not Available Not Available methocarbam ol 500 mg tablet Take 1 tablet twice a day by oral route as needed. 06/16 completed Not Available Not Available Not Available metformin 500 mg tablet 500 mg by oral route. 10/16 completed Not Available Not Available Not Available primidone 50 mg tablet 02/19 completed Not Available Not Available Not Available nystatin 100,000 unit/mL oral suspension Take 5 mL 4 times a day by oral route. 07/28 completed Not Available Not Available Not Available gabapentin 600 mg tablet TAKE 1 TABLET BY MOUTH THREE TIMES DAILY NEEDED. active Not Available Not Available No t Available doxycycline hyclate 100 mg capsule 100 mg by oral route. 09/06 completed Not Available Not Available Not Available atorvastati n 20 mg tablet TAKE 1 TABLET BY MOUTH ONCE DAILY. 11/14 completed Not Available Not Available Not Available lamotrigine 200 mg tablet Take 1 tablet twice a day by oral route in the morning for 30 days. 09/12 completed Not Available Not Available Not Available Carafate 100 mg/mL oral suspension TAKE 10 ML BY MOUTH 4 TIMES DAILY, NEEDED. active Not Available Not Available No t Available quetiapine 300 mg tablet 03/21 completed Not Available Not Available Not Available divalproex 250 mg tablet,sreekanth yed release 1500 mg by oral route. 06/05 completed Not Available Not Available Not Available azithromyci n 250 mg tablet TAKE 2 TABLETS (500 MG) BY ORAL ROUTE ONCE DAILY FOR 1 DAY THEN 1 TABLET (250 MG) BY ORAL ROUTE ONCE DAILY FOR 4 DAYS 06/05 completed Not Available Not Available Not Available ibuprofen 800 mg tablet TAKE 1 TABLET BY MOUTH THREE TIMES DAILY active Not Available Not Available No t Available ranitidine 300 mg tablet Take 1 tablet every day by oral route. 09/27 completed Not Available Not Available Not Available sumatriptan 100 mg tablet TAKE 1 TABLET AT ONSET OF MIGRAINE HEADACHE. MAY REPEAT IN 2 HOURS IF NEEDED. DO NOT EXCEED 2 TABLETS IN 24 HOURS active Not Available Not Available No t Available hydrocodone 5 mg-acetamin ophen 325 mg tablet 1 tablet by oral route. 10/08 completed Not Available Not Available Not Available ondansetron HCl 8 mg tablet TAKE 1 TABLET EVERY 8 HOURS NEEDED. 07/28 completed Not Available Not Available Not Available minocycline 100 mg capsule 02/19 completed Not Available Not Available Not Available meloxicam 15 mg tablet TAKE 1 TABLET BY MOUTH DAILY. active Not Available Not Available No t Available promethazin e 12.5 mg tablet TAKE 1 TABLETBY MOUTH EVERY 6-8 HOURS NEEDED. 11/14 completed Not Available Not Available Not Available ondansetron HCl 4 mg tablet TAKE 1 TABLET BY MOUTH 4 TIMES DAILY NEEDED FOR NAUSEA AND VOMITING 07/28 completed Not Available Not Available Not Available propranolol ER 60 mg capsule,24 hr,extended release TAKE 1 CAPSULE BY MOUTH DAILY. 03/16 completed Not Available Not Available Not Available gabapentin 400 mg capsule TAKE 1 CAPSULE BY MOUTH THREE TIMES DAILY 06/28 completed Not Available Not Available Not Available Accu-Chek Softclix Lancets USE DIRECTED ONCE DIALY. active Not Available Not Available No t Available topiramate 25 mg tablet 11/14 completed Not Available Not Available Not Available lithium carbonate 150 mg capsule 150 mg by oral route. 09/05 completed Not Available Not Available Not Available amlodipine 5 mg tablet TAKE 1 TABLET BY MOUTH ONCE DAILY. active Not Available Not Available No t Available acyclovir 400 mg tablet TAKE 1 TABLET EVERY 8 HOURS BY MOUTH FOR 10 DAYS. 07/28 completed Not Available Not Available Not Available divalproex 500 mg tablet,sreekanth yed release 500 mg by oral route. active Not Available Not Available No t Available ciprofloxac in 500 mg tablet 500 mg by oral route. 02/28 completed Not Available Not Available Not Available sulfamethox azole 800 mg-trimetho prim 160 mg tablet TAKE 1 TABLET BY MOUTH TWICE DAILY active Not Available Not Available No t Available aspirin 81 mg tablet,sreekanth yed release TAKE 1 TABLET BY MOUTH TWICE A DAY active Not Available Not Available No t Available quetiapine 100 mg tablet 100 mg by oral route. 06/16 completed Not Available Not Available Not Available amantadine HCl 100 mg capsule TAKE ONE (1) CAPSULE BY MOUTH DAILY FOR TREMORS active Not Available Not Available No t Available triamcinolo ne acetonide 0.1 % topical cream APPLY A THIN LAYER TO THE AFFECTED AREA(S) TWCIE DAILY. active Not Available Not Available No t Available ketorolac 30 mg/mL (1 mL) injection solution Inject 30 mg every 6 hours by intramusc ular route. 01/04 completed Not Available Not Available Not Available ondansetron 8 mg disintegrat ing tablet Place 1 tablet every 6 hours by transling ual route for 30 days. 02/19 completed Not Available Not Available Not Available ketorolac 10 mg tablet TAKE 1 TABLET BY MOUTH 3 TIMES DAILY NEEDED FOR PAIN. 07/28 completed Not Available Not Available Not Available erythromyci n stearate 250 mg tablet 250 mg by oral route. 07/09 completed Not Available Not Available Not Available meloxicam 7.5 mg tablet TAKE 1 TABLET BY MOUTH ONCE DAILY. 03/28 completed Not Available Not Available Not Available erythromyci n 250 mg tablet 03/20 completed Not Available Not Available Not Available Tessalon Perles 100 mg capsule Take 1 capsule 3 times a day by oral route as needed for 10 days. 08/23 completed Not Available Not Available Not Available propranolol 10 mg tablet TAKE 1 TABLET BY MOUTH TWICE A DAY FOR TREMORS active Not Available Not Available No t Available amoxicillin 875 mg tablet TAKE 1 TABLET EVERY 12 HOURS active Not Available Not Available No t Available ziprasidone 20 mg capsule 03/21 completed Not Available Not Available Not Available primidone 250 mg tablet TAKE 1 TABLET BY MOUTH ONCE DAILY. 07/28 completed Not Available Not Available Not Available methocarbam ol 750 mg tablet Take 1 tablet 3 times a day by oral route as needed. 03/28 completed Not Available Not Available Not Available hyoscyamine ER 0.375 mg tablet,exte nded release,12 hr 0.375 mg by oral route. 07/09 completed Not Available Not Available Not Available malathion 0.5 % lotion 03/21 completed Not Available Not Available Not Available tamsulosin 0.4 mg capsule TAKE 1 CAPSULE BY MOUTH ONCE DAILY. 2022 active Not Available Not Available Not Avai lable dicyclomine 20 mg tablet 20 mg by oral route. active Not Available Not Available No t Available phenazopyri dine 100 mg tablet 100 mg by oral route. 07/11 completed Not Available Not Available Not Available hydrocodone 7.5 mg-acetamin ophen 325 mg tablet TAKE 1 TABLET BY MOUTH 4 TIMES DAILY NEEDED FOR PAIN. 07/28 completed Not Available Not Available Not Available pantoprazol e 40 mg tablet,sreekanth yed release Take 1 tablet every day by oral route. 03/21 completed Not Available Not Available Not Available nortriptyli ne 10 mg capsule TAKE 3 CAPSULES BY MOUTH AT BEDTIME. active Not Available Not Available No t Available esomeprazol e magnesium 40 mg capsule,del ayed release TAKE 1 CAPSULE BY MOUTH TWICE DAILY active Not Available Not Available No t Available ranitidine 300 mg capsule 300 mg by oral route. 09/19 completed Not Available Not Available Not Available divalproex ER 500 mg tablet,exte nded release 24 hr TAKE 1 TABLET BY MOUTH TWICE DAILY. active Not Available Not Available No t Available promethazin e 25 mg tablet TAKE 1 TABLET EVERY 6-8 HOURS NEEDED. 07/28 completed Not Available Not Available Not Available nitroglycer in 0.4 mg sublingual tablet 09/05 completed Not Available Not Available Not Available sulfamethox azole 200 mg-trimetho prim 40 mg/5 mL oral suspension Take 20 mL every 12 hours by oral route. 11/14 completed Not Available Not Available Not Available gabapentin 300 mg capsule TAKE 1 CAPSULE BY MOUTH THREE TIMES DAILY 07/28 completed Not Available Not Available Not Available omeprazole 20 mg capsule,del ayed release 03/28 completed Not Available Not Available Not Available diclofenac sodium 75 mg tablet,sreekanth yed release 75 mg by oral route. 12/08 completed Not Available Not Available Not Available diclofenac sodium 50 mg tablet,sreekanth yed release TAKE 1 TABLET BY MOUTH 3 TIMES DAILY 06/08 completed Not Available Not Available Not Available metoprolol succinate ER 25 mg tablet,exte nded release 24 hr 09/05 completed Not Available Not Available Not Available diazepam 10 mg tablet TAKE 1 TABLET BY MOUTH 1 TIME FOR 1 DOSE. TAKE 1 HOUR BEFORE PROCEDURE . 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 2021 active Not Available Not Available Not Avai lable ketorolac 60 mg/2 mL intramuscul ar solution Inject 2 mL by intramusc ular route. 02/19 completed Not Available Not Available Not Available propranolol 20 mg tablet TAKE 1 TABLET BY MOUTH TWICE DAILY. active Not Available Not Available No t Available oxybutynin chloride 5 mg tablet 02/19 completed Not Available Not Available Not Available fluticasone propionate 50 mcg/actuati on nasal spray,suspe nsion INSTILL 1 SPRAY IN EACH NOSTRIL ONCE DAILY. 07/28 completed Not Available Not Available Not Available metformin ER 500 mg tablet,exte nded release 24 hr TAKE 1 TABLET BY MOUTH TWICE DAILY. active Not Available Not Available No t Available clotrimazol e 1 % topical cream APPLY TO THE AFFECTED AND SURROUNDI NG AREAS OF SKIN BY TOPICAL ROUTE 2 TIMES PER DAY IN THE MORNING AND EVENING 11/14 completed Not Available Not Available Not Available dicyclomine 10 mg capsule 10 mg by oral route. 01/11 completed Not Available Not Available Not Available lamotrigine 100 mg tablet Take 1 tablet twice a day by oral route in the morning for 30 days. 09/05 completed Not Available Not Available Not Available Sudafed 30 mg tablet Take 2 tablets every 8 hours by oral route as needed. 01/04 completed Not Available Not Available Not Available glycopyrrol ate 2 mg tablet TAKE 1 TABLET BY MOUTH 2 TIMES DAILY active Not Available Not Available No t Available metoclopram shmuel 10 mg tablet 10 mg by oral route. 03/28 completed Not Available Not Available Not Available amoxicillin 875 mg-potassiu m clavulanate 125 mg tablet Take 1 tablet every 12 hours by oral route for 7 days. 12/09 completed Not Available Not Available Not Available amoxicillin 500 mg-potassiu m clavulanate 125 mg tablet Take 1 tablet twice a day by oral route as directed for 7 days. 03/28 completed Not Available Not Available Not Available Ventolin HFA 90 mcg/actuati on aerosol inhaler Inhale 2 puffs every 4 hours by inhalatio n route as needed. 02/19 completed Not Available Not Available Not Available oxycodone 5 mg tablet TAKE 1 TABLET EVERY 6 HOURS NEEDED FOR SEVERE PAIN 07/28 completed Not Available Not Available Not Available Mucinex 600 mg tablet, extended release Take 1 tablet every 12 hours by oral route for 7 days. 08/27 completed Not Available Not Available Not Available Saline Nasal 0.65 % spray aerosol Take 1 spray twice a day by nasal route as directed. 07/28 completed Not Available Not Available Not Available cyclobenzap rine 5 mg tablet TAKE 1 TABLET 3 TIMES EACH DAY FOR 7 DAYS 07/28 completed Not Available Not Available Not Available rosuvastati n 5 mg tablet 10 mg by oral route. 12/22 completed Not Available Not Available Not Available bupropion HCl XL 300 mg 24 hr tablet, extended release Take 1 tablet every day by oral route in the morning for 30 days. 09/12 completed Not Available Not Available Not Available Glucosamine Chondroitin Maximum Strength 500 mg-400 mg capsule Take 1 capsule every day by oral route. 02/19 completed Not Available Not Available Not Available tadalafil 5 mg tablet Take 1 tablet every day by oral route as needed for 9 days. 2021 active Not Available Not Available Not Avai lable metoprolol tartrate 25 mg tablet TAKE ONE (1) TABLET BY MOUTH TWICE A DAY active Not Available Not Available No t Available hydrocodone 7.5 mg-acetamin ophen 325 mg/15 mL oral solution Take 15 mL every 6-8 hours by oral route as directed. 11/14 completed Not Available Not Available Not Available sildenafil (pulmonary hypertensio n) 20 mg tablet Take 1 tablet every day by oral route as needed. 03/28 completed Not Available Not Available Not Available Zantac take 300 mg twice daily 03/21 completed Not Available Not Available Not Available Aspir-81 take 1 tablet daily 11/14 completed Not Available Not Available Not Available promethazin e take 12.5 mg as needed 03/21 completed Not Available Not Available Not Available Lialda 1.2 gram tablet,sreekanth yed release 09/05 completed Not Available Not Available Not Available oxycodone 10 mg tablet TAKE 1 TABLET BY MOUTH EVERY 8 HOURS active Not Available Not Available No t Available Apriso 0.375 gram capsule,ext ended release 4 g by oral route. 11/14 completed Not Available Not Available Not Available lamotrigine ER 200 mg tablet,exte nded release 24 hr 100 mg by oral route. 09/19 completed Not Available Not Available Not Available mesalamine 400 mg capsule,del ayed release 1600 mg by oral route. 02/14 completed Not Available Not Available Not Available Jardiance 10 mg tablet TAKE 1 TABLET BY MOUTH DAILY. 2022 active Not Available Not Available Not Avai lable mesalamine 400 mg capsule (with delayed release tablets inside) TAKE 4 CAPSULES BY MOUTH ONCE DAILY. active Not Available Not Available No t Available Accu-Chek Guide test strips USE TO TEST ONCE DAILY. active Not Available Not Available No t Available Accu-Chek Guide Me Glucose Meter active Not Available Not Available Not Available Vitals Date Recorded Body height Body mass index (BMI) Body weight Respiratory rate Pain severity - 0-10 verbal numeric rating [Score] - Reported Heart rate Oxygen saturation Systolic And Diastolic Provider Name and Address Organization Details Last Updated DateTime 2 152.4 cm 40 kg/m2 10854.4 4 g 18 /min 0 66 /min 98 % 126/84 mm[Hg] Lita Ko [facility] 2 11:19:02 Date Recorded Body height Body mass index (BMI) Body weight Respiratory rate Heart rate Oxygen saturation Pain severity - 0-10 verbal numeric rating [Score] - Reported Systolic And Diastolic Provider Name and Address Organization Details Last Updated DateTime 2 152.4 cm 39.1 kg/m2 05620.8 7 g 18 /min 65 /min 98 % 4 128/82 mm[Hg] Lita Ko [facility] 2 10:04:47 Date Recorded Body height Body temperature Body mass index (BMI) Body weight Heart rate Oxygen saturation Respiratory rate Pain severity - 0-10 verbal numeric rating [Score] - Reported Systolic And Diastolic Provider Name and Address Organization Details Last Updated DateTime 2 152.4 cm 98.7 [degF] 39.8 kg/m2 04301.8 4 g 59 /min 97 % 18 /min 3 122/68 mm[Hg] Merary Hyman [facility] 2 10:09:39 Date Recorded Body height Body mass index (BMI) Body weight Body temperature Heart rate Oxygen saturation Respiratory rate Pain severity - 0-10 verbal numeric rating [Score] - Reported Systolic And Diastolic Provider Name and Address Organization Details Last Updated DateTime 2 152.4 cm 40.5 kg/m2 83134.7 2 g 98.3 [degF] 74 /min 97 % 17 /min 5 118/70 mm[Hg] Thania Jimenes [place] - [facility] 2 11:20:22 Date Recorded Body height Body mass index (BMI) Body weight Oxygen saturation Respiratory rate Heart rate Body temperature Systolic And Diastolic Provider Name and Address Organization Details Last Updated DateTime 2 152.4 cm 40.4 kg/m2 63885.6 2 g 98 % 17 /min 80 /min 97.8 [degF] 116/68 mm[Hg] Skyla Shanta [place] - [facility] 2 10:38:23 Social History Question Answer Notes LastModified by Atreaon ion Details LastModified Time Tobacco Smoking Status Never Smoker Thania Jimenes [place], [place] - [facility] 08/27/2016 13:29:46 Able To Swim? Yes [email or web address] Information not available 12/02/2016 Do You Have An Advance Directive? No [email or web address] Information not available 12/02/2016 Do You Wear A Helmet When Biking? No [email or web address] Information not available 12/02/2016 Are You Blind Or Do You Have Difficulty Seeing? No [email or web address] Information not available 12/02/2016 What Is Your Level Of Caffeine Consumption? Occasional Information not available 12/02/2016 How Much Tobacco Do You Chew? None [email or web address] Information not available 12/02/2016 Are You Deaf Or Do You Have Serious Difficulty Hearing? No [email or web address] Information not available 12/02/2016 What Type Of Diet Are You Following? DIABETIC [email or web address] Information not available 12/02/2016 Which Illicit Or Recreational Drugs Have You Used? None [email or web address] Information not available 12/02/2016 What Is The Highest Grade Or Level Of School You Have Completed Or The Highest Degree You Have Received? [id number] Information not available 01/20/2018 How Many Days Of Moderate To Strenuous Exercise, Like A Brisk Walk, Did You Do In The Last 7 Days? 0 Information not available 04/23/2020 Swimming/diving Yes [email or web address] Informati on not available 12/02/2016 How Hard Is It For You To Pay For The Very Basics Like Food, Housing, Medical Care, And Heating? [id number] Information not available 01/20/2018 Hard Of Hearing Or Deaf In One Or Both Ears? No Information not available 12/02/2016 Legally Blind In One Or Both Eyes? No [email or web address] Information no t available 12/02/2016 Live Alone Or With Others? With Others [email or web address] Information not available 12/02/2016 What Was The Date Of Your Most Recent Tobacco Screening? 06/28/2022 Information not available 06/28/2022 Do You Use Protection During Sex? Always [email or web address] Information not available 12/02/2016 What Is Your Relationship Status? [email or web address] Information not available 12/02/2016 Seat Belts Used Routinely Yes [email or web address] Information not available 12/02/2016 Are You Sexually Active? Yes [email or web address] Information not available 12/02/2016 Smoke Alarm In Home Yes Information not available 12/02/2016 Are You Passively Exposed To Smoke? No [email or web address] Information no t available 12/02/2016 How Much Tobacco Do You Smoke? No [email or web address] Information not available 12/02/2016 General Stress Level Low [email or web address] Information not available 12/02/2016 Do You Use Sunscreen Routinely? Yes [email or web address] Information not available 12/02/2016 Has Tobacco Cessation Counseling Been Provided? No [email or web address] Information not available 12/02/2016 How Many Years Have You Smoked Tobacco? 0 Information not available 12/02/2016 Do You Have Difficulty Walking Or Climbing Stairs? No [email or web address] Information not available 12/02/2016 Sex: Male Functional Status Question Answer Note LastModified by Organizat ion Details LastModified Time What is your level of alcohol consumption? None [email or web address] Information not available 12/02/2016 Are you currently employed? Yes [email or web address] Information not available 12/02/2016 Are you able to walk independently without assistance or assistive devices? YESWOREST [email or web address] Information not available 12/02/2016 Do you have difficulty doing errands alone? No [email or web address] Information not available 12/02/2016 Are you able to care for yourself independently? Yes [email or web address] Information not available 12/02/2016 Do you have difficulty dressing, bathing, grooming, or toileting? No [email or web address] Information not available 12/02/2016 What is your exercise level? Occasional [email or web address] Information not available 12/02/2016 Mental Status Question Answer Note LastModified by Organizat ion Details LastModified Time Do you feel stressed (tense, restless, nervous, or anxious, or unable to sleep at night)? [id number] Information not available 01/20/2018 Do you have difficulty concentrating, remembering or making decisions? No [email or web address] Information no t available 12/02/2016 Family History Relationship Description Onset Age of this Age Resolved Age Notes LastModified by Organization Details LastModified Time Father Heart disease [email or web address] Not available 2016 11:07:13 Sister Diabetes mellitus [email or web address] Not available 2016 11:07:23 Mother Malignant neoplasm of breast [email or web address] Not available 2016 11:07:32 Medical History Condition Response Coronary Artery Disease N Blood Diseases N Hyperthyroidism N Rheumatoid arthritis N Blood Transfusion N amputation N Colonoscopy Y COPD Y Depression N Pneumonia N Incontinence N Edema N Anxiety Disorder N Obesity N Restless Leg Syndrome N Infertility N Polyps N Carpal Tunnel N Mental Disorder N Acid Reflux (GERD) Y Stroke N Varicosities N Tendonitis N Skin Cancer N Fibromyalgia N Anal Fissure N Irritable Bowel Syndrome N Kidney Disease N Hospitalizations Y Gallstones N Goiter N Acne N Skin Problems N Eating Disorder N Castaneda's Esophagus N Hypertriglyceridemia N MRSA exposure N Constipation N Embolism N Deviated Septum N Tuberculosis N Myocardial Infarction N Asthma Y Vertigo N Pulmonary Embolism N Chronic Ear Infections N Chicken Pox N Von Willebrands Disease N Lung Disease N Defects or Inherited Disease N Developmental or Behavioral Disorders N Difficulty Swallowing N Ovarian Cyst N Anesthesia Complications N Testosterone Deficiency N Meniere's disease N Head Injury/Concussion N Interstitial Cystitis N Congenital Anomalies N Hypoglycemia N Blood clot N Cellulitis N Endometriosis N Fracture N Liver Disease N Panic Disorder N Schizophrenia N Spina Bifida N Parkinson's Disease N STI N Angina N Thyroid Problems N GI Problems N ADD/ADHD N Anemia N Multiple Sclerosis N Lumbago N Psychiatric Illness N Diabetes Y Congestive Heart Failure (CHF) N Hyperlipidemia N Syncope N Abuse/Domestic Violence N Attention Deficient Disorder N Ulcerative colitis N Aneurysm N Bronchitis N Heart Disease N Suicidal Ideation N Pre-Eclampsia N Hypertension Y Pancreatitis N Other N Gout N Atrial Fibrillation N congenital heart disease N Kidney Stones Y Erectile Dysfunction N Skin Lesions N Murmur N Alzheimer's Disease N Migraine Headaches Y Tobacco Abuse N Muscle, Joint, or Bone Problems N Hemorrhoids N Vision or Eye Problems N Arthritis N Cancer N Crohn's Disease N Hypercholesterolemia N Headaches Y Heart Problems N Ear or Hearing Problems N Kidney or Bladder Problems N Vitamin B12 Deficiency N AIDS/HIV N Mitral Valve Disorders N Hepatitis N Thyroid Cancer N Neuropathy N History of DVT N Herniated Disc N Autism Spectrum Disorder (ASD) N Thrombophilias N Breast Cancer N Hernia N Plantar Fasciitis N Hospital Admission Other Than N Hypothyroidism N Breast Problem N Vitamin D Deficiency N Bladder or Kidney Problems N Concussion N Allergies/Hayfever N Osteoarthritis N Disc Protrusion N Esophagitis N Abnormal PAP N Mental Illness N Ovarian Cancer N Bedwetting N Degenerative Disc Disease N Seizures/Epilepsy N Insomnia N Eczema N Diverticulitis N Dementia N Cerebrovascular Disease N Depression N Guillain-Erwin N Sleep Apnea N Osteoporosis N Immunizations Vaccine Type Date Status Note Provider Name and Address Organization Details Recorded Time Tdap 10/09/19 20 cancelled patient objection ANGELINA Stewart [facility] 10/09/2019 08:49:31 pneumococcal polysaccharide PPV23 10/09/19 cancelled patient objection ANGELINA Stewart [facility] 10/09/2019 08:49:31 zoster recombinant 10/09/19 cancelled patient objection ANGELINA Stewart [facility] 10/09/2019 08:49:31 Past Encounters Encounter ID Performer Location Encounter Start Date Encounter Closed Date Diagnosis/Indication Diagnosis SNOMED-CT Code Diagnosis ICD10 Code Diagnosis IMO Codes Diagnosis Note [id number] BELLE Enriquez [facility] [address] ANGELINA Perera [id number] 08/27/2016 13:08:39 08/27/2016 14:19:04 Upper respiratory infection 22965325 J06.9 Acute sinusitis 89616568 J01.90 Osteoarthritis 502357296 M19.90 Dyspnea 072518793 R06.02 [id number] BELLE Enriquezb [place] [id number] [address] [facility], [place] [id number] 09/02/2016 08:21:09 09/02/2016 10:38:00 Essential hypertension 24688635 I10 Weight gain 3040049 R63. 5 [id number] Marisol Hidalgo APRN [place] [address] [place], [place] [address] 09/23/2016 13:47:49 09/23/2016 14:51:40 Chest pain 80795253 R07.9 Dyspnea 694683737 R06.02 Fatigue 40239687 R53.83 [id number] Marisol RaygozaeySTACIAN [place] [address] [address] [place], [place] [address] 1 10/07/2016 07:56:27 10/07/2016 10:41:00 Essential hypertension 59275757 I10 Serum chol esterol outside reference range 8402741305 9104 R79.89 [id number] Marisol Hidalgo APRN [place] [address] [address] [place], [place] [address] 1 10/15/2016 08:53:28 10/15/2016 09:44:25 Muscle pain 87650974 M79.1 [id number] Marisol Hidalgo APRN [place] [address] [address] [place], [place] [address] 1 10/22/2016 08:03:23 10/22/2016 10:27:33 Muscle pain 00265996 M79.1 Dizziness 086598814 R42 Diabetes mellitus 393351 09 E11.9 Hyperglycemia 80177383 R 73.9 [id number] Marisol RaygozaeySTACIAN [place] [address] [address] [place], [place] [address] 1 10/29/2016 08:01:03 10/29/2016 08:55:32 Malaise and fatigue 946551374 R53.81 [id number] Marisol Gwen BELLE [place] [address] [address] [place], [place] [address] 1 11/04/2016 10:01:22 11/04/2016 14:41:53 Atypical chest pain 939494338 R07.89 [id number] Marisol Hidalgo APRN [place] [address] [place], [place] [address] 1 11/12/2016 08:11:05 11/12/2016 09:46:07 Gastroesophageal reflux disease 056613586 K21.9 Epigastric pain 65822374 R10.13 [id number] Marisol Hidalgo APRN [place] [address] [place], [place] [address] 1 11/23/2016 09:04:36 11/23/2016 09:58:46 Bronchitis 64979048 J40 [id number] Marisol Hidalgo APRN [place] [address] [place], [place] [address] 1 12/09/2016 15:56:28 12/09/2016 16:48:36 Body mass index 40+ - severely obese 243919353 Z68.42 Fatigue 30137963 R53.83 Sleep apnea 77833080 G47 .30 [id number] Marisol Hidalgo APRN [place] [address] [place], [place] [address] 1 03/21/2017 10:39:26 03/21/2017 12:43:21 Essential hypertension 15546642 I10 Osteoarthritis 750179327 M19.90 Myalgia/my ositis - multiple 188621487 M79.1 Renewal of prescription 764420185 Z76.0 [id number] Marisol Hidalgo APRN [place] [address] [place], [place] [address] 1 07/18/2017 14:46:53 07/18/2017 16:46:28 Long-term drug therapy 490722110 Z79.899 Persistent testicular pain 968857776 N50.89 [id number] Marisol Hidalgo APRN [place] [address] [address] knight Darius [place], [place] [address] 1 08/18/2017 13:28:11 08/18/2017 17:04:59 Tremor 59284948 R25.1 Tinea pedis 8166363 B35. 3 [id number] Ar Ryan APRN [facility] [address] [place] [address] 08/24/2017 10:51:31 08/24/2017 12:50:48 Body mass index 40+ - severely obese 041595888 Z68.41 Fever 618770256 R50.9 [id number] Marisol Hiadlgo APRN [facility] [address] [place] OR[place] [facility] [place] [address] 09/05/2017 14:58:23 09/05/2017 16:31:33 Bipolar disorder 85163466 F31.9 Patient to be evaluated by mary CHRISTIANSON immediatly after this appointmen denton duncan by case managers. [id number] Marisol Hidalgo APRN Robert[facility] [address] eugene Darius DIANA [facility] [place] [address] 09/12/2017 09:20:13 09/12/2017 10:48:41 Diabetes mellitus 79495178 E11.9 Hyperlipidemia 35155167 E78.5 [id number] Marisol [facility]idalgo [facility]N [facility] [address] [facility] Darius ORTIZ [facility] [place] [address] 1 09/27/2017 14:55:46 09/27/2017 16:27:56 Renewal of prescription 711575616 Z76.0 [id number] Marisol Hidalgo APRN [facility] [address] Darius DIANA [facility] [place] [address] 1 11/14/2017 16:48:02 11/14/2017 17:57:38 Osteoarthritis 337740705 M19.90 [id number] Marisol Hidalgo APRN [facility] [address] [facility] [place] ORTIZ [facility] [place] [address] 12/02/2017 10:20:16 12/02/2017 11:24:13 Pain in right lower limb 885550061 M79.604 Osteoarthritis 344993377 M19.90 [id number] Marisol Hidalgo APRN [place] [address] [address] [place], [place] [address] 01/06/2018 11:18:36 01/06/2018 11:57:50 Osteoarthritis 506030296 M19.90 Arthritis 0723310 M19.90 [id number] Richard Antony MD [place] [address] [place] [place], [place] [address] 01/20/2018 14:36:26 01/20/2018 16:02:59 Low back pain 646233639 M54.5 [id number] Marisol ArenaSTACIAN [place] [address] Nicole ORTIZ [facility] [place] [address] 1 01/24/2018 10:48:27 01/24/2018 11:37:19 Lumbar radiculopathy 980779531 M54.16 seek urgent care if symptoms worsen [id number] Marisol ArenaSTACIAN [place] [address] [address] ORTIZ [facility] [place] [address] 01/31/2018 09:55:14 01/31/2018 11:11:22 Spinal stenosis of lumbar region 21849581 M48.640 [id number] Marisol RaygozaeySTACIAN [place] [address] [address] ORTIZ [facility] [place] [address] 1 02/17/2018 14:31:44 02/17/2018 16:33:37 Myalgia/myositis - multiple 243656374 M79.1 [id number] Marisolmarie Hidalgo APRN [place] [address] [address] knight Darius [place], [place] [address] 1 03/13/2018 15:05:58 03/13/2018 15:57:20 Hip joint painful on movement 958790827 M25.559 Anti-nucle ar factor detected 420410743 R76.8 [id number] Marisol Hidalgo APRN [place] [address] [address] knight Darius DIANA [facility] [place] [address] 04/13/2018 17:07:30 04/13/2018 18:17:29 Pain of joint 10347674 M25.50 Myalgia/my ositis - multiple 831257605 M79.1 [id number] Marisol Hidalgo APRN [place] [address] [place] [address] 05/09/2018 13:44:24 05/09/2018 15:00:56 Fibromyalgia 456178795 M79.7 Long-term drug therapy 437627232 Z79.899 Essential hypertension 07124385 I10 [id number] Marisol Hidalgo APRN [place] [address] [place] [address] 1 05/23/2018 16:47:51 05/23/2018 17:37:56 Influenza-like symptoms 601117633 R68.89 Upper resp iratory infection 79864985 J06.9 [id number] Marisol Hidalgo APRN [place] [address] [address] [place] [address] 1 06/16/2018 07:46:51 06/16/2018 08:50:18 Multiple skin tags 743824923 L91.8 History of calculus of kidney 773081630 Z87.536 [id number] Marisol Hidalgo APRN [place] [address] [address] [place] [address] 1 07/07/2018 10:53:32 07/07/2018 11:50:38 Essential hypertension 35578152 I10 Arthritis 0890692 M19.90 Osteoarthritis 648217799 M19.90 Skin tag 476052669 L91.8 Acute sinusitis 24279188 J01.90 [id number] Marisol Hidalgo APRN [place] [address] [address] [place] [address] 1 07/21/2018 10:54:42 07/21/2018 11:54:57 Disorder of inner ear 757625937 H83.93 Pain of joint 13369314 M 25.50 [id number] Mine Cowan APRN [place] [address] [address] [place] [address] 08/11/2018 09:46:10 08/11/2018 10:15:22 Acute otitis media 4643447 H66.92 [id number] Marisol Hidalgo APRN [place] [address] [place] [address] 1 08/15/2018 16:40:15 08/15/2018 17:48:36 Multiple skin tags 849063380 L91.8 [id number] Marisol Hidalgo APRN [place] [address] Fiona eugene ORTIZ [facility] [place] [address] 1 08/21/2018 14:15:53 08/21/2018 15:56:13 Otalgia 03887508 H92.03 [id number] Marisol Hidalgo APRN [place] [address] [facility] Darius D[place] [facility] [place] [address] 1 10/05/2018 14:10:31 10/05/2018 15:58:25 Low back pain 205152892 M54.5 [facility] 24092880 R 73.9 [id number] Ar RyanSTACIAN [place] [address] [facility] [place] Darius D[place] [facility] [place] [address] 1 10/11/2018 14:53:27 10/11/2018 15:43:19 Acute pharyngitis 888429810 J02.9 Chronic low back pain 27 1136101 M54.5 [id number] Marisol Gwen BELLE [place] [address] [facility] [place] Darius D[place] [facility] [place] [address] 1 10/17/2018 15:42:03 10/17/2018 16:48:53 Myalgia/myositis - multiple 110364728 M79.10 [id number] Marisol Gwen BELLE [place] [address] Fiona eugene Darius DIANA [facility] [place] [address] 01/04/2019 16:07:39 01/04/2019 17:44:06 Low back pain 605482933 M54.5 [id number] Marisol Hidalgo APRN [place] [address] [address] [place]ugene Darius [place] [address] 01/11/2019 14:03:25 01/11/2019 16:09:10 Sinus headache 9201406 R51 [id number] Marisol Hidalgo APRN [facility] [address] [place] [address] 01/12/2019 10:10:31 01/12/2019 11:27:03 Acute bronchitis 49016993 J20.9 Acute pharyngitis 764869 003 J02.9 Bronchitis 77497559 J40 [id number] Mine Cowan APRN [facility] [address] [place] [address] 1 02/19/2019 11:02:50 02/19/2019 11:56:20 Low back pain 912725548 M54.5 Paresthesi a of lower extremity 251506077 R20.2 Degenerati on of lumbar intervertebral disc 74390447 M51.36 Pain of ri ght hip joint 0331975926 25922 M25.551 Myalgia/my ositis - multiple 314490670 M79.10 [id number] Marisol Hidalgo APRN [facility] [address] [place] [address] 1 07/17/2019 11:10:39 07/17/2019 11:54:43 Pharyngitis 388279293 J02.9 Cough 72030546 R05 Long-term drug therapy 190447472 Z79.899 Body mass index 40+ - severely obese 011465723 Z68.41 Bipolar disorder 7114202 4 F31.9 Diabetes mellitus 237550 09 E11.9 [id number] Marisol Hidalgo APRN [facility] [address] [place] [address] 08/23/2019 08:55:25 08/23/2019 10:13:15 Pre-surgery evaluation 254086081 Z01.818 no contraindi cations [id number] Marisol Hidalgo APRN [facility] [address] [place] [facility] [place] [address] 09/06/2019 09:41:59 09/06/2019 11:32:29 Prostatitis 1556754 N41.9 [id number] BELLE En[facility] [address] [place] [address] 1 10/09/2019 07:52:41 10/09/2019 09:26:38 Adult health examination 139514281 Z00.00 Depression screening 171 802735 Z13.89 Examinatio n of blood pressure 346204445 Z01.30 Diet education 87486682 Z71.3 Counseling 816079711 Z71 .82 Exercise counseling . Patient encouraged to exercise 30 minutes 5 days a week. At [facility] ed risk for falls 019575276 Z91.81 STEADI FAST screening score of . Advance care planning 71 3222778 Z71.89 Finding of body mass index 450067290 Z68.41 Hepatitis C screening 41 2172749 Z11.59 Active or passive immunization 607424344 Z23 Abdominal pain 65432276 R10.9 Essential hypertension 44397762 I10 Non-diabet ic hyperglycemia 720715946 R73.9 Patient is not diabetic. He is on Metformin due to hyperglyce kiet r/t side effects of bipolar medication Acute urin linnette tract infection 739092922 N39.0 rtc if symptoms worsen. follow up with urolgy as planned [id number] BELLE En[facility] [address] [place] [address] 11/27/2019 08:10:48 11/27/2019 10:20:46 Neuropathy 873868224 G62.9 Decreased sexual function 526342886 F52.9 [id number] BLELE En[facility] [address] [place] [address] 1 11/29/2019 09:13:58 11/29/2019 09:44:41 Upper respiratory infection 34734655 J06.9 Acute pharyngitis 174249 003 J02.9 Nausea 677252270 R11.0 [id number] BELLE En[facility] [address] [place] [address] 1 02/29/2020 14:34:21 02/29/2020 16:00:58 Dehydration 84178424 E86.0 Pruritic rash 74605261 L 28.2 [id number] Marisol Hidalgo SKIVER OPERATOR [place] [address] [place] [address] 03/10/2020 08:24:06 03/10/2020 09:41:50 Viral screening 051574711 Z11.59 Acute bronchitis 0564201 2 J20.9 [id number] Marisol Hidalgo APRN [place] [address] [place] [address] 1 03/20/2020 08:40:28 03/20/2020 08:40:53 Cough 08577622 R05 SARS-CoV-2 755347147 U07 .1 [id number] Marisol Hidalgo APRN [place] [address] [place] [address] 03/28/2020 08:11:39 03/28/2020 08:59:08 Hyperlipidemia 00297339 E78.5 Essential hypertension 28903316 I10 Prediabetes 842173913 R7 3.03 Decreased sexual function 288295604 F52.9 [id number] Marisol Hidalgo APRN [place] [address] [place] [address] 1 04/15/2020 14:38:19 04/15/2020 16:12:02 Hyperlipidemia 05355662 E78.5 possible side effects of med discussed rtc in one month to repeat CMP [id number] [facility] [place] [address] [place] [address] 04/23/2020 10:48:29 04/23/2020 11:20:24 Neoplasm of uncertain behavior of skin 34781245 D48.5 [id number] Richard Ort[place] [address] [place] [address] 1 04/30/2020 08:36:18 04/30/2020 09:14:08 Removal of suture 75819473 Z48.02 Lichen planus 6213028 L4 3.9 [id number] Marisol Hidalgo APRN [place] [address] [place] [address] 1 05/02/2020 08:04:30 05/02/2020 10:46:48 Exposure to SARS-CoV-2 782637769 Z20.828 Acute bronchitis 5733106 2 J20.9 [id number] Marisol Hidalgo APRN [place] [address] [place] [address] 1 05/20/2020 10:12:19 05/20/2020 11:11:54 Liver enzymes level above reference range 141508783 R74.01 will call with results [id number] Marisol Hidalgo APRN [place] [address] [place] [address] 1 06/05/2020 11:20:07 06/05/2020 11:56:48 Migraine 06081917 G43.909 Abdominal pain 18064464 R10.9 [id number] Marisol Hidalgo APRN [place] [address] [place] [address] 1 06/19/2020 10:44:07 06/19/2020 11:29:37 Dysuria 48135449 R30.9 Glycosuria 11707818 R81 Eruption 292539174 R21 [id number] Marisol Hidalgo APRN [place] [address] [place] [address] 1 08/14/2020 10:28:05 08/14/2020 11:57:46 Essential hypertension 58438072 I10 well controlled with medication Hyperlipidemia 37754345 E78.5 well controlled with medication Pain of le ft shoulder joint 4118975781 5832290 M25.512 will call with results and evaluate Upper resp iratory infection 39228132 J06.9 rtc as needed Skin lesion 99592248 L98 .9 per patient, noted for years [id number] [place] [address] [place] [address] 08/27/2020 10:37:50 08/27/2020 12:41:17 Sebaceous hyperplasia 385641378 L21.8 offered reassuranc e Senile hyperkeratosis 39 6943595 L82.1 offered reassuranc e Skin tag 356649358 L91.8 cryo applied [id number] BELLE En[place] [address] Fionaeduardo eugene Darius [place] [address] 1 09/16/2020 08:18:15 09/16/2020 09:50:20 Neuropathy 792543293 G62.9 Feeling of lump in throat 544636926 F45.8 [id number] BELLE Enri[place] [address] Fionaeduardo eugene Darius [place] [address] 09/30/2020 09:26:04 09/30/2020 11:14:42 Acute tonsillitis 89360688 J03.90 chronic issues. abx give some relief. 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 will call with results Herpes zoster 0639221 B0 2.9 no rash of shingles noted, but states painful. rtc in 5 days or sooner if pain does not resolve [id number] BELLE Enri[place] [address] [address] Darius [place], [place] [address] 01/22/2021 13:11:32 01/22/2021 14:05:26 Paresthesia of upper limb 05409504 R20.2 will call with results. rtc if symptoms worsen or persist [id number] BELLE Mc[place] [address] [place] [address] 01/30/2021 11:17:35 01/30/2021 12:02:39 Neuropathy 001201580 G62.9 chronic/wo rsening Degenerati on of cervical intervertebral disc 96739973 M50.30 worsening, chronic Weakness of left arm 098 2824289 5723776 G83.20 chronic [id number] BELLE En[place] [address] [place] [address] 02/17/2021 09:28:09 02/17/2021 10:33:16 Fatigue 47354108 R53.83 worsening. follow up in two weeks [id number] BELLE Enri[place] [address] [address] Darius D[place] [facility] [place] [address] 02/19/2021 16:08:29 02/19/2021 16:59:32 Viral screening 670745836 Z11.59 [id number] BELLE Enriquezchristophjefferson [place] [address] [address] D[place], [place] [address] 03/12/2021 17:07:45 03/12/2021 18:05:20 Fatigue 85981951 R53.83 requests screening due chronic fatigue [id number] BELLE Mcn[place] [address] [address] Darius D[place] [facility] [place] [address] 06/08/2021 13:09:36 06/08/2021 14:39:36 Chronic pain 23348063 G89.29 worsening, meds changed today, f.u in 2-3 weeks [id number] BELLE Fost[facility] [address] [place] [address] 07/28/2021 14:23:28 07/28/2021 14:51:11 Diabetes mellitus 65492344 E11.9 New onset. HgbA1C 7.0 [id number] BELLE Foster [facility] [address] [place] [address] 10/26/2021 12:48:37 10/26/2021 13:36:24 General examination of patient 006375763 Z00.00 Patient is a healthy 61 yo male. Hyperlipid emia screening 077530811 Z13.220 Screening for malignant neoplasm of prostate 696385189 Z12.5 Exercises education, guidance, and counseling 537430705 Z71.82 Discussed getting 30 minutes of cardiovasc ular exercise daily. Dietary ma nagement surveillance 228355701 Z71.3 Discussed intake of well rounded diet including fruits, vegetables , lean meats, and whole grains. Diabetes mellitus 449111 09 E11.9 07/28 HgbA1C 7.0Patient returning in AM fasting for [id number] ided patient with diabetes education. Discussed how to monitor blood sugar at home. Patient reports understand ing.Patien t reports significan t diarrhea that is effecting his compliance with Metformin. Discontinu ed Metformin. Discussed medication options with patient. Starting patient on Jardiance. Discussed potential side effects of medication . Advised patient to stay well hydrated. Screening for malignant neoplasm of colon 589027896 Z12.11 Patient reports a chronic feeling of fullness despite having metformin induced diarrhea. Patient would like referral to new gastroente rologist for colonoscop y. Serous otitis media 8032 7007 H65.92 Advised patient to start flonase daily. [id number] [place] BELLE Antony [facility] [address] [place], [place] [address] 12/16/2021 10:45:26 12/16/2021 11:17:21 Neuropathy 132468700 G62.9 Chronic-st able Essential hypertension 26973182 I10 Chronic-st ableBP today is 122/76 Long-term current use of drug therapy 030129856 Z79.298 [id number] BELLE Foster richard [facility] [address]ugene Darius PALACIOSCOURTNEY [place], [place] [address] 01/11/2022 11:13:27 01/11/2022 12:00:23 Essential hypertension 73096452 I10 Chronic-st ableBP today is 126/84 Drug-induc ed hyperglycemia 667766891 R73.9 Chronic-st able Pre-surger y evaluation 238857940 Z01.818 Patient is cleared for right total hip replacemen t.Patient has seen by cardiology 2017 and nothing of significan ce was found. Patient is not having chest pain or discomfort . EKG is unchanged from last EKG in 2017. Erectile dysfunction 860 250974 F52.21 Patient reports difficulty maintainin g an erection. Patient reports he tried sildenafil in the past without improvemen t in symptoms.S tarting tadalafil PRN. Discussed potential adverse effects. Follow up as needed. [id number] BELLE Foster [facility] [address] Darius D[place] [facility] [place] [address] 02/18/2022 09:54:32 02/18/2022 10:27:37 Neuropathy 758494246 G62.9 ChronicPat ieserjio reports intermitte nt neuropathy in his left axilla. Patient reports he has had this issue in the past and it resolved on its own. Patient does report chronic neck issues with a pinched nerve .Francie anderson is currently participat ing in PT and OT following a right total hip replacemen t 3 weeks ago. Discussed continued stretching and potential for increasing gabapentin if symptoms persist. Patient does not want to treat the issue at this time, he believes it will resolve in its own, as it has in the past.Follo w up in 2-3 weeks. [id number] BELLE Foster richard [facility] [address]ionaedu[address] [place]ACIOSCOURTNEY [place], [place] [address] 03/02/2022 09:24:10 03/02/2022 10:27:59 Contact dermatitis 72672071 L25.9 right footPatien t denies itching, pain, or spreadingF ollow up in 1-2 weeks if rash persists Ingrowing toenail 789744 009 L60.0 [id number] [place] BELLE Antony [facility] [address] [place] [address] 03/18/2022 11:10:58 03/18/2022 12:20:59 Neuropathy 762249917 G62.9 ChronicPat ient reports that his neuropathy has been worsening over the last several months. Increased dosage from 400mg TID to 600mg TID, patient has been on this dosage of gabapentin in the past with no reported adverse effects.EK ASPER appropriat e 03/18/22Con trolled substance agreement signed 12/16/21UDS 03/18/22: as expectedFo llow up in 2-3 weeks. Dysuria 18872964 R30.9 Patient reports dysuria without urinary frequency, urgency, or hesitancy Long-term drug therapy 870000093 Z79.899 Hyperglycemia 05218141 R 73.9 Right flank pain 9938411 09 R10.9 Mild right flank pain and mild right testicular discomfort which patient reports is worse during intercours e. Patient denies new partners or any drainage/r sina to his groin area. Patient declined STI testing at this time.Histo ry of kidney stonesUA showed evidence of glucosuria but no nitrites, leukocytes , or blood.No fever, nausea, vomiting, or hematuriaD iscussed when to report to ER.Follow up based on lab results. [id number] BELLE Fost[facility]veliakatelynn [facility] [address] [place] [address] 06/28/2022 10:22:19 06/28/2022 11:21:06 Adult health examination 634505241 Z00.00 Patient is a chronicall y ill 62 yo male. Depression screening 171 866490 Z13.89 PHQ : 11 Diet education 22697456 Z71.3 Discussed low saturated fat diet including fruits, vegetables , and whole grains. Counseling 907542922 Z71 .82 Exercise counseling . Patient encouraged to exercise 30 minutes 5 days a week. At [facility] risk for falls 078210700 Z91.81 STEADI FAST screening score of ___9__. Advance care planning 71 2502425 Z71.89 Finding of body mass index 142086288 Z68.41 40.4 Essential hypertension 27433162 I10 Chronic-st ableBP today is 116/68 Neuropathy 207036853 G62 .9 Chronic-st ableEKASPE R appropriat e 06/28/22Co ntrolled substance agreement signed 12/16/21UDS 06/28/22: as expectedFo llow up in 4-6 months Drug-induc ed hyperglycemia 448032510 R73.9 Chronic-st able Benign pro static hyperplasia 248882189 N40.1 Chronic-st able Vitamin D deficiency 347 39083 E55.9 New onsetFollo w up in 3-6 months Hyperlipidemia 82520085 E78.5 Patient declined to start statin medication .Discussed heart healthy diet changes. Patient expressed understand ing. Acute bila teral otitis media 001111079 H66.93 Follow up in 1 week if symptoms persist. Long-term current use of drug therapy 083472154 Z79.899 Health Concerns Section Related Observation LastModified by Organization Detai ls LastModified Time None Recorded Concern Status LastModified by Organization Details LastModified Time None Recorded Advance Directives Directive N: Payers Insurance Date Sequence Insurance Name Policy Number Policy Garcia Covered Member ID Garcia Member ID Guarantor Name 12/24/2022 NGS NATIONAL - MEDICARE [facility]MEDICARE[facility] Elliot Sexton Adolfo [id number] Elliot Mata 03/18/2022 1 [place] Elliot Carlie Adolfo [id number] Elliot Mata 12/24/2022 2 [place] [facility] - FFS/TRADITIONA L Elliot M Adolfo [id number] Elliot Mata 12/24/2022 1 [facility] (MEDICARE REPLACEMENT/AD VANTAGE - PPO) KYDSNP Elliot Carlie Adolfo [id number] Elliot Mata 12/24/2022 1 [place]BS-[place]: [employer] - MEDIBLUE ADVANTAGE (MEDICARE REPLACEMENT HMO) [id number] Elliot Carlie Adolfo [id number] Elliot Mata 12/24/2022 [place] Elliot Mata [id number] Elliot Mata Notes Date Note Type Note Provider Name and Address Organization Details Recorded Time 2 text/html Erectile DysfunctionReported by PatientHPIFor context, patient reportsnever able to maintain a hard erection. For quality, patient reportsloss of function. For severity, patient reportssame. For duration, patient reportsfrequent/every time. For associated symptoms, patient reportsno dysuria,no penile discharge, andnormal libido. Patient is here for a pre-op evalutation for a right hip replacement on 01/[address] Calvillo. Kenya Antony APRN [address], [place], [address], [facility] 01/11/2022 12:54:38 2 text/html Patient is here with reports of neuropathy pain in left arm. Patient reports he had this issue about a year ago but resolved. The issue started again about 3-4 days ago. Kenya Antony APRN [address], [place], [address], [place] [facility] 02/18/2022 10:36:07 2 text/html Skin LesionReported by PatientHPIFor location, patient reportsfeet. For severity, patient reportsmild. For duration, patient reportsnot sure. For context, patient reportsno known trigger. For associated symptoms, patient reportsno fever,no cold symptoms,no nausea,no vomiting,no diarrhea,no urinary symptoms,no skin flakes,no scabbing,no bruising,no draining,no lesions multiplying, andno lesions spreading.ROS as noted in the HPI Kenya Antony APRN [address], [place], [address], [place] [facility] 03/02/2022 11:17:02 2 text/html Patient Elliot Mata, presents today for refills on gabapentin. Patient also has complaints of dysuria, right flank pain and testicular pain.States this started about 2-3 days ago. Patient has a history of kidney stones. Kenya Antony APRN [address], [place], [address], [place] [facility] 03/18/2022 12:46:55 2 text/html Medicare Annual Wellness VisitReported by PatientSocial/Behavioral HistoryFor fracture risk, patient reportshistory of fracturesandprevious musculoskeletal injuriesbut reportsno recent explained fractureandno sudden unexplained fractures. For diet and nutrition, patient reportshealthy diet,discussed vitamin and supplement use,discussed portion control,discussed maintaining calcium balance, anddiscussed diet improvement. For physical activity, patient reportsexercises on a regular basis,recent increase in physical activity,good physical condition,discussed weightbearing activities, anddiscussed exercise habits(walks daily).Mental Status:For depression risk, patient reportsfeels sad, empty, or tearful,sleep disturbances or insomnia,feelings of worthlessness or guilt, andhistory of depressionbut reportsno loss of interest in activities,no significant changes in weight,no agitation,no loss of energy,no thoughts of suicide, andno history of mood disorders. For orientation, patient reportsno disorientation to time,no disorientation to date, andno disorientation to place. For concentration and memory, patient reportsno decreased concentrating ability,no memory lapses or loss, anddoes not forget words. For speech/motor difficulties, patient reportsno speech difficulties,no difficulty expressing formulated concepts,no difficulty with fine manipulative tasks,no difficulty writing/copying,no slowed reaction time, anddoes not knock things over when trying to pick them up.Functional AbilityFor hearing, patient reportsno loss of hearing. For vision, patient reportsno vision problems. For activities of daily living, patient reportsable to bathe with limited or no assistance,able to contol urination and bowels,able to dress with limited or no assistance,able to feed self with limited or no assistance,able to get out of chair or bed with limited or no assistance,able to groom with limited or no assistance, andable to toilet with limited or no assistance. For instrumental activities of daily living, patient reportsable to do house work with limited or no assistance,able to grocery shop with limited or no assistance,able to manage medications with limited or no assistance,able to manage money with limited or no assistance,able to prepare meals with limited or no assistance, andable to use the phone with limited or no assistance. For falls risk assessment, patient reportsfall(s) in the past year 6andfall(s) since last visit3. For home safety, patient reportsno unsafe manuel hazzards,no unsafe stairs,no unsafe gas appliances,working smoke/co detectors,wears protective head gear for biking/high velocity,use of seatbelts,practicing 'safer sex',no vision or hearing loss while driving,no fire arms,has hand bars in the bathroom/shower,good lighting in the home,reviewed sun protection, andnumber of motor vehicle accidents 0. For current level of pain, patient reportsno pain: 0/10. Kenya Antony, SKIVER OPERATOR [address], [place], [address], [facility] 06/28/2022 11:46:11
--- OUTSIDE RECORDS SUMMARY | 2025-07-07 11:06 | XMS_ITS | Encounter Summary ---
Author Organization Healthcare Address [address] [place] [address] Care Team Providers Care Icu Nurse Name Role Phone Marisol Hidalgo APRN Primary Care Provider [phone] Asael Bolden MD Unavailable [phone] Anup Ronquillo MD Unavailable [phone] Kenya Antony APRN Primary Care Provider [phone] Consuelo Segundo APRN Primary Care Provider + [phone] Encounter Details Date Type Department Care Team (Late st Contact Info) Description 01/23/2021 Orders Only External Location [address] [place] [address] Marisol Hidalgo APRN [address] [place] [address] Social History Tobacco Use Types Packs/Day [...] Description 07/24/2025 1:00 PM EST Office Visit [facility] Interventional Pain Medicine [address] [place] [address] Richard Taylor MD [address] [facility] [address] [place] [address] documented as of this encounter Procedures Procedure Name Priority Date/Time Associated Diagnosis Comments XR OUTSIDE IMAGES 01/23/2021 1:03 PM EDT documented in this encounter Results * XR OUTSIDE IMAGES (01/23/2021 1:03 PM EDT) Anatomical Region Laterality Modality Radiographic Isabella ging 01/23/2021 1:03 PM EDT Marisol Hidalgo BUSINESS SERVICES INTERN IMG XR PROCEDURES Final Res ult documented in this encounter Visit Diagnoses Not on filedocumented in this encounter Care Teams Icu Nurse Relationship Specialty Start Date End Date Marisol Hidalgo APRN [address] [place] [address] PCP - General 12/19/20 11/26/21 Kenya Antony APRN [address] [place] [address] PCP - General 11/27/21 07/10/23 Consuelo Segundo APRN [address] [place], [place] [id number] PCP - General 07/11/23 Asael Bolden MD [address] [place] [address] Surgeon Neurosurgery 03/16/21 Anup Ronquillo MD [address] [place] [address] Consulting Physician Neurology 10/19/21 documented as of this encounter
--- OUTSIDE RECORDS SUMMARY | 2025-07-07 11:06 | XMS_ITS | Encounter Summary ---
Author Organization [employer] ([place], [place], [place], [place], [place]) Address [address] [place] [address] Care Team Providers Care Railroad Wheels And Axle Inspector Name Role Phone Salomón Frausto PA-C Unavailable [phone] Edson Miller MD Primary Care Provider + [phone] Consuelo Segundo APRN Primary Care Provider [phone] Encounter Details Date Type Department Care Team (Late st Contact Info) Description 12/05/2020 Transcribed Document [facility] Family Medicine [address] [place] [address] ProviderGaurang MD [address] [place] [address] Social History Tobacco Use Types [...] 1960 Associated Diagnoses: None Author: BENNIE SOTOMAYOR MD-[facility] Subjective Chief complaint. no headache better today no vomting Health Status Allergies: Allergic Reactions (Selected) Severity Not Documented Asmanex HFA- No reactions were documented. Atorvastatin- No reactions were documented. LevoFLOXacin- No reactions were documented. [place]- No reactions were documented. Montelukast- No reactions [...] Refill(s) fluticasone 50 mcg/inh nasal spray: 1 [place], Nasal, Daily, 16 Gram, 0 Refill(s) gabapentin [...] Bedtime fluticasone 50 mcg/inh nasal spray 1 [place], Nasal, Daily gabapentin 300 mg oral capsule [...] At risk for sleep apnea / IMO [id number] / Confirmed, Active Problems (9) Anxiety Arthritis At risk for sleep apnea Bipolar depression Gastroparesis GERD (gastroesophageal reflux disease) HTN (hypertension) Irritable bowel Nerve pain Objective VS/Measurements Vitals Signs (last 24 hrs) Last Charted Minimum Maximum Temp 97.9 (DEC 05:) 97.9 (DEC 05:00) 98 (DEC 05 06:05) Mon HR 58 [...] with a board 3 separate times (left alevism, back of head, forehead) 4 days ago [...] PPI Morbid Obesity -BMI 36 with comorbidities -Heavy Coil Winder consulted Plan Neurology following Home today d/w patient and RN time spent 40 min documented in this encounter Plan of Treatment Not on file documented as of this encounter Visit Diagnoses Not on filedocumented in this encounter Care Teams Railroad Wheels And Axle Inspector Relationship Specialty Start Date End Date Edson Miller MD [address] [place] [address] PCP - General Internal Medicine/Pediatrics 07/21/22 07/11/24 Consuelo Segundo, BELLE [address] [address] PCP - General Family Medicine 07/12/24 Salomón Frausto PA-C [address] [place] [address] Orthopedist Physician Public Health Internship 05/07/22 documented as of this encounter
--- OUTSIDE RECORDS SUMMARY | 2025-07-07 11:06 | XMS_ITS | Encounter Summary ---
Author Organization [employer] ([place], [place], [place], [place], [place]) Address [address] [place] [address] Care Team Providers Care Cocoa Bean Roaster Helper Name Role Phone Salomón Frausto PA-C Unavailable [phone] Edson Miller MD Primary Care Provider [phone] Consuelo Segundo APRN Primary Care Provider +- [phone] Encounter Details Date Type Department Care Team (Late st Contact Info) Description 12/04/2020 Transcribed Document [facility] [address] [place] [address] Provider, Lucas Merlos MD Social History Tobacco Use Types Packs/Day Years Used Date Smoking Tobacco: Never Assessed Sex and Gender Information Value Date Recorded Sex Assigned at Not on file Legal Sex Male 5:16 PM CDT Gender Identity Not on file Sexual Orientation Not on file documented as of this encounter Miscellaneous Notes * Cerner Conversion Note - [facility] Gaurang ProviderMD - 12/04/2020 4:24 PM EDT Treatment Intervention, OT Entered On: 12/05/2020 11:23 EDT Performed On: 12/05/2020 11:16 EDT by LATESHA DELUCA, RANJANAR/L General Information, OT Visit Type, OT : [...] LATESHA DELUCA OTR/L - 12/05/2020 11:16 EDT English Lecturer Goals, OT Grooming LTG Grid Goal #1 [...] Date Met : 12/05/2020 EDT LATESHA DELUCA OTR/Patricia - 12/05/2020 11:16 EDT Treatment Note Subjective [...] Pt states he received pain meds this a.m. LATESHA DELUCA OTR/L - 12/05/2020 11:16 EDT Image 1 - Images currently included in the form version of this document have not been included in the text rendition version of the form. Anticipated Discharge Needs, OT/PT Anticipated Discharge to : Home, independently LATESHA DELUCA OTR/L - 12/05/2020 11:[address] [place] OT Charges OT Ther Activities Ea 15 Min : 1 LATESHA DELUCA OTR/L - 12/05/2020 11:16 EDT documented in this encounter Plan of Treatment Not on file documented as of this encounter Visit Diagnoses Not on filedocumented in this encounter Care Teams Cocoa Bean Roaster Helper Relationship Specialty Start Date End Date Edson Miller MD [address] [place] [address] PCP - General Internal Medicine/Pediatrics 07/21/22 07/11/24 Consuelo Segundo, MULTIPLE LAUNCH ROCKET SYSTEM CREWMEMBER 209 [facility] [address] [place] [address] PCP - General Family Medicine 07/12/24 Salomón Frausto PA-C [address] [place] [address] Orthopedist Physician Flute Teacher 05/07/22 documented as of this encounter
--- OUTSIDE RECORDS SUMMARY | 2025-07-07 11:06 | XMS_ITS | Encounter Summary ---
Author Organization [employer] ([place], [place], [place], [place], [place]) Address [address] [place] [address] Care Team Providers Care Cam Maker Name Role Phone Salomón Frausto PA-C Unavailable [phone] Edson Miller MD Primary Care Provider [phone] Consuelo Segundo APRN Primary Care Provider [phone] Encounter Details Date Type Department Care Team (Late st Contact Info) Description 12/05/2020 Transcribed Document [facility] [place] [address] [place] [address] ProviderGaurang MD [address] [place] [address] Social History Tobacco Use Types [...] Performed On: 12/05/2020 15:51 EDT by CARLOS HAM PT Discharge Summary Discharge Summary Provider Notified [...] CARLOS HAM, PT - 12/05/2020 15:51 EDT Manager Media Relations Goals Mobility/Bed Mobility LTG PT Grid Goal [...] - 12/05/2020 15:51 EDT Electronically signed by Poonam, [facility] Conversion Gemologist Cerner at 11/26/2022 6:15 PM CDT documented in this encounter Plan of Treatment Not on file documented as of this encounter Visit Diagnoses Not on filedocumented in this encounter Care Teams Cam Maker Relationship Specialty Start Date End Date Edson Miller MD [address] [place] [address] PCP - General Internal Medicine/Pediatrics 07/21/22 07/11/24 Consuelo Segundo, PILOT CAPTAIN [address] [facility] [address] [place] [address] PCP - General Family Medicine 07/12/24 Salomón Frausto PA-Anisha [address] [place] [address] Orthopedist Physician Wire Twister 05/07/22 documented as of this encounter
--- OUTSIDE RECORDS SUMMARY | 2025-07-07 11:06 | XMS_ITS | Encounter Summary ---
Author Organization [employer] ([place], [place], [place], [place], [place]) Address [address] [place] [address] Care Team Providers Care River [place] Lakes Boatman Name Role Phone Salomón Frausto PA-C Unavailable [phone] Edson Miller MD Primary Care Provider + [phone] Consuelo Segundo APRN Primary Care Provider [phone] Encounter Details Date Type Department Care Team (Late st Contact Info) Description 12/04/2020 Transcribed Document [facility] [place] [address] [place] [address] ProviderGaurang MD [address] [place] [address] Social History Tobacco Use Types Packs/Day Years Used Date Smoking Tobacco: Never Assessed Sex and Gender Information Value Date Recorded Sex Assigned at Not on file Legal Sex Male 5:16 PM CDT Gender Identity Not on file Sexual Orientation Not on file documented as of this encounter Miscellaneous Notes * Cerner Conversion Note - Gaurang ProviderMD - 12/04/2020 5:51 AM CDT Patient: [...] with a board 3 separate times (left caodaism, back of head, forehead) 4 days ago [...] PPI Morbid Obesity -BMI 36 with comorbidities -Long Line Teamster consulted DVT: SCD, chemical prophylaxis per primary [...] Status No Code Status Order on Record Electronically signed by Lucas Levin Conversion Acoustic Intelligence Specialist Cerner at 11/26/2022 6:11 PM CDT documented in this encounter Plan of Treatment Not on file documented as of this encounter Visit Diagnoses Not on filedocumented in this encounter Care Teams [place] Boatman Relationship Specialty Start Date End Date Edson Miller MD [address] [place] [address] PCP - General Internal Medicine/Pediatrics 07/21/22 07/11/24 Consuelo Segundo, COMPUTER NETWORK SUPPORT SPECIALIST 209 [facility] [address] [place] [address] PCP - General Family Medicine 07/12/24 Salomón Frausto PA-C [address] [place] [address] Orthopedist Physician Atmospheric Sciences Professor 05/07/22 documented as of this encounter
--- OUTSIDE RECORDS SUMMARY | 2025-07-07 11:06 | XMS_ITS | Encounter Summary ---
Author Organization [employer] ([place], [place], [place], [place], [place]) Address [address] [place] [address] Care Team Providers Care Program Supervisor Name Role Phone Salomón Frausto PA-C Unavailable [phone] Edson Miller MD Primary Care Provider [phone] Consuelo Segundo APRN Primary Care Provider [phone] Encounter Details Date Type Department Care Team (Late st Contact Info) Description 12/05/2020 Transcribed Document [facility] [place] [address] [place] [address] ProviderGaurang MD [address] [place] [address] Social History Tobacco Use Types Packs/Day Years Used Date Smoking Tobacco: Never Assessed Sex and Gender Information Value Date Recorded Sex Assigned at Not on file Legal Sex Male 5:16 PM CDT Gender Identity Not on file Sexual Orientation Not on file documented as of this encounter Miscellaneous Notes * Cerner Conversion Note - Gaurang Tay MD - 12/05/2020 9:37 AM CDT DATE OF DISCHARGE: 12/05/2020 DISCHARGE DIAGNOSES: 1. Recent head trauma with concussion. 2. History of tremors. 3. Gastroparesis. 4. Irritable bowel syndrome. 5. Hypertension. 6. Hyperlipidemia. 7. Benign prostatic hyperplasia. 8. Gastroesophageal reflux disease. 9. Obesity. DISCHARGING INSTRUCTIONS: Diet according to [employer]. Activities, as tolerated. Followup appointment [...] Chart was reviewed. Time spent, 40 minutes. /[id number] MD TONG Scruggs/ALEX / TONG / MODL /[id number] documented in this encounter Plan of Treatment Not on file documented as of this encounter Visit Diagnoses Not on filedocumented in this encounter Care Teams Program Supervisor Relationship Specialty Start Date End Date Edson Miller MD [address] [place] [address] PCP - General Internal Medicine/Pediatrics 07/21/22 07/11/24 Consuelo Segundo, SUPERVISOR PRINTING SHOP 209 [facility] [address] [place] [address] PCP - General Family Medicine 07/12/24 Salomón Frausto PA-C [address] [place] [address] Orthopedist Physician Rehab Technician 05/07/22 documented as of this encounter
--- OUTSIDE RECORDS SUMMARY | 2025-07-07 11:06 | XMS_ITS | Encounter Summary ---
Author Organization [employer] ([place], [place], [place], [place], [place]) Address [address] [place] [address] Care Team Providers Care Top Precipitator Operator Helper Name Role Phone Salomón Frausto PA-C Unavailable [phone] Edson Miller MD Primary Care Provider + [phone] Consuelo Segundo APRN Primary Care Provider [phone] Encounter Details Date Type Department Care Team (Late st Contact Info) Description 12/04/2020 Transcribed Document [facility] [place] Family Medicine [address] [place] [address] ProviderGaurang MD [address] [place] [address] Social History Tobacco Use Types [...] hospital yesterday from the emergency room at [facility] for further evaluation of a headache. I [...] x 4 hit him around the right gnosticist. He says there was no lacerations or loss of consciousness. Later that evening, he started having a headache that began on his right gnosticist, but then radiated out throughout his head. He says over the last 6 days, the headache is there with him almost constantly until he gets a narcotic here at our hospital. He says 2 days ago he went to the emergency room at [facility] and they gave him some pain medicines and released him home. As his headache was continuing, he decided to go to an emergency room at [facility] last night, and a head CT was [...] which he sees an outpatient neurologist in [place], [place], and takes primidone for this. 11. He has bipolar disease which was diagnosed 10 years ago, and he has been on Depakote for the last 3 years for this. 12. Migraines - see above. SOCIAL HISTORY: The patient lives in [place], [place], by himself. He has been and [...] through XII are intact. Coordination shows intact [id number] and [id number]. Gait was not tested. Reflexes were 0 [...] follow up with his outpatient neurologist in [place]. 5. I have told him not to drive or operate heavy machinery until released by physician. 6. We may wish to clarify with the patient what his home dose of Depakote is. Of note, I have spent over an hour on this patient today. Over half of that time was spent reviewing the chart and counseling the patient. I will follow with you. /[id number] MD PINKY Joseph/ALEX / PINKY / MODL /[id number] documented in this encounter Plan of Treatment Not on file documented as of this encounter Visit Diagnoses Not on filedocumented in this encounter Care Teams Top Precipitator Operator Helper Relationship Specialty Start Date End Date Edson Miller MD [address] [place] [address] PCP - General Internal Medicine/Pediatrics 07/21/22 07/11/24 Consuelo Segundo, BELLE [address] [address] PCP - General Family Medicine 07/12/24 Salomón Frausto PA-C [address] [place] [address] Orthopedist Physician Center Sales And Service Associate 05/07/22 documented as of this encounter
--- OUTSIDE RECORDS SUMMARY | 2025-07-07 11:06 | XMS_ITS | Continuity of Care Document ---
Author Organization [place] - Linneus AFINOS., [facility] Address [address] [place] [address] Care Team Providers Care Machine Stitcher Name Role Phone DANIEL BARCLAY Orthopedic Surgeon NINA ROSS Supervisor Tunnel Heading CONSUELO SEGUNDO Primary Care Provider Unavailabl e [...] available Not available Not available Lab rapid influenza virus A + B and SARS CoV + SARS CoV 2 Ag panel, [place], upper respirato ry specimen 2024 025 loubalars [facility], [address] [place] [address], [phone], 05/25/2025 10:44:04 Referral None recorded. Procedures None recorded. Surgeries None recorded. Imaging None recorded. Medication Orders cetirizin e 10 mg tablet 2024 025 [facility], [address] [place] [address], [address], 05/25/2025 10:56:22 Patient TargetsNo targets recorded. Patient Instructions Encounter Date Encounter Id Patient Instructions Last Modified By Organization Details Last Modified Time 05/25/2025 [id number] cough: care instructions Not available 05/25/2025 10:44:04 upper respirator y infection (cold): care instructions Not available 05/25/2025 10:44:04 Reason for Referral None Reported. Results Created Date Observation Date Name Description Value Unit Range Abnormal Flag Note LastModifiedBy Organization Detail LastModifiedTime 05/25/2005/25/2025 rapid influ kayleen virus A + B and SARS CoV + SARS CoV 2 Ag panel , [place], upper respi rator y speci men SARS-CoV2 negati ve Not Available [address], [address], 05/25/2025 10:16:23 05/25/2005/25/2025 rapid influ kayleen virus A + B and SARS CoV + SARS CoV 2 Ag panel , [place], upper respi rator y speci men Flu A negati ve Not Available [address], [address], 05/25/2025 10:16:23 05/25/20 25 05/25/2025 rapid influ kayleen virus A + B and SARS CoV + SARS CoV 2 Ag panel , [place], upper respi rator y speci men Flu B negati ve Not Available [address], [address], 05/25/2025 10:16:23 Result Notes None recorded. Problems Name Problem SNOMED Code Status Onset Date Resolution Date Notes Provider Name and Address Organization Details Recorded Time Type 2 diabetes mellitus 37839621 Active 2021 ANGELINA Echeverria - [employer] 5 16:03:13 Neuropathy 229129667 Active 2021 ANGELINA Davison - [employer] 2 10:11:01 Essential hypertensio n 75736503 Active 2022 NIKO NAVA [address], [address], [employer] 3 16:49:00 COVID-19 388153645 Active 2022 NIKO NAVA [address], [address], [employer] 3 08:58:30 Mixed hyperlipide kiet 654812334 Active 2022 NIKO NAVA [address], [address], [employer] 3 12:18:26 Benign prostatic hyperplasia 729498905 Active 2023 NIKO NAVA [address], [address], [employer] 4 11:19:02 Neuropathy due to type 2 diabetes mellitus 6017734640266 06 Active 2023 NIKO NAVA [address], [address], [employer] 4 16:41:35 Hemorrhoids 56989390 Active 2023 NIKO NAVA [address], [address], [employer] 4 16:45:17 Increased frequency of urination 324334812 Active 2023 NIKO NAVA [address], [address], [employer] 4 16:45:44 Lesion of skin of right ear 6185659150035 9106 Active 2023 NIKO NAVA [address], [address], [employer] 4 16:41:04 Skin lesion 27811234 Active 2023 NIKO NAVA, WOOD MILLING MACHINE TENDER-BC [address] [place] [address], [address], [place] [employer] 4 16:41:16 Cough 84610902 Active 2023 Gerda Reed, [place] [address] [place] [address], [address], [employer] 5 10:27:23 Slurred speech 918474918 Active 2023 Anca Donaldson NP [address] [place] [address], [address], [employer] 4 12:56:59 Headache 82555052 Active 2023 Anca Donaldson NP [address] [place] [address], [address], [employer] 4 12:57:08 Nausea and vomiting 19679047 Active 2023 Anca Donaldson NP [address] [place] [address], [address], [employer] 4 12:57:13 Closed injury of head 690694685585 Active 2023 Anca Donaldson NP [address] [place] [address], [address], [employer] 4 12:57:28 Fever 042718647 Active 2023 Kimmy hsu, [employer] 4 17:00:08 Type 2 diabetes mellitus without complicatio n 793313350 Active 2023 Kimmy hsu, [employer] 4 16:46:21 Hyperlipide kiet 30783732 Active 2024 Kimmy hsu, [employer] 5 12:16:58 Diabetes mellitus 32487750 Active 2024 Kimmy hsu, [employer] 5 16:41:09 Upper respiratory infection 05537150 Active 2024 Gerda Reed, ACTIVE DIRECTORY ADMINISTRATOR [address] [facility], [place], [address], [employer] 5 10:43:00 Nasal congestion 74231584 Active 2024 MICHAEL MCCOLLUM, ACTIVE DIRECTORY ADMINISTRATOR [address] [place], [address], [employer] 5 11:00:47 Acute left otitis media 978856629 Active 2024 MICHAEL MCCOLLUM, ACTIVE DIRECTORY ADMINISTRATOR [address] [place], [address], [employer] 5 11:01:12 Notes:Some problems listed i n Documents: #[id number], #[id number] could not be added to this patient's chart. Please review these documents and add these problems to the patient's chart manually as needed. Problem Notes None recorded. Procedures Surgical History Date Name Laterality Status Provider Name and Address Organization Details Recorded Time 4 extraction of cataract completed Kimmy Berman [employer] 07/17/2024 16:41:15 Orthopedic Surgery completed MORENO HAWTHORNENER [employer] 07/20/2022 09:59:44 Imaging Results None recorded. Procedure Notes None recorded. Medical Equipment None Reported. Allergies Allergen ID Allergen Name Allergen Category Reaction Reaction Severity Criticality Documentation Date Start Date Code Code System Note Provider Name and Address Organization Details Recorded Time 57551 Levaquin medicatio n Not available Not available Not available 07/20/2022 59800 2 RxNorm MORENOMAGDALENE MARTINEZ [employer], [employer] 2 11:30:32 39517 Flagyl medicatio n Not available Not available Not available 07/20/202214168 6 RxNorm MORENOMAGDALENE MARTINEZ shadi, [employer] 2 11:30:41 87826 lithium Not available Not available Not available Not available 07/20/2022 6448 RxNorm MORENOMAGDALENE MARTINEZ shadi, [employer] 2 11:30:46 68204 prednison e medicatio n Not available Not available Not available 07/20/2022 8640 RxNorm MORENO MARTINEZ null, [employer] 2 11:30:59 39938 Singulair medicatio n Not available Not available Not available 07/07/2023 97440 9 RxNorm KYUNG YEPEZ null, [employer] 3 16:31:08 94244 Asmanex medicatio n Not available Not available Not available 07/07/2023 31158 2 RxNorm KYUNG YEPEZ null, [employer] 3 16:31:22 02705 Gralise medicatio n Not available Not available Not available 07/01/20252012 39748 76 RxNorm Grali se Not Available blake - [employer] - prod 5 16:30:42 89879 Lipitor medicatio n Not available Not available Not available 07/01/2025 63585 5 RxNorm Not Available [employer] - [employer] - prod 5 16:30:42 70832 baclofen medicatio n vomiting severe high 07/01/20252022 1292 RxNorm Tia Huang null, [employer] 5 10:26:35 57961 atorvasta tin calcium medicatio n Not available Not available low 07/01/20252018 35768 RxNorm unrec ogniz ed react ion (text : Unkno wn - Patie nt state s they do not know rxn detai ls, code: 35848 5006) (from exter nal [facility] e) Not Available [employer] - External Data Service - prod 5 16:31:25 18033 aztreonam medicatio n other Not available low 07/01/20252024 1272 RxNorm Azact am Not Available [employer] - External Data [employer] - prod 5 16:31:25 55011 gabapenti n medicatio n Not available Not available low 07/01/20252015 64074 RxNorm unrec ogniz ed react ion (text : Unkno wn - Patie nt state s they do not know rxn detai ls, code: 04217 5006) [facility] Not Available blake - External Data Service - prod 16:31:25 37887 Latex (substanc e) environme nt,medica tion Not available Not available low 07/01/20252015 07896 8007 SNOMED unrec ogniz ed react ion (text : Unkno wn - Patie nt state s they do not know rxn detai ls, code: 07964 5006) (from exter [facility] e) Not Available blake - External Data Service - prod 16:31:25 87095 levofloxa val medicatio n Not available Not available low 07/01/20252015 05003 RxNorm unrec ogniz ed react ion (text : Unkno wn - Patie nt state s they do not know rxn detai ls, code: 64901 5006) [facility] Not Available [employer] - External Data [employer] - prod 16:31:25 70907 metronida zole medicatio n Not available Not available low 07/01/20252015 6922 RxNorm unrec ogniz ed react ion (text : Unkno wn - Patie nt state s they do not know rxn detai ls, code: 18557 5006) (from [facility] e) Not Available blake - External Data Service - prod 16:31:25 22245 mometason e furoate medicatio n other Not available low 07/01/20252015 11045 RxNorm unrec ogniz ed react ion (text : Unkno wn - Patie nt state s they do not know rxn detai ls, code: 10515 5006) [facility] Not Available blake - External Data Service - prod 16:31:[address] medicatio n Not available Not available low 07/01/20252015 94510 RxNorm unrec ogniz ed react ion (text : Unkno wn - Patie nt state s they do not know rxn detai ls, code: 61174 5006) (from [facility]) Not Available blake - External Data Service - prod 16:31:25 01234 prednisol one medicatio n Not available Not available low 07/01/20252015 8638 RxNorm unrec ogniz ed react ion (text : Unkno wn - Patie nt state s they do not know rxn detai ls, code: 23795 5006) [facility] Not Available [employer] - External Data Service - prod 16:31:25 10879 atorvasta tin medicatio n Not available Not available Not available 07/01/2025 20951 RxNorm unrec ogniz ed react ion (text : Adver se react ion to subst ance, code: 82733 0009) (from [facility]) Not Available blake - External Data Service - prod 16:31:33 22930 Azactam medicatio n Not available Not available Not available 07/01/2025 90960 1 RxNorm Not Available [employer]ake - External Data Service - prod 16:31:40 48802 topiramat e medicatio n Not available Not available Not available 07/01/20252021 47878 RxNorm Not Available blake - External Data [...] Not Available Not Available Not Available OneTouch Ultra Test strips use to test 2-3 [...] procedur e. DO not drive, must have shag truck driver present FOR procedur e active Not [...] propionate 50 mcg/actuat ion nasal spray,susp ension [place] 1 spray every day by intranas al [...] Updated DateTime 5 167.64 cm 31.3 kg/m2 53615.9 2 g 97.5 [degF] 69 /min 97 % 133/77 mm[Hg] Deyvi Banks [employer] 5 10:16:16 Social History Question Answer Notes LastModified by Organizat ion Details LastModified Time Tobacco Smoking Status Former Smoker MORENOMAGDALENE HAWTHORNEBRITTNEY hsu [employer]. 07/20/2022 10:12:00 Do You Have An Advance Directive? No [email or web address] Information not available 07/20/2022 Is Your Home Air Conditioned? Yes [email or web address] Information not available 07/20/2022 Are You Blind Or Do You Have Difficulty Seeing? Yes Information not available 07/20/2022 What Is Your Level Of Caffeine Consumption? Occasional [email or web address] Information not available 12/17/2022 Are You A Caregiver? No [email or web address] Information not available 07/20/2022 In The 14 Days Before Symptom Onset, Have You Had Close Contact With A Laboratory-confir med COVID-19 While That Case Was Ill? No [email or web address] Information not available 07/20/2022 In The 14 Days Before Symptom Onset, Have You Had Close Contact With A Person Who Is Under Investigation For COVID-19 While That Person Was Ill? No [email or web address] Information not available 07/20/2022 Have You Been To An Area Known To Be High Risk For COVID-19? No [email or web address] Information not available 07/20/2022 Are You Deaf Or Do You Have Serious Difficulty Hearing? No [email or web address] Information not available 07/20/2022 What Type Of Diet Are You Following? REGULAR [email or web address] Information not available 07/20/2022 How Many Days Of Moderate To Strenuous Exercise, Like A Brisk Walk, Did You Do In The Last 7 Days? 3 Information not available 07/20/2022 Have There Been Any Changes To Your Family Or Social Situation? No [email or web address] Information no t available 07/20/2022 When Did You Quit Smoking? 16+yearssincel astcigarette Information not available 07/20/2022 Which Of Your Hands Is Dominant? Right nraqzweu94 Information not available 07/20/2022 What Is Your Home Situation? Other mvjcuwjv43 Information not available 07/20/2022 Do You Have A Medical Power Of Authorization Nurse? No Information not available 07/20/2022 What Was The Date Of Your Most Recent Tobacco Screening? 07/05/2025 [email or web address] Information not available 07/05/2025 What Is Your Current Pack Years? 10packyears ghdezcti31 Information not available 07/20/2022 What Is Your Relationship Status? [email or web address] Information not available 07/20/2022 Do You Use Your Seat Belt Or Car Seat Routinely? Yes [email or web address] Information not available 07/20/2022 Do You Have Any Siblings? 8 [email or web address] Information not available 07/20/2022 Do You Have Smoke And Carbon Monoxide Detectors In Your Home? Yes gjejtzcr02 Information not available 07/20/2022 Are You Passively Exposed To Smoke? No [email or web address] Information no t available 07/20/2022 Are There Any Smokers In Your House? No ycujtgvy99 Information not available 07/20/2022 Have You Recently Traveled Abroad? No [email or web address] Information not available 07/20/2022 Do You Have Difficulty Walking Or Climbing Stairs? Yes dhudwwea13 Information not available 07/20/2022 Are You Currently In School? No [email or web address] Information not available 07/20/2022 Do You Have Any Dietary Restrictions? No kzweuerw08 Information not available 07/20/2022 Sex: Male Functional Status Question Answer Note LastModified by Organizat ion Details LastModified Time Do you use any illicit or recreational drugs? No [email or web address] Information not available 07/20/2022 What is your level of alcohol consumption? None vamqkzwk18 Information not available 07/20/2022 Are you currently employed? No Information not available 07/20/2022 Do you have transportation difficulties? No bhwggxol33 Information not available 07/20/2022 Are you able to walk independently without assistance or assistive devices? YESWOREST Information not available 07/20/2022 Do you have difficulty doing errands alone? No [email or web address] Information not available 07/20/2022 Are you able to care for yourself independently? No uicghowj11 Information not available 07/20/2022 Do you have difficulty dressing, bathing, grooming, or toileting? No nobbelhl80 Information not available 07/20/2022 What is your exercise level? Occasional [email or web address] Information not available 07/20/2022 Mental Status Question Answer Note LastModified by Organizat ion Details LastModified Time Do you feel stressed (tense, restless, nervous, or anxious, or unable to sleep at night)? [id number] ltjpvasi02 Information not available 07/20/2022 Do you have difficulty concentrating, remembering or making decisions? Yes ibtrnpaw51 Information no t available 07/20/2022 Family History Relationship Description Onset Age of this Age Resolved Age Notes LastModified by Organization Details LastModified Time Father Heart disease [email or web address] Not available 07/20 09:59:43 Father Hypertensive disorder [email or web address] Not available 07/20 09:59:43 Mother Malignant neoplasm of breast diyruogn83 Not available 07/20 09:59:43 Medical History Condition Response Emergency room visit since last appointm ent. N Acid Reflux (GERD) Y Hospitalizations N ADD/ADHD N Immunizations Vaccine Type Date Status Note Provider Name and Address Organization Details Recorded Time zoster recombinant 04/17/20 24 cancelled patient objection Consuelo Segundo, SUPERVISOR DRY PASTE [address] [facility], [place], [address], [employer] 04/17/2024 18:23:31 Td (adult), 2 Lf tetanus toxoid, preservative free, adsorbed 12/06/18 96 completed MORENO hsu, [employer] 07/20/2022 10:07:13 Td(adult) unspecified formulation 04/22/20 15 completed MORENO hsu [employer] 07/20/2022 10:07:13 Tdap 03/13/20 24 completed Not Available [facility] 07/05/2025 10:24:44 Past Encounters Encounter ID Performer Location Encounter Start Date Encounter Closed Date Diagnosis/Indication Diagnosis SNOMED-CT Code Diagnosis ICD10 Code Diagnosis IMO Codes Diagnosis Note [id number] Gerda Reed NP [address] [address] 05/25/2025 10:06:56 05/25/2025 10:52:39 Cough 70802030 R05.9 [id number] Upper resp iratory infection 48643426 J06.9 78735670 Health Concerns Section Related Observation LastModified by Organization Detai ls LastModified Time None Recorded Concern Status LastModified by Organization Details LastModified Time None Recorded Payers Encounter Date Sequence Insurance Name Policy Number Policy Garcia Covered Member ID Garcia Member ID Guarantor Name 05/25/2025 2 [place] [employer] - FFS/TRADITION AL Elliot Mata [id number] Elliot Mata 05/25/2025 1 [facility] (MEDICARE REPLACEMENT/A DVANTAGE - PPO) [id number] Elliot Mata [id number] Elliot Mata Notes Date Note Type Note Provider Name and Address Organization Details Recorded Time 05/25/2025 text/html ROS as noted in the [...] concerns for today's visit Gerda Reed NP [address] [place] [address], [address], [facility] [employer] 05/25/2025 10:49:28
--- OUTSIDE RECORDS SUMMARY | 2025-07-07 11:06 | XMS_ITS | Encounter Summary ---
Author Organization [employer] [facility] ([place], [place], [place], [place], [place]) Address [address] [place] [address] Care Team Providers Care Food Service Supervisor Name Role Phone Salomón Frausto PA-C Unavailable [phone] Edson Miller MD Primary Care Provider [phone] Consuelo Segundo APRN Primary Care Provider [phone] Encounter Details Date Type Department Care Team (Late st Contact Info) Description 12/04/2020 Transcribed Document [facility] Family Medicine [address] [place] [address] ProviderGaurang MD [address] [place] [address] Social History Tobacco Use Types [...] MATA Emergency Contact #1 Phone Number : [phone] Emergency Contact #1 Relationship : BROTHER Emergency Contact #2 : TONJA YEPEZ Emergency Contact #2 Phone Number : [phone] Emergency Contact #2 Relationship : SISTER Primary Language : Peruvian Communication Barrier : None Cv/Cvn Cv Tsc System Operator Needed : No Loki Coffey Non Emp [...] Level : 46 or > High Risk Plain Fall Interventions : Adequate lighting, Bed in [...] Source : Stated Height Entry Format : [place] Height, Feet : 5 ft(Converted to: 152 [...] Body Mass Index : 36 kg/m2 (HI) [place] Body Weight : 63 kg Loki Coffey [...] Non Emp RN - 12/04/2020 4:44 EDT [place] Suicide Severity Rating Scale (C-SSRS) CSSRS Past [...] on filedocumented in this encounter Care Teams Food Service Supervisor Relationship Specialty Start Date End Date Edson Miller MD [address] [place] [address] PCP - General Internal Medicine/Pediatrics 07/21/22 07/11/24 Consuelo Segundo APRN [address] [facility] [address] [place] [phone] PCP - General Family Medicine 07/12/24 Salomón Frausto PA-C [address] [place] [address] Orthopedist Physician Cell Maker 05/07/22 documented as of this encounter
--- OUTSIDE RECORDS SUMMARY | 2025-07-07 11:06 | XMS_ITS | Encounter Summary ---
Author Organization [email or web address] ([place], [place], [place], [place], [place]) Address [address] [place] [address] Care Team Providers Care Director Process Improvement Name Role Phone Salomón Frausto PA-C Unavailable [phone] Edson Miller MD Primary Care Provider [phone] Consuelo Segundo APRN Primary Care Provider [phone] Encounter Details Date Type Department Care Team (Late st Contact Info) Description 12/04/2020 Transcribed Document [facility] [place] [address] [place] [address] ProviderGaurang MD [address] [place] [address] Social History Tobacco Use Types [...] - 12/04/2020 9:38 EDT Electronically signed by [facility], [facility] Conversion Filler In Cerner at 11/26/2022 6:24 PM CDT documented in this encounter Plan of Treatment Not on file documented as of this encounter Visit Diagnoses Not on filedocumented in this encounter Care Teams Director Process Improvement Relationship Specialty Start Date End Date Edson Miller MD [address] [place] [address] PCP - General Internal Medicine/Pediatrics 07/21/22 07/11/24 Consuelo Segundo, INFRASTRUCTURE DEVELOPER [address] [facility] [address] [place] [address] PCP - General Family Medicine 07/12/24 Salomón Frausto PA-C [address] [place] [address] Orthopedist Physician It Risk Analyst 05/07/22 documented as of this encounter
--- OUTSIDE RECORDS SUMMARY | 2025-07-07 11:06 | XMS_ITS | Encounter Summary ---
Author Organization [email or web address] ([place], [place], [place], [place], [place]) Address [address] [place] [address] Care Team Providers Care Knitter Wire Mesh Name Role Phone Salomón Frausto PA-C Unavailable [phone] Edson Miller MD Primary Care Provider [phone] Consuelo Segundo APRN Primary Care Provider [phone] Encounter Details Date Type Department Care Team (Late st Contact Info) Description 12/05/2020 Transcribed Document [facility] [place] [address] ProviderGaurang MD [address] [place] [address] Social History Tobacco Use Types [...] / 10 but today is about a 1- 2/10 . He did take some Oxycodone last [...] follow up with his outpatient neurologist in [place]. 4. I have told him not to [...] IV Push, Q4H, PRN Electronically signed by [facility], [facility] Conversion Electrotype Molder Cerner at 11/26/2022 6:03 PM CDT documented in this encounter Plan of Treatment Not on file documented as of this encounter Visit Diagnoses Not on filedocumented in this encounter Care Teams Knitter Wire Mesh Relationship Specialty Start Date End Date Edson Miller MD [address] [place] [address] PCP - General Internal Medicine/Pediatrics 07/21/22 07/11/24 Consuelo Segundo, SECTION LEADER [address] [facility] [address] [place] [address] PCP - General Family Medicine 07/12/24 Salomón Frausto PA-C [address] [place] [address] Orthopedist Physician Wood Mechanist 05/07/22 documented as of this encounter
--- OUTSIDE RECORDS SUMMARY | 2025-07-07 11:06 | XMS_ITS | Encounter Summary ---
Author Organization [employer] ([place], [place], [place], [place], [place]) Address [address] [place] [address] Care Team Providers Care Photo Lab Specialist Name Role Phone Salomón Frausto PA-C Unavailable [phone] Edson Miller MD Primary Care Provider + [phone] Consuelo Segundo APRN Primary Care Provider [phone] Encounter Details Date Type Department Care Team (Late st Contact Info) Description 12/04/2020 Transcribed Document [facility] Family Medicine [address] [place] [address] ProviderGaurang MD [address] [place] [address] Social History Tobacco Use Types Packs/Day Years Used Date Smoking Tobacco: Never Assessed Sex and Gender Information Value Date Recorded Sex Assigned at Not on file Legal Sex Male 5:16 PM CDT Gender Identity Not on file Sexual Orientation Not on file documented as of this encounter Miscellaneous Notes * Cerner Conversion Note - Gaurang ProviderMD - 12/04/2020 9:29 AM CDT Pain Assessment Entered On: 12/04/2020 16:14 EDT Performed On: 12/04/2020 10:49 EDT by Indu Bansal, RN Intervention Information: oxyCODONE Performed by Indu Bansal, RN on 12/04/2020 09:49:00 EDT oxyCODONE,5mg Oral,Pain (Severe 7-10) Pain Assessment Pain Assessment : Follow-up assessment Pain Improved by Intervention : Yes Indu Bansal RN - 12/04/2020 16:14 EDT Electronically signed by Lucas Levin Conversion Assistant Chief Nursing Officer Cerner at 11/26/2022 6:21 PM CDT documented in this encounter Plan of Treatment Not on file documented as of this encounter Visit Diagnoses Not on filedocumented in this encounter Care Teams Photo Lab Specialist Relationship Specialty Start Date End Date Edson Miller MD [address] [place] [address] PCP - General Internal Medicine/Pediatrics 07/21/22 07/11/24 Consuelo Segundo, SEMICONDUCTOR PACKAGES TESTER [address] [facility] [address] [place] [address] PCP - General Family Medicine 07/12/24 Salomón Frausto PA-C [address] [place] [address] Orthopedist Physician Technician'S Helper 05/07/22 documented as of this encounter
--- OUTSIDE RECORDS SUMMARY | 2025-07-07 11:06 | XMS_ITS | Encounter Summary ---
Author Organization [employer] ([place], [place], [place], [place], [place]) Address [address] [place] [address] Care Team Providers Care Livery Car Driver Name Role Phone Salomón Frausto PA-C Unavailable [phone] Edson Miller MD Primary Care Provider [phone] Consuelo Segundo APRN Primary Care Provider [phone] Encounter Details Date Type Department Care Team (Late st Contact Info) Description 12/04/2020 Transcribed Document [facility] Family [facility] [place] [address] ProviderGaurang MD [address] [place] [address] Social History Tobacco Use Types [...] EDT Performed On: 12/04/2020 17:00 EDT by Indu Bansal, RN Chart Check Powerplans Initiated/Discontinued as Appropriate : Yes All Active Orders Reviewed : Yes Indu Bansal, RN - 12/04/2020 19:43 EDT documented in this encounter Plan of Treatment Not on file documented as of this encounter Visit Diagnoses Not on filedocumented in this encounter Care Teams Livery Car Driver Relationship Specialty Start Date End Date Edson Miller MD [address] [place] [address] PCP - General Internal Medicine/Pediatrics 07/21/22 07/11/24 Consuelo Segundo, PRESIDENT FINANCIAL INSTITUTION 209 [facility] 200 [place] [address] PCP - General Family Medicine 07/12/24 Salomón Frausto PA-C [address] [place] [address] Orthopedist Physician Project Development Coordinator 05/07/22 documented as of this encounter
--- OUTSIDE RECORDS SUMMARY | 2025-07-07 11:06 | XMS_ITS | Continuity of Care Document ---
Author Organization [facility] [employer] [facility], [place] Address [address] [place] [address] Care Team Providers Care Mock Up Assembler Name Role Phone DANIEL BARCLAY Orthopedic Surgeon NINA ROSS Steam Setter CONSUELO SEGUNDO Primary Care Provider Unavailabl e Assessment No assessment recorded. Plan of Treatment Reminders Order Date Submit Date Provider Last Modified By Organization Details Last Modified Time Details Appointments FOLLOW UP 30 2024 05:00P M Benita Segundo, DOCUMENT MANAGEMENT TECHNICIAN Not available Not available Not available Lab rapid strep group A, throat [address], [address] [place] [address], [phone], 07/05/2025 11:05:48 rapid influenza virus A + B and SARS CoV + SARS CoV 2 Ag panel, [place], upper respirato ry specimen [address], [address] [place] [address], [phone], 07/05/2025 11:05:49 Referral None recorded. Procedures None recorded. Surgeries None recorded. Imaging None recorded. Medication Orders fluticaso ne propionat e 50 mcg/actua tion nasal spray,tye pension 2024 025 [facility], [address] [place] [address], [phone], 07/05/2025 14:52:31 azithromy val 250 mg tablet 2024 025 [facility], [address] [place] [address], [address], 07/05/2025 14:52:31 Patient TargetsNo targets recorded. Patient Instructions Encounter Date Encounter Id Patient Instructions Last Modified By Organization Details Last Modified Time 07/05/2025 [id number] sore throat: car e instructions Not available 07/05/2025 11:05:49 upper respirator y infection (cold): care instructions Not available 07/05/2025 11:05:49 Reason for Referral None Reported. Results Created Date Observation Date Name Description Value Unit Range Abnormal Flag Note LastModifiedBy Organization Detail LastModifiedTime 07/05/2007/05/2025 rapid influ kayleen virus A + B and SARS CoV + SARS CoV 2 Ag panel , [place], upper respi rator y speci men SARS-CoV2 negati ve Not Available [address], [address], 07/05/2025 10:38:08 07/05/20 25 07/05/2025 rapid influ kayleen virus A + B and SARS CoV + SARS CoV 2 Ag panel , [place], upper respi rator y speci men Flu A negati ve Not Available [address], [address], 07/05/2025 10:38:08 07/05/20 25 07/05/2025 rapid influ kayleen virus A + B and SARS CoV + SARS CoV 2 Ag panel , [place], upper respi rator y speci men Flu B negati ve Not Available [address], [address], 07/05/2025 10:38:08 07/05/20 25 07/05/2025 rapid strep group A, throa t Strep negati ve Not Available [address], [place], [address], 07/05/2025 10:37:54 Result Notes None recorded. Problems Name Problem SNOMED Code Status Onset Date Resolution Date Notes Provider Name and Address Organization Details Recorded Time Type 2 diabetes mellitus 01016585 Active 2021 Kimmy Mindenm[place] shadi, [facility] [employer] 5 16:03:13 Neuropathy 232014613 Active 2021 MORENO AMRTINEZ null, [place] [employer] 2 10:11:01 Essential hypertensio n 68525773 Active 2022 NIKO NAVA [address], [address], [facility] [employer] 3 16:49:00 COVID-19 945579500 Active 2022 NIKO NAVA [address], [address], [facility] [employer] 3 08:58:30 Mixed hyperlipide kiet 941143462 Active 2022 NIKO NAVA [address], [address], [facility] [employer] 3 12:18:26 Benign prostatic hyperplasia 539668786 Active [address], [address], [place] [employer] 4 11:19:02 Neuropathy due to type 2 diabetes mellitus 3755984348137 06 Active 2023 NIKO NAVA [address], [address], [facility] [employer] 4 16:41:35 Hemorrhoids 47759241 Active 2023 NIKO NAVA [address], [address], [employer] 16:45:17 Increased frequency of urination 480818274 Active 2023 NIKO NAVA [address], [address], [place] [employer] 4 16:45:44 Lesion of skin of right ear 5484536664447 9106 Active 2023 NIKO NAVA [address], [address], [place] [employer] 16:41:04 Skin lesion 59459638 Active 2023 NIKO NAVA [address], [address], [place] [employer] 4 16:41:16 Cough 70628706 Active 2023 Gerda Reed NP [address] [place] [address], [address], [place] [employer] 5 10:27:23 Slurred speech 386069661 Active 2023 Anca Donaldson NP [address] [place] [address], [address], [place] [employer] 4 12:56:59 Headache 20930459 Active 2023 Anca Donaldson NP [address] [place] [address], [address], [place] [employer] 4 12:57:08 Nausea and vomiting 02256211 Active 2023 Anca Donaldson NP [address] [place] [address], [address], [place] [employer] 4 12:57:13 Closed injury of head 281718709544 Active 2023 Anca Donaldson NP [address] [place] [address], [address], [place] [employer] 4 12:57:28 Fever 403069253 Active 2023 Kimmy hsu, [employer] 4 17:00:08 Type 2 diabetes mellitus without complicatio n 987737176 Active 2023 Kimmy hsu, [employer] 4 16:46:21 Hyperlipide kiet 48748985 Active 2024 Kimmy hsu, [employer] 5 12:16:58 Diabetes mellitus 76263348 Active 2024 Kimmy hsu, [employer] 5 16:41:09 Upper respiratory infection 36430149 Active 2024 Gerda Reed, KAYLEIGH [address] [place], [address], [employer] 5 10:43:00 Nasal congestion 17440581 Active 2024 MICHAEL MCCOLLUM NP [address] [place], [address], [employer] 5 11:00:47 Acute left otitis media 872216765 Active 2024 MICHAEL MCCOLLUM NP [address] [place], [address], [employer] 5 11:01:12 Notes:Some problems listed i n Documents: #[id number], #[id number] could not be added to this patient's chart. Please review these documents and add these problems to the patient's chart manually as needed. Problem Notes None recorded. Procedures Surgical History Date Name Laterality Status Provider Name and Address Organization Details Recorded Time 4 extraction of cataract completed Kimmy Berman [employer] 07/17/2024 16:41:15 Orthopedic Surgery completed MORENO MARTINEZ [employer] 07/20/2022 09:59:44 Imaging Results None recorded. Procedure Notes None recorded. Medical Equipment None Reported. Allergies Allergen ID Allergen Name Allergen Category Reaction Reaction Severity Criticality Documentation Date Start Date Code Code System Note Provider Name and Address Organization Details Recorded Time 08281 Levaquin medicatio n Not available Not available Not available 07/20/2022 00363 2 RxNorm MORENO MARTINEZ null, [employer] 2 11:30:32 52616 Flagyl medicatio n Not available Not available Not available 07/20/2022 22453 6 RxNorm MORENO MARTINEZ null, [employer] 2 11:30:41 66279 lithium Not available Not available Not available Not available 07/20/2022 6448 RxNorm MORENO MARTINEZ null, [employer] 2 11:30:46 71846 prednison e medicatio n Not available Not available Not available 07/20/2022 8640 RxNorm MORENO hsu, [employer] 2 11:30:59 73277 Singulair medicatio n Not available Not available Not available 07/07/2023 91896 9 RxNorm KYUNG YEPEZ null, [employer] 3 16:31:08 83613 Asmanex medicatio n Not available Not available Not available 07/07/2023 20731 2 RxNorm KYUNG hsu, [employer] 3 16:31:22 70288 Gralise medicatio n Not available Not available Not available 07/01/20252012 96798 76 RxNorm Grali se Not Available [employer] - [employer] - prod 5 16:30:42 03933 Lipitor medicatio n Not available Not available Not available 07/01/2025 90613 5 RxNorm Not Available [employer] - External [employer] - prod 5 16:30:42 51277 baclofen medicatio n vomiting severe high 07/01/20252022 1292 RxNorm Tia Huang null, [employer] 5 10:26:35 82547 atorvasta tin calcium medicatio n Not available Not available low 07/01/20252018 69268 RxNorm unrec ogniz ed react ion (text : Unkno wn - Patie nt state s they do not know rxn detai ls, code: 09872 5006) ([facility] Not Available [employer] - External Data Service - prod 16:31:25 94546 aztreonam medicatio n other Not available low 07/01/20252024 1272 RxNorm Azact am Not Available [employer] - External Data [employer] - prod 16:31:25 97022 gabapenti n medicatio n Not available Not available low 07/01/20252015 18031 RxNorm unrec ogniz ed react ion (text : Unkno wn - Patie nt state s they do not know rxn detai ls, code: 84409 5006) ([facility]) Not Available [employer] - External Data Service - prod 16:31:25 98900 Latex (substanc e) environme nt,medica tion Not available Not available low 07/01/20252015 33752 8007 SNOMED unrec ogniz ed react ion (text : Unkno wn - Patie nt state s they do not know rxn detai ls, code: 48290 5006) ([facility]) Not Available [employer] - External Data [employer] - prod 16:31:25 74193 levofloxa val medicatio n Not available Not available low 07/01/20252015 72642 RxNorm unrec ogniz ed react ion (text : Unkno wn - Patie nt state s they do not know rxn detai ls, code: 56218 5006) ([facility] Not Available [employer] - External Data Service - prod 16:31:25 56812 metronida zole medicatio n Not available Not available low 07/01/20252015 6922 RxNorm unrec ogniz ed react ion (text : Unkno wn - Patie nt state s they do not know rxn detai ls, code: 66983 5006) (from [facility]) Not Available [employer] - External Data Service - prod 16:31:25 43639 mometason e furoate medicatio n other Not available low 07/01/20252015 80758 RxNorm unrec ogniz ed react ion (text : Unkno wn - Patie nt state s they do not know rxn detai ls, code: 31042 5006) (from [facility]) Not Available blake - External Data Service - prod 16:31:[address] medicatio n Not available Not available low 07/01/20252015 00858 RxNorm unrec ogniz ed react ion (text : Unkno wn - Patie nt state s they do not know rxn detai ls, code: 81822 5006) (from [facility]) Not Available [employer]ake - External Data Service - prod 16:31:25 95133 prednisol one medicatio n Not available Not available low 07/01/20252015 8638 RxNorm unrec ogniz ed react ion (text : Unkno wn - Patie nt state s they do not know rxn detai ls, code: 14863 5006) (from [facility]) Not Available [employer] - External Data Service - prod 16:31:25 65983 atorvasta tin medicatio n Not available Not available Not available 07/01/2025 21896 RxNorm unrec ogniz ed react ion (text : Adver se react ion to subst ance, code: 15453 0009) (from [facility]) Not Available [employer]ake - External Data Service - prod 16:31:33 19824 Azactam medicatio n Not available Not available Not available 07/01/202505604 1 RxNorm Not Available blake - External Data Service - prod 16:31:40 25644 topiramat e medicatio n Not available Not available Not available 07/01/20252021 31820 RxNorm Not Available blake - External Data [...] procedur e. DO not drive, must have concrete mixer truck driver present FOR procedur e active [...] propionate 50 mcg/actuat ion nasal spray,susp ension [place] 1 spray every day by intranas al [...] 16 oz of water within 20 minutes. RADUAN T If you experien ce pre-rela pravin [...] Updated DateTime 5 167.64 cm 32.3 kg/m2 29927.5 7 g 97.5 [degF] 95 % 62 /min 130/77 mm[Hg] Tia Huang [employer] 5 10:32:09 Social History Question Answer Notes LastModified by Organizat ion Details LastModified Time Tobacco Smoking Status Former Smoker MORENO hsu, [employer]. 07/20/2022 10:12:00 Do You Have An Advance Directive? No [email or web address] Information not available 07/20/2022 Is Your Home Air Conditioned? Yes [email or web address] Information not available 07/20/2022 Are You Blind Or Do You Have Difficulty Seeing? Yes [email or web address] Information not available 07/20/2022 What Is Your Level Of Caffeine Consumption? Occasional [email or web address] Information not available 12/17/2022 Are You A Caregiver? No [email or web address] Information not available 07/20/2022 In The 14 Days Before Symptom Onset, Have You Had Close Contact With A Laboratory-confir med COVID-19 While That Case Was Ill? No [email or web address] Information not available 07/20/2022 In The 14 Days Before Symptom Onset, Have You Had Close Contact With A Person Who Is Under Investigation For COVID-19 While That Person Was Ill? No [email or web address] Information not available 07/20/2022 Have You Been To An Area Known To Be High Risk For COVID-19? No [email or web address] Information not available 07/20/2022 Are You Deaf Or Do You Have Serious Difficulty Hearing? No [email or web address] Information not available 07/20/2022 What Type Of Diet Are You Following? REGULAR [email or web address] Information not available 07/20/2022 How Many Days Of Moderate To Strenuous Exercise, Like A Brisk Walk, Did You Do In The Last 7 Days? 3 [email or web address] Information not available 07/20/2022 Have There Been Any Changes To Your Family Or Social Situation? No Information no t available 07/20/2022 When Did You Quit Smoking? 16+yearssincel astcigarette zefgbtwx41 Information not available 07/20/2022 Which Of Your Hands Is Dominant? Right [email or web address] Information not available 07/20/2022 What Is Your Home Situation? Other [email or web address] Information not available 07/20/2022 Do You Have A Medical Power Of Survey Operations Director? No [email or web address] Information not available 07/20/2022 What Was The Date Of Your Most Recent Tobacco Screening? 07/05/2025 [email or web address] Information not available 07/05/2025 What Is Your Current Pack Years? 10packyears uhfasqtl35 Information not available 07/20/2022 What Is Your Relationship Status? [email or web address] Information not available 07/20/2022 Do You Use Your Seat Belt Or Car Seat Routinely? Yes [email or web address] Information not available 07/20/2022 Do You Have Any Siblings? 8 [email or web address] Information not available 07/20/2022 Do You Have Smoke And Carbon Monoxide Detectors In Your Home? Yes [email or web address] Information not available 07/20/2022 Are You Passively Exposed To Smoke? No [email or web address] Information no t available 07/20/2022 Are There Any Smokers In Your House? No Information not available 07/20/2022 Have You Recently Traveled Abroad? No [email or web address] Information not available 07/20/2022 Do You Have Difficulty Walking Or Climbing Stairs? Yes [email or web address] Information not available 07/20/2022 Are You Currently In School? No cosgwvmc75 Information not available 07/20/2022 Do You Have Any Dietary Restrictions? No [email or web address] Information not available 07/20/2022 Sex: Male Functional Status Question Answer Note LastModified by Organizat ion Details LastModified Time Do you use any illicit or recreational drugs? No Information not available 07/20/2022 What is your level of alcohol consumption? None [email or web address] Information not available 07/20/2022 Are you currently employed? No Information not available 07/20/2022 Do you have transportation difficulties? No [email or web address] Information not available 07/20/2022 Are you able to walk independently without assistance or assistive devices? YESWOREST bpwktmxa24 Information not available 07/20/2022 Do you have difficulty doing errands alone? No [email or web address] Information not available 07/20/2022 Are you able to care for yourself independently? No [email or web address] Information not available 07/20/2022 Do you have difficulty dressing, bathing, grooming, or toileting? No [email or web address] Information not available 07/20/2022 What is your exercise level? Occasional [email or web address] Information not available 07/20/2022 Mental Status Question Answer Note LastModified by Organizat ion Details LastModified Time Do you feel stressed (tense, restless, nervous, or anxious, or unable to sleep at night)? [id number] [email or web address] Information not available 07/20/2022 Do you have difficulty concentrating, remembering or making decisions? Yes [email or web address] Information no t available 07/20/2022 Family History Relationship Description Onset Age of this Age Resolved Age Notes LastModified by Organization Details LastModified Time Father Heart disease [email or web address] Not available 07/20 09:59:43 Father Hypertensive disorder [email or web address] Not available 07/20 09:59:43 Mother Malignant neoplasm of breast [email or web address] Not available 07/20 09:59:43 Medical History Condition Response Emergency room visit since last appointm ent. N Acid Reflux (GERD) Y Hospitalizations N ADD/ADHD N Immunizations Vaccine Type Date Status Note Provider Name and Address Organization Details Recorded Time zoster recombinant 04/17/20 24 cancelled patient objection Consuelo Segundo, DOCUMENT MANAGEMENT TECHNICIAN [address] [facility], [place], [address], [facility] [employer] 04/17/2024 18:23:31 Td (adult), 2 Lf tetanus toxoid, preservative free, adsorbed 12/06/18 96 completed MORENOMAGDALENE hsu, [employer] 07/20/2022 10:07:13 Td(adult) unspecified formulation 04/22/20 15 completed MORENO hsu, [employer] 07/20/2022 10:07:13 Tdap 03/13/20 24 completed Not Available [facility] 07/05/2025 10:24:44 Past Encounters Encounter ID Performer Location Encounter Start Date Encounter Closed Date Diagnosis/Indication Diagnosis SNOMED-CT Code Diagnosis ICD10 Code Diagnosis IMO Codes Diagnosis Note [id number] MICHAEL MCCOLLUM NP [address] [address] 07/05/2025 10:17:01 07/05/2025 11:17:54 Sore throat 233596574 J02.9 22559 Viral scre ening status 159570319 Z11.59 525487 Nasal congestion 0251906 0 R09.81 60422 Upper resp iratory infection 94397004 J06.9 [id number] Health Concerns Section Related Observation LastModified by Organization Detai ls LastModified Time None Recorded Concern Status LastModified by Organization Details LastModified Time None Recorded Payers Encounter Date Sequence Insurance Name Policy Number Policy Garcia Covered Member ID Garcia Member ID Guarantor Name 07/05/2025 2 MEDICAID-[facility] CHOICES - FFS/TRADITION AL Elliot Mata [id number] Elliot Mata 07/05/2025 1 [facility] (MEDICARE REPLACEMENT/A DVANTAGE - PPO) DANIELA Mata [id number] Elliot Mata Notes Date Note Type Note Provider Name and Address Organization Details Recorded Time 07/05/2025 text/html ROS as noted in the HPI Presents today with complaints for 2 days of fever, cough that produces thick yellow green mucus, nasal drainage also producing thick mucus, head congestion, sore throat, and body aches. No known sick contacts. Has been using tylenol and ibuprofen for pain and fever relief. MICHAEL MCCOLLUM NP [address] [place] [address], [address], [facility] [employer] 07/05/2025 11:17:39
--- OUTSIDE RECORDS SUMMARY | 2025-07-07 11:06 | XMS_ITS | Encounter Summary ---
Author Organization [employer] ([place], [place], [place], [place], [place]) Address [address] [place] [address] Care Team Providers Care Cook Box Filler Name Role Phone Salomón Frausto PA-C Unavailable [phone] Edson Miller MD Primary Care Provider [phone] Consuelo Segundo APRN Primary Care Provider [phone] Encounter Details Date Type Department Care Team (Late st Contact Info) Description 12/04/2020 Transcribed Document [facility] [place] [address] [place] [address] ProviderGaurang MD [address] [place] [address] Social History Tobacco Use Types [...] on filedocumented in this encounter Care Teams Cook Box Filler Relationship Specialty Start Date End Date Edson Miller MD [address] [place] [address] PCP - General Internal Medicine/Pediatrics 07/21/22 07/11/24 Consuelo Segundo, SWITCHING CLERK [address] [facility] [address] [place] [address] PCP - General Family Medicine 07/12/24 Salomón Frausto PA-C [address] [place] [address] Orthopedist Physician Brand Sales Consultant 05/07/22 documented as of this encounter
--- OUTSIDE RECORDS SUMMARY | 2025-07-07 11:06 | XMS_ITS | Encounter Summary ---
Author Organization [employer] ([place], [place], [place], [place], [place]) Address [address] [place] [address] Care Team Providers Care Office Helper Name Role Phone Salomón Frausto PA-C Unavailable [phone] Edson Miller MD Primary Care Provider [phone] Consuelo Segundo APRN Primary Care Provider +- [phone] Encounter Details Date Type Department Care Team (Late st Contact Info) Description 12/05/2020 Transcribed Document [facility] Family [place] [address] ProviderGaurang MD [address] [place] [address] Social History Tobacco Use Types Packs/Day Years Used Date Smoking Tobacco: Never Assessed Sex and Gender Information Value Date Recorded Sex Assigned at Not on file Legal Sex Male 5:16 PM CDT Gender Identity Not on file Sexual Orientation Not on file documented as of this encounter Miscellaneous Notes * Cerner Conversion Note - Historical ProviderMD - 12/05/2020 2:59 PM [address] [address] KUSH MATA :1960 Visit Time:12/04/2020 Your [...] up appointment with his outpatient neurologist in [place]. When Within 2 to 3 days Medications [...] (fluticasone 50 mcg/ inh nasal spray) 1 [place](s) Nasal Every Day glycopyrrolate (glycopyrrolate 2 mg [...] through the local health department and the [place] Department for Public Health. Those organizations are [...] and need to call 911, notify the harvester operator that you have, or think you [...] clean your hands with an alcohol-based hand rn urgent care that contains at least 60% alcohol. Clean your hands often. ??? Wash hands: Wash your hands often with soap and water for at least 20 seconds when visibly dirty. This is especially important after blowing your nose, coughing or sneezing, and going to the bathroom, and before eating or preparing food. ??? Hand rn urgent care: Use an alcohol-based hand rn urgent care with at least 60% alcohol, covering all [...] and water or put them in the oil analyst. Clean all high-touch surfaces every day. Clean [...] or body fluids on them. ??? Household open source developer and disinfectants: Clean the area or item [...] list of disinfectants can be found here: https://www.epa.gov/pesticide-registration/ldma-o-ymcbusyoherjv-atu-qantagn-br rs-cov-2 Concussion, Adult A concussion is a [...] you are dizzy. General instructions ??? Take nrcq-agg-hmgwwpb and prescription medicines only as told by your doctor. ??? Do not drink alcohol until your doctor says you can. ??? Watch your symptoms and tell other people to do the same. Other problems can occur after a concussion. Older adults have a higher risk of serious problems. ??? Tell your pan tank worker, teachers, school nurse, school counselor, other sports coach or instructor, or computer technology trainer about your injury and symptoms. Tell [...] provider. Document Revised: 03/15/2019 Document Reviewed: 03/15/2019 Plan[employer] Patient Education ?? 2020 USEREADY. cyclobenzaprine (basilio fitch) Emilia, María Elena Pac [...] may report side effects to FDA at 1-407-UMF-2455. What other drugs will affect cyclobenzaprine? Using [...] drugs may affect cyclobenzaprine, including prescription and pmmx-bry-yucicma medicines, vitamins, and herbal products. Not all [...] to ensure that the information provided by [employer]. ('Mult[employer]') is accurate, up-to-date, and complete, but no guarantee is made to that effect. Drug information contained herein may be time sensitive. Support[employer] information has been compiled for use by healthcare practitioners and consumers in the [place] and therefore SupportLocal does not warrant that uses outside of the [place] are appropriate, unless specifically indicated otherwise. [employer] drug information does not endorse drugs, diagnose patients or recommend therapy. [employer] drug information is an informational resource designed [...] effective or appropriate for any given patient. [employer] does not assume any responsibility for any aspect of healthcare administered with the aid of information SupportLocal provides. The information contained herein is not intended to cover all possible uses, directions, precautions, warnings, drug interactions, allergic reactions, or adverse effects. If you have questions about the drugs you are taking, check with your doctor, nurse or pharmacist. Copyright 6967-6580 [employer]. Version: 5.01. Revision Date: 05/03/2018. oxycodone (ox [...] The extended-release form of oxycodone is for nirnoa-nvt-cpceo treatment of pain and should not be [...] against the law. Stop taking all other onkejh-xwu-kzwtz opioid pain medicines when you start taking [...] may report side effects to FDA at 7-476-FXV-1202. What other drugs will affect oxycodone? You [...] may affect oxycodone. This includes prescription and fwpe-yfd-vdnmnlz medicines, vitamins, and herbal products. Not all [...] to ensure that the information provided by [employer]. ('Multum') is accurate, up-to-date, and complete, but no guarantee is made to that effect. Drug information contained herein may be time sensitive. [employer] information has been compiled for use by healthcare practitioners and consumers in the [place] and therefore SupportLocal does not warrant that uses outside of the [place] are appropriate, unless specifically indicated otherwise. [employer] drug information does not endorse drugs, diagnose patients or recommend therapy. [employer] drug information is an informational resource designed [...] effective or appropriate for any given patient. [employer] does not assume any responsibility for any aspect of healthcare administered with the aid of information SupportLocal provides. The information contained herein is not intended to cover all possible uses, directions, precautions, warnings, drug interactions, allergic reactions, or adverse effects. If you have questions about the drugs you are taking, check with your doctor, nurse or pharmacist. Copyright 5517-6144 [employer]. Version: 14.02. Revision Date: 09/04/2020. Emergency Awareness [...] Assistance with quitting is available by contacting 6-395-HAVMNOW. This is a free resource providing counseling, support, and referral. Or you may contact your personal physician. [employer] Suicide Prevention Lifeline: The National Suicide Prevention [...] range between ( 0.0 and 7.0 ) Mathews #: 0.48 K/uL -- Normal range between ( 0.16 and 1.00 ) Eos #: 0.27 x10(3)/uL -- Normal range between ( 0.00 and 0.80 ) Mathews %: 11.4 % -- Normal range between [...] was given the opportunity to ask questions. Patient/Feather Curling Machine Operator Name: Patient/Feather Curling Machine Operator Signature: Relationship to Patient: Clinician/Hospital Feather Curling Machine Operator Signature: Date: documented in this encounter Plan of Treatment Not on file documented as of this encounter Visit Diagnoses Not on filedocumented in this encounter Care Teams Office Helper Relationship Specialty Start Date End Date Edson Miller MD [address] [place] [address] PCP - General Internal Medicine/Pediatrics 07/21/22 07/11/24 Consuelo Segundo, GLASSWORKER 209 [facility] [address] [place] [phone] PCP - General Family Medicine 07/12/24 Salomón Frausto PA-C [address] [place] [address] Orthopedist Physician Tax Manager 05/07/22 documented as of this encounter
--- OUTSIDE RECORDS SUMMARY | 2025-07-07 11:06 | XMS_ITS | Encounter Summary ---
Author Organization [employer] ([place], [place], [place], [place], [place]) Address [address] [place] [address] Care Team Providers Care Cleaning Custodian Name Role Phone Salomón Frausto PA-C Unavailable [phone] Edson Miller MD Primary Care Provider [phone] Consuelo Segundo APRN Primary Care Provider [phone] Encounter Details Date Type Department Care Team (Late st Contact Info) Description 12/04/2020 Transcribed Document [facility] Family Medicine [address] [place] [address] ProviderGaurang MD [address] [place] [address] Social History Tobacco Use Types Packs/Day Years Used Date Smoking Tobacco: Never Assessed Sex and Gender Information Value Date Recorded Sex Assigned at Not on file Legal Sex Male 5:16 PM CDT Gender Identity Not on file Sexual Orientation Not on file documented as of this encounter Miscellaneous Notes * Cerner Conversion Note - Gaurang ProviderMD - 12/04/2020 10:48 AM CDT Pain Assessment Entered On: 12/05/2020 11:46 EDT Performed On: 12/05/2020 7:05 EDT by Indu Bansal, RN Intervention Information: oxyCODONE Performed by Loki Coffey Non Emp RN on 12/05/2020 06:05:00 EDT oxyCODONE,5mg Oral,Pain (Severe 7-10) Pain Assessment Pain Assessment : Follow-up assessment Pain Improved by Intervention : Yes Indu Bansal, RN - 12/05/2020 11:46 EDT documented in this encounter Plan of Treatment Not on file documented as of this encounter Visit Diagnoses Not on filedocumented in this encounter Care Teams Cleaning Custodian Relationship Specialty Start Date End Date Edson Miller MD [address] [place] [address] PCP - General Internal Medicine/Pediatrics 07/21/22 07/11/24 Consuelo Segundo, NATIONAL VAN TRUCK DRIVER [address] [phone] PCP - General Family Medicine 07/12/24 Salomón Frausto PA-C [address] [place] [address] Orthopedist Physician Construction Technician 05/07/22 documented as of this encounter
--- OUTSIDE RECORDS SUMMARY | 2025-07-07 11:06 | XMS_ITS | Encounter Summary ---
Author Organization [employer] ([place], [place], [place], [place], [place]) Address [address] [place] [address] Care Team Providers Care Check Scaler Name Role Phone Salomón Frausto PA-C Unavailable [phone] Edson Miller MD Primary Care Provider [phone] Consuelo Segundo APRN Primary Care Provider [phone] Encounter Details Date Type Department Care Team (Late st Contact Info) Description 12/04/2020 Transcribed Document [facility] Family Medicine [place] [address] ProviderGaurang MD [address] [place] [address] Social History Tobacco Use Types Packs/Day Years Used Date Smoking Tobacco: Never Assessed Sex and Gender Information Value Date Recorded Sex Assigned at Not on file Legal Sex Male 5:16 PM CDT Gender Identity Not on file Sexual Orientation Not on file documented as of this encounter Miscellaneous Notes * Cerner Conversion Note - Gaurang ProviderMD - 12/04/2020 4:15 PM CDT Discharge Instructions Entered On: 12/04/2020 16:16 EDT Performed On: 12/04/2020 16:15 EDT by ALTAF LIANG MD-NEU DE Instructions HWD Driving After Discharge : Do not drive, Other: No driving or operating heavy machinery until released by a physician. ALTAF LIANG MD-NEU - 12/04/2020 16:15 EDT Electronically signed by [facility]ospice Office Coordinator Cerner at 11/26/2022 6:16 PM CDT documented in this encounter Plan of Treatment Not on file documented as of this encounter Visit Diagnoses Not on filedocumented in this encounter Care Teams Check Scaler Relationship Specialty Start Date End Date Edson Miller MD [address] [place] [address] PCP - General Internal Medicine/Pediatrics 07/21/22 07/11/24 Consuelo Segundo, NUCLEAR PLANT EQUIPMENT OPERATOR 209 [facility] [address] [place] [address] PCP - General Family Medicine 07/12/24 Salomón Frausto PA-Anisha [address] [place] [address] Orthopedist Physician Physician Relations Specialist 05/07/22 documented as of this encounter
--- OUTSIDE RECORDS SUMMARY | 2025-07-07 11:06 | XMS_ITS | Clinical Summary ---
Author Organization [facility] Address [address] [place] [address] Care Team Providers Care Manager Social Media Name Role Phone Asael Bolden MD Unavailable [phone] Anup Ronquillo MD Unavailable [phone] Consuelo Segundo APRN Primary Care Provider [phone] Allergies Active Allergy Reactions Criticality Noted Date Comments Atorvastatin Unknown - Patient st ates they do not know rxn details Low 03/30/2019 Aztreonam Other - please docum ent in the comment field Low 05/13/2025 Azactam Baclofen Unknown - Patient st ates they do not know rxn details High 05/07/2023 Gabapentin Unknown - Patient st ates they do not know rxn details Low 10/22/2015 Latex Unknown - Patient st ates they do not know rxn details Low 10/22/2015 Levofloxacin Unknown - Patient st ates they do not know rxn details Low 10/22/2015 Muscatine Unknown - Patient st ates they do not know rxn details Low 03/30/2019 Metronidazole Unknown - Patient st ates they do not know rxn details Low 10/22/2015 Mometasone Unknown - Patient st ates they do not know rxn details,Other - please document in the comment field Low 10/22/2015 Mometasone Furoate Other - please docum ent in the comment field Low 08/25/2012 Asmanex Montelukast Unknown - Patient st ates they do not know rxn details Low 10/22/2015 Prednisolone Unknown - Patient st ates they do not know rxn details Low 10/22/2015 Prednisone Other - please docum ent in the comment field Low 03/25/2006 prednisone Topiramate Unknown - Patient st joselito they do not know rxn details Low 03/30/2019 Medications amLODIPine (Norvasc) 5 MG tablet Take 1 tablet (5 mg) by mouth 1 (one) time each day. 02/28/2021 Active divalproex (Depakote ER) 500 MG 24 hr tablet TAKE ONE (1) TABLET BY MOUTH EVERY MORNING AND TWO (2) TABLETS AT BEDTIME 03/02/2021 Active esomeprazole (NexIUM) [address] capsule Take by mouth 2 (two) times a day. 02/28/2021 Active ondansetron (Zofran) 4 MG tablet TAKE 1 TABLET BY MOUTH 4 TIMES DAILY NEEDED FOR NAUSEA AND VOMITING 01/22/2021 Active primidone (Mysoline) 250 MG tablet Take 250 mg by mouth 1 (one) time each day. 12/12/2020 Active promethazine (Phenergan) 25 MG tablet TAKE 1 TABLET EVERY 6-8 HOURS NEEDED. 02/20/2021 Active tamsulosin (Flomax) 0.4 MG 24 hr capsule Take 0.4 mg by mouth 1 (one) time each day. 01/29/2021 Active SUMAtriptan (Imitrex) 100 MG tablet TAKE 1 TABLET AT ONSET OF MIGRAINE HEADACHE. MAY REPEAT IN 2 HOURS IF NEEDED. DO NOT EXCEED 2 TABLETS IN 24 HOURS 04/01/2021 Active Blood Glucose Monitoring Suppl (Accu-Chek Guide Me) w/Device kit 10/27/2021 Active Accu-Chek Guide test strip USE TO TEST ONCE DAILY. 10/27/2021 Active Accu-Chek Softclix Lancets lancets USE DIRECTED ONCE DIALY. 10/27/2021 Active gabapentin (Neurontin) 600 MG tablet Take 1 tablet (600 mg) by mouth 3 (three) times a day. 06/02/2023 Active propranolol (Inderal) 10 MG tablet TAKE 1 TABLET BY MOUTH TWICE DAILY for tremors 04/03/2025 Active Apriso 0.375 g 24 hr capsule take 4 capsules by mouth every day 02/23/2025 Active rOPINIRole (Requip) 2 MG tablet Take 1 tablet by mouth nightly. 11/10/2024 Active ibuprofen 800 MG tablet Take 1 tablet by mouth 3 times a day. Active colestipol (Colestid) 1 g tablet Take 1 tablet by mouth 2 times a day. Active amantadine (Symmetrel) 100 MG capsule TAKE ONE (1) CAPSULE BY MOUTH DAILY FOR TREMORS Active sertraline (Zoloft) 50 MG tablet 05/16/2025 Active cetirizine (ZyrTEC) 10 MG tablet take 1 tablet every day by mouth for 30 days. 05/25/2025 Active Active Problems Problem Noted Date Diagnosed Date Lumbar radiculopathy 10/21/2021 Groin pain 03/30/2019 Hip pain 03/30/2019 Encounter for long-term (current) use of NSAIDs 05/12/2018 Fibromyalgia syndrome 05/03/2018 Positive JOSEFINA (antinuclear antibody) 05/03/2018 DDD (degenerative disc disease), lumbar 03/09/20 Low back pain 03/09/2018 Chronic GERD 10/22/2015 Encounters Date Type Department Care Team Description 05/27/2025 1:30 PM EDT Procedure Visit [facility] Interventional Pain Medicine [address] [place] [address] Richard Taylor MD Lumbar radiculopathy 05/27/2025 Orders Only External Location [address] [place] [address] Provider, External 05/27/2025 Travel 05/27/2025 Orders Only [facility] Interventional Pain Medicine [address] [place] [address] Richard Taylor MD 05/24/2025 Telephone [facility] Interventional Pain Medicine [address] [place] [address] Richard Taylor MD [facility] Clinical Concern/Question 05/17/2025 10:00 AM EDT Office Visit [facility] Interventional Pain Medicine [address] [place] [address] Richard Taylor MD Lumbar radiculopathy (Primary Dx) 05/17/2025 Travel 05/13/2025 9:00 AM EDT [facility] [address], [address] [place] [address] Asael Bolden MD Degeneration of intervertebral disc of lumbar region with discogenic back pain and lower extremity pain (Primary Dx); Low back pain, unspecified back pain laterality, unspecified chronicity, unspecified whether sciatica present 05/13/2025 8:11 AM EDT - 05/13/2025 11:59 PM EDT Hospital En[facility] [address], [address] [place] [address] Degeneration of intervertebral disc of lumbar region with discogenic back pain and lower extremity pain; Low back pain, unspecified back pain laterality, unspecified chronicity, unspecified whether sciatica present Discharge Disposition: Home or Self Care 05/13/2025 8:11 AM EDT - 05/13/2025 11:59 PM EDT Hospital Encounter [facility] [address], [address] [place] [address] Degeneration of intervertebral disc of lumbar region with discogenic back pain and lower extremity pain; Low back pain, unspecified back pain laterality, unspecified chronicity, unspecified whether sciatica present Discharge Disposition: Home or Self Care 05/13/2025 Travel 04/10/2025 Telephone [facility] [address], [address] [place] [address] Asael Bolden MD from Last 3 Months [...] EDT Height 167.6 cm (5' 6 ) 05/27/2025 1:06 PM EDT Body Mass Index 31.31 05/17/2025 9:12 AM EDT Plan of Treatment Upcoming Encounters Date Type Department Care Team (Late st Contact Info) Description 07/24/2025 1:00 PM EST Office Visit [facility] Interventional Pain Medicine [address] [facility] [place] [address] Richard Taylor MD [address] [facility] [address] [place] [address] Health Maintenance Due Date Last Done Comments [facility]-Depression Screening 1960 [facility]-Hepatitis C Screening 1960 [facility]-Medicare Annual Wellness (AWV) 1960 [facility]-Infant/Child/Adol SDOH Screenings 1960 [facility]- SDOH Screenings 1978 [facility]-Adult SDOH Screenings 1978 CT Colonography 2005 Colonoscopy 2005 FIT-DNA 2005 FIT 2005 FOBT 2005 Sigmoidoscopy 2005 [facility]-Colorectal Cancer Screening 2005 [facility]-Pneumococcal Vaccine: 50+ Years (1 of 1 - PCV) 2010 [facility]-Zoster Vaccines (1 of 2) 2010 [facility]-UBCAQ-65 Vaccine (1 - season) 2025 [facility]-Influenza Vaccine (#1) 2025 [facility]-DTaP,Tdap,and Td Vaccines (2 - Td or Tdap) 03/13/2034 03/13/2024, 04/22/2015, 12/07/1995 [facility]-RSV Vaccine: 60+ Years or (1 - 1-dose 75+ series) 2035 [facility]-Obesity Intervention Completed 025, 05/17/2025, 05/13/2025, Additional history exists HPV Vaccines Aged Out No longer eligi [...] on patient's age to complete this topic Procedures Procedure Name Priority Date/Time Associated Diagnosis Comments IVP NURSE PROCEDURE PROTOCOL Routine 05/27/2025 1:30 PM EDT FL NJX DX/THER SBST INTRLMNR LMBR/SAC W/IMG GDN Routine 05/27/2025 1:30 PM EDT Lumbar radiculopathy POC ULTRASOUND 05/27/2025 XR SCOLIOSIS ENTIRE SPINE 2 OR 3 VIEWS Routine 05/13/2025 8:37 AM EDT Degeneration of intervertebral disc of lumbar region with discogenic back pain and lower extremity pain Low back pain, unspecified back pain laterality, unspecified chronicity, unspecified whether sciatica present XR LUMBAR SPINE 2 OR 3 VIEWS Routine 05/13/2025 8:26 AM EDT Degeneration of intervertebral disc of lumbar region with discogenic back pain and lower extremity pain Low back pain, unspecified back pain laterality, unspecified chronicity, unspecified whether sciatica present from Last 3 Months Results * Interventional Pain Nurse Procedure Protocol (05/27/2025 1:30 PM EDT) Narrative Elva Quiñones RN - 05/27/2025 1:30 PM EDT Elva Quiñones RN 05/28/2025 7:10 AM Interventional Pain Nurse Procedure Protocol Documentation: Indications: Documentation supporting primary procedure completed by : Richard Taylor MD See the provider procedure note for performed procedure details and findings. Pre-Procedure Checklist: Currently taking anticoagulant(s)?: no Pegger Dobby Looms present?: no Additional Pre-Procedure Comments: JAZMIN Pa timeout was called immediately prior to the procedure, in accordance with [employer] policy @ 6955 Procedure details: Procedure start time:: 05/27/2025 1:48 [...] MD IN CLINIC/BEDSIDE ORDERABLES Final Result * FL NJX DX/THER SBST INTRLMNR LMBR/SAC W/IMG GDN (05/27/2025 1:30 PM EDT) Narrative Richard Taylor MD - 05/27/2025 1:30 PM EDT Richard Taylor MD 05/28/2025 7:09 AM Interlaminer Epidural - Lumbar / Sacral Performed by: Eliel Brannon, DO Authorized by: Richard Taylor MD us Richard Taylor MD IN CLINIC/BEDSIDE ORDERABLES Final Result * POC Imaging (05/27/2025) Anatomical Region Laterality Modality Pelvis Other 05/27/2025 us External Provider IMG POINT OF CARE ULTRASOUND E dited Result - Final * XR Scoliosis Entire Spine 2 or [...] Alyssa TAPIA IMG XR PROCEDURES Final Result from Last 3 Months Insurance [place]ICAID-[place] MEDICARE Care Teams Manager Social Media Relationship Specialty Start Date End Date Consuelo Segundo APRN [address] [place] [address] PCP - General 07/11/23 Asael Bolden MD [address] [place] [address] Surgeon Neurosurgery 03/16/21 Anup Ronquillo MD [address] [place] [address] Consulting Physician Neurology 10/19/21
--- OUTSIDE RECORDS SUMMARY | 2025-07-07 11:06 | XMS_ITS | Encounter Summary ---
Author Organization [facility] Address [address] [place] [address] Care Team Providers Care Plaster Helper Name Role Phone Asael Bolden MD Unavailable [phone] Anup Ronquillo MD Unavailable [phone] Kenya Antony APRN Primary Care Provider [phone] Consuelo Segundo APRN Primary Care Provider [phone] Encounter Details Date Type Department Care Team (Late st Contact Info) Description 04/06/2023 Orders Only External Location [address] [place] [address] Provider, External Social History Tobacco [...] Description 07/24/2025 1:00 PM EST Office Visit [facility] Interventional Pain Medicine [address] [place] [address] Richard Taylor MD [address] [facility] [address] [place] [address] documented as of this encounter [...] documented as of this encounter Care Teams Plaster Helper Relationship Specialty Start Date End Date Kenya Antony APRN [address] [place] [address] PCP - General 11/27/21 07/10/23 Consuelo Segundo APRN [address] [place], [place] [id number] PCP - General 07/11/23 Asael Bolden MD [address] [place] [address] Surgeon Neurosurgery 03/16/21 Anup Ronquillo MD [address] [place] [address] Consulting Physician Neurology 10/19/21 documented as of this encounter
--- OUTSIDE RECORDS SUMMARY | 2025-07-07 11:06 | XMS_ITS | Encounter Summary ---
Author Organization [employer] ([place], [place], [place], [place], [place]) Address [address] [place] [address] Care Team Providers Care Automobile Upholstery Trim Installer Name Role Phone Salomón Frausto PA-C Unavailable [phone] Edson Miller MD Primary Care Provider [phone] Consuelo Segundo APRN Primary Care Provider [phone] Encounter Details Date Type Department Care Team (Late st Contact Info) Description 12/05/2020 Transcribed Document [facility] [place] [address] [place] [address] ProviderGaurang MD [address] [place] [address] Social History Tobacco Use Types Packs/Day Years Used Date Smoking Tobacco: Never Assessed Sex and Gender Information Value Date Recorded Sex Assigned at Not on file Legal Sex Male 5:16 PM CDT Gender Identity Not on file Sexual Orientation Not on file documented as of this encounter Miscellaneous Notes * Cerner Conversion Note - Gaurang ProviderMD - 12/05/2020 12:59 PM CDT Final Discharge Planning Entered On: 12/05/2020 13:00 EDT Performed On: 12/05/2020 12:59 EDT by JEANETTE MELENDEZ, RN-Psychiatric Nursing Assistant Final Discharge Planning Discharge Arrangements : Patient [...] : Yes Discharge To Care Management : Home/Residential/Retirement or Self Care - JEANETTE MELENDEZ, DIVYA-Psychiatric Nursing Assistant - 12/05/2020 12:59 EDT Electronically signed by [facility] Conversion Oracle Database Architect Cerner at 11/26/2022 6:10 PM CDT documented in this encounter Plan of Treatment Not on file documented as of this encounter Visit Diagnoses Not on filedocumented in this encounter Care Teams Automobile Upholstery Trim Installer Relationship Specialty Start Date End Date Edson Miller MD [address] [place] [address] PCP - General Internal Medicine/Pediatrics 07/21/22 07/11/24 Consuelo Segundo, CONTINUOUS WASHER OPERATOR 209 [facility] 200 [place] [address] PCP - General Family Medicine 07/12/24 Salomón Frausto PA-C [address] [place] [address] Orthopedist Physician Suction Plate Roller Hand 05/07/22 documented as of this encounter
--- OUTSIDE RECORDS SUMMARY | 2025-07-07 11:06 | XMS_ITS | Encounter Summary ---
Author Organization [employer] ([place], [place], [place], [place], [place]) Address [address] [place] [address] Care Team Providers Care Lab Animal Technologist Name Role Phone Salomón Frausto PA-C Unavailable [phone] Edson Miller MD Primary Care Provider [phone] Consuelo Segundo APRN Primary Care Provider [phone] Encounter Details Date Type Department Care Team (Late st Contact Info) Description 12/04/2020 Transcribed Document [facility] [place] Family Medicine [address] [place] [address] ProviderGaurang MD [address] [place] [address] Social History Tobacco Use Types [...] EDT Performed On: 12/04/2020 14:32 EDT by RICK DOSHI, PT General Information, PT Visit Type, PT : [...] Assist, minimal Walking Distance : ~150ft with ASTROBIOLOGIST with noted 2x LOB with turns but [...] RICK DOSHI, PT - 12/04/2020 15:58 EDT Penitentiary Goals Mobility/Bed Mobility LTG PT Grid Goal #1 Goal #2 Activity : Supine to sit Sit to stand Assist : Independent, complete Independent, complete Date to Meet : 12/18/2020 EDT 12/18/2020 EDT Goal Status : Intial Goal Intial Goal DOSHI RICK, PT - 12/04/2020 15:58 EDT DOSHI, RICK, PT - 12/04/2020 15:58 EDT Ambulation LTG Grid Goal #1 Device : None Distance : 300ft without LOB in < 2min Assist : Independent, complete Date to Meet : 12/18/2020 EDT Goal Status : Intial Goal DOSHI, RICK, PT - 12/04/2020 15:58 EDT Treatment Note Subjective Comment : pt agreed to PTx eval Patient's Response to Treatment : Stable but c/o occasional diplopia and worsening BARRERA with positional change in upright posture Additional Objective Information : pt performed bed mobility and OOB transfer SBA but requiring ASTROBIOLOGIST for safety ambulating ~150ft for safety; noted difficulty with RLE hip flexion but able to be brought into knee/hip flexion with PROM Assessment : pt with poor RLE coordination at this time with command following but able to ambulate 150ft with ASTROBIOLOGIST; however, noted on occasional LOB with turn with stepping strategy for balance recovery Plan for Treatment : cont PTx POC DOSHI, RICK, PT - 12/04/2020 15:58 EDT Pain Assessment [...] DOSHI, RICK, PT - 12/04/2020 15:[address] [facility] PT Charges PT Eval Moderate Complexity : 1 DOSHI, RICK, PT - 12/04/2020 15:58 EDT documented in this encounter Plan of Treatment Not on file documented as of this encounter Visit Diagnoses Not on filedocumented in this encounter Care Teams Lab Animal Technologist Relationship Specialty Start Date End Date Edson Miller MD [address] [place] [address] PCP - General Internal Medicine/Pediatrics 07/21/22 07/11/24 Consuelo Segundo, GRINDING MACHINE OPERATOR AUTOMATIC 209 [facility] 200 [place] [address] PCP - General Family Medicine 07/12/24 Salomón Frausto PA-C [address] [place] [address] Orthopedist Physician Literacy Specialist 05/07/22 documented as of this encounter
--- OUTSIDE RECORDS SUMMARY | 2025-07-07 11:06 | XMS_ITS | Encounter Summary ---
Author Organization [employer] ([place], [place], [place], [place], [place]) Address [address] [place] [address] Care Team Providers Care Inhalation Therapy Teacher Name Role Phone Salomón Frausto PA-C Unavailable [phone] Edson Miller MD Primary Care Provider [phone] Consuelo Segundo APRN Primary Care Provider [phone] Encounter Details Date Type Department Care Team (Late st Contact Info) Description 12/04/2020 Transcribed Document [facility] [place] Family Medicine [address] [place] [address] ProviderGaurang MD [address] [place] [address] Social History Tobacco Use Types [...] Performed On: 12/04/2020 14:25 EDT by Danielle Perez Dietitian Nutrition Assessment Nutrition Assessment Reason : [...] - 12/04/2020 14:32 EDT Electronically signed by [facility] Conversion Snowboard Instructor Cerner at 11/26/2022 6:02 PM CDT documented in this encounter Plan of Treatment Not on file documented as of this encounter Visit Diagnoses Not on filedocumented in this encounter Care Teams Inhalation Therapy Teacher Relationship Specialty Start Date End Date Edson Miller MD [address] [place] [address] PCP - General Internal Medicine/Pediatrics 07/21/22 07/11/24 Consuelo Segundo, APPRAISAL SPECIALIST 209 [facility] 200 [place] [address] PCP - General Family Medicine 07/12/24 Salomón Frausto PA-C [address] [place] [address] Orthopedist Physician Digital Imager 05/07/22 documented as of this encounter
--- OUTSIDE RECORDS SUMMARY | 2025-07-07 11:06 | XMS_ITS | Encounter Summary ---
Author Organization [employer] ([place], [place], [place], [place], [place]) Address [address] [place] [address] Care Team Providers Care Sales Relationship Manager Name Role Phone Salomón Frausto PA-C Unavailable [phone] Edson Miller MD Primary Care Provider [phone] Consuelo Segundo APRN Primary Care Provider [phone] Encounter Details Date Type Department Care Team (Late st Contact Info) Description 12/04/2020 Transcribed Document [facility] [place] Family Medicine [address] [place] [address] ProviderGaurang MD [address] [place] [address] Social History Tobacco Use Types [...] 1960 Associated Diagnoses: None Author: BENNIE SOTOMAYOR MD-[facility] Subjective Chief complaint. still [place] headache nausea anxious Health Status Allergies: Allergic Reactions (Selected) Severity Not Documented Asmanex HFA- No reactions were documented. Atorvastatin- No reactions were documented. LevoFLOXacin- No reactions were documented. Firth- No reactions were documented. Montelukast- No reactions [...] Refill(s) fluticasone 50 mcg/inh nasal spray: 1 [place], Nasal, Daily, 16 Gram, 0 Refill(s) gabapentin [...] Bedtime fluticasone 50 mcg/inh nasal spray 1 [place], Nasal, Daily gabapentin 300 mg oral capsule [...] At risk for sleep apnea / IMO [id number] / Confirmed, Active Problems (9) Anxiety Arthritis [...] with a board 3 separate times (left roman catholic, back of head, forehead) 4 days ago [...] PPI Morbid Obesity -BMI 36 with comorbidities -Tactical Response Group Officer consulted Plan Neurology consult labs in am d/w patient and RN time spent 35 min Electronically signed by Vignesh Levin Conversion Opener Verifier Packer Customs Cerner at 11/26/2022 6:10 PM CDT documented in this encounter Plan of Treatment Not on file documented as of this encounter Visit Diagnoses Not on filedocumented in this encounter Care Teams Sales Relationship Manager Relationship Specialty Start Date End Date Edson Miller MD [address] [place] [address] PCP - General Internal Medicine/Pediatrics 07/21/22 07/11/24 Consuelo Segundo, LAY OUT WORKER 209 [facility] 200 [place] [address] PCP - General Family Medicine 07/12/24 Salomón Frausto PA-Anisha [address] [place] [address] Orthopedist Physician Premium Cancellation Clerk 05/07/22 documented as of this encounter
--- OUTSIDE RECORDS SUMMARY | 2025-07-07 11:06 | XMS_ITS | Encounter Summary ---
Author Organization [employer] ([place], [place], [place], [place], [place]) Address [address] [place] [address] Care Team Providers Care Cardiac Catheterization Technician Name Role Phone Salomón Frausto PA-C Unavailable [phone] Edson Miller MD Primary Care Provider [phone] Consuelo Segundo APRN Primary Care Provider [phone] Encounter Details Date Type Department Care Team (Late st Contact Info) Description 12/04/2020 Transcribed Document [facility] [place] [address] [place] [address] ProviderGaurang MD [address] [place] [address] Social History Tobacco Use Types [...] Indu Bansal RN - 12/04/2020 16:13 EDT Electronically signed by Lucas Levin Conversion Fiberglass Pipe Covering Supervisor Guillermina at 11/26/2022 6:10 PM CDT documented in this encounter Plan of Treatment Not on file documented as of this encounter Visit Diagnoses Not on filedocumented in this encounter Care Teams Cardiac Catheterization Technician Relationship Specialty Start Date End Date Edson Miller MD [address] [place] [address] PCP - General Internal Medicine/Pediatrics 07/21/22 07/11/24 Consuelo Segundo, BELLE 209 [facility] 200 [place] [address] PCP - General Family Medicine 07/12/24 Salomón Frausto PA-C [address] [place] [address] Orthopedist Physician Water Meter Installer 05/07/22 documented as of this encounter
--- OUTSIDE RECORDS SUMMARY | 2025-07-07 11:06 | XMS_ITS | Encounter Summary ---
Author Organization Healthcare Address [address] [place] [address] Care Team Providers Care Social Media Strategist Name Role Phone Asael Bolden MD Unavailable [phone] Anup Ronquillo MD Unavailable [phone] Consuelo Segundo APRN Primary Care Provider + [phone] Encounter Details Date Type Department Care Team (Latest Contact Info) Description 05/17/2025 Travel Social History Tobacco Use Types Packs/Day [...] Description 07/24/2025 1:00 PM EST Office Visit [facility] Interventional Pain Medicine [address] [facility] [place] [address] Richard Taylor MD [address] [facility] [address] [place] [address] documented as of this encounter Visit Diagnoses Not on filedocumented in this encounter Additional Health Concerns Assessment Noted Time A fall risk assessment has been complete d for the patient 05/17/2025 9:12 AM EDT A Body Mass Index follow-up plan has been documented for the patient 05/17/2025 9:35 AM EDT documented as of this encounter Care Teams Social Media Strategist Relationship Specialty Start Date End Date Consuelo Segundo APRN [address] [place], [place] [id number] PCP - General 07/11/23 Asael Bolden MD [address] [place] [address] Surgeon Neurosurgery 03/16/21 Anup Ronquillo MD [address] [place] [address] Consulting Physician Neurology 10/19/21 documented as of this encounter
--- OUTSIDE RECORDS SUMMARY | 2025-07-07 11:06 | XMS_ITS | Encounter Summary ---
Author Organization Healthcare Address [address] [place] [address] Care Team Providers Care Criminal Justice Faculty Name Role Phone Asael Bolden MD Unavailable [phone] Anup Ronquillo MD Unavailable [phone] Consuelo Segundo APRN Primary Care Provider + [phone] Encounter Details Date Type Department Care Team (Latest Contact Info) Description 05/13/2025 Travel Social History Tobacco Use Types Packs/Day [...] Description 07/24/2025 1:00 PM EST Office Visit [facility] Interventional Pain Medicine [address] [employer] [place] [address] Richard Taylor MD [address] [facility] [address] [place] [address] documented as of this encounter Visit Diagnoses Not on filedocumented in this encounter Additional Health Concerns Assessment Noted Time A fall risk assessment has been complete d for the patient 07/11/2023 12:00 PM EST A Body Mass Index follow-up plan has been documented for the patient 05/14/2025 11:13 AM EDT documented as of this encounter Care Teams Criminal Justice Faculty Relationship Specialty Start Date End Date Consuelo Segundo APRN [address] [place], [place] [phone] PCP - General 07/11/23 Asael Bolden MD [address] [place] [address] Surgeon Neurosurgery 03/16/21 Anup Ronquillo MD [address] [place] [address] Consulting Physician Neurology 10/19/21 documented as of this encounter
--- OUTSIDE RECORDS SUMMARY | 2025-07-07 11:06 | XMS_ITS | Encounter Summary ---
Author Organization Healthcare Address [address] [place] [address] Care Team Providers Care Space And Missile Operations Name Role Phone Marisol Hidalgo APRN Primary Care Provider [phone] Asael Bolden MD Unavailable [phone] Anup Ronquillo MD Unavailable [phone] Kenya Antony APRN Primary Care Provider [phone] Consuelo Segundo OVERLOCK WAISTLINE JOINER Primary Care Provider + [phone] Encounter Details Date Type Department Care Team (Late st Contact Info) Description 02/26/2019 Orders Only External Location [address] [place] [address] Provider, External Social History Tobacco [...] Description 07/24/2025 1:00 PM EST Office Visit [facility] Interventional Pain Medicine [address] [place] [address] Richard Taylor MD [address] [facility] [address] [place] [address] documented as of this encounter [...] on filedocumented in this encounter Care Teams Space And Missile Operations Relationship Specialty Start Date End Date Marisol Hidalgo APRN [address] [place] [address] PCP - General 12/19/20 11/26/21 Kenya Antony APRN [address] [place] [address] PCP - General 11/27/21 07/10/23 Consuelo Segundo APRN [address] [place] [id number] PCP - General 07/11/23 Asael Bolden MD [address] [place] [address] Surgeon Neurosurgery 03/16/21 Anup Ronquillo MD [address] [place] [address] Consulting Physician Neurology 10/19/21 documented as of this encounter
--- OUTSIDE RECORDS SUMMARY | 2025-07-07 11:06 | XMS_ITS | Encounter Summary ---
Author Organization [email or web address] ([place], [place], [place], [place], [place]) Address [address] [place] [address] Care Team Providers Care Drawing In Hand Name Role Phone Salomón Frausto PA-C Unavailable [phone] Edson Miller MD Primary Care Provider [phone] Consuelo Segundo APRN Primary Care Provider [phone] Encounter Details Date Type Department Care Team (Late st Contact Info) Description 12/04/2020 Transcribed Document [facility] [place] Family Medicine [address] [place] [address] ProviderGaurang MD [address] [place] [address] Social History Tobacco Use [...] 60 yo male who was admitted to [facility] on 12/04 for LOC with likely concussion [...] DEMI SUMNER, OTR/L - 12/04/2020 15:09 EDT Skilled Nursing Goals, OT Grooming LTG Grid Goal #1 [...] Pt walked 100ft with Min A via SEAT COVERS TRIMMER. Pt returned to room and returned to [...] Continued Therapy at Discharge : Yes DEMI SUMNER OTR/L - 12/04/2020 15:[address] [facility] OT Charges OT Eval Moderate Complexity : 1 DEMI SUMNER, OTR/L - 12/04/2020 15:09 EDT Electronically signed by [facility] Conversion Allergy Specialist Cerner at 11/26/2022 6:22 PM CDT documented in this encounter Plan of Treatment Not on file documented as of this encounter Visit Diagnoses Not on filedocumented in this encounter Care Teams Drawing In Hand Relationship Specialty Start Date End Date Edson Miller MD [address] [place] [address] PCP - General Internal Medicine/Pediatrics 07/21/22 07/11/24 Consuelo Segundo, GERMAN TEACHER 209 [facility] 200 [place] [address] PCP - General Family Medicine 07/12/24 Salomón Frausto PA-C [address] [place] [address] Orthopedist Physician Trademark Attorney 05/07/22 documented as of this encounter
--- OUTSIDE RECORDS SUMMARY | 2025-07-07 11:06 | XMS_ITS | Encounter Summary ---
Author Organization [employer] ([place], [place], [place], [place], [place]) Address [address] [place] [address] Care Team Providers Care Reacher Name Role Phone Salomón Frausto PA-C Unavailable [phone] Edson Miller MD Primary Care Provider [phone] Consuelo Segundo APRN Primary Care Provider [phone] Encounter Details Date Type Department Care Team (Late st Contact Info) Description 12/04/2020 Transcribed Document [facility] [place] Family Medicine [address] [place] [address] ProviderGaurang MD [address] [place] [address] Social History Tobacco Use Types Packs/Day Years Used Date Smoking Tobacco: Never Assessed Sex and Gender Information Value Date Recorded Sex Assigned at Not on file Legal Sex Male 5:16 PM CDT Gender Identity Not on file Sexual Orientation Not on file documented as of this encounter Miscellaneous Notes * Cerner Conversion Note - Gaurang ProviderMD - 12/04/2020 4:38 AM CDT Meds to Bed Enrollment Entered On: 12/04/2020 7:42 EDT Performed On: 12/04/2020 4:38 EDT by ANDRES VILLAR RPh Meds to Bed Enrollment Patient Enrollment Decision: : No/do not enroll in meds to bed program Reason for Declining Meds to Bed Program: : Prefer to use home pharmacy ANDRES VILLAR [facility] - 12/04/2020 7:42 EDT documented in this encounter Plan of Treatment Not on file documented as of this encounter Visit Diagnoses Not on filedocumented in this encounter Care Teams Reacher Relationship Specialty Start Date End Date Edson Miller MD [address] [place] [address] PCP - General Internal Medicine/Pediatrics 07/21/22 07/11/24 Consuelo Segundo, NETWORK SUPPORT MANAGER [address] [address] PCP - General Family Medicine 07/12/24 Salomón Frausto PA-C [address] [place] [address] Orthopedist Physician Yeast Supervisor 05/07/22 documented as of this encounter
--- OUTSIDE RECORDS SUMMARY | 2025-07-07 11:07 | XMS_ITS | Encounter Summary ---
Author Organization [facility] Address [address] [place] [address] Care Team Providers Care Administrator Health Care Facility Name Role Phone Asael Bolden MD Unavailable [phone] Anup Ronquillo MD Unavailable [phone] Consuelo Segundo APRN Primary Care Provider + [phone] Encounter Details Date Type Department Care Team (Late st Contact Info) Description 04/10/2025 Telephone [place] [facility] [address] [place] [address] Asael Bolden MD [address] [place] [address] Social History Tobacco Use Types [...] optimal time of day to reach caller: [phone] Note: Please do not reply to this [...] Description 07/24/2025 1:00 PM EST Office Visit [facility] Interventional Pain Medicine [address] [place] [address] Richard Taylor MD [address] [facility] [address] [place] [address] documented as of this encounter Visit Diagnoses Not on filedocumented in this encounter Additional Health Concerns Assessment Noted Time A fall risk assessment has been complete d for the patient 07/11/2023 12:00 PM EST A Body Mass Index follow-up plan has been documented for the patient 07/12/2023 12:42 PM EST documented as of this encounter Care Teams Administrator Health Care Facility Relationship Specialty Start Date End Date Consuelo Segundo APRN [address] [place] [address] PCP - General 07/11/23 Asael Bolden MD [address] [place] [address] Surgeon Neurosurgery 03/16/21 Anup Ronquillo MD [address] [place] [address] Consulting Physician Neurology 10/19/21 documented as of this encounter
--- OUTSIDE RECORDS SUMMARY | 2025-07-07 11:07 | XMS_ITS | Referral Summary ---
Author Organization [employer] ([place], [place], [place], [place], [place]) Address [address] [place] [address] Care Team Providers Care Fagot Heater Helper Name Role Phone Salomón Frausto PA-C Unavailable [phone] Consuelo Segundo APRN Primary Care Provider [phone] Allergies Active Allergy Reactions Criticality Noted Date Comments Metronidazole 07/21/2022 Levofloxacin Other (See Comments) Low 10/22/2015 [place] 07/21/2022 Prednisone 07/21/2022 Montelukast 07/21/2022 Medications amLODIPine [...] Date Markel rded Speak language other than Syriac at home Not on file 08/25/2023 Want [...] on file Medical Devices Implanted Type Area Retail Pharmacy Technician Device Identifier Shelf Expiration Date Model / Serial / Lot Iol Uv Clareon +30.0 [id number] - [id number] Implanted:Qty: 1 on 07/12/2024 by King Dey MD at [facility] IMPLANTS Right: Eye REHANA 11/15/2026 [id number] / [id number] / Iol Uv [place]on +30.0 [id number] - [id number] Implanted:Qty: 1 on 07/26/2024 by King Dey MD at [facility] IMPLANTS Left: Eye REHANA 11/03/2027 [id number] / [id number] / Insurance MEDICAID OF [place] [facility] DUAL COMPLETE MCR ADV [facility] MCR ADV DUAL COMPLETE Care Teams Fagot Heater Helper Relationship Specialty Start Date End Date Consuelo Segundo, VICE PRINCIPAL 209 [facility] 200 [place] [address] PCP - General Family Medicine 07/12/24 Salomón Fruasto PA-C [address] [place] [address] Orthopedist Physician Riding Coach 05/07/22
--- OUTSIDE RECORDS SUMMARY | 2025-07-07 11:07 | XMS_ITS | Clinical Summary ---
Author Organization [facility] ([place], [place], [place], [place], [place]) Address [address] [place] [address] Care Team Providers Care Coating Machine Operator Name Role Phone Salomón Frausto PA-C Unavailable [phone] Consuelo Segundo APRN Primary Care Provider [phone] Allergies Active Allergy Reactions Criticality Noted Date Comments Metronidazole 07/21/2022 Levofloxacin Other (See Comments) Low 10/22/2015 [place] 07/21/2022 Prednisone 07/21/2022 Montelukast 07/21/2022 Medications amLODIPine [...] Date Markel rded Speak language other than Japanese at home Not on file 08/25/2023 Want [...] Shingles Vaccine (Zoster) (1 of 2) 2010 Hemoglobin A1C 07/12/2024 Falls Risk Screening 08/08/2024 COVID-19 VACCINE (1 - season) 2025 Influenza Vaccine (#1) 2025 Tobacco Cessation Counseling and Screening (12+) 07/2007/20/2024 Respiratory Syncytial Virus (RSV) Adult or (1 - 1-dose 75+ series) 2035 Medical Devices Implanted Type Area Case Management Manager Device Identifier Shelf Expiration Date Model / Serial / Lot Iol Uv Clareon +30.0 [id number] - [id number] Implanted:Qty: 1 on 07/12/2024 by King Dey MD at [facility] IMPLANTS Right: Eye REHANA 11/15/2026 [id number] / [id number] / Iol Uv [place]on +30.0 [id number] - [id number] Implanted:Qty: 1 on 07/26/2024 by King Dey MD at [facility] IMPLANTS Left: Eye REHANA 11/03/2027 [id number] / [id number] / Insurance MEDICAID OF [place] [facility] DUAL COMPLETE [facility] D[facility] Care Teams Coating Machine Operator Relationship Specialty Start Date End Date Consuelo Segundo, TURNAROUND ENGINEER [address] [phone] PCP - General Family Medicine 07/12/24 Salomón Frausto PA-C [address] [place] [id number] Orthopedist Physician Auto Customize Painter 05/07/22
--- OUTSIDE RECORDS SUMMARY | 2025-07-07 11:07 | XMS_ITS | Encounter Summary ---
Author Organization Healthcare Address [address] [place] [address] Care Team Providers Care Cement Worker Name Role Phone Marisol Hidalgo APRN Primary Care Provider [phone] Asael Bolden MD Unavailable [phone] Anup Ronquillo MD Unavailable [phone] Kenya Antony APRN Primary Care Provider [phone] Consuelo Segundo [employer] Primary Care Provider [phone] Encounter Details Date Type Department Care Team (Late st Contact Info) Description 01/27/2018 Orders Only External Location [address] [place] [address] Provider, External Social History Tobacco [...] Description 07/24/2025 1:00 PM EST Office Visit [facility] Interventional Pain Medicine [address] [place] [address] Richard Taylor MD [address] [facility] [address] [place] [address] documented as of this encounter [...] on filedocumented in this encounter Care Teams Cement Worker Relationship Specialty Start Date End Date Marisol Hidalgo APRN [address] [place] [id number] PCP - General 12/19/20 11/26/21 Kenya Antony APRN [address] [place] [phone] PCP - General 11/27/21 07/10/23 Consuelo Segundo APRN [address] [place] [address] [phone] PCP - General 07/11/23 Asael Bolden MD [address] [place] [address] Surgeon Neurosurgery 03/16/21 Anup Ronquillo MD [address] [place] [address] Consulting Physician Neurology 10/19/21 documented as of this encounter
--- OUTSIDE RECORDS SUMMARY | 2025-07-07 11:07 | XMS_ITS | Continuity of Care Document ---
Author Organization [place] - [employer] [facility] Address [address] [place] [address] Care Team Providers Care Advanced Manufacturing Associate Name Role Phone DANIEL BARCLAY Orthopedic Surgeon NINA ROSS Corporate Relations Manager [phone] CONSUELO SEGUNDO Primary Care Provider Unavailabl e Assessment No assessment recorded. Plan of Treatment Reminders Order Date Submit Date Provider Last Modified By Organization Details Last Modified Time Details Appointments FOLLOW UP 30 2024 05:00P M Benita Segundo, BELLE Not available Not available Not available Lab HbA1c (hemoglo bin A1c), blood [address], [address] [place] [address], [phone], 04/19/2025 18:01:58 Referral None recorded . Procedures None recorded . Surgeries None recorded . Imaging None recorded . Medication Orders aspirin 81 mg tablet,d elayed release 2024 025 [facility], [address] [place] [address], [address], 05/04/2025 08:57:46 Patient TargetsNo targets recorded. Patient InstructionsNo instructions recorded. Reason for Referral None Reported. Results Created Date Observation Date Name Description Value Unit Range Abnormal Flag Note LastModifiedBy Organization Detail LastModifiedTime 03/28/2003/29/2025 FE+TI BC+FE R iron bind.cap.(TI BC) 334 ug/dL 250-45 0 normal Not Available [facility] ([facility]) [address] [place], [address], 03/29/2025 13:08:17 03/28/20 25 03/29/2025 FE+TI BC+FE R UIBC 206 ug/dL 111-34 3 normal Not Available [facility] ([facility]) [address] [place], [address], 03/29/2025 13:08:17 03/28/20 25 03/29/2025 FE+TI BC+FE R iron 128 ug/dL 38-169 normal Not Available [facility] ([facility]) [address] [place], [address], 03/29/2025 13:08:17 03/28/20 25 03/29/2025 FE+TI BC+FE R iron saturation 38 % 15-55 normal Not Available [facility] ([facility]) [address] [place], [address], 03/29/2025 13:08:17 03/28/20 25 03/29/2025 FE+TI BC+FE R ferritin 257 NG/mL 30-400 normal Not Available [facility] ([facility]) [address] [place], [address], 03/29/2025 13:08:17 03/28/20 25 03/29/2025 BNP+C K MB+D DIMER +TROP T creatine kinase (CK), mb 2.0 NG/mL 0.0-10 .4 Not Available [facility] ([facility]) [address] [place], [address], 03/29/2025 13:08:18 03/28/20 25 03/29/2025 BNP+C K MB+D DIMER +TROP T troponin T(highly sensitive) 9 NG/L 0-22 In order to disti nguis h acute eleva tions of high sensi tive Tropo song from other clini sandie condi tions , the Unive rsal Defin ition of myoca rdial infar ction stres ses clini sandie asses sment and the need for seria l measu remen ts to obser ve a rise and/o r fall above the upper limit of the refer ence inter braden. Not Available [facility] ([facility]) [address] [facility], [place], [address], 03/29/2025 13:08:18 03/28/20 25 03/29/2025 BNP+C K MB+D DIMER +TROP T B-type natriuretic peptide 19.3 pg/mL 0.0-10 0.0 Sieme ns [facility] metho dolog y Not Available [facility] ([facility]) [address] [facility], [place], [address], 03/29/2025 13:08:18 03/28/20 25 03/29/2025 BNP+C K [...] old 0.80 mg/L FEU. Not Available [facility] ([facility]) [address] [place], [address], 03/29/2025 13:08:18 03/28/20 25 03/29/2025 TSH+F REE T4 TSH 4.150 uIU/m L 0.450- 4.500 normal Not Available [facility] ([facility]) [address] [place], [address], 03/29/2025 13:08:18 03/28/20 25 03/29/2025 TSH+F REE T4 T4,free(dire ct) 1.00 NG/dL 0.82-1 .77 normal Not Available [facility] ([facility]) [address] [place], [address], 03/29/2025 13:08:18 03/28/20 25 03/29/2025 CBC WITH DIFFE RENTI AL/PL ATELE T WBC 5.0 x10e3 /uL 3.4-10 .8 normal Not Available [facility] ([facility]) [address] [place], [address], 03/29/2025 13:08:19 03/28/20 25 03/29/2025 CBC WITH DIFFE RENTI AL/PL ATELE T RBC 5.26 x10e6 /uL 4.14-5 .80 normal Not Available [facility] ([facility]) [address] [place], [address], 03/29/2025 13:08:19 03/28/20 25 03/29/2025 CBC WITH DIFFE RENTI AL/PL ATELE T hemoglobin 16.5 g/dL 13.0-1 7.7 normal Not Available [facility] ([facility]) [address] [facility], [place], [address], 03/29/2025 13:08:19 03/28/20 25 03/29/2025 CBC WITH DIFFE RENTI AL/PL ATELE T hematocrit 49.2 % 37.5-5 1.0 normal Not Available [facility] ([facility]) [address] [facility], [place], [address], 03/29/2025 13:08:19 03/28/20 25 03/29/2025 CBC WITH DIFFE RENTI AL/PL ATELE T MCV 94 fL 79-97 normal Not Available [facility] ([facility]) [address] [facility], [place], [address], 03/29/2025 13:08:19 03/28/20 25 03/29/2025 CBC WITH DIFFE RENTI AL/PL ATELE T MCH 31.4 pg 26.6-3 3.0 normal Not Available [facility] ([facility]) [address] [facility], [place], [address], 03/29/2025 13:08:19 03/28/20 25 03/29/2025 CBC WITH DIFFE RENTI AL/PL ATELE T MCHC 33.5 g/dL 31.5-3 5.7 normal Not Available [facility] ([facility]) [address] [facility], [place], [address], 03/29/2025 13:08:19 03/28/20 25 03/29/2025 CBC WITH DIFFE RENTI AL/PL ATELE T RDW 12.7 % 11.6-1 5.4 Not Available [facility] ([facility]) [address] [facility], [place], [address], 03/29/2025 13:08:19 03/28/20 25 03/29/2025 CBC WITH DIFFE RENTI AL/PL ATELE T platelets 177 x10e3 /uL 150-45 0 normal Not Available [facility] ([facility]) [address] [facility], [place], [address], 03/29/2025 13:08:19 03/28/20 25 03/29/2025 CBC WITH DIFFE RENTI AL/PL ATELE T neutrophils 45 % not estab. normal Not Available [facility] ([facility]) [address] [facility], [place], [address], 03/29/2025 13:08:19 03/28/20 25 03/29/2025 CBC WITH DIFFE RENTI AL/PL ATELE T lymphs 38 % not estab. normal Not Available [facility] ([facility]) [address] [facility], [place], [address], 03/29/2025 13:08:19 03/28/20 25 03/29/2025 CBC WITH DIFFE RENTI AL/PL ATELE T monocytes 11 % not estab. normal Not Available [facility] ([facility]) [address] [facility], [place], [address], 03/29/2025 13:08:19 03/28/20 25 03/29/2025 CBC WITH DIFFE RENTI AL/PL ATELE T eos 5 % not estab. normal Not Available [facility] ([facility]) [address] [facility], [place], [address], 03/29/2025 13:08:19 03/28/20 25 03/29/2025 CBC WITH DIFFE RENTI AL/PL ATELE T basos 1 % not estab. normal Not Available [facility] ([facility]) [address] [facility], [place], [address], 03/29/2025 13:08:19 03/28/20 25 03/29/2025 CBC WITH DIFFE RENTI AL/PL ATELE T immature cells COLORER MACHINE Not Available [facility] ([facility]) [address] [facility], [place], [address], 03/29/2025 13:08:19 03/28/20 25 03/29/2025 CBC WITH DIFFE RENTI AL/PL ATELE T neutrophils (absolute) 2.3 x10e3 /uL 1.4-7. 0 normal Not Available [facility] ([facility]) [address] [place], [address], 03/29/2025 13:08:19 03/28/20 25 03/29/2025 CBC WITH DIFFE RENTI AL/PL ATELE T lymphs (absolute) 1.9 x10e3 /uL 0.7-3. 1 normal Not Available [facility] ([facility]) [address] [place], [address], 03/29/2025 13:08:19 03/28/20 25 03/29/2025 CBC WITH DIFFE RENTI AL/PL ATELE T monocytes(ab solute) 0.5 x10e3 /uL 0.1-0. 9 normal Not Available [facility] ([facility]) [address] [place], [address], 03/29/2025 13:08:19 03/28/20 25 03/29/2025 CBC WITH DIFFE RENTI AL/PL ATELE T eos (absolute) 0.2 x10e3 /uL 0.0-0. 4 normal Not Available [facility] ([facility]) [address] [place], [address], 03/29/2025 13:08:19 03/28/20 25 03/29/2025 CBC WITH DIFFE RENTI AL/PL ATELE T baso (absolute) 0.0 x10e3 /uL 0.0-0. 2 normal Not Available [facility] ([facility]) [address] [place], [address], 03/29/2025 13:08:19 03/28/20 25 03/29/2025 CBC WITH DIFFE RENTI AL/PL ATELE T immature granulocytes 0 % not estab. Not Available [facility] ([facility]) [address] [place], [address], 03/29/2025 13:08:19 03/28/20 25 03/29/2025 CBC WITH DIFFE RENTI AL/PL ATELE T immature grans (abs) 0.0 x10e3 /uL 0.0-0. 1 Not Available [facility] ([facility]) [address] [facility], [place], [address], 03/29/2025 13:08:19 03/28/20 25 03/29/2025 CBC WITH DIFFE RENTI AL/PL ATELE T NRBC COLORER MACHINE Not Available [facility] ([facility]) [address] [facility], [place], [address], 03/29/2025 13:08:19 03/28/20 25 03/29/2025 CBC WITH DIFFE RENTI AL/PL ATELE T hematology comments: COLORER MACHINE Not Available [facility] ([facility]) [address] [facility], [place], [address], 03/29/2025 13:08:19 03/28/20 25 03/29/2025 COMP. METAB OLIC PANEL (14) glucose 106 mg/dL 70-99 above high normal Not Available [facility] ([facility]) [address] [facility], [place], [address], 03/29/2025 13:08:19 03/28/20 25 03/29/2025 COMP. METAB OLIC PANEL (14) BUN 15 mg/dL 8-27 normal Not Available [facility] ([facility]) [address] [facility], [place], [address], 03/29/2025 13:08:19 03/28/20 25 03/29/2025 COMP. METAB OLIC PANEL (14) creatinine 0.98 mg/dL 0.76-1 .27 normal Not Available [facility] ([facility]) [address] [facility], [place], [address], 03/29/2025 13:08:19 03/28/20 25 03/29/2025 COMP. METAB OLIC PANEL (14) eGFR 86 mL/mi n/1.7 3 >59 normal Not Available [facility] ([facility]) [address] [place], [address], 03/29/2025 13:08:19 03/28/20 25 03/29/2025 COMP. METAB OLIC PANEL (14) BUN/creatini ne ratio 15 10-24 normal Not Available [facility] ([facility]) [address] [place], [address], 03/29/2025 13:08:19 03/28/20 25 03/29/2025 COMP. METAB OLIC PANEL (14) sodium 140 mmol/ L 134-14 4 normal Not Available [facility] ([facility]) [address] [facility], [place], [address], 03/29/2025 13:08:19 03/28/20 25 03/29/2025 COMP. METAB OLIC PANEL (14) potassium 4.3 mmol/ L 3.5-5. 2 normal Not Available [facility] ([facility]) [address] [place], [address], 03/29/2025 13:08:19 03/28/20 25 03/29/2025 COMP. METAB OLIC PANEL (14) chloride 103 mmol/ L 96-106 normal Not Available [facility] ([facility]) [address] [place], [address], 03/29/2025 13:08:19 03/28/20 25 03/29/2025 COMP. METAB OLIC PANEL (14) carbon dioxide, total 21 mmol/ L 20-29 normal Not Available [facility] ([facility]) [address] [place], [address], 03/29/2025 13:08:19 03/28/20 25 03/29/2025 COMP. METAB OLIC PANEL (14) calcium 9.7 mg/dL 8.6-10 .2 normal Not Available [facility] ([facility]) [address] [facility] [place], [address], 03/29/2025 13:08:19 03/28/20 25 03/29/2025 COMP. METAB OLIC PANEL (14) protein, total 6.9 g/dL 6.0-8. 5 normal Not Available [facility] ([facility]) [address] [facility] [place], [address], 03/29/2025 13:08:19 03/28/20 25 03/29/2025 COMP. METAB OLIC PANEL (14) albumin 4.5 g/dL 3.9-4. 9 normal Not Available [facility] ([facility]) [address] [place], [address], 03/29/2025 13:08:19 03/28/20 25 03/29/2025 COMP. METAB OLIC PANEL (14) globulin, total 2.4 g/dL 1.5-4. 5 Not Available [facility] ([facility]) [address] [facility] [place], [address], 03/29/2025 13:08:19 03/28/20 25 03/29/2025 COMP. METAB OLIC PANEL (14) bilirubin, total 0.6 mg/dL 0.0-1. 2 normal Not Available [facility] ([facility]) [address] [facility] [place], [address], 03/29/2025 13:08:19 03/28/20 25 03/29/2025 COMP. METAB OLIC PANEL (14) alkaline phosphatase 122 IU/L 44-121 above high normal Not Available [facility] ([facility]) [address] [facility] [place], [address], 03/29/2025 13:08:19 03/28/20 25 03/29/2025 COMP. METAB OLIC PANEL (14) AST (SGOT) 19 IU/L 0-40 normal Not Available [facility] ([facility]) [address] [facility], [place], [address], 03/29/2025 13:08:19 03/28/20 25 03/29/2025 COMP. METAB OLIC PANEL (14) ALT (SGPT) 14 IU/L 0-44 normal Not Available [facility] ([facility]) [address] [facility], [place], [address], 03/29/2025 13:08:19 03/28/20 25 03/29/2025 LIPID PANEL cholesterol, total 154 mg/dL 100-19 9 normal Not Available [facility] ([facility]) [address] [place], [address], 03/29/2025 13:08:20 03/28/20 25 03/29/2025 LIPID PANEL triglyceride s 131 mg/dL 0-149 normal Not Available [facility] ([facility]) [address] [place], [address], 03/29/2025 13:08:20 03/28/20 25 03/29/2025 LIPID PANEL HDL cholesterol 44 mg/dL >39 normal Not Available [facility] ([facility]) [address] [place], [address], 03/29/2025 13:08:20 03/28/20 25 03/29/2025 LIPID PANEL VLDL cholesterol sandie 23 mg/dL 5-40 Not Available [facility] ([facility]) [address] [place], [address], 03/29/2025 13:08:20 03/28/20 25 03/29/2025 LIPID PANEL LDL chol calc ([facility]) 87 mg/dL 0-99 Not Available [facility] ([facility]) [address] [place], [address], 03/29/2025 13:08:20 03/28/20 25 03/29/2025 LIPID PANEL LDL calc comment: COLORER MACHINE Not Available [facility] ([facility]) [address] [facility], [place], [address], 03/29/2025 13:08:20 03/28/20 25 03/29/2025 VITAM IN B12 AND FOLAT E vitamin B12 360 pg/mL 232-12 45 normal Not Available [facility] ([facility]) [address] [facility], [place], [address], 03/29/2025 13:08:21 03/28/20 25 03/29/2025 VITAM IN B12 AND FOLAT E folate (folic acid), serum 5.1 NG/mL >3.0 normal A serum folat e brian ntrat ion of less than 3.1 ng/mL is consi dered to repre sent clini sandie defic iency . Not Available [facility] ([facility]) [address] [facility], [place], [address], 03/29/2025 13:08:21 03/28/20 25 03/29/2025 VITAM IN [...] 1. IOM (Inst itute of Medic ine). 2010. Dieta ry refer ence alec es for calci um and D. Douglas mofftet [place]: The Natio nal [facility] Press . 2. [place], Amy esquivel [place], Kylah off-F errar i BARRERA, et al. Evalu ation , treat ment, and preve ntion of vitam in D defic iency : an Endoc rine Socie ty clini sandie pract ice guide line. JCEM. 2010; 96(7) :1911 -30. Not Available [facility] ([facility]) [address] [facility], [place], [address], 03/29/2025 13:08:21 03/28/20 25 03/29/2025 MAGNE SIUM magnesium 2.3 mg/dL 1.6-2. 3 normal Not Available [facility] ([facility]) [address] [facility], [place], [address], 03/29/2025 13:08:22 04/19/20 25 04/19/2025 HbA1c (hemo globi n A1c), blood HbA1c 6.5 Not Available [address], [address], 04/19/2025 16:41:26 04/03/20 25 04/03/2025 MRI, lumba r spine , w/o contr ast [facility] [address] [place] [address] Phone: Fax: Name: KUSH MATA Exam Date: 025 : 960 Age 64 years Gender : M Access ion: [id number] Physic cassidy: PIETER SEGUNDO Facili ty: [facility] Facili ty HSV: Outpat ient Exam: MRI [...] 04-03 10:32: 50 Thank you for referr KUSH Kirkpatrick to Katerin omayra [facility]. Legall y authen ticate d by SRINIVAS RIVER MD 04-03 10:32: 50 CC'ed Logic: Orderi ng Provid er: YESSICA ARROYO CC Provid er: YESSICA ARROYO Attend ing Provid er: YESSICA ARROYO Referr ing Provid er: YESSICA ARROYO Admitt ing Provid er: YESSICA ARROYO [email or web address] [facility] (Radiology) [address] , [place], [address], 04/12/2025 12:07:25 04/04/20 25 03/22/2025 CT, chest , w/ contr ast No observ ation record ed. [email or web address] [facility] [address] [place], [address], 04/05/2025 11:21:39 04/18/2004/18/2025 CT, abdom en, w/o contr ast No observ ation record ed. [email or web address], [place], [address], 06/28/2025 15:54:07 Result Notes None recorded. Problems Name Problem SNOMED Code Status Onset Date Resolution Date Notes Provider Name and Address Organization Details Recorded Time Type 2 diabetes mellitus 20991174 Active 2021 Kimmy hsu, [employer] 5 16:03:13 Neuropathy 224349841 Active 2021 MORENO hsu, [employer] 2 10:11:01 Essential hypertensio n 88606514 Active 2022 NIKO NAVA [address], [address], [employer] 3 16:49:00 COVID-19 992926744 Active 2022 NIKO NAVA [address], [address], [employer] 3 08:58:30 Mixed hyperlipide kiet 166371369 Active 2022 NIKO NAVA [address], [address], [employer] 3 12:18:26 Benign prostatic hyperplasia 673695237 Active 2023 NIKO NAVA [address], [address], [employer] 4 11:19:02 Neuropathy due to type 2 diabetes mellitus 5495103792936 06 Active 2023 NIKO NAVA [address], [address], [employer] 4 16:41:35 Hemorrhoids 24877004 Active 2023 NIKO NAVA [address], [address], [employer] 4 16:45:17 Increased frequency of urination 282348103 Active 2023 NIKO NAVA [address], [address], [employer] 4 16:45:44 Lesion of skin of right ear 3560025743036 9106 Active 2023 NIKO NAVA [address], [address], [employer] 4 16:41:04 Skin lesion 98995496 Active 2023 NIKO NAVA [address], [address], [employer] 4 16:41:16 Cough 45962317 Active 2023 Gerda Reed NP [address] [place] [address], [address], [employer] 5 10:27:23 Slurred speech 966210284 Active 2023 Anca Donaldson NP [address] [place] [address], [address], [place] [employer] 4 12:56:59 Headache 87012343 Active 2023 Anca Donaldson NP [address] [place] [address], [address], [place] [employer] 4 12:57:08 Nausea and vomiting 48796183 Active 2023 Anca Donaldson, [employer] [address] [place] [address], [address], [place] [employer] 4 12:57:13 Closed injury of head 922934021354 Active 2023 Anca Donaldson, KAYLEIGH [address] [place] [address], [address], [place] [employer] 4 12:57:28 Fever 915127373 Active 2023 Kimmy hsu, [employer] 4 17:00:08 Type 2 diabetes mellitus without complicatio n 053642962 Active 2023 Kimmy hsu, [employer] 4 16:46:21 Hyperlipide kiet 49615597 Active 2024 Kimmy Berman null, [employer] 5 12:16:58 Diabetes mellitus 20579892 Active 2024 Kimmy hsu, [employer] 5 16:41:09 Upper respiratory infection 69974041 Active 2024 Gerda Reed NP [address] [place] [address], [address], [employer] 5 10:43:00 Nasal congestion 53568841 Active 2024 MICHAEL MCCOLLUM, KAYLEIGH [address] [place] [address], [address], [employer] 5 11:00:47 Acute left otitis media 966660233 Active 2024 MICHAEL MCCOLLUM, [employer] [address] [place] [address], [address], [employer] 5 11:01:12 Notes:Some problems listed i n Documents: #[id number], #[id number] could not be added to this patient's chart. Please review these documents and add these problems to the patient's chart manually as needed. Problem Notes None recorded. Procedures Surgical History Date Name Laterality Status Provider Name and Address Organization Details Recorded Time 4 extraction of cataract completed Kimmy Turnery [employer] 07/17/2024 16:41:15 Orthopedic Surgery completed MORENO MARTINEZ [employer]. 07/20/2022 09:59:44 Imaging Results None recorded. Procedure Notes None recorded. Medical Equipment None Reported. Allergies Allergen ID Allergen Name Allergen Category Reaction Reaction Severity Criticality Documentation Date Start Date Code Code System Note Provider Name and Address Organization Details Recorded Time 30737 Levaquin medicatio n Not available Not available Not available 07/20/2022 65551 2 RxNorm MORENO MARTINEZ [employer], [employer] 2 11:30:32 23242 Flagyl medicatio n Not available Not available Not available 07/20/202210266 6 RxNorm MOREON hsu, [employer] 2 11:30:41 80138 lithium Not available Not available Not available Not available 07/20/2022 6448 RxNorm MORENO MARTINEZ [employer], [employer] 2 11:30:46 50771 prednison e medicatio n Not available Not available Not available 07/20/2022 8640 RxNorm MORENO MARTINEZ [employer], [employer] 2 11:30:59 06906 Singulair medicatio n Not available Not available Not available 07/07/2023 15971 9 RxNorm KYUNG MARLENI [employer], [employer] 3 16:31:08 87515 Asmanex medicatio n Not available Not available Not available 07/07/2023 78179 2 RxNorm KYUNG YEPEZ [employer], [employer] 3 16:31:22 28637 Gralise medicatio n Not available Not available Not available 07/01/20252012 63023 76 RxNorm Grali se Not Available [employer] - prod 16:30:42 30021 Lipitor medicatio n Not available Not available Not available 07/01/2025 79987 5 RxNorm Not Available [employer] - [employer] - prod 16:30:42 00811 baclofen medicatio n vomiting severe high 07/01/20252022 1292 RxNorm Tia hsu [place] [employer]. 10:26:35 79302 atorvasta tin calcium medicatio n Not available Not available low 07/01/20252018 73979 RxNorm unrec ogniz ed react ion (text : Unkno wn - Patie nt state s they do not know rxn detai ls, code: 18179 5006) (from exter nal sourc e) Not Available [employer] - [employer] - prod 16:31:25 27418 aztreonam medicatio n other Not available low 07/01/20252024 1272 RxNorm Azact am Not Available [employer] - [employer] - prod 16:31:25 57524 gabapenti n medicatio n Not available Not available low 07/01/20252015 47944 RxNorm unrec ogniz ed react ion (text : Unkno wn - Patie nt state s they do not know rxn detai ls, code: 54747 5006) (from exter nal sourc e) Not Available [employer] - External [employer] - prod 16:31:25 99357 Latex (substanc e) environme nt,medica tion Not available Not available low 07/01/20252015 45078 8007 SNOMED unrec ogniz ed react ion (text : Unkno wn - Patie nt state s they do not know rxn detai ls, code: 97758 5006) (from exter nal sourc e) Not Available [employer]ake - [employer] - prod 16:31:25 76840 levofloxa val medicatio n Not available Not available low 07/01/20252015 65771 RxNorm unrec ogniz ed react ion (text : Unkno wn - Patie nt state s they do not know rxn detai ls, code: 37422 5006) ([facility]) Not Available [employer] - External Data [employer] - prod 16:31:25 14567 metronida zole medicatio n Not available Not available low 07/01/20252015 6922 RxNorm unrec ogniz ed react ion (text : Unkno wn - Patie nt state s they do not know rxn detai ls, code: 98393 5006) ([facility]) Not Available [employer] - External Data [employer] - prod 16:31:25 59511 mometason e furoate medicatio n other Not available low 07/01/20252015 06808 RxNorm unrec ogniz ed react ion (text : Unkno wn - Patie nt state s they do not know rxn detai ls, code: 72818 5006) (from [facility]) Not Available blake - External Data Service - prod 16:31:[address] medicatio n Not available Not available low 07/01/20252015 24035 RxNorm unrec ogniz ed react ion (text : Unkno wn - Patie nt state s they do not know rxn detai ls, code: 65093 5006) (from [facility]) Not Available blake - External Data Service - prod 16:31:25 59432 prednisol one medicatio n Not available Not available low 07/01/20252015 8638 RxNorm unrec ogniz ed react ion (text : Unkno wn - Patie nt state s they do not know rxn detai ls, code: 07719 5006) (from [facility]) Not Available blake - External Data Service - prod 16:31:25 49229 atorvasta tin medicatio n Not available Not available Not available 07/01/2025 04715 RxNorm unrec ogniz ed react ion (text : Adver se react ion to subst ance, code: 08996 0009) (from [facility]) Not Available blake - External Data Service - prod 16:31:33 41731 Azactam medicatio n Not available Not available Not available 07/01/2025 88326 1 RxNorm Not Available blake - External Data Service - prod 16:31:40 66997 topiramat e medicatio n Not available Not available Not available 07/01/20252021 32255 RxNorm Not Available blake - External Data Service - [facility] 16:31:40 Medications Name Sig Start Date Stop [...] completed Not Available Not Available Not Available [employer] Ultra Test strips use to test 2-3 [...] procedur e. DO not drive, must have home delivery driver present FOR procedur e active Not [...] propionate 50 mcg/actuat ion nasal spray,susp ension [place] 1 spray every day by intranas al [...] Updated DateTime 5 167.64 cm 31 kg/m2 37798.7 4 g 68 /min 94 % 134/84 mm[Hg] Kimmy [employer]. 5 16:38:45 Social History Question Answer Notes LastModified by Organizat ion Details LastModified Time Tobacco Smoking Status Former Smoker [facility], [facility], [employer] 07/20/2022 10:12:00 Do You Have An Advance Directive? No Information not available 07/20/2022 Is Your Home Air Conditioned? Yes [email or web address] Information not available 07/20/2022 Are You Blind Or Do You Have Difficulty Seeing? Yes [email or web address] Information not available 07/20/2022 What Is Your Level Of Caffeine Consumption? Occasional [email or web address] Information not available 12/17/2022 Are You A Caregiver? No [email or web address] Information not available 07/20/2022 In The 14 Days Before Symptom Onset, Have You Had Close Contact With A Laboratory-confir med COVID-19 While That Case Was Ill? No [email or web address] Information not available 07/20/2022 In The 14 Days Before Symptom Onset, Have You Had Close Contact With A Person Who Is Under Investigation For COVID-19 While That Person Was Ill? No [email or web address] Information not available 07/20/2022 Have You Been To An Area Known To Be High Risk For COVID-19? No [email or web address] Information not available 07/20/2022 Are You Deaf Or Do You Have Serious Difficulty Hearing? No [email or web address] Information not available 07/20/2022 What Type Of Diet Are You Following? REGULAR [email or web address] Information not available 07/20/2022 How Many Days Of Moderate To Strenuous Exercise, Like A Brisk Walk, Did You Do In The Last 7 Days? 3 [email or web address] Information not available 07/20/2022 Have There Been Any Changes To Your Family Or Social Situation? No Information no t available 07/20/2022 When Did You Quit Smoking? 16+yearssincel astcigarette ihfmkfsn01 Information not available 07/20/2022 Which Of Your Hands Is Dominant? Right [email or web address] Information not available 07/20/2022 What Is Your Home Situation? Other [email or web address] Information not available 07/20/2022 Do You Have A Medical Power Of Motel Manager? No [email or web address] Information not available 07/20/2022 What Was The Date Of Your Most Recent Tobacco Screening? 07/05/2025 [email or web address] Information not available 07/05/2025 What Is Your Current Pack Years? 10packyears [email or web address] Information not available 07/20/2022 What Is Your Relationship Status? [email or web address] Information not available 07/20/2022 Do You Use Your Seat Belt Or Car Seat Routinely? Yes [email or web address] Information not available 07/20/2022 Do You Have Any Siblings? 8 [email or web address] Information not available 07/20/2022 Do You Have Smoke And Carbon Monoxide Detectors In Your Home? Yes [email or web address] Information not available 07/20/2022 Are You Passively Exposed To Smoke? No [email or web address] Information no t available 07/20/2022 Are There Any Smokers In Your House? No [email or web address] Information not available 07/20/2022 Have You Recently Traveled Abroad? No [email or web address] Information not available 07/20/2022 Do You Have Difficulty Walking Or Climbing Stairs? Yes bxqudgsj87 Information not available 07/20/2022 Are You Currently In School? No [email or web address] Information not available 07/20/2022 Do You Have Any Dietary Restrictions? No osoedhnm32 Information not available 07/20/2022 Sex: Male Functional Status Question Answer Note LastModified by Photo Rankr ion Details LastModified Time Do you use any illicit or recreational drugs? No [email or web address] Information not available 07/20/2022 What is your level of alcohol consumption? None [email or web address] Information not available 07/20/2022 Are you currently employed? No yjdsfmui43 Information not available 07/20/2022 Do you have transportation difficulties? No fwstzirz80 Information not available 07/20/2022 Are you able to walk independently without assistance or assistive devices? YESWOREST Information not available 07/20/2022 Do you have difficulty doing errands alone? No [email or web address] Information not available 07/20/2022 Are you able to care for yourself independently? No [email or web address] Information not available 07/20/2022 Do you have difficulty dressing, bathing, grooming, or toileting? No [email or web address] Information not available 07/20/2022 What is your exercise level? Occasional [email or web address] Information not available 07/20/2022 Mental Status Question Answer Note LastModified by Organizat ion Details LastModified Time Do you feel stressed (tense, restless, nervous, or anxious, or unable to sleep at night)? UC59086-5 [email or web address] Information not available 07/20/2022 Do you have difficulty concentrating, remembering or making decisions? Yes [email or web address] Information no t available 07/20/2022 Family History Relationship Description Onset Age of this Age Resolved Age Notes LastModified by Organization Details LastModified Time Father Heart disease [email or web address] Not available 07/20 09:59:43 Father Hypertensive disorder [email or web address] Not available 07/20 09:59:43 Mother Malignant neoplasm of breast Not available 07/20 09:59:43 Medical History Condition Response Emergency room visit since last appointm ent. N Acid Reflux (GERD) Y Hospitalizations N ADD/ADHD N Immunizations Vaccine Type Date Status Note Provider Name and Address Organization Details Recorded Time zoster recombinant 04/17/20 24 cancelled patient objection Consuelo Segundo APRN [address] [place] [address], [phone], [facility] [employer] 04/17/2024 18:23:31 Td (adult), 2 Lf tetanus toxoid, preservative free, adsorbed 12/06/18 96 completed [facility] MARTINEZ [employer], [employer] 07/20/2022 10:07:13 Td(adult) unspecified formulation 04/22/20 15 completed [facility], [employer] 07/20/2022 10:07:13 Tdap 03/13/20 24 completed Not Available [facility] 07/05/2025 10:24:44 Past Encounters Encounter ID Performer Location Encounter Start Date Encounter Closed Date Diagnosis/Indication Diagnosis SNOMED-CT Code Diagnosis ICD10 Code Diagnosis IMO Codes Diagnosis Note [id number] Consuelo Segundo APRN [address] [address] 03/28/2025 09:35:17 03/28/2025 10:41:06 Fatigue 49541948 R53.83 7932054 Mixed hyperlipidemia 267 005194 E78.2 93869 Vitamin D deficiency 347 77820 E55.9 82512 Cobalamin deficiency 190 175609 E53.8 82662 Iron defic iency anemia 44839069 D50.9 94273656 Chest pain 31111266 R07. 9 25913608 Acute left otitis media 532696556 H66.92 0053570 Prolapsed lumbar intervertebral disc 463879637 M51.26 12052096 Body mass index 30+ - obesity 417250105 Z68.31 507385 [id number] Consuelo Segundo APRN [address] [address] 04/19/2025 16:27:30 04/23/2025 10:50:49 Diabetes mellitus 19733086 E11.9 96945 Chest pain 57658880 R07. 9 Diverticular disease 397 495375 K57.90 455250 Body mass index 30+ - obesity 816227694 Z68.31 500605 Health Concerns Section Related Observation LastModified by Organization Detai ls LastModified Time None Recorded Concern Status LastModified by Organization Details LastModified Time None Recorded Payers Encounter Date Sequence Insurance Name Policy Number Policy Garcia Covered Member ID Garcia Member ID Guarantor Name 04/19/2025 2 MEDICAID-[facility] CHOICES - FFS/TRADITION AL Kush Mata [id number] Kush Mata 04/19/2025 1 [facility] (MEDICARE REPLACEMENT/A DVANTAGE - PPO) DANIELA Mata [id number] Kush Mata Notes Date Note Type Note Provider Name and Address Organization Details Recorded Time 04/19/2025 text/html DiabetesReported by Patient pt here today for medication refills. pt states hes doing well on current medication regime. A1C 6.5, 5.4 at last visit. [email or web address] was d/c by gastric doc. pt to continue diabetic diet, current medication regime and exercise. pt states that he went to ER last night and was dx with diverticulitis. states that he was prescribed augmentin. states that his lower abd is still having some pain but he feels a little better. no note in chart yet. Consuelo Segundo APRN [address] [place] [address], [place], [address], [place] [facility] [employer] [facility] 04/19/2025 17:48:50
[2025-07-07 11:14] LABS: Hematocrit 45.3 % (42.0-52.0); Hemoglobin 15.4 g/dL (14.1-18.0); Immature Granulocytes % 0.2 %; Mean Corpuscular HGB Conc 34.0 g/dL (31.8-35.4); Mean Corpuscular Hemoglobin 31.3 pg (27.0-31.2); Mean Corpuscular Volume 92.1 fl (80-94); Nucleated Red Blood Cells % 0 %; Platelet Count 143 K/mm3 (142-424); Red Blood Count 4.92 M/mm3 (4.60-6.20); Red Cell Distribution Width-SD 43.1 fL; White Blood Count 4.4 K/mm3 (4.8-10.8)
[2025-07-07 11:18] LABS: Alanine Aminotransferase 43 U/L (12-78); Albumin Level 4.3 g/dl (3.5-5.0); Albumin/Globulin Ratio 1.4 (1.1-1.8); Alkaline Phosphatase 110 U/L (38-126); Anion Gap 11.0 mEq/L (5-15); Aspartate Amino Transferase 48 U/L (17-59); Bilirubin,Total 1.0 mg/dl (0.2-1.3); Blood Urea Nitrogen 11 mg/dl (9-20); Calcium 9.0 mg/dl (8.4-10.2); Carbon Dioxide 25 mmol/L (22.0-30.0); Chloride 102 mmol/L (98-107); Creatinine Clearance Estimated 94 mL/min (50-200); Creatinine,Serum 0.90 mg/dl (0.66-1.25); Estimated Glomerular Filt Rate 85 ml/min (>60); GFR (African American) 102 ML/MIN (>60); Globulin 3.0 g/dL (1.3-3.2); Glucose 239 mg/dl (74-100); Potassium 4.0 mmoL/L (3.5-5.1); Sodium 134 mmol/L (136-145); Total Protein,Serum 7.3 g/dl (6.3-8.2)
[2025-07-07 11:30] VITALS: BP 114/68; PULSE 57; O2SAT 95
--- NOTE | 2025-07-07 11:31 | XR_ITS ---
PROCEDURE INFORMATION: Exam: XR Chest Exam date and time: 07/07/2025 11:33 AM Age: 65 years old Clinical indication: Cough and shortness of breath TECHNIQUE: Imaging protocol: Radiologic exam of the chest. Views: 2 views. COMPARISON: CT ANGIO NECK 10/15/2024 3:57 PM FINDINGS: Lungs: Unremarkable. No consolidation. Pleural spaces: Unremarkable. No pleural effusion. No pneumothorax. Heart/Mediastinum: Unremarkable. No cardiomegaly. Bones/joints: Degenerative changes of the spine. Degenerative changes of the spine. Organs: Cholecystectomy. IMPRESSION: No acute findings.
[2025-07-07 12:00] VITALS: BP 114/66; PULSE 52; O2SAT 95
[2025-07-07 12:31] VITALS: BP 125/82; PULSE 53; O2SAT 97
[2025-07-07 13:12] VITALS: BP 122/74; PULSE 54; RESP 16; TEMP 36.7; O2SAT 96
== END 2025-07-07 13:13 | disposition home or self-care (01) ==
PROVIDERS: Emergency Provider Student in an Organized Health Care Education/Training Program; PCP Nurse Practitioner
DX: R09.1 Pleurisy (principal); R07.1 Chest pain on breathing
CPT/HCPCS: 71046; 80053; 85025; 87636; 99284